=== PATIENT | male | born 1960 | race Caucasian/White ===

== ENCOUNTER 2023-10-29 19:04 | Outpatient (BNV) | payer MEDICARE, SELFPAY | END 2023-11-23 09:41 | PROVIDERS: Admitting Provider Psychiatry & Neurology Psychiatry; Visit Provider Internal Medicine Cardiovascular Disease | DX: I45.10 Unspecified right bundle-branch block (principal); R94.31 Abnormal electrocardiogram [ECG] [EKG] | CPT/HCPCS: 93010 ==

== ENCOUNTER 2023-10-29 19:04 | Inpatient (IN) | payer MEDICARE, SELFPAY ==
--- NOTE | ~2023-10-29 | XR_ITS ---
EXAMINATION: XR ABDOMEN KUB CLINICAL INDICATION: Patient states pain abdomen. Patient in hospital and wearing hospital provided garments per technologist's statement. Cholelithiasis on CT chest of December 21, 2023. COMPARISON: X-ray chest November 14, 2023. CT chest December 21, 2023. TECHNIQUE: 2 AP views of the abdomen. FINDINGS: Degenerative changes in the lumbar spine. Diffuse demineralization. Multiple prominent, distended air-filled loops of small and large bowel. Guptqqan-qx-mumwu amount of stool in the colon. Multiple snaps overlie the upper and lower abdomen and correlation with clinical exam recommended to confirm external location. Small pelvic calcifications are likely vascular. 5 mm calcific/sclerotic density overlying the left inferior pubic ramus, could represent a bony lesion versus a bone island versus a soft tissue calcification. XR/XR KUB IMPRESSION: Multiple prominent, distended air-filled loops of small and large bowel. Iboafzfh-go-ygwdh amount of stool in the colon. Correlation with clinical exam recommended to determine further management including possible additional imaging with CT scan of the abdomen and pelvis if abdominal pathology is suspected. This study was presented today January 19, 2024 for interpretation. Stat results provided at this time as requested by referring provider.
--- NOTE | ~2023-10-29 | XR_ITS ---
EXAMINATION: XR CHEST CLINICAL INFORMATION: Lethargy COMPARISON: None available. TECHNIQUE: Frontal view of the chest was obtained. FINDINGS: Lungs are well expanded. No pulmonary mass, consolidation or pleural effusion. There appears to be a minimal peripheral linear opacity of likely scarring in the right lateral base. Also, a thin linear focus of suspected minimal scarring is seen in the region of the superior lingula. Cardiac silhouette is normal in size. The hilar contours are normal. The pulmonary vascular pattern is normal. Bones appear to be diffusely osteopenic. XR/XR chest 1V IMPRESSION: No evidence of acute disease. No pulmonary mass, pneumonia or pleural effusion.
--- NOTE | ~2023-10-29 | CT_ITS ---
EXAMINATION: CT CHEST WITHOUT CONTRAST CLINICAL INFORMATION: Question aspiration. COMPARISON: Chest radiograph dated 11/14/2023. TECHNIQUE: Multidetector volumetric CT imaging of the chest was done. Axial MIP volume rendering provided. Sagittal and coronal reformatted images were obtained. This CT examination was performed using dose optimization techniques as appropriate, variously including the following: *Automated exposure control *Adjustment of mA and/or kV according to patient size (this includes techniques or standardized protocols for targeted exams where dose is matched to indication/reason for exam; i.e. extremities or head) *Use of iterative reconstruction technique DLP: 236 mGy-cm FINDINGS: JOURNEYMAN GLAZIER: There is mild hyperinflation. The lungs are grossly clear. LUNGS: In the posterior segment of the right upper lobe (5:75 and 7:54), a 4 mm subpleural noncalcified nodule is seen, with adjacent pleural thickening. There is a benign, calcified granuloma within the superior segment of the right lower lobe. There are bibasilar foci of linear scar/subsegmental atelectasis, without associated focal airway obstruction. No mass, infiltrate or groundglass opacity is seen. No generalized small airway thickening is seen. The central airways appear patent. MEDIASTINUM: The mediastinum is normal. CORONARY ARTERY CALCIFICATION: Very mild. PLEURA: There is no pleural effusion. No pleural mass. There is nonspecific pleural thickening at the posterior right base. AXILLA: No lymphadenopathy. UPPER ABDOMEN: There is mild cholelithiasis. The adrenal glands are unremarkable. A benign, simple right renal upper pole cyst is seen. OSSEOUS STRUCTURES: There is a marked kyphoscoliosis. There is multi-level thoracic spondylosis. No acute or aggressive osseous finding is seen. CT/CT chest wo IV con IMPRESSION: 1. No focal infiltrate is seen. 2. A 4 mm noncalcified subpleural nodule is seen within the posterior segment of the right upper lobe. According to the UPDATED 2017 Fleischner Society recommendations, the advised follow-up imaging for solid nodules < 6 mm is: LOW RISK PATIENT: No routine follow-up. HIGH RISK PATIENT: Optional CT at 12 months. 3. There is no thoracic lymphadenopathy or pleural effusion. 4. There is a marked kyphoscoliosis. No acute or aggressive osseous lesion is seen. 5. There is mild cholelithiasis. Fleischner guidelines were followed.
[2023-10-29 20:00] VITALS: BP 125/57; PULSE 93; RESP 18; TEMP 37.3; O2SAT 95
[2023-10-29 23:10] VITALS: BMI 19.6
--- NOTE | 2023-10-30 02:01 | PC.ADMIT ---
Admitted these 63 year old male patient per stretcher via ambulance accompanied by ambulance staff. Patient signed the CV and oriented to the unit, room and staff. Pt put to bed, body search and skin checks done. Pt said he wears eyeglasses for reading, has his own teeth and no dentures. Abdomen soft and nontender w/ + bowel sounds in 4 quadrants and no edema noted. Pt has a hump on his back. All visible skin intact, no bruises and no skin tears noted. During admission process pt is cooperative at the beginning but become irritable and said he wants to sleep. Pt c/o being cold and asking for additional blanket. Pt also said that he is hungry and thirsty. Pt given a chicken salad and a cup of cranberry juice. Pt denies SI/HI/anxiety depression/AVH/ Paranoia/PAIN. Pt refused to sign the legals and said he will sign it tomorrow coz he is very tired already and want to sleep. Roya Condon informed of the admission and waiting for orders. Pt has presenting problems of Failure to thrive in adult, depression, Schizophrenia versus schizo affective D/O, Severe malnutrition, Oropharyngeal dysphagia, ckd2 and Seizure D/O.We'll continue to monitor the patient.
[2023-10-30 08:00] VITALS: BP 98/62; PULSE 89; RESP 18; TEMP 35.8; O2SAT 97
--- NOTE | 2023-10-30 09:38 | HO.PSYADMNOT ---
HPI Date of Service: 10/30/23 Chief Complaint: Schizoaffective disorder, unspecified type Sources of Information: patient interviewed, chart reviewed and crisis/core team assessment reviewed HPI Subjective Notes: [place] Warning and Conditional Voluntary Narrative: Mr. Borjas is a 63 years-old with a hx of schizophrenia. He was initially admitted to psychiatric unit at [facility] in 04/2023 after [facility] due to suicidal statements, presenting with persecutory and paranoid delusions stating family, government and others were after him because he had millions that he has not been able to access. Prior to [facility] to the [facility] pt had been incarcerated for 7 days for violating restraining order that sister had on him for threats to harm her. He was noted to not be eating nor drinking well. He was psychiatrically committed on 05/19/23 and started on olanzapine. He was sent to ED due to dehydration, found to have cholelithiasis, positive aeromonas, treated with IV ceftriaxone. Once medically cleared, he was readmitted to [facility] inpatient psych admission due to inability to care for himself, failure to thrive and committed once again for involuntary psychiatric treatment on 08/10/23. He last admission there was from 07/20-09/06/2023, however, he was sent out about 7 times to the ED, due to severe HOTN and dehydration. [facility] declined to take him back as pt medically more compromised (failure to thrive). Per records, pt was tried on olanzapine, initially then switch to seroquel due to increase confusion with olanzapine. He was also tried on seroquel. He was also tried on clozaril but it states that it was discontinued due to acute mental status changes than improved once clozaril was discontinued. He ultimately treated with combination of abilify, titrated to 20mg po daily, depakote. It does appear that pt did not show any significant improvement and was mostly in bed, with very limited oral intake. On the unit, pt reports he was in the hospital because they were concern about the fact that he was not eating nor drinking. He asked this automatic typewriter inspector to let him sleep, because he felt tired and declined to answer any more questions. He refused all medications today. He also refused labs. Past Psychiatric History: Inpt: 02/2020 [facility] (paranoia); 04/2023-07/15/23 (not eating nor drinking ,paranoid delusions) (he was psychiatrically committed on 05/19/23), 07/20/23-09/06/23: not eating/drinking, several ED transfers due to dehydration OP: none [facility] casework supervisor Lauren Bernard [phone] Hx of suicide attempts several years ago Legal- incarcerated at [facility] for violation of restraining order for 7 months Medical Evaluation Reviewed: Yes [facility] Medical History Schizoaffective disorder Failure to thrive in adult GERD (gastroesophageal reflux disease) Family History: unknown Social History: Per records- pt never . No children. He was raised by both parents and lived with father until he in 2019. Pt has been homeless since. He completed HS, one year college. He has two sister, one is , other one has restraining order against him. Substance History: remote hx of alcohol use. Trauma History: not disclosed Diagnostics Vital Signs (24Hr): Vital Signs - 24 hr 10/29/23 20:00 10/30/23 08:00 Temperature 99.1 F 96.5 F L Pulse Rate 93 89 Respiratory Rate 18 18 Blood Pressure 125/57 L 98/62 Pulse Oximetry 95 97 Oxygen Delivery Method Room Air Room Air BMI result Body Mass Index 19.6 Meds/Allergies Meds Home Medications ?Medication ?Instructions ?Recorded ?Confirmed ?Type Ativan 1 mg PO Q4-6H PRN Anxiety 10/29/23 10/29/23 History Miralax 17 g PO BID 10/29/23 10/29/23 History Zofran 4 mg IV Q4-6H PRN Nausea 10/29/23 10/29/23 History acetaminophen 650 mg PO Q4-6H 10/29/23 10/29/23 History aripiprazole 20 mg PO DAILY 10/29/23 10/29/23 History calcium carbonate 500 mg PO Q3-4H PRN Indigestion 10/29/23 10/29/23 History divalproex 250 mg PO BID 10/29/23 10/29/23 History magnesium hydroxide 15 ml PO DAILY 10/29/23 10/29/23 History nystatin 5 ml PO TID 10/29/23 10/29/23 History paliperidone 3 mg PO BEDTIME 10/29/23 10/29/23 History pantoprazole 40 mg PO DAILY 10/29/23 10/29/23 History senna 8.6 mg PO BEDTIME 10/29/23 10/29/23 History sodium phosphate 1 appl Not Applicable DAILY PRN 10/29/23 10/29/23 History Constipation Allergies Allergies Allergy/AdvReac Type Severity Reaction Status Date / Time omeprazole Allergy Unknown Verified 10/30/23 00:09 Mental Status Exam Mental Status Exam Narrative: Appearance: cachectic, malnourished, in NAD Behavior: guarded, not engaging in any conversation Psychomotor: no agitation or retardation noted Speech: mostly clear, regular rate, minimally spontaneous TP: wanting to rest TC: tired, not wanting to take any medications Mood: tired Affect: constricted SI: unable to assess HI: unable to assess VH/AH: appears internally preoccupied Delusions: unable to assess extend of it Insight/judgment: impaired x 2. memory/cog: alert, not able to assess orientation as pt declines to answer questions. Assessment & Plan Assessment & Plan (1) Schizophrenia: Status: Acute Code(s): F20.9 - Schizophrenia, unspecified Plan Mr. Adame is 63 y/o male with hx schizophrenia who has been [facility] due to minimal oral intake, paranoid delusions, causing severe failure to thrive since 04/2023. He had to be sent out for medical treatment several times due to dehydration, cholelithiasis, ultimately, psychiatric facility [facility] did not [facility] him back as they reported pt needs more medical support. He has been at [facility] since 09/06/2023 pending placement in psychiatric admission. records indicate that pt had minimal response to medications such as olanzapine, abilify, seroquel. He even had clozaril trial but had a marked change in mentation that resolved once this medication was discontinued. Pt also noted to have dysphasia and on chopped food. Will order ST to assess food consistency need. Will also order nutritional consult. Pt already declined medications, food, labs without showing understanding of potential medical conditions. Consider ECT,going for guardianship as pt not able to care for himself. Will also add DVT prophylaxis. PLAN 1. admit to S1, CV, 15 minutes checks 2. continue current medications, monitor VS, oral intake 3. obtain collateral information 4. aftercare planning. Patient educated on: diagnosis and medication risk/benefits Informed Consent: understands Reason for continued inpatient stay Substantial Risk for: inability to function Statement Statement: I have reviewed the history and physical and performed a pertinent examination on my patient. No changes have occurred unless specified. If the History and Physical was not performed prior to admission, the Hospitalist's service will be consulted for completing the admission physical. Time Spent With Patient Time: Total time managing care of this patient today ____ minutes.
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
[2023-10-30] MEDS: Nystatin Oral Susp 500,000 UNIT/5 ML ORAL.SUSP 500000 UNIT PO (14:29)
[2023-10-30 20:00] VITALS: BP 117/74; PULSE 94; RESP 18; TEMP 36.3; O2SAT 97
[2023-10-31 08:00] VITALS: BP 89/54; PULSE 90; RESP 18; TEMP 36.2; O2SAT 96
[2023-10-31] MEDS: Nystatin Oral Susp 500,000 UNIT/5 ML ORAL.SUSP 500000 UNIT PO ×2 (08:14→14:37)
--- NOTE | 2023-10-31 14:47 | P.PNPSI_ITS ---
Subjective Subjective Date of Service: 10/31/23 Reason For Visit: Schizoaffective disorder, unspecified type Subjective Notes: Conditional Voluntary Interim History: Pt woke up at 4am, pacing. slept for total of 6hrs. He continues to decline medication. He had 3 ensures, some fluids. He declined to talk with this check writer salesperson, stating everything is fine. BP on low side. Review of Systems Review of Systems General: No fevers, malaise, unintentional weight loss HEENT: No blurred vision, diplopia. No sore throat, nasal congestion, rhinorrhea, sinus pain, ear pain Cardiovascular: No chest pain, palpitations, or leg edema Respiratory: No shortness of breath, wheezing, cough GI: No abdominal pain, nausea, vomiting, diarrhea, constipation, melena, hematochezia : No dysuria, hematuria, increased urinary frequency, decreased urinary output MSK: No myalgia, back pain Neuro: No headaches, weakness, paresthesias Skin: No rashes or lesions Pt affect flat, unengaged in interview. Question reliability of [facility] Mental Status Exam Mental Status Exam Narrative: Appearance: cachectic, malnourished, in NAD Behavior: guarded, not engaging in any conversation Psychomotor: no agitation or retardation noted Speech: mostly clear, regular rate, minimally spontaneous TP: wanting to rest TC: tired, not wanting to take any medications Mood: tired Affect: constricted SI: unable to assess HI: unable to assess VH/AH: appears internally preoccupied Delusions: unable to assess extend of it Insight/judgment: impaired x 2. memory/cog: alert, not able to assess orientation as pt declines to answer questions. Diagnostics Vital Signs (24Hr): Vital Signs - 24 hr 10/30/23 20:00 10/31/23 08:00 Temperature 97.4 F 97.2 F Pulse Rate 94 90 Respiratory Rate 18 18 Blood Pressure 117/74 89/54 L Pulse Oximetry 97 96 Oxygen Delivery Method Room Air Room Air BMI result Body Mass Index 19.6 Medications Medications Current Medications Acetaminophen (Acetaminophen 325 Mg Tablet) 650 mg PO Q6H PRN PRN Reason: Headache/Pain Mild Scale (1-3) Al Hydroxide/Mg Hydroxide (Magnesium Hydrox/Alum Hydrox 30 Ml Oral.Susp) 30 ml PO Q6H PRN PRN Reason: Heartburn/Nausea Aripiprazole (Aripiprazole 20 Mg Tablet) 20 mg PO DAILY [facility] Last Admin: 10/31/23 08:14 Dose: Not Given Famotidine (Famotidine 20 Mg Tablet) 20 mg PO BID@0630,1630 [facility] Last Admin: 10/31/23 05:56 Dose: Not Given Magnesium Hydroxide (Milk Of Magnesia 30 Ml Oral.Susp) 30 ml PO DAILY PRN PRN Reason: Constipation Mirtazapine (Mirtazapine 15 Mg Tablet) 15 mg PO BEDTIME [facility] Last Admin: 10/30/23 21:13 Dose: Not Given Nystatin (Nystatin Oral Susp 500,000 Unit/5 Ml Oral.Susp) 500,000 unit PO TID S Last Admin: 10/31/23 14:37 Dose: 500,000 unit Paliperidone (Paliperidone Er 3 Mg Tab.Er.24) 3 mg PO BEDTIME [facility] Last Admin: 10/30/23 21:13 Dose: Not Given Senna (Sennosides 8.6 Mg Tablet) 8.6 mg PO BEDTIME [facility] Last Admin: 10/30/23 21:13 Dose: Not Given Trazodone HCl (Trazodone Hcl 50 Mg Tablet) 50 mg PO BEDTIME PRN PRN Reason: Insomnia Allergies Allergies Allergy/AdvReac Type Severity Reaction Status Date / Time omeprazole Allergy Unknown Verified 10/30/23 00:09 Assessment & Plan Assessment & Plan (1) Schizophrenia: Status: Acute Code(s): F20.9 - Schizophrenia, unspecified (2) Routine medical exam: Status: Acute Code(s): Z00.00 - Encounter for general adult medical examination without abnormal findings Plan Mr. Adame is 63 y/o male with hx schizophrenia who has been admitted [facility] due to minimal oral intake, paranoid delusions, causing severe failure to thrive since 04/2023. He had to be sent out for medical treatment several times due to dehydration, cholelithiasis, ultimately, psychiatric facility [facility] did not [facility] him back as they reported pt needs more medical support. He has been at [facility] since 09/06/2023 pending placement in psychiatric admission. records indicate that pt had minimal response to medications such as olanzapine, abilify, seroquel. He even had clozaril trial but had a marked change in mentation that resolved once this medication was discontinued. Pt also noted to have dysphasia and on chopped food. Will order ST to assess food consistency need. Will also order nutritional consult. Pt already declined medications, food, labs without showing understanding of potential medical conditions. Consider ECT,going for guardianship as pt not able to care for himself. Will also add DVT prophylaxis. PLAN 1. admit to S1, CV, 15 minutes checks 2. continue current medications, monitor VS, oral intake 3. obtain collateral information 4. aftercare planning. Reason for continued inpatient stay Substantial Risk for: inability to function Time Spent With Patient Time: Total time managing care of this patient today ____ minutes.
[2023-10-31 20:00] VITALS: BP 111/67; PULSE 91; RESP 18; TEMP 36.4; O2SAT 98
[2023-10-31] MEDS: Magnesium Hydrox/Alum Hydrox 30 ML ORAL.SUSP PO (23:58)
[2023-11-01] MEDS: Famotidine 20 MG TABLET PO ×2 (05:53→16:13)
[2023-11-01 08:00] VITALS: BP 103/56; PULSE 72; RESP 16; TEMP 36.4; O2SAT 96
--- NOTE | 2023-11-01 09:29 | P.PNPSI_ITS ---
Subjective Subjective Date of Service: 11/01/23 Reason For Visit: Schizoaffective disorder, unspecified type Subjective Notes: Conditional Voluntary Interim History: Pt did not sleep much last night. He was pacing, restless. This morning he was walking as well, would sit end of his bed and suddenly would stand up and start pacing. He has been drinking ensure. He reports he plans to stay few days and then on my way. when asked where is he going, he states home maybe. He then after this grant writer asked to clarify stated that he does not have a home. He states he can find one of his own. He declined all medications, mostly combination of antidepressant, remeron and antipsychotic medications. will complete ACL- get an idea as his ability to care forhimself. Review of Systems Review of Systems General: No fevers, malaise, unintentional weight loss HEENT: No blurred vision, diplopia. No sore throat, nasal congestion, rhinorrhea, sinus pain, ear pain Cardiovascular: No chest pain, palpitations, or leg edema Respiratory: No shortness of breath, wheezing, cough GI: No abdominal pain, nausea, vomiting, diarrhea, constipation, melena, hematochezia : No dysuria, hematuria, increased urinary frequency, decreased urinary output MSK: No myalgia, back pain Neuro: No headaches, weakness, paresthesias Skin: No rashes or lesions Pt affect flat, unengaged in interview. Question reliability of ros Mental Status Exam Mental Status Exam Narrative: Appearance: cachectic, malnourished, in NAD Behavior: guarded, not engaging in any conversation Psychomotor: no agitation or retardation noted Speech: mostly clear, regular rate, minimally spontaneous TP: wanting to rest TC: tired, not wanting to take any medications Mood: tired Affect: constricted SI: denies HI:denies VH/AH: appears internally preoccupied Delusions: suspicious about medications/treatment Insight/judgment: impaired x 2. memory/cog: alert, not able to assess orientation as pt declines to answer questions. Diagnostics Vital Signs (24Hr): Vital Signs - 24 hr 10/31/23 20:00 11/01/23 08:00 Temperature 97.6 F 97.6 F Pulse Rate 91 72 Respiratory Rate 18 16 Blood Pressure 111/67 103/56 L Pulse Oximetry 98 96 Oxygen Delivery Method Room Air Room Air BMI result Body Mass Index 19.6 Medications Medications Current Medications Acetaminophen (Acetaminophen 325 Mg Tablet) 650 mg PO Q6H PRN PRN Reason: Headache/Pain Mild Scale (1-3) Al Hydroxide/Mg Hydroxide (Magnesium Hydrox/Alum Hydrox 30 Ml Oral.Susp) 30 ml PO Q6H PRN PRN Reason: Heartburn/Nausea Last Admin: 10/31/23 23:58 Dose: 30 ml Aripiprazole (Aripiprazole 20 Mg Tablet) 20 mg PO DAILY [facility] Last Admin: 10/31/23 08:14 Dose: Not Given Famotidine (Famotidine 20 Mg Tablet) 20 mg PO BID@0630,1630 [facility] Last Admin: 11/01/23 05:53 Dose: 20 mg Magnesium Hydroxide (Milk Of Magnesia 30 Ml Oral.Susp) 30 ml PO DAILY PRN PRN Reason: Constipation Mirtazapine (Mirtazapine 15 Mg Tablet) 15 mg PO BEDTIME [facility] Last Admin: 10/31/23 22:08 Dose: Not Given Nystatin (Nystatin Oral Susp 500,000 Unit/5 Ml Oral.Susp) 500,000 unit PO TID [facility] Last Admin: 10/31/23 22:08 Dose: Not Given Paliperidone (Paliperidone Er 3 Mg Tab.Er.24) 3 mg PO BEDTIME [facility] Last Admin: 10/31/23 22:08 Dose: Not Given Senna (Sennosides 8.6 Mg Tablet) 8.6 mg PO BEDTIME [facility] Last Admin: 10/31/23 22:08 Dose: Not Given Trazodone HCl (Trazodone Hcl 50 Mg Tablet) 50 mg PO BEDTIME PRN PRN Reason: Insomnia Allergies Allergies Allergy/AdvReac Type Severity Reaction Status Date / Time omeprazole Allergy Unknown Verified 10/30/23 00:09 Assessment & Plan Assessment & Plan (1) Schizophrenia: Status: Acute Code(s): F20.9 - Schizophrenia, unspecified Plan Mr. Adame is 63 y/o male with hx schizophrenia who has been admitted to [facility] for psychiatric treatment due to minimal oral intake, paranoid delusions, causing severe failure to thrive since 04/2023. He had to be sent out for medical treatment several times due to dehydration, cholelithiasis, ultimately, psychiatric facility [facility] did not take him back as they reported pt needs more medical support. He has been at [facility] since 09/06/2023 pending placement in psychiatric admission. records indicate that pt had minimal response to medications such as olanzapine, abilify, seroquel. He even had clozaril trial but had a marked change in mentation that resolved once this medication was discontinued. Pt also noted to have dysphasia and on chopped food. Will order ST to assess food consistency need. Will also order nutritional consult. Pt already declined medications, food, labs without showing understanding of potential medical conditions. Consider ECT,going for guardianship as pt not able to care for himself. Will also add DVT prophylaxis. PLAN 1. admit to S1, CV, 15 minutes checks 2. continue current medications, monitor VS, oral intake 3. obtain collateral information 4. aftercare planning. Reason for continued inpatient stay Substantial Risk for: inability to function Time Spent With Patient Time: Total time managing care of this patient today ____ minutes.
[2023-11-01] MEDS: Nystatin Oral Susp 500,000 UNIT/5 ML ORAL.SUSP 500000 UNIT PO ×2 (10:43→15:06)
[2023-11-01] MEDS: ARIPiprazole 20 MG TABLET PO (10:43)
[2023-11-01 15:29] VITALS: BMI 19.6
--- NOTE | 2023-11-01 15:37 | MHC.SL.SWA ---
Speech Pathologist Impression: Oral phase dysphagia Dysphasia Diet Status:Upgrade from NDD2 to NDD3 Liquid Consistency and Strategies for Safe Swallow: Liquid Intake Recommendation: Thin Liquid Intake Strategies: Small Sips Solid Food Consistency: Dietary Recommendations: Chopped/Advanced (NDD3) Additional Modifications to Solid Foods: Patient w/ mild oral phase dysphagia, characterized by prolonged period of mastication on harder solids and mild oral residue post-swallow. Patient is able to clear residuals with dry swallow and/or sips of liquid. No overt s/s of aspiration observed with PO intake. Recommend UPGRADE to CHOPPED/ADVANCED (NDD3) diet, continue on THIN liquids, pills CRUSHED in PUREE. Recommend strategies to promote oral clearance: take small bites, dry swallow between bites, alternate solids/liquids. Oral Medication Intake: Crushed with Puree Please contact the pharmacy regarding appropriate crushable or liquid drug formulations that are available whenever modified delivery is recommended. Compensatory Strategies and Precautions to be Taken for Safe Swallow: Sitting Upright (90 deg) Double Swallow Small Bites and Sips Alternate Liquids/Solids Rate of Ingestion Change Avoid Specific Foods Supervision While Eating and Drinking for Safe Swallow: Total Supervision (1:1) Foods to Avoid: Hard, dry, tough to chew solids Swallowing Recommended Treatments: Compens. Strategy Educat. Recommendation for Speech: Inpatient Speech Therapy Comment: SCHOLARSHIP COUNSELOR to f/u 1-2x to monitor tolerance Frequency/Duration: M-F PRN Date Range for Service Req: Timeline to reassess: Dry Cell Sealer Clinican/Clinical Fellow: No Supervisory Statement: I have reviewed and agree with the student/clinical fellow's documentation: N/A Speech Language Pathologist: Minerva Carmen M.A., [facility]-SCHOLARSHIP COUNSELOR
--- NOTE | 2023-11-01 15:41 | MHC.CLN ---
NUTRITION CONSULT FOR FAILURE TO THRIVE. DIET=REGULAR, GROUND. HX VERY POOR INTAKE. ACCEPTS ENSURE SUPPLEMENT. ENSURE TID ORDERED (1050 KCALS, 60 G PROTEIN). SUPPLEMENT ALSO AVAILABLE ON THE UNIT AND STAFF MAY PROVIDE ACCEPTED BY PATIENT. QUALIFIES MODERATELY MALNOURISHED BASED ON REPORTED HX POOR PO AND MILD DEPLETION OF BODY FAT AND MUSCLE MASS. FOLLOW FOR PO INTAKE. ENCOURAGE INTAKE ABLE. SEE CLINICAL NUTRITION ASSESSMENT 11/01/23.
[2023-11-01 20:00] VITALS: BP 93/53; PULSE 77; RESP 18; TEMP 36.2; O2SAT 98
[2023-11-02] MEDS: Famotidine 20 MG TABLET PO ×2 (06:58→15:57)
[2023-11-02 08:00] VITALS: BP 94/56; PULSE 76; RESP 18; TEMP 36.2; O2SAT 96
[2023-11-02] MEDS: Nystatin Oral Susp 500,000 UNIT/5 ML ORAL.SUSP 500000 UNIT PO ×2 (10:04→15:57)
[2023-11-02] MEDS: ARIPiprazole 20 MG TABLET PO (10:04)
--- NOTE | 2023-11-02 10:33 | HO.PSYCHPN ---
Subjective Subjective Date of Service: 11/02/23 Reason For Visit: Schizoaffective disorder, unspecified type Subjective Notes: Conditional Voluntary Interim History: Pt pacing mostly at night, slept only 4 hrs. He reports he bit side of his mouth and it hurts. He denies SI/HI. He continues to refused medications for mood and antipsychotics. impaired insight as to his inability to care for himself. nursing monitoring closely his oral intake- he has had 3 ensures today. Review of Systems Review of Systems General: No fevers, malaise, unintentional weight loss HEENT: No blurred vision, diplopia. No sore throat, nasal congestion, rhinorrhea, sinus pain, ear pain Cardiovascular: No chest pain, palpitations, or leg edema Respiratory: No shortness of breath, wheezing, cough GI: No abdominal pain, nausea, vomiting, diarrhea, constipation, melena, hematochezia : No dysuria, hematuria, increased urinary frequency, decreased urinary output MSK: No myalgia, back pain Neuro: No headaches, weakness, paresthesias Skin: No rashes or lesions Pt affect flat, unengaged in interview. Question reliability of ros Mental Status Exam Mental Status Exam Narrative: Appearance: cachectic, malnourished, in NAD Behavior: guarded, not engaging in any conversation Psychomotor: no agitation or retardation noted Speech: mostly clear, regular rate, minimally spontaneous TP: wanting to rest TC: tired, not wanting to take any medications Mood: tired Affect: constricted SI: denies HI:denies VH/AH: appears internally preoccupied Delusions: suspicious about medications/treatment Insight/judgment: impaired x 2. memory/cog: alert, not able to assess orientation as pt declines to answer questions. Diagnostics Vital Signs (24Hr): Vital Signs - 24 hr 11/01/23 20:00 11/02/23 08:00 Temperature 97.1 F 97.2 F Pulse Rate 77 76 Respiratory Rate 18 18 Blood Pressure 93/53 L 94/56 L Pulse Oximetry 98 96 Oxygen Delivery Method Room Air Room Air BMI result Body Mass Index 19.6 Medications Medications Current Medications Acetaminophen (Acetaminophen 325 Mg Tablet) 650 mg PO Q6H PRN PRN Reason: Headache/Pain Mild Scale (1-3) Al Hydroxide/Mg Hydroxide (Magnesium Hydrox/Alum Hydrox 30 Ml Oral.Susp) 30 ml PO Q6H PRN PRN Reason: Heartburn/Nausea Last Admin: 10/31/23 23:58 Dose: 30 ml Aripiprazole (Aripiprazole 20 Mg Tablet) 20 mg PO DAILY [facility] Last Admin: 11/02/23 10:04 Dose: 20 mg Famotidine (Famotidine 20 Mg Tablet) 20 mg PO BID@0630,1630 [facility] Last Admin: 11/02/23 06:58 Dose: 20 mg Magnesium Hydroxide (Milk Of Magnesia 30 Ml Oral.Susp) 30 ml PO DAILY PRN PRN Reason: Constipation Mirtazapine (Mirtazapine 15 Mg Tablet) 15 mg PO BEDTIME [facility] Last Admin: 11/01/23 22:08 Dose: Not Given Nystatin (Nystatin Oral Susp 500,000 Unit/5 Ml Oral.Susp) 500,000 unit PO TID [facility] Last Admin: 11/02/23 10:04 Dose: 500,000 unit Paliperidone (Paliperidone Er 3 Mg Tab.Er.24) 3 mg PO BEDTIME [facility] Last Admin: 11/01/23 22:08 Dose: Not Given Senna (Sennosides 8.6 Mg Tablet) 8.6 mg PO BEDTIME [facility] Last Admin: 11/01/23 22:08 Dose: Not Given Trazodone HCl (Trazodone Hcl 50 Mg Tablet) 50 mg PO BEDTIME PRN PRN Reason: Insomnia Allergies Allergies Allergy/AdvReac Type Severity Reaction Status Date / Time omeprazole Allergy Unknown Verified 10/30/23 00:09 Assessment & Plan Assessment & Plan (1) Schizophrenia: Status: Acute Code(s): F20.9 - Schizophrenia, unspecified Plan Mr. Adame is 63 y/o male with hx schizophrenia who has been admitted [facility] for [facility] due to minimal oral intake, paranoid delusions, causing severe failure to thrive since 04/2023. He had to be sent out for medical treatment several times due to dehydration, cholelithiasis, ultimately, psychiatric facility [facility] did [facility] him [facility] as they reported pt needs more medical support. He has been at [facility] since 09/06/2023 pending placement in psychiatric admission. records indicate that pt had minimal response to medications such as olanzapine, abilify, seroquel. He even had clozaril trial but had a marked change in mentation that resolved once this medication was discontinued. Pt also noted to have dysphasia and on chopped food. Will order ST to assess food consistency need. Will also order nutritional consult. Pt already declined medications, food, labs without showing understanding of potential medical conditions. Consider ECT,going for guardianship as pt not able to care for himself. Will also add DVT prophylaxis. PLAN 1. admit to S1, CV, 15 minutes checks 2. continue current medications, monitor VS, oral intake 3. obtain collateral information 4. aftercare planning. Reason for continued inpatient stay Substantial Risk for: inability to function Time Spent With Patient Time: Total time managing care of this patient today ____ minutes.
[2023-11-02 20:00] VITALS: BP 106/72; PULSE 92; RESP 16; TEMP 36; O2SAT 99
[2023-11-03] MEDS: Famotidine 20 MG TABLET PO (05:42)
[2023-11-03 08:00] VITALS: BP 108/67; PULSE 95; RESP 18; TEMP 37.1; O2SAT 98
[2023-11-03] MEDS: Nystatin Oral Susp 500,000 UNIT/5 ML ORAL.SUSP 500000 UNIT PO ×2 (08:55→14:30)
--- NOTE | 2023-11-03 09:10 | HO.PSYCHPN ---
Subjective Subjective Date of Service: 11/03/23 Reason For Visit: Schizoaffective disorder, unspecified type Subjective Notes: [place] Warning and Conditional Voluntary Interim History: Pt slept 8hrs. He continues to refuses medications, pacing at times. He did not have any ensures today nor any food, despite nursing offering for several days. Pt guarded, minimally talking or engaging in conversation with this technical report writer or staff. Review of Systems Review of Systems General: No fevers, malaise, unintentional weight loss HEENT: No blurred vision, diplopia. No sore throat, nasal congestion, rhinorrhea, sinus pain, ear pain Cardiovascular: No chest pain, palpitations, or leg edema Respiratory: No shortness of breath, wheezing, cough GI: No abdominal pain, nausea, vomiting, diarrhea, constipation, melena, hematochezia : No dysuria, hematuria, increased urinary frequency, decreased urinary output MSK: No myalgia, back pain Neuro: No headaches, weakness, paresthesias Skin: No rashes or lesions Pt affect flat, unengaged in interview. Question reliability of ros Mental Status Exam Mental Status Exam Narrative: Appearance: cachectic, malnourished, in NAD Behavior: guarded, not engaging in any conversation Psychomotor: no agitation or retardation noted Speech: mostly clear, regular rate, minimally spontaneous TP: wanting to rest TC: tired, not wanting to take any medications Mood: tired Affect: constricted SI: denies HI:denies VH/AH: appears internally preoccupied Delusions: suspicious about medications/treatment Insight/judgment: impaired x 2. memory/cog: alert, not able to assess orientation as pt declines to answer questions. Diagnostics Vital Signs (24Hr): Vital Signs - 24 hr 11/02/23 20:00 11/03/23 08:00 Temperature 96.8 F 98.8 F Pulse Rate 92 95 Respiratory Rate 16 18 Blood Pressure 106/72 108/67 Pulse Oximetry 99 98 Oxygen Delivery Method Room Air Room Air BMI result Body Mass Index 19.6 Medications Medications Current Medications Acetaminophen (Acetaminophen 325 Mg Tablet) 650 mg PO Q6H PRN PRN Reason: Headache/Pain Mild Scale (1-3) Al Hydroxide/Mg Hydroxide (Magnesium Hydrox/Alum Hydrox 30 Ml Oral.Susp) 30 ml PO Q6H PRN PRN Reason: Heartburn/Nausea Last Admin: 10/31/23 23:58 Dose: 30 ml Aripiprazole (Aripiprazole 20 Mg Tablet) 20 mg PO DAILY [facility] Last Admin: 11/03/23 08:55 Dose: Not Given Famotidine (Famotidine 20 Mg Tablet) 20 mg PO BID@0630,1630 [facility] Last Admin: 11/03/23 05:42 Dose: 20 mg Magnesium Hydroxide (Milk Of Magnesia 30 Ml Oral.Susp) 30 ml PO DAILY PRN PRN Reason: Constipation Mirtazapine (Mirtazapine 15 Mg Tablet) 15 mg PO BEDTIME [facility] Last Admin: 11/02/23 20:33 Dose: Not Given Nystatin (Nystatin Oral Susp 500,000 Unit/5 Ml Oral.Susp) 500,000 unit PO TID [facility] Last Admin: 11/03/23 08:55 Dose: 500,000 unit Paliperidone (Paliperidone Er 3 Mg Tab.Er.24) 3 mg PO BEDTIME [facility] Last Admin: 11/02/23 20:34 Dose: Not Given Senna (Sennosides 8.6 Mg Tablet) 8.6 mg PO BEDTIME [facility] Last Admin: 11/02/23 20:34 Dose: Not Given Trazodone HCl (Trazodone Hcl 50 Mg Tablet) 50 mg PO BEDTIME PRN PRN Reason: Insomnia Allergies Allergies Allergy/AdvReac Type Severity Reaction Status Date / Time omeprazole Allergy Unknown Verified 10/30/23 00:09 Assessment & Plan Assessment & Plan (1) Schizophrenia: Status: Acute Code(s): F20.9 - Schizophrenia, unspecified Plan Mr. Adame is 63 y/o male with hx schizophrenia who has been admitted [facility] for [facility] due to minimal oral intake, paranoid delusions, causing severe failure to thrive since 04/2023. He had to be sent out for medical treatment several times due to dehydration, cholelithiasis, ultimately, psychiatric [facility] as they reported pt needs more medical support. He has been at [facility] since 09/06/2023 pending placement in psychiatric admission. records indicate that pt had minimal response to medications such as olanzapine, abilify, seroquel. He even had clozaril trial but had a marked change in mentation that resolved once this medication was discontinued. Pt also noted to have dysphasia and on chopped food. Will order ST to assess food consistency need. Will also order nutritional consult. Pt already declined medications, food, labs without showing understanding of potential medical conditions. Consider ECT,going for guardianship as pt not able to care for himself. Will also add DVT prophylaxis. PLAN 11/02 did not eat or drink anything. minimally eating or drinking. Reason for continued inpatient stay Substantial Risk for: inability to function Time Spent With Patient Time: Total time managing care of this patient today ____ minutes.
--- NOTE | 2023-11-03 14:24 | MHC.CLN ---
F/U DIET=REGULAR. VERY POOR INTAKE OF FOOD. ACCEPTS ENSURE SUPPLEMENT. ENSURE TID ORDERED (1050 KCALS, 60 G PROTEIN). SUPPLEMENT ALSO AVAILABLE ON THE UNIT AND STAFF MAY PROVIDE ACCEPTED BY PATIENT. FOLLOW FOR PO INTAKE. ENCOURAGE INTAKE ABLE.
[2023-11-03 19:50] VITALS: BP 93/53; PULSE 79; RESP 18; TEMP 37.2; O2SAT 95
[2023-11-04 07:00] VITALS: BMI 17.2
[2023-11-04 08:27] VITALS: BP 117/75; PULSE 101; RESP 17; TEMP 37; O2SAT 98
[2023-11-04] MEDS: Nystatin Oral Susp 500,000 UNIT/5 ML ORAL.SUSP 500000 UNIT PO (16:06)
[2023-11-04] MEDS: Famotidine 20 MG TABLET PO (16:41)
[2023-11-04 20:00] VITALS: BP 99/60; PULSE 82; RESP 16; TEMP 36.1; O2SAT 97
[2023-11-04] MEDS: Acetaminophen 325 MG TABLET 650 MG PO (20:55)
[2023-11-05 08:19] VITALS: BP 101/70; PULSE 90; RESP 17; TEMP 36.8; O2SAT 98
--- NOTE | 2023-11-05 08:32 | HO.PSYCHPN ---
Subjective Subjective Date of Service: 11/04/23 Reason For Visit: Schizoaffective disorder, unspecified type Subjective Notes: Conditional Voluntary Interim History: Pt slept 8hrs. He continues to refuses medications, pacing at times. He had 3 ensures today. urine is dark- ordered UA and labs to check renal function as he is not eating nor drinking consistently. he continues to declined medication, minimally engaging with peers or staff. very malnourished Review of Systems Review of Systems General: No fevers, malaise, unintentional weight loss HEENT: No blurred vision, diplopia. No sore throat, nasal congestion, rhinorrhea, sinus pain, ear pain Cardiovascular: No chest pain, palpitations, or leg edema Respiratory: No shortness of breath, wheezing, cough GI: No abdominal pain, nausea, vomiting, diarrhea, constipation, melena, hematochezia : No dysuria, hematuria, increased urinary frequency, decreased urinary output MSK: No myalgia, back pain Neuro: No headaches, weakness, paresthesias Skin: No rashes or lesions Pt affect flat, unengaged in interview. Question reliability of ros Mental Status Exam Mental Status Exam Narrative: Appearance: cachectic, malnourished, in NAD Behavior: guarded, not engaging in any conversation Psychomotor: no agitation or retardation noted Speech: mostly clear, regular rate, minimally spontaneous TP: wanting to rest TC: tired, not wanting to take any medications Mood: tired Affect: constricted SI: denies HI:denies VH/AH: appears internally preoccupied Delusions: suspicious about medications/treatment Insight/judgment: impaired x 2. memory/cog: alert, not able to assess orientation as pt declines to answer questions. Diagnostics Vital Signs (24Hr): Vital Signs - 24 hr 11/04/23 20:00 11/05/23 08:19 Temperature 96.9 F 98.3 F Pulse Rate 82 90 Respiratory Rate 16 17 Blood Pressure 99/60 101/70 Pulse Oximetry 97 98 Oxygen Delivery Method Room Air Room Air BMI result Body Mass Index 17.2 Medications Medications Current Medications Acetaminophen (Acetaminophen 325 Mg Tablet) 650 mg PO Q6H PRN PRN Reason: Headache/Pain Mild Scale (1-3) Last Admin: 11/04/23 20:55 Dose: 650 mg Al Hydroxide/Mg Hydroxide (Magnesium Hydrox/Alum Hydrox 30 Ml Oral.Susp) 30 ml PO Q6H PRN PRN Reason: Heartburn/Nausea Last Admin: 10/31/23 23:58 Dose: 30 ml Aripiprazole (Aripiprazole 20 Mg Tablet) 20 mg PO DAILY [facility] Last Admin: 11/04/23 08:31 Dose: Not Given Famotidine (Famotidine 20 Mg Tablet) 20 mg PO BID@0630,1630 [facility] Last Admin: 11/05/23 05:33 Dose: Not Given Magnesium Hydroxide (Milk Of Magnesia 30 Ml Oral.Susp) 30 ml PO DAILY PRN PRN Reason: Constipation Mirtazapine (Mirtazapine 15 Mg Tablet) 15 mg PO BEDTIME [facility] Last Admin: 11/04/23 20:46 Dose: Not Given Nystatin (Nystatin Oral Susp 500,000 Unit/5 Ml Oral.Susp) 500,000 unit PO TID [facility] Last Admin: 11/04/23 20:47 Dose: Not Given Paliperidone (Paliperidone Er 3 Mg Tab.Er.24) 3 mg PO BEDTIME [facility] Last Admin: 11/04/23 20:47 Dose: Not Given Senna (Sennosides 8.6 Mg Tablet) 8.6 mg PO BEDTIME [facility] Last Admin: 11/04/23 20:47 Dose: Not Given Trazodone HCl (Trazodone Hcl 50 Mg Tablet) 50 mg PO BEDTIME PRN PRN Reason: Insomnia Allergies Allergies Allergy/AdvReac Type Severity Reaction Status Date / Time omeprazole Allergy Unknown Verified 10/30/23 00:09 Assessment & Plan Assessment & Plan (1) Schizophrenia: Status: Acute Code(s): F20.9 - Schizophrenia, unspecified Plan Mr. Adame is 63 y/o male with hx schizophrenia who has been [facility] due to minimal oral intake, paranoid delusions, causing severe failure to thrive since 04/2023. He had to be sent out for medical treatment several times due to dehydration, cholelithiasis, ultimately, psychiatric [facility] did not [facility] as they reported pt needs more medical support. He has been at [facility] since 09/06/2023 pending placement in psychiatric admission. records indicate that pt had minimal response to medications such as olanzapine, abilify, seroquel. He even had clozaril trial but had a marked change in mentation that resolved once this medication was discontinued. Pt also noted to have dysphasia and on chopped food. Will order ST to assess food consistency need. Will also order nutritional consult. Pt already declined medications, food, labs without showing understanding of potential medical conditions. Consider ECT,going for guardianship as pt not able to care for himself. Will also add DVT prophylaxis. PLAN 11/02 did not eat or drink anything. minimally eating or drinking. 11/03 he had 3 ensures today, however, dark urine, UA and CMP ordered. BP low but stable. Reason for continued inpatient stay Substantial Risk for: inability to function Time Spent With Patient Time: Total time managing care of this patient today ____ minutes.
[2023-11-05] MEDS: ARIPiprazole 20 MG TABLET PO (10:06)
[2023-11-05] MEDS: Nystatin Oral Susp 500,000 UNIT/5 ML ORAL.SUSP 500000 UNIT PO ×3 (10:06→20:51)
--- NOTE | 2023-11-05 12:26 | MHC.CLN ---
F/U DIET=REGULAR. VERY POOR INTAKE OF FOOD. ACCEPTS ENSURE SUPPLEMENT. ENSURE TID ORDERED (1050 KCALS, 60 G PROTEIN). IF CONSUMED 100% PROVIDES APPROX 60% OF ESTIMATED ENERGY NEEDS. NO LABS, PT REFUSING. PATIENT STATUS IS FULL CODE. ENCOURAGE ADDITIONAL SUPPLEMENTS FROM UNIT KITCHEN. FOLLOW FOR PO INTAKE. ENCOURAGE INTAKE ABLE.
[2023-11-05] MEDS: Famotidine 20 MG TABLET PO (15:38)
[2023-11-05 20:00] VITALS: BP 104/59; PULSE 91; RESP 18; TEMP 37.2; O2SAT 96
--- NOTE | 2023-11-05 23:22 | HO.PSYCHPN ---
Subjective Subjective Date of Service: 11/05/23 Reason For Visit: Schizoaffective disorder, unspecified type Interim History: Patient isolated withdrawn denies wanting to but minimally eating taking in almost no fluid Patient withdrawn internally preoccupied guarded denies hallucinations can not explain why he has not eating this a it makes him refused all medication reported history of schizophrenia Mental Status Exam Mental Status Exam Narrative: Appearance: cachectic, malnourished, in NAD Behavior: guarded, not engaging in any conversation Psychomotor: no agitation or retardation noted Speech: mostly clear, regular rate, minimally spontaneous TP: wanting to rest TC: tired, not wanting to take any medications Mood: tired Affect: constricted SI: denies HI:denies VH/AH: appears internally preoccupied Delusions: suspicious about medications/treatment Insight/judgment: impaired x 2. memory/cog: alert, not able to assess orientation as pt declines to answer questions. Diagnostics Vital Signs (24Hr): Vital Signs - 24 hr 11/05/23 08:19 11/05/23 20:00 Temperature 98.3 F 98.9 F Pulse Rate 90 91 Respiratory Rate 17 18 Blood Pressure 101/70 104/59 L Pulse Oximetry 98 96 Oxygen Delivery Method Room Air Room Air BMI result Body Mass Index 17.2 Medications Medications Current Medications Acetaminophen (Acetaminophen 325 Mg Tablet) 650 mg PO Q6H PRN PRN Reason: Headache/Pain Mild Scale (1-3) Last Admin: 11/04/23 20:55 Dose: 650 mg Al Hydroxide/Mg Hydroxide (Magnesium Hydrox/Alum Hydrox 30 Ml Oral.Susp) 30 ml PO Q6H PRN PRN Reason: Heartburn/Nausea Last Admin: 10/31/23 23:58 Dose: 30 ml Aripiprazole (Aripiprazole 20 Mg Tablet) 20 mg PO DAILY [facility] Last Admin: 11/05/23 10:06 Dose: 20 mg Famotidine (Famotidine 20 Mg Tablet) 20 mg PO BID@0630,1630 [facility] Last Admin: 11/05/23 15:38 Dose: 20 mg Magnesium Hydroxide (Milk Of Magnesia 30 Ml Oral.Susp) 30 ml PO DAILY PRN PRN Reason: Constipation Mirtazapine (Mirtazapine 15 Mg Tablet) 15 mg PO BEDTIME [facility] Last Admin: 11/05/23 20:53 Dose: Not Given Nystatin (Nystatin Oral Susp 500,000 Unit/5 Ml Oral.Susp) 500,000 unit PO TID [facility] Last Admin: 11/05/23 20:51 Dose: 500,000 unit Paliperidone (Paliperidone Er 3 Mg Tab.Er.24) 3 mg PO BEDTIME [facility] Last Admin: 11/05/23 20:52 Dose: Not Given Senna (Sennosides 8.6 Mg Tablet) 8.6 mg PO BEDTIME [facility] Last Admin: 11/05/23 20:52 Dose: Not Given Trazodone HCl (Trazodone Hcl 50 Mg Tablet) 50 mg PO BEDTIME PRN PRN Reason: Insomnia Allergies Allergies Allergy/AdvReac Type Severity Reaction Status Date / Time omeprazole Allergy Unknown Verified 10/30/23 00:09 Assessment & Plan Assessment & Plan (1) Schizophrenia: Status: Acute Code(s): F20.9 - Schizophrenia, unspecified Plan Mr. Adame is 63 y/o male with hx schizophrenia who [facility] due to minimal oral intake, paranoid delusions, causing severe failure to thrive since 04/2023. He had to be sent out for medical treatment several times due to dehydration, cholelithiasis, ultimately, [facility] as they reported pt needs more medical support. He has been at [facility] since 09/06/2023 pending placement in psychiatric admission. records indicate that pt had minimal response to medications such as olanzapine, abilify, seroquel. He even had clozaril trial but had a marked change in mentation that resolved once this medication was discontinued. Pt also noted to have dysphasia and on chopped food. Will order ST to assess food consistency need. Will also order nutritional consult. Pt already declined medications, food, labs without showing understanding of potential medical conditions. Consider ECT,going for guardianship as pt not able to care for himself. Will also add DVT prophylaxis. PLAN 11/02 did not eat or drink anything. minimally eating or drinking. 11/03 he had 3 ensures today, however, dark urine, UA and CMP ordered. BP low but stable. Reason for continued inpatient stay Substantial Risk for: rapid decompensation and med/psych decompensation Time Spent With Patient Time: Total time managing care of this patient today ____ minutes.
[2023-11-06] MEDS: Famotidine 20 MG TABLET PO ×2 (05:56→15:07)
--- NOTE | 2023-11-06 06:50 | PC.NURSE ---
Patient continues to have poor intake, drank 3 ensures during shift.
[2023-11-06 08:00] VITALS: BP 96/64; PULSE 95; RESP 18; O2SAT 97
[2023-11-06] MEDS: ARIPiprazole 20 MG TABLET PO (10:07)
[2023-11-06] MEDS: Nystatin Oral Susp 500,000 UNIT/5 ML ORAL.SUSP 500000 UNIT PO ×3 (10:07→20:57)
--- NOTE | 2023-11-06 10:13 | P.PNPSI_ITS ---
Subjective Subjective Date of Service: 11/06/23 Reason For Visit: Schizoaffective disorder, unspecified type Subjective Notes: Conditional Voluntary Interim History: The nursing staff reported the patient had been isolative, medication compliant. He is only drinking anxious at least 6 in the morning and 3 at night. He had been incontinent he has refused labs. We were not been able to do a UA. The staff noticed the patient paces in the hallway and he has refused his medications. On interview the patient denies new symptoms states that he is only drinking ensure. Mental Status Exam Mental Status Exam Patient Appearance: Appropriate Patient Orientation: Person and Situation Level of Consciousness: Awake Patient Behavior: Guarded and Suspicious Mood Description: Withdrawn Affect Description: Constricted Patient Cognition Impaired: Yes Ability to Follow Directions: Fair Speech Pattern: Clear Hallucinations: None Delusions: Paranoid Ideation and Ideas of Reference Thought Process: Distracted and Slowed Thinking Thought Content: positive for [place] and positive for Poverty of Content Judgement: Poor Diagnostics Vital Signs (24Hr): Vital Signs - 24 hr 11/05/23 20:00 11/06/23 08:00 Temperature 98.9 F Pulse Rate 91 95 Respiratory Rate 18 18 Blood Pressure 104/59 L 96/64 Pulse Oximetry 96 97 Oxygen Delivery Method Room Air Room Air BMI result Body Mass Index 17.2 Medications Medications Current Medications Acetaminophen (Acetaminophen 325 Mg Tablet) 650 mg PO Q6H PRN PRN Reason: Headache/Pain Mild Scale (1-3) Last Admin: 11/04/23 20:55 Dose: 650 mg Al Hydroxide/Mg Hydroxide (Magnesium Hydrox/Alum Hydrox 30 Ml Oral.Susp) 30 ml PO Q6H PRN PRN Reason: Heartburn/Nausea Last Admin: 10/31/23 23:58 Dose: 30 ml Aripiprazole (Aripiprazole 20 Mg Tablet) 20 mg PO DAILY [facility] Last Admin: 11/06/23 10:07 Dose: 20 mg Famotidine (Famotidine 20 Mg Tablet) 20 mg PO BID@0630,1630 [facility] Last Admin: 11/06/23 05:56 Dose: 20 mg Magnesium Hydroxide (Milk Of Magnesia 30 Ml Oral.Susp) 30 ml PO DAILY PRN PRN Reason: Constipation Mirtazapine (Mirtazapine 15 Mg Tablet) 15 mg PO BEDTIME [facility] Last Admin: 11/05/23 20:53 Dose: Not Given Nystatin (Nystatin Oral Susp 500,000 Unit/5 Ml Oral.Susp) 500,000 unit PO TID [facility] Last Admin: 11/06/23 10:07 Dose: 500,000 unit Paliperidone (Paliperidone Er 3 Mg Tab.Er.24) 3 mg PO BEDTIME [facility] Last Admin: 11/05/23 20:52 Dose: Not Given Senna (Sennosides 8.6 Mg Tablet) 8.6 mg PO BEDTIME [facility] Last Admin: 11/05/23 20:52 Dose: Not Given Trazodone HCl (Trazodone Hcl 50 Mg Tablet) 50 mg PO BEDTIME PRN PRN Reason: Insomnia Allergies Allergies Allergy/AdvReac Type Severity Reaction Status Date / Time omeprazole Allergy Unknown Verified 10/30/23 00:09 Assessment & Plan Assessment & Plan (1) Schizophrenia: Status: Acute Code(s): F20.9 - Schizophrenia, unspecified Plan Mr. Adame is 63 y/o male with hx schizophrenia who has been [facility] due to minimal oral intake, paranoid delusions, causing severe failure to thrive since 04/2023. He had to be sent out for medical treatment several times due to dehydration, cholelithiasis, ultimately, [facility] as they reported pt needs more medical support. He has been at [facility] since 09/06/2023 pending placement in psychiatric admission. records indicate that pt had minimal response to medications such as olanzapine, abilify, seroquel. He even had clozaril trial but had a marked change in mentation that resolved once this medication was discontinued. Pt also noted to have dysphasia and on chopped food. Will order ST to assess food consistency need. Will also order nutritional consult. Pt already declined medications, food, labs without showing understanding of potential medical conditions. Consider ECT,going for guardianship as pt not able to care for himself. Will also add DVT prophylaxis. PLAN 11/02 did not eat or drink anything. minimally eating or drinking. 11/03 he had 3 ensures today, however, dark urine, UA and CMP ordered. BP low but stable. 11/05 continue same treatment Reason for continued inpatient stay Substantial Risk for: inability to function, rapid decompensation and med/psych decompensation Time Spent With Patient Time: Total time managing care of this patient today __20__ minutes.
[2023-11-06 20:00] VITALS: BP 95/59; PULSE 78; RESP 18; TEMP 37.3; O2SAT 95
[2023-11-07] MEDS: Famotidine 20 MG TABLET PO ×2 (05:42→16:08)
[2023-11-07 08:00] VITALS: BP 103/75; PULSE 98; RESP 18; TEMP 36.7; O2SAT 96
[2023-11-07] MEDS: ARIPiprazole 20 MG TABLET PO (08:26)
[2023-11-07] MEDS: Nystatin Oral Susp 500,000 UNIT/5 ML ORAL.SUSP 500000 UNIT PO ×3 (08:26→20:20)
--- NOTE | 2023-11-07 09:58 | P.PNPSI_ITS ---
Subjective Subjective Date of Service: 11/07/23 Reason For Visit: Schizoaffective disorder, unspecified type Subjective Notes: Conditional Voluntary Interim History: The nursing staff reported the patient had been flat, very isolative in his bed refused medications in the evening. He is only drinking ensure. Slept well last night. On interview the patient remains psychotic. Vital signs had been stable today in the morning. Mental Status Exam Mental Status Exam Patient Appearance: Unkempt Patient Orientation: Person Level of Consciousness: Awake Patient Behavior: Guarded and Passive Mood Description: Withdrawn Affect Description: Constricted Patient Cognition Impaired: Yes Ability to Follow Directions: Good Speech Pattern: Clear Hallucinations: None Delusions: Not Present Thought Process: Illogical and Distracted Thought Content: positive for [place] and positive for Thought Blocking Judgement: Poor Diagnostics Vital Signs (24Hr): Vital Signs - 24 hr 11/06/23 20:00 11/07/23 08:00 Temperature 99.1 F 98.0 F Pulse Rate 78 98 Respiratory Rate 18 18 Blood Pressure 95/59 L 103/75 Pulse Oximetry 95 96 Oxygen Delivery Method Room Air Room Air BMI result Body Mass Index 17.2 Medications Medications Current Medications Acetaminophen (Acetaminophen 325 Mg Tablet) 650 mg PO Q6H PRN PRN Reason: Headache/Pain Mild Scale (1-3) Last Admin: 11/04/23 20:55 Dose: 650 mg Al Hydroxide/Mg Hydroxide (Magnesium Hydrox/Alum Hydrox 30 Ml Oral.Susp) 30 ml PO Q6H PRN PRN Reason: Heartburn/Nausea Last Admin: 10/31/23 23:58 Dose: 30 ml Aripiprazole (Aripiprazole 20 Mg Tablet) 20 mg PO DAILY [facility] Last Admin: 11/07/23 08:26 Dose: 20 mg Famotidine (Famotidine 20 Mg Tablet) 20 mg PO BID@0630,1630 [facility] Last Admin: 11/07/23 05:42 Dose: 20 mg Magnesium Hydroxide (Milk Of Magnesia 30 Ml Oral.Susp) 30 ml PO DAILY PRN PRN Reason: Constipation Mirtazapine (Mirtazapine 15 Mg Tablet) 15 mg PO BEDTIME [facility] Last Admin: 11/06/23 21:04 Dose: Not Given Nystatin (Nystatin Oral Susp 500,000 Unit/5 Ml Oral.Susp) 500,000 unit PO TID [facility] Last Admin: 11/07/23 08:26 Dose: 500,000 unit Paliperidone (Paliperidone Er 3 Mg Tab.Er.24) 3 mg PO BEDTIME [facility] Last Admin: 11/06/23 21:04 Dose: Not Given Senna (Sennosides 8.6 Mg Tablet) 8.6 mg PO BEDTIME [facility] Last Admin: 11/06/23 21:04 Dose: Not Given Trazodone HCl (Trazodone Hcl 50 Mg Tablet) 50 mg PO BEDTIME PRN PRN Reason: Insomnia Allergies Allergies Allergy/AdvReac Type Severity Reaction Status Date / Time omeprazole Allergy Unknown Verified 10/30/23 00:09 Assessment & Plan Assessment & Plan (1) Schizophrenia: Status: Acute Code(s): F20.9 - Schizophrenia, unspecified Plan Mr. Adame is 63 y/o male with hx schizophrenia who [facility] due to minimal oral intake, paranoid delusions, causing severe failure to thrive since 04/2023. He had to be sent out for medical treatment several times due to dehydration, cholelithiasis, ultimately, [facility] as they reported pt needs more medical support. He has been at [facility] since 09/06/2023 pending placement in psychiatric admission. records indicate that pt had minimal response to medications such as olanzapine, abilify, seroquel. He even had clozaril trial but had a marked change in mentation that resolved once this medication was discontinued. Pt also noted to have dysphasia and on chopped food. Will order ST to assess food consistency need. Will also order nutritional consult. Pt already declined medications, food, labs without showing understanding of potential medical conditions. Consider ECT,going for guardianship as pt not able to care for himself. Will also add DVT prophylaxis. PLAN 11/02 did not eat or drink anything. minimally eating or drinking. 11/03 he had 3 ensures today, however, dark urine, UA and CMP ordered. BP low but stable. 11/05 continue same treatment 11/06 continue same treatment Reason for continued inpatient stay Substantial Risk for: inability to function, rapid decompensation and med/psych decompensation Time Spent With Patient Time: Total time managing care of this patient today __20__ minutes.
[2023-11-07 20:00] VITALS: BP 100/62; PULSE 83; RESP 18; TEMP 36.4; O2SAT 94
[2023-11-08 08:33] VITALS: BP 84/51; PULSE 70; RESP 17; TEMP 37.1; O2SAT 96
[2023-11-08] MEDS: Nystatin Oral Susp 500,000 UNIT/5 ML ORAL.SUSP 500000 UNIT PO ×2 (08:36→15:05)
--- NOTE | 2023-11-08 14:52 | MHC.CLN ---
F/U DIET=REGULAR. CONTINUES WITH VERY POOR INTAKE OF FOOD. HX POOR INTAKE OF FOOD PRIOR TO ADMISSION. ACCEPTS ENSURE SUPPLEMENT. ENSURE TID ORDERED (1050 KCALS, 60 G PROTEIN). IF CONSUMED 100% PROVIDES APPROX 60% OF ESTIMATED ENERGY NEEDS. ENCOURAGE ADDITIONAL SUPPLEMENTS FROM UNIT KITCHEN. FOLLOW FOR PO INTAKE. ENCOURAGE INTAKE ABLE.
--- NOTE | 2023-11-08 15:32 | P.PNPSI_ITS ---
Subjective Subjective Date of Service: 11/08/23 Reason For Visit: Schizoaffective disorder, unspecified type Subjective Notes: Conditional Voluntary Interim History: Pt slept most of the night. He declines all medications. He is drinking mostly ensure- today he has had 5 of them. Minimally engaging with anyone here on the unit. He denies SI/HI. No able to care for himself. Review of Systems Review of Systems General: No fevers, malaise, unintentional weight loss HEENT: No blurred vision, diplopia. No sore throat, nasal congestion, rhinorrhea, sinus pain, ear pain Cardiovascular: No chest pain, palpitations, or leg edema Respiratory: No shortness of breath, wheezing, cough GI: No abdominal pain, nausea, vomiting, diarrhea, constipation, melena, hematochezia : No dysuria, hematuria, increased urinary frequency, decreased urinary output MSK: No myalgia, back pain Neuro: No headaches, weakness, paresthesias Skin: No rashes or lesions Pt affect flat, unengaged in interview. Question reliability of ros Mental Status Exam Mental Status Exam Narrative: Appearance: cachectic, malnourished, in NAD Behavior: guarded, not engaging in any conversation Psychomotor: no agitation or retardation noted Speech: mostly clear, regular rate, minimally spontaneous TP: wanting to rest TC: tired, not wanting to take any medications Mood: tired Affect: constricted SI: denies HI:denies VH/AH: appears internally preoccupied Delusions: suspicious about medications/treatment Insight/judgment: impaired x 2. memory/cog: alert, not able to assess orientation as pt declines to answer questions. Diagnostics Vital Signs (24Hr): Vital Signs - 24 hr 11/07/23 20:00 11/08/23 08:33 Temperature 97.6 F 98.8 F Pulse Rate 83 70 Respiratory Rate 18 17 Blood Pressure 100/62 84/51 L Pulse Oximetry 94 96 Oxygen Delivery Method Room Air Room Air BMI result Body Mass Index 17.2 Medications Medications Current Medications Acetaminophen (Acetaminophen 325 Mg Tablet) 650 mg PO Q6H PRN PRN Reason: Headache/Pain Mild Scale (1-3) Last Admin: 11/04/23 20:55 Dose: 650 mg Al Hydroxide/Mg Hydroxide (Magnesium Hydrox/Alum Hydrox 30 Ml Oral.Susp) 30 ml PO Q6H PRN PRN Reason: Heartburn/Nausea Last Admin: 10/31/23 23:58 Dose: 30 ml Aripiprazole (Aripiprazole 20 Mg Tablet) 20 mg PO DAILY [facility] Last Admin: 11/08/23 08:37 Dose: Not Given Famotidine (Famotidine 20 Mg Tablet) 20 mg PO BID@0630,1630 [facility] Last Admin: 11/08/23 05:29 Dose: Not Given Magnesium Hydroxide (Milk Of Magnesia 30 Ml Oral.Susp) 30 ml PO DAILY PRN PRN Reason: Constipation Mirtazapine (Mirtazapine 15 Mg Tablet) 15 mg PO BEDTIME [facility] Last Admin: 11/07/23 20:22 Dose: Not Given Nystatin (Nystatin Oral Susp 500,000 Unit/5 Ml Oral.Susp) 500,000 unit PO TID [facility] Last Admin: 11/08/23 15:05 Dose: 500,000 unit Paliperidone (Paliperidone Er 3 Mg Tab.Er.24) 3 mg PO BEDTIME [facility] Last Admin: 11/07/23 20:22 Dose: Not Given Senna (Sennosides 8.6 Mg Tablet) 8.6 mg PO BEDTIME [facility] Last Admin: 11/07/23 20:22 Dose: Not Given Trazodone HCl (Trazodone Hcl 50 Mg Tablet) 50 mg PO BEDTIME PRN PRN Reason: Insomnia Allergies Allergies Allergy/AdvReac Type Severity Reaction Status Date / Time omeprazole Allergy Unknown Verified 10/30/23 00:09 Assessment & Plan Assessment & Plan (1) Schizophrenia: Status: Acute Code(s): F20.9 - Schizophrenia, unspecified Plan Mr. Adame is 63 y/o male with hx schizophrenia who [facility] due to minimal oral intake, paranoid delusions, causing severe failure to thrive since 04/2023. He had to be sent out for medical treatment several times due to dehydration, cholelithiasis, ultimately, [facility] as they reported pt needs more medical support. He has been at [facility] since 09/06/2023 pending placement in psychiatric admission. records indicate that pt had minimal response to medications such as olanzapine, abilify, seroquel. He even had clozaril trial but had a marked change in mentation that resolved once this medication was discontinued. Pt also noted to have dysphasia and on chopped food. Will order ST to assess food consistency need. Will also order nutritional consult. Pt already declined medications, food, labs without showing understanding of potential medical conditions. Consider ECT,going for guardianship as pt not able to care for himself. Will also add DVT prophylaxis. PLAN 11/02 did not eat or drink anything. minimally eating or drinking. 11/03 he had 3 ensures today, however, dark urine, UA and CMP ordered. BP low but stable. 11/05 continue same treatment 11/06 continue same treatment 11/07 continue tx. pt refuses medication, appears internally preoccupied, catatonic like features, may consider ECT as it may have significant impact on overall functioning if his presentation is not mostly negative symptoms of schizophrenia. Reason for continued inpatient stay Substantial Risk for: inability to function Time Spent With Patient Time: Total time managing care of this patient today ____ minutes.
[2023-11-08] MEDS: Famotidine 20 MG TABLET PO (16:07)
[2023-11-08 20:00] VITALS: BP 100/51; PULSE 70; RESP 16; TEMP 36.1; O2SAT 98
[2023-11-08] MEDS: Acetaminophen 325 MG TABLET 650 MG PO (20:14)
[2023-11-09] MEDS: Famotidine 20 MG TABLET PO (05:45)
[2023-11-09] MEDS: Nystatin Oral Susp 500,000 UNIT/5 ML ORAL.SUSP 500000 UNIT PO ×2 (08:37→20:58)
[2023-11-09 08:41] VITALS: BP 92/68; PULSE 75; RESP 17; TEMP 36.4; O2SAT 97
--- NOTE | 2023-11-09 10:40 | P.PNPSI_ITS ---
Subjective Subjective Date of Service: 11/09/23 Reason For Visit: Schizoaffective disorder, unspecified type Subjective Notes: Conditional Voluntary Interim History: Pt slept most of the night.He continues to decline medications. He is drinking mostly ensure. No aggression, unable to care for himself. Appears internally preoccupied and some catatonic like symptoms- negativism, decrease spontaneity of speech, Review of Systems Review of Systems General: No fevers, malaise, unintentional weight loss HEENT: No blurred vision, diplopia. No sore throat, nasal congestion, rhinorrhea, sinus pain, ear pain Cardiovascular: No chest pain, palpitations, or leg edema Respiratory: No shortness of breath, wheezing, cough GI: No abdominal pain, nausea, vomiting, diarrhea, constipation, melena, hematochezia : No dysuria, hematuria, increased urinary frequency, decreased urinary output MSK: No myalgia, back pain Neuro: No headaches, weakness, paresthesias Skin: No rashes or lesions Pt affect flat, unengaged in interview. Question reliability of ros Mental Status Exam Mental Status Exam Narrative: Appearance: cachectic, malnourished, in NAD Behavior: guarded, not engaging in any conversation Psychomotor: no agitation or retardation noted Speech: mostly clear, regular rate, minimally spontaneous TP: wanting to rest TC: tired, not wanting to take any medications Mood: tired Affect: constricted SI: denies HI:denies VH/AH: appears internally preoccupied Delusions: suspicious about medications/treatment Insight/judgment: impaired x 2. memory/cog: alert, not able to assess orientation as pt declines to answer questions. Diagnostics Vital Signs (24Hr): Vital Signs - 24 hr 11/08/23 20:00 11/09/23 08:41 Temperature 96.9 F 97.6 F Pulse Rate 70 75 Respiratory Rate 16 17 Blood Pressure 100/51 L 92/68 Pulse Oximetry 98 97 Oxygen Delivery Method Room Air Room Air BMI result Body Mass Index 17.2 Medications Medications Current Medications Acetaminophen (Acetaminophen 325 Mg Tablet) 650 mg PO Q6H PRN PRN Reason: Headache/Pain Mild Scale (1-3) Last Admin: 11/08/23 20:14 Dose: 650 mg Al Hydroxide/Mg Hydroxide (Magnesium Hydrox/Alum Hydrox 30 Ml Oral.Susp) 30 ml PO Q6H PRN PRN Reason: Heartburn/Nausea Last Admin: 10/31/23 23:58 Dose: 30 ml Aripiprazole (Aripiprazole 20 Mg Tablet) 20 mg PO DAILY [facility] Last Admin: 11/09/23 09:41 Dose: Not Given Famotidine (Famotidine 20 Mg Tablet) 20 mg PO BID@0630,1630 [facility] Last Admin: 11/09/23 05:45 Dose: 20 mg Magnesium Hydroxide (Milk Of Magnesia 30 Ml Oral.Susp) 30 ml PO DAILY PRN PRN Reason: Constipation Mirtazapine (Mirtazapine 15 Mg Tablet) 15 mg PO BEDTIME [facility] Last Admin: 11/08/23 20:12 Dose: Not Given Nystatin (Nystatin Oral Susp 500,000 Unit/5 Ml Oral.Susp) 500,000 unit PO TID [facility] Last Admin: 11/09/23 08:37 Dose: 500,000 unit Paliperidone (Paliperidone Er 3 Mg Tab.Er.24) 3 mg PO BEDTIME [facility] Last Admin: 11/08/23 20:12 Dose: Not Given Senna (Sennosides 8.6 Mg Tablet) 8.6 mg PO BEDTIME [facility] Last Admin: 11/08/23 20:12 Dose: Not Given Trazodone HCl (Trazodone Hcl 50 Mg Tablet) 50 mg PO BEDTIME PRN PRN Reason: Insomnia Allergies Allergies Allergy/AdvReac Type Severity Reaction Status Date / Time omeprazole Allergy Unknown Verified 10/30/23 00:09 Assessment & Plan Assessment & Plan (1) Schizophrenia: Status: Acute Code(s): F20.9 - Schizophrenia, unspecified Plan Mr. Adame is 63 y/o male with hx schizophrenia who [facility] due to minimal oral intake, paranoid delusions, causing severe failure to thrive since 04/2023. He had to be sent out for medical treatment several times due to dehydration, cholelithiasis, ultimately, [facility] as they reported pt needs more medical support. He has been at [facility] since 09/06/2023 pending placement in psychiatric admission. records indicate that pt had minimal response to medications such as olanzapine, abilify, seroquel. He even had clozaril trial but had a marked change in mentation that resolved once this medication was discontinued. Pt also noted to have dysphasia and on chopped food. Will order ST to assess food consistency need. Will also order nutritional consult. Pt already declined medications, food, labs without showing understanding of potential medical conditions. Consider ECT,going for guardianship as pt not able to care for himself. Will also add DVT prophylaxis. PLAN 11/02 did not eat or drink anything. minimally eating or drinking. 11/03 he had 3 ensures today, however, dark urine, UA and CMP ordered. BP low but stable. 11/05 continue same treatment 11/06 continue same treatment 11/07 continue tx. pt refuses medication, appears internally preoccupied, catatonic like features, may consider ECT as it may have significant impact on overall functioning if his presentation is not mostly negative symptoms of schizophrenia. 11/08 may consider revoking CV, consider ECT. [facility] had filed for guardianship. Reason for continued inpatient stay Substantial Risk for: inability to function Time Spent With Patient Time: Total time managing care of this patient today ____ minutes.
[2023-11-09 20:00] VITALS: BP 109/72; PULSE 94; RESP 16; TEMP 37.3; O2SAT 98
[2023-11-09] MEDS: Acetaminophen 325 MG TABLET 650 MG PO (21:01)
[2023-11-10] MEDS: Famotidine 20 MG TABLET PO ×2 (06:13→16:51)
[2023-11-10 08:00] VITALS: BP 100/71; PULSE 80; RESP 18; TEMP 37.1; O2SAT 95
[2023-11-10] MEDS: Nystatin Oral Susp 500,000 UNIT/5 ML ORAL.SUSP 500000 UNIT PO ×3 (09:03→20:41)
--- NOTE | 2023-11-10 13:26 | PC.NURSE ---
Patient refused Abilify. He did get out of bed and come to the dining area where he took several bites of a dry ham sandwich and ate chips along with his Ensure.
[2023-11-10] MEDS: Paliperidone ER 3 MG TAB.ER.24 PO (20:41)
[2023-11-10] MEDS: Mirtazapine 15 MG TABLET PO (20:41)
[2023-11-10] MEDS: Sennosides 8.6 MG TABLET PO (20:41)
[2023-11-10 20:50] VITALS: BP 99/67; PULSE 93; RESP 16; TEMP 36.8; O2SAT 96
[2023-11-11] MEDS: Famotidine 20 MG TABLET PO ×2 (05:45→16:05)
[2023-11-11 07:00] VITALS: BMI 17.6
[2023-11-11 08:00] VITALS: BP 86/56; PULSE 106; RESP 16; TEMP 36.5; O2SAT 95
[2023-11-11 12:06] LABS: MANUAL DIFF FLAG NO
[2023-11-11 12:12] LABS: Hematocrit 37.9 % (42.0-52.0); Hemoglobin 13.7 g/dl (14.0-18.0); Imm Gran Abs Auto 0.01 X10*3/uL (0.00-0.03); Imm Gran Pct Auto 0.2 % (0.0-0.4); Lymphocytes Absolute Auto 1.2 X10*3/uL (1.2-4.9); Lymphocytes Percent Auto 22.9 % (20-40); Mean Corpuscular HGB Conc 36.1 g/dl (31.0-36.0); Mean Corpuscular Hemoglobin 35.3 pg (27.0-33.0); Mean Corpuscular Volume 97.7 fL (80.0-98.0); Mean Platelet Volume 10.9 fL (9.4-12.4); Monocytes Absolute Auto 0.7 X10*3/uL (0.1-1.2); Monocytes Percent Auto 12.8 % (2-11); Neutrophils Absolute Auto 3.5 x10*3/uL (2.0-8.3); Neutrophils Percent Auto 64.1 % (45-73); Platelet Count 162 X10*3/uL (160-400); Red Blood Count 3.88 X10*6/uL (4.60-5.80); Red Cell Distribution Width 13.6 % (11.0-16.0); White Blood Count 5.4 X10*3/uL (4.8-10.8)
[2023-11-11 12:16] LABS: Potassium 4.2 mmol/L (3.3-5.1)
[2023-11-11 12:24] LABS: Alanine Aminotransferase 19 U/L (0-40); Albumin Level 3.4 g/dL (3.5-5.0); Alkaline Phosphatase 65 U/L (39-117); Anion Gap 13 (12-20); Aspartate Amino Transferase 15 U/L (5-37); Bilirubin Total 1.6 mg/dL (0.0-1.0); Blood Urea Nitrogen 35 mg/dL (9-16); Calcium 9.5 mg/dL (8.4-10.2); Carbon Dioxide 23 mmol/L (22-29); Chloride 105 mmol/L (96-108); Creatinine Clr Calc Pharmacy 67.8; Estimated Glomerular Filt Rate > 60; Glucose Random 88 mg/dL (60-115); Potassium 4.3 mmol/L (3.3-5.1); Sodium 137 mmol/L (135-145); Total Protein 6.6 g/dL (6.5-8.0)
--- NOTE | 2023-11-11 12:49 | PC.NURSE ---
Provider retracted CV. Paperwork filed for section 7&8.
[2023-11-11 12:58] LABS: Phosphorus 3.9 mg/dL (2.7-4.5)
[2023-11-11] MEDS: Nystatin Oral Susp 500,000 UNIT/5 ML ORAL.SUSP 500000 UNIT PO (16:05)
[2023-11-11 20:00] VITALS: BP 98/53; PULSE 99; RESP 18; TEMP 37.1; O2SAT 96
--- NOTE | 2023-11-11 21:08 | P.PNPSI_ITS ---
Subjective Subjective Date of Service: 11/11/23 Reason For Visit: Schizoaffective disorder, unspecified type Subjective Notes: Section 7 and Conditional Voluntary Interim History: Pt slept most of the night.Pt informed that CV will be revoked as he is refusing medications, not eating. He reports is his God given right. He accepts at times sealed containers, drinking inconsistently ensure. His BP decreasing with rebound tachycardia. Pt did allow labs today. Increase BUN due to dyhadration. LFT wnl. no electrolytes abnormalities. Appears internally preoccupied and some catatonic like symptoms- negativism, decrease spontaneity of speech, Review of Systems Review of Systems General: No fevers, malaise, unintentional weight loss HEENT: No blurred vision, diplopia. No sore throat, nasal congestion, rhinorrhea, sinus pain, ear pain Cardiovascular: No chest pain, palpitations, or leg edema Respiratory: No shortness of breath, wheezing, cough GI: No abdominal pain, nausea, vomiting, diarrhea, constipation, melena, hematochezia : No dysuria, hematuria, increased urinary frequency, decreased urinary output MSK: No myalgia, back pain Neuro: No headaches, weakness, paresthesias Skin: No rashes or lesions Pt affect flat, unengaged in interview. Question reliability of ros Mental Status Exam Mental Status Exam Narrative: Appearance: cachectic, malnourished, in NAD Behavior: guarded, not engaging in any conversation Psychomotor: no agitation or retardation noted Speech: mostly clear, regular rate, minimally spontaneous TP: wanting to rest TC: tired, not wanting to take any medications Mood: tired Affect: constricted SI: denies HI:denies VH/AH: appears internally preoccupied Delusions: suspicious about medications/treatment Insight/judgment: impaired x 2. memory/cog: alert, not able to assess orientation as pt declines to answer questions. Diagnostics Vital Signs (24Hr): Vital Signs - 24 hr 11/11/23 08:00 Temperature 97.7 F Pulse Rate 106 H Respiratory Rate 16 Blood Pressure 86/56 L Pulse Oximetry 95 Oxygen Delivery Method Room Air BMI result Body Mass Index 17.6 Labs 11/11/23 11:58 11/11/23 11:58 Labs: Laboratory Results - last 48 hr 11/11/23 11/11/23 11:58 11:58 WBC 5.4 RBC 3.88 L Hgb 13.7 L Hct 37.9 L MCV 97.7 MCH 35.3 H MCHC 36.1 H RDW 13.6 Plt Count 162 MPV 10.9 Immature Gran % (Auto) 0.2 Neut % (Auto) 64.1 Lymph % (Auto) 22.9 [place] % (Auto) 12.8 H Eos % (Auto) 0.0 Baso % (Auto) 0.0 Lymph # (Auto) 1.2 [place] # (Auto) 0.7 Eos # (Auto) 0.0 Baso # (Auto) 0.0 Abs Immat Gran (auto) 0.01 Absolute Neuts (auto) 3.5 Absolute Nucleated RBC 0.000 Nucleated RBC % (auto) 0.0 Sodium 137 Potassium 4.3 4.2 Chloride 105 Carbon Dioxide 23 Anion Gap 13 BUN 35 H Creatinine 0.79 Estim Creat Clear Calc 67.8 Estimated GFR > 60 Random Glucose 88 Calcium 9.5 Phosphorus 3.9 Total Bilirubin 1.6 H AST 15 ALT 19 Alkaline Phosphatase 65 Total Protein 6.6 Albumin 3.4 L Medications Medications Current Medications Acetaminophen (Acetaminophen 325 Mg Tablet) 650 mg PO Q6H PRN PRN Reason: Headache/Pain Mild Scale (1-3) Last Admin: 11/09/23 21:01 Dose: 650 mg Al Hydroxide/Mg Hydroxide (Magnesium Hydrox/Alum Hydrox 30 Ml Oral.Susp) 30 ml PO Q6H PRN PRN Reason: Heartburn/Nausea Last Admin: 10/31/23 23:58 Dose: 30 ml Aripiprazole (Aripiprazole 20 Mg Tablet) 20 mg PO DAILY [facility] Last Admin: 11/11/23 10:46 Dose: Not Given Famotidine (Famotidine 20 Mg Tablet) 20 mg PO BID@0630,1630 [facility] Last Admin: 11/11/23 16:05 Dose: 20 mg Magnesium Hydroxide (Milk Of Magnesia 30 Ml Oral.Susp) 30 ml PO DAILY PRN PRN Reason: Constipation Mirtazapine (Mirtazapine 15 Mg Tablet) 15 mg PO BEDTIME [facility] Last Admin: 11/11/23 21:05 Dose: Not Given Nystatin (Nystatin Oral Susp 500,000 Unit/5 Ml Oral.Susp) 500,000 unit PO TID [facility] Last Admin: 11/11/23 21:06 Dose: Not Given Paliperidone (Paliperidone Er 3 Mg Tab.Er.24) 3 mg PO BEDTIME [facility] Last Admin: 11/11/23 21:06 Dose: Not Given Senna (Sennosides 8.6 Mg Tablet) 8.6 mg PO BEDTIME [facility] Last Admin: 11/11/23 21:06 Dose: Not Given Trazodone HCl (Trazodone Hcl 50 Mg Tablet) 50 mg PO BEDTIME PRN PRN Reason: Insomnia Allergies Allergies Allergy/AdvReac Type Severity Reaction Status Date / Time omeprazole Allergy Unknown Verified 10/30/23 00:09 Assessment & Plan Assessment & Plan (1) Schizophrenia: Status: Acute Code(s): F20.9 - Schizophrenia, unspecified Plan Mr. Adame is 63 y/o male with hx schizophrenia who [facility] due to minimal oral intake, paranoid delusions, causing severe failure to thrive since 04/2023. He had to be sent out for medical treatment several times due to dehydration, cholelithiasis, ultimately, [facility] as they reported pt needs more medical support. He has been at [facility] since 09/06/2023 pending placement in psychiatric admission. records indicate that pt had minimal response to medications such as olanzapine, abilify, seroquel. He even had clozaril trial but had a marked change in mentation that resolved once this medication was discontinued. Pt also noted to have dysphasia and on chopped food. Will order ST to assess food consistency need. Will also order nutritional consult. Pt already declined medications, food, labs without showing understanding of potential medical conditions. Consider ECT,going for guardianship as pt not able to care for himself. Will also add DVT prophylaxis. PLAN 11/02 did not eat or drink anything. minimally eating or drinking. 11/03 he had 3 ensures today, however, dark urine, UA and CMP ordered. BP low but stable. 11/05 continue same treatment 11/06 continue same treatment 11/07 continue tx. pt refuses medication, appears internally preoccupied, catatonic like features, may consider ECT as it may have significant impact on overall functioning if his presentation is not mostly negative symptoms of schizophrenia. 11/08 may consider revoking CV, consider ECT. [facility] had filed for guardianship. 11/09 cv revoke, sect 01/09 filed. Reason for continued inpatient stay Substantial Risk for: inability to function Time Spent With Patient Time: Total time managing care of this patient today ____ minutes.
[2023-11-11 22:08] LABS: Thyroid Stimulating Hormone 0.22 uIU/mL (0.32-4.0)
[2023-11-12] MEDS: Famotidine 20 MG TABLET PO ×2 (05:48→16:28)
--- NOTE | 2023-11-12 06:31 | PC.NURSE ---
Patient refused all HS meds, took his morning pepcid. Drank about 120ml of ensure through the shift.
[2023-11-12 08:00] VITALS: BP 118/86; PULSE 104; RESP 16; TEMP 36.6; O2SAT 98
[2023-11-12] MEDS: ARIPiprazole 20 MG TABLET PO (09:24)
[2023-11-12] MEDS: Nystatin Oral Susp 500,000 UNIT/5 ML ORAL.SUSP 500000 UNIT PO ×3 (09:24→21:09)
--- NOTE | 2023-11-12 10:51 | P.PNPSI_ITS ---
Subjective Subjective Date of Service: 11/12/23 Reason For Visit: Schizoaffective disorder, unspecified type Subjective Notes: Conditional Voluntary Interim History: Pt slept most of the night. Pt mostly in bed. He has had episode of loose stools. given loperamide awaiting results. Labs showed increase BUN s/s to dehydration. Encouraged to have ensure as recommended by curriculum writer. In bed, still refusing medications. Review of Systems Review of Systems General: No fevers, malaise, unintentional weight loss HEENT: No blurred vision, diplopia. No sore throat, nasal congestion, rhinorrhea, sinus pain, ear pain Cardiovascular: No chest pain, palpitations, or leg edema Respiratory: No shortness of breath, wheezing, cough GI: No abdominal pain, nausea, vomiting, diarrhea, constipation, melena, hematochezia : No dysuria, hematuria, increased urinary frequency, decreased urinary output MSK: No myalgia, back pain Neuro: No headaches, weakness, paresthesias Skin: No rashes or lesions Pt affect flat, unengaged in interview. Question reliability of ros Mental Status Exam Mental Status Exam Narrative: Appearance: cachectic, malnourished, in NAD Behavior: guarded, not engaging in any conversation Psychomotor: no agitation or retardation noted Speech: mostly clear, regular rate, minimally spontaneous TP: wanting to rest TC: tired, not wanting to take any medications Mood: tired Affect: constricted SI: denies HI:denies VH/AH: appears internally preoccupied Delusions: suspicious about medications/treatment Insight/judgment: impaired x 2. memory/cog: alert, not able to assess orientation as pt declines to answer questions. Diagnostics Vital Signs (24Hr): Vital Signs - 24 hr 11/11/23 20:00 11/12/23 08:00 Temperature 98.8 F 97.8 F Pulse Rate 99 104 H Respiratory Rate 18 16 Blood Pressure 98/53 L 118/86 Pulse Oximetry 96 98 Oxygen Delivery Method Room Air Room Air BMI result Body Mass Index 17.6 Labs 11/11/23 11:58 11/11/23 11:58 Labs: Laboratory Results - last 48 hr 11/11/23 11/11/23 11:58 11:58 WBC 5.4 RBC 3.88 L Hgb 13.7 L Hct 37.9 L MCV 97.7 MCH 35.3 H MCHC 36.1 H RDW 13.6 Plt Count 162 MPV 10.9 Immature Gran % (Auto) 0.2 Neut % (Auto) 64.1 Lymph % (Auto) 22.9 [place] % (Auto) 12.8 H Eos % (Auto) 0.0 Baso % (Auto) 0.0 Lymph # (Auto) 1.2 [place] # (Auto) 0.7 Eos # (Auto) 0.0 Baso # (Auto) 0.0 Abs Immat Gran (auto) 0.01 Absolute Neuts (auto) 3.5 Absolute Nucleated RBC 0.000 Nucleated RBC % (auto) 0.0 Sodium 137 Potassium 4.3 4.2 Chloride 105 Carbon Dioxide 23 Anion Gap 13 BUN 35 H Creatinine 0.79 Estim Creat Clear Calc 67.8 Estimated GFR > 60 Random Glucose 88 Calcium 9.5 Phosphorus 3.9 Total Bilirubin 1.6 H AST 15 ALT 19 Alkaline Phosphatase 65 Total Protein 6.6 Albumin 3.4 L TSH 0.22 L Medications Medications Current Medications Acetaminophen (Acetaminophen 325 Mg Tablet) 650 mg PO Q6H PRN PRN Reason: Headache/Pain Mild Scale (1-3) Last Admin: 11/09/23 21:01 Dose: 650 mg Al Hydroxide/Mg Hydroxide (Magnesium Hydrox/Alum Hydrox 30 Ml Oral.Susp) 30 ml PO Q6H PRN PRN Reason: Heartburn/Nausea Last Admin: 10/31/23 23:58 Dose: 30 ml Aripiprazole (Aripiprazole 20 Mg Tablet) 20 mg PO DAILY [facility] Last Admin: 11/12/23 09:24 Dose: 20 mg Famotidine (Famotidine 20 Mg Tablet) 20 mg PO BID@0630,1630 [facility] Last Admin: 11/12/23 05:48 Dose: 20 mg Magnesium Hydroxide (Milk Of Magnesia 30 Ml Oral.Susp) 30 ml PO DAILY PRN PRN Reason: Constipation Mirtazapine (Mirtazapine 15 Mg Tablet) 15 mg PO BEDTIME [facility] Last Admin: 11/11/23 21:05 Dose: Not Given Nystatin (Nystatin Oral Susp 500,000 Unit/5 Ml Oral.Susp) 500,000 unit PO TID [facility] Last Admin: 11/12/23 09:24 Dose: 500,000 unit Paliperidone (Paliperidone Er 3 Mg Tab.Er.24) 3 mg PO BEDTIME [facility] Last Admin: 11/11/23 21:06 Dose: Not Given Senna (Sennosides 8.6 Mg Tablet) 8.6 mg PO BEDTIME [facility] Last Admin: 11/11/23 21:06 Dose: Not Given Trazodone HCl (Trazodone Hcl 50 Mg Tablet) 50 mg PO BEDTIME PRN PRN Reason: Insomnia Allergies Allergies Allergy/AdvReac Type Severity Reaction Status Date / Time omeprazole Allergy Unknown Verified 10/30/23 00:09 Assessment & Plan Assessment & Plan (1) Schizophrenia: Status: Acute Code(s): F20.9 - Schizophrenia, unspecified Plan Mr. Adame is 63 y/o male with hx schizophrenia who [facility] due to minimal oral intake, paranoid delusions, causing severe failure to thrive since 04/2023. He had to be sent out for medical treatment several times due to dehydration, cholelithiasis, ultimately, [facility] as they reported pt needs more medical support. He has been at [facility] since 09/06/2023 pending placement in psychiatric admission. records indicate that pt had minimal response to medications such as olanzapine, abilify, seroquel. He even had clozaril trial but had a marked change in mentation that resolved once this medication was discontinued. Pt also noted to have dysphasia and on chopped food. Will order ST to assess food consistency need. Will also order nutritional consult. Pt already declined medications, food, labs without showing understanding of potential medical conditions. Consider ECT,going for guardianship as pt not able to care for himself. Will also add DVT prophylaxis. PLAN 11/02 did not eat or drink anything. minimally eating or drinking. 11/03 he had 3 ensures today, however, dark urine, UA and CMP ordered. BP low but stable. 11/05 continue same treatment 11/06 continue same treatment 11/07 continue tx. pt refuses medication, appears internally preoccupied, catatonic like features, may consider ECT as it may have significant impact on overall functioning if his presentation is not mostly negative symptoms of schizophrenia. 11/08 may consider revoking CV, consider ECT. [facility] had filed for guardianship. 11/09 cv revoke, sect 01/09 filed. 11/10 continue tx. 11/11 continue tx. Reason for continued inpatient stay Substantial Risk for: inability to function Time Spent With Patient Time: Total time managing care of this patient today ____ minutes.
[2023-11-12] MEDS: Loperamide HCl 2 MG CAPSULE PO (11:09)
--- NOTE | 2023-11-12 12:34 | MHC.CLN ---
F/U DIET=REGULAR. CONTINUES WITH VERY POOR INTAKE OF FOOD. ACCEPTS ENSURE SUPPLEMENT. ENSURE TID ORDERED (1050 KCALS, 60 G PROTEIN). IF CONSUMED 100% PROVIDES APPROX 60% OF ESTIMATED ENERGY NEEDS. ENCOURAGE ADDITIONAL SUPPLEMENTS FROM UNIT KITCHEN. FOLLOW FOR PO INTAKE. ENCOURAGE INTAKE ABLE. RD TO FOLLOW UP WEEKLY.
--- NOTE | 2023-11-12 14:21 | PC.NURSE ---
MEdicated with Immodium for c/o loose stool x2 at 1109. Effect pending.
[2023-11-12 20:00] VITALS: BP 100/54; PULSE 99; RESP 16; TEMP 37.3; O2SAT 95
[2023-11-12] MEDS: Mirtazapine 15 MG TABLET PO (21:09)
[2023-11-12] MEDS: Paliperidone ER 3 MG TAB.ER.24 PO (21:09)
[2023-11-12] MEDS: Sennosides 8.6 MG TABLET PO (21:09)
[2023-11-13] MEDS: Famotidine 20 MG TABLET PO ×2 (06:10→15:34)
[2023-11-13 08:36] VITALS: BP 93/67; PULSE 110; RESP 17; TEMP 36.4; O2SAT 96
[2023-11-13] MEDS: Nystatin Oral Susp 500,000 UNIT/5 ML ORAL.SUSP 500000 UNIT PO ×3 (08:47→21:01)
[2023-11-13] MEDS: ARIPiprazole 20 MG TABLET PO (08:48)
--- NOTE | 2023-11-13 14:37 | P.PNPSI_ITS ---
Subjective Subjective Date of Service: 11/13/23 Reason For Visit: Schizoaffective disorder, unspecified type Subjective Notes: Conditional Voluntary Interim History: Patient reportedly somewhat more engaged somewhat lethargic when seen has taken some antipsychotic not consistently. Reportedly was out of bed more and did eat some solid food. Medication Compliance: Intermittent Review of Systems Weight loss protein deficiency Mental Status Exam Mental Status Exam Narrative: Appearance: cachectic, malnourished, in NAD Behavior: guarded, not engaging in any conversation Psychomotor: no agitation or retardation noted Speech: mostly clear, regular rate, minimally spontaneous TP: wanting to rest TC: tired, not wanting to take any medications Mood: tired Affect: constricted SI: denies HI:denies VH/AH: appears internally preoccupied Delusions: suspicious about medications/treatment Insight/judgment: impaired x 2. memory/cog: alert would not engage Diagnostics Vital Signs (24Hr): Vital Signs - 24 hr 11/12/23 20:00 11/13/23 08:36 Temperature 99.1 F 97.6 F Pulse Rate 99 110 H Respiratory Rate 16 17 Blood Pressure 100/54 L 93/67 Pulse Oximetry 95 96 Oxygen Delivery Method Room Air Room Air BMI result Body Mass Index 17.6 Labs 11/11/23 11:58 11/11/23 11:58 Labs: Laboratory Results - last 48 hr 11/11/23 11:58 TSH 0.22 L Medications Medications Current Medications Acetaminophen (Acetaminophen 325 Mg Tablet) 650 mg PO Q6H PRN PRN Reason: Headache/Pain Mild Scale (1-3) Last Admin: 11/09/23 21:01 Dose: 650 mg Al Hydroxide/Mg Hydroxide (Magnesium Hydrox/Alum Hydrox 30 Ml Oral.Susp) 30 ml PO Q6H PRN PRN Reason: Heartburn/Nausea Last Admin: 10/31/23 23:58 Dose: 30 ml Aripiprazole (Aripiprazole 20 Mg Tablet) 20 mg PO DAILY [facility] Last Admin: 11/13/23 08:48 Dose: 20 mg Famotidine (Famotidine 20 Mg Tablet) 20 mg PO BID@0630,1630 [facility] Last Admin: 11/13/23 06:10 Dose: 20 mg Loperamide HCl (Loperamide Hcl 2 Mg Capsule) 2 mg PO Q4H PRN PRN Reason: loose stools Last Admin: 11/12/23 11:09 Dose: 2 mg Magnesium Hydroxide (Milk Of Magnesia 30 Ml Oral.Susp) 30 ml PO DAILY PRN PRN Reason: Constipation Mirtazapine (Mirtazapine 15 Mg Tablet) 15 mg PO BEDTIME [facility] Last Admin: 11/12/23 21:09 Dose: 15 mg Nystatin (Nystatin Oral Susp 500,000 Unit/5 Ml Oral.Susp) 500,000 unit PO TID [facility] Last Admin: 11/13/23 08:47 Dose: 500,000 unit Paliperidone (Paliperidone Er 3 Mg Tab.Er.24) 3 mg PO BEDTIME YESY Last Admin: 11/12/23 21:09 Dose: 3 mg Senna (Sennosides 8.6 Mg Tablet) 8.6 mg PO BEDTIME [facility] Last Admin: 11/12/23 21:09 Dose: 8.6 mg Trazodone HCl (Trazodone Hcl 50 Mg Tablet) 50 mg PO BEDTIME PRN PRN Reason: Insomnia Allergies Allergies Allergy/AdvReac Type Severity Reaction Status Date / Time omeprazole Allergy Unknown Verified 10/30/23 00:09 Assessment & Plan Assessment & Plan (1) Schizophrenia: Status: Acute Code(s): F20.9 - Schizophrenia, unspecified Plan Mr. Adame is 63 y/o male with hx schizophrenia who has been admitted to [facility] for psychiatric treatment due to minimal oral intake, paranoid delusions, causing severe failure to thrive since 04/2023. He had to be sent out for medical treatment several times due to dehydration, cholelithiasis, ultimately, psychiatric facility [facility] did not take him back as they reported pt needs more medical support. He has been at [facility] since 09/06/2023 pending placement in psychiatric admission. records indicate that pt had minimal response to medications such as olanzapine, abilify, seroquel. He even had clozaril trial but had a marked change in mentation that resolved once this medication was discontinued. Pt also noted to have dysphasia and on chopped food. Will order ST to assess food consistency need. Will also order nutritional consult. Pt already declined medications, food, labs without showing understanding of potential medical conditions. Consider ECT,going for guardianship as pt not able to care for himself. Will also add DVT prophylaxis. PLAN 11/02 did not eat or drink anything. minimally eating or drinking. 11/03 he had 3 ensures today, however, dark urine, UA and CMP ordered. BP low but stable. 11/05 continue same treatment 11/06 continue same treatment 11/07 continue tx. pt refuses medication, appears internally preoccupied, catatonic like features, may consider ECT as it may have significant impact on overall functioning if his presentation is not mostly negative symptoms of schizophrenia. 11/08 may consider revoking CV, consider ECT. [facility] had filed for guardianship. 11/09 cv revoke, sect 01/09 filed. 11/10 continue tx. 11/11 continue tx. 11/13/2023 Would benefit from long-acting injectable consider ECT ck tsh chem profile Reason for continued inpatient stay Substantial Risk for: inability to function, rapid decompensation and med/psych decompensation Time Spent With Patient Time: Total time managing care of this patient today ____ minutes.
[2023-11-13 20:00] VITALS: BP 102/63; PULSE 115; RESP 18; TEMP 36.4; O2SAT 96
[2023-11-13] MEDS: Mirtazapine 15 MG TABLET PO (21:02)
[2023-11-13] MEDS: Sennosides 8.6 MG TABLET PO (21:02)
[2023-11-13] MEDS: Paliperidone ER 3 MG TAB.ER.24 PO (21:02)
[2023-11-13] MEDS: traZODone HCL 50 MG TABLET PO (21:03)
[2023-11-14 08:00] VITALS: BP 91/56; PULSE 87; RESP 16; TEMP 36.6; O2SAT 96
[2023-11-14 10:40] LABS: Alanine Aminotransferase 22 U/L (0-40); Albumin Level 3.4 g/dL (3.5-5.0); Alkaline Phosphatase 70 U/L (39-117); Anion Gap 15 (12-20); Aspartate Amino Transferase 14 U/L (5-37); Bilirubin Total 2.7 mg/dL (0.0-1.0); Blood Urea Nitrogen 42 mg/dL (9-16); Calcium 9.3 mg/dL (8.4-10.2); Carbon Dioxide 24 mmol/L (22-29); Chloride 105 mmol/L (96-108); Creatinine Clr Calc Pharmacy 51.4; Estimated Glomerular Filt Rate > 60; Glucose Fasting 88 mg/dL (60-99); Magnesium 2.3 mg/dL (1.6-2.6); Potassium 4.1 mmol/L (3.3-5.1); Sodium 140 mmol/L (135-145); Total Protein 6.6 g/dL (6.5-8.0)
--- NOTE | 2023-11-14 10:52 | P.PNPSI_ITS ---
Subjective Subjective Date of Service: 11/14/23 Reason For Visit: Schizoaffective disorder, unspecified type Subjective Notes: Conditional Voluntary Healthcare Proxy: No Interim History: Patient became more lethargic late later yesterday and this morning labs revealed high BUN was reviewed with Wendy Delgado and Nancy from the hospitalist service. Decided to lower Abilify temporarily from 2210-5 get in low blood pressure and dehydration. Patient was able to eat and drink lower mirtazapine 7.5 secondary sedation. Patient was given a L of intravenous fluid Medication Compliance: Intermittent Review of Systems Weight loss protein deficiency Mental Status Exam Mental Status Exam Narrative: Appearance: cachectic, malnourished, in NAD Behavior: guarded, not engaging in any conversation Psychomotor: no agitation or retardation noted Speech: mostly clear, regular rate, minimally spontaneous TP: wanting to rest TC: tired, not wanting to take any medications Mood: tired Affect: constricted SI: denies HI:denies VH/AH: appears internally preoccupied Delusions: suspicious about medications/treatment Insight/judgment: impaired x 2. memory/cog: alert would not engage Diagnostics Vital Signs (24Hr): Vital Signs - 24 hr 11/13/23 20:00 11/14/23 08:00 Temperature 97.6 F 98 F Pulse Rate 115 H 87 Respiratory Rate 18 16 Blood Pressure 102/63 91/56 L Pulse Oximetry 96 96 Oxygen Delivery Method Room Air Room Air BMI result Body Mass Index 17.6 Labs 11/14/23 15:20 11/14/23 10:10 Labs: Laboratory Results - last 48 hr 11/14/23 10:10 Sodium 140 Potassium 4.1 Chloride 105 Carbon Dioxide 24 Anion Gap 15 BUN 42 H Creatinine 1.06 Estim Creat Clear Calc 51.4 Estimated GFR > 60 Fasting Glucose 88 Calcium 9.3 Magnesium 2.3 Total Bilirubin 2.7 H AST 14 ALT 22 Alkaline Phosphatase 70 Total Protein 6.6 Albumin 3.4 L Medications Medications Current Medications Acetaminophen (Acetaminophen 325 Mg Tablet) 650 mg PO Q6H PRN PRN Reason: Headache/Pain Mild Scale (1-3) Last Admin: 11/09/23 21:01 Dose: 650 mg Al Hydroxide/Mg Hydroxide (Magnesium Hydrox/Alum Hydrox 30 Ml Oral.Susp) 30 ml PO Q6H PRN PRN Reason: Heartburn/Nausea Last Admin: 10/31/23 23:58 Dose: 30 ml Aripiprazole (Aripiprazole 10 Mg Tablet) 10 mg PO DAILY@1800 [facility]Y Famotidine (Famotidine 20 Mg Tablet) 20 mg PO BID@0630,1630 [facility] Last Admin: 11/14/23 06:46 Dose: Not Given Loperamide HCl (Loperamide Hcl 2 Mg Capsule) 2 mg PO Q4H PRN PRN Reason: loose stools Last Admin: 11/12/23 11:09 Dose: 2 mg Magnesium Hydroxide (Milk Of Magnesia 30 Ml Oral.Susp) 30 ml PO DAILY PRN PRN Reason: Constipation Mirtazapine (Mirtazapine 7.5 Mg Tablet) 7.5 mg PO BEDTIME [facility] Nystatin (Nystatin Oral Susp 500,000 Unit/5 Ml Oral.Susp) 500,000 unit PO TID [facility] Last Admin: 11/14/23 10:12 Dose: Not Given Paliperidone (Paliperidone Er 3 Mg Tab.Er.24) 3 mg PO BEDTIME [facility] Last Admin: 11/13/23 21:02 Dose: 3 mg Senna (Sennosides 8.6 Mg Tablet) 8.6 mg PO BEDTIME [facility] Last Admin: 11/13/23 21:02 Dose: 8.6 mg Trazodone HCl (Trazodone Hcl 50 Mg Tablet) 50 mg PO BEDTIME PRN PRN Reason: Insomnia Last Admin: 11/13/23 21:03 Dose: 50 mg Allergies Allergies Allergy/AdvReac Type Severity Reaction Status Date / Time omeprazole Allergy Unknown Verified 10/30/23 00:09 Assessment & Plan Assessment & Plan (1) Schizophrenia: Status: Acute Code(s): F20.9 - Schizophrenia, unspecified Plan Mr. Adame is 63 y/o male with hx schizophrenia who has been admitted to [facility] for psychiatric treatment due to minimal oral intake, paranoid delusions, causing severe failure to thrive since 04/2023. He had to be sent out for medical treatment several times due to dehydration, cholelithiasis, ultimately, psychiatric facility [facility] did not take him back as they reported pt needs more medical support. He has been at [facility] since 09/06/2023 pending placement in psychiatric admission. records indicate that pt had minimal response to medications such as olanzapine, abilify, seroquel. He even had clozaril trial but had a marked change in mentation that resolved once this medication was discontinued. Pt also noted to have dysphasia and on chopped food. Will order ST to assess food consistency need. Will also order nutritional consult. Pt already declined medications, food, labs without showing understanding of potential medical conditions. Consider ECT,going for guardianship as pt not able to care for himself. Will also add DVT prophylaxis. PLAN 11/02 did not eat or drink anything. minimally eating or drinking. 11/03 he had 3 ensures today, however, dark urine, UA and CMP ordered. BP low but stable. 11/05 continue same treatment 11/06 continue same treatment 11/07 continue tx. pt refuses medication, appears internally preoccupied, catatonic like features, may consider ECT as it may have significant impact on overall functioning if his presentation is not mostly negative symptoms of schizophrenia. 11/08 may consider revoking CV, consider ECT. [facility] had filed for guardianship. 11/09 cv revoke, sect 01/09 filed. 11/10 continue tx. 11/11 continue tx. 11/13/2023 Would benefit from long-acting injectable consider ECT ck tsh chem profile 11/14/2023 Given injury intravenous fluids recheck labs in the morning strongly need to consider quarter ordered treatment plan for medical safety patient denies wanting to he does report dysphagia GI consult ordered Reason for continued inpatient stay Substantial Risk for: harm to self, rapid decompensation and med/psych decompensation Time Spent With Patient Time: Total time managing care of this patient today ____ minutes.
[2023-11-14 10:56] LABS: TSH reflex Free T4 0.26 uIU/mL (0.32-4.0)
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
[2023-11-14] MEDS: Nystatin Oral Susp 500,000 UNIT/5 ML ORAL.SUSP 500000 UNIT PO ×2 (15:23→21:21)
[2023-11-14 15:28] LABS: MANUAL DIFF FLAG NO
[2023-11-14] MEDS: 0.9 % Sodium Chloride 1,000 ML 999 ML IV (15:48)
[2023-11-14 15:51] LABS: Basophils Percent Auto 0.3 % (0-2); Eosinophils Percent Auto 0.3 % (0-4); Hematocrit 42.3 % (42.0-52.0); Hemoglobin 14.8 g/dl (14.0-18.0); Imm Gran Abs Auto 0.02 X10*3/uL (0.00-0.03); Imm Gran Pct Auto 0.3 % (0.0-0.4); Lymphocytes Percent Auto 14.3 % (20-40); Mean Corpuscular Hemoglobin 35.3 pg (27.0-33.0); Mean Platelet Volume 11.5 fL (9.4-12.4); Monocytes Absolute Auto 0.8 X10*3/uL (0.1-1.2); Monocytes Percent Auto 11.5 % (2-11); Neutrophils Percent Auto 73.3 % (45-73); Platelet Count 197 X10*3/uL (160-400); Red Blood Count 4.19 X10*6/uL (4.60-5.80); Red Cell Distribution Width 13.7 % (11.0-16.0); White Blood Count 6.8 X10*3/uL (4.8-10.8)
--- NOTE | 2023-11-14 16:45 | PC.NURSE ---
Addendum entered by Paula Delgado RN 11/14/23 17:06: IV placed in patients right hand* Original Note: Patient was noted to be increasingly fatigued throughout the morning. He denied all morning medications/food/drinks and was difficult to engage with due to excessive sleepiness. In the afternoon patient was encouraged to get up out of bed and drink some fluids. Patient was getting ready to get in the shower an began dry heaving and appeared fatigued/pale. Provider Aries Abraham notified via tiger text and pt seen by the hospitalist Nancy Mccabe. Per hospitalist, labs, chest x-ray, gastroenterology consult and 1L of NS were ordered. After patient was showered by staff and taken to the ED for an xray, an IV was started in the patients left hand by the nursing supervisor frame sample and pattern Kenny Schwarz and pt was started on 1 Liter of NS with a 1:1 during the infusion. IV site is intact, no redness, inflammation or pain noted/reported at this time.
[2023-11-14] MEDS: Famotidine 20 MG TABLET PO (16:59)
[2023-11-14 20:00] VITALS: BP 99/59; PULSE 90; RESP 16; TEMP 36.9; O2SAT 94
[2023-11-14] MEDS: Paliperidone ER 3 MG TAB.ER.24 PO (21:21)
[2023-11-14] MEDS: Sennosides 8.6 MG TABLET PO (21:21)
[2023-11-14] MEDS: Mirtazapine 7.5 MG TABLET PO (21:21)
[2023-11-15] MEDS: Famotidine 20 MG TABLET PO ×2 (05:53→16:11)
--- NOTE | 2023-11-15 06:11 | PC.NURSE ---
Patient remained in bed through the shift, slept all night. R hand Iv access patent, dressing clean and intact. Took all scheduled meds, well tolerated.
[2023-11-15 08:00] VITALS: BP 83/59; PULSE 84; RESP 16; TEMP 36.7; O2SAT 94
[2023-11-15] MEDS: Nystatin Oral Susp 500,000 UNIT/5 ML ORAL.SUSP 500000 UNIT PO ×3 (08:37→20:59)
--- NOTE | 2023-11-15 08:37 | P.PNPSI_ITS ---
Subjective Subjective Date of Service: 11/15/23 Reason For Visit: Schizoaffective disorder, unspecified type Subjective Notes: Section 7 Interim History: pt slept through the night. Pt mostly in bed. He reports not doing well, however, not elaborating in which way. Intermittently taking medications. he received IV fluids over the weekend. repeat labs again. Review of Systems Review of Systems General: No fevers, malaise, unintentional weight loss HEENT: No blurred vision, diplopia. No sore throat, nasal congestion, rhinorrhea, sinus pain, ear pain Cardiovascular: No chest pain, palpitations, or leg edema Respiratory: No shortness of breath, wheezing, cough GI: No abdominal pain, nausea, vomiting, diarrhea, constipation, melena, hematochezia : No dysuria, hematuria, increased urinary frequency, decreased urinary output MSK: No myalgia, back pain Neuro: No headaches, weakness, paresthesias Skin: No rashes or lesions Pt affect flat, unengaged in interview. Question reliability of ros Mental Status Exam Mental Status Exam Narrative: Appearance: cachectic, malnourished, in NAD Behavior: guarded, not engaging in any conversation Psychomotor: no agitation or retardation noted Speech: mostly clear, regular rate, minimally spontaneous TP: wanting to rest TC: tired, not wanting to take any medications Mood: tired Affect: constricted SI: denies HI:denies VH/AH: appears internally preoccupied Delusions: suspicious about medications/treatment Insight/judgment: impaired x 2. memory/cog: alert would not engage Diagnostics Vital Signs (24Hr): Vital Signs - 24 hr 11/14/23 20:00 Temperature 98.4 F Pulse Rate 90 Respiratory Rate 16 Blood Pressure 99/59 L Pulse Oximetry 94 Oxygen Delivery Method Room Air BMI result Body Mass Index 17.6 Labs 11/14/23 15:20 11/14/23 10:10 Labs: Laboratory Results - last 48 hr 11/14/23 11/14/23 10:10 15:20 WBC 6.8 RBC 4.19 L Hgb 14.8 Hct 42.3 MCV 101.0 H MCH 35.3 H MCHC 35.0 RDW 13.7 Plt Count 197 MPV 11.5 Immature Gran % (Auto) 0.3 Neut % (Auto) 73.3 H Lymph % (Auto) 14.3 L [place] % (Auto) 11.5 H Eos % (Auto) 0.3 Baso % (Auto) 0.3 Lymph # (Auto) 1.0 L [place] # (Auto) 0.8 Eos # (Auto) 0.0 Baso # (Auto) 0.0 Abs Immat Gran (auto) 0.02 Absolute Neuts (auto) 5.0 Absolute Nucleated RBC 0.000 Nucleated RBC % (auto) 0.0 Sodium 140 Potassium 4.1 Chloride 105 Carbon Dioxide 24 Anion Gap 15 BUN 42 H Creatinine 1.06 Estim Creat Clear Calc 51.4 Estimated GFR > 60 Fasting Glucose 88 Calcium 9.3 Magnesium 2.3 Total Bilirubin 2.7 H AST 14 ALT 22 Alkaline Phosphatase 70 Total Protein 6.6 Albumin 3.4 L TSH 0.26 L Free T4 1.00 Imaging Radiology Impressions: ITS Impressions Chest X-Ray 11/14/23 15:16 IMPRESSION: No evidence of acute disease. No pulmonary mass, pneumonia or pleural effusion. Medications Medications Current Medications Acetaminophen (Acetaminophen 325 Mg Tablet) 650 mg PO Q6H PRN PRN Reason: Headache/Pain Mild Scale (1-3) Last Admin: 11/09/23 21:01 Dose: 650 mg Al Hydroxide/Mg Hydroxide (Magnesium Hydrox/Alum Hydrox 30 Ml Oral.Susp) 30 ml PO Q6H PRN PRN Reason: Heartburn/Nausea Last Admin: 10/31/23 23:58 Dose: 30 ml Aripiprazole (Aripiprazole 5 Mg Tablet) 5 mg PO DAILY@1800 [facility] Last Admin: 11/14/23 17:27 Dose: Not Given Famotidine (Famotidine 20 Mg Tablet) 20 mg PO BID@0630,1630 [facility] Last Admin: 11/15/23 05:53 Dose: 20 mg Loperamide HCl (Loperamide Hcl 2 Mg Capsule) 2 mg PO Q4H PRN PRN Reason: loose stools Last Admin: 11/12/23 11:09 Dose: 2 mg Magnesium Hydroxide (Milk Of Magnesia 30 Ml Oral.Susp) 30 ml PO DAILY PRN PRN Reason: Constipation Mirtazapine (Mirtazapine 7.5 Mg Tablet) 7.5 mg PO BEDTIME [facility] Last Admin: 11/14/23 21:21 Dose: 7.5 mg Nystatin (Nystatin Oral Susp 500,000 Unit/5 Ml Oral.Susp) 500,000 unit PO TID [facility] Last Admin: 11/14/23 21:21 Dose: 500,000 unit Ondansetron HCl (Ondansetron Odt 4 Mg Tab.Rapdis) 4 mg TRANSLINGU Q8H PRN PRN Reason: Nausea and Vomiting Paliperidone (Paliperidone Er 3 Mg Tab.Er.24) 3 mg PO BEDTIME [facility] Last Admin: 11/14/23 21:21 Dose: 3 mg Senna (Sennosides 8.6 Mg Tablet) 8.6 mg PO BEDTIME [facility] Last Admin: 11/14/23 21:21 Dose: 8.6 mg Trazodone HCl (Trazodone Hcl 50 Mg Tablet) 50 mg PO BEDTIME PRN PRN Reason: Insomnia Last Admin: 11/13/23 21:03 Dose: 50 mg Allergies Allergies Allergy/AdvReac Type Severity Reaction Status Date / Time omeprazole Allergy Unknown Verified 10/30/23 00:09 Assessment & Plan Assessment & Plan (1) Schizophrenia: Status: Acute Code(s): F20.9 - Schizophrenia, unspecified Plan Mr. Adame is 63 y/o male with hx schizophrenia who has been admitted to [facility] for psychiatric treatment due to minimal oral intake, paranoid delusions, causing severe failure to thrive since 04/2023. He had to be sent out for medical treatment several times due to dehydration, cholelithiasis, ultimately, psychiatric facility [facility] did not take him back as they reported pt needs more medical support. He has been at [facility] since 09/06/2023 pending placement in psychiatric admission. records indicate that pt had minimal response to medications such as olanzapine, abilify, seroquel. He even had clozaril trial but had a marked change in mentation that resolved once this medication was discontinued. Pt also noted to have dysphasia and on chopped food. Will order ST to assess food consistency need. Will also order nutritional consult. Pt already declined medications, food, labs without showing understanding of potential medical conditions. Consider ECT,going for guardianship as pt not able to care for himself. Will also add DVT prophylaxis. PLAN 11/02 did not eat or drink anything. minimally eating or drinking. 11/03 he had 3 ensures today, however, dark urine, UA and CMP ordered. BP low but stable. 11/05 continue same treatment 11/06 continue same treatment 11/07 continue tx. pt refuses medication, appears internally preoccupied, catatonic like features, may consider ECT as it may have significant impact on overall functioning if his presentation is not mostly negative symptoms of schizophrenia. 11/08 may consider revoking CV, consider ECT. [facility] had filed for guardianship. 11/09 cv revoke, sect 01/09 filed. 11/10 continue tx. 11/11 continue tx. 11/13/2023 Would benefit from long-acting injectable consider ECT ck tsh chem profile 11/14/2023 Given injury intravenous fluids recheck labs in the morning strongly need to consider quarter ordered treatment plan for medical safety patient denies wanting to he does report dysphagia GI consult ordered 11/14 continue tx. Reason for continued inpatient stay Substantial Risk for: inability to function Time Spent With Patient Time: Total time managing care of this patient today ____ minutes.
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
[2023-11-15 16:37] VITALS: BP 97/62; PULSE 93
[2023-11-15] MEDS: ARIPiprazole 5 MG TABLET PO (17:44)
--- NOTE | 2023-11-15 18:23 | PM.EVENT ---
Event Note Date of Service: 11/15/23 Event Note: Pt continues to only drink sips of ensure, but minimal water intake. He was hypotensive this morning 83/59 this morning improved to 97/62 on recheck once out of bed. Suspect hypovolemia given improvement in BP following IVF last night. Yesterday, no evidence of leukocytosis or fevers to suggest infection. CXR negative for acute disease, mass, pneumonia or effusion. Would still reevaluate renal function/lytes with BMP as ordered given slight bump in creat yesterday, likely 2/2 poor po intake. GI was consulted due to pt reported dysphagia and recent oral candidiasis which he is still being treated for, however upon GI eval pt denied dysphagia per their report and was witnessed drinking ensure without difficulty and also ate a burger and chips earlier today which is reassuring. Suspect soft blood pressures and poor water intake are 2/2 to advancing dementia and failure to thrive. Thus far no evidence of infection, though would still collect UA/UC as ordered. Continue to encourage PO water intake. Monitor VS Thank you for allowing me to participate in this consult. Signing off at this time. Please do not hesitate to call for further questions or for any acute medical issues. Please alert hospitalist if hypotension recurs. Encourage water intake and OOB for blood pressure support. Check BMP. Time Spent With Patient Time: Total time managing care of this patient today ____ minutes.
[2023-11-15 20:00] VITALS: BP 96/58; PULSE 96; RESP 16; TEMP 37.1; O2SAT 96
[2023-11-15] MEDS: Paliperidone ER 3 MG TAB.ER.24 PO (20:58)
[2023-11-15] MEDS: Sennosides 8.6 MG TABLET PO (20:59)
[2023-11-15] MEDS: Mirtazapine 7.5 MG TABLET PO (20:59)
[2023-11-16] MEDS: Famotidine 20 MG TABLET PO ×2 (05:46→16:04)
[2023-11-16 08:22] VITALS: BP 94/54; PULSE 97; RESP 17; TEMP 36.5; O2SAT 95
--- NOTE | 2023-11-16 08:44 | P.PNPSI_ITS ---
Subjective Subjective Date of Service: 11/16/23 Reason For Visit: Schizoaffective disorder, unspecified type Subjective Notes: Section 7 Interim History: Pt slept most of the night. He reports he knows he is here because of his sister which he thinks is trying to take things from him. He reports he thinks he may still have restraining order. He denies SI/HI. He is somewhat guarded, reports he does not know otherwise why he is here or why others would be concern about him, including with limited oral intake. He is severely malnourished, not able to care for himself, mostly in bed. He is prompted to eat and attend ADLs. Otherwise he is mostly in his bed, minimally interacting with peers or others. Review of Systems Review of Systems General: No fevers, malaise, unintentional weight loss HEENT: No blurred vision, diplopia. No sore throat, nasal congestion, rhinorrhea, sinus pain, ear pain Cardiovascular: No chest pain, palpitations, or leg edema Respiratory: No shortness of breath, wheezing, cough GI: No abdominal pain, nausea, vomiting, diarrhea, constipation, melena, hematochezia : No dysuria, hematuria, increased urinary frequency, decreased urinary output MSK: No myalgia, back pain Neuro: No headaches, weakness, paresthesias Skin: No rashes or lesions Pt affect flat, unengaged in interview. Question reliability of ros Mental Status Exam Mental Status Exam Narrative: Appearance: cachectic, malnourished, in NAD Behavior: guarded, not engaging in any conversation Psychomotor: no agitation or retardation noted Speech: mostly clear, regular rate, minimally spontaneous TP: wanting to rest TC: tired, not wanting to take any medications Mood: tired Affect: constricted SI: denies HI:denies VH/AH: appears internally preoccupied Delusions: suspicious about medications/treatment Insight/judgment: impaired x 2. memory/cog: alert would not engage Diagnostics Vital Signs (24Hr): Vital Signs - 24 hr 11/15/23 16:37 11/15/23 20:00 11/16/23 08:22 Temperature 98.8 F 97.7 F Pulse Rate 93 96 97 Respiratory Rate 16 17 Blood Pressure 97/62 96/58 L 94/54 L Pulse Oximetry 96 95 Oxygen Delivery Method Room Air Room Air BMI result Body Mass Index 17.6 Labs 11/14/23 15:20 11/16/23 09:10 Labs: Laboratory Results - last 48 hr 11/14/23 11/14/23 10:10 15:20 WBC 6.8 RBC 4.19 L Hgb 14.8 Hct 42.3 MCV 101.0 H MCH 35.3 H MCHC 35.0 RDW 13.7 Plt Count 197 MPV 11.5 Immature Gran % (Auto) 0.3 Neut % (Auto) 73.3 H Lymph % (Auto) 14.3 L [place] % (Auto) 11.5 H Eos % (Auto) 0.3 Baso % (Auto) 0.3 Lymph # (Auto) 1.0 L [place] # (Auto) 0.8 Eos # (Auto) 0.0 Baso # (Auto) 0.0 Abs Immat Gran (auto) 0.02 Absolute Neuts (auto) 5.0 Absolute Nucleated RBC 0.000 Nucleated RBC % (auto) 0.0 Sodium 140 Potassium 4.1 Chloride 105 Carbon Dioxide 24 Anion Gap 15 BUN 42 H Creatinine 1.06 Estim Creat Clear Calc 51.4 Estimated GFR > 60 Fasting Glucose 88 Calcium 9.3 Magnesium 2.3 Total Bilirubin 2.7 H AST 14 ALT 22 Alkaline Phosphatase 70 Total Protein 6.6 Albumin 3.4 L TSH 0.26 L Free T4 1.00 Imaging Radiology Impressions: ITS Impressions Chest X-Ray 11/14/23 15:16 IMPRESSION: No evidence of acute disease. No pulmonary mass, pneumonia or pleural effusion. Medications Medications Current Medications Acetaminophen (Acetaminophen 325 Mg Tablet) 650 mg PO Q6H PRN PRN Reason: Headache/Pain Mild Scale (1-3) Last Admin: 11/09/23 21:01 Dose: 650 mg Al Hydroxide/Mg Hydroxide (Magnesium Hydrox/Alum Hydrox 30 Ml Oral.Susp) 30 ml PO Q6H PRN PRN Reason: Heartburn/Nausea Last Admin: 10/31/23 23:58 Dose: 30 ml Aripiprazole (Aripiprazole 5 Mg Tablet) 5 mg PO DAILY@1800 [facility] Last Admin: 11/15/23 17:44 Dose: 5 mg Famotidine (Famotidine 20 Mg Tablet) 20 mg PO BID@0630,1630 [facility] Last Admin: 11/16/23 05:46 Dose: 20 mg Loperamide HCl (Loperamide Hcl 2 Mg Capsule) 2 mg PO Q4H PRN PRN Reason: loose stools Last Admin: 11/12/23 11:09 Dose: 2 mg Magnesium Hydroxide (Milk Of Magnesia 30 Ml Oral.Susp) 30 ml PO DAILY PRN PRN Reason: Constipation Mirtazapine (Mirtazapine 7.5 Mg Tablet) 7.5 mg PO BEDTIME [facility] Last Admin: 11/15/23 20:59 Dose: 7.5 mg Nystatin (Nystatin Oral Susp 500,000 Unit/5 Ml Oral.Susp) 500,000 unit PO TID [facility] Last Admin: 11/15/23 20:59 Dose: 500,000 unit Ondansetron HCl (Ondansetron Odt 4 Mg Tab.Rapdis) 4 mg TRANSLINGU Q8H PRN PRN Reason: Nausea and Vomiting Paliperidone (Paliperidone Er 3 Mg Tab.Er.24) 3 mg PO BEDTIME [facility] Last Admin: 11/15/23 20:58 Dose: 3 mg Senna (Sennosides 8.6 Mg Tablet) 8.6 mg PO BEDTIME [facility] Last Admin: 11/15/23 20:59 Dose: 8.6 mg Trazodone HCl (Trazodone Hcl 50 Mg Tablet) 50 mg PO BEDTIME PRN PRN Reason: Insomnia Last Admin: 11/13/23 21:03 Dose: 50 mg Allergies Allergies Allergy/AdvReac Type Severity Reaction Status Date / Time omeprazole Allergy Unknown Verified 10/30/23 00:09 Assessment & Plan Assessment & Plan (1) Schizophrenia: Status: Acute Code(s): F20.9 - Schizophrenia, unspecified Plan Mr. Adame is 63 y/o male with hx schizophrenia who has been admitted [facility] for [facility] due to minimal oral intake, paranoid delusions, causing severe failure to thrive since 04/2023. He had to be sent out for medical treatment several times due to dehydration, cholelithiasis, ultimately, psychiatric [facility] did not [facility] him [facility] as they reported pt needs more medical support. He has been at [facility] since 09/06/2023 pending placement in psychiatric admission. records indicate that pt had minimal response to medications such as olanzapine, abilify, seroquel. He even had clozaril trial but had a marked change in mentation that resolved once this medication was discontinued. Pt also noted to have dysphasia and on chopped food. Will order ST to assess food consistency need. Will also order nutritional consult. Pt already declined medications, food, labs without showing understanding of potential medical conditions. Consider ECT,going for guardianship as pt not able to care for himself. Will also add DVT prophylaxis. PLAN 11/02 did not eat or drink anything. minimally eating or drinking. 11/03 he had 3 ensures today, however, dark urine, UA and CMP ordered. BP low but stable. 11/05 continue same treatment 11/06 continue same treatment 11/07 continue tx. pt refuses medication, appears internally preoccupied, catatonic like features, may consider ECT as it may have significant impact on overall functioning if his presentation is not mostly negative symptoms of schizophrenia. 11/08 may consider revoking CV, consider ECT. [facility] had filed for guardianship. 11/09 cv revoke, sect 01/09 filed. 11/10 continue tx. 11/11 continue tx. 11/13/2023 Would benefit from long-acting injectable consider ECT ck tsh chem profile 11/14/2023 Given injury intravenous fluids recheck labs in the morning strongly need to consider quarter ordered treatment plan for medical safety patient denies wanting to he does report dysphagia GI consult ordered 11/14 continue tx. 11/15 continue tx. Reason for continued inpatient stay Substantial Risk for: inability to function Time Spent With Patient Time: Total time managing care of this patient today ____ minutes.
[2023-11-16] MEDS: Nystatin Oral Susp 500,000 UNIT/5 ML ORAL.SUSP 500000 UNIT PO ×3 (08:57→21:34)
[2023-11-16 09:44] LABS: Alanine Aminotransferase 16 U/L (0-40); Albumin Level 3.4 g/dL (3.5-5.0); Alkaline Phosphatase 84 U/L (39-117); Anion Gap 13 (12-20); Aspartate Amino Transferase 14 U/L (5-37); Bilirubin Total 1.8 mg/dL (0.0-1.0); Blood Urea Nitrogen 35 mg/dL (9-16); Calcium 9.3 mg/dL (8.4-10.2); Carbon Dioxide 24 mmol/L (22-29); Chloride 107 mmol/L (96-108); Creatinine Clr Calc Pharmacy 55.1; Estimated Glomerular Filt Rate > 60; Glucose Random 111 mg/dL (60-115); Potassium 3.9 mmol/L (3.3-5.1); Sodium 140 mmol/L (135-145); Total Protein 6.9 g/dL (6.5-8.0)
[2023-11-16] MEDS: Ondansetron ODT 4 MG TAB.RAPDIS TRANSLINGU (16:27)
[2023-11-16] MEDS: ARIPiprazole 5 MG TABLET PO (17:43)
[2023-11-16 20:00] VITALS: BP 98/64; PULSE 58; RESP 17; TEMP 36.6; O2SAT 94
[2023-11-16] MEDS: Paliperidone ER 3 MG TAB.ER.24 PO (21:33)
[2023-11-16] MEDS: Mirtazapine 7.5 MG TABLET PO (21:33)
[2023-11-16] MEDS: Sennosides 8.6 MG TABLET PO (21:34)
[2023-11-17] MEDS: Famotidine 20 MG TABLET PO ×2 (05:41→17:01)
[2023-11-17 08:09] VITALS: BP 99/67; PULSE 98; RESP 16; TEMP 36.6; O2SAT 96
[2023-11-17] MEDS: Nystatin Oral Susp 500,000 UNIT/5 ML ORAL.SUSP 500000 UNIT PO ×3 (08:14→21:07)
--- NOTE | 2023-11-17 12:29 | MHC.CLN ---
F/U DIET=REGULAR. PO INTAKE USUALLY VERY POOR BUT WILL ACCEPT SOME FOODS. USUALLY ACCEPTS ENSURE SUPPLEMENT. ENSURE TID ORDERED (1050 KCALS, 60 G PROTEIN). IF CONSUMED 100% PROVIDES APPROX 60% OF ESTIMATED ENERGY NEEDS. ENCOURAGE ADDITIONAL SUPPLEMENTS FROM UNIT KITCHEN. RECEIVED IV FLUIDS 11/14/23. SHOWS SIGNIFICANT WEIGHT LOSS OF -10.4% SINCE ADMISSION. FOLLOW FOR PLAN OF CARE AND PO INTAKE. ENCOURAGE INTAKE ABLE. RD AVAILABLE IF ALTERNATE NUTRITION NEEDED.
--- NOTE | 2023-11-17 16:37 | HO.PSYCHPN ---
Subjective Subjective Date of Service: 11/17/23 Reason For Visit: Schizoaffective disorder, unspecified type Subjective Notes: Section 7 Interim History: Pt continues to report that he believes it is his sister who wants him here in the hospital. He does not seem to see any concern in terms of his presentation and thinks he can find a place for him to live despite not having made any efforts or attempts to engage in any type of meaningful conversation with providers about dispo. He is mostly in bed. banking officer following pt closely as he has lost 10% of his weight while here on the unit. He had ensure x 3. nursing to closely monitor and document what he is drinking, especially if ensure or other fluids. Dietitian recommend alternative nutrition-feeding tube or parenteral nutrition. Medication Compliance: Intermittent Diagnostics Vital Signs (24Hr): Vital Signs - 24 hr 11/16/23 20:00 11/17/23 08:09 Temperature 97.8 F 97.9 F Pulse Rate 58 98 Respiratory Rate 17 16 Blood Pressure 98/64 99/67 Pulse Oximetry 94 96 Oxygen Delivery Method Room Air Room Air BMI result Body Mass Index 17.6 Labs 11/14/23 15:20 11/16/23 09:10 Labs: Laboratory Results - last 48 hr 11/16/23 09:10 Sodium 140 Potassium 3.9 Chloride 107 Carbon Dioxide 24 Anion Gap 13 BUN 35 H Creatinine 0.99 Estim Creat Clear Calc 55.1 Estimated GFR > 60 Random Glucose 111 Calcium 9.3 Total Bilirubin 1.8 H AST 14 ALT 16 Alkaline Phosphatase 84 Total Protein 6.9 Albumin 3.4 L Imaging Radiology Impressions: ITS Impressions Chest X-Ray 11/14/23 15:16 IMPRESSION: No evidence of acute disease. No pulmonary mass, pneumonia or pleural effusion. Medications Medications Current Medications Acetaminophen (Acetaminophen 325 Mg Tablet) 650 mg PO Q6H PRN PRN Reason: Headache/Pain Mild Scale (1-3) Last Admin: 11/09/23 21:01 Dose: 650 mg Al Hydroxide/Mg Hydroxide (Magnesium Hydrox/Alum Hydrox 30 Ml Oral.Susp) 30 ml PO Q6H PRN PRN Reason: Heartburn/Nausea Last Admin: 10/31/23 23:58 Dose: 30 ml Aripiprazole (Aripiprazole 5 Mg Tablet) 5 mg PO DAILY@1800 [facility] Last Admin: 11/16/23 17:43 Dose: 5 mg Famotidine (Famotidine 20 Mg Tablet) 20 mg PO BID@0630,1630 [facility] Last Admin: 11/17/23 05:41 Dose: 20 mg Loperamide HCl (Loperamide Hcl 2 Mg Capsule) 2 mg PO Q4H PRN PRN Reason: loose stools Last Admin: 11/12/23 11:09 Dose: 2 mg Magnesium Hydroxide (Milk Of Magnesia 30 Ml Oral.Susp) 30 ml PO DAILY PRN PRN Reason: Constipation Mirtazapine (Mirtazapine 7.5 Mg Tablet) 7.5 mg PO BEDTIME [facility] Last Admin: 11/16/23 21:33 Dose: 7.5 mg Nystatin (Nystatin Oral Susp 500,000 Unit/5 Ml Oral.Susp) 500,000 unit PO TID [facility] Last Admin: 11/17/23 14:59 Dose: 500,000 unit Ondansetron HCl (Ondansetron Odt 4 Mg Tab.Rapdis) 4 mg TRANSLINGU Q8H PRN PRN Reason: Nausea and Vomiting Last Admin: 11/16/23 16:27 Dose: 4 mg Paliperidone (Paliperidone Er 3 Mg Tab.Er.24) 3 mg PO BEDTIME [facility] Last Admin: 11/16/23 21:33 Dose: 3 mg Senna (Sennosides 8.6 Mg Tablet) 8.6 mg PO BEDTIME [facility] Last Admin: 11/16/23 21:34 Dose: 8.6 mg Trazodone HCl (Trazodone Hcl 50 Mg Tablet) 50 mg PO BEDTIME PRN PRN Reason: Insomnia Last Admin: 11/13/23 21:03 Dose: 50 mg Allergies Allergies Allergy/AdvReac Type Severity Reaction Status Date / Time omeprazole Allergy Unknown Verified 10/30/23 00:09 Assessment & Plan Assessment & Plan (1) Schizophrenia: Status: Acute Code(s): F20.9 - Schizophrenia, unspecified Plan Mr. Adame is 63 y/o male with hx schizophrenia who has been admitted to [facility] for psychiatric treatment due to minimal oral intake, paranoid delusions, causing severe failure to thrive since 04/2023. He had to be sent out for medical treatment several times due to dehydration, cholelithiasis, ultimately, psychiatric facility [facility] did not take him back as they reported pt needs more medical support. He has been at [facility] since 09/06/2023 pending placement in psychiatric admission. records indicate that pt had minimal response to medications such as olanzapine, abilify, seroquel. He even had clozaril trial but had a marked change in mentation that resolved once this medication was discontinued. Pt also noted to have dysphasia and on chopped food. Will order ST to assess food consistency need. Will also order nutritional consult. Pt already declined medications, food, labs without showing understanding of risks versus benefits. Consider ECT,going for guardianship as pt not able to care for himself. Will also add DVT prophylaxis- if mobility is limited. PLAN 11/02 did not eat or drink anything. minimally eating or drinking. 11/03 he had 3 ensures today, however, dark urine, UA and CMP ordered. BP low but stable. 11/05 continue same treatment 11/06 continue same treatment 11/07 continue tx. pt refuses medication, appears internally preoccupied, catatonic like features, may consider ECT as it may have significant impact on overall functioning if his presentation is not mostly negative symptoms of schizophrenia. 11/08 may consider revoking CV, consider ECT. [facility] had filed for guardianship. 11/09 cv revoke, sect 01/09 filed. 11/10 continue tx. 11/11 continue tx. 11/13/2023 Would benefit from long-acting injectable consider ECT ck tsh chem profile 11/14/2023 Given injury intravenous fluids recheck labs in the morning strongly need to consider quarter ordered treatment plan for medical safety patient denies wanting to he does report dysphagia GI consult ordered 11/14 continue tx. 11/15 continue tx. 11/16 significant weight loss of more than 10% internally preoccupied. no insight into inability to care for himself. banking officer following him. pending court hearing. Reason for continued inpatient stay Substantial Risk for: inability to function Time Spent With Patient Time: Total time managing care of this patient today ____ minutes.
[2023-11-17] MEDS: ARIPiprazole 5 MG TABLET PO (17:01)
[2023-11-17 20:00] VITALS: BP 92/54; PULSE 88; RESP 17; TEMP 37.1; O2SAT 94
[2023-11-17] MEDS: LORazepam 0.5 MG TABLET PO (21:07)
[2023-11-17] MEDS: Mirtazapine 7.5 MG TABLET PO (21:07)
[2023-11-17] MEDS: Paliperidone ER 3 MG TAB.ER.24 PO (21:07)
[2023-11-18 07:00] VITALS: BMI 18.1
[2023-11-18 08:00] VITALS: BP 84/54; PULSE 83; RESP 18; TEMP 36.7; O2SAT 96
[2023-11-18 09:40] VITALS: BP 84/54; PULSE 83
[2023-11-18] MEDS: Nystatin Oral Susp 500,000 UNIT/5 ML ORAL.SUSP 500000 UNIT PO ×3 (10:03→20:48)
[2023-11-18] MEDS: ARIPiprazole 5 MG TABLET PO (16:19)
[2023-11-18] MEDS: Famotidine 20 MG TABLET PO (16:19)
--- NOTE | 2023-11-18 16:56 | HO.PSYCHPN ---
Subjective Subjective Date of Service: 11/18/23 Reason For Visit: Schizoaffective disorder, unspecified type Subjective Notes: Section 7 Interim History: Pt sleeping through the night. He is more guarded, minimally talking today. He denies any concerns. mostly in bed. SBP in low 80's may need IV fluids again. He did have ensure this morning. Review of Systems Review of Systems General: No fevers, malaise, unintentional weight loss HEENT: No blurred vision, diplopia. No sore throat, nasal congestion, rhinorrhea, sinus pain, ear pain Cardiovascular: No chest pain, palpitations, or leg edema Respiratory: No shortness of breath, wheezing, cough GI: No abdominal pain, nausea, vomiting, diarrhea, constipation, melena, hematochezia : No dysuria, hematuria, increased urinary frequency, decreased urinary output MSK: No myalgia, back pain Neuro: No headaches, weakness, paresthesias Skin: No rashes or lesions Pt affect flat, unengaged in interview. Question reliability of ros Mental Status Exam Mental Status Exam Narrative: Appearance: cachectic, malnourished, in NAD Behavior: guarded, not engaging in any conversation Psychomotor: no agitation or retardation noted Speech: mostly clear, regular rate, minimally spontaneous TP: wanting to rest TC: tired, not wanting to take any medications Mood: tired Affect: constricted SI: denies HI:denies VH/AH: appears internally preoccupied Delusions: suspicious about medications/treatment Insight/judgment: impaired x 2. memory/cog: alert would not engage Diagnostics Vital Signs (24Hr): Vital Signs - 24 hr 11/17/23 20:00 11/18/23 08:00 11/18/23 09:40 Temperature 98.8 F 98.1 F Pulse Rate 88 83 83 Respiratory Rate 17 18 Blood Pressure 92/54 L 84/54 L 84/54 L Pulse Oximetry 94 96 Oxygen Delivery Method Room Air Room Air BMI result Body Mass Index 18.1 Labs 11/14/23 15:20 11/16/23 09:10 Imaging Radiology Impressions: ITS Impressions Chest X-Ray 11/14/23 15:16 IMPRESSION: No evidence of acute disease. No pulmonary mass, pneumonia or pleural effusion. Medications Medications Current Medications Acetaminophen (Acetaminophen 325 Mg Tablet) 650 mg PO Q6H PRN PRN Reason: Headache/Pain Mild Scale (1-3) Last Admin: 11/09/23 21:01 Dose: 650 mg Al Hydroxide/Mg Hydroxide (Magnesium Hydrox/Alum Hydrox 30 Ml Oral.Susp) 30 ml PO Q6H PRN PRN Reason: Heartburn/Nausea Last Admin: 10/31/23 23:58 Dose: 30 ml Aripiprazole (Aripiprazole 5 Mg Tablet) 5 mg PO DAILY@1800 [facility] Last Admin: 11/18/23 16:19 Dose: 5 mg Famotidine (Famotidine 20 Mg Tablet) 20 mg PO BID@0630,1630 [facility] Last Admin: 11/18/23 16:19 Dose: 20 mg Loperamide HCl (Loperamide Hcl 2 Mg Capsule) 2 mg PO Q4H PRN PRN Reason: loose stools Last Admin: 11/12/23 11:09 Dose: 2 mg Lorazepam (Lorazepam 0.5 Mg Tablet) 0.5 mg PO BEDTIME [facility] Last Admin: 11/17/23 21:07 Dose: 0.5 mg Magnesium Hydroxide (Milk Of Magnesia 30 Ml Oral.Susp) 30 ml PO DAILY PRN PRN Reason: Constipation Mirtazapine (Mirtazapine 7.5 Mg Tablet) 7.5 mg PO BEDTIME [facility] Last Admin: 11/17/23 21:07 Dose: 7.5 mg Nystatin (Nystatin Oral Susp 500,000 Unit/5 Ml Oral.Susp) 500,000 unit PO TID [facility] Last Admin: 11/18/23 14:19 Dose: 500,000 unit Ondansetron HCl (Ondansetron Odt 4 Mg Tab.Rapdis) 4 mg TRANSLINGU Q8H PRN PRN Reason: Nausea and Vomiting Last Admin: 11/16/23 16:27 Dose: 4 mg Paliperidone (Paliperidone Er 3 Mg Tab.Er.24) 3 mg PO BEDTIME [facility] Last Admin: 11/17/23 21:07 Dose: 3 mg Senna (Sennosides 8.6 Mg Tablet) 8.6 mg PO BEDTIME [facility] Last Admin: 11/16/23 21:34 Dose: 8.6 mg Trazodone HCl (Trazodone Hcl 50 Mg Tablet) 50 mg PO BEDTIME PRN PRN Reason: Insomnia Last Admin: 11/13/23 21:03 Dose: 50 mg Allergies Allergies Allergy/AdvReac Type Severity Reaction Status Date / Time omeprazole Allergy Unknown Verified 10/30/23 00:09 Assessment & Plan Assessment & Plan (1) Schizophrenia: Status: Acute Code(s): F20.9 - Schizophrenia, unspecified Plan Mr. Adame is 63 y/o male with hx schizophrenia who has been admitted [facility] for psychiatric treatment due to minimal oral intake, paranoid delusions, causing severe failure to thrive since 04/2023. He had to be sent out for medical treatment several times due to dehydration, cholelithiasis, ultimately, psychiatric facility [facility] did not [facility] him back as they reported pt needs more medical support. He has been at [facility] since 09/06/2023 pending placement in psychiatric admission. records indicate that pt had minimal response to medications such as olanzapine, abilify, seroquel. He even had clozaril trial but had a marked change in mentation that resolved once this medication was discontinued. Pt also noted to have dysphasia and on chopped food. Will order ST to assess food consistency need. Will also order nutritional consult. Pt already declined medications, food, labs without showing understanding of risks versus benefits. Consider ECT,going for guardianship as pt not able to care for himself. Will also add DVT prophylaxis- if mobility is limited. PLAN 11/02 did not eat or drink anything. minimally eating or drinking. 11/03 he had 3 ensures today, however, dark urine, UA and CMP ordered. BP low but stable. 11/05 continue same treatment 11/06 continue same treatment 11/07 continue tx. pt refuses medication, appears internally preoccupied, catatonic like features, may consider ECT as it may have significant impact on overall functioning if his presentation is not mostly negative symptoms of schizophrenia. 11/08 may consider revoking CV, consider ECT. [facility] had filed for guardianship. 11/09 cv revoke, sect 01/09 filed. 11/10 continue tx. 11/11 continue tx. 11/13/2023 Would benefit from long-acting injectable consider ECT ck tsh chem profile 11/14/2023 Given injury intravenous fluids recheck labs in the morning strongly need to consider quarter ordered treatment plan for medical safety patient denies wanting to he does report dysphagia GI consult ordered 11/14 continue tx. 11/15 continue tx. 11/16 significant weight loss of more than 10% internally preoccupied. no insight into inability to care for himself. [employer] supervisor following him. pending court hearing. 11/17 continue tx. Reason for continued inpatient stay Substantial Risk for: inability to function Time Spent With Patient Time: Total time managing care of this patient today ____ minutes.
[2023-11-18 20:00] VITALS: RESP 18
[2023-11-18] MEDS: Paliperidone ER 3 MG TAB.ER.24 PO (20:48)
[2023-11-18] MEDS: LORazepam 0.5 MG TABLET PO (20:48)
[2023-11-18] MEDS: Mirtazapine 7.5 MG TABLET PO (20:48)
[2023-11-19] MEDS: Famotidine 20 MG TABLET PO ×2 (06:14→16:27)
[2023-11-19 08:00] VITALS: BP 102/71; PULSE 81; RESP 16; TEMP 36.6; O2SAT 94
[2023-11-19] MEDS: Nystatin Oral Susp 500,000 UNIT/5 ML ORAL.SUSP 500000 UNIT PO ×2 (08:50→20:17)
--- NOTE | 2023-11-19 14:00 | P.PNPSI_ITS ---
Subjective Subjective Date of Service: 11/19/23 Reason For Visit: Schizoaffective disorder, unspecified type Subjective Notes: Section 7 Interim History: Pt sleeping through the night.He has been up in mornings but then goes back to bed. He reports he can stay for tonight but tomorrow may go somewhere else. When asked where, he states I don't know. He continues to present with paranoid delusions of family, including parents are keeping him here. He denies SI/HI. He also expressed feeling depressed. We discussed how malnourished he is and may required artificial nutrition as he continues to lose weight and intake still not adequate. Review of Systems Review of Systems General: No fevers, malaise, unintentional weight loss HEENT: No blurred vision, diplopia. No sore throat, nasal congestion, rhinorrhea, sinus pain, ear pain Cardiovascular: No chest pain, palpitations, or leg edema Respiratory: No shortness of breath, wheezing, cough GI: No abdominal pain, nausea, vomiting, diarrhea, constipation, melena, hematochezia : No dysuria, hematuria, increased urinary frequency, decreased urinary output MSK: No myalgia, back pain Neuro: No headaches, weakness, paresthesias Skin: No rashes or lesions Pt affect flat, unengaged in interview. Question reliability of ros Mental Status Exam Mental Status Exam Narrative: Appearance: cachectic, malnourished, in NAD Behavior: guarded, not engaging in any conversation Psychomotor: no agitation or retardation noted Speech: mostly clear, regular rate, minimally spontaneous TP: wanting to rest TC: tired, not wanting to take any medications Mood: tired Affect: constricted SI: denies HI:denies VH/AH: appears internally preoccupied Delusions: suspicious about medications/treatment Insight/judgment: impaired x 2. memory/cog: alert would not engage Diagnostics Vital Signs (24Hr): Vital Signs - 24 hr 11/18/23 20:00 11/19/23 08:00 Temperature 97.8 F Pulse Rate 81 Respiratory Rate 18 16 Blood Pressure 102/71 Pulse Oximetry 94 Oxygen Delivery Method Room Air BMI result Body Mass Index 18.1 Labs 11/14/23 15:20 11/16/23 09:10 Imaging Radiology Impressions: ITS Impressions Chest X-Ray 11/14/23 15:16 IMPRESSION: No evidence of acute disease. No pulmonary mass, pneumonia or pleural effusion. Medications Medications Current Medications Acetaminophen (Acetaminophen 325 Mg Tablet) 650 mg PO Q6H PRN PRN Reason: Headache/Pain Mild Scale (1-3) Last Admin: 11/09/23 21:01 Dose: 650 mg Al Hydroxide/Mg Hydroxide (Magnesium Hydrox/Alum Hydrox 30 Ml Oral.Susp) 30 ml PO Q6H PRN PRN Reason: Heartburn/Nausea Last Admin: 10/31/23 23:58 Dose: 30 ml Aripiprazole (Aripiprazole 5 Mg Tablet) 5 mg PO DAILY@1800 [facility] Last Admin: 11/18/23 16:19 Dose: 5 mg Famotidine (Famotidine 20 Mg Tablet) 20 mg PO BID@0630,1630 [facility] Last Admin: 11/19/23 06:14 Dose: 20 mg Loperamide HCl (Loperamide Hcl 2 Mg Capsule) 2 mg PO Q4H PRN PRN Reason: loose stools Last Admin: 11/12/23 11:09 Dose: 2 mg Lorazepam (Lorazepam 0.5 Mg Tablet) 0.5 mg PO BEDTIME [facility] Last Admin: 11/18/23 20:48 Dose: 0.5 mg Magnesium Hydroxide (Milk Of Magnesia 30 Ml Oral.Susp) 30 ml PO DAILY PRN PRN Reason: Constipation Mirtazapine (Mirtazapine 7.5 Mg Tablet) 7.5 mg PO BEDTIME [facility] Last Admin: 11/18/23 20:48 Dose: 7.5 mg Nystatin (Nystatin Oral Susp 500,000 Unit/5 Ml Oral.Susp) 500,000 unit PO TID [facility] Last Admin: 11/19/23 08:50 Dose: 500,000 unit Ondansetron HCl (Ondansetron Odt 4 Mg Tab.Rapdis) 4 mg TRANSLINGU Q8H PRN PRN Reason: Nausea and Vomiting Last Admin: 11/16/23 16:27 Dose: 4 mg Paliperidone (Paliperidone Er 3 Mg Tab.Er.24) 3 mg PO BEDTIME [facility] Last Admin: 11/18/23 20:48 Dose: 3 mg Senna (Sennosides 8.6 Mg Tablet) 8.6 mg PO BEDTIME [facility] Last Admin: 11/16/23 21:34 Dose: 8.6 mg Trazodone HCl (Trazodone Hcl 50 Mg Tablet) 50 mg PO BEDTIME PRN PRN Reason: Insomnia Last Admin: 11/13/23 21:03 Dose: 50 mg Allergies Allergies Allergy/AdvReac Type Severity Reaction Status Date / Time omeprazole Allergy Unknown Verified 10/30/23 00:09 Assessment & Plan Assessment & Plan (1) Schizophrenia: Status: Acute Code(s): F20.9 - Schizophrenia, unspecified Plan Mr. Adame is 63 y/o male with hx schizophrenia who has been [facility] due to minimal oral intake, paranoid delusions, causing severe failure to thrive since 04/2023. He had to be sent out for medical treatment several times due to dehydration, cholelithiasis, ultimately, [facility] as they reported pt needs more medical support. He has been at [facility] since 09/06/2023 pending placement in psychiatric admission. records indicate that pt had minimal response to medications such as olanzapine, abilify, seroquel. He even had clozaril trial but had a marked change in mentation that resolved once this medication was discontinued. Pt also noted to have dysphasia and on chopped food. Will order ST to assess food consistency need. Will also order nutritional consult. Pt already declined medications, food, labs without showing understanding of risks versus benefits. Consider ECT,going for guardianship as pt not able to care for himself. Will also add DVT prophylaxis- if mobility is limited. PLAN 11/02 did not eat or drink anything. minimally eating or drinking. 11/03 he had 3 ensures today, however, dark urine, UA and CMP ordered. BP low but stable. 11/05 continue same treatment 11/06 continue same treatment 11/07 continue tx. pt refuses medication, appears internally preoccupied, catatonic like features, may consider ECT as it may have significant impact on overall functioning if his presentation is not mostly negative symptoms of schizophrenia. 11/08 may consider revoking CV, consider ECT. [facility] had filed for guardianship. 11/09 cv revoke, sect 01/09 filed. 11/10 continue tx. 11/11 continue tx. 11/13/2023 Would benefit from long-acting injectable consider ECT ck tsh chem profile 11/14/2023 Given injury intravenous fluids recheck labs in the morning strongly need to consider quarter ordered treatment plan for medical safety patient denies wanting to he does report dysphagia GI consult ordered 11/14 continue tx. 11/15 continue tx. 11/16 significant weight loss of more than 10% internally preoccupied. no insight into inability to care for himself. unit aid following him. pending court hearing. 11/17 continue tx. 11/18 continue tx. Reason for continued inpatient stay Substantial Risk for: inability to function Time Spent With Patient Time: Total time managing care of this patient today ____ minutes.
[2023-11-19] MEDS: ARIPiprazole 5 MG TABLET PO (16:27)
[2023-11-19 20:00] VITALS: BP 95/59; PULSE 94; RESP 16; TEMP 36; O2SAT 96
[2023-11-19] MEDS: Paliperidone ER 3 MG TAB.ER.24 PO (20:15)
[2023-11-19] MEDS: LORazepam 0.5 MG TABLET PO (20:16)
[2023-11-19] MEDS: Mirtazapine 7.5 MG TABLET PO (20:23)
[2023-11-20] MEDS: Famotidine 20 MG TABLET PO ×2 (06:02→16:48)
[2023-11-20 08:00] VITALS: BP 90/62; PULSE 97; RESP 16; TEMP 36.2; O2SAT 96
[2023-11-20] MEDS: Nystatin Oral Susp 500,000 UNIT/5 ML ORAL.SUSP 500000 UNIT PO ×3 (09:26→20:43)
--- NOTE | 2023-11-20 10:09 | HO.PSYCHPN ---
Subjective Subjective Date of Service: 11/20/23 Reason For Visit: Schizoaffective disorder, unspecified type Subjective Notes: Section 7 Interim History: Patient was seen and discussed in rounds today. Records and plans were reviewed. He has been doing a little better and has been brighter. He does have some food and drink intake. No complaints or side effects. No SI. No behavioral problems. No changes were made today Medication Compliance: Yes Review of Systems Review of Systems Yes all other systems are reviewed and are negative Mental Status Exam Mental Status Exam Narrative: In today's visit he is alert, oriented to person. Soft-spoken speech. Little eye contact. Affect is appropriate and very constricted and flat. No acute signs of psychosis other than some internal preoccupations. No SI. Could not be assessed cognitively. Judgment is marginal. Diagnostics Vital Signs (24Hr): Vital Signs - 24 hr 11/19/23 20:00 11/20/23 08:00 Temperature 96.8 F 97.1 F Pulse Rate 94 97 Respiratory Rate 16 16 Blood Pressure 95/59 L 90/62 Pulse Oximetry 96 96 Oxygen Delivery Method Room Air Room Air BMI result Body Mass Index 18.1 Labs 11/14/23 15:20 11/16/23 09:10 Imaging Radiology Impressions: ITS Impressions Chest X-Ray 11/14/23 15:16 IMPRESSION: No evidence of acute disease. No pulmonary mass, pneumonia or pleural effusion. Medications Medications Current Medications Acetaminophen (Acetaminophen 325 Mg Tablet) 650 mg PO Q6H PRN PRN Reason: Headache/Pain Mild Scale (1-3) Last Admin: 11/09/23 21:01 Dose: 650 mg Al Hydroxide/Mg Hydroxide (Magnesium Hydrox/Alum Hydrox 30 Ml Oral.Susp) 30 ml PO Q6H PRN PRN Reason: Heartburn/Nausea Last Admin: 10/31/23 23:58 Dose: 30 ml Aripiprazole (Aripiprazole 5 Mg Tablet) 5 mg PO DAILY@1800 YESY Last Admin: 11/19/23 16:27 Dose: 5 mg Famotidine (Famotidine 20 Mg Tablet) 20 mg PO BID@0630,1630 YESY Last Admin: 11/20/23 06:02 Dose: 20 mg Loperamide HCl (Loperamide Hcl 2 Mg Capsule) 2 mg PO Q4H PRN PRN Reason: loose stools Last Admin: 11/12/23 11:09 Dose: 2 mg Lorazepam (Lorazepam 0.5 Mg Tablet) 0.5 mg PO BEDTIME YESY Last Admin: 11/19/23 20:16 Dose: 0.5 mg Magnesium Hydroxide (Milk Of Magnesia 30 Ml Oral.Susp) 30 ml PO DAILY PRN PRN Reason: Constipation Mirtazapine (Mirtazapine 7.5 Mg Tablet) 7.5 mg PO BEDTIME YESY Last Admin: 11/19/23 20:23 Dose: 7.5 mg Nystatin (Nystatin Oral Susp 500,000 Unit/5 Ml Oral.Susp) 500,000 unit PO TID YESY Last Admin: 11/20/23 09:26 Dose: 500,000 unit Ondansetron HCl (Ondansetron Odt 4 Mg Tab.Rapdis) 4 mg TRANSLINGU Q8H PRN PRN Reason: Nausea and Vomiting Last Admin: 11/16/23 16:27 Dose: 4 mg Paliperidone (Paliperidone Er 3 Mg Tab.Er.24) 3 mg PO BEDTIME YESY Last Admin: 11/19/23 20:15 Dose: 3 mg Senna (Sennosides 8.6 Mg Tablet) 8.6 mg PO BEDTIME YESY Last Admin: 11/16/23 21:34 Dose: 8.6 mg Trazodone HCl (Trazodone Hcl 50 Mg Tablet) 50 mg PO BEDTIME PRN PRN Reason: Insomnia Last Admin: 11/13/23 21:03 Dose: 50 mg Allergies Allergies Allergy/AdvReac Type Severity Reaction Status Date / Time omeprazole Allergy Unknown Verified 10/30/23 00:09 Assessment & Plan Assessment & Plan (1) Schizophrenia: Status: Acute Code(s): F20.9 - Schizophrenia, unspecified Plan Mr. Adame is 63 y/o male with hx schizophrenia who has been admitted [facility] for [facility] treatment due to minimal oral intake, paranoid delusions, causing severe failure to thrive since 04/2023. He had to be sent out for medical treatment several times due to dehydration, cholelithiasis, ultimately, psychiatric facility [facility] did not take him back as they reported pt needs more medical support. He has been at [facility] since 09/06/2023 pending placement in psychiatric admission. records indicate that pt had minimal response to medications such as olanzapine, abilify, seroquel. He even had clozaril trial but had a marked change in mentation that resolved once this medication was discontinued. Pt also noted to have dysphasia and on chopped food. Will order ST to assess food consistency need. Will also order nutritional consult. Pt already declined medications, food, labs without showing understanding of risks versus benefits. Consider ECT,going for guardianship as pt not able to care for himself. Will also add DVT prophylaxis- if mobility is limited. PLAN 11/02 did not eat or drink anything. minimally eating or drinking. 11/03 he had 3 ensures today, however, dark urine, UA and CMP ordered. BP low but stable. 11/05 continue same treatment 11/06 continue same treatment 11/07 continue tx. pt refuses medication, appears internally preoccupied, catatonic like features, may consider ECT as it may have significant impact on overall functioning if his presentation is not mostly negative symptoms of schizophrenia. 11/08 may consider revoking CV, consider ECT. [facility] had filed for guardianship. 11/09 cv revoke, sect 01/09 filed. 11/10 continue tx. 11/11 continue tx. 11/13/2023 Would benefit from long-acting injectable consider ECT ck tsh chem profile 11/14/2023 Given injury intravenous fluids recheck labs in the morning strongly need to consider quarter ordered treatment plan for medical safety patient denies wanting to he does report dysphagia GI consult ordered 11/14 continue tx. 11/15 continue tx. 11/16 significant weight loss of more than 10% internally preoccupied. no insight into inability to care for himself. critical care educator following him. pending court hearing. 11/17 continue tx. 11/18 continue tx. 11/19: Continue current treatment and plan Reason for continued inpatient stay Substantial Risk for: inability to function Time Spent With Patient Time: Total time managing care of this patient today ____ minutes.
--- NOTE | 2023-11-20 10:30 | PC.NURSE ---
BP 90/62 and Darryl denied dizziness/lightheadedness. Dr. Dahl notified of blood pressure and Darryl has been in the 90s/100s systolically. Encouraged Darryl to drink fluids and juice/water offered but Darryl replied I'm not thirsty. Education provided and will continue to encourage fluids.
[2023-11-20] MEDS: ARIPiprazole 5 MG TABLET PO (16:48)
[2023-11-20 19:56] VITALS: BP 102/66; PULSE 98; RESP 18; TEMP 37.3; O2SAT 96
[2023-11-20] MEDS: Paliperidone ER 3 MG TAB.ER.24 PO (20:42)
[2023-11-20] MEDS: Mirtazapine 7.5 MG TABLET PO (20:42)
[2023-11-20] MEDS: LORazepam 0.5 MG TABLET PO (20:42)
[2023-11-21] MEDS: Famotidine 20 MG TABLET PO ×2 (05:39→16:53)
[2023-11-21 08:01] VITALS: BP 121/74; PULSE 102; RESP 18; TEMP 37.2; O2SAT 97
[2023-11-21] MEDS: Nystatin Oral Susp 500,000 UNIT/5 ML ORAL.SUSP 500000 UNIT PO ×3 (08:06→20:20)
--- NOTE | 2023-11-21 10:58 | HO.PSYCHPN ---
Subjective Subjective Date of Service: 11/21/23 Reason For Visit: Schizoaffective disorder, unspecified type Subjective Notes: Section 7 Interim History: Patient was seen and discussed in rounds today. Records and plans were reviewed. He continues to show some signs of improvement. Eating much better and affect is brighter. He is also coming out of his room some. Compliant with medications. No side effects or complaints. No changes were made today Medication Compliance: Yes Review of Systems Review of Systems Yes all other systems are reviewed and are negative Mental Status Exam Mental Status Exam Narrative: In today's visit he is alert, oriented to person. Soft-spoken speech. Little eye contact. Affect is appropriate and very constricted and flat. No acute signs of psychosis other than some internal preoccupations. No SI. Could not be assessed cognitively. Judgment is marginal. Diagnostics Vital Signs (24Hr): Vital Signs - 24 hr 11/20/23 19:56 11/21/23 08:01 Temperature 99.1 F 98.9 F Pulse Rate 98 102 H Respiratory Rate 18 18 Blood Pressure 102/66 121/74 Pulse Oximetry 96 97 Oxygen Delivery Method Room Air Room Air BMI result Body Mass Index 18.1 Labs 11/14/23 15:20 11/16/23 09:10 Imaging Radiology Impressions: ITS Impressions Chest X-Ray 11/14/23 15:16 IMPRESSION: No evidence of acute disease. No pulmonary mass, pneumonia or pleural effusion. Medications Medications Current Medications Acetaminophen (Acetaminophen 325 Mg Tablet) 650 mg PO Q6H PRN PRN Reason: Headache/Pain Mild Scale (1-3) Last Admin: 11/09/23 21:01 Dose: 650 mg Al Hydroxide/Mg Hydroxide (Magnesium Hydrox/Alum Hydrox 30 Ml Oral.Susp) 30 ml PO Q6H PRN PRN Reason: Heartburn/Nausea Last Admin: 10/31/23 23:58 Dose: 30 ml Aripiprazole (Aripiprazole 5 Mg Tablet) 5 mg PO DAILY@1800 YESY Last Admin: 11/20/23 16:48 Dose: 5 mg Famotidine (Famotidine 20 Mg Tablet) 20 mg PO BID@0630,1630 YESY Last Admin: 11/21/23 05:39 Dose: 20 mg Loperamide HCl (Loperamide Hcl 2 Mg Capsule) 2 mg PO Q4H PRN PRN Reason: loose stools Last Admin: 11/12/23 11:09 Dose: 2 mg Lorazepam (Lorazepam 0.5 Mg Tablet) 0.5 mg PO BEDTIME YESY Last Admin: 11/20/23 20:42 Dose: 0.5 mg Magnesium Hydroxide (Milk Of Magnesia 30 Ml Oral.Susp) 30 ml PO DAILY PRN PRN Reason: Constipation Mirtazapine (Mirtazapine 7.5 Mg Tablet) 7.5 mg PO BEDTIME YESY Last Admin: 11/20/23 20:42 Dose: 7.5 mg Nystatin (Nystatin Oral Susp 500,000 Unit/5 Ml Oral.Susp) 500,000 unit PO TID YESY Last Admin: 11/21/23 08:06 Dose: 500,000 unit Ondansetron HCl (Ondansetron Odt 4 Mg Tab.Rapdis) 4 mg TRANSLINGU Q8H PRN PRN Reason: Nausea and Vomiting Last Admin: 11/16/23 16:27 Dose: 4 mg Paliperidone (Paliperidone Er 3 Mg Tab.Er.24) 3 mg PO BEDTIME YESY Last Admin: 11/20/23 20:42 Dose: 3 mg Senna (Sennosides 8.6 Mg Tablet) 8.6 mg PO BEDTIME YESY Last Admin: 11/16/23 21:34 Dose: 8.6 mg Trazodone HCl (Trazodone Hcl 50 Mg Tablet) 50 mg PO BEDTIME PRN PRN Reason: Insomnia Last Admin: 11/13/23 21:03 Dose: 50 mg Allergies Allergies Allergy/AdvReac Type Severity Reaction Status Date / Time omeprazole Allergy Unknown Verified 10/30/23 00:09 Assessment & Plan Assessment & Plan (1) Schizophrenia: Status: Acute Code(s): F20.9 - Schizophrenia, unspecified Plan Mr. Adame is 63 y/o male with hx schizophrenia who has been admitted to [facility] for [facility] due to minimal oral intake, paranoid delusions, causing severe failure to thrive since 04/2023. He had to be sent out for medical treatment several times due to dehydration, cholelithiasis, ultimately, psychiatric facility [facility] as they reported pt needs more medical support. He has been at [facility] since 09/06/2023 pending placement in psychiatric admission. records indicate that pt had minimal response to medications such as olanzapine, abilify, seroquel. He even had clozaril trial but had a marked change in mentation that resolved once this medication was discontinued. Pt also noted to have dysphasia and on chopped food. Will order ST to assess food consistency need. Will also order nutritional consult. Pt already declined medications, food, labs without showing understanding of risks versus benefits. Consider ECT,going for guardianship as pt not able to care for himself. Will also add DVT prophylaxis- if mobility is limited. PLAN 11/02 did not eat or drink anything. minimally eating or drinking. 11/03 he had 3 ensures today, however, dark urine, UA and CMP ordered. BP low but stable. 11/05 continue same treatment 11/06 continue same treatment 11/07 continue tx. pt refuses medication, appears internally preoccupied, catatonic like features, may consider ECT as it may have significant impact on overall functioning if his presentation is not mostly negative symptoms of schizophrenia. 11/08 may consider revoking CV, consider ECT. [facility] had filed for guardianship. 11/09 cv revoke, sect 01/09 filed. 11/10 continue tx. 11/11 continue tx. 11/13/2023 Would benefit from long-acting injectable consider ECT ck tsh chem profile 11/14/2023 Given injury intravenous fluids recheck labs in the morning strongly need to consider quarter ordered treatment plan for medical safety patient denies wanting to he does report dysphagia GI consult ordered 11/14 continue tx. 11/15 continue tx. 11/16 significant weight loss of more than 10% internally preoccupied. no insight into inability to care for himself. visualizer following him. pending court hearing. 11/17 continue tx. 11/18 continue tx. 11/19: Continue current treatment and plan 11/20: Continue current regimen and plans Reason for continued inpatient stay Substantial Risk for: inability to function Time Spent With Patient Time: Total time managing care of this patient today ____ minutes.
[2023-11-21] MEDS: ARIPiprazole 5 MG TABLET PO (16:55)
[2023-11-21 20:00] VITALS: BP 105/55; PULSE 76; RESP 18; TEMP 37.2; O2SAT 97
[2023-11-21] MEDS: LORazepam 0.5 MG TABLET PO (20:20)
[2023-11-21] MEDS: Paliperidone ER 3 MG TAB.ER.24 PO (20:21)
[2023-11-21] MEDS: Mirtazapine 7.5 MG TABLET PO (20:21)
[2023-11-22] MEDS: Famotidine 20 MG TABLET PO ×2 (06:14→17:30)
[2023-11-22 08:09] VITALS: BP 98/66; PULSE 83; RESP 16; TEMP 36.7; O2SAT 94
--- NOTE | 2023-11-22 11:12 | HO.PSYCHPN ---
Subjective Subjective Date of Service: 11/22/23 Reason For Visit: Schizoaffective disorder, unspecified type Subjective Notes: Section 7 Interim History: Pt slept through the night. He had better oral intake yesterday with about 3 ensures and about 60% of few meals. Today, very limited intake. He is mostly in bed. He is not aware of impairment in terms of his own ability to care for himself. He has been taking medications now. Minimally engaging in much significant conversation. Review of Systems Review of Systems General: No fevers, malaise, unintentional weight loss HEENT: No blurred vision, diplopia. No sore throat, nasal congestion, rhinorrhea, sinus pain, ear pain Cardiovascular: No chest pain, palpitations, or leg edema Respiratory: No shortness of breath, wheezing, cough GI: No abdominal pain, nausea, vomiting, diarrhea, constipation, melena, hematochezia : No dysuria, hematuria, increased urinary frequency, decreased urinary output MSK: No myalgia, back pain Neuro: No headaches, weakness, paresthesias Skin: No rashes or lesions Pt affect flat, unengaged in interview. Question reliability of ros Yes all other systems are reviewed and are negative Mental Status Exam Mental Status Exam Patient Appearance: Unkempt Patient Orientation: Person Level of Consciousness: Awake Patient Behavior: Guarded and Passive Mood Description: Withdrawn Affect Description: Constricted Patient Cognition Impaired: Yes Ability to Follow Directions: Good Speech Pattern: Clear Diagnostics Vital Signs (24Hr): Vital Signs - 24 hr 11/21/23 20:00 11/22/23 08:09 Temperature 98.9 F 98.1 F Pulse Rate 76 83 Respiratory Rate 18 16 Blood Pressure 105/55 L 98/66 Pulse Oximetry 97 94 Oxygen Delivery Method Room Air Room Air BMI result Body Mass Index 18.1 Labs 11/14/23 15:20 11/16/23 09:10 Imaging Radiology Impressions: ITS Impressions Chest X-Ray 11/14/23 15:16 IMPRESSION: No evidence of acute disease. No pulmonary mass, pneumonia or pleural effusion. Medications Medications Current Medications Acetaminophen (Acetaminophen 325 Mg Tablet) 650 mg PO Q6H PRN PRN Reason: Headache/Pain Mild Scale (1-3) Last Admin: 11/09/23 21:01 Dose: 650 mg Al Hydroxide/Mg Hydroxide (Magnesium Hydrox/Alum Hydrox 30 Ml Oral.Susp) 30 ml PO Q6H PRN PRN Reason: Heartburn/Nausea Last Admin: 10/31/23 23:58 Dose: 30 ml Aripiprazole (Aripiprazole 5 Mg Tablet) 5 mg PO DAILY@1800 [facility] Last Admin: 11/21/23 16:55 Dose: 5 mg Famotidine (Famotidine 20 Mg Tablet) 20 mg PO BID@0630,1630 [facility] Last Admin: 11/22/23 06:14 Dose: 20 mg Loperamide HCl (Loperamide Hcl 2 Mg Capsule) 2 mg PO Q4H PRN PRN Reason: loose stools Last Admin: 11/12/23 11:09 Dose: 2 mg Lorazepam (Lorazepam 0.5 Mg Tablet) 0.5 mg PO BEDTIME [facility] Last Admin: 11/21/23 20:20 Dose: 0.5 mg Magnesium Hydroxide (Milk Of Magnesia 30 Ml Oral.Susp) 30 ml PO DAILY PRN PRN Reason: Constipation Mirtazapine (Mirtazapine 7.5 Mg Tablet) 7.5 mg PO BEDTIME [facility] Last Admin: 11/21/23 20:21 Dose: 7.5 mg Nystatin (Nystatin Oral Susp 500,000 Unit/5 Ml Oral.Susp) 500,000 unit PO TID [facility] Last Admin: 11/21/23 20:20 Dose: 500,000 unit Ondansetron HCl (Ondansetron Odt 4 Mg Tab.Rapdis) 4 mg TRANSLINGU Q8H PRN PRN Reason: Nausea and Vomiting Last Admin: 11/16/23 16:27 Dose: 4 mg Paliperidone (Paliperidone Er 3 Mg Tab.Er.24) 3 mg PO BEDTIME [facility] Last Admin: 11/21/23 20:21 Dose: 3 mg Senna (Sennosides 8.6 Mg Tablet) 8.6 mg PO BEDTIME [facility] Last Admin: 11/16/23 21:34 Dose: 8.6 mg Trazodone HCl (Trazodone Hcl 50 Mg Tablet) 50 mg PO BEDTIME PRN PRN Reason: Insomnia Last Admin: 11/13/23 21:03 Dose: 50 mg Allergies Allergies Allergy/AdvReac Type Severity Reaction Status Date / Time omeprazole Allergy Unknown Verified 10/30/23 00:09 Assessment & Plan Assessment & Plan (1) Schizophrenia: Status: Acute Code(s): F20.9 - Schizophrenia, unspecified Plan Mr. Adame is 63 y/o male with hx schizophrenia who has been [facility] due to minimal oral intake, paranoid delusions, causing severe failure to thrive since 04/2023. He had to be sent out for medical treatment several times due to dehydration, cholelithiasis, ultimately, [facility] as they reported pt needs more medical support. He has been at [facility] since 09/06/2023 pending placement in psychiatric admission. records indicate that pt had minimal response to medications such as olanzapine, abilify, seroquel. He even had clozaril trial but had a marked change in mentation that resolved once this medication was discontinued. Pt also noted to have dysphasia and on chopped food. Will order ST to assess food consistency need. Will also order nutritional consult. Pt already declined medications, food, labs without showing understanding of risks versus benefits. Consider ECT,going for guardianship as pt not able to care for himself. Will also add DVT prophylaxis- if mobility is limited. PLAN 11/02 did not eat or drink anything. minimally eating or drinking. 11/03 he had 3 ensures today, however, dark urine, UA and CMP ordered. BP low but stable. 11/05 continue same treatment 11/06 continue same treatment 11/07 continue tx. pt refuses medication, appears internally preoccupied, catatonic like features, may consider ECT as it may have significant impact on overall functioning if his presentation is not mostly negative symptoms of schizophrenia. 11/08 may consider revoking CV, consider ECT. [facility] had filed for guardianship. 11/09 cv revoke, sect 01/09 filed. 11/10 continue tx. 11/11 continue tx. 11/13/2023 Would benefit from long-acting injectable consider ECT ck tsh chem profile 11/14/2023 Given injury intravenous fluids recheck labs in the morning strongly need to consider quarter ordered treatment plan for medical safety patient denies wanting to he does report dysphagia GI consult ordered 11/14 continue tx. 11/15 continue tx. 11/16 significant weight loss of more than 10% internally preoccupied. no insight into inability to care for himself. glass driller following him. pending court hearing. 11/17 continue tx. 11/18 continue tx. 11/19: Continue current treatment and plan 11/20: Continue current regimen and plans 11/21 continue tx. continue to monitor closely oral intake, especifically ensure Reason for continued inpatient stay Substantial Risk for: inability to function Time Spent With Patient Time: Total time managing care of this patient today ____ minutes.
--- NOTE | 2023-11-22 13:08 | MHC.CLN ---
F/U DIET=REGULAR. STAFF REPORTS THAT PATIENT IS EATING BETTER. CONTINUE REGULAR DIET WITH ENSURE TID. SUPPLEMENT PROVIDES 1050 KCALS, 60 G PROTEIN. ENCOURAGE ADDITIONAL SNACKS AND SUPPLEMENTS FROM UNIT KITCHEN. FOLLOW FOR PLAN OF CARE AND PO INTAKE. ENCOURAGE INTAKE ABLE.
[2023-11-22] MEDS: Nystatin Oral Susp 500,000 UNIT/5 ML ORAL.SUSP 500000 UNIT PO ×2 (14:52→20:51)
[2023-11-22] MEDS: ARIPiprazole 5 MG TABLET PO (17:30)
[2023-11-22 20:00] VITALS: BP 70/50; PULSE 98; RESP 18; TEMP 36; O2SAT 95
[2023-11-22 20:30] VITALS: BP 78/57; PULSE 98
[2023-11-22] MEDS: Mirtazapine 7.5 MG TABLET PO (20:51)
[2023-11-22] MEDS: traZODone HCL 50 MG TABLET PO (20:51)
[2023-11-22] MEDS: Paliperidone ER 6 MG TAB.ER.24 PO (20:51)
[2023-11-22] MEDS: LORazepam 0.5 MG TABLET PO (20:51)
--- NOTE | 2023-11-23 | ECG_ITS ---
Test Reason : ECT Blood Pressure : / mmHG Vent. Rate : 089 BPM Atrial Rate : 089 BPM P-R Int : 138 ms QRS Dur : 122 ms QT Int : 348 ms P-R-T Axes : 061 075 035 degrees QTc Int : 423 ms Normal sinus rhythm Right bundle branch block Abnormal ECG No previous ECGs available Referred By: Roya Condon Electronically Signed By:Ugo Hdez
[2023-11-23] MEDS: Famotidine 20 MG TABLET PO ×2 (06:42→17:09)
[2023-11-23 06:46] VITALS: BP 97/63; PULSE 99; RESP 16; O2SAT 95
[2023-11-23 08:35] VITALS: BP 90/50; PULSE 82; RESP 18; TEMP 36.6; O2SAT 92
[2023-11-23] MEDS: LORazepam 0.5 MG TABLET PO ×2 (09:36→20:34)
[2023-11-23] MEDS: Nystatin Oral Susp 500,000 UNIT/5 ML ORAL.SUSP 500000 UNIT PO ×3 (09:36→20:34)
--- NOTE | 2023-11-23 13:43 | HO.PSYCHPN ---
Subjective Subjective Date of Service: 11/23/23 Reason For Visit: Schizoaffective disorder, unspecified type Interim History: Pt slept through the night. He had better oral intake yesterday with about 3 ensures and about 60% of few meals. Today, very limited intake. He is mostly in bed. He is not aware of impairment in terms of his own ability to care for himself. He has been taking medications now. Minimally engaging in much significant conversation. Review of Systems Review of Systems General: No fevers, malaise, unintentional weight loss HEENT: No blurred vision, diplopia. No sore throat, nasal congestion, rhinorrhea, sinus pain, ear pain Cardiovascular: No chest pain, palpitations, or leg edema Respiratory: No shortness of breath, wheezing, cough GI: No abdominal pain, nausea, vomiting, diarrhea, constipation, melena, hematochezia : No dysuria, hematuria, increased urinary frequency, decreased urinary output MSK: No myalgia, back pain Neuro: No headaches, weakness, paresthesias Skin: No rashes or lesions Pt affect flat, unengaged in interview. Question reliability of ros Yes all other systems are reviewed and are negative Mental Status Exam Mental Status Exam Narrative: Appearance: cachectic, malnourished, in NAD Behavior: guarded, not engaging in any conversation Psychomotor: no agitation or retardation noted Speech: mostly clear, regular rate, minimally spontaneous TP: wanting to rest TC: feeling tired Mood: tired Affect: constricted SI: denies HI:denies VH/AH: appears internally preoccupied Delusions: thinks here because family want him here Insight/judgment: impaired x 2. memory/cog: alert, oriented to place, not situation. pending MOCA. Diagnostics Vital Signs (24Hr): Vital Signs - 24 hr 11/22/23 20:00 11/22/23 20:30 11/23/23 06:46 Temperature 96.8 F Pulse Rate 98 98 99 Respiratory Rate 18 16 Blood Pressure 70/50 L 78/57 L 97/63 Pulse Oximetry 95 95 Oxygen Delivery Method Room Air Room Air 11/23/23 08:35 Temperature 97.9 F Pulse Rate 82 Respiratory Rate 18 Blood Pressure 90/50 L Pulse Oximetry 92 Oxygen Delivery Method Room Air BMI result Body Mass Index 18.1 Labs 11/14/23 15:20 11/16/23 09:10 Imaging Radiology Impressions: ITS Impressions Chest X-Ray 11/14/23 15:16 IMPRESSION: No evidence of acute disease. No pulmonary mass, pneumonia or pleural effusion. Medications Medications Current Medications Acetaminophen (Acetaminophen 325 Mg Tablet) 650 mg PO Q6H PRN PRN Reason: Headache/Pain Mild Scale (1-3) Last Admin: 11/09/23 21:01 Dose: 650 mg Al Hydroxide/Mg Hydroxide (Magnesium Hydrox/Alum Hydrox 30 Ml Oral.Susp) 30 ml PO Q6H PRN PRN Reason: Heartburn/Nausea Last Admin: 10/31/23 23:58 Dose: 30 ml Aripiprazole (Aripiprazole 5 Mg Tablet) 5 mg PO DAILY@1800 [facility] Last Admin: 11/22/23 17:30 Dose: 5 mg Famotidine (Famotidine 20 Mg Tablet) 20 mg PO BID@0630,1630 [facility] Last Admin: 11/23/23 06:42 Dose: 20 mg Loperamide HCl (Loperamide Hcl 2 Mg Capsule) 2 mg PO Q4H PRN PRN Reason: loose stools Last Admin: 11/12/23 11:09 Dose: 2 mg Lorazepam (Lorazepam 0.5 Mg Tablet) 0.5 mg PO TID [facility] Last Admin: 11/23/23 09:36 Dose: 0.5 mg Magnesium Hydroxide (Milk Of Magnesia 30 Ml Oral.Susp) 30 ml PO DAILY PRN PRN Reason: Constipation Mirtazapine (Mirtazapine 7.5 Mg Tablet) 7.5 mg PO BEDTIME [facility] Last Admin: 11/22/23 20:51 Dose: 7.5 mg Nystatin (Nystatin Oral Susp 500,000 Unit/5 Ml Oral.Susp) 500,000 unit PO TID [facility] Last Admin: 11/23/23 09:36 Dose: 500,000 unit Ondansetron HCl (Ondansetron Odt 4 Mg Tab.Rapdis) 4 mg TRANSLINGU Q8H PRN PRN Reason: Nausea and Vomiting Last Admin: 11/16/23 16:27 Dose: 4 mg Paliperidone (Paliperidone Er 6 Mg Tab.Er.24) 6 mg PO BEDTIME [facility] Last Admin: 11/22/23 20:51 Dose: 6 mg Senna (Sennosides 8.6 Mg Tablet) 8.6 mg PO BEDTIME [facility] Last Admin: 11/16/23 21:34 Dose: 8.6 mg Trazodone HCl (Trazodone Hcl 50 Mg Tablet) 50 mg PO BEDTIME PRN PRN Reason: Insomnia Last Admin: 11/22/23 20:51 Dose: 50 mg Allergies Allergies Allergy/AdvReac Type Severity Reaction Status Date / Time omeprazole Allergy Unknown Verified 10/30/23 00:09 Assessment & Plan Assessment & Plan (1) Schizophrenia: Status: Acute Code(s): F20.9 - Schizophrenia, unspecified Plan Mr. Adame is 63 y/o male with hx schizophrenia who has [facility] due to minimal oral intake, paranoid delusions, causing severe failure to thrive since 04/2023. He had to be sent out for medical treatment several times due to dehydration, cholelithiasis, ultimately, [facility] as they reported pt needs more medical support. He has been at [facility] since 09/06/2023 pending placement in psychiatric admission. records indicate that pt had minimal response to medications such as olanzapine, abilify, seroquel. He even had clozaril trial but had a marked change in mentation that resolved once this medication was discontinued. Pt also noted to have dysphasia and on chopped food. Will order ST to assess food consistency need. Will also order nutritional consult. Pt already declined medications, food, labs without showing understanding of risks versus benefits. Consider ECT,going for guardianship as pt not able to care for himself. Will also add DVT prophylaxis- if mobility is limited. PLAN 11/02 did not eat or drink anything. minimally eating or drinking. 11/03 he had 3 ensures today, however, dark urine, UA and CMP ordered. BP low but stable. 11/05 continue same treatment 11/06 continue same treatment 11/07 continue tx. pt refuses medication, appears internally preoccupied, catatonic like features, may consider ECT as it may have significant impact on overall functioning if his presentation is not mostly negative symptoms of schizophrenia. 11/08 may consider revoking CV, consider ECT. [facility] had filed for guardianship. 11/09 cv revoke, sect 01/09 filed. 11/10 continue tx. 11/11 continue tx. 11/13/2023 Would benefit from long-acting injectable consider ECT ck tsh chem profile 11/14/2023 Given injury intravenous fluids recheck labs in the morning strongly need to consider quarter ordered treatment plan for medical safety patient denies wanting to he does report dysphagia GI consult ordered 11/14 continue tx. 11/15 continue tx. 11/16 significant weight loss of more than 10% internally preoccupied. no insight into inability to care for himself. math and physics instructor following him. pending court hearing. 11/17 continue tx. 11/18 continue tx. 11/19: Continue current treatment and plan 11/20: Continue current regimen and plans 11/21 continue tx. continue to monitor closely oral intake, especifically ensure 11/22 increase paliperidone 6mg po qhs. trial of ativan for catatonic like features Reason for continued inpatient stay Substantial Risk for: inability to function Time Spent With Patient Time: Total time managing care of this patient today ____ minutes.
[2023-11-23] MEDS: ARIPiprazole 5 MG TABLET PO (17:09)
[2023-11-23 20:00] VITALS: BP 91/55; PULSE 89; TEMP 36.6; O2SAT 96
[2023-11-23] MEDS: Mirtazapine 7.5 MG TABLET PO (20:34)
[2023-11-23] MEDS: Paliperidone ER 6 MG TAB.ER.24 PO (20:34)
[2023-11-24] MEDS: Famotidine 20 MG TABLET PO ×2 (06:43→16:49)
[2023-11-24 08:00] VITALS: BP 98/57; PULSE 76; RESP 18; O2SAT 93
[2023-11-24] MEDS: Nystatin Oral Susp 500,000 UNIT/5 ML ORAL.SUSP 500000 UNIT PO ×3 (09:09→20:26)
--- NOTE | 2023-11-24 09:26 | P.PNPSI_ITS ---
Subjective Subjective Date of Service: 11/24/23 Reason For Visit: Schizoaffective disorder, unspecified type Subjective Notes: Section 7 Interim History: Pt mostly in bed all day. Minimally interacting with peers or staff. He had 100% of meal in AM. one ensure. 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 He declines to elaborate. He reports he slept well, still mostly in bed. Diagnostics Vital Signs (24Hr): Vital Signs - 24 hr 11/23/23 20:00 11/24/23 08:00 Temperature 97.9 F Pulse Rate 89 76 Respiratory Rate 18 Blood Pressure 91/55 L 98/57 L Pulse Oximetry 96 93 Oxygen Delivery Method Room Air Room Air BMI result Body Mass Index 18.1 Labs 11/14/23 15:20 11/16/23 09:10 Imaging Radiology Impressions: ITS Impressions Chest X-Ray 11/14/23 15:16 IMPRESSION: No evidence of acute disease. No pulmonary mass, pneumonia or pleural effusion. Medications Medications Current Medications Acetaminophen (Acetaminophen 325 Mg Tablet) 650 mg PO Q6H PRN PRN Reason: Headache/Pain Mild Scale (1-3) Last Admin: 11/09/23 21:01 Dose: 650 mg Al Hydroxide/Mg Hydroxide (Magnesium Hydrox/Alum Hydrox 30 Ml Oral.Susp) 30 ml PO Q6H PRN PRN Reason: Heartburn/Nausea Last Admin: 10/31/23 23:58 Dose: 30 ml Aripiprazole (Aripiprazole 5 Mg Tablet) 5 mg PO DAILY@1800 [facility] Last Admin: 11/23/23 17:09 Dose: 5 mg Famotidine (Famotidine 20 Mg Tablet) 20 mg PO BID@0630,1630 [facility] Last Admin: 11/24/23 06:43 Dose: 20 mg Loperamide HCl (Loperamide Hcl 2 Mg Capsule) 2 mg PO Q4H PRN PRN Reason: loose stools Last Admin: 11/12/23 11:09 Dose: 2 mg Lorazepam (Lorazepam 0.5 Mg Tablet) 0.5 mg PO BEDTIME [facility] Last Admin: 11/23/23 20:34 Dose: 0.5 mg Magnesium Hydroxide (Milk Of Magnesia 30 Ml Oral.Susp) 30 ml PO DAILY PRN PRN Reason: Constipation Mirtazapine (Mirtazapine 7.5 Mg Tablet) 7.5 mg PO BEDTIME [facility] Last Admin: 11/23/23 20:34 Dose: 7.5 mg Nystatin (Nystatin Oral Susp 500,000 Unit/5 Ml Oral.Susp) 500,000 unit PO TID [facility] Last Admin: 11/24/23 09:09 Dose: 500,000 unit Ondansetron HCl (Ondansetron Odt 4 Mg Tab.Rapdis) 4 mg TRANSLINGU Q8H PRN PRN Reason: Nausea and Vomiting Last Admin: 11/16/23 16:27 Dose: 4 mg Paliperidone (Paliperidone Er 6 Mg Tab.Er.24) 6 mg PO BEDTIME [facility] Last Admin: 11/23/23 20:34 Dose: 6 mg Senna (Sennosides 8.6 Mg Tablet) 8.6 mg PO BEDTIME [facility] Last Admin: 11/16/23 21:34 Dose: 8.6 mg Trazodone HCl (Trazodone Hcl 50 Mg Tablet) 50 mg PO BEDTIME PRN PRN Reason: Insomnia Last Admin: 11/22/23 20:51 Dose: 50 mg Allergies Allergies Allergy/AdvReac Type Severity Reaction Status Date / Time omeprazole Allergy Unknown Verified 10/30/23 00:09 Assessment & Plan Assessment & Plan (1) Schizophrenia: Status: Acute Code(s): F20.9 - Schizophrenia, unspecified Plan Mr. Adame is 63 y/o male with hx schizophrenia who has [facility] due to minimal oral intake, paranoid delusions, causing severe failure to thrive since 04/2023. He had to be sent out for medical treatment several times due to dehydration, cholelithiasis, ultimately, [facility] as they reported pt needs more medical support. He has been at [facility] since 09/06/2023 pending placement in psychiatric admission. records indicate that pt had minimal response to medications such as olanzapine, abilify, seroquel. He even had clozaril trial but had a marked change in mentation that resolved once this medication was discontinued. Pt also noted to have dysphasia and on chopped food. Will order ST to assess food consistency need. Will also order nutritional consult. Pt already declined medications, food, labs without showing understanding of risks versus benefits. Consider ECT,going for guardianship as pt not able to care for himself. Will also add DVT prophylaxis- if mobility is limited. PLAN 11/02 did not eat or drink anything. minimally eating or drinking. 11/03 he had 3 ensures today, however, dark urine, UA and CMP ordered. BP low but stable. 11/05 continue same treatment 11/06 continue same treatment 11/07 continue tx. pt refuses medication, appears internally preoccupied, catatonic like features, may consider ECT as it may have significant impact on overall functioning if his presentation is not mostly negative symptoms of schizophrenia. 11/08 may consider revoking CV, consider ECT. [facility] had filed for guardianship. 11/09 cv revoke, sect 01/09 filed. 11/10 continue tx. 11/11 continue tx. 11/13/2023 Would benefit from long-acting injectable consider ECT ck tsh chem profile 11/14/2023 Given injury intravenous fluids recheck labs in the morning strongly need to consider quarter ordered treatment plan for medical safety patient denies wanting to he does report dysphagia GI consult ordered 11/14 continue tx. 11/15 continue tx. 11/16 significant weight loss of more than 10% internally preoccupied. no insight into inability to care for himself. public health following him. pending court hearing. 11/17 continue tx. 11/18 continue tx. 11/19: Continue current treatment and plan 11/20: Continue current regimen and plans 11/21 continue tx. continue to monitor closely oral intake, especifically ensure 11/22 increase paliperidone 6mg po qhs. trial of ativan for catatonic like features 11/[address] hearing. Reason for continued inpatient stay Substantial Risk for: inability to function Time Spent With Patient Time: Total time managing care of this patient today ____ minutes.
--- NOTE | 2023-11-24 11:12 | MHC.CLN ---
F/U DIET=REGULAR. CONTINUES TO ACCEPT ENSURE SUPPLEMENT. WILL CONSUME SOME FOOD AT MEALS. CONTINUE REGULAR DIET WITH ENSURE TID. SUPPLEMENT PROVIDES 1050 KCALS, 60 G PROTEIN. ENCOURAGE ADDITIONAL SNACKS AND SUPPLEMENTS FROM UNIT KITCHEN. FOLLOW FOR PLAN OF CARE AND PO INTAKE. ENCOURAGE INTAKE ABLE. RD TO FOLLOW WEEKLY.
[2023-11-24] MEDS: ARIPiprazole 5 MG TABLET PO (17:00)
[2023-11-24 19:38] LABS: Glucose, Whole Blood 108 mg/dL (60-115)
[2023-11-24 20:00] VITALS: BP 101/51; PULSE 92; TEMP 37.3; O2SAT 93
[2023-11-24] MEDS: Mirtazapine 7.5 MG TABLET PO (20:25)
[2023-11-24] MEDS: Paliperidone ER 6 MG TAB.ER.24 PO (20:25)
[2023-11-24] MEDS: LORazepam 0.5 MG TABLET PO (20:26)
[2023-11-24] MEDS: traZODone HCL 50 MG TABLET PO (20:26)
[2023-11-25] MEDS: Famotidine 20 MG TABLET PO ×2 (05:58→17:35)
[2023-11-25 08:00] VITALS: BP 98/55; PULSE 83; RESP 18; TEMP 36.1; O2SAT 94
[2023-11-25] MEDS: Nystatin Oral Susp 500,000 UNIT/5 ML ORAL.SUSP 500000 UNIT PO ×2 (14:41→20:22)
[2023-11-25] MEDS: ARIPiprazole 5 MG TABLET PO (17:35)
[2023-11-25 20:00] VITALS: BP 116/81; PULSE 100; RESP 20; TEMP 36.3; O2SAT 98
[2023-11-25] MEDS: LORazepam 0.5 MG TABLET PO (20:22)
[2023-11-25] MEDS: Mirtazapine 15 MG TABLET PO (20:22)
[2023-11-25] MEDS: Paliperidone ER 6 MG TAB.ER.24 PO (20:22)
[2023-11-26] MEDS: Famotidine 20 MG TABLET PO ×2 (05:59→17:27)
--- NOTE | 2023-11-26 10:04 | P.PNPSI_ITS ---
Subjective Subjective Date of Service: 11/25/23 Reason For Visit: Schizoaffective disorder, unspecified type Subjective Notes: Section 8 Interim History: Pt slept most of the night. Minimally engaging with peers or staff. He reports he feels tired. No response when asked about ECT as potencial tx for his symptoms. When asked if he is feeling depressed, I don't know. More consistent oral intake. Still at times hypotensive. malnourished and weak appearing. Court hearing held- petition for involuntary psych tx was endorsed with ECT as primary treatment. Medication Compliance: Yes Side effects from medications: No Attending Groups: No Diagnostics Vital Signs (24Hr): Vital Signs - 24 hr 11/25/23 20:00 Temperature 97.3 F Pulse Rate 100 Respiratory Rate 20 Blood Pressure 116/81 Pulse Oximetry 98 Oxygen Delivery Method Room Air BMI result Body Mass Index 18.1 Labs 11/14/23 15:20 11/16/23 09:10 Labs: Laboratory Results - last 48 hr 11/24/23 19:27 POC Glucose 108 Imaging Radiology Impressions: ITS Impressions Chest X-Ray 11/14/23 15:16 IMPRESSION: No evidence of acute disease. No pulmonary mass, pneumonia or pleural effusion. Medications Medications Current Medications Acetaminophen (Acetaminophen 325 Mg Tablet) 650 mg PO Q6H PRN PRN Reason: Headache/Pain Mild Scale (1-3) Last Admin: 11/09/23 21:01 Dose: 650 mg Al Hydroxide/Mg Hydroxide (Magnesium Hydrox/Alum Hydrox 30 Ml Oral.Susp) 30 ml PO Q6H PRN PRN Reason: Heartburn/Nausea Last Admin: 10/31/23 23:58 Dose: 30 ml Aripiprazole (Aripiprazole 5 Mg Tablet) 5 mg PO DAILY@1800 [facility] Last Admin: 11/25/23 17:35 Dose: 5 mg Famotidine (Famotidine 20 Mg Tablet) 20 mg PO BID@0630,1630 [facility] Last Admin: 11/26/23 05:59 Dose: 20 mg Loperamide HCl (Loperamide Hcl 2 Mg Capsule) 2 mg PO Q4H PRN PRN Reason: loose stools Last Admin: 11/12/23 11:09 Dose: 2 mg Lorazepam (Lorazepam 0.5 Mg Tablet) 0.5 mg PO BEDTIME [facility] Last Admin: 11/25/23 20:22 Dose: 0.5 mg Magnesium Hydroxide (Milk Of Magnesia 30 Ml Oral.Susp) 30 ml PO DAILY PRN PRN Reason: Constipation Mirtazapine (Mirtazapine 15 Mg Tablet) 15 mg PO BEDTIME [facility] Last Admin: 11/25/23 20:22 Dose: 15 mg Nystatin (Nystatin Oral Susp 500,000 Unit/5 Ml Oral.Susp) 500,000 unit PO TID YESY Last Admin: 11/25/23 20:22 Dose: 500,000 unit Ondansetron HCl (Ondansetron Odt 4 Mg Tab.Rapdis) 4 mg TRANSLINGU Q8H PRN PRN Reason: Nausea and Vomiting Last Admin: 11/16/23 16:27 Dose: 4 mg Paliperidone (Paliperidone Er 6 Mg Tab.Er.24) 6 mg PO BEDTIME [facility] Last Admin: 11/25/23 20:22 Dose: 6 mg Senna (Sennosides 8.6 Mg Tablet) 8.6 mg PO BEDTIME [facility] Last Admin: 11/16/23 21:34 Dose: 8.6 mg Trazodone HCl (Trazodone Hcl 50 Mg Tablet) 50 mg PO BEDTIME PRN PRN Reason: Insomnia Last Admin: 11/24/23 20:26 Dose: 50 mg Allergies Allergies Allergy/AdvReac Type Severity Reaction Status Date / Time omeprazole Allergy Unknown Verified 10/30/23 00:09 Assessment & Plan Assessment & Plan (1) Schizophrenia: Status: Acute Code(s): F20.9 - Schizophrenia, unspecified Plan Mr. Adame is 63 y/o male with hx schizophrenia who [facility] due to minimal oral intake, paranoid delusions, causing severe failure to thrive since 04/2023. He had to be sent out for medical treatment several times due to dehydration, cholelithiasis, ultimately, [facility] as they reported pt needs more medical support. He has been at [facility] since 09/06/2023 pending placement in psychiatric admission. records indicate that pt had minimal response to medications such as olanzapine, abilify, seroquel. He even had clozaril trial but had a marked change in mentation that resolved once this medication was discontinued. Pt also noted to have dysphasia and on chopped food. Will order ST to assess food consistency need. Will also order nutritional consult. Pt already declined medications, food, labs without showing understanding of risks versus benefits. Consider ECT,going for guardianship as pt not able to care for himself. Will also add DVT prophylaxis- if mobility is limited. PLAN 11/02 did not eat or drink anything. minimally eating or drinking. 11/03 he had 3 ensures today, however, dark urine, UA and CMP ordered. BP low but stable. 11/05 continue same treatment 11/06 continue same treatment 11/07 continue tx. pt refuses medication, appears internally preoccupied, catatonic like features, may consider ECT as it may have significant impact on overall functioning if his presentation is not mostly negative symptoms of schizophrenia. 11/08 may consider revoking CV, consider ECT. [facility] had filed for guardianship. 11/09 cv revoke, sect 01/09 filed. 11/10 continue tx. 11/11 continue tx. 11/13/2023 Would benefit from long-acting injectable consider ECT ck tsh chem profile 11/14/2023 Given injury intravenous fluids recheck labs in the morning strongly need to consider quarter ordered treatment plan for medical safety patient denies wanting to he does report dysphagia GI consult ordered 11/14 continue tx. 11/15 continue tx. 11/16 significant weight loss of more than 10% internally preoccupied. no insight into inability to care for himself. 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 pending court hearing. 11/17 continue tx. 11/18 continue tx. 11/19: Continue current treatment and plan 11/20: Continue current regimen and plans 11/21 continue tx. continue to monitor closely oral intake, especifically ensure 11/22 increase paliperidone 6mg po qhs. trial of ativan for catatonic like features 11/[address] hearing. 11/24 court hearing held- petition endorsed with ECT as primary tx. Reason for continued inpatient stay Substantial Risk for: inability to function Time Spent With Patient Time: Total time managing care of this patient today ____ minutes.
--- NOTE | 2023-11-26 10:07 | HO.PSYCHPN ---
Subjective Subjective Date of Service: 11/26/23 Reason For Visit: Schizoaffective disorder, unspecified type Subjective Notes: Section 8 Interim History: Pt slept most of the night. Minimally engaging with peers or staff. He reports he feels tired. Pt in bed, not going out of room at least once. He denies SI/HI. takes medications as prescribed. ensure needs to be offered, as he will not ask for it. some improvement in weight. Review of Systems Review of Systems General: No fevers, malaise, unintentional weight loss HEENT: No blurred vision, diplopia. No sore throat, nasal congestion, rhinorrhea, sinus pain, ear pain Cardiovascular: No chest pain, palpitations, or leg edema Respiratory: No shortness of breath, wheezing, cough GI: No abdominal pain, nausea, vomiting, diarrhea, constipation, melena, hematochezia : No dysuria, hematuria, increased urinary frequency, decreased urinary output MSK: No myalgia, back pain Neuro: No headaches, weakness, paresthesias Skin: No rashes or lesions Pt affect flat, unengaged in interview. Question reliability of ros Yes all other systems are reviewed and are negative Mental Status Exam Mental Status Exam Narrative: Appearance: cachectic, malnourished, in NAD Behavior: guarded, not engaging in any conversation Psychomotor: no agitation or retardation noted Speech: mostly clear, regular rate, minimally spontaneous TP: wanting to rest TC: feeling tired Mood: tired Affect: constricted SI: denies HI:denies VH/AH: appears internally preoccupied Delusions: thinks here because family want him here Insight/judgment: impaired x 2. memory/cog: alert, oriented to place, not situation. pending MOCA. Diagnostics Vital Signs (24Hr): Vital Signs - 24 hr 11/25/23 20:00 Temperature 97.3 F Pulse Rate 100 Respiratory Rate 20 Blood Pressure 116/81 Pulse Oximetry 98 Oxygen Delivery Method Room Air BMI result Body Mass Index 18.1 Labs 11/14/23 15:20 11/16/23 09:10 Labs: Laboratory Results - last 48 hr 11/24/23 19:27 POC Glucose 108 Imaging Radiology Impressions: ITS Impressions Chest X-Ray 11/14/23 15:16 IMPRESSION: No evidence of acute disease. No pulmonary mass, pneumonia or pleural effusion. Medications Medications Current Medications Acetaminophen (Acetaminophen 325 Mg Tablet) 650 mg PO Q6H PRN PRN Reason: Headache/Pain Mild Scale (1-3) Last Admin: 11/09/23 21:01 Dose: 650 mg Al Hydroxide/Mg Hydroxide (Magnesium Hydrox/Alum Hydrox 30 Ml Oral.Susp) 30 ml PO Q6H PRN PRN Reason: Heartburn/Nausea Last Admin: 10/31/23 23:58 Dose: 30 ml Aripiprazole (Aripiprazole 5 Mg Tablet) 5 mg PO DAILY@1800 [facility] Last Admin: 11/25/23 17:35 Dose: 5 mg Famotidine (Famotidine 20 Mg Tablet) 20 mg PO BID@0630,1630 [facility] Last Admin: 11/26/23 05:59 Dose: 20 mg Loperamide HCl (Loperamide Hcl 2 Mg Capsule) 2 mg PO Q4H PRN PRN Reason: loose stools Last Admin: 11/12/23 11:09 Dose: 2 mg Lorazepam (Lorazepam 0.5 Mg Tablet) 0.5 mg PO BEDTIME [facility] Last Admin: 11/25/23 20:22 Dose: 0.5 mg Magnesium Hydroxide (Milk Of Magnesia 30 Ml Oral.Susp) 30 ml PO DAILY PRN PRN Reason: Constipation Mirtazapine (Mirtazapine 15 Mg Tablet) 15 mg PO BEDTIME [facility] Last Admin: 11/25/23 20:22 Dose: 15 mg Nystatin (Nystatin Oral Susp 500,000 Unit/5 Ml Oral.Susp) 500,000 unit PO TID [facility] Last Admin: 11/25/23 20:22 Dose: 500,000 unit Ondansetron HCl (Ondansetron Odt 4 Mg Tab.Rapdis) 4 mg TRANSLINGU Q8H PRN PRN Reason: Nausea and Vomiting Last Admin: 11/16/23 16:27 Dose: 4 mg Paliperidone (Paliperidone Er 6 Mg Tab.Er.24) 6 mg PO BEDTIME [facility] Last Admin: 11/25/23 20:22 Dose: 6 mg Senna (Sennosides 8.6 Mg Tablet) 8.6 mg PO BEDTIME [facility] Last Admin: 11/16/23 21:34 Dose: 8.6 mg Trazodone HCl (Trazodone Hcl 50 Mg Tablet) 50 mg PO BEDTIME PRN PRN Reason: Insomnia Last Admin: 11/24/23 20:26 Dose: 50 mg Allergies Allergies Allergy/AdvReac Type Severity Reaction Status Date / Time omeprazole Allergy Unknown Verified 10/30/23 00:09 Assessment & Plan Assessment & Plan (1) Schizophrenia: Status: Acute Code(s): F20.9 - Schizophrenia, unspecified Plan Mr. Adame is 63 y/o male with hx schizophrenia who has been admitted [facility] for [facility] due to minimal oral intake, paranoid delusions, causing severe failure to thrive since 04/2023. He had to be sent out for medical treatment several times due to dehydration, cholelithiasis, ultimately, psychiatric facility [facility] did not take him back as they reported pt needs more medical support. He has been at [facility] since 09/06/2023 pending placement in psychiatric admission. records indicate that pt had minimal response to medications such as olanzapine, abilify, seroquel. He even had clozaril trial but had a marked change in mentation that resolved once this medication was discontinued. Pt also noted to have dysphasia and on chopped food. Will order ST to assess food consistency need. Will also order nutritional consult. Pt already declined medications, food, labs without showing understanding of risks versus benefits. Consider ECT,going for guardianship as pt not able to care for himself. Will also add DVT prophylaxis- if mobility is limited. PLAN 11/02 did not eat or drink anything. minimally eating or drinking. 11/03 he had 3 ensures today, however, dark urine, UA and CMP ordered. BP low but stable. 11/05 continue same treatment 11/06 continue same treatment 11/07 continue tx. pt refuses medication, appears internally preoccupied, catatonic like features, may consider ECT as it may have significant impact on overall functioning if his presentation is not mostly negative symptoms of schizophrenia. 11/08 may consider revoking CV, consider ECT. [facility] had filed for guardianship. 11/09 cv revoke, sect 01/09 filed. 11/10 continue tx. 11/11 continue tx. 11/13/2023 Would benefit from long-acting injectable consider ECT ck tsh chem profile 11/14/2023 Given injury intravenous fluids recheck labs in the morning strongly need to consider quarter ordered treatment plan for medical safety patient denies wanting to he does report dysphagia GI consult ordered 11/14 continue tx. 11/15 continue tx. 11/16 significant weight loss of more than 10% internally preoccupied. no insight into inability to care for himself. 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 pending court hearing. 11/17 continue tx. 11/18 continue tx. 11/19: Continue current treatment and plan 11/20: Continue current regimen and plans 11/21 continue tx. continue to monitor closely oral intake, especifically ensure 11/22 increase paliperidone 6mg po qhs. trial of ativan for catatonic like features 11/[address] hearing. 11/24 court hearing held- petition endorsed with ECT as primary tx. 11/25 continue tx. Reason for continued inpatient stay Substantial Risk for: inability to function Time Spent With Patient Time: Total time managing care of this patient today ____ minutes.
[2023-11-26 10:21] VITALS: BMI 18.1
--- NOTE | 2023-11-26 11:19 | MHC.CLN ---
F/U DIET=REGULAR. CONTINUES TO ACCEPT ENSURE SUPPLEMENT. INTAKE AT MEALS VARIABLE AND WILL CONSUME SOME FOOD AT MEALS. PROVIDER NOTED THAT ADMISSION WEIGHT ON 10/29/23 WAS REPORTED AND NOT ACTUAL WEIGHT. USING ACTUAL WEIGHT ON 11/04/23=51.437 KG, PATIENT SHOWS FAVORABLE 4.8% WEIGHT GAIN X 3 WEEKS. CONTINUE REGULAR DIET WITH ENSURE TID. SUPPLEMENT PROVIDES 1050 KCALS, 60 G PROTEIN. ENCOURAGE ADDITIONAL SNACKS AND SUPPLEMENTS FROM UNIT KITCHEN. FOLLOW FOR PLAN OF CARE AND PO INTAKE. ENCOURAGE INTAKE ABLE. RD TO FOLLOW WEEKLY.
[2023-11-26] MEDS: Nystatin Oral Susp 500,000 UNIT/5 ML ORAL.SUSP 500000 UNIT PO ×2 (14:53→21:06)
[2023-11-26] MEDS: ARIPiprazole 5 MG TABLET PO (17:27)
[2023-11-26 20:00] VITALS: BP 106/77; PULSE 96; RESP 16; TEMP 36.6; O2SAT 95
[2023-11-26] MEDS: Paliperidone ER 6 MG TAB.ER.24 PO (21:06)
[2023-11-26] MEDS: Mirtazapine 15 MG TABLET PO (21:06)
[2023-11-26] MEDS: LORazepam 0.5 MG TABLET PO (21:07)
[2023-11-27] MEDS: Famotidine 20 MG TABLET PO ×2 (06:11→17:07)
[2023-11-27 08:00] VITALS: BP 92/54; PULSE 102; RESP 18; TEMP 36.5; O2SAT 95
[2023-11-27] MEDS: Nystatin Oral Susp 500,000 UNIT/5 ML ORAL.SUSP 500000 UNIT PO ×3 (08:31→20:45)
--- NOTE | 2023-11-27 12:37 | P.PNPSI_ITS ---
Subjective Subjective Date of Service: 11/27/23 Reason For Visit: Schizoaffective disorder, unspecified type Interim History: Pt slept most of the night. Minimally engaging with peers or staff. He reports he feels tired. Pt in bed, not going out of room at least once. He denies SI/HI. takes medications as prescribed. Review of Systems Review of Systems General: No fevers, malaise, unintentional weight loss HEENT: No blurred vision, diplopia. No sore throat, nasal congestion, rhinorrhea, sinus pain, ear pain Cardiovascular: No chest pain, palpitations, or leg edema Respiratory: No shortness of breath, wheezing, cough GI: No abdominal pain, nausea, vomiting, diarrhea, constipation, melena, hematochezia : No dysuria, hematuria, increased urinary frequency, decreased urinary output MSK: No myalgia, back pain Neuro: No headaches, weakness, paresthesias Skin: No rashes or lesions Pt affect flat, unengaged in interview. Question reliability of ros Yes all other systems are reviewed and are negative Mental Status Exam Mental Status Exam Narrative: Appearance: cachectic, malnourished, in NAD Behavior: guarded, not engaging in any conversation Psychomotor: no agitation or retardation noted Speech: mostly clear, regular rate, minimally spontaneous TP: wanting to rest TC: feeling tired Mood: tired Affect: constricted SI: denies HI:denies VH/AH: appears internally preoccupied Delusions: thinks here because family want him here Insight/judgment: impaired x 2. memory/cog: alert, oriented to place, not situation. pending MOCA. Patient Appearance: Unkempt Patient Orientation: Person Level of Consciousness: Awake Patient Behavior: Guarded and Passive Mood Description: Withdrawn Affect Description: Constricted Patient Cognition Impaired: Yes Ability to Follow Directions: Good Speech Pattern: Clear Diagnostics Vital Signs (24Hr): Vital Signs - 24 hr 11/26/23 20:00 11/27/23 08:00 Temperature 97.9 F 97.7 F Pulse Rate 96 102 H Respiratory Rate 16 18 Blood Pressure 106/77 92/54 L Pulse Oximetry 95 95 Oxygen Delivery Method Room Air BMI result Body Mass Index 18.1 Labs 11/14/23 15:20 11/16/23 09:10 Imaging Radiology Impressions: ITS Impressions Chest X-Ray 11/14/23 15:16 IMPRESSION: No evidence of acute disease. No pulmonary mass, pneumonia or pleural effusion. Medications Medications Current Medications Acetaminophen (Acetaminophen 325 Mg Tablet) 650 mg PO Q6H PRN PRN Reason: Headache/Pain Mild Scale (1-3) Last Admin: 11/09/23 21:01 Dose: 650 mg Al Hydroxide/Mg Hydroxide (Magnesium Hydrox/Alum Hydrox 30 Ml Oral.Susp) 30 ml PO Q6H PRN PRN Reason: Heartburn/Nausea Last Admin: 10/31/23 23:58 Dose: 30 ml Aripiprazole (Aripiprazole 5 Mg Tablet) 5 mg PO DAILY@1800 [facility] Last Admin: 11/26/23 17:27 Dose: 5 mg Famotidine (Famotidine 20 Mg Tablet) 20 mg PO BID@0630,1630 [facility] Last Admin: 11/27/23 06:11 Dose: 20 mg Loperamide HCl (Loperamide Hcl 2 Mg Capsule) 2 mg PO Q4H PRN PRN Reason: loose stools Last Admin: 11/12/23 11:09 Dose: 2 mg Lorazepam (Lorazepam 0.5 Mg Tablet) 0.5 mg PO BEDTIME [facility] Last Admin: 11/26/23 21:07 Dose: 0.5 mg Magnesium Hydroxide (Milk Of Magnesia 30 Ml Oral.Susp) 30 ml PO DAILY PRN PRN Reason: Constipation Mirtazapine (Mirtazapine 15 Mg Tablet) 15 mg PO BEDTIME [facility] Last Admin: 11/26/23 21:06 Dose: 15 mg Nystatin (Nystatin Oral Susp 500,000 Unit/5 Ml Oral.Susp) 500,000 unit PO TID [facility] Last Admin: 11/27/23 08:31 Dose: 500,000 unit Ondansetron HCl (Ondansetron Odt 4 Mg Tab.Rapdis) 4 mg TRANSLINGU Q8H PRN PRN Reason: Nausea and Vomiting Last Admin: 11/16/23 16:27 Dose: 4 mg Paliperidone (Paliperidone Er 6 Mg Tab.Er.24) 6 mg PO BEDTIME [facility] Last Admin: 11/26/23 21:06 Dose: 6 mg Senna (Sennosides 8.6 Mg Tablet) 8.6 mg PO BEDTIME [facility] Last Admin: 11/16/23 21:34 Dose: 8.6 mg Trazodone HCl (Trazodone Hcl 50 Mg Tablet) 50 mg PO BEDTIME PRN PRN Reason: Insomnia Last Admin: 11/24/23 20:26 Dose: 50 mg Allergies Allergies Allergy/AdvReac Type Severity Reaction Status Date / Time omeprazole Allergy Unknown Verified 10/30/23 00:09 Assessment & Plan Assessment & Plan (1) Schizophrenia: Status: Acute Code(s): F20.9 - Schizophrenia, unspecified Plan Mr. Adame is 63 y/o male with hx schizophrenia who has [facility] due to minimal oral intake, paranoid delusions, causing severe failure to thrive since 04/2023. He had to be sent out for medical treatment several times due to dehydration, cholelithiasis, ultimately, psychiatric [facility] not [facility] as they reported pt needs more medical support. He has been at [facility] since 09/06/2023 pending placement in psychiatric admission. records indicate that pt had minimal response to medications such as olanzapine, abilify, seroquel. He even had clozaril trial but had a marked change in mentation that resolved once this medication was discontinued. Pt also noted to have dysphasia and on chopped food. Will order ST to assess food consistency need. Will also order nutritional consult. Pt already declined medications, food, labs without showing understanding of risks versus benefits. Consider ECT,going for guardianship as pt not able to care for himself. Will also add DVT prophylaxis- if mobility is limited. PLAN 11/02 did not eat or drink anything. minimally eating or drinking. 11/03 he had 3 ensures today, however, dark urine, UA and CMP ordered. BP low but stable. 11/05 continue same treatment 11/06 continue same treatment 11/07 continue tx. pt refuses medication, appears internally preoccupied, catatonic like features, may consider ECT as it may have significant impact on overall functioning if his presentation is not mostly negative symptoms of schizophrenia. 11/08 may consider revoking CV, consider ECT. [facility] had filed for guardianship. 11/09 cv revoke, sect 01/09 filed. 11/10 continue tx. 11/11 continue tx. 11/13/2023 Would benefit from long-acting injectable consider ECT ck tsh chem profile 11/14/2023 Given injury intravenous fluids recheck labs in the morning strongly need to consider quarter ordered treatment plan for medical safety patient denies wanting to he does report dysphagia GI consult ordered 11/14 continue tx. 11/15 continue tx. 11/16 significant weight loss of more than 10% internally preoccupied. no insight into inability to care for himself. technical services coordinator following him. pending court hearing. 11/17 continue tx. 11/18 continue tx. 11/19: Continue current treatment and plan 11/20: Continue current regimen and plans 11/21 continue tx. continue to monitor closely oral intake, especifically ensure 11/22 increase paliperidone 6mg po qhs. trial of ativan for catatonic like features 11/[address] hearing. 11/24 court hearing held- petition endorsed with ECT as primary tx. 11/25 continue tx. 11/26 continue tx plan Reason for continued inpatient stay Substantial Risk for: inability to function Time Spent With Patient Time: Total time managing care of this patient today ____ minutes.
[2023-11-27] MEDS: ARIPiprazole 5 MG TABLET PO (17:07)
[2023-11-27 20:00] VITALS: BP 101/65; PULSE 103; RESP 18; TEMP 36.2; O2SAT 96
[2023-11-27] MEDS: LORazepam 0.5 MG TABLET PO (20:45)
[2023-11-27] MEDS: Mirtazapine 15 MG TABLET PO (20:45)
[2023-11-27] MEDS: Paliperidone ER 6 MG TAB.ER.24 PO (20:45)
[2023-11-28] MEDS: Famotidine 20 MG TABLET PO ×2 (06:18→17:16)
[2023-11-28 08:00] VITALS: BP 97/61; PULSE 105; RESP 18; TEMP 37.1; O2SAT 95
[2023-11-28] MEDS: Nystatin Oral Susp 500,000 UNIT/5 ML ORAL.SUSP 500000 UNIT PO ×3 (08:25→20:20)
[2023-11-28] MEDS: ARIPiprazole 5 MG TABLET PO (17:16)
--- NOTE | 2023-11-28 17:42 | P.PNPSI_ITS ---
Subjective Subjective Date of Service: 11/28/23 Reason For Visit: Schizoaffective disorder, unspecified type Interim History: Pt slept most of the night. Minimally engaging with peers or staff. He reports he feels tired. Pt is getting out of bed more. Eating meals He denies SI/HI. takes medications as prescribed. Side effects from medications: No Review of Systems Review of Systems General: No fevers, malaise, unintentional weight loss HEENT: No blurred vision, diplopia. No sore throat, nasal congestion, rhinorrhea, sinus pain, ear pain Cardiovascular: No chest pain, palpitations, or leg edema Respiratory: No shortness of breath, wheezing, cough GI: No abdominal pain, nausea, vomiting, diarrhea, constipation, melena, hematochezia : No dysuria, hematuria, increased urinary frequency, decreased urinary output MSK: No myalgia, back pain Neuro: No headaches, weakness, paresthesias Skin: No rashes or lesions Pt affect flat, unengaged in interview. Question reliability of ros Yes all other systems are reviewed and are negative Mental Status Exam Mental Status Exam Narrative: Appearance: cachectic, malnourished, in NAD Behavior: guarded, not engaging in any conversation Psychomotor: no agitation or retardation noted Speech: mostly clear, regular rate, minimally spontaneous TP: wanting to rest TC: feeling tired Mood: tired Affect: constricted SI: denies HI:denies VH/AH: appears internally preoccupied Delusions: thinks here because family want him here Insight/judgment: impaired x 2. memory/cog: alert, oriented to place, not situation. pending MOCA. Patient Appearance: Unkempt Patient Orientation: Person Level of Consciousness: Awake Patient Behavior: Guarded and Passive Mood Description: Withdrawn Affect Description: Constricted Patient Cognition Impaired: Yes Ability to Follow Directions: Good Speech Pattern: Clear Diagnostics Vital Signs (24Hr): Vital Signs - 24 hr 11/27/23 20:00 11/28/23 08:00 Temperature 97.2 F 98.7 F Pulse Rate 103 H 105 H Respiratory Rate 18 18 Blood Pressure 101/65 97/61 Pulse Oximetry 96 95 Oxygen Delivery Method Room Air Room Air BMI result Body Mass Index 18.1 Labs 11/14/23 15:20 11/16/23 09:10 Imaging Radiology Impressions: ITS Impressions Chest X-Ray 11/14/23 15:16 IMPRESSION: No evidence of acute disease. No pulmonary mass, pneumonia or pleural effusion. Medications Medications Current Medications Acetaminophen (Acetaminophen 325 Mg Tablet) 650 mg PO Q6H PRN PRN Reason: Headache/Pain Mild Scale (1-3) Last Admin: 11/09/23 21:01 Dose: 650 mg Al Hydroxide/Mg Hydroxide (Magnesium Hydrox/Alum Hydrox 30 Ml Oral.Susp) 30 ml PO Q6H PRN PRN Reason: Heartburn/Nausea Last Admin: 10/31/23 23:58 Dose: 30 ml Aripiprazole (Aripiprazole 5 Mg Tablet) 5 mg PO DAILY@1800 [facility] Last Admin: 11/28/23 17:16 Dose: 5 mg Famotidine (Famotidine 20 Mg Tablet) 20 mg PO BID@0630,1630 [facility] Last Admin: 11/28/23 17:16 Dose: 20 mg Loperamide HCl (Loperamide Hcl 2 Mg Capsule) 2 mg PO Q4H PRN PRN Reason: loose stools Last Admin: 11/12/23 11:09 Dose: 2 mg Lorazepam (Lorazepam 0.5 Mg Tablet) 0.5 mg PO BEDTIME [facility] Last Admin: 11/27/23 20:45 Dose: 0.5 mg Magnesium Hydroxide (Milk Of Magnesia 30 Ml Oral.Susp) 30 ml PO DAILY PRN PRN Reason: Constipation Mirtazapine (Mirtazapine 15 Mg Tablet) 15 mg PO BEDTIME [facility] Last Admin: 11/27/23 20:45 Dose: 15 mg Nystatin (Nystatin Oral Susp 500,000 Unit/5 Ml Oral.Susp) 500,000 unit PO TID [facility] Last Admin: 11/28/23 15:10 Dose: 500,000 unit Ondansetron HCl (Ondansetron Odt 4 Mg Tab.Rapdis) 4 mg TRANSLINGU Q8H PRN PRN Reason: Nausea and Vomiting Last Admin: 11/16/23 16:27 Dose: 4 mg Paliperidone (Paliperidone Er 6 Mg Tab.Er.24) 6 mg PO BEDTIME [facility] Last Admin: 11/27/23 20:45 Dose: 6 mg Senna (Sennosides 8.6 Mg Tablet) 8.6 mg PO BEDTIME [facility] Last Admin: 11/16/23 21:34 Dose: 8.6 mg Trazodone HCl (Trazodone Hcl 50 Mg Tablet) 50 mg PO BEDTIME PRN PRN Reason: Insomnia Last Admin: 11/24/23 20:26 Dose: 50 mg Allergies Allergies Allergy/AdvReac Type Severity Reaction Status Date / Time omeprazole Allergy Unknown Verified 10/30/23 00:09 Assessment & Plan Assessment & Plan (1) Schizophrenia: Status: Acute Code(s): F20.9 - Schizophrenia, unspecified Plan Mr. Adame is 63 y/o male with hx schizophrenia who has [facility] due to minimal oral intake, paranoid delusions, causing severe failure to thrive since 04/2023. He had to be sent out for medical treatment several times due to dehydration, cholelithiasis, ultimately, [facility] as they reported pt needs more medical support. He has been at [facility] since 09/06/2023 pending placement in psychiatric admission. records indicate that pt had minimal response to medications such as olanzapine, abilify, seroquel. He even had clozaril trial but had a marked change in mentation that resolved once this medication was discontinued. Pt also noted to have dysphasia and on chopped food. Will order ST to assess food consistency need. Will also order nutritional consult. Pt already declined medications, food, labs without showing understanding of risks versus benefits. Consider ECT,going for guardianship as pt not able to care for himself. Will also add DVT prophylaxis- if mobility is limited. PLAN 11/02 did not eat or drink anything. minimally eating or drinking. 11/03 he had 3 ensures today, however, dark urine, UA and CMP ordered. BP low but stable. 11/05 continue same treatment 11/06 continue same treatment 11/07 continue tx. pt refuses medication, appears internally preoccupied, catatonic like features, may consider ECT as it may have significant impact on overall functioning if his presentation is not mostly negative symptoms of schizophrenia. 11/08 may consider revoking CV, consider ECT. [facility] had filed for guardianship. 11/09 cv revoke, sect 01/09 filed. 11/10 continue tx. 11/11 continue tx. 11/13/2023 Would benefit from long-acting injectable consider ECT ck tsh chem profile 11/14/2023 Given injury intravenous fluids recheck labs in the morning strongly need to consider quarter ordered treatment plan for medical safety patient denies wanting to he does report dysphagia GI consult ordered 11/14 continue tx. 11/15 continue tx. 11/16 significant weight loss of more than 10% internally preoccupied. no insight into inability to care for himself. outbound sales consultant following him. pending court hearing. 11/17 continue tx. 11/18 continue tx. 11/19: Continue current treatment and plan 11/20: Continue current regimen and plans 11/21 continue tx. continue to monitor closely oral intake, especifically ensure 11/22 increase paliperidone 6mg po qhs. trial of ativan for catatonic like features 11/[address] hearing. 11/24 court hearing held- petition endorsed with ECT as primary tx. 11/25 continue tx. 11/26 continue tx plan 11/27 continue tx Reason for continued inpatient stay Substantial Risk for: inability to function Time Spent With Patient Time: Total time managing care of this patient today ____ minutes.
[2023-11-28 19:51] VITALS: BP 87/60; PULSE 84; RESP 16; TEMP 37.3; O2SAT 95
[2023-11-28] MEDS: Mirtazapine 15 MG TABLET PO (20:20)
[2023-11-28] MEDS: Paliperidone ER 6 MG TAB.ER.24 PO (20:20)
[2023-11-28] MEDS: LORazepam 0.5 MG TABLET PO (20:20)
[2023-11-28] MEDS: traZODone HCL 50 MG TABLET PO (20:20)
[2023-11-29] MEDS: Famotidine 20 MG TABLET PO ×2 (06:30→16:23)
[2023-11-29 07:55] VITALS: BP 81/55; PULSE 85; RESP 16; TEMP 36.3; O2SAT 94
[2023-11-29] MEDS: Nystatin Oral Susp 500,000 UNIT/5 ML ORAL.SUSP 500000 UNIT PO ×2 (08:26→20:29)
--- NOTE | 2023-11-29 09:57 | P.PNPSI_ITS ---
Subjective Subjective Date of Service: 11/29/23 Reason For Visit: Schizoaffective disorder, unspecified type Interim History: Pt slept most of the night. Minimally engaging with peers or staff. He reports he feels tired. Pt not OOB today. Not attending to hygiene Eating meals He denies SI/HI. takes medications as prescribed. Medication Compliance: Yes Side effects from medications: No Attending Groups: No Review of Systems Medical Review of Systems: unchanged Review of Systems Review of Systems General: No fevers, malaise, unintentional weight loss HEENT: No blurred vision, diplopia. No sore throat, nasal congestion, rhinorrhea, sinus pain, ear pain Cardiovascular: No chest pain, palpitations, or leg edema Respiratory: No shortness of breath, wheezing, cough GI: No abdominal pain, nausea, vomiting, diarrhea, constipation, melena, hematochezia : No dysuria, hematuria, increased urinary frequency, decreased urinary output MSK: No myalgia, back pain Neuro: No headaches, weakness, paresthesias Skin: No rashes or lesions Pt affect flat, unengaged in interview. Question reliability of ros Yes all other systems are reviewed and are negative Mental Status Exam Mental Status Exam Narrative: Appearance: cachectic, malnourished, in NAD Behavior: guarded, one word answers Psychomotor: no agitation or retardation noted Speech: mostly clear, regular rate, minimally spontaneous TP: wanting to rest TC: feeling tired Mood: tired Affect: constricted SI: denies HI:denies VH/AH: appears internally preoccupied Delusions: thinks here because family want him here Insight/judgment: impaired x 2. memory/cog: alert, oriented to place, not situation. pending MOCA. Patient Appearance: Unkempt Patient Orientation: Person Level of Consciousness: Awake Patient Behavior: Guarded and Passive Mood Description: Withdrawn Affect Description: Constricted Patient Cognition Impaired: Yes Ability to Follow Directions: Good Speech Pattern: Clear Judgement: Poor Diagnostics Vital Signs (24Hr): Vital Signs - 24 hr 11/28/23 19:51 11/29/23 07:55 Temperature 99.1 F 97.3 F Pulse Rate 84 85 Respiratory Rate 16 16 Blood Pressure 87/60 L 81/55 L Pulse Oximetry 95 94 Oxygen Delivery Method Room Air Room Air BMI result Body Mass Index 18.1 Labs 11/14/23 15:20 11/16/23 09:10 Imaging Radiology Impressions: ITS Impressions Chest X-Ray 11/14/23 15:16 IMPRESSION: No evidence of acute disease. No pulmonary mass, pneumonia or pleural effusion. Medications Medications Current Medications Acetaminophen (Acetaminophen 325 Mg Tablet) 650 mg PO Q6H PRN PRN Reason: Headache/Pain Mild Scale (1-3) Last Admin: 11/09/23 21:01 Dose: 650 mg Al Hydroxide/Mg Hydroxide (Magnesium Hydrox/Alum Hydrox 30 Ml Oral.Susp) 30 ml PO Q6H PRN PRN Reason: Heartburn/Nausea Last Admin: 10/31/23 23:58 Dose: 30 ml Aripiprazole (Aripiprazole 5 Mg Tablet) 5 mg PO DAILY@1800 [facility] Last Admin: 11/28/23 17:16 Dose: 5 mg Famotidine (Famotidine 20 Mg Tablet) 20 mg PO BID@0630,1630 [facility] Last Admin: 11/29/23 06:30 Dose: 20 mg Loperamide HCl (Loperamide Hcl 2 Mg Capsule) 2 mg PO Q4H PRN PRN Reason: loose stools Last Admin: 11/12/23 11:09 Dose: 2 mg Lorazepam (Lorazepam 0.5 Mg Tablet) 0.5 mg PO BEDTIME [facility] Last Admin: 11/28/23 20:20 Dose: 0.5 mg Magnesium Hydroxide (Milk Of Magnesia 30 Ml Oral.Susp) 30 ml PO DAILY PRN PRN Reason: Constipation Mirtazapine (Mirtazapine 15 Mg Tablet) 15 mg PO BEDTIME [facility] Last Admin: 11/28/23 20:20 Dose: 15 mg Nystatin (Nystatin Oral Susp 500,000 Unit/5 Ml Oral.Susp) 500,000 unit PO TID [facility] Last Admin: 11/29/23 08:26 Dose: 500,000 unit Ondansetron HCl (Ondansetron Odt 4 Mg Tab.Rapdis) 4 mg TRANSLINGU Q8H PRN PRN Reason: Nausea and Vomiting Last Admin: 11/16/23 16:27 Dose: 4 mg Paliperidone (Paliperidone Er 6 Mg Tab.Er.24) 6 mg PO BEDTIME [facility] Last Admin: 11/28/23 20:20 Dose: 6 mg Senna (Sennosides 8.6 Mg Tablet) 8.6 mg PO BEDTIME [facility] Last Admin: 11/16/23 21:34 Dose: 8.6 mg Trazodone HCl (Trazodone Hcl 50 Mg Tablet) 50 mg PO BEDTIME PRN PRN Reason: Insomnia Last Admin: 11/28/23 20:20 Dose: 50 mg Allergies Allergies Allergy/AdvReac Type Severity Reaction Status Date / Time omeprazole Allergy Unknown Verified 10/30/23 00:09 Assessment & Plan Assessment & Plan (1) Schizophrenia: Status: Acute Code(s): F20.9 - Schizophrenia, unspecified Plan Mr. Adame is 63 y/o male with hx schizophrenia who has [facility] due to minimal oral intake, paranoid delusions, causing severe failure to thrive since 04/2023. He had to be sent out for medical treatment several times due to dehydration, cholelithiasis, ultimately, psychiatric facility [facility] did not take him back as they reported pt needs more medical support. He has been at [facility] since 09/06/2023 pending placement in psychiatric admission. records indicate that pt had minimal response to medications such as olanzapine, abilify, seroquel. He even had clozaril trial but had a marked change in mentation that resolved once this medication was discontinued. Pt also noted to have dysphasia and on chopped food. Will order ST to assess food consistency need. Will also order nutritional consult. Pt already declined medications, food, labs without showing understanding of risks versus benefits. Consider ECT,going for guardianship as pt not able to care for himself. Will also add DVT prophylaxis- if mobility is limited. PLAN 11/02 did not eat or drink anything. minimally eating or drinking. 11/03 he had 3 ensures today, however, dark urine, UA and CMP ordered. BP low but stable. 11/05 continue same treatment 11/06 continue same treatment 11/07 continue tx. pt refuses medication, appears internally preoccupied, catatonic like features, may consider ECT as it may have significant impact on overall functioning if his presentation is not mostly negative symptoms of schizophrenia. 11/08 may consider revoking CV, consider ECT. [facility] had filed for guardianship. 11/09 cv revoke, sect 01/09 filed. 11/10 continue tx. 11/11 continue tx. 11/13/2023 Would benefit from long-acting injectable consider ECT ck tsh chem profile 11/14/2023 Given injury intravenous fluids recheck labs in the morning strongly need to consider quarter ordered treatment plan for medical safety patient denies wanting to he does report dysphagia GI consult ordered 11/14 continue tx. 11/15 continue tx. 11/16 significant weight loss of more than 10% internally preoccupied. no insight into inability to care for himself. baggage handler following him. pending court hearing. 11/17 continue tx. 11/18 continue tx. 11/19: Continue current treatment and plan 11/20: Continue current regimen and plans 11/21 continue tx. continue to monitor closely oral intake, especifically ensure 11/22 increase paliperidone 6mg po qhs. trial of ativan for catatonic like features 11/[address] hearing. 11/24 court hearing held- petition endorsed with ECT as primary tx. 11/25 continue tx. 11/26 continue tx plan 11/27 continue tx 11/28 cont tx plan, encourage out of bed, meals fluids, shower Patient educated on: therapeutic strategies Reason for continued inpatient stay Substantial Risk for: harm to self and inability to function Time Spent With Patient Time: Total time managing care of this patient today ____ minutes.
[2023-11-29] MEDS: ARIPiprazole 5 MG TABLET PO (17:18)
[2023-11-29 20:00] VITALS: BP 82/53; PULSE 97; RESP 18; TEMP 36.7; O2SAT 95
[2023-11-29] MEDS: LORazepam 0.5 MG TABLET PO (20:29)
[2023-11-29] MEDS: Mirtazapine 15 MG TABLET PO (20:29)
[2023-11-29] MEDS: traZODone HCL 50 MG TABLET PO (20:30)
[2023-11-29] MEDS: Paliperidone ER 6 MG TAB.ER.24 PO (20:31)
[2023-11-30] MEDS: Famotidine 20 MG TABLET PO ×2 (06:11→17:26)
[2023-11-30 07:54] VITALS: BP 98/52; PULSE 87; RESP 16; TEMP 36.9; O2SAT 95
[2023-11-30] MEDS: Nystatin Oral Susp 500,000 UNIT/5 ML ORAL.SUSP 500000 UNIT PO ×3 (08:32→20:36)
--- NOTE | 2023-11-30 10:35 | HO.PSYCHPN ---
Subjective Subjective Date of Service: 11/30/23 Reason For Visit: Schizoaffective disorder, unspecified type Subjective Notes: Section 8 Interim History: Pt slept most of the night. Pt in bed. He reports feeling tired. He denies SI/HI. He denies depression, minimally engaging nor able to care for himself. He is taking medications as prescribed will order b12 and vit d. Review of Systems Review of Systems General: No fevers, malaise, unintentional weight loss HEENT: No blurred vision, diplopia. No sore throat, nasal congestion, rhinorrhea, sinus pain, ear pain Cardiovascular: No chest pain, palpitations, or leg edema Respiratory: No shortness of breath, wheezing, cough GI: No abdominal pain, nausea, vomiting, diarrhea, constipation, melena, hematochezia : No dysuria, hematuria, increased urinary frequency, decreased urinary output MSK: No myalgia, back pain Neuro: No headaches, weakness, paresthesias Skin: No rashes or lesions Pt affect flat, unengaged in interview. Question reliability of ros Yes all other systems are reviewed and are negative Mental Status Exam Mental Status Exam Narrative: Appearance: cachectic, malnourished, in NAD Behavior: guarded, one word answers Psychomotor: no agitation or retardation noted Speech: mostly clear, regular rate, minimally spontaneous TP: wanting to rest TC: feeling tired Mood: tired Affect: constricted SI: denies HI:denies VH/AH: appears internally preoccupied Delusions: thinks here because family want him here Insight/judgment: impaired x 2. memory/cog: alert, oriented to place, not situation. pending MOCA. Diagnostics Vital Signs (24Hr): Vital Signs - 24 hr 11/29/23 20:00 11/30/23 07:54 Temperature 98.1 F 98.5 F Pulse Rate 97 87 Respiratory Rate 18 16 Blood Pressure 82/53 L 98/52 L Pulse Oximetry 95 95 Oxygen Delivery Method Room Air Room Air BMI result Body Mass Index 18.1 Labs 11/14/23 15:20 11/16/23 09:10 Imaging Radiology Impressions: ITS Impressions Chest X-Ray 11/14/23 15:16 IMPRESSION: No evidence of acute disease. No pulmonary mass, pneumonia or pleural effusion. Medications Medications Current Medications Acetaminophen (Acetaminophen 325 Mg Tablet) 650 mg PO Q6H PRN PRN Reason: Headache/Pain Mild Scale (1-3) Last Admin: 11/09/23 21:01 Dose: 650 mg Al Hydroxide/Mg Hydroxide (Magnesium Hydrox/Alum Hydrox 30 Ml Oral.Susp) 30 ml PO Q6H PRN PRN Reason: Heartburn/Nausea Last Admin: 10/31/23 23:58 Dose: 30 ml Aripiprazole (Aripiprazole 5 Mg Tablet) 5 mg PO DAILY@1800 [facility] Last Admin: 11/29/23 17:18 Dose: 5 mg Famotidine (Famotidine 20 Mg Tablet) 20 mg PO BID@0630,1630 [facility] Last Admin: 11/30/23 06:11 Dose: 20 mg Loperamide HCl (Loperamide Hcl 2 Mg Capsule) 2 mg PO Q4H PRN PRN Reason: loose stools Last Admin: 11/12/23 11:09 Dose: 2 mg Lorazepam (Lorazepam 0.5 Mg Tablet) 0.5 mg PO BEDTIME [facility] Last Admin: 11/29/23 20:29 Dose: 0.5 mg Magnesium Hydroxide (Milk Of Magnesia 30 Ml Oral.Susp) 30 ml PO DAILY PRN PRN Reason: Constipation Mirtazapine (Mirtazapine 15 Mg Tablet) 15 mg PO BEDTIME [facility] Last Admin: 11/29/23 20:29 Dose: 15 mg Nystatin (Nystatin Oral Susp 500,000 Unit/5 Ml Oral.Susp) 500,000 unit PO TID [facility] Last Admin: 11/30/23 08:32 Dose: 500,000 unit Ondansetron HCl (Ondansetron Odt 4 Mg Tab.Rapdis) 4 mg TRANSLINGU Q8H PRN PRN Reason: Nausea and Vomiting Last Admin: 11/16/23 16:27 Dose: 4 mg Paliperidone (Paliperidone Er 6 Mg Tab.Er.24) 6 mg PO BEDTIME [facility] Last Admin: 11/29/23 20:31 Dose: 6 mg Senna (Sennosides 8.6 Mg Tablet) 8.6 mg PO BEDTIME [facility] Last Admin: 11/16/23 21:34 Dose: 8.6 mg Trazodone HCl (Trazodone Hcl 50 Mg Tablet) 50 mg PO BEDTIME PRN PRN Reason: Insomnia Last Admin: 11/29/23 20:30 Dose: 50 mg Allergies Allergies Allergy/AdvReac Type Severity Reaction Status Date / Time omeprazole Allergy Unknown Verified 10/30/23 00:09 Assessment & Plan Assessment & Plan (1) Schizophrenia: Status: Acute Code(s): F20.9 - Schizophrenia, unspecified Plan Mr. Adame is 63 y/o male with hx schizophrenia who has [facility] due to minimal oral intake, paranoid delusions, causing severe failure to thrive since 04/2023. He had to be sent out for medical treatment several times due to dehydration, cholelithiasis, ultimately, psychiatric facility [facility] did not take him back as they reported pt needs more medical support. He has been at [facility] since 09/06/2023 pending placement in psychiatric admission. records indicate that pt had minimal response to medications such as olanzapine, abilify, seroquel. He even had clozaril trial but had a marked change in mentation that resolved once this medication was discontinued. Pt also noted to have dysphasia and on chopped food. Will order ST to assess food consistency need. Will also order nutritional consult. Pt already declined medications, food, labs without showing understanding of risks versus benefits. Consider ECT,going for guardianship as pt not able to care for himself. Will also add DVT prophylaxis- if mobility is limited. PLAN 11/02 did not eat or drink anything. minimally eating or drinking. 11/03 he had 3 ensures today, however, dark urine, UA and CMP ordered. BP low but stable. 11/05 continue same treatment 11/06 continue same treatment 11/07 continue tx. pt refuses medication, appears internally preoccupied, catatonic like features, may consider ECT as it may have significant impact on overall functioning if his presentation is not mostly negative symptoms of schizophrenia. 11/08 may consider revoking CV, consider ECT. [facility] had filed for guardianship. 11/09 cv revoke, sect 01/09 filed. 11/10 continue tx. 11/11 continue tx. 11/13/2023 Would benefit from long-acting injectable consider ECT ck tsh chem profile 11/14/2023 Given injury intravenous fluids recheck labs in the morning strongly need to consider quarter ordered treatment plan for medical safety patient denies wanting to he does report dysphagia GI consult ordered 5/13 continue tx. 11/15 continue tx. 11/16 significant weight loss of more than 10% internally preoccupied. no insight into inability to care for himself. spice grinder following him. pending court hearing. 11/17 continue tx. 11/18 continue tx. 11/19: Continue current treatment and plan 11/20: Continue current regimen and plans 11/21 continue tx. continue to monitor closely oral intake, especifically ensure 11/22 increase paliperidone 6mg po qhs. trial of ativan for catatonic like features 11/[address] hearing. 11/24 court hearing held- petition endorsed with ECT as primary tx. 11/25 continue tx. 11/26 continue tx plan 11/27 continue tx 11/28 cont tx plan, encourage out of bed, meals fluids, shower 11/29 continue tx. ect tomorrow. b12 and vit d ordered. Reason for continued inpatient stay Substantial Risk for: inability to function Time Spent With Patient Time: Total time managing care of this patient today ____ minutes.
[2023-11-30 11:34] LABS: Vitamin D 25-OH Total 35.1 ng/mL (>30)
[2023-11-30 11:47] LABS: Folate 13.4 ng/mL (> or = 4.0); Vitamin B12 234 pg/mL (200-900)
[2023-11-30] MEDS: ARIPiprazole 5 MG TABLET PO (17:26)
[2023-11-30] MEDS: Mirtazapine 15 MG TABLET PO (20:36)
[2023-11-30] MEDS: Paliperidone ER 6 MG TAB.ER.24 PO (20:36)
[2023-11-30] MEDS: traZODone HCL 50 MG TABLET PO (20:37)
[2023-11-30 20:41] VITALS: BP 96/57; PULSE 78; TEMP 30.2; O2SAT 94
[2023-12-01] MEDS: Famotidine 20 MG TABLET PO ×2 (06:49→18:05)
[2023-12-01 08:00] VITALS: BP 100/63; PULSE 83; RESP 16; TEMP 37.2; O2SAT 95
[2023-12-01] MEDS: Nystatin Oral Susp 500,000 UNIT/5 ML ORAL.SUSP 500000 UNIT PO ×3 (08:40→21:19)
--- NOTE | 2023-12-01 12:47 | HO.PSYCHPN ---
Subjective Subjective Date of Service: 12/01/23 Reason For Visit: Schizoaffective disorder, unspecified type Subjective Notes: Section 7 and Section 8 Interim History: The nursing staff reported the patient had been hypoactive, he was scheduled to have ECT today but it was canceled because he ate at 01:00 in the morning he spent most of the time on his bed slept most of the night. On interview the patient reports no new symptoms he looks grossly disorganized. Mental Status Exam Mental Status Exam Patient Appearance: Unkempt Patient Orientation: Person Level of Consciousness: Awake Patient Behavior: Guarded and Passive Mood Description: Withdrawn Affect Description: Blunted Patient Cognition Impaired: Yes Ability to Follow Directions: Fair Speech Pattern: Impoverished Hallucinations: None Delusions: Paranoid Ideation Thought Process: Illogical, Distracted and Slowed Thinking Thought Content: positive for Poverty of Content and positive for Thought Blocking Judgement: Poor Diagnostics Vital Signs (24Hr): Vital Signs - 24 hr 11/30/23 20:41 12/01/23 08:00 Temperature 86.3 F L 98.9 F Pulse Rate 78 83 Respiratory Rate 16 Blood Pressure 96/57 L 100/63 Pulse Oximetry 94 95 Oxygen Delivery Method Room Air Room Air BMI result Body Mass Index 18.1 Labs 11/14/23 15:20 11/16/23 09:10 Labs: Laboratory Results - last 48 hr 11/30/23 10:51 Hold Purple Top SEE NOTE Vitamin B12 234 25-OH Vitamin D Total 35.1 Folate 13.4 Imaging Radiology Impressions: ITS Impressions Chest X-Ray 11/14/23 15:16 IMPRESSION: No evidence of acute disease. No pulmonary mass, pneumonia or pleural effusion. Medications Medications Current Medications Acetaminophen (Acetaminophen 325 Mg Tablet) 650 mg PO Q6H PRN PRN Reason: Headache/Pain Mild Scale (1-3) Last Admin: 11/09/23 21:01 Dose: 650 mg Al Hydroxide/Mg Hydroxide (Magnesium Hydrox/Alum Hydrox 30 Ml Oral.Susp) 30 ml PO Q6H PRN PRN Reason: Heartburn/Nausea Last Admin: 10/31/23 23:58 Dose: 30 ml Aripiprazole (Aripiprazole 5 Mg Tablet) 5 mg PO DAILY@1800 [facility] Last Admin: 11/30/23 17:26 Dose: 5 mg Famotidine (Famotidine 20 Mg Tablet) 20 mg PO BID@0630,1630 [facility] Last Admin: 12/01/23 06:49 Dose: 20 mg Loperamide HCl (Loperamide Hcl 2 Mg Capsule) 2 mg PO Q4H PRN PRN Reason: loose stools Last Admin: 11/12/23 11:09 Dose: 2 mg Lorazepam (Lorazepam 0.5 Mg Tablet) 0.5 mg PO BEDTIME [facility] Last Admin: 11/30/23 19:47 Dose: Not Given Magnesium Hydroxide (Milk Of Magnesia 30 Ml Oral.Susp) 30 ml PO DAILY PRN PRN Reason: Constipation Mirtazapine (Mirtazapine 15 Mg Tablet) 15 mg PO BEDTIME [facility] Last Admin: 11/30/23 20:36 Dose: 15 mg Nystatin (Nystatin Oral Susp 500,000 Unit/5 Ml Oral.Susp) 500,000 unit PO TID [facility] Last Admin: 12/01/23 08:40 Dose: 500,000 unit Ondansetron HCl (Ondansetron Odt 4 Mg Tab.Rapdis) 4 mg TRANSLINGU Q8H PRN PRN Reason: Nausea and Vomiting Last Admin: 11/16/23 16:27 Dose: 4 mg Paliperidone (Paliperidone Er 6 Mg Tab.Er.24) 6 mg PO BEDTIME [facility] Last Admin: 11/30/23 20:36 Dose: 6 mg Senna (Sennosides 8.6 Mg Tablet) 8.6 mg PO BEDTIME [facility] Last Admin: 11/16/23 21:34 Dose: 8.6 mg Trazodone HCl (Trazodone Hcl 50 Mg Tablet) 50 mg PO BEDTIME PRN PRN Reason: Insomnia Last Admin: 11/30/23 20:37 Dose: 50 mg Allergies Allergies Allergy/AdvReac Type Severity Reaction Status Date / Time omeprazole Allergy Unknown Verified 10/30/23 00:09 Assessment & Plan Assessment & Plan (1) Schizophrenia: Status: Acute Code(s): F20.9 - Schizophrenia, unspecified Plan Mr. Adame is 63 y/o male with hx schizophrenia who has been admitted to [facility] for psychiatric treatment due to minimal oral intake, paranoid delusions, causing severe failure to thrive since 04/2023. He had to be sent out for medical treatment several times due to dehydration, cholelithiasis, ultimately, psychiatric facility [facility] did not take him back as they reported pt needs more medical support. He has been at [facility] since 09/06/2023 pending placement in psychiatric admission. records indicate that pt had minimal response to medications such as olanzapine, abilify, seroquel. He even had clozaril trial but had a marked change in mentation that resolved once this medication was discontinued. Pt also noted to have dysphasia and on chopped food. Will order ST to assess food consistency need. Will also order nutritional consult. Pt already declined medications, food, labs without showing understanding of risks versus benefits. Consider ECT,going for guardianship as pt not able to care for himself. Will also add DVT prophylaxis- if mobility is limited. PLAN 11/02 did not eat or drink anything. minimally eating or drinking. 11/03 he had 3 ensures today, however, dark urine, UA and CMP ordered. BP low but stable. 11/05 continue same treatment 11/06 continue same treatment 11/07 continue tx. pt refuses medication, appears internally preoccupied, catatonic like features, may consider ECT as it may have significant impact on overall functioning if his presentation is not mostly negative symptoms of schizophrenia. 11/08 may consider revoking CV, consider ECT. [facility] had filed for guardianship. 11/09 cv revoke, sect 01/09 filed. 11/10 continue tx. 11/11 continue tx. 11/13/2023 Would benefit from long-acting injectable consider ECT ck tsh chem profile 11/14/2023 Given injury intravenous fluids recheck labs in the morning strongly need to consider quarter ordered treatment plan for medical safety patient denies wanting to he does report dysphagia GI consult ordered 11/14 continue tx. 11/15 continue tx. 11/16 significant weight loss of more than 10% internally preoccupied. no insight into inability to care for himself. toll booth operator following him. pending court hearing. 11/17 continue tx. 11/18 continue tx. 11/19: Continue current treatment and plan 11/20: Continue current regimen and plans 11/21 continue tx. continue to monitor closely oral intake, especifically ensure 11/22 increase paliperidone 6mg po qhs. trial of ativan for catatonic like features 11/[address] hearing. 11/24 court hearing held- petition endorsed with ECT as primary tx. 11/25 continue tx. 11/26 continue tx plan 11/27 continue tx 11/28 cont tx plan, encourage out of bed, meals fluids, shower 11/29 continue tx. ect tomorrow. b12 and vit d ordered. 11/30 continue with same treatment. Scheduled for ECT for Wednesday Reason for continued inpatient stay Substantial Risk for: inability to function, rapid decompensation and med/psych decompensation Time Spent With Patient Time: Total time managing care of this patient today _20___ minutes.
--- NOTE | 2023-12-01 14:48 | MHC.CLN ---
F/U DIET=REGULAR. ENSURE TID PROVIDES 1050 KCALS, 60 G PROTEIN. PATIENT ACCEPTS SUPPLEMENT. ENCOURAGE ADDITIONAL SNACKS AND SUPPLEMENTS FROM UNIT KITCHEN. OVERALL, PO INTAKE AT MEALS APPEARS IMPROVED. WILL TAKE 75-100% OF SOME MEALS. CONTINUE CURRENT DIET, SUPPLEMENTS AND ENCOURAGE INTAKE ABLE. RD TO FOLLOW WEEKLY.
[2023-12-01] MEDS: ARIPiprazole 5 MG TABLET PO (18:05)
[2023-12-01 20:00] VITALS: BP 95/57; PULSE 80; RESP 16; TEMP 36.5; O2SAT 94
[2023-12-01] MEDS: LORazepam 0.5 MG TABLET PO (21:16)
[2023-12-01] MEDS: traZODone HCL 50 MG TABLET PO (21:16)
[2023-12-02] MEDS: Famotidine 20 MG TABLET PO ×2 (06:16→16:48)
[2023-12-02 07:00] VITALS: BMI 18.4
[2023-12-02 08:00] VITALS: BP 124/83; PULSE 96; RESP 16; TEMP 36.9; O2SAT 94
[2023-12-02] MEDS: Nystatin Oral Susp 500,000 UNIT/5 ML ORAL.SUSP 500000 UNIT PO ×3 (08:04→20:33)
--- NOTE | 2023-12-02 08:12 | HO.PSYCHPN ---
Subjective Subjective Date of Service: 12/02/23 Reason For Visit: Schizoaffective disorder, unspecified type Subjective Notes: Section 7 and Section 8 Interim History: The nursing staff reported the patient had been most of the time on his room, he ate his breakfast yesterday but not dinner lunch. He had been taking his medications isolative he has refused medications in the evening. On interview the patient remains that he is doing better but he is hypoactive. We are going to have ECT tomorrow. Mental Status Exam Mental Status Exam Patient Appearance: Appropriate Patient Orientation: Person and Situation Level of Consciousness: Awake and Appropriate Patient Behavior: Guarded and Passive Mood Description: Withdrawn Affect Description: Constricted Patient Cognition Impaired: Yes Ability to Follow Directions: Good Speech Pattern: Clear Hallucinations: None Delusions: Not Present Thought Process: Distracted and Slowed Thinking Thought Content: positive for [place] and positive for Poverty of Content Judgement: Poor Diagnostics Vital Signs (24Hr): Vital Signs - 24 hr 12/01/23 20:00 12/02/23 08:00 Temperature 97.7 F 98.5 F Pulse Rate 80 96 Respiratory Rate 16 16 Blood Pressure 95/57 L 124/83 Pulse Oximetry 94 94 Oxygen Delivery Method Room Air Room Air BMI result Body Mass Index 18.1 Labs 11/14/23 15:20 11/16/23 09:10 Labs: Laboratory Results - last 48 hr 11/30/23 10:51 Hold Purple Top SEE NOTE Vitamin B12 234 25-OH Vitamin D Total 35.1 Folate 13.4 Imaging Radiology Impressions: ITS Impressions Chest X-Ray 11/14/23 15:16 IMPRESSION: No evidence of acute disease. No pulmonary mass, pneumonia or pleural effusion. Medications Medications Current Medications Acetaminophen (Acetaminophen 325 Mg Tablet) 650 mg PO Q6H PRN PRN Reason: Headache/Pain Mild Scale (1-3) Last Admin: 11/09/23 21:01 Dose: 650 mg Al Hydroxide/Mg Hydroxide (Magnesium Hydrox/Alum Hydrox 30 Ml Oral.Susp) 30 ml PO Q6H PRN PRN Reason: Heartburn/Nausea Last Admin: 10/31/23 23:58 Dose: 30 ml Aripiprazole (Aripiprazole 5 Mg Tablet) 5 mg PO DAILY@1800 [facility] Last Admin: 12/01/23 18:05 Dose: 5 mg Famotidine (Famotidine 20 Mg Tablet) 20 mg PO BID@0630,1630 [facility] Last Admin: 12/02/23 06:16 Dose: 20 mg Loperamide HCl (Loperamide Hcl 2 Mg Capsule) 2 mg PO Q4H PRN PRN Reason: loose stools Last Admin: 11/12/23 11:09 Dose: 2 mg Lorazepam (Lorazepam 0.5 Mg Tablet) 0.5 mg PO BEDTIME [facility] Last Admin: 12/01/23 21:16 Dose: 0.5 mg Magnesium Hydroxide (Milk Of Magnesia 30 Ml Oral.Susp) 30 ml PO DAILY PRN PRN Reason: Constipation Mirtazapine (Mirtazapine 15 Mg Tablet) 15 mg PO BEDTIME [facility] Last Admin: 12/01/23 21:20 Dose: Not Given Nystatin (Nystatin Oral Susp 500,000 Unit/5 Ml Oral.Susp) 500,000 unit PO TID [facility] Last Admin: 12/02/23 08:04 Dose: 500,000 unit Ondansetron HCl (Ondansetron Odt 4 Mg Tab.Rapdis) 4 mg TRANSLINGU Q8H PRN PRN Reason: Nausea and Vomiting Last Admin: 11/16/23 16:27 Dose: 4 mg Paliperidone (Paliperidone Er 6 Mg Tab.Er.24) 6 mg PO BEDTIME [facility] Last Admin: 12/01/23 21:19 Dose: Not Given Senna (Sennosides 8.6 Mg Tablet) 8.6 mg PO BEDTIME [facility] Last Admin: 11/16/23 21:34 Dose: 8.6 mg Trazodone HCl (Trazodone Hcl 50 Mg Tablet) 50 mg PO BEDTIME PRN PRN Reason: Insomnia Last Admin: 12/01/23 21:16 Dose: 50 mg Allergies Allergies Allergy/AdvReac Type Severity Reaction Status Date / Time omeprazole Allergy Unknown Verified 10/30/23 00:09 Assessment & Plan Assessment & Plan (1) Schizophrenia: Status: Acute Code(s): F20.9 - Schizophrenia, unspecified Plan Mr. Adame is 63 y/o male with hx schizophrenia who has been admitted to [facility] for psychiatric treatment due to minimal oral intake, paranoid delusions, causing severe failure to thrive since 04/2023. He had to be sent out for medical treatment several times due to dehydration, cholelithiasis, ultimately, psychiatric facility [facility] did not take him back as they reported pt needs more medical support. He has been at [facility] since 09/06/2023 pending placement in psychiatric admission. records indicate that pt had minimal response to medications such as olanzapine, abilify, seroquel. He even had clozaril trial but had a marked change in mentation that resolved once this medication was discontinued. Pt also noted to have dysphasia and on chopped food. Will order ST to assess food consistency need. Will also order nutritional consult. Pt already declined medications, food, labs without showing understanding of risks versus benefits. Consider ECT,going for guardianship as pt not able to care for himself. Will also add DVT prophylaxis- if mobility is limited. PLAN 11/02 did not eat or drink anything. minimally eating or drinking. 11/03 he had 3 ensures today, however, dark urine, UA and CMP ordered. BP low but stable. 11/05 continue same treatment 11/06 continue same treatment 11/07 continue tx. pt refuses medication, appears internally preoccupied, catatonic like features, may consider ECT as it may have significant impact on overall functioning if his presentation is not mostly negative symptoms of schizophrenia. 11/08 may consider revoking CV, consider ECT. [facility] had filed for guardianship. 11/09 cv revoke, sect 01/09 filed. 11/10 continue tx. 11/11 continue tx. 11/13/2023 Would benefit from long-acting injectable consider ECT ck tsh chem profile 11/14/2023 Given injury intravenous fluids recheck labs in the morning strongly need to consider quarter ordered treatment plan for medical safety patient denies wanting to he does report dysphagia GI consult ordered 11/14 continue tx. 11/15 continue tx. 11/16 significant weight loss of more than 10% internally preoccupied. no insight into inability to care for himself. bobbin cleaner hand following him. pending court hearing. 11/17 continue tx. 11/18 continue tx. 11/19: Continue current treatment and plan 11/20: Continue current regimen and plans 11/21 continue tx. continue to monitor closely oral intake, especifically ensure 11/22 increase paliperidone 6mg po qhs. trial of ativan for catatonic like features 11/[address] hearing. 11/24 court hearing held- petition endorsed with ECT as primary tx. 11/25 continue tx. 11/26 continue tx plan 11/27 continue tx 11/28 cont tx plan, encourage out of bed, meals fluids, shower 11/29 continue tx. ect tomorrow. b12 and vit d ordered. 11/30 continue with same treatment. Scheduled for ECT for Tuesday 11/14 no changes scheduled for ECT tomorrow Reason for continued inpatient stay Substantial Risk for: inability to function, rapid decompensation and med/psych decompensation Time Spent With Patient Time: Total time managing care of this patient today __20__ minutes.
[2023-12-02] MEDS: Ondansetron ODT 4 MG TAB.RAPDIS TRANSLINGU (11:31)
[2023-12-02] MEDS: ARIPiprazole 5 MG TABLET PO (17:09)
[2023-12-02 20:00] VITALS: BP 94/67; PULSE 94; RESP 16; TEMP 36.9; O2SAT 94
[2023-12-02] MEDS: Paliperidone ER 6 MG TAB.ER.24 PO (20:32)
[2023-12-02] MEDS: traZODone HCL 50 MG TABLET PO (20:32)
[2023-12-02] MEDS: Mirtazapine 15 MG TABLET PO (20:32)
[2023-12-03] VITALS (9 sets, daily range): BP systolic 93–131; BP diastolic 54–93; PULSE 77–106; RESP 15–16; TEMP 36.2–36.8; O2SAT 93–99
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
--- NOTE | 2023-12-03 07:24 | MHC.SHP ---
Pre-Procedural Eval Section A - 24 Hr Update-Section A only Date of Service: 12/03/23 The patient is an INPATIENT: Yes Changes since office visit: No Cold of Flu in the past 2 weeks, No New Medical Problems, No Changes in Medication and No Patient answered all questions The patient has been examined within 24 hours of the surgical procedure. The History & Physical has been completed within 30 days and I have reviewed it.: Yes Section B - Complete if H&P > 30 days Chief Complaint: Schizoaffective disorder, unspecified type Details of Present Illness: The patient had been admitted for exacerbation of psychosis and catatonia, filed section 7 and 8, ECT court ordered since the patient can not consent by himself due to severe hypoactivity. He has failed to several antipsychotic treatments. Relevant Family History (Specify if Yes): No Relevant Social History: None Present Medications: see Short Stay Collaborative assessment Medical History: No relevant PMH History of Previous Operations: No relevant previous surgery Allergies: Allergies Allergy/AdvReac Type Severity Reaction Status Date / Time omeprazole Allergy Unknown Verified 10/30/23 00:09 Review of Systems Sugical H&P ROS: Negative: Cardiovascular, Respiratory, Neurological, Allergic/Immunologic, Gastrointestinal, Genitourinary, Musculoskeletal, Integumentary, Endocrine and Eyes/Ears/Nose/Throat and Yes, Specify: Constitution (emaciated), Psychiatric (severe hypoactivity, nearly catatonia) and Hem-Onc (anemia) Exam Surgical H&P Exam: Normal: HEENT, Normal: Heart, Normal: Lungs, Normal: Extremities, Normal: Abdomen, Normal: Skin and Normal: Neurological Plan Diagnosis/Plan: Unchanged I have reviewed the history and physical and performed a pertinent physical examination on my patient. No changes have occurred unless specified. Time Spent With Patient Time: Total time managing care of this patient today __20__ minutes.
--- NOTE | 2023-12-03 08:06 | HO.ECTPROC ---
ECT Procedure Note Diagnosis/Treatment Date of Service: 12/03/23 Diagnosis: Catatonia and Schizoaffective Disorder Current Treatment Number: 1 Treatment: Series Interval Clinical Notes: The patient has been nearly catatonic, court remanded to do ECT. No prior ECTs as per chart. ECT done with right unilateral, 0.25 at 100%. He had a motor seizure of 20s but not recorded seizure by the computer but seizure activity noticed for 54s that resolved by itself. Woke up well, no evidence of agitation after the procedure. Time: Total time managing care of this patient today _30___ minutes. ECT Settings Device: THYMATRON DGx Electrode Placement: Right Unilateral Program/Pulse Width: 0.25 Energy Percent: 100 Seizure Duration By EEG (in seconds): 0 (but seizure activity noticed until 54s) By Motor Observation (in seconds): 20 Medications Administration General Anesthetic: Etomidate (6) Muscle Relaxant: Succinylcholine (100) Ancillary Medications Analgesics: Torodol - Pre ECT Anti-emetics: Zofran - Pre ECT Airway Management Airway Management: Bag Mask Ventilation Treatment Recommendations Electrode Placement: Right Unilateral Program/Pulse Width: 0.50 Energy Percent: 100 Pt Tolerated Procedure w/o Issue: Yes
--- NOTE | 2023-12-03 14:48 | P.PNPSI_ITS ---
Subjective Subjective Date of Service: 12/03/23 Reason For Visit: Schizoaffective disorder, unspecified type Subjective Notes: Section 7 and Section 8 Interim History: The nursing staff reported the patient had been hypoactive, very disheveled. Today we had ECT without no complications. Today in the afternoon he reported that he was feeling very tired still hypoactive. No changes in his mental status. Mental Status Exam Mental Status Exam Patient Appearance: Unkempt Patient Orientation: Person and Situation Level of Consciousness: Awake and Appropriate Patient Behavior: Guarded and Passive Mood Description: Withdrawn Affect Description: Blunted Patient Cognition Impaired: Yes Ability to Follow Directions: Good Speech Pattern: Clear Delusions: Paranoid Ideation and Ideas of Reference Thought Process: Distracted and Slowed Thinking Thought Content: positive for [place] and positive for Poverty of Content Judgement: Poor Diagnostics Vital Signs (24Hr): Vital Signs - 24 hr 12/02/23 20:00 12/03/23 05:51 12/03/23 06:39 Temperature 98.4 F 97.5 F 97.1 F Pulse Rate 94 78 85 Respiratory Rate 16 16 16 Blood Pressure 94/67 93/68 98/70 Pulse Oximetry 94 94 94 Oxygen Delivery Method Room Air Room Air Oxygen Flow Rate 12/03/23 08:00 12/03/23 08:16 12/03/23 08:21 Temperature 98 F 97.2 F Pulse Rate 81 106 H 77 Respiratory Rate 16 15 15 Blood Pressure 96/54 L 124/93 H 121/88 Pulse Oximetry 95 99 97 Oxygen Delivery Method Room Air Nasal Cannula with ETCO2 Nasal Cannula with ETCO2 Oxygen Flow Rate 2 2 12/03/23 08:26 12/03/23 08:31 12/03/23 08:46 Temperature Pulse Rate 81 85 83 Respiratory Rate 15 16 16 Blood Pressure 115/90 H 131/83 127/61 Pulse Oximetry 97 96 95 Oxygen Delivery Method Nasal Cannula with ETCO2 Room Air Room Air Oxygen Flow Rate 2 BMI result Body Mass Index 18.4 Labs 11/14/23 15:20 11/16/23 09:10 Imaging Radiology Impressions: ITS Impressions Chest X-Ray 11/14/23 15:16 IMPRESSION: No evidence of acute disease. No pulmonary mass, pneumonia or pleural effusion. Medications Medications Current Medications Acetaminophen (Acetaminophen 325 Mg Tablet) 650 mg PO Q6H PRN PRN Reason: Headache/Pain Mild Scale (1-3) Last Admin: 11/09/23 21:01 Dose: 650 mg Al Hydroxide/Mg Hydroxide (Magnesium Hydrox/Alum Hydrox 30 Ml Oral.Susp) 30 ml PO Q6H PRN PRN Reason: Heartburn/Nausea Last Admin: 10/31/23 23:58 Dose: 30 ml Aripiprazole (Aripiprazole 5 Mg Tablet) 5 mg PO DAILY@1800 [facility] Last Admin: 12/02/23 17:09 Dose: 5 mg Famotidine (Famotidine 20 Mg Tablet) 20 mg PO BID@0630,1630 [facility] Last Admin: 12/03/23 05:51 Dose: Not Given Loperamide HCl (Loperamide Hcl 2 Mg Capsule) 2 mg PO Q4H PRN PRN Reason: loose stools Last Admin: 11/12/23 11:09 Dose: 2 mg Lorazepam (Lorazepam 0.5 Mg Tablet) 0.5 mg PO BEDTIME [facility] Last Admin: 12/02/23 20:33 Dose: Not Given Magnesium Hydroxide (Milk Of Magnesia 30 Ml Oral.Susp) 30 ml PO DAILY PRN PRN Reason: Constipation Mirtazapine (Mirtazapine 15 Mg Tablet) 15 mg PO BEDTIME [facility] Last Admin: 12/02/23 20:32 Dose: 15 mg Nystatin (Nystatin Oral Susp 500,000 Unit/5 Ml Oral.Susp) 500,000 unit PO TID [facility] Last Admin: 12/03/23 09:42 Dose: Not Given Ondansetron HCl (Ondansetron Odt 4 Mg Tab.Rapdis) 4 mg TRANSLINGU Q8H PRN PRN Reason: Nausea and Vomiting Last Admin: 12/02/23 11:31 Dose: 4 mg Paliperidone (Paliperidone Er 6 Mg Tab.Er.24) 6 mg PO BEDTIME [facility] Last Admin: 12/02/23 20:32 Dose: 6 mg Senna (Sennosides 8.6 Mg Tablet) 8.6 mg PO BEDTIME [facility] Last Admin: 11/16/23 21:34 Dose: 8.6 mg Trazodone HCl (Trazodone Hcl 50 Mg Tablet) 50 mg PO BEDTIME PRN PRN Reason: Insomnia Last Admin: 12/02/23 20:32 Dose: 50 mg Allergies Allergies Allergy/AdvReac Type Severity Reaction Status Date / Time omeprazole Allergy Unknown Verified 10/30/23 00:09 Assessment & Plan Assessment & Plan (1) Failure to thrive in adult: Status: Acute Code(s): R62.7 - Adult failure to thrive (2) GERD (gastroesophageal reflux disease): Status: Acute Code(s): K21.9 - Gastro-esophageal reflux disease without esophagitis Plan 63 YM with unspecified dementia, schizoaffective disorder and gerd admitted to geriatric psychiatry on 10/30/23. GI consulted due to dysphagia However pt is denying that he has any difficulty swallowing and witnessed to be taking ensure and eating burger and chips without problems. Decreased PO intake may be related to oral thrush and improving with Nystatin RECOMMENDATIONS: Continue Nystatin and Famotidine Please re-consult if pt notes recurrent problems Plan 1. Continue with antipsychotics as prescribed. 2. Continue with ECT 2nd session next Wednesday. 3. Continue with medical treatment. Reason for continued inpatient stay Substantial Risk for: inability to function, rapid decompensation and med/psych decompensation Time Spent With Patient Time: Total time managing care of this patient today __20__ minutes.
[2023-12-03] MEDS: Nystatin Oral Susp 500,000 UNIT/5 ML ORAL.SUSP 500000 UNIT PO ×2 (14:49→20:33)
[2023-12-03] MEDS: Sennosides 8.6 MG TABLET PO (20:33)
[2023-12-03] MEDS: Paliperidone ER 6 MG TAB.ER.24 PO (20:34)
[2023-12-03] MEDS: Mirtazapine 15 MG TABLET PO (20:34)
[2023-12-03] MEDS: LORazepam 0.5 MG TABLET PO (20:34)
[2023-12-04] MEDS: Famotidine 20 MG TABLET PO ×2 (06:01→17:16)
[2023-12-04 08:00] VITALS: BP 99/70; PULSE 71; RESP 16; TEMP 37.2; O2SAT 96
--- NOTE | 2023-12-04 11:12 | HO.PSYCHPN ---
Subjective Subjective Date of Service: 12/04/23 Reason For Visit: Schizoaffective disorder, unspecified type Subjective Notes: Section 8 Interim History: met with patient. Discussed with Nursing. Had 1st ECT yesterday. Spending a lot of time in bed. Poor appetite. Today reports he has not been eating enough, but is trying. Depression evident. No SI or psychosis noted that. poor self-care and psychomotor retardation evident. Is allowing care to be delayed Medication Compliance: Yes Side effects from medications: No Attending Groups: No Review of Systems Acute medical concerns: No Review of Systems Review of Systems unremarkable Mental Status Exam Mental Status Exam Narrative: no evidence of SI or HI Patient Appearance: Unkempt Patient Orientation: Person and Situation Level of Consciousness: Awake and Appropriate Patient Behavior: Guarded and Passive Mood Description: Withdrawn Affect Description: Blunted Patient Cognition Impaired: Yes Ability to Follow Directions: Good Speech Pattern: Clear Thought Process: Distracted and Slowed Thinking Thought Content: positive for [place] and positive for Poverty of Content Judgement: Poor Diagnostics Vital Signs (24Hr): Vital Signs - 24 hr 12/03/23 20:00 12/04/23 08:00 Temperature 98.2 F 98.9 F Pulse Rate 88 71 Respiratory Rate 16 16 Blood Pressure 98/58 L 99/70 Pulse Oximetry 93 96 Oxygen Delivery Method Room Air Room Air BMI result Body Mass Index 18.4 Labs 11/14/23 15:20 11/16/23 09:10 Imaging Radiology Impressions: ITS Impressions Chest X-Ray 11/14/23 15:16 IMPRESSION: No evidence of acute disease. No pulmonary mass, pneumonia or pleural effusion. Medications Medications Current Medications Acetaminophen (Acetaminophen 325 Mg Tablet) 650 mg PO Q6H PRN PRN Reason: Headache/Pain Mild Scale (1-3) Last Admin: 11/09/23 21:01 Dose: 650 mg Al Hydroxide/Mg Hydroxide (Magnesium Hydrox/Alum Hydrox 30 Ml Oral.Susp) 30 ml PO Q6H PRN PRN Reason: Heartburn/Nausea Last Admin: 10/31/23 23:58 Dose: 30 ml Aripiprazole (Aripiprazole 5 Mg Tablet) 5 mg PO DAILY@1800 YESY Last Admin: 12/03/23 17:37 Dose: Not Given Famotidine (Famotidine 20 Mg Tablet) 20 mg PO BID@0630,1630 YESY Last Admin: 12/04/23 06:01 Dose: 20 mg Loperamide HCl (Loperamide Hcl 2 Mg Capsule) 2 mg PO Q4H PRN PRN Reason: loose stools Last Admin: 11/12/23 11:09 Dose: 2 mg Lorazepam (Lorazepam 0.5 Mg Tablet) 0.5 mg PO BEDTIME [facility] Last Admin: 12/03/23 20:34 Dose: 0.5 mg Magnesium Hydroxide (Milk Of Magnesia 30 Ml Oral.Susp) 30 ml PO DAILY PRN PRN Reason: Constipation Mirtazapine (Mirtazapine 15 Mg Tablet) 15 mg PO BEDTIME YESY Last Admin: 12/03/23 20:34 Dose: 15 mg Nystatin (Nystatin Oral Susp 500,000 Unit/5 Ml Oral.Susp) 500,000 unit PO TID [facility] Last Admin: 12/04/23 08:47 Dose: Not Given Ondansetron HCl (Ondansetron Odt 4 Mg Tab.Rapdis) 4 mg TRANSLINGU Q8H PRN PRN Reason: Nausea and Vomiting Last Admin: 12/02/23 11:31 Dose: 4 mg Paliperidone (Paliperidone Er 6 Mg Tab.Er.24) 6 mg PO BEDTIME YESY Last Admin: 12/03/23 20:34 Dose: 6 mg Senna (Sennosides 8.6 Mg Tablet) 8.6 mg PO BEDTIME YESY Last Admin: 12/03/23 20:33 Dose: 8.6 mg Trazodone HCl (Trazodone Hcl 50 Mg Tablet) 50 mg PO BEDTIME PRN PRN Reason: Insomnia Last Admin: 12/02/23 20:32 Dose: 50 mg Allergies Allergies Allergy/AdvReac Type Severity Reaction Status Date / Time omeprazole Allergy Unknown Verified 10/30/23 00:09 Assessment & Plan Assessment & Plan (1) Failure to thrive in adult: Status: Acute Code(s): R62.7 - Adult failure to thrive (2) GERD (gastroesophageal reflux disease): Status: Acute Code(s): K21.9 - Gastro-esophageal reflux disease without esophagitis Plan 63 YM with unspecified dementia, schizoaffective disorder and gerd admitted to geriatric psychiatry on 10/30/23. GI consulted due to dysphagia However pt is denying that he has any difficulty swallowing and witnessed to be taking ensure and eating burger and chips without problems. Decreased PO intake may be related to oral thrush and improving with Nystatin RECOMMENDATIONS: Continue Nystatin and Famotidine Please re-consult if pt notes recurrent problems Plan 1. Continue with antipsychotics as prescribed. 2. Continue with ECT 2nd session next Wednesday. 3. Continue with medical treatment. 12/04/2023: No changes, with the exception of discontinuing oral nystatin as patient has been declining same. Reason for continued inpatient stay Substantial Risk for: inability to function Time Spent With Patient Time: Total time managing care of this patient today ____ minutes.
[2023-12-04] MEDS: ARIPiprazole 5 MG TABLET PO (17:16)
[2023-12-04 20:00] VITALS: BP 90/60; PULSE 85; RESP 18; TEMP 36.9; O2SAT 96
[2023-12-04] MEDS: Mirtazapine 15 MG TABLET PO (20:02)
[2023-12-04] MEDS: Paliperidone ER 6 MG TAB.ER.24 PO (20:02)
[2023-12-04] MEDS: LORazepam 0.5 MG TABLET PO (20:02)
[2023-12-04] MEDS: Sennosides 8.6 MG TABLET PO (20:03)
[2023-12-05] MEDS: Famotidine 20 MG TABLET PO ×2 (06:13→16:51)
[2023-12-05 07:52] VITALS: BP 99/65; PULSE 112; RESP 18; TEMP 36.9; O2SAT 96
--- NOTE | 2023-12-05 11:05 | P.PNPSI_ITS ---
Subjective Subjective Date of Service: 12/05/23 Reason For Visit: Schizoaffective disorder, unspecified type Interim History: met with patient. Discussed with Nursing. Remains in bed. Very poor self- care and malodorous. Is trying to eat. Some ensures, fluids and partial meals. ECT 2. Scheduled for tomorrow. Depression evident. No SI or psychosis noted that. poor self-care and psychomotor retardation evident. Is allowing care to be delayed Review of Systems Review of Systems unremarkable Mental Status Exam Mental Status Exam Narrative: no evidence of SI or HI Patient Appearance: Unkempt Patient Orientation: Person and Situation Level of Consciousness: Awake and Appropriate Patient Behavior: Guarded and Passive Mood Description: Withdrawn Affect Description: Blunted Patient Cognition Impaired: Yes Ability to Follow Directions: Good Speech Pattern: Clear Diagnostics Vital Signs (24Hr): Vital Signs - 24 hr 12/04/23 20:00 12/05/23 07:52 Temperature 98.4 F 98.4 F Pulse Rate 85 112 H Respiratory Rate 18 18 Blood Pressure 90/60 99/65 Pulse Oximetry 96 96 Oxygen Delivery Method Room Air Room Air BMI result Body Mass Index 18.4 Labs 11/14/23 15:20 11/16/23 09:10 Imaging Radiology Impressions: ITS Impressions Chest X-Ray 11/14/23 15:16 IMPRESSION: No evidence of acute disease. No pulmonary mass, pneumonia or pleural effusion. Medications Medications Current Medications Acetaminophen (Acetaminophen 325 Mg Tablet) 650 mg PO Q6H PRN PRN Reason: Headache/Pain Mild Scale (1-3) Last Admin: 11/09/23 21:01 Dose: 650 mg Al Hydroxide/Mg Hydroxide (Magnesium Hydrox/Alum Hydrox 30 Ml Oral.Susp) 30 ml PO Q6H PRN PRN Reason: Heartburn/Nausea Last Admin: 10/31/23 23:58 Dose: 30 ml Aripiprazole (Aripiprazole 5 Mg Tablet) 5 mg PO DAILY@1800 YESY Last Admin: 12/04/23 17:16 Dose: 5 mg Famotidine (Famotidine 20 Mg Tablet) 20 mg PO BID@0630,1630 YESY Last Admin: 12/05/23 06:13 Dose: 20 mg Loperamide HCl (Loperamide Hcl 2 Mg Capsule) 2 mg PO Q4H PRN PRN Reason: loose stools Last Admin: 11/12/23 11:09 Dose: 2 mg Lorazepam (Lorazepam 0.5 Mg Tablet) 0.5 mg PO BEDTIME YESY Last Admin: 12/04/23 20:02 Dose: 0.5 mg Magnesium Hydroxide (Milk Of Magnesia 30 Ml Oral.Susp) 30 ml PO DAILY PRN PRN Reason: Constipation Mirtazapine (Mirtazapine 15 Mg Tablet) 15 mg PO BEDTIME YESY Last Admin: 12/04/23 20:02 Dose: 15 mg Ondansetron HCl (Ondansetron Odt 4 Mg Tab.Rapdis) 4 mg TRANSLINGU Q8H PRN PRN Reason: Nausea and Vomiting Last Admin: 12/02/23 11:31 Dose: 4 mg Paliperidone (Paliperidone Er 6 Mg Tab.Er.24) 6 mg PO BEDTIME YESY Last Admin: 12/04/23 20:02 Dose: 6 mg Senna (Sennosides 8.6 Mg Tablet) 8.6 mg PO BEDTIME YESY Last Admin: 12/04/23 20:03 Dose: 8.6 mg Trazodone HCl (Trazodone Hcl 50 Mg Tablet) 50 mg PO BEDTIME PRN PRN Reason: Insomnia Last Admin: 12/02/23 20:32 Dose: 50 mg Allergies Allergies Allergy/AdvReac Type Severity Reaction Status Date / Time omeprazole Allergy Unknown Verified 10/30/23 00:09 Assessment & Plan Assessment & Plan (1) Failure to thrive in adult: Status: Acute Code(s): R62.7 - Adult failure to thrive (2) GERD (gastroesophageal reflux disease): Status: Acute Code(s): K21.9 - Gastro-esophageal reflux disease without esophagitis Plan 63 YM with unspecified dementia, schizoaffective disorder and gerd admitted to geriatric psychiatry on 10/30/23. GI consulted due to dysphagia However pt is denying that he has any difficulty swallowing and witnessed to be taking ensure and eating burger and chips without problems. Decreased PO intake may be related to oral thrush and improving with Nystatin RECOMMENDATIONS: Continue Nystatin and Famotidine Please re-consult if pt notes recurrent problems Plan 1. Continue with antipsychotics as prescribed. 2. Continue with ECT 2nd session next Wednesday. 3. Continue with medical treatment. 12/04/2023: No changes, with the exception of discontinuing oral nystatin as patient has been declining same. 12/05/2023: No changes. Second ECT scheduled for tomorrow Reason for continued inpatient stay Substantial Risk for: inability to function Time Spent With Patient Time: Total time managing care of this patient today ____ minutes.
[2023-12-05 12:22] VITALS: PULSE 98
--- NOTE | 2023-12-05 12:23 | PC.NURSE ---
HR [address] Middleton notified. Pulse rechecked after lunch and 98.
[2023-12-05] MEDS: ARIPiprazole 5 MG TABLET PO (16:56)
[2023-12-05 20:00] VITALS: BP 84/55; PULSE 98; TEMP 36.3; O2SAT 94
[2023-12-05] MEDS: Paliperidone ER 6 MG TAB.ER.24 PO (20:55)
[2023-12-05] MEDS: Mirtazapine 15 MG TABLET PO (20:55)
[2023-12-05] MEDS: Sennosides 8.6 MG TABLET PO (20:55)
[2023-12-06] VITALS (11 sets, daily range): BP systolic 81–153; BP diastolic 60–95; PULSE 79–105; RESP 13–17; TEMP 36.6–37.2; O2SAT 92–98
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
[2023-12-06] MEDS: Lactated Ringers 1,000 ML 50 ML IVCONT (06:52)
--- NOTE | 2023-12-06 06:59 | MHC.SHP ---
Pre-Procedural Eval Section A - 24 Hr Update-Section A only Date of Service: 12/06/23 The patient is an INPATIENT: Yes Changes since office visit: No Cold of Flu in the past 2 weeks, No New Medical Problems, No Changes in Medication and No Patient answered all questions The patient has been examined within 24 hours of the surgical procedure. The History & Physical has been completed within 30 days and I have reviewed it.: Yes Section B - Complete if H&P > 30 days Chief Complaint: Schizoaffective disorder, unspecified type Allergies: Allergies Allergy/AdvReac Type Severity Reaction Status Date / Time omeprazole Allergy Unknown Verified 10/30/23 00:09 Plan I have reviewed the history and physical and performed a pertinent physical examination on my patient. No changes have occurred unless specified. Time Spent With Patient Time: Total time managing care of this patient today ____ minutes.
--- NOTE | 2023-12-06 07:30 | HO.ECTPROC ---
ECT Procedure Note Diagnosis/Treatment Date of Service: 12/06/23 Diagnosis: Catatonia and Schizoaffective Disorder Previous ECT Date: 12/03/23 Current Treatment Number: 2 Treatment: Series Interval Clinical Notes: The patient remains hypoactive, nearly catatonic, disheveled with poor hygiene. Denies side effects with previous ECT. ECT done with inreased parameters, he had a normal seizure, woke up well. Time: Total time managing care of this patient today ____ minutes. ECT Settings Device: THYMATRON DGx Electrode Placement: Right Unilateral Program/Pulse Width: 0.50 Energy Percent: 100 Seizure Duration By EEG (in seconds): 37 By Motor Observation (in seconds): 30 Medications Administration General Anesthetic: Etomidate (16) Muscle Relaxant: Succinylcholine (100) Ancillary Medications Analgesics: Torodol - Pre ECT Anti-emetics: Zofran - Pre ECT Airway Management Airway Management: Bag Mask Ventilation Treatment Recommendations No Changes Recommended: No change Pt Tolerated Procedure w/o Issue: Yes
--- NOTE | 2023-12-06 10:30 | P.PNPSI_ITS ---
Subjective Subjective Date of Service: 12/06/23 Reason For Visit: Schizoaffective disorder, unspecified type Subjective Notes: Section 8 Interim History: Pt slept through the night. Pt had ECT #2 today. He seems somewhat somnolent after. VS stable on the unit SBP 120. Pt minimally verbal still, eating with much encouragement. He denies headache or any other pain after ECT. Medication Compliance: Yes Review of Systems Review of Systems unremarkable Yes all other systems are reviewed and are negative Mental Status Exam Mental Status Exam Patient Appearance: Unkempt Patient Orientation: Person and Situation Level of Consciousness: Awake and Appropriate Patient Behavior: Guarded and Passive Mood Description: Withdrawn Affect Description: Blunted Patient Cognition Impaired: Yes Ability to Follow Directions: Good Speech Pattern: Clear Diagnostics Vital Signs (24Hr): Vital Signs - 24 hr 12/05/23 12:22 12/05/23 20:00 12/06/23 05:56 Temperature 97.3 F 98.6 F Pulse Rate 98 98 81 Respiratory Rate 17 Blood Pressure 84/55 L 100/62 Pulse Oximetry 94 93 Oxygen Delivery Method Room Air Oxygen Flow Rate 12/06/23 06:32 12/06/23 07:34 12/06/23 07:39 Temperature 98 F 98.2 F Pulse Rate 96 105 H 91 Respiratory Rate 16 13 15 Blood Pressure 96/71 153/95 H 102/73 Pulse Oximetry 92 98 98 Oxygen Delivery Method Room Air Nasal Cannula with ETCO2 Nasal Cannula with ETCO2 Oxygen Flow Rate 2 2 12/06/23 07:44 12/06/23 07:49 12/06/23 08:04 Temperature Pulse Rate 85 84 80 Respiratory Rate 15 15 13 Blood Pressure 109/80 106/76 108/65 Pulse Oximetry 96 96 93 Oxygen Delivery Method Nasal Cannula with ETCO2 Nasal Cannula with ETCO2 Room Air Oxygen Flow Rate 2 2 12/06/23 08:19 12/06/23 10:03 Temperature 98.2 F 98.8 F Pulse Rate 79 94 Respiratory Rate 16 16 Blood Pressure 108/71 81/64 L Pulse Oximetry 93 95 Oxygen Delivery Method Room Air Room Air Oxygen Flow Rate BMI result Body Mass Index 18.4 Labs 11/14/23 15:20 11/16/23 09:10 Imaging Radiology Impressions: ITS Impressions Chest X-Ray 11/14/23 15:16 IMPRESSION: No evidence of acute disease. No pulmonary mass, pneumonia or pleural effusion. Medications Medications Current Medications Acetaminophen (Acetaminophen 325 Mg Tablet) 650 mg PO Q6H PRN PRN Reason: Headache/Pain Mild Scale (1-3) Last Admin: 11/09/23 21:01 Dose: 650 mg Al Hydroxide/Mg Hydroxide (Magnesium Hydrox/Alum Hydrox 30 Ml Oral.Susp) 30 ml PO Q6H PRN PRN Reason: Heartburn/Nausea Last Admin: 10/31/23 23:58 Dose: 30 ml Aripiprazole (Aripiprazole 5 Mg Tablet) 5 mg PO DAILY@1800 [facility] Last Admin: 12/05/23 16:56 Dose: 5 mg Famotidine (Famotidine 20 Mg Tablet) 20 mg PO BID@0630,1630 [facility] Last Admin: 12/06/23 07:26 Dose: Not Given Loperamide HCl (Loperamide Hcl 2 Mg Capsule) 2 mg PO Q4H PRN PRN Reason: loose stools Last Admin: 11/12/23 11:09 Dose: 2 mg Lorazepam (Lorazepam 0.5 Mg Tablet) 0.5 mg PO BEDTIME [facility] Last Admin: 12/05/23 20:54 Dose: Not Given Magnesium Hydroxide (Milk Of Magnesia 30 Ml Oral.Susp) 30 ml PO DAILY PRN PRN Reason: Constipation Mirtazapine (Mirtazapine 15 Mg Tablet) 15 mg PO BEDTIME [facility] Last Admin: 12/05/23 20:55 Dose: 15 mg Ondansetron HCl (Ondansetron Odt 4 Mg Tab.Rapdis) 4 mg TRANSLINGU Q8H PRN PRN Reason: Nausea and Vomiting Last Admin: 12/02/23 11:31 Dose: 4 mg Paliperidone (Paliperidone Er 6 Mg Tab.Er.24) 6 mg PO BEDTIME YESY Last Admin: 12/05/23 20:55 Dose: 6 mg Senna (Sennosides 8.6 Mg Tablet) 8.6 mg PO BEDTIME [facility] Last Admin: 12/05/23 20:55 Dose: 8.6 mg Trazodone HCl (Trazodone Hcl 50 Mg Tablet) 50 mg PO BEDTIME PRN PRN Reason: Insomnia Last Admin: 12/02/23 20:32 Dose: 50 mg Allergies Allergies Allergy/AdvReac Type Severity Reaction Status Date / Time omeprazole Allergy Unknown Verified 10/30/23 00:09 Assessment & Plan Assessment & Plan (1) Schizophrenia: Status: Acute Code(s): F20.9 - Schizophrenia, unspecified Plan 63 YM with unspecified dementia, schizoaffective disorder and gerd admitted to geriatric psychiatry on 10/30/23. GI consulted due to dysphagia However pt is denying that he has any difficulty swallowing and witnessed to be taking ensure and eating burger and chips without problems. Decreased PO intake may be related to oral thrush and improving with Nystatin RECOMMENDATIONS: Continue Nystatin and Famotidine Please re-consult if pt notes recurrent problems Plan 1. Continue with antipsychotics as prescribed. 2. Continue with ECT 2nd session next Wednesday. 3. Continue with medical treatment. 12/04/2023: No changes, with the exception of discontinuing oral nystatin as patient has been declining same. 12/05/2023: No changes. Second ECT scheduled for tomorrow 12/05 ECT #2 today. no significant change just yet. may consider adding namenda for stimulation of cognitive impairments, abulia symptoms. stop ativan at bedtime at this time. Reason for continued inpatient stay Substantial Risk for: inability to function Time Spent With Patient Time: Total time managing care of this patient today ____ minutes.
[2023-12-06] MEDS: Famotidine 20 MG TABLET PO (16:47)
[2023-12-06] MEDS: ARIPiprazole 5 MG TABLET PO (17:05)
[2023-12-06] MEDS: Sennosides 8.6 MG TABLET PO (21:08)
[2023-12-06] MEDS: Mirtazapine 15 MG TABLET PO (21:08)
[2023-12-06] MEDS: Paliperidone ER 6 MG TAB.ER.24 PO (21:09)
[2023-12-07 04:58] VITALS: O2SAT 93
[2023-12-07] MEDS: Famotidine 20 MG TABLET PO ×2 (05:42→16:15)
[2023-12-07 08:00] VITALS: BP 97/63; PULSE 77; RESP 16; TEMP 36.8; O2SAT 95
--- NOTE | 2023-12-07 09:05 | HO.PSYCHPN ---
Subjective Subjective Date of Service: 12/07/23 Reason For Visit: Schizoaffective disorder, unspecified type Subjective Notes: Section 8 Interim History: Pt mostly in bed. He reports feeling tired. He denies SI/HI. He stopped answering questions after a while. He is taking medications as prescribed. Mental Status Exam Mental Status Exam Narrative: Appearance: cachectic, malnourished, in NAD Behavior: guarded, minimally engaging in conversation Psychomotor: retardation noted Speech: mostly clear, regular rate, minimally spontaneous TP: wanting to rest TC: tired, not wanting to take any medications Mood: tired Affect: constricted SI: denies HI: denies VH/AH: appears internally preoccupied Delusions: paranoid delusions Insight/judgment: impaired x 2. memory/cog: alert, not able to assess orientation as pt declines to answer questions. Diagnostics Vital Signs (24Hr): Vital Signs - 24 hr 12/06/23 10:03 12/06/23 11:34 12/06/23 20:00 Temperature 98.8 F 98.9 F Pulse Rate 94 94 98 Respiratory Rate 16 17 Blood Pressure 81/64 L 120/60 90/61 Pulse Oximetry 95 92 Oxygen Delivery Method Room Air Room Air 12/07/23 04:58 12/07/23 08:00 Temperature 98.3 F Pulse Rate 77 Respiratory Rate 16 Blood Pressure 97/63 Pulse Oximetry 93 95 Oxygen Delivery Method Room Air Room Air BMI result Body Mass Index 18.4 Labs 11/14/23 15:20 11/16/23 09:10 Imaging Radiology Impressions: ITS Impressions Chest X-Ray 11/14/23 15:16 IMPRESSION: No evidence of acute disease. No pulmonary mass, pneumonia or pleural effusion. Medications Medications Current Medications Acetaminophen (Acetaminophen 325 Mg Tablet) 650 mg PO Q6H PRN PRN Reason: Headache/Pain Mild Scale (1-3) Last Admin: 11/09/23 21:01 Dose: 650 mg Al Hydroxide/Mg Hydroxide (Magnesium Hydrox/Alum Hydrox 30 Ml Oral.Susp) 30 ml PO Q6H PRN PRN Reason: Heartburn/Nausea Last Admin: 10/31/23 23:58 Dose: 30 ml Famotidine (Famotidine 20 Mg Tablet) 20 mg PO BID@0630,1630 YESY Last Admin: 12/07/23 05:42 Dose: 20 mg Loperamide HCl (Loperamide Hcl 2 Mg Capsule) 2 mg PO Q4H PRN PRN Reason: loose stools Last Admin: 11/12/23 11:09 Dose: 2 mg Magnesium Hydroxide (Milk Of Magnesia 30 Ml Oral.Susp) 30 ml PO DAILY PRN PRN Reason: Constipation Memantine (Memantine Hcl 5 Mg Tablet) 5 mg PO DAILY YESY Mirtazapine (Mirtazapine 15 Mg Tablet) 15 mg PO BEDTIME YESY Last Admin: 12/06/23 21:08 Dose: 15 mg Ondansetron HCl (Ondansetron Odt 4 Mg Tab.Rapdis) 4 mg TRANSLINGU Q8H PRN PRN Reason: Nausea and Vomiting Last Admin: 12/02/23 11:31 Dose: 4 mg Paliperidone (Paliperidone Er 6 Mg Tab.Er.24) 6 mg PO BEDTIME YESY Last Admin: 12/06/23 21:09 Dose: 6 mg Senna (Sennosides 8.6 Mg Tablet) 8.6 mg PO BEDTIME YESY Last Admin: 12/06/23 21:08 Dose: 8.6 mg Trazodone HCl (Trazodone Hcl 50 Mg Tablet) 50 mg PO BEDTIME PRN PRN Reason: Insomnia Last Admin: 12/02/23 20:32 Dose: 50 mg Allergies Allergies Allergy/AdvReac Type Severity Reaction Status Date / Time omeprazole Allergy Unknown Verified 10/30/23 00:09 Assessment & Plan Assessment & Plan (1) Schizophrenia: Status: Acute Code(s): F20.9 - Schizophrenia, unspecified Plan 63 YM with unspecified dementia, schizoaffective disorder and gerd admitted to geriatric psychiatry on 10/30/23. GI consulted due to dysphagia However pt is denying that he has any difficulty swallowing and witnessed to be taking ensure and eating burger and chips without problems. Decreased PO intake may be related to oral thrush and improving with Nystatin RECOMMENDATIONS: Continue Nystatin and Famotidine Please re-consult if pt notes recurrent problems Plan 1. Continue with antipsychotics as prescribed. 2. Continue with ECT 2nd session next Wednesday. 3. Continue with medical treatment. 12/04/2023: No changes, with the exception of discontinuing oral nystatin as patient has been declining same. 12/05/2023: No changes. Second ECT scheduled for tomorrow 12/05 ECT #2 today. no significant change just yet. may consider adding namenda for stimulation of cognitive impairments, abulia symptoms. stop ativan at bedtime at this time. 12/06 continue tx. start namenda 5 mg po daily. ECT tomorrow Reason for continued inpatient stay Substantial Risk for: inability to function Time Spent With Patient Time: Total time managing care of this patient today ____ minutes.
[2023-12-07] MEDS: Memantine HCl 5 MG TABLET PO (09:19)
[2023-12-07 20:00] VITALS: BP 101/60; PULSE 88; TEMP 36.7; O2SAT 95
[2023-12-07] MEDS: Paliperidone ER 6 MG TAB.ER.24 PO (20:13)
[2023-12-07] MEDS: Sennosides 8.6 MG TABLET PO (20:13)
[2023-12-07] MEDS: Mirtazapine 15 MG TABLET PO (20:13)
[2023-12-08] VITALS (14 sets, daily range): BP systolic 102–161; BP diastolic 70–106; PULSE 80–91; RESP 12–18; TEMP 36–37.7; O2SAT 93–96
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
[2023-12-08] MEDS: Lactated Ringers 1,000 ML 50 ML IVCONT (07:13)
--- NOTE | 2023-12-08 07:40 | MHC.SHP ---
Pre-Procedural Eval Section A - 24 Hr Update-Section A only Date of Service: 12/08/23 The patient is an INPATIENT: Yes Changes since office visit: No Cold of Flu in the past 2 weeks, No New Medical Problems, No Changes in Medication and No Patient answered all questions The patient has been examined within 24 hours of the surgical procedure. The History & Physical has been completed within 30 days and I have reviewed it.: Yes Section B - Complete if H&P > 30 days Chief Complaint: Schizoaffective disorder, unspecified type Allergies: Allergies Allergy/AdvReac Type Severity Reaction Status Date / Time omeprazole Allergy Unknown Verified 10/30/23 00:09 Plan I have reviewed the history and physical and performed a pertinent physical examination on my patient. No changes have occurred unless specified. Time Spent With Patient Time: Total time managing care of this patient today ____ minutes.
--- NOTE | 2023-12-08 07:55 | HO.ECTPROC ---
ECT Procedure Note Diagnosis/Treatment Date of Service: 12/08/23 Diagnosis: Catatonia and Schizoaffective Disorder Previous ECT Date: 12/06/23 Current Treatment Number: 3 Interval Clinical Notes: The patient was more responsive and talkative today, less hypoactive. He denies side effects with prior ECT. ECT done as usual, no complications, woke up well, no need of Propofol or any medications. Time: Total time managing care of this patient today ____ minutes. ECT Settings Device: THYMATRON DGx Electrode Placement: Right Unilateral Program/Pulse Width: 0.50 Energy Percent: 100 Seizure Duration By EEG (in seconds): 28 By Motor Observation (in seconds): 17 Medications Administration General Anesthetic: Etomidate (16) Muscle Relaxant: Succinylcholine (100) Ancillary Medications Anti-emetics: Zofran - Pre ECT Airway Management Airway Management: Bag Mask Ventilation Treatment Recommendations No Changes Recommended: No change Pt Tolerated Procedure w/o Issue: Yes
[2023-12-08] MEDS: Memantine HCl 5 MG TABLET PO (09:16)
[2023-12-08] MEDS: Famotidine 20 MG TABLET PO (09:16)
--- NOTE | 2023-12-08 09:36 | P.PNPSI_ITS ---
Subjective Subjective Date of Service: 12/08/23 Reason For Visit: Schizoaffective disorder, unspecified type Subjective Notes: Section 8 Interim History: Pt had ECT #3 today. He has not showered but when this brief writer, mention he needs a shower and a hair cut, he stated I'm glad they are thinking about that, I need it. He reports feeling tired. He denies SI/HI. Somewhat more aware of surroundings and needs, but still with inability to initiate this actions on his own. Review of Systems Review of Systems unremarkable Yes all other systems are reviewed and are negative Mental Status Exam Mental Status Exam Narrative: Appearance: cachectic, malnourished, in NAD Behavior: guarded, minimally engaging in conversation Psychomotor: retardation noted Speech: mostly clear, regular rate, minimally spontaneous TP: wanting to rest TC: tired, not wanting to take any medications Mood: tired Affect: constricted SI: denies HI: denies VH/AH: appears internally preoccupied Delusions: paranoid delusions Insight/judgment: impaired x 2. memory/cog: alert, not able to assess orientation as pt declines to answer questions. Diagnostics Vital Signs (24Hr): Vital Signs - 24 hr 12/07/23 20:00 12/08/23 05:27 12/08/23 05:32 Temperature 98.1 F 96.8 F Pulse Rate 88 89 Respiratory Rate 16 Blood Pressure 101/60 127/100 H 109/70 Pulse Oximetry 95 95 Oxygen Delivery Method Room Air Room Air Oxygen Flow Rate 12/08/23 05:33 12/08/23 05:40 12/08/23 06:00 Temperature 96.8 F Pulse Rate 89 Respiratory Rate 16 Blood Pressure 109/70 109/70 Pulse Oximetry 95 95 Oxygen Delivery Method Room Air Oxygen Flow Rate 12/08/23 06:00 12/08/23 06:21 12/08/23 08:04 Temperature 96.8 F 98.5 F 99.8 F Pulse Rate 89 87 87 Respiratory Rate 16 18 16 Blood Pressure 109/70 127/84 161/106 H Pulse Oximetry 95 94 96 Oxygen Delivery Method Room Air Room Air Nasal Cannula with ETCO2 Oxygen Flow Rate 2 12/08/23 08:09 12/08/23 08:14 12/08/23 08:19 Temperature Pulse Rate 85 85 80 Respiratory Rate 16 16 12 Blood Pressure 126/89 117/91 H 114/83 Pulse Oximetry 96 96 95 Oxygen Delivery Method Nasal Cannula with ETCO2 Nasal Cannula with ETCO2 Room Air Oxygen Flow Rate 2 2 12/08/23 08:34 12/08/23 08:49 12/08/23 09:10 Temperature 97 F 98.7 F Pulse Rate 91 85 89 Respiratory Rate 16 16 16 Blood Pressure 130/94 H 108/79 112/73 Pulse Oximetry 94 94 93 Oxygen Delivery Method Room Air Room Air Oxygen Flow Rate BMI result Body Mass Index 18.4 Labs 11/14/23 15:20 11/16/23 09:10 Imaging Radiology Impressions: ITS Impressions Chest X-Ray 11/14/23 15:16 IMPRESSION: No evidence of acute disease. No pulmonary mass, pneumonia or pleural effusion. Medications Medications Current Medications Acetaminophen (Acetaminophen 325 Mg Tablet) 650 mg PO Q6H PRN PRN Reason: Headache/Pain Mild Scale (1-3) Last Admin: 11/09/23 21:01 Dose: 650 mg Al Hydroxide/Mg Hydroxide (Magnesium Hydrox/Alum Hydrox 30 Ml Oral.Susp) 30 ml PO Q6H PRN PRN Reason: Heartburn/Nausea Last Admin: 10/31/23 23:58 Dose: 30 ml Famotidine (Famotidine 20 Mg Tablet) 20 mg PO BID@0630,1630 [facility] Last Admin: 12/08/23 09:16 Dose: 20 mg Loperamide HCl (Loperamide Hcl 2 Mg Capsule) 2 mg PO Q4H PRN PRN Reason: loose stools Last Admin: 11/12/23 11:09 Dose: 2 mg Magnesium Hydroxide (Milk Of Magnesia 30 Ml Oral.Susp) 30 ml PO DAILY PRN PRN Reason: Constipation Memantine (Memantine Hcl 5 Mg Tablet) 5 mg PO DAILY [facility] Last Admin: 12/08/23 09:16 Dose: 5 mg Mirtazapine (Mirtazapine 15 Mg Tablet) 15 mg PO BEDTIME [facility] Last Admin: 12/07/23 20:13 Dose: 15 mg Ondansetron HCl (Ondansetron Odt 4 Mg Tab.Rapdis) 4 mg TRANSLINGU Q8H PRN PRN Reason: Nausea and Vomiting Last Admin: 12/02/23 11:31 Dose: 4 mg Paliperidone (Paliperidone Er 6 Mg Tab.Er.24) 6 mg PO BEDTIME [facility] Last Admin: 12/07/23 20:13 Dose: 6 mg Senna (Sennosides 8.6 Mg Tablet) 8.6 mg PO BEDTIME YESY Last Admin: 12/07/23 20:13 Dose: 8.6 mg Trazodone HCl (Trazodone Hcl 50 Mg Tablet) 50 mg PO BEDTIME PRN PRN Reason: Insomnia Last Admin: 12/02/23 20:32 Dose: 50 mg Allergies Allergies Allergy/AdvReac Type Severity Reaction Status Date / Time omeprazole Allergy Unknown Verified 10/30/23 00:09 Assessment & Plan Assessment & Plan (1) Schizophrenia: Status: Acute Code(s): F20.9 - Schizophrenia, unspecified Plan 63 YM with unspecified dementia, schizoaffective disorder and gerd admitted to geriatric psychiatry on 10/30/23. GI consulted due to dysphagia However pt is denying that he has any difficulty swallowing and witnessed to be taking ensure and eating burger and chips without problems. Decreased PO intake may be related to oral thrush and improving with Nystatin RECOMMENDATIONS: Continue Nystatin and Famotidine Please re-consult if pt notes recurrent problems Plan 1. Continue with antipsychotics as prescribed. 2. Continue with ECT 2nd session next Wednesday. 3. Continue with medical treatment. 12/04/2023: No changes, with the exception of discontinuing oral nystatin as patient has been declining same. 12/05/2023: No changes. Second ECT scheduled for tomorrow 12/05 ECT #2 today. no significant change just yet. may consider adding namenda for stimulation of cognitive impairments, abulia symptoms. stop ativan at bedtime at this time. 12/06 continue tx. start namenda 5 mg po daily. ECT tomorrow 12/07 continue tx. ECT completed today. Reason for continued inpatient stay Substantial Risk for: inability to function Time Spent With Patient Time: Total time managing care of this patient today ____ minutes.
--- NOTE | 2023-12-08 14:59 | MHC.CLN ---
F/U DIET=REGULAR. ENSURE TID PROVIDES 1050 KCALS, 60 G PROTEIN. PATIENT ACCEPTS SUPPLEMENT. ENCOURAGE ADDITIONAL SNACKS AND SUPPLEMENTS FROM UNIT KITCHEN. PO INTAKE AT MEALS VARIABLE, WITH RECENT INTAKE 0-55%. CONTINUE CURRENT DIET, SUPPLEMENTS AND ENCOURAGE INTAKE ABLE. RD TO FOLLOW WEEKLY.
[2023-12-08] MEDS: Sennosides 8.6 MG TABLET PO (20:35)
[2023-12-08] MEDS: Mirtazapine 15 MG TABLET PO (20:35)
[2023-12-08] MEDS: Paliperidone ER 6 MG TAB.ER.24 PO (20:35)
[2023-12-09] MEDS: Famotidine 20 MG TABLET PO ×2 (06:37→16:25)
[2023-12-09 07:00] VITALS: BMI 18.1
[2023-12-09 08:00] VITALS: BP 97/58; PULSE 82; RESP 16; TEMP 37.2; O2SAT 94
[2023-12-09] MEDS: Memantine HCl 5 MG TABLET PO (09:06)
--- NOTE | 2023-12-09 09:08 | HO.POSTANES ---
Post Anesthesia Evaluation Post Anesthesia Evaluation Date of Service: 12/09/23 Anesthesia: General Mental Status: Awake Pain Control: Satisfactory Nausea/Vomiting: None Hydration: Adequate Anesthesia-Related Issues: No Anes. Related Issues
[2023-12-09 19:52] VITALS: BP 91/51; PULSE 73; RESP 18; TEMP 36.6; O2SAT 93
[2023-12-09] MEDS: Mirtazapine 15 MG TABLET PO (20:24)
[2023-12-09] MEDS: Paliperidone ER 6 MG TAB.ER.24 PO (20:24)
[2023-12-09] MEDS: Sennosides 8.6 MG TABLET PO (20:24)
--- NOTE | 2023-12-09 20:27 | HO.PSYCHPN ---
Subjective Subjective Date of Service: 12/09/23 Reason For Visit: Schizoaffective disorder, unspecified type Subjective Notes: Section 8 Interim History: Pt withdrawn again. Pt reports he is tired, less willing to get up even with redirection. He reports feeling tired. He denies SI/HI. Somewhat more aware of surroundings and needs, but still with inability to initiate this actions on his own. Review of Systems Review of Systems unremarkable Yes all other systems are reviewed and are negative Mental Status Exam Mental Status Exam Narrative: Appearance: cachectic, malnourished, in NAD Behavior: guarded, minimally engaging in conversation Psychomotor: retardation noted Speech: mostly clear, regular rate, minimally spontaneous TP: wanting to rest TC: tired, not wanting to take any medications Mood: tired Affect: constricted SI: denies HI: denies VH/AH: appears internally preoccupied Delusions: paranoid delusions Insight/judgment: impaired x 2. memory/cog: alert, not able to assess orientation as pt declines to answer questions. Diagnostics Vital Signs (24Hr): Vital Signs - 24 hr 12/09/23 08:00 12/09/23 19:52 Temperature 98.9 F 97.8 F Pulse Rate 82 73 Respiratory Rate 16 18 Blood Pressure 97/58 L 91/51 L Pulse Oximetry 94 93 Oxygen Delivery Method Room Air Room Air BMI result Body Mass Index 18.4 Labs 11/14/23 15:20 11/16/23 09:10 Imaging Radiology Impressions: ITS Impressions Chest X-Ray 11/14/23 15:16 IMPRESSION: No evidence of acute disease. No pulmonary mass, pneumonia or pleural effusion. Medications Medications Current Medications Acetaminophen (Acetaminophen 325 Mg Tablet) 650 mg PO Q6H PRN PRN Reason: Headache/Pain Mild Scale (1-3) Last Admin: 11/09/23 21:01 Dose: 650 mg Al Hydroxide/Mg Hydroxide (Magnesium Hydrox/Alum Hydrox 30 Ml Oral.Susp) 30 ml PO Q6H PRN PRN Reason: Heartburn/Nausea Last Admin: 10/31/23 23:58 Dose: 30 ml Famotidine (Famotidine 20 Mg Tablet) 20 mg PO BID@0630,1630 YESY Last Admin: 12/09/23 16:25 Dose: 20 mg Loperamide HCl (Loperamide Hcl 2 Mg Capsule) 2 mg PO Q4H PRN PRN Reason: loose stools Last Admin: 11/12/23 11:09 Dose: 2 mg Magnesium Hydroxide (Milk Of Magnesia 30 Ml Oral.Susp) 30 ml PO DAILY PRN PRN Reason: Constipation Memantine (Memantine Hcl 5 Mg Tablet) 5 mg PO DAILY YESY Last Admin: 12/09/23 09:06 Dose: 5 mg Mirtazapine (Mirtazapine 15 Mg Tablet) 15 mg PO BEDTIME YESY Last Admin: 12/09/23 20:24 Dose: 15 mg Ondansetron HCl (Ondansetron Odt 4 Mg Tab.Rapdis) 4 mg TRANSLINGU Q8H PRN PRN Reason: Nausea and Vomiting Last Admin: 12/02/23 11:31 Dose: 4 mg Paliperidone (Paliperidone Er 6 Mg Tab.Er.24) 6 mg PO BEDTIME YESY Last Admin: 12/09/23 20:24 Dose: 6 mg Senna (Sennosides 8.6 Mg Tablet) 8.6 mg PO BEDTIME YESY Last Admin: 12/09/23 20:24 Dose: 8.6 mg Trazodone HCl (Trazodone Hcl 50 Mg Tablet) 50 mg PO BEDTIME PRN PRN Reason: Insomnia Last Admin: 12/02/23 20:32 Dose: 50 mg Allergies Allergies Allergy/AdvReac Type Severity Reaction Status Date / Time omeprazole Allergy Unknown Verified 10/30/23 00:09 Assessment & Plan Assessment & Plan (1) Schizophrenia: Status: Acute Code(s): F20.9 - Schizophrenia, unspecified Plan 63 YM with unspecified dementia, schizoaffective disorder and gerd admitted to geriatric psychiatry on 10/30/23. GI consulted due to dysphagia However pt is denying that he has any difficulty swallowing and witnessed to be taking ensure and eating burger and chips without problems. Decreased PO intake may be related to oral thrush and improving with Nystatin RECOMMENDATIONS: Continue Nystatin and Famotidine Please re-consult if pt notes recurrent problems Plan 1. Continue with antipsychotics as prescribed. 2. Continue with ECT 2nd session next Wednesday. 3. Continue with medical treatment. 12/04/2023: No changes, with the exception of discontinuing oral nystatin as patient has been declining same. 12/05/2023: No changes. Second ECT scheduled for tomorrow 6/3 ECT #2 today. no significant change just yet. may consider adding namenda for stimulation of cognitive impairments, abulia symptoms. stop ativan at bedtime at this time. 12/06 continue tx. start namenda 5 mg po daily. ECT tomorrow 12/07 more aware of surroundings 12/08 continue tx. Reason for continued inpatient stay Substantial Risk for: inability to function Time Spent With Patient Time: Total time managing care of this patient today ____ minutes.
[2023-12-10] VITALS (10 sets, daily range): BP systolic 108–129; BP diastolic 55–95; PULSE 70–95; RESP 12–18; TEMP 36.2–36.9; O2SAT 93–100
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
--- NOTE | 2023-12-10 07:43 | MHC.SHP ---
Pre-Procedural Eval Section A - 24 Hr Update-Section A only Date of Service: 12/10/23 The patient is an INPATIENT: Yes Changes since office visit: No Cold of Flu in the past 2 weeks, No New Medical Problems, No Changes in Medication and No Patient answered all questions The patient has been examined within 24 hours of the surgical procedure. The History & Physical has been completed within 30 days and I have reviewed it.: Yes Section B - Complete if H&P > 30 days Chief Complaint: Schizoaffective disorder, unspecified type Allergies: Allergies Allergy/AdvReac Type Severity Reaction Status Date / Time omeprazole Allergy Unknown Verified 10/30/23 00:09 Plan I have reviewed the history and physical and performed a pertinent physical examination on my patient. No changes have occurred unless specified. Time Spent With Patient Time: Total time managing care of this patient today ____ minutes.
[2023-12-10] MEDS: Memantine HCl 5 MG TABLET PO (09:23)
[2023-12-10] MEDS: Famotidine 20 MG TABLET PO ×2 (09:23→16:39)
--- NOTE | 2023-12-10 14:19 | P.PNPSI_ITS ---
Subjective Subjective Date of Service: 12/10/23 Reason For Visit: Schizoaffective disorder, unspecified type Subjective Notes: Section 7 and Section 8 Interim History: The nursing staff reported the patient had been hypoactive but a little more active since ECT was started. Today he had ECT and came back. On interview the patient reports that he feels tired after ECT but he is more reactive now. Mental Status Exam Mental Status Exam Patient Appearance: Unkempt Patient Orientation: Person and Situation Level of Consciousness: Awake and Appropriate Patient Behavior: Guarded and Passive Mood Description: Withdrawn Affect Description: Constricted Patient Cognition Impaired: Yes Ability to Follow Directions: Good Speech Pattern: Clear Hallucinations: None Delusions: Ideas of Reference Thought Process: Distracted and Slowed Thinking Thought Content: positive for [place], positive for Poverty of Content and positive for Thought Blocking Judgement: Poor Diagnostics Vital Signs (24Hr): Vital Signs - 24 hr 12/09/23 19:52 12/10/23 05:47 12/10/23 06:33 Temperature 97.8 F 98.5 F 97.9 F Pulse Rate 73 70 83 Respiratory Rate 18 18 16 Blood Pressure 91/51 L 109/87 129/79 Pulse Oximetry 93 95 93 Oxygen Delivery Method Room Air Room Air Oxygen Flow Rate 12/10/23 08:00 12/10/23 08:10 12/10/23 08:15 Temperature 98.0 F 97.2 F Pulse Rate 92 90 92 Respiratory Rate 16 16 12 Blood Pressure 125/89 108/77 111/81 Pulse Oximetry 95 100 96 Oxygen Delivery Method Room Air Nasal Cannula with ETCO2 Nasal Cannula with ETCO2 Oxygen Flow Rate 2 2 12/10/23 08:20 12/10/23 08:25 12/10/23 08:40 Temperature 97.2 F Pulse Rate 91 95 91 Respiratory Rate 14 12 14 Blood Pressure 113/95 H 109/83 110/75 Pulse Oximetry 96 96 94 Oxygen Delivery Method Nasal Cannula with ETCO2 Nasal Cannula with ETCO2 Room Air Oxygen Flow Rate 2 2 12/10/23 09:13 Temperature 98.0 F Pulse Rate 92 Respiratory Rate 16 Blood Pressure 125/89 Pulse Oximetry 95 Oxygen Delivery Method Oxygen Flow Rate BMI result Body Mass Index 18.1 Labs 11/14/23 15:20 11/16/23 09:10 Imaging Radiology Impressions: ITS Impressions Chest X-Ray 11/14/23 15:16 IMPRESSION: No evidence of acute disease. No pulmonary mass, pneumonia or pleural effusion. Medications Medications Current Medications Acetaminophen (Acetaminophen 325 Mg Tablet) 650 mg PO Q6H PRN PRN Reason: Headache/Pain Mild Scale (1-3) Last Admin: 11/09/23 21:01 Dose: 650 mg Al Hydroxide/Mg Hydroxide (Magnesium Hydrox/Alum Hydrox 30 Ml Oral.Susp) 30 ml PO Q6H PRN PRN Reason: Heartburn/Nausea Last Admin: 10/31/23 23:58 Dose: 30 ml Famotidine (Famotidine 20 Mg Tablet) 20 mg PO BID@0630,1630 [facility] Last Admin: 12/10/23 09:23 Dose: 20 mg Loperamide HCl (Loperamide Hcl 2 Mg Capsule) 2 mg PO Q4H PRN PRN Reason: loose stools Last Admin: 11/12/23 11:09 Dose: 2 mg Magnesium Hydroxide (Milk Of Magnesia 30 Ml Oral.Susp) 30 ml PO DAILY PRN PRN Reason: Constipation Memantine (Memantine Hcl 5 Mg Tablet) 5 mg PO DAILY [facility] Last Admin: 12/10/23 09:23 Dose: 5 mg Mirtazapine (Mirtazapine 15 Mg Tablet) 15 mg PO BEDTIME YESY Last Admin: 12/09/23 20:24 Dose: 15 mg Ondansetron HCl (Ondansetron Odt 4 Mg Tab.Rapdis) 4 mg TRANSLINGU Q8H PRN PRN Reason: Nausea and Vomiting Last Admin: 12/02/23 11:31 Dose: 4 mg Paliperidone (Paliperidone Er 6 Mg Tab.Er.24) 6 mg PO BEDTIME [facility] Last Admin: 12/09/23 20:24 Dose: 6 mg Senna (Sennosides 8.6 Mg Tablet) 8.6 mg PO BEDTIME YESY Last Admin: 12/09/23 20:24 Dose: 8.6 mg Trazodone HCl (Trazodone Hcl 50 Mg Tablet) 50 mg PO BEDTIME PRN PRN Reason: Insomnia Last Admin: 12/02/23 20:32 Dose: 50 mg Allergies Allergies Allergy/AdvReac Type Severity Reaction Status Date / Time omeprazole Allergy Unknown Verified 10/30/23 00:09 Assessment & Plan Assessment & Plan (1) Schizophrenia: Status: Acute Code(s): F20.9 - Schizophrenia, unspecified Plan 63 YM with unspecified dementia, schizoaffective disorder and gerd admitted to geriatric psychiatry on 10/30/23. GI consulted due to dysphagia However pt is denying that he has any difficulty swallowing and witnessed to be taking ensure and eating burger and chips without problems. Decreased PO intake may be related to oral thrush and improving with Nystatin RECOMMENDATIONS: Continue Nystatin and Famotidine Please re-consult if pt notes recurrent problems Plan 1. Continue with antipsychotics as prescribed. 2. Continue with ECT 2nd session next Wednesday. 3. Continue with medical treatment. 12/04/2023: No changes, with the exception of discontinuing oral nystatin as patient has been declining same. 12/05/2023: No changes. Second ECT scheduled for tomorrow 12/05 ECT #2 today. no significant change just yet. may consider adding namenda for stimulation of cognitive impairments, abulia symptoms. stop ativan at bedtime at this time. 12/06 continue tx. start namenda 5 mg po daily. ECT tomorrow 12/07 more aware of surroundings 12/08 continue tx. 12/09 continue same treatment ECT on Wednesday Reason for continued inpatient stay Substantial Risk for: inability to function, rapid decompensation and med/psych decompensation Time Spent With Patient Time: Total time managing care of this patient today __20__ minutes.
[2023-12-10] MEDS: Mirtazapine 15 MG TABLET PO (20:58)
[2023-12-10] MEDS: Sennosides 8.6 MG TABLET PO (20:58)
[2023-12-10] MEDS: Paliperidone ER 6 MG TAB.ER.24 PO (20:58)
--- NOTE | 2023-12-10 22:44 | HO.ECTPROC ---
ECT Procedure Note Diagnosis/Treatment Date of Service: 12/10/23 Diagnosis: Catatonia and Schizoaffective Disorder Previous ECT Date: 12/08/23 Current Treatment Number: 4 Treatment: Series Interval Clinical Notes: The patient was more responsive and talkative today, flat dysphoric He denies side effects with prior ECT. ECT done as usual, no complications, woke up well, no need of Propofol or any medications. Time: Total time managing care of this patient today ____ minutes. ECT Settings Device: THYMATRON DGx Electrode Placement: Right Unilateral Program/Pulse Width: 0.50 Energy Percent: 100 Seizure Duration By EEG (in seconds): 45 Medications Administration General Anesthetic: Etomidate (16) Muscle Relaxant: Succinylcholine (100) Ancillary Medications Anti-emetics: Zofran - Pre ECT Airway Management Airway Management: Bag Mask Ventilation Treatment Recommendations No Changes Recommended: No change Pt Tolerated Procedure w/o Issue: Yes
[2023-12-11] MEDS: Famotidine 20 MG TABLET PO ×2 (05:35→17:30)
[2023-12-11 08:00] VITALS: BP 109/66; PULSE 72; RESP 18; TEMP 36.6; O2SAT 94
[2023-12-11] MEDS: Memantine HCl 5 MG TABLET PO ×2 (08:53→20:54)
--- NOTE | 2023-12-11 13:20 | HO.PSYCHPN ---
Subjective Subjective Date of Service: 12/11/23 Reason For Visit: Schizoaffective disorder, unspecified type Subjective Notes: Section 8 Interim History: Pt slept through the night. His speech is much more spontaneous. He asks about hair cut and cutting his nails which he has not done in almost one year. He asks about his medications and reason for a medication that is used for dementia- he asks if he has been dx with dementia. pt explained namenda helps with abulia and hoping it may boost effects of ECT. He denies SI/HI. Although he continues to report that his sisters want him here, although he does accept somewhat challenging that notion. Review of Systems Review of Systems unremarkable Yes all other systems are reviewed and are negative Mental Status Exam Mental Status Exam Narrative: Appearance: cachectic, malnourished, in NAD Behavior: guarded, minimally engaging in conversation Psychomotor: retardation noted Speech: mostly clear, regular rate, minimally spontaneous TP: wanting to rest TC: tired, not wanting to take any medications Mood: tired Affect: constricted SI: denies HI: denies VH/AH: appears internally preoccupied Delusions: paranoid delusions Insight/judgment: impaired x 2. memory/cog: alert, not able to assess orientation as pt declines to answer questions. Diagnostics Vital Signs (24Hr): Vital Signs - 24 hr 12/10/23 20:00 12/11/23 08:00 Temperature 98 F 97.8 F Pulse Rate 81 72 Respiratory Rate 18 18 Blood Pressure 109/55 L 109/66 Pulse Oximetry 94 94 Oxygen Delivery Method Room Air BMI result Body Mass Index 18.1 Labs 11/14/23 15:20 11/16/23 09:10 Imaging Radiology Impressions: ITS Impressions Chest X-Ray 11/14/23 15:16 IMPRESSION: No evidence of acute disease. No pulmonary mass, pneumonia or pleural effusion. Medications Medications Current Medications Acetaminophen (Acetaminophen 325 Mg Tablet) 650 mg PO Q6H PRN PRN Reason: Headache/Pain Mild Scale (1-3) Last Admin: 11/09/23 21:01 Dose: 650 mg Al Hydroxide/Mg Hydroxide (Magnesium Hydrox/Alum Hydrox 30 Ml Oral.Susp) 30 ml PO Q6H PRN PRN Reason: Heartburn/Nausea Last Admin: 10/31/23 23:58 Dose: 30 ml Famotidine (Famotidine 20 Mg Tablet) 20 mg PO BID@0630,1630 [facility] Last Admin: 12/11/23 05:35 Dose: 20 mg Loperamide HCl (Loperamide Hcl 2 Mg Capsule) 2 mg PO Q4H PRN PRN Reason: loose stools Last Admin: 11/12/23 11:09 Dose: 2 mg Magnesium Hydroxide (Milk Of Magnesia 30 Ml Oral.Susp) 30 ml PO DAILY PRN PRN Reason: Constipation Memantine (Memantine Hcl 5 Mg Tablet) 5 mg PO DAILY [facility] Last Admin: 12/11/23 08:53 Dose: 5 mg Mirtazapine (Mirtazapine 15 Mg Tablet) 15 mg PO BEDTIME [facility] Last Admin: 12/10/23 20:58 Dose: 15 mg Ondansetron HCl (Ondansetron Odt 4 Mg Tab.Rapdis) 4 mg TRANSLINGU Q8H PRN PRN Reason: Nausea and Vomiting Last Admin: 12/02/23 11:31 Dose: 4 mg Paliperidone (Paliperidone Er 6 Mg Tab.Er.24) 6 mg PO BEDTIME [facility] Last Admin: 12/10/23 20:58 Dose: 6 mg Senna (Sennosides 8.6 Mg Tablet) 8.6 mg PO BEDTIME [facility] Last Admin: 12/10/23 20:58 Dose: 8.6 mg Trazodone HCl (Trazodone Hcl 50 Mg Tablet) 50 mg PO BEDTIME PRN PRN Reason: Insomnia Last Admin: 12/02/23 20:32 Dose: 50 mg Allergies Allergies Allergy/AdvReac Type Severity Reaction Status Date / Time omeprazole Allergy Unknown Verified 10/30/23 00:09 Assessment & Plan Assessment & Plan (1) Schizophrenia: Status: Acute Code(s): F20.9 - Schizophrenia, unspecified Plan 63 YM with unspecified dementia, schizoaffective disorder and gerd admitted to geriatric psychiatry on 10/30/23. GI consulted due to dysphagia However pt is denying that he has any difficulty swallowing and witnessed to be taking ensure and eating burger and chips without problems. Decreased PO intake may be related to oral thrush and improving with Nystatin RECOMMENDATIONS: Continue Nystatin and Famotidine Please re-consult if pt notes recurrent problems Plan 1. Continue with antipsychotics as prescribed. 2. Continue with ECT 2nd session next Wednesday. 3. Continue with medical treatment. 12/04/2023: No changes, with the exception of discontinuing oral nystatin as patient has been declining same. 12/05/2023: No changes. Second ECT scheduled for tomorrow 12/05 ECT #2 today. no significant change just yet. may consider adding namenda for stimulation of cognitive impairments, abulia symptoms. stop ativan at bedtime at this time. 12/06 continue tx. start namenda 5 mg po daily. ECT tomorrow 12/07 more aware of surroundings 12/08 continue tx. 12/09 continue same treatment ECT on Sunday 12/10 continue tx. namenda increase to 5mg po BID. Reason for continued inpatient stay Substantial Risk for: inability to function Time Spent With Patient Time: Total time managing care of this patient today ____ minutes.
[2023-12-11 20:00] VITALS: BP 91/56; PULSE 84; RESP 16; TEMP 36.2; O2SAT 94
[2023-12-11] MEDS: Paliperidone ER 6 MG TAB.ER.24 PO (20:54)
[2023-12-11] MEDS: Mirtazapine 15 MG TABLET PO (20:54)
[2023-12-11] MEDS: Sennosides 8.6 MG TABLET PO (20:54)
[2023-12-12] MEDS: Famotidine 20 MG TABLET PO ×2 (06:02→16:39)
[2023-12-12 08:15] VITALS: BP 127/84; PULSE 97; RESP 16; TEMP 36.4; O2SAT 96
[2023-12-12] MEDS: Memantine HCl 5 MG TABLET PO ×2 (09:22→21:18)
--- NOTE | 2023-12-12 19:31 | HO.PSYCHPN ---
Subjective Subjective Date of Service: 12/12/23 Reason For Visit: Schizoaffective disorder, unspecified type Subjective Notes: Section 8 Interim History: Pt slept through the night. His speech is much more spontaneous. He asks about hair cut and cutting his nails which he has not done in almost one year. He asks about his medications and reason for a medication that is used for dementia- he asks if he has been dx with dementia. pt explained namenda helps with abulia and hoping it may boost effects of ECT. He denies SI/HI. Although he continues to report that his sisters want him here, although he does accept somewhat challenging that notion. Review of Systems Review of Systems unremarkable Yes all other systems are reviewed and are negative Mental Status Exam Mental Status Exam Narrative: Appearance: cachectic, malnourished, in NAD Behavior: guarded, minimally engaging in conversation Psychomotor: retardation noted Speech: mostly clear, regular rate, minimally spontaneous TP: wanting to rest TC: tired, not wanting to take any medications Mood: tired Affect: constricted SI: denies HI: denies VH/AH: appears internally preoccupied Delusions: paranoid delusions Insight/judgment: impaired x 2. memory/cog: alert, not able to assess orientation as pt declines to answer questions. Diagnostics Vital Signs (24Hr): Vital Signs - 24 hr 12/11/23 20:00 12/12/23 08:15 Temperature 97.2 F 97.5 F Pulse Rate 84 97 Respiratory Rate 16 16 Blood Pressure 91/56 L 127/84 Pulse Oximetry 94 96 Oxygen Delivery Method Room Air Room Air BMI result Body Mass Index 18.1 Labs 11/14/23 15:20 11/16/23 09:10 Imaging Radiology Impressions: ITS Impressions Chest X-Ray 11/14/23 15:16 IMPRESSION: No evidence of acute disease. No pulmonary mass, pneumonia or pleural effusion. Medications Medications Current Medications Acetaminophen (Acetaminophen 325 Mg Tablet) 650 mg PO Q6H PRN PRN Reason: Headache/Pain Mild Scale (1-3) Last Admin: 11/09/23 21:01 Dose: 650 mg Al Hydroxide/Mg Hydroxide (Magnesium Hydrox/Alum Hydrox 30 Ml Oral.Susp) 30 ml PO Q6H PRN PRN Reason: Heartburn/Nausea Last Admin: 10/31/23 23:58 Dose: 30 ml Famotidine (Famotidine 20 Mg Tablet) 20 mg PO BID@0630,1630 [facility] Last Admin: 12/12/23 16:39 Dose: 20 mg Loperamide HCl (Loperamide Hcl 2 Mg Capsule) 2 mg PO Q4H PRN PRN Reason: loose stools Last Admin: 11/12/23 11:09 Dose: 2 mg Magnesium Hydroxide (Milk Of Magnesia 30 Ml Oral.Susp) 30 ml PO DAILY PRN PRN Reason: Constipation Memantine (Memantine Hcl 5 Mg Tablet) 5 mg PO BID [facility] Last Admin: 12/12/23 09:22 Dose: 5 mg Mirtazapine (Mirtazapine 15 Mg Tablet) 15 mg PO BEDTIME [facility] Last Admin: 12/11/23 20:54 Dose: 15 mg Ondansetron HCl (Ondansetron Odt 4 Mg Tab.Rapdis) 4 mg TRANSLINGU Q8H PRN PRN Reason: Nausea and Vomiting Last Admin: 12/02/23 11:31 Dose: 4 mg Paliperidone (Paliperidone Er 6 Mg Tab.Er.24) 6 mg PO BEDTIME [facility] Last Admin: 12/11/23 20:54 Dose: 6 mg Senna (Sennosides 8.6 Mg Tablet) 8.6 mg PO BEDTIME [facility] Last Admin: 12/11/23 20:54 Dose: 8.6 mg Trazodone HCl (Trazodone Hcl 50 Mg Tablet) 50 mg PO BEDTIME PRN PRN Reason: Insomnia Last Admin: 12/02/23 20:32 Dose: 50 mg Allergies Allergies Allergy/AdvReac Type Severity Reaction Status Date / Time omeprazole Allergy Unknown Verified 10/30/23 00:09 Assessment & Plan Assessment & Plan (1) Schizophrenia: Status: Acute Code(s): F20.9 - Schizophrenia, unspecified Plan 63 YM with unspecified dementia, schizoaffective disorder and gerd admitted to geriatric psychiatry on 10/30/23. GI consulted due to dysphagia However pt is denying that he has any difficulty swallowing and witnessed to be taking ensure and eating burger and chips without problems. Decreased PO intake may be related to oral thrush and improving with Nystatin RECOMMENDATIONS: Continue Nystatin and Famotidine Please re-consult if pt notes recurrent problems Plan 1. Continue with antipsychotics as prescribed. 2. Continue with ECT 2nd session next Wednesday. 3. Continue with medical treatment. 12/04/2023: No changes, with the exception of discontinuing oral nystatin as patient has been declining same. 12/05/2023: No changes. Second ECT scheduled for tomorrow 12/05 ECT #2 today. no significant change just yet. may consider adding namenda for stimulation of cognitive impairments, abulia symptoms. stop ativan at bedtime at this time. 12/06 continue tx. start namenda 5 mg po daily. ECT tomorrow 12/07 more aware of surroundings 12/08 continue tx. 12/09 continue same treatment ECT on Wednesday Reason for continued inpatient stay Substantial Risk for: inability to function Time Spent With Patient Time: Total time managing care of this patient today ____ minutes.
[2023-12-12 20:00] VITALS: BP 146/96; PULSE 96; RESP 18; TEMP 36.2; O2SAT 95
[2023-12-12] MEDS: traZODone HCL 50 MG TABLET PO (21:18)
[2023-12-12] MEDS: Paliperidone ER 6 MG TAB.ER.24 PO (21:18)
[2023-12-12] MEDS: Mirtazapine 15 MG TABLET PO (21:18)
[2023-12-12] MEDS: Sennosides 8.6 MG TABLET PO (21:18)
[2023-12-13] VITALS (11 sets, daily range): BP systolic 109–140; BP diastolic 74–103; PULSE 83–123; RESP 14–20; TEMP 36.4–37.2; O2SAT 94–99
--- NOTE | 2023-12-13 06:55 | MHC.SHP ---
Pre-Procedural Eval Section A - 24 Hr Update-Section A only Date of Service: 12/13/23 The patient is an INPATIENT: Yes Changes since office visit: No Cold of Flu in the past 2 weeks, No New Medical Problems, No Changes in Medication and No Patient answered all questions The patient has been examined within 24 hours of the surgical procedure. The History & Physical has been completed within 30 days and I have reviewed it.: Yes Section B - Complete if H&P > 30 days Chief Complaint: Schizoaffective disorder, unspecified type Allergies: Allergies Allergy/AdvReac Type Severity Reaction Status Date / Time omeprazole Allergy Unknown Verified 10/30/23 00:09 Plan I have reviewed the history and physical and performed a pertinent physical examination on my patient. No changes have occurred unless specified. Time Spent With Patient Time: Total time managing care of this patient today ____ minutes.
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
--- NOTE | 2023-12-13 08:17 | HO.ECTPROC ---
ECT Procedure Note Diagnosis/Treatment Date of Service: 12/13/23 Diagnosis: Catatonia and Schizoaffective Disorder Previous ECT Date: 12/10/23 Current Treatment Number: 5 Treatment: Series Interval Clinical Notes: The patient has more spontaneous speech, still dysphoric and hypoacitve but much better since ECT was started. He denied side effects with prior ECT. ECT done as usual, no complications, woke up well wihtout any other medications. Time: Total time managing care of this patient today ____ minutes. ECT Settings Device: THYMATRON DGx Electrode Placement: Right Unilateral Program/Pulse Width: 0.50 Energy Percent: 100 Seizure Duration By EEG (in seconds): 54 By Motor Observation (in seconds): 21 Medications Administration General Anesthetic: Etomidate (16) Muscle Relaxant: Succinylcholine (100) Ancillary Medications Analgesics: Torodol - Pre ECT Anti-emetics: Zofran - Pre ECT Airway Management Airway Management: Bag Mask Ventilation Treatment Recommendations No Changes Recommended: No change Pt Tolerated Procedure w/o Issue: Yes
[2023-12-13] MEDS: Memantine HCl 5 MG TABLET PO ×2 (09:40→20:19)
[2023-12-13] MEDS: Famotidine 20 MG TABLET PO ×2 (09:41→17:55)
--- NOTE | 2023-12-13 10:17 | HO.PSYCHPN ---
Subjective Subjective Date of Service: 12/13/23 Reason For Visit: Schizoaffective disorder, unspecified type Subjective Notes: Section 8 Interim History: Pt slept through the night. Pt appears confused after ECT. He was also slightly somnolent. He did go out later in the day for fresh air. He seem less confused later in the day. BP slightly elevated from his baseline. He denies SI/HI. Review of Systems Review of Systems unremarkable Yes all other systems are reviewed and are negative Mental Status Exam Mental Status Exam Narrative: Appearance: cachectic, malnourished, in NAD Behavior: guarded, minimally engaging in conversation Psychomotor: retardation noted Speech: mostly clear, regular rate, minimally spontaneous TP: wanting to rest TC: tired, not wanting to take any medications Mood: tired Affect: constricted SI: denies HI: denies VH/AH: appears internally preoccupied Delusions: paranoid delusions Insight/judgment: impaired x 2. memory/cog: alert, not able to assess orientation as pt declines to answer questions. Diagnostics Vital Signs (24Hr): Vital Signs - 24 hr 12/12/23 20:00 12/13/23 05:40 12/13/23 05:40 Temperature 97.1 F 98.1 F 98.1 F Pulse Rate 96 83 83 Respiratory Rate 18 20 20 Blood Pressure 146/96 H 131/98 H 131/98 H Pulse Oximetry 95 96 96 Oxygen Delivery Method Room Air Room Air Oxygen Flow Rate 12/13/23 06:47 12/13/23 08:23 12/13/23 08:28 Temperature 98.1 F 98.8 F Pulse Rate 123 H 94 98 Respiratory Rate 14 16 16 Blood Pressure 111/79 139/100 H 130/103 H Pulse Oximetry 94 99 96 Oxygen Delivery Method Room Air Nasal Cannula with ETCO2 Nasal Cannula with ETCO2 Oxygen Flow Rate 3 3 12/13/23 08:33 12/13/23 08:38 12/13/23 08:52 Temperature Pulse Rate 96 113 H 118 H Respiratory Rate 16 16 16 Blood Pressure 132/94 H 136/99 H 128/94 H Pulse Oximetry 96 96 95 Oxygen Delivery Method Nasal Cannula with ETCO2 Nasal Cannula with ETCO2 Room Air Oxygen Flow Rate 3 2 12/13/23 09:07 12/13/23 09:37 12/13/23 09:39 Temperature 98.9 F 97.5 F 97.5 F Pulse Rate 108 H 120 H 120 H Respiratory Rate 16 16 15 Blood Pressure 140/93 H 120/83 120/83 Pulse Oximetry 95 97 Oxygen Delivery Method Room Air Room Air Oxygen Flow Rate BMI result Body Mass Index 18.1 Labs 11/14/23 15:20 11/16/23 09:10 Imaging Radiology Impressions: ITS Impressions Chest X-Ray 11/14/23 15:16 IMPRESSION: No evidence of acute disease. No pulmonary mass, pneumonia or pleural effusion. Medications Medications Current Medications Acetaminophen (Acetaminophen 325 Mg Tablet) 650 mg PO Q6H PRN PRN Reason: Headache/Pain Mild Scale (1-3) Last Admin: 11/09/23 21:01 Dose: 650 mg Al Hydroxide/Mg Hydroxide (Magnesium Hydrox/Alum Hydrox 30 Ml Oral.Susp) 30 ml PO Q6H PRN PRN Reason: Heartburn/Nausea Last Admin: 10/31/23 23:58 Dose: 30 ml Famotidine (Famotidine 20 Mg Tablet) 20 mg PO BID@0630,1630 [facility] Last Admin: 12/13/23 09:41 Dose: 20 mg Loperamide HCl (Loperamide Hcl 2 Mg Capsule) 2 mg PO Q4H PRN PRN Reason: loose stools Last Admin: 11/12/23 11:09 Dose: 2 mg Magnesium Hydroxide (Milk Of Magnesia 30 Ml Oral.Susp) 30 ml PO DAILY PRN PRN Reason: Constipation Memantine (Memantine Hcl 5 Mg Tablet) 5 mg PO BID [facility] Last Admin: 12/13/23 09:40 Dose: 5 mg Mirtazapine (Mirtazapine 15 Mg Tablet) 15 mg PO BEDTIME [facility] Last Admin: 12/12/23 21:18 Dose: 15 mg Ondansetron HCl (Ondansetron Odt 4 Mg Tab.Rapdis) 4 mg TRANSLINGU Q8H PRN PRN Reason: Nausea and Vomiting Last Admin: 12/02/23 11:31 Dose: 4 mg Paliperidone (Paliperidone Er 6 Mg Tab.Er.24) 6 mg PO BEDTIME [facility] Last Admin: 12/12/23 21:18 Dose: 6 mg Senna (Sennosides 8.6 Mg Tablet) 8.6 mg PO BEDTIME [facility] Last Admin: 12/12/23 21:18 Dose: 8.6 mg Trazodone HCl (Trazodone Hcl 50 Mg Tablet) 50 mg PO BEDTIME PRN PRN Reason: Insomnia Last Admin: 12/12/23 21:18 Dose: 50 mg Allergies Allergies Allergy/AdvReac Type Severity Reaction Status Date / Time omeprazole Allergy Unknown Verified 10/30/23 00:09 Assessment & Plan Assessment & Plan (1) Schizophrenia: Status: Acute Code(s): F20.9 - Schizophrenia, unspecified Plan 63 YM with unspecified dementia, schizoaffective disorder and gerd admitted to geriatric psychiatry on 10/30/23. GI consulted due to dysphagia However pt is denying that he has any difficulty swallowing and witnessed to be taking ensure and eating burger and chips without problems. Decreased PO intake may be related to oral thrush and improving with Nystatin RECOMMENDATIONS: Continue Nystatin and Famotidine Please re-consult if pt notes recurrent problems Plan 1. Continue with antipsychotics as prescribed. 2. Continue with ECT 2nd session next Wednesday. 3. Continue with medical treatment. 12/04/2023: No changes, with the exception of discontinuing oral nystatin as patient has been declining same. 12/05/2023: No changes. Second ECT scheduled for tomorrow 12/05 ECT #2 today. no significant change just yet. may consider adding namenda for stimulation of cognitive impairments, abulia symptoms. stop ativan at bedtime at this time. 12/06 continue tx. start namenda 5 mg po daily. ECT tomorrow 12/07 more aware of surroundings ECT #3 12/08 continue tx. 12/09 continue same treatment ECT on Tuesday 12/12 ECT # 4 slightly confused after it. later more oriented. Reason for continued inpatient stay Substantial Risk for: inability to function Time Spent With Patient Time: Total time managing care of this patient today ____ minutes.
[2023-12-13] MEDS: Sennosides 8.6 MG TABLET PO (20:19)
[2023-12-13] MEDS: Paliperidone ER 6 MG TAB.ER.24 PO (20:19)
[2023-12-13] MEDS: Mirtazapine 15 MG TABLET PO (20:19)
[2023-12-14] MEDS: Famotidine 20 MG TABLET PO ×2 (06:00→16:57)
[2023-12-14 08:00] VITALS: BP 115/85; PULSE 102; RESP 16; TEMP 36.9; O2SAT 95
--- NOTE | 2023-12-14 09:16 | P.PNPSI_ITS ---
Subjective Subjective Date of Service: 12/14/23 Reason For Visit: Schizoaffective disorder, unspecified type Subjective Notes: Section 8 Interim History: Pt slept most of the night. He was mostly in bed again. He reports feeling tired. Not as visible nor talkative as weekend. VS stable. No behavioral concerns. Diagnostics Vital Signs (24Hr): Vital Signs - 24 hr 12/13/23 09:37 12/13/23 09:39 12/13/23 20:00 Temperature 97.5 F 97.5 F 98.9 F Pulse Rate 120 H 120 H 98 Respiratory Rate 16 15 Blood Pressure 120/83 120/83 109/74 Pulse Oximetry 97 95 Oxygen Delivery Method Room Air Room Air 12/14/23 08:00 Temperature 98.4 F Pulse Rate 102 H Respiratory Rate 16 Blood Pressure 115/85 Pulse Oximetry 95 Oxygen Delivery Method Room Air BMI result Body Mass Index 18.1 Labs 11/14/23 15:20 11/16/23 09:10 Imaging Radiology Impressions: ITS Impressions Chest X-Ray 11/14/23 15:16 IMPRESSION: No evidence of acute disease. No pulmonary mass, pneumonia or pleural effusion. Medications Medications Current Medications Acetaminophen (Acetaminophen 325 Mg Tablet) 650 mg PO Q6H PRN PRN Reason: Headache/Pain Mild Scale (1-3) Last Admin: 11/09/23 21:01 Dose: 650 mg Al Hydroxide/Mg Hydroxide (Magnesium Hydrox/Alum Hydrox 30 Ml Oral.Susp) 30 ml PO Q6H PRN PRN Reason: Heartburn/Nausea Last Admin: 10/31/23 23:58 Dose: 30 ml Famotidine (Famotidine 20 Mg Tablet) 20 mg PO BID@0630,1630 [facility] Last Admin: 12/14/23 06:00 Dose: 20 mg Loperamide HCl (Loperamide Hcl 2 Mg Capsule) 2 mg PO Q4H PRN PRN Reason: loose stools Last Admin: 11/12/23 11:09 Dose: 2 mg Magnesium Hydroxide (Milk Of Magnesia 30 Ml Oral.Susp) 30 ml PO DAILY PRN PRN Reason: Constipation Memantine (Memantine Hcl 5 Mg Tablet) 5 mg PO BID [facility] Last Admin: 12/13/23 20:19 Dose: 5 mg Mirtazapine (Mirtazapine 15 Mg Tablet) 15 mg PO BEDTIME [facility] Last Admin: 12/13/23 20:19 Dose: 15 mg Ondansetron HCl (Ondansetron Odt 4 Mg Tab.Rapdis) 4 mg TRANSLINGU Q8H PRN PRN Reason: Nausea and Vomiting Last Admin: 12/02/23 11:31 Dose: 4 mg Paliperidone (Paliperidone Er 6 Mg Tab.Er.24) 6 mg PO BEDTIME [facility] Last Admin: 12/13/23 20:19 Dose: 6 mg Senna (Sennosides 8.6 Mg Tablet) 8.6 mg PO BEDTIME [facility] Last Admin: 12/13/23 20:19 Dose: 8.6 mg Trazodone HCl (Trazodone Hcl 50 Mg Tablet) 50 mg PO BEDTIME PRN PRN Reason: Insomnia Last Admin: 12/12/23 21:18 Dose: 50 mg Allergies Allergies Allergy/AdvReac Type Severity Reaction Status Date / Time omeprazole Allergy Unknown Verified 10/30/23 00:09 Assessment & Plan Assessment & Plan (1) Schizophrenia: Status: Acute Code(s): F20.9 - Schizophrenia, unspecified Plan 63 YM with unspecified dementia, schizoaffective disorder and gerd admitted to geriatric psychiatry on 10/30/23. GI consulted due to dysphagia However pt is denying that he has any difficulty swallowing and witnessed to be taking ensure and eating burger and chips without problems. Decreased PO intake may be related to oral thrush and improving with Nystatin RECOMMENDATIONS: Continue Nystatin and Famotidine Please re-consult if pt notes recurrent problems Plan 1. Continue with antipsychotics as prescribed. 2. Continue with ECT 2nd session next Wednesday. 3. Continue with medical treatment. 12/04/2023: No changes, with the exception of discontinuing oral nystatin as patient has been declining same. 12/05/2023: No changes. Second ECT scheduled for tomorrow 12/05 ECT #2 today. no significant change just yet. may consider adding namenda for stimulation of cognitive impairments, abulia symptoms. stop ativan at bedtime at this time. 12/06 continue tx. start namenda 5 mg po daily. ECT tomorrow 12/07 more aware of surroundings ECT #3 12/08 continue tx. 12/09 continue same treatment ECT on Tuesday 12/12 ECT # 4 slightly confused after it. later more oriented. 6/11 continue tx. Reason for continued inpatient stay Substantial Risk for: inability to function Time Spent With Patient Time: Total time managing care of this patient today ____ minutes.
[2023-12-14 20:00] VITALS: BP 108/68; PULSE 78; RESP 16; TEMP 36.7; O2SAT 96
[2023-12-14] MEDS: Sennosides 8.6 MG TABLET PO (20:48)
[2023-12-14] MEDS: Mirtazapine 15 MG TABLET PO (20:48)
[2023-12-14] MEDS: traZODone HCL 50 MG TABLET PO (20:48)
[2023-12-14] MEDS: Memantine HCl 5 MG TABLET PO (20:48)
[2023-12-14] MEDS: Paliperidone ER 6 MG TAB.ER.24 PO (20:48)
[2023-12-15] VITALS (10 sets, daily range): BP systolic 95–139; BP diastolic 53–97; PULSE 82–110; RESP 12–20; TEMP 36.4–36.8; O2SAT 94–98
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
--- NOTE | 2023-12-15 07:42 | MHC.SHP ---
Pre-Procedural Eval Section A - 24 Hr Update-Section A only Date of Service: 12/15/23 Changes since office visit: Yes Changes in Medication and Yes Patient answered all questions; No Cold of Flu in the past 2 weeks and No New Medical Problems The patient has been examined within 24 hours of the surgical procedure. The History & Physical has been completed within 30 days and I have reviewed it.: Yes Section B - Complete if H&P > 30 days Chief Complaint: Schizoaffective disorder, unspecified type Allergies: Allergies Allergy/AdvReac Type Severity Reaction Status Date / Time omeprazole Allergy Unknown Verified 10/30/23 00:09 Plan I have reviewed the history and physical and performed a pertinent physical examination on my patient. No changes have occurred unless specified. Time Spent With Patient Time: Total time managing care of this patient today ____ minutes.
--- NOTE | 2023-12-15 07:44 | HO.ECTPROC ---
ECT Procedure Note Diagnosis/Treatment Date of Service: 12/15/23 Diagnosis: Catatonia and Schizoaffective Disorder Previous ECT Date: 12/10/23 Current Treatment Number: 6 Treatment: Series Interval Clinical Notes: Pt has improved mood remains flat tolerated ect tx Time: Total time managing care of this patient today ____ minutes. ECT Settings Device: THYMATRON DGx Electrode Placement: Right Unilateral Program/Pulse Width: 0.50 Energy Percent: 100 Seizure Duration By EEG (in seconds): 47 Medications Administration General Anesthetic: Etomidate (16) Muscle Relaxant: Succinylcholine (100) Ancillary Medications Analgesics: Torodol - Pre ECT Anti-emetics: Zofran - Pre ECT Airway Management Airway Management: Bag Mask Ventilation Treatment Recommendations No Changes Recommended: No change Pt Tolerated Procedure w/o Issue: Yes
[2023-12-15] MEDS: Memantine HCl 5 MG TABLET PO ×2 (09:36→20:51)
--- NOTE | 2023-12-15 12:07 | MHC.CLN ---
F/U DIET=REGULAR. ENSURE TID PROVIDES 1050 KCALS, 60 G PROTEIN. PATIENT ACCEPTS SUPPLEMENT. ENCOURAGE ADDITIONAL SNACKS AND SUPPLEMENTS FROM UNIT KITCHEN. PO INTAKE AT MEALS VARIABLE, 0-100%. MODERATE, FAVORABLE WEIGHT GAIN SINCE 11/04/23. RECEIVING ECT. CONTINUE CURRENT DIET, SUPPLEMENTS AND ENCOURAGE INTAKE ABLE. RD TO FOLLOW WEEKLY.
[2023-12-15] MEDS: Famotidine 20 MG TABLET PO (17:20)
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
[2023-12-15] MEDS: traZODone HCL 50 MG TABLET PO (20:51)
[2023-12-15] MEDS: Sennosides 8.6 MG TABLET PO (20:51)
[2023-12-15] MEDS: Paliperidone ER 6 MG TAB.ER.24 PO (20:51)
[2023-12-15] MEDS: Mirtazapine 15 MG TABLET PO (20:51)
[2023-12-16] MEDS: Famotidine 20 MG TABLET PO ×2 (05:54→16:20)
[2023-12-16 07:00] VITALS: BMI 18.7
[2023-12-16 08:00] VITALS: BP 128/74; PULSE 83; RESP 16; TEMP 36.6; O2SAT 95
[2023-12-16] MEDS: Memantine HCl 5 MG TABLET PO (08:56)
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
[2023-12-16 20:00] VITALS: BP 82/52; PULSE 72; RESP 18; TEMP 36.1; O2SAT 94
[2023-12-16] MEDS: Sennosides 8.6 MG TABLET PO (20:45)
[2023-12-16] MEDS: Paliperidone ER 6 MG TAB.ER.24 PO (20:45)
[2023-12-16] MEDS: Mirtazapine 15 MG TABLET PO (20:45)
[2023-12-17] VITALS (12 sets, daily range): BP systolic 80–143; BP diastolic 48–100; PULSE 16–88; RESP 14–18; TEMP 36.2–37.2; O2SAT 93–98
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
--- NOTE | 2023-12-17 07:51 | MHC.SHP ---
Pre-Procedural Eval Section A - 24 Hr Update-Section A only Date of Service: 12/17/23 The patient is an INPATIENT: Yes Changes since office visit: Yes Changes in Medication and Yes Patient answered all questions; No Cold of Flu in the past 2 weeks and No New Medical Problems The patient has been examined within 24 hours of the surgical procedure. The History & Physical has been completed within 30 days and I have reviewed it.: Yes Section B - Complete if H&P > 30 days Chief Complaint: Schizoaffective disorder, unspecified type Allergies: Allergies Allergy/AdvReac Type Severity Reaction Status Date / Time omeprazole Allergy Unknown Verified 10/30/23 00:09 Plan I have reviewed the history and physical and performed a pertinent physical examination on my patient. No changes have occurred unless specified. Time Spent With Patient Time: Total time managing care of this patient today ____ minutes.
--- NOTE | 2023-12-17 07:52 | HO.ECTPROC ---
ECT Procedure Note Diagnosis/Treatment Date of Service: 12/17/23 Diagnosis: Catatonia and Schizoaffective Disorder Previous ECT Date: 12/10/23 Current Treatment Number: 6 Treatment: Series Interval Clinical Notes: Pt has improved mood remains flat tolerated ect tx Time: Total time managing care of this patient today ____ minutes. ECT Settings Device: THYMATRON DGx Electrode Placement: Right Unilateral Program/Pulse Width: 0.50 Energy Percent: 100 Seizure Duration By EEG (in seconds): 47 Medications Administration General Anesthetic: Etomidate (16) Muscle Relaxant: Succinylcholine (100) Ancillary Medications Analgesics: Torodol - Pre ECT Anti-emetics: Zofran - Pre ECT Airway Management Airway Management: Bag Mask Ventilation Treatment Recommendations No Changes Recommended: No change Pt Tolerated Procedure w/o Issue: Yes
[2023-12-17] MEDS: Famotidine 20 MG TABLET PO ×2 (09:26→16:12)
--- NOTE | 2023-12-17 19:25 | PC.NURSE ---
Hypotensive, manual BP 80/48. Will encourage po fluids. Reported to Dr Polanco--awaiting reply.
[2023-12-17] MEDS: Paliperidone ER 6 MG TAB.ER.24 PO (20:41)
[2023-12-17] MEDS: Sennosides 8.6 MG TABLET PO (20:41)
[2023-12-17] MEDS: Mirtazapine 15 MG TABLET PO (20:41)
--- NOTE | 2023-12-17 21:37 | P.PNPSI_ITS ---
Subjective Subjective Date of Service: 12/17/23 Reason For Visit: Schizoaffective disorder, unspecified type Subjective Notes: Section 8 Interim History: Patient was seen and discussed in rounds today. Records and plans were reviewed. He continues has been showing some signs of improvement and has a little brighter affect. Patient somewhat blunted continue ECT response noted Mental Status Exam Mental Status Exam Narrative: In today's visit he is alert, pleasant and interactive with in his means. Soft- spoken speech. Minimal eye contact. Affect is blunted. Slow thought processes. Denies any auditory or visual hallucinations but appears internally preoccupied. No SI. Judgment is marginal Diagnostics Vital Signs (24Hr): Vital Signs - 24 hr 12/17/23 05:32 12/17/23 06:38 12/17/23 08:17 Temperature 97.6 F 97.2 F 97.3 F Pulse Rate 72 83 16 L Respiratory Rate 16 16 16 Blood Pressure 93/63 121/88 143/100 H Pulse Oximetry 96 96 97 Oxygen Delivery Method Room Air Room Air Nasal Cannula with ETCO2 Oxygen Flow Rate 2 12/17/23 08:22 12/17/23 08:27 12/17/23 08:32 Temperature Pulse Rate 86 88 85 Respiratory Rate 14 14 14 Blood Pressure 121/92 H 120/87 119/81 Pulse Oximetry 97 98 97 Oxygen Delivery Method Nasal Cannula with ETCO2 Nasal Cannula with ETCO2 Nasal Cannula with ETCO2 Oxygen Flow Rate 2 2 2 12/17/23 08:47 12/17/23 09:07 12/17/23 09:29 Temperature 98.3 F 97.9 F Pulse Rate 81 81 84 Respiratory Rate 14 16 16 Blood Pressure 121/88 122/89 120/80 Pulse Oximetry 97 98 93 Oxygen Delivery Method Room Air Room Air Room Air Oxygen Flow Rate 12/17/23 19:24 12/17/23 20:00 Temperature 99 F Pulse Rate 84 79 Respiratory Rate 18 Blood Pressure 80/48 L 89/62 L Pulse Oximetry Oxygen Delivery Method Oxygen Flow Rate BMI result Body Mass Index 18.7 Labs 11/14/23 15:20 11/16/23 09:10 Imaging Radiology Impressions: ITS Impressions Chest X-Ray 11/14/23 15:16 IMPRESSION: No evidence of acute disease. No pulmonary mass, pneumonia or pleural effusion. Medications Medications Current Medications Acetaminophen (Acetaminophen 325 Mg Tablet) 650 mg PO Q6H PRN PRN Reason: Headache/Pain Mild Scale (1-3) Last Admin: 11/09/23 21:01 Dose: 650 mg Al Hydroxide/Mg Hydroxide (Magnesium Hydrox/Alum Hydrox 30 Ml Oral.Susp) 30 ml PO Q6H PRN PRN Reason: Heartburn/Nausea Last Admin: 10/31/23 23:58 Dose: 30 ml Famotidine (Famotidine 20 Mg Tablet) 20 mg PO BID@0630,1630 [facility] Last Admin: 12/17/23 16:12 Dose: 20 mg Lactated Ringer's (Lr) 1,000 mls @ 50 mls/hr IVCONT .Q20H [facility] Last Admin: 12/17/23 09:23 Dose: Not Given Loperamide HCl (Loperamide Hcl 2 Mg Capsule) 2 mg PO Q4H PRN PRN Reason: loose stools Last Admin: 11/12/23 11:09 Dose: 2 mg Magnesium Hydroxide (Milk Of Magnesia 30 Ml Oral.Susp) 30 ml PO DAILY PRN PRN Reason: Constipation Mirtazapine (Mirtazapine 15 Mg Tablet) 15 mg PO BEDTIME [facility] Last Admin: 12/17/23 20:41 Dose: 15 mg Ondansetron HCl (Ondansetron Odt 4 Mg Tab.Rapdis) 4 mg TRANSLINGU Q8H PRN PRN Reason: Nausea and Vomiting Last Admin: 12/02/23 11:31 Dose: 4 mg Paliperidone (Paliperidone Er 6 Mg Tab.Er.24) 6 mg PO BEDTIME [facility] Last Admin: 12/17/23 20:41 Dose: 6 mg Senna (Sennosides 8.6 Mg Tablet) 8.6 mg PO BEDTIME [facility] Last Admin: 12/17/23 20:41 Dose: 8.6 mg Trazodone HCl (Trazodone Hcl 50 Mg Tablet) 50 mg PO BEDTIME PRN PRN Reason: Insomnia Last Admin: 12/15/23 20:51 Dose: 50 mg Allergies Allergies Allergy/AdvReac Type Severity Reaction Status Date / Time omeprazole Allergy Unknown Verified 10/30/23 00:09 Assessment & Plan Assessment & Plan (1) Schizophrenia: Status: Acute Code(s): F20.9 - Schizophrenia, unspecified Plan 63 YM with unspecified dementia, schizoaffective disorder and gerd admitted to geriatric psychiatry on 10/30/23. GI consulted due to dysphagia However pt is denying that he has any difficulty swallowing and witnessed to be taking ensure and eating burger and chips without problems. Decreased PO intake may be related to oral thrush and improving with Nystatin RECOMMENDATIONS: Continue Nystatin and Famotidine Please re-consult if pt notes recurrent problems Plan 1. Continue with antipsychotics as prescribed. 2. Continue with ECT 2nd session next Wednesday. 3. Continue with medical treatment. 12/04/2023: No changes, with the exception of discontinuing oral nystatin as patient has been declining same. 12/05/2023: No changes. Second ECT scheduled for tomorrow 12/05 ECT #2 today. no significant change just yet. may consider adding namenda for stimulation of cognitive impairments, abulia symptoms. stop ativan at bedtime at this time. 12/06 continue tx. start namenda 5 mg po daily. ECT tomorrow 12/07 more aware of surroundings ECT #3 12/08 continue tx. 12/09 continue same treatment ECT on Tuesday 12/12 ECT # 4 slightly confused after it. later more oriented. 12/13 continue tx. 12/14 continue tx. 12/15 eating more, more interactive. reports nightmares- may be related to namenda- will hold for now. 12/17/2023 Continue ECT encourage out of bed food fluids and increase activity ECT completed today 6. Reason for continued inpatient stay Substantial Risk for: inability to function, rapid decompensation and med/psych decompensation Time Spent With Patient Time: Total time managing care of this patient today ____ minutes.
[2023-12-18] MEDS: Famotidine 20 MG TABLET PO ×2 (06:44→16:20)
[2023-12-18 08:11] VITALS: BP 114/57; PULSE 74; RESP 18; TEMP 36.9; O2SAT 95
--- NOTE | 2023-12-18 12:11 | P.PNPSI_ITS ---
Subjective Subjective Date of Service: 12/18/23 Reason For Visit: Schizoaffective disorder, unspecified type Subjective Notes: Section 8 Interim History: Patient was seen and discussed in rounds today. Records and plans were reviewed. He continues with ECT treatment, having received 7 with no discernible changes. No complaints. Some intrusive behaviors. Trazodone for anxiety has been somewhat helpful. He is mostly medication compliant. No changes were made today Review of Systems Review of Systems Yes all other systems are reviewed and are negative Mental Status Exam Mental Status Exam Narrative: Appearance: cachectic, malnourished, in NAD Behavior: guarded, minimally engaging in conversation Psychomotor: retardation noted Speech: mostly clear, regular rate, minimally spontaneous TP: wanting to rest TC: tired, not wanting to take any medications Mood: tired Affect: constricted SI: denies HI: denies VH/AH: appears internally preoccupied Delusions: paranoid delusions Insight/judgment: impaired x 2. memory/cog: alert, not able to assess orientation as pt declines to answer questions. Diagnostics Vital Signs (24Hr): Vital Signs - 24 hr 12/17/23 19:24 12/17/23 20:00 12/17/23 22:36 Temperature 99 F 98.6 F Pulse Rate 84 79 74 Respiratory Rate 18 16 Blood Pressure 80/48 L 89/62 L 94/60 Pulse Oximetry 95 Oxygen Delivery Method Room Air 12/18/23 08:11 Temperature 98.5 F Pulse Rate 74 Respiratory Rate 18 Blood Pressure 114/57 L Pulse Oximetry 95 Oxygen Delivery Method Room Air BMI result Body Mass Index 18.7 Labs 11/14/23 15:20 11/16/23 09:10 Imaging Radiology Impressions: ITS Impressions Chest X-Ray 11/14/23 15:16 IMPRESSION: No evidence of acute disease. No pulmonary mass, pneumonia or pleural effusion. Medications Medications Current Medications Acetaminophen (Acetaminophen 325 Mg Tablet) 650 mg PO Q6H PRN PRN Reason: Headache/Pain Mild Scale (1-3) Last Admin: 11/09/23 21:01 Dose: 650 mg Al Hydroxide/Mg Hydroxide (Magnesium Hydrox/Alum Hydrox 30 Ml Oral.Susp) 30 ml PO Q6H PRN PRN Reason: Heartburn/Nausea Last Admin: 10/31/23 23:58 Dose: 30 ml Famotidine (Famotidine 20 Mg Tablet) 20 mg PO BID@0630,1630 [facility] Last Admin: 12/18/23 06:44 Dose: 20 mg Lactated Ringer's (Lr) 1,000 mls @ 50 mls/hr IVCONT .Q20H [facility] Last Admin: 12/17/23 09:23 Dose: Not Given Loperamide HCl (Loperamide Hcl 2 Mg Capsule) 2 mg PO Q4H PRN PRN Reason: loose stools Last Admin: 11/12/23 11:09 Dose: 2 mg Magnesium Hydroxide (Milk Of Magnesia 30 Ml Oral.Susp) 30 ml PO DAILY PRN PRN Reason: Constipation Mirtazapine (Mirtazapine 15 Mg Tablet) 15 mg PO BEDTIME [facility] Last Admin: 12/17/23 20:41 Dose: 15 mg Ondansetron HCl (Ondansetron Odt 4 Mg Tab.Rapdis) 4 mg TRANSLINGU Q8H PRN PRN Reason: Nausea and Vomiting Last Admin: 12/02/23 11:31 Dose: 4 mg Paliperidone (Paliperidone Er 6 Mg Tab.Er.24) 6 mg PO BEDTIME [facility] Last Admin: 12/17/23 20:41 Dose: 6 mg Senna (Sennosides 8.6 Mg Tablet) 8.6 mg PO BEDTIME [facility] Last Admin: 12/17/23 20:41 Dose: 8.6 mg Trazodone HCl (Trazodone Hcl 50 Mg Tablet) 50 mg PO BEDTIME PRN PRN Reason: Insomnia Last Admin: 12/15/23 20:51 Dose: 50 mg Allergies Allergies Allergy/AdvReac Type Severity Reaction Status Date / Time omeprazole Allergy Unknown Verified 10/30/23 00:09 Assessment & Plan Assessment & Plan (1) Schizophrenia: Status: Acute Code(s): F20.9 - Schizophrenia, unspecified Plan 63 YM with unspecified dementia, schizoaffective disorder and gerd admitted to geriatric psychiatry on 10/30/23. GI consulted due to dysphagia However pt is denying that he has any difficulty swallowing and witnessed to be taking ensure and eating burger and chips without problems. Decreased PO intake may be related to oral thrush and improving with Nystatin RECOMMENDATIONS: Continue Nystatin and Famotidine Please re-consult if pt notes recurrent problems Plan 1. Continue with antipsychotics as prescribed. 2. Continue with ECT 2nd session next Wednesday. 3. Continue with medical treatment. 12/04/2023: No changes, with the exception of discontinuing oral nystatin as patient has been declining same. 12/05/2023: No changes. Second ECT scheduled for tomorrow 12/05 ECT #2 today. no significant change just yet. may consider adding namenda for stimulation of cognitive impairments, abulia symptoms. stop ativan at bedtime at this time. 12/06 continue tx. start namenda 5 mg po daily. ECT tomorrow 12/07 more aware of surroundings ECT #3 12/08 continue tx. 12/09 continue same treatment ECT on Tuesday 12/12 ECT # 4 slightly confused after it. later more oriented. 12/13 continue tx. 12/14 continue tx. 12/15 eating more, more interactive. reports nightmares- may be related to namenda- will hold for now. 12/17: Continue current regimen and plans Reason for continued inpatient stay Substantial Risk for: inability to function and rapid decompensation Time Spent With Patient Time: Total time managing care of this patient today ____ minutes.
[2023-12-18 20:00] VITALS: BP 110/68; PULSE 70; RESP 18; TEMP 37.1; O2SAT 95
[2023-12-18] MEDS: Sennosides 8.6 MG TABLET PO (20:24)
[2023-12-18] MEDS: Paliperidone ER 6 MG TAB.ER.24 PO (20:24)
[2023-12-18] MEDS: traZODone HCL 50 MG TABLET PO (20:25)
[2023-12-18] MEDS: Mirtazapine 15 MG TABLET PO (20:25)
[2023-12-19] MEDS: Famotidine 20 MG TABLET PO ×2 (06:04→16:10)
[2023-12-19 07:58] VITALS: BP 140/82; PULSE 80; RESP 16; TEMP 36.6; O2SAT 98
--- NOTE | 2023-12-19 09:13 | P.PNPSI_ITS ---
Subjective Subjective Date of Service: 12/19/23 Reason For Visit: Schizoaffective disorder, unspecified type Subjective Notes: Section 8 Interim History: Patient was seen and discussed in rounds today. Records and plans were reviewed. He continues has been showing some signs of improvement and has a little brighter affect. He will be continuing with his ECT treatment tomorrow. Eating and sleeping adequately. No complaints or side effects. No changes were made today Review of Systems Review of Systems Yes all other systems are reviewed and are negative Mental Status Exam Mental Status Exam Narrative: In today's visit he is alert, pleasant and interactive with in his means. Soft- spoken speech. Minimal eye contact. Affect is subdued. Slow thought processes. Denies any auditory or visual hallucinations but appears internally preoccupied. No SI. Judgment is marginal Diagnostics Vital Signs (24Hr): Vital Signs - 24 hr 12/18/23 20:00 12/19/23 07:58 Temperature 98.7 F 97.9 F Pulse Rate 70 80 Respiratory Rate 18 16 Blood Pressure 110/68 140/82 H Pulse Oximetry 95 98 Oxygen Delivery Method Room Air Room Air BMI result Body Mass Index 18.7 Labs 11/14/23 15:20 11/16/23 09:10 Imaging Radiology Impressions: ITS Impressions Chest X-Ray 11/14/23 15:16 IMPRESSION: No evidence of acute disease. No pulmonary mass, pneumonia or pleural effusion. Medications Medications Current Medications Acetaminophen (Acetaminophen 325 Mg Tablet) 650 mg PO Q6H PRN PRN Reason: Headache/Pain Mild Scale (1-3) Last Admin: 11/09/23 21:01 Dose: 650 mg Al Hydroxide/Mg Hydroxide (Magnesium Hydrox/Alum Hydrox 30 Ml Oral.Susp) 30 ml PO Q6H PRN PRN Reason: Heartburn/Nausea Last Admin: 10/31/23 23:58 Dose: 30 ml Famotidine (Famotidine 20 Mg Tablet) 20 mg PO BID@0630,1630 [facility] Last Admin: 12/19/23 06:04 Dose: 20 mg Loperamide HCl (Loperamide Hcl 2 Mg Capsule) 2 mg PO Q4H PRN PRN Reason: loose stools Last Admin: 11/12/23 11:09 Dose: 2 mg Magnesium Hydroxide (Milk Of Magnesia 30 Ml Oral.Susp) 30 ml PO DAILY PRN PRN Reason: Constipation Mirtazapine (Mirtazapine 15 Mg Tablet) 15 mg PO BEDTIME [facility] Last Admin: 12/18/23 20:25 Dose: 15 mg Ondansetron HCl (Ondansetron Odt 4 Mg Tab.Rapdis) 4 mg TRANSLINGU Q8H PRN PRN Reason: Nausea and Vomiting Last Admin: 12/02/23 11:31 Dose: 4 mg Paliperidone (Paliperidone Er 6 Mg Tab.Er.24) 6 mg PO BEDTIME [facility] Last Admin: 12/18/23 20:24 Dose: 6 mg Senna (Sennosides 8.6 Mg Tablet) 8.6 mg PO BEDTIME [facility] Last Admin: 12/18/23 20:24 Dose: 8.6 mg Trazodone HCl (Trazodone Hcl 50 Mg Tablet) 50 mg PO BEDTIME PRN PRN Reason: Insomnia Last Admin: 12/18/23 20:25 Dose: 50 mg Allergies Allergies Allergy/AdvReac Type Severity Reaction Status Date / Time omeprazole Allergy Unknown Verified 10/30/23 00:09 Assessment & Plan Assessment & Plan (1) Schizophrenia: Status: Acute Code(s): F20.9 - Schizophrenia, unspecified Plan 63 YM with unspecified dementia, schizoaffective disorder and gerd admitted to geriatric psychiatry on 10/30/23. GI consulted due to dysphagia However pt is denying that he has any difficulty swallowing and witnessed to be taking ensure and eating burger and chips without problems. Decreased PO intake may be related to oral thrush and improving with Nystatin RECOMMENDATIONS: Continue Nystatin and Famotidine Please re-consult if pt notes recurrent problems Plan 1. Continue with antipsychotics as prescribed. 2. Continue with ECT 2nd session next Wednesday. 3. Continue with medical treatment. 12/04/2023: No changes, with the exception of discontinuing oral nystatin as patient has been declining same. 12/05/2023: No changes. Second ECT scheduled for tomorrow 12/05 ECT #2 today. no significant change just yet. may consider adding namenda for stimulation of cognitive impairments, abulia symptoms. stop ativan at bedtime at this time. 12/06 continue tx. start namenda 5 mg po daily. ECT tomorrow 12/07 more aware of surroundings ECT #3 12/08 continue tx. 12/09 continue same treatment ECT on Tuesday 12/12 ECT # 4 slightly confused after it. later more oriented. 12/13 continue tx. 12/14 continue tx. 12/15 eating more, more interactive. reports nightmares- may be related to namenda- will hold for now. 12/17: Continue current regimen and plans 12/18: Continue current plans and regimen. Reason for continued inpatient stay Substantial Risk for: rapid decompensation Time Spent With Patient Time: Total time managing care of this patient today ____ minutes.
[2023-12-19 20:00] VITALS: BP 98/67; PULSE 94; RESP 17; TEMP 36.6; O2SAT 96
[2023-12-19] MEDS: Sennosides 8.6 MG TABLET PO (20:46)
[2023-12-19] MEDS: Mirtazapine 15 MG TABLET PO (20:46)
[2023-12-19] MEDS: Paliperidone ER 6 MG TAB.ER.24 PO (20:46)
[2023-12-19] MEDS: traZODone HCL 50 MG TABLET PO (23:11)
[2023-12-20] VITALS (12 sets, daily range): BP systolic 100–130; BP diastolic 63–96; PULSE 73–110; RESP 12–18; TEMP 36.3–37.3; O2SAT 95–100
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
[2023-12-20] MEDS: Lactated Ringers 1,000 ML 50 ML IVCONT (06:42)
--- NOTE | 2023-12-20 06:51 | MHC.SHP ---
Pre-Procedural Eval Section A - 24 Hr Update-Section A only Date of Service: 12/20/23 The patient is an INPATIENT: Yes Changes since office visit: No Cold of Flu in the past 2 weeks, No New Medical Problems, No Changes in Medication and No Patient answered all questions The patient has been examined within 24 hours of the surgical procedure. The History & Physical has been completed within 30 days and I have reviewed it.: Yes Section B - Complete if H&P > 30 days Chief Complaint: Schizoaffective disorder, unspecified type Allergies: Allergies Allergy/AdvReac Type Severity Reaction Status Date / Time omeprazole Allergy Unknown Verified 10/30/23 00:09 Plan I have reviewed the history and physical and performed a pertinent physical examination on my patient. No changes have occurred unless specified. Time Spent With Patient Time: Total time managing care of this patient today ____ minutes.
--- NOTE | 2023-12-20 07:27 | HO.ECTPROC ---
ECT Procedure Note Diagnosis/Treatment Date of Service: 12/20/23 Diagnosis: Catatonia and Schizoaffective Disorder Previous ECT Date: 12/17/23 Current Treatment Number: 7 Treatment: Series Interval Clinical Notes: The patient reported no changes, but he is more responsive, answering questions appropriately. No side effects with previous ECT. ECT done as usual, no complications, woke up well. Time: Total time managing care of this patient today ____ minutes. ECT Settings Device: THYMATRON DGx Electrode Placement: Right Unilateral Program/Pulse Width: 0.50 Energy Percent: 100 Seizure Duration By EEG (in seconds): 0 (computer didn't record seizure but seizure activity until 34 s) By Motor Observation (in seconds): 14 Medications Administration General Anesthetic: Etomidate (16) Muscle Relaxant: Succinylcholine (100) Ancillary Medications Anti-emetics: Zofran - Pre ECT Airway Management Airway Management: Bag Mask Ventilation Treatment Recommendations No Changes Recommended: No change Pt Tolerated Procedure w/o Issue: Yes
--- NOTE | 2023-12-20 08:57 | PC.NURSE ---
Pt returned from ECT, at 08:45. BP 100/69 87 18 pt having breakfast and reports being tired.
--- NOTE | 2023-12-20 13:25 | HO.PSYCHPN ---
Subjective Subjective Date of Service: 12/20/23 Reason For Visit: Schizoaffective disorder, unspecified type Subjective Notes: Section 8 Interim History: Pt slept through the night. He had ECT this morning. He returned to the unit and had breakfast. Speech is more spontaneous and he continues to present as more aware of surroundings. He did go to bed later in the day. He denied SI/HI. Medication Compliance: Yes Mental Status Exam Mental Status Exam Narrative: Appearance: cachectic, malnourished, improved hygiene, in NAD Behavior: cooperative Psychomotor: less retardation noted Speech: mostly clear, regular rate, more spontaneous TP: mostly linear, not much detail provided TC: feeling hungry and eating Mood: good Affect: constricted SI: denies HI: denies VH/AH:none Delusions: not overt reports. Insight/judgment: impaired x 2. memory/cog: alert, oriented x 3. Diagnostics Vital Signs (24Hr): Vital Signs - 24 hr 12/19/23 20:00 12/20/23 05:43 12/20/23 05:44 Temperature 97.9 F 98.3 F 98.3 F Pulse Rate 94 87 87 Respiratory Rate 17 16 16 Blood Pressure 98/67 121/75 121/75 Pulse Oximetry 96 96 96 Oxygen Delivery Method Room Air Room Air Oxygen Flow Rate 12/20/23 06:30 12/20/23 07:30 12/20/23 07:35 Temperature 99.1 F 97.3 F Pulse Rate 90 73 89 Respiratory Rate 18 12 16 Blood Pressure 115/81 130/94 H 128/93 H Pulse Oximetry 98 100 98 Oxygen Delivery Method Room Air Nasal Cannula with ETCO2 Nasal Cannula with ETCO2 Oxygen Flow Rate 2 2 12/20/23 07:40 12/20/23 07:45 12/20/23 08:00 Temperature Pulse Rate 86 87 86 Respiratory Rate 16 14 15 Blood Pressure 129/96 H 121/90 H 117/89 Pulse Oximetry 98 98 98 Oxygen Delivery Method Nasal Cannula with ETCO2 Nasal Cannula with ETCO2 Nasal Cannula with ETCO2 Oxygen Flow Rate 2 2 2 12/20/23 08:15 12/20/23 08:30 12/20/23 08:45 Temperature 97.4 F 98.2 F Pulse Rate 88 88 87 Respiratory Rate 15 16 18 Blood Pressure 103/63 111/77 100/69 Pulse Oximetry 96 96 96 Oxygen Delivery Method Room Air Room Air Room Air Oxygen Flow Rate BMI result Body Mass Index 18.7 Labs 11/14/23 15:20 11/16/23 09:10 Imaging Radiology Impressions: ITS Impressions Chest X-Ray 11/14/23 15:16 IMPRESSION: No evidence of acute disease. No pulmonary mass, pneumonia or pleural effusion. Medications Medications Current Medications Acetaminophen (Acetaminophen 325 Mg Tablet) 650 mg PO Q6H PRN PRN Reason: Headache/Pain Mild Scale (1-3) Last Admin: 11/09/23 21:01 Dose: 650 mg Al Hydroxide/Mg Hydroxide (Magnesium Hydrox/Alum Hydrox 30 Ml Oral.Susp) 30 ml PO Q6H PRN PRN Reason: Heartburn/Nausea Last Admin: 10/31/23 23:58 Dose: 30 ml Famotidine (Famotidine 20 Mg Tablet) 20 mg PO BID@0630,1630 [facility] Last Admin: 12/20/23 05:47 Dose: Not Given Loperamide HCl (Loperamide Hcl 2 Mg Capsule) 2 mg PO Q4H PRN PRN Reason: loose stools Last Admin: 11/12/23 11:09 Dose: 2 mg Magnesium Hydroxide (Milk Of Magnesia 30 Ml Oral.Susp) 30 ml PO DAILY PRN PRN Reason: Constipation Mirtazapine (Mirtazapine 15 Mg Tablet) 15 mg PO BEDTIME [facility] Last Admin: 12/19/23 20:46 Dose: 15 mg Ondansetron HCl (Ondansetron Odt 4 Mg Tab.Rapdis) 4 mg TRANSLINGU Q8H PRN PRN Reason: Nausea and Vomiting Last Admin: 12/02/23 11:31 Dose: 4 mg Paliperidone (Paliperidone Er 6 Mg Tab.Er.24) 6 mg PO BEDTIME YESY Last Admin: 12/19/23 20:46 Dose: 6 mg Senna (Sennosides 8.6 Mg Tablet) 8.6 mg PO BEDTIME [facility] Last Admin: 12/19/23 20:46 Dose: 8.6 mg Trazodone HCl (Trazodone Hcl 50 Mg Tablet) 50 mg PO BEDTIME PRN PRN Reason: Insomnia Last Admin: 12/19/23 23:11 Dose: 50 mg Allergies Allergies Allergy/AdvReac Type Severity Reaction Status Date / Time omeprazole Allergy Unknown Verified 10/30/23 00:09 Assessment & Plan Assessment & Plan (1) Schizophrenia: Status: Acute Code(s): F20.9 - Schizophrenia, unspecified Plan 63 YM with unspecified dementia, schizoaffective disorder and gerd admitted to geriatric psychiatry on 10/30/23. GI consulted due to dysphagia However pt is denying that he has any difficulty swallowing and witnessed to be taking ensure and eating burger and chips without problems. Decreased PO intake may be related to oral thrush and improving with Nystatin RECOMMENDATIONS: Continue Nystatin and Famotidine Please re-consult if pt notes recurrent problems Plan 1. Continue with antipsychotics as prescribed. 2. Continue with ECT 2nd session next Wednesday. 3. Continue with medical treatment. 12/04/2023: No changes, with the exception of discontinuing oral nystatin as patient has been declining same. 12/05/2023: No changes. Second ECT scheduled for tomorrow 12/05 ECT #2 today. no significant change just yet. may consider adding namenda for stimulation of cognitive impairments, abulia symptoms. stop ativan at bedtime at this time. 12/06 continue tx. start namenda 5 mg po daily. ECT tomorrow 12/07 more aware of surroundings ECT #3 12/08 continue tx. 12/09 continue same treatment ECT on Tuesday 12/12 ECT # 4 slightly confused after it. later more oriented. 12/13 continue tx. 12/14 continue tx. 12/15 eating more, more interactive. reports nightmares- may be related to namenda- will hold for now. 12/17/2023 Continue ECT encourage out of bed food fluids and increase activity ECT completed today . 12/19 continue tx. He had ECT #6 Reason for continued inpatient stay Substantial Risk for: inability to function Time Spent With Patient Time: Total time managing care of this patient today ____ minutes.
[2023-12-20] MEDS: Famotidine 20 MG TABLET PO (16:20)
[2023-12-20] MEDS: traZODone HCL 50 MG TABLET PO (21:05)
[2023-12-20] MEDS: Paliperidone ER 6 MG TAB.ER.24 PO (21:05)
[2023-12-20] MEDS: Sennosides 8.6 MG TABLET PO (21:05)
[2023-12-20] MEDS: Mirtazapine 15 MG TABLET PO (21:05)
[2023-12-20] MEDS: Acetaminophen 325 MG TABLET 650 MG PO (21:13)
--- NOTE | 2023-12-21 08:38 | HO.POSTANES ---
Post Anesthesia Evaluation Post Anesthesia Evaluation Date of Service: 12/20/23 Anesthesia: General Mental Status: Awake Pain Control: Satisfactory Nausea/Vomiting: None Hydration: Adequate Anesthesia-Related Issues: No Anes. Related Issues
[2023-12-21 08:50] VITALS: BP 118/65; PULSE 98; RESP 16; TEMP 37.5; O2SAT 93
[2023-12-21] MEDS: Famotidine 20 MG TABLET PO (08:50)
--- NOTE | 2023-12-21 10:48 | HO.PSYCHPN ---
Subjective Subjective Date of Service: 12/21/23 Reason For Visit: Schizoaffective disorder, unspecified type Subjective Notes: Section 8 Interim History: Pt slept through the night. This morning mostly in bed and not as talkative. No over psychosis or delusions. He reports he feels well. He states he wants to rest. He denies any physical concerns. Review of Systems Review of Systems unremarkable Yes all other systems are reviewed and are negative Mental Status Exam Mental Status Exam Narrative: Appearance: cachectic, malnourished, improved hygiene, in NAD Behavior: cooperative Psychomotor: less retardation noted Speech: mostly clear, regular rate, more spontaneous TP: mostly linear, not much detail provided TC: feeling hungry and eating Mood: good Affect: constricted SI: denies HI: denies VH/AH:none Delusions: not overt reports. Insight/judgment: impaired x 2. memory/cog: alert, oriented x 3. Diagnostics Vital Signs (24Hr): Vital Signs - 24 hr 12/20/23 20:00 12/21/23 08:50 Temperature 97.7 F 99.5 F Pulse Rate 110 H 98 Respiratory Rate 18 16 Blood Pressure 126/67 118/65 Pulse Oximetry 95 93 Oxygen Delivery Method Room Air Room Air BMI result Body Mass Index 18.7 Labs 11/14/23 15:20 11/16/23 09:10 Imaging Radiology Impressions: ITS Impressions Chest X-Ray 11/14/23 15:16 IMPRESSION: No evidence of acute disease. No pulmonary mass, pneumonia or pleural effusion. Medications Medications Current Medications Acetaminophen (Acetaminophen 325 Mg Tablet) 650 mg PO Q6H PRN PRN Reason: Headache/Pain Mild Scale (1-3) Last Admin: 12/20/23 21:13 Dose: 650 mg Al Hydroxide/Mg Hydroxide (Magnesium Hydrox/Alum Hydrox 30 Ml Oral.Susp) 30 ml PO Q6H PRN PRN Reason: Heartburn/Nausea Last Admin: 10/31/23 23:58 Dose: 30 ml Famotidine (Famotidine 20 Mg Tablet) 20 mg PO BID@0630,1630 [facility] Last Admin: 12/21/23 08:50 Dose: 20 mg Loperamide HCl (Loperamide Hcl 2 Mg Capsule) 2 mg PO Q4H PRN PRN Reason: loose stools Last Admin: 11/12/23 11:09 Dose: 2 mg Magnesium Hydroxide (Milk Of Magnesia 30 Ml Oral.Susp) 30 ml PO DAILY PRN PRN Reason: Constipation Mirtazapine (Mirtazapine 15 Mg Tablet) 15 mg PO BEDTIME YESY Last Admin: 12/20/23 21:05 Dose: 15 mg Ondansetron HCl (Ondansetron Odt 4 Mg Tab.Rapdis) 4 mg TRANSLINGU Q8H PRN PRN Reason: Nausea and Vomiting Last Admin: 12/02/23 11:31 Dose: 4 mg Paliperidone (Paliperidone Er 6 Mg Tab.Er.24) 6 mg PO BEDTIME YESY Last Admin: 12/20/23 21:05 Dose: 6 mg Senna (Sennosides 8.6 Mg Tablet) 8.6 mg PO BEDTIME [facility] Last Admin: 12/20/23 21:05 Dose: 8.6 mg Trazodone HCl (Trazodone Hcl 50 Mg Tablet) 50 mg PO BEDTIME PRN PRN Reason: Insomnia Last Admin: 12/20/23 21:05 Dose: 50 mg Allergies Allergies Allergy/AdvReac Type Severity Reaction Status Date / Time omeprazole Allergy Unknown Verified 10/30/23 00:09 Assessment & Plan Assessment & Plan (1) Schizophrenia: Status: Acute Code(s): F20.9 - Schizophrenia, unspecified Plan 63 YM with unspecified dementia, schizoaffective disorder and gerd admitted to geriatric psychiatry on 10/30/23. GI consulted due to dysphagia However pt is denying that he has any difficulty swallowing and witnessed to be taking ensure and eating burger and chips without problems. Decreased PO intake may be related to oral thrush and improving with Nystatin RECOMMENDATIONS: Continue Nystatin and Famotidine Please re-consult if pt notes recurrent problems Plan 1. Continue with antipsychotics as prescribed. 2. Continue with ECT 2nd session next Wednesday. 3. Continue with medical treatment. 12/04/2023: No changes, with the exception of discontinuing oral nystatin as patient has been declining same. 12/05/2023: No changes. Second ECT scheduled for tomorrow 12/05 ECT #2 today. no significant change just yet. may consider adding namenda for stimulation of cognitive impairments, abulia symptoms. stop ativan at bedtime at this time. 12/06 continue tx. start namenda 5 mg po daily. ECT tomorrow 12/07 more aware of surroundings ECT #3 12/08 continue tx. 12/09 continue same treatment ECT on Tuesday 12/12 ECT # 4 slightly confused after it. later more oriented. 12/13 continue tx. 12/14 continue tx. 12/15 eating more, more interactive. reports nightmares- may be related to namenda- will hold for now. 12/17/2023 Continue ECT encourage out of bed food fluids and increase activity ECT completed today . 12/19 continue tx. He had ECT #6 12/20 continue tx. Reason for continued inpatient stay Substantial Risk for: inability to function Time Spent With Patient Time: Total time managing care of this patient today ____ minutes.
--- NOTE | 2023-12-21 13:57 | PC.NURSE ---
Pt pleasant upon approach. Lacks insight into situation, A&O x2. Pt laying in bed and needs strong encouragement to get out of bed to eat/drink. Denies SI/HI. Utilizing w/c due to fatigue. This morning upon approach while pt was in bed a sternal rub was performed as pt was not opening his eyes with verbal cueing. Upon sternal rub, pt responded verbally and opened his eyes. Pt reports not feeling well physically-currently VSS. Concerns reported to Roya Condon NP while she was in team meeting.
[2023-12-21 16:56] LABS: MANUAL DIFF FLAG NO
[2023-12-21 17:17] LABS: Alanine Aminotransferase 26 U/L (0-40); Albumin Level 3.5 g/dL (3.5-5.0); Alkaline Phosphatase 75 U/L (39-117); Anion Gap 10 (12-20); Aspartate Amino Transferase 16 U/L (5-37); Bilirubin Total 1.2 mg/dL (0.0-1.0); Blood Urea Nitrogen 35 mg/dL (9-16); Calcium 10.4 mg/dL (8.4-10.2); Carbon Dioxide 29 mmol/L (22-29); Chloride 108 mmol/L (96-108); Creatinine Clr Calc Pharmacy 46.1; Estimated Glomerular Filt Rate 57; Glucose Random 122 mg/dL (60-115); Potassium 4.2 mmol/L (3.3-5.1); Sodium 143 mmol/L (135-145); Total Protein 6.9 g/dL (6.5-8.0)
[2023-12-21 17:24] LABS: Basophils Percent Auto 0.1 % (0-2); Eosinophils Percent Auto 0.3 % (0-4); Hematocrit 39.1 % (42.0-52.0); Hemoglobin 13.7 g/dl (14.0-18.0); Imm Gran Abs Auto 0.05 X10*3/uL (0.00-0.03); Imm Gran Pct Auto 0.5 % (0.0-0.4); Lymphocytes Absolute Auto 0.9 X10*3/uL (1.2-4.9); Lymphocytes Percent Auto 8.2 % (20-40); Mean Corpuscular Hemoglobin 35.4 pg (27.0-33.0); Mean Platelet Volume 11.1 fL (9.4-12.4); Monocytes Absolute Auto 0.7 X10*3/uL (0.1-1.2); Monocytes Percent Auto 6.9 % (2-11); Neutrophils Absolute Auto 8.7 x10*3/uL (2.0-8.3); Platelet Count 194 X10*3/uL (160-400); Red Blood Count 3.87 X10*6/uL (4.60-5.80); Red Cell Distribution Width 12.4 % (11.0-16.0); White Blood Count 10.3 X10*3/uL (4.8-10.8)
[2023-12-21 20:00] VITALS: BP 100/76; PULSE 68; RESP 18; TEMP 36.2; O2SAT 95
[2023-12-21] MEDS: Paliperidone ER 6 MG TAB.ER.24 PO (20:41)
[2023-12-21] MEDS: Mirtazapine 15 MG TABLET PO (20:41)
[2023-12-21] MEDS: Sennosides 8.6 MG TABLET PO (20:41)
[2023-12-22] VITALS (12 sets, daily range): BP systolic 90–128; BP diastolic 54–88; PULSE 62–112; RESP 12–18; TEMP 36.2–36.8; O2SAT 92–100
--- NOTE | 2023-12-22 07:52 | MHC.SHP ---
Pre-Procedural Eval Section A - 24 Hr Update-Section A only Date of Service: 12/22/23 The patient is an INPATIENT: Yes Changes since office visit: Yes Changes in Medication; No Cold of Flu in the past 2 weeks, No New Medical Problems and No Patient answered all questions The patient has been examined within 24 hours of the surgical procedure. The History & Physical has been completed within 30 days and I have reviewed it.: Yes Section B - Complete if H&P > 30 days Chief Complaint: Schizoaffective disorder, unspecified type Allergies: Allergies Allergy/AdvReac Type Severity Reaction Status Date / Time omeprazole Allergy Unknown Verified 10/30/23 00:09 Plan I have reviewed the history and physical and performed a pertinent physical examination on my patient. No changes have occurred unless specified. Time Spent With Patient Time: Total time managing care of this patient today ____ minutes.
--- NOTE | 2023-12-22 07:54 | HO.ECTPROC ---
ECT Procedure Note Diagnosis/Treatment Date of Service: 12/22/23 Diagnosis: Catatonia and Schizoaffective Disorder Previous ECT Date: 12/20/23 Current Treatment Number: 8 Treatment: Series Interval Clinical Notes: The patient somewhatmore lethargic flat ECT done as usual, no complications, woke up well.discussed with team change to rtlf Time: Total time managing care of this patient today _30___ minutes. ECT Settings Device: THYMATRON DGx Electrode Placement: Right Unilateral Program/Pulse Width: 0.50 Energy Percent: 100 Seizure Duration By EEG (in seconds): 34 (computer didn't record seizure but seizure activity until 34 s) Medications Administration General Anesthetic: Etomidate (16) Muscle Relaxant: Succinylcholine (100) Ancillary Medications Anti-emetics: Zofran - Pre ECT Airway Management Airway Management: Bag Mask Ventilation Treatment Recommendations Electrode Placement: Rt temporal/ Lt frontal Notes: change to rtlf for more robust response Pt Tolerated Procedure w/o Issue: Yes
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
--- NOTE | 2023-12-22 08:57 | HO.PSYCHPN ---
Subjective Subjective Date of Service: 12/22/23 Reason For Visit: Schizoaffective disorder, unspecified type Subjective Notes: Section 8 Interim History: Pt slept through the night. Pt withdrawn, again mostly in bed, not as talkative. He reports feeling tired. He had ECT this morning. No signs of infection, afebrile, no SOB. Renal function has slightly worsen, will change paliperidone to risperidone change famotidine once a day not BID. Review of Systems Review of Systems unremarkable Yes all other systems are reviewed and are negative Mental Status Exam Mental Status Exam Narrative: Appearance: cachectic, malnourished, improved hygiene, in NAD Behavior: cooperative Psychomotor: less retardation noted Speech: mostly clear, regular rate, more spontaneous TP: mostly linear, not much detail provided TC: feeling hungry and eating Mood: good Affect: constricted SI: denies HI: denies VH/AH:none Delusions: not overt reports. Insight/judgment: impaired x 2. memory/cog: alert, oriented x 3. Diagnostics Vital Signs (24Hr): Vital Signs - 24 hr 12/21/23 20:00 12/22/23 05:59 12/22/23 06:35 Temperature 97.1 F 98.2 F 98 F Pulse Rate 68 92 98 Respiratory Rate 18 16 12 Blood Pressure 100/76 108/79 110/82 Pulse Oximetry 95 96 95 Oxygen Delivery Method Room Air Room Air Oxygen Flow Rate 12/22/23 07:53 12/22/23 07:58 12/22/23 08:03 Temperature 98.1 F Pulse Rate 62 94 98 Respiratory Rate 18 12 12 Blood Pressure 124/82 113/88 121/88 Pulse Oximetry 100 94 94 Oxygen Delivery Method Nasal Cannula with ETCO2 Nasal Cannula with ETCO2 Nasal Cannula with ETCO2 Oxygen Flow Rate 2 2 2 12/22/23 08:08 12/22/23 08:23 12/22/23 08:38 Temperature Pulse Rate 100 102 H 98 Respiratory Rate 12 12 16 Blood Pressure 121/88 103/75 99/69 Pulse Oximetry 94 92 95 Oxygen Delivery Method Nasal Cannula with ETCO2 Room Air Nasal Cannula with ETCO2 Oxygen Flow Rate 2 2 12/22/23 08:53 Temperature 97.2 F Pulse Rate 103 H Respiratory Rate 18 Blood Pressure 104/73 Pulse Oximetry 94 Oxygen Delivery Method Room Air Oxygen Flow Rate BMI result Body Mass Index 18.7 Labs 12/21/23 16:53 06/18/24 16:53 Labs: Laboratory Results - last 48 hr 12/21/23 16:53 WBC 10.3 RBC 3.87 L Hgb 13.7 L Hct 39.1 L MCV 101.0 H MCH 35.4 H MCHC 35.0 RDW 12.4 Plt Count 194 MPV 11.1 Immature Gran % (Auto) 0.5 H Neut % (Auto) 84.0 H Lymph % (Auto) 8.2 L [place] % (Auto) 6.9 Eos % (Auto) 0.3 Baso % (Auto) 0.1 Lymph # (Auto) 0.9 L [place] # (Auto) 0.7 Eos # (Auto) 0.0 Baso # (Auto) 0.0 Abs Immat Gran (auto) 0.05 H Absolute Neuts (auto) 8.7 H Absolute Nucleated RBC 0.000 Nucleated RBC % (auto) 0.0 Sodium 143 Potassium 4.2 Chloride 108 Carbon Dioxide 29 Anion Gap 10 L BUN 35 H Creatinine 1.26 Estim Creat Clear Calc 46.1 Estimated GFR 57 Random Glucose 122 H Calcium 10.4 H D Total Bilirubin 1.2 H AST 16 ALT 26 Alkaline Phosphatase 75 Total Protein 6.9 Albumin 3.5 Imaging Radiology Impressions: ITS Impressions Chest X-Ray 11/14/23 15:16 IMPRESSION: No evidence of acute disease. No pulmonary mass, pneumonia or pleural effusion. Medications Medications Current Medications Acetaminophen (Acetaminophen 325 Mg Tablet) 650 mg PO Q6H PRN PRN Reason: Headache/Pain Mild Scale (1-3) Last Admin: 12/20/23 21:13 Dose: 650 mg Al Hydroxide/Mg Hydroxide (Magnesium Hydrox/Alum Hydrox 30 Ml Oral.Susp) 30 ml PO Q6H PRN PRN Reason: Heartburn/Nausea Last Admin: 10/31/23 23:58 Dose: 30 ml Cyanocobalamin (Cyanocobalamin (Vitamin B-12) 1,000 Mcg/Ml Vial) 1,000 mcg IM Q7D [facility] Stop: 01/11/24 15:01 Last Admin: 12/21/23 18:15 Dose: Not Given Famotidine (Famotidine 20 Mg Tablet) 20 mg PO BID@0630,1630 [facility] Last Admin: 12/21/23 18:16 Dose: Not Given Loperamide HCl (Loperamide Hcl 2 Mg Capsule) 2 mg PO Q4H PRN PRN Reason: loose stools Last Admin: 11/12/23 11:09 Dose: 2 mg Magnesium Hydroxide (Milk Of Magnesia 30 Ml Oral.Susp) 30 ml PO DAILY PRN PRN Reason: Constipation Mirtazapine (Mirtazapine 15 Mg Tablet) 15 mg PO BEDTIME YESY Last Admin: 12/21/23 20:41 Dose: 15 mg Ondansetron HCl (Ondansetron Odt 4 Mg Tab.Rapdis) 4 mg TRANSLINGU Q8H PRN PRN Reason: Nausea and Vomiting Last Admin: 12/02/23 11:31 Dose: 4 mg Paliperidone (Paliperidone Er 6 Mg Tab.Er.24) 6 mg PO BEDTIME YESY Last Admin: 12/21/23 20:41 Dose: 6 mg Senna (Sennosides 8.6 Mg Tablet) 8.6 mg PO BEDTIME YESY Last Admin: 12/21/23 20:41 Dose: 8.6 mg Trazodone HCl (Trazodone Hcl 50 Mg Tablet) 50 mg PO BEDTIME PRN PRN Reason: Insomnia Last Admin: 12/20/23 21:05 Dose: 50 mg Allergies Allergies Allergy/AdvReac Type Severity Reaction Status Date / Time omeprazole Allergy Unknown Verified 10/30/23 00:09 Assessment & Plan Assessment & Plan (1) Schizophrenia: Status: Acute Code(s): F20.9 - Schizophrenia, unspecified Plan 63 YM with unspecified dementia, schizoaffective disorder and gerd admitted to geriatric psychiatry on 10/30/23. GI consulted due to dysphagia However pt is denying that he has any difficulty swallowing and witnessed to be taking ensure and eating burger and chips without problems. Decreased PO intake may be related to oral thrush and improving with Nystatin RECOMMENDATIONS: Continue Nystatin and Famotidine Please re-consult if pt notes recurrent problems Plan 1. Continue with antipsychotics as prescribed. 2. Continue with ECT 2nd session next Wednesday. 3. Continue with medical treatment. 12/04/2023: No changes, with the exception of discontinuing oral nystatin as patient has been declining same. 12/05/2023: No changes. Second ECT scheduled for tomorrow 12/05 ECT #2 today. no significant change just yet. may consider adding namenda for stimulation of cognitive impairments, abulia symptoms. stop ativan at bedtime at this time. 12/06 continue tx. start namenda 5 mg po daily. ECT tomorrow 12/07 more aware of surroundings ECT #3 12/08 continue tx. 12/09 continue same treatment ECT on Tuesday 12/12 ECT # 4 slightly confused after it. later more oriented. 12/13 continue tx. 12/14 continue tx. 12/15 eating more, more interactive. reports nightmares- may be related to namenda- will hold for now. 12/17/2023 Continue ECT encourage out of bed food fluids and increase activity ECT completed today . 12/19 continue tx. He had ECT #6 12/20 continue tx. 12/21 switch paliperidone to risperidone due to renal function. change famotidine BID to daily. Reason for continued inpatient stay Substantial Risk for: inability to function Time Spent With Patient Time: Total time managing care of this patient today ____ minutes.
[2023-12-22] MEDS: Famotidine 20 MG TABLET PO (09:40)
--- NOTE | 2023-12-22 14:26 | MHC.CLN ---
F/U DIET=REGULAR. ENSURE TID PROVIDES 1050 KCALS, 60 G PROTEIN. PATIENT ACCEPTS SUPPLEMENT. ENCOURAGE ADDITIONAL SNACKS AND SUPPLEMENTS FROM UNIT KITCHEN. PO INTAKE CONTINUES TO BE VARIABLE, BITES TO 75%. CONTINUE CURRENT DIET, SUPPLEMENTS AND ENCOURAGE INTAKE ABLE. RD TO FOLLOW WEEKLY.
[2023-12-22] MEDS: risperiDONE 1 MG TABLET PO (21:14)
[2023-12-22] MEDS: Mirtazapine 15 MG TABLET PO (21:14)
[2023-12-22] MEDS: Sennosides 8.6 MG TABLET PO (21:14)
--- NOTE | 2023-12-22 22:27 | HO.ECTPROC ---
ECT Procedure Note Diagnosis/Treatment Date of Service: 12/22/23 Diagnosis: Schizoaffective Disorder Previous ECT Date: 12/20/23 Current Treatment Number: 9 Treatment: Series Interval Clinical Notes: Patient depressed withdrawn thought blocking hesitant anergic Time: Total time managing care of this patient today ____ minutes. ECT Settings Device: THYMATRON DGx Electrode Placement: Rt temporal/ Lt frontal Program/Pulse Width: 0.50 Energy Percent: 100 Seizure Duration By EEG (in seconds): 34 (computer didn't record seizure but seizure activity until 34 s) Medications Administration General Anesthetic: Etomidate (16) Muscle Relaxant: Succinylcholine (100) Ancillary Medications Anti-emetics: Zofran - Pre ECT Airway Management Airway Management: Bag Mask Ventilation Treatment Recommendations Notes: Re-evaluate ECT treatment Pt Tolerated Procedure w/o Issue: Yes
[2023-12-23 08:00] VITALS: BP 85/56; PULSE 84; RESP 18; TEMP 36.6; O2SAT 93
[2023-12-23] MEDS: Famotidine 20 MG TABLET PO (08:54)
--- NOTE | 2023-12-23 09:58 | P.PNPSI_ITS ---
Subjective Subjective Date of Service: 12/23/23 Reason For Visit: Schizoaffective disorder, unspecified type Subjective Notes: Section 8 Interim History: Pt slept through the night. He was mostly in his room. He did have ensure and was up for some meals. He denies feeling unwell as he did prior days but reports feeling tired. He was napping on and off most of the day. Diagnostics Vital Signs (24Hr): Vital Signs - 24 hr 12/22/23 20:00 12/23/23 08:00 Temperature 97.7 F 98 F Pulse Rate 84 84 Respiratory Rate 18 18 Blood Pressure 90/54 L 85/56 L Pulse Oximetry 95 93 Oxygen Delivery Method Room Air Room Air BMI result Body Mass Index 18.7 Labs 12/21/23 16:53 12/21/23 16:53 Labs: Laboratory Results - last 48 hr 12/21/23 16:53 WBC 10.3 RBC 3.87 L Hgb 13.7 L Hct 39.1 L MCV 101.0 H MCH 35.4 H MCHC 35.0 RDW 12.4 Plt Count 194 MPV 11.1 Immature Gran % (Auto) 0.5 H Neut % (Auto) 84.0 H Lymph % (Auto) 8.2 L [place] % (Auto) 6.9 Eos % (Auto) 0.3 Baso % (Auto) 0.1 Lymph # (Auto) 0.9 L [place] # (Auto) 0.7 Eos # (Auto) 0.0 Baso # (Auto) 0.0 Abs Immat Gran (auto) 0.05 H Absolute Neuts (auto) 8.7 H Absolute Nucleated RBC 0.000 Nucleated RBC % (auto) 0.0 Sodium 143 Potassium 4.2 Chloride 108 Carbon Dioxide 29 Anion Gap 10 L BUN 35 H Creatinine 1.26 Estim Creat Clear Calc 46.1 Estimated GFR 57 Random Glucose 122 H Calcium 10.4 H D Total Bilirubin 1.2 H AST 16 ALT 26 Alkaline Phosphatase 75 Total Protein 6.9 Albumin 3.5 Imaging Radiology Impressions: ITS Impressions Chest X-Ray 11/14/23 15:16 IMPRESSION: No evidence of acute disease. No pulmonary mass, pneumonia or pleural effusion. Chest CT 12/21/23 14:32 IMPRESSION: 1. No focal infiltrate is seen. 2. A 4 mm noncalcified subpleural nodule is seen within the posterior segment of the right upper lobe. According to the UPDATED 2017 Fleischner Society recommendations, the advised follow-up imaging for solid nodules < 6 mm is: LOW RISK PATIENT: No routine follow-up. HIGH RISK PATIENT: Optional CT at 12 months. 3. There is no thoracic lymphadenopathy or pleural effusion. 4. There is a marked kyphoscoliosis. No acute or aggressive osseous lesion is seen. 5. There is mild cholelithiasis. Fleischner guidelines were followed. Medications Medications Current Medications Acetaminophen (Acetaminophen 325 Mg Tablet) 650 mg PO Q6H PRN PRN Reason: Headache/Pain Mild Scale (1-3) Last Admin: 12/20/23 21:13 Dose: 650 mg Al Hydroxide/Mg Hydroxide (Magnesium Hydrox/Alum Hydrox 30 Ml Oral.Susp) 30 ml PO Q6H PRN PRN Reason: Heartburn/Nausea Last Admin: 10/31/23 23:58 Dose: 30 ml Cyanocobalamin (Cyanocobalamin (Vitamin B-12) 1,000 Mcg/Ml Vial) 1,000 mcg IM Q7D [facility] Stop: 01/11/24 15:01 Last Admin: 12/22/23 19:14 Dose: Not Given Famotidine (Famotidine 20 Mg Tablet) 20 mg PO DAILY [facility] Last Admin: 12/23/23 08:54 Dose: 20 mg Loperamide HCl (Loperamide Hcl 2 Mg Capsule) 2 mg PO Q4H PRN PRN Reason: loose stools Last Admin: 11/12/23 11:09 Dose: 2 mg Magnesium Hydroxide (Milk Of Magnesia 30 Ml Oral.Susp) 30 ml PO DAILY PRN PRN Reason: Constipation Mirtazapine (Mirtazapine 15 Mg Tablet) 15 mg PO BEDTIME YESY Last Admin: 12/22/23 21:14 Dose: 15 mg Ondansetron HCl (Ondansetron Odt 4 Mg Tab.Rapdis) 4 mg TRANSLINGU Q8H PRN PRN Reason: Nausea and Vomiting Last Admin: 12/02/23 11:31 Dose: 4 mg Risperidone (Risperidone 1 Mg Tablet) 1 mg PO BEDTIME YESY Last Admin: 12/22/23 21:14 Dose: 1 mg Senna (Sennosides 8.6 Mg Tablet) 8.6 mg PO BEDTIME YESY Last Admin: 12/22/23 21:14 Dose: 8.6 mg Trazodone HCl (Trazodone Hcl 50 Mg Tablet) 50 mg PO BEDTIME PRN PRN Reason: Insomnia Last Admin: 12/20/23 21:05 Dose: 50 mg Allergies Allergies Allergy/AdvReac Type Severity Reaction Status Date / Time omeprazole Allergy Unknown Verified 10/30/23 00:09 Assessment & Plan Assessment & Plan (1) Schizophrenia: Status: Acute Code(s): F20.9 - Schizophrenia, unspecified Plan 63 YM with unspecified dementia, schizoaffective disorder and gerd admitted to geriatric psychiatry on 10/30/23. GI consulted due to dysphagia However pt is denying that he has any difficulty swallowing and witnessed to be taking ensure and eating burger and chips without problems. Decreased PO intake may be related to oral thrush and improving with Nystatin RECOMMENDATIONS: Continue Nystatin and Famotidine Please re-consult if pt notes recurrent problems Plan 1. Continue with antipsychotics as prescribed. 2. Continue with ECT 2nd session next Wednesday. 3. Continue with medical treatment. 12/04/2023: No changes, with the exception of discontinuing oral nystatin as patient has been declining same. 12/05/2023: No changes. Second ECT scheduled for tomorrow 12/05 ECT #2 today. no significant change just yet. may consider adding namenda for stimulation of cognitive impairments, abulia symptoms. stop ativan at bedtime at this time. 12/06 continue tx. start namenda 5 mg po daily. ECT tomorrow 12/07 more aware of surroundings ECT #3 12/08 continue tx. 12/09 continue same treatment ECT on Tuesday 12/12 ECT # 4 slightly confused after it. later more oriented. 12/13 continue tx. 12/14 continue tx. 12/15 eating more, more interactive. reports nightmares- may be related to namenda- will hold for now. 12/17/2023 Continue ECT encourage out of bed food fluids and increase activity ECT completed today 6. 12/19 continue tx. He had ECT #6 12/20 continue tx. 12/21 switch paliperidone to risperidone due to renal function. change famotidine BID to daily. 12/22- some regression, will restart namenda back but mostly in the morning as before he had nightmares. May consider stopping remeron Reason for continued inpatient stay Substantial Risk for: inability to function Time Spent With Patient Time: Total time managing care of this patient today ____ minutes.
--- NOTE | 2023-12-23 10:58 | MHC.SL.SWA ---
Speech Pathologist Impression: Risk of Aspiration Due to: Poor PO Intake Dysphasia Diet Status: Recommend continue on REGULAR SOLIDS with THIN LIQUIDS, pills whole with liquid. No further PRINTING SCREEN ASSEMBLER intervention indicated at this time. Liquid Consistency and Strategies for Safe Swallow: Liquid Intake Recommendation: Thin Liquid Intake Strategies: Unrestricted Solid Food Consistency: Dietary Recommendations: Regular Additional Modifications to Solid Foods: Encourage patient to elect softer foods from Regular Menu. Alternate liquids and solids. Oral Medication Intake: Whole with Liquid Please contact the pharmacy regarding appropriate crushable or liquid drug formulations that are available whenever modified delivery is recommended. Compensatory Strategies and Precautions to be Taken for Safe Swallow: Sitting Upright (90 deg) Liquids from Cup Liquids from Straw Alternate Liquids/Solids Supervision While Eating and Drinking for Safe Swallow: None Needed Foods to Avoid: Swallowing Recommended Treatments: n/a Recommendation for Speech: NA:Typical Evaluation Comment: Patient seen for repeat bedside swallow secondary to choking incident observed at lunch yesterday. Patient presents today similar to initial evaluation on 11/01/23, with a mildly slowed rate of mastication on regular/hard solids. Patient did not tolerate previously recommended diet of Chopped/Advanced, refusing to eat food brought, was advanced by PRINTING SCREEN ASSEMBLER to Regular on 11/02/23. Recommend Patient continue on REGULAR diet with THIN liquids, pills whole with liquid. Patient with very mild oral phase issues likely secondary to poor dentition. No further Speech/Language/Dysphagia services recommended at this time, PRINTING SCREEN ASSEMBLER will DC Speech services. , RD, RN advised of recommendations by secure text. Frequency/Duration: M-F PRN Date Range for Service Req: Timeline to reassess: Dental Scheduling Coordinator Clinican/Clinical Fellow: No Supervisory Statement: I have reviewed and agree with the student/clinical fellow's documentation: N/A Speech Language Pathologist: Pushpa Crawford M.A., [facility]-PRINTING SCREEN ASSEMBLER
[2023-12-23] MEDS: Memantine HCl 5 MG TABLET PO (11:19)
--- NOTE | 2023-12-23 11:25 | HO.POSTANES ---
Post Anesthesia Evaluation Post Anesthesia Evaluation Date of Service: 12/15/23 Vital Signs: Vital Signs Temp Pulse Resp BP Pulse Ox O2 Del Method 12/23/23 08:00 98 F 84 18 85/56 L 93 Room Air Anesthesia: General Mental Status: Awake Pain Control: Satisfactory Nausea/Vomiting: None Hydration: Adequate Anesthesia-Related Issues: No Anes. Related Issues
[2023-12-23 13:47] VITALS: BMI 17.7
[2023-12-23 20:00] VITALS: BP 97/67; PULSE 88; RESP 17; TEMP 36.9; O2SAT 92
[2023-12-23] MEDS: risperiDONE 1 MG TABLET PO (20:55)
[2023-12-23] MEDS: Sennosides 8.6 MG TABLET PO (20:55)
[2023-12-23] MEDS: Mirtazapine 15 MG TABLET PO (20:55)
[2023-12-24] VITALS (12 sets, daily range): BP systolic 96–135; BP diastolic 57–88; PULSE 85–96; RESP 15–20; TEMP 36–37.2; O2SAT 93–99
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
[2023-12-24] MEDS: Lactated Ringers 1,000 ML 50 ML IVCONT (08:35)
--- NOTE | 2023-12-24 09:45 | P.PNPSI_ITS ---
Subjective Subjective Date of Service: 12/24/23 Reason For Visit: Schizoaffective disorder, unspecified type Subjective Notes: Section 8 Interim History: Pt slept through the night. He had ECT this morning. He was out in the common area for about 2 hrs, then return to bed. He reports feeling tired, which could be related to post ECT. He does seem to have regress this week from last week when he had more episodes of being visible and more talkative. continue to monitor. Review of Systems Review of Systems unremarkable Yes all other systems are reviewed and are negative Mental Status Exam Mental Status Exam Narrative: Appearance: cachectic, malnourished, improved hygiene, in NAD Behavior: cooperative Psychomotor: less retardation noted Speech: mostly clear, regular rate, more spontaneous TP: mostly linear, not much detail provided TC: feeling hungry and eating Mood: good Affect: constricted SI: denies HI: denies VH/AH:none Delusions: not overt reports. Insight/judgment: impaired x 2. memory/cog: alert, oriented x 3. Diagnostics Vital Signs (24Hr): Vital Signs - 24 hr 12/23/23 20:00 12/24/23 05:50 12/24/23 05:51 Temperature 98.5 F 97.1 F 97.1 F Pulse Rate 88 85 85 Respiratory Rate 17 16 16 Blood Pressure 97/67 105/77 105/77 Pulse Oximetry 92 94 94 Oxygen Delivery Method Room Air Room Air 12/24/23 07:39 12/24/23 08:33 Temperature 97.7 F 98.8 F Pulse Rate 86 95 Respiratory Rate 18 20 Blood Pressure 104/69 111/79 Pulse Oximetry 94 96 Oxygen Delivery Method Room Air Room Air BMI result Body Mass Index 17.7 Labs 12/21/23 16:53 12/21/23 16:53 Imaging Radiology Impressions: ITS Impressions Chest X-Ray 11/14/23 15:16 IMPRESSION: No evidence of acute disease. No pulmonary mass, pneumonia or pleural effusion. Chest CT 12/21/23 14:32 IMPRESSION: 1. No focal infiltrate is seen. 2. A 4 mm noncalcified subpleural nodule is seen within the posterior segment of the right upper lobe. According to the UPDATED 2017 Fleischner Society recommendations, the advised follow-up imaging for solid nodules < 6 mm is: LOW RISK PATIENT: No routine follow-up. HIGH RISK PATIENT: Optional CT at 12 months. 3. There is no thoracic lymphadenopathy or pleural effusion. 4. There is a marked kyphoscoliosis. No acute or aggressive osseous lesion is seen. 5. There is mild cholelithiasis. Fleischner guidelines were followed. Medications Medications Current Medications Acetaminophen (Acetaminophen 325 Mg Tablet) 650 mg PO Q6H PRN PRN Reason: Headache/Pain Mild Scale (1-3) Last Admin: 12/20/23 21:13 Dose: 650 mg Al Hydroxide/Mg Hydroxide (Magnesium Hydrox/Alum Hydrox 30 Ml Oral.Susp) 30 ml PO Q6H PRN PRN Reason: Heartburn/Nausea Last Admin: 10/31/23 23:58 Dose: 30 ml Cyanocobalamin (Cyanocobalamin (Vitamin B-12) 1,000 Mcg/Ml Vial) 1,000 mcg IM Q7D [facility] Stop: 01/11/24 15:01 Last Admin: 12/22/23 19:14 Dose: Not Given Famotidine (Famotidine 20 Mg Tablet) 20 mg PO DAILY [facility] Last Admin: 12/23/23 08:54 Dose: 20 mg Lactated Ringer's (Lr) 1,000 mls @ 50 mls/hr IVCONT .Q20H [facility] Last Admin: 12/24/23 08:35 Dose: 50 mls/hr Loperamide HCl (Loperamide Hcl 2 Mg Capsule) 2 mg PO Q4H PRN PRN Reason: loose stools Last Admin: 11/12/23 11:09 Dose: 2 mg Magnesium Hydroxide (Milk Of Magnesia 30 Ml Oral.Susp) 30 ml PO DAILY PRN PRN Reason: Constipation Memantine (Memantine Hcl 5 Mg Tablet) 5 mg PO DAILY [facility] Last Admin: 12/23/23 11:19 Dose: 5 mg Ondansetron HCl (Ondansetron Odt 4 Mg Tab.Rapdis) 4 mg TRANSLINGU Q8H PRN PRN Reason: Nausea and Vomiting Last Admin: 12/02/23 11:31 Dose: 4 mg Risperidone (Risperidone 1 Mg Tablet) 1 mg PO BEDTIME [facility] Last Admin: 12/23/23 20:55 Dose: 1 mg Senna (Sennosides 8.6 Mg Tablet) 8.6 mg PO BEDTIME [facility] Last Admin: 12/23/23 20:55 Dose: 8.6 mg Trazodone HCl (Trazodone Hcl 50 Mg Tablet) 50 mg PO BEDTIME PRN PRN Reason: Insomnia Last Admin: 12/20/23 21:05 Dose: 50 mg Allergies Allergies Allergy/AdvReac Type Severity Reaction Status Date / Time omeprazole Allergy Unknown Verified 10/30/23 00:09 Assessment & Plan Assessment & Plan (1) Schizophrenia: Status: Acute Code(s): F20.9 - Schizophrenia, unspecified Plan 63 YM with unspecified dementia, schizoaffective disorder and gerd admitted to geriatric psychiatry on 10/30/23. GI consulted due to dysphagia However pt is denying that he has any difficulty swallowing and witnessed to be taking ensure and eating burger and chips without problems. Decreased PO intake may be related to oral thrush and improving with Nystatin RECOMMENDATIONS: Continue Nystatin and Famotidine Please re-consult if pt notes recurrent problems Plan 1. Continue with antipsychotics as prescribed. 2. Continue with ECT 2nd session next Wednesday. 3. Continue with medical treatment. 12/04/2023: No changes, with the exception of discontinuing oral nystatin as patient has been declining same. 12/05/2023: No changes. Second ECT scheduled for tomorrow 12/05 ECT #2 today. no significant change just yet. may consider adding namenda for stimulation of cognitive impairments, abulia symptoms. stop ativan at bedtime at this time. 12/06 continue tx. start namenda 5 mg po daily. ECT tomorrow 12/07 more aware of surroundings ECT #3 12/08 continue tx. 12/09 continue same treatment ECT on Tuesday 12/12 ECT # 4 slightly confused after it. later more oriented. 12/13 continue tx. 12/14 continue tx. 12/15 eating more, more interactive. reports nightmares- may be related to namenda- will hold for now. 12/17/2023 Continue ECT encourage out of bed food fluids and increase activity ECT completed today . 12/19 continue tx. He had ECT #6 12/20 continue tx. 12/21 switch paliperidone to risperidone due to renal function. change famotidine BID to daily. 12/22- some regression, will restart namenda back but mostly in the morning as before he had nightmares. May consider stopping remeron 12/23 continue current tx. Reason for continued inpatient stay Substantial Risk for: inability to function Time Spent With Patient Time: Total time managing care of this patient today ____ minutes.
--- NOTE | 2023-12-24 09:50 | MHC.SHP ---
Pre-Procedural Eval Section A - 24 Hr Update-Section A only Date of Service: 12/24/23 The patient is an INPATIENT: Yes Changes since office visit: Yes Changes in Medication and Yes Patient answered all questions; No Cold of Flu in the past 2 weeks and No New Medical Problems The patient has been examined within 24 hours of the surgical procedure. The History & Physical has been completed within 30 days and I have reviewed it.: Yes Section B - Complete if H&P > 30 days Chief Complaint: Schizoaffective disorder, unspecified type Allergies: Allergies Allergy/AdvReac Type Severity Reaction Status Date / Time omeprazole Allergy Unknown Verified 10/30/23 00:09 Plan I have reviewed the history and physical and performed a pertinent physical examination on my patient. No changes have occurred unless specified. Time Spent With Patient Time: Total time managing care of this patient today ____ minutes.
--- NOTE | 2023-12-24 12:38 | PC.NURSE ---
Darryl was picked up from the PACU by this writer editor post ECT. Darryl was alert and oriented to person and place. He denied a headache or GI distress. He was given fluids and ordered a meal. He reported feeling slightly groggy. [facility] signs stable and entered in [facility].
[2023-12-24] MEDS: Famotidine 20 MG TABLET PO (13:22)
[2023-12-24] MEDS: Memantine HCl 5 MG TABLET PO (13:22)
[2023-12-24 14:33] LABS: C Reactive Protein 0.79 mg/dL (< or = 0.50)
--- NOTE | 2023-12-24 15:12 | PC.NURSE ---
High C-reactive protein 0.79 reported to Roya Condon NP.
[2023-12-24 15:22] LABS: Erythrocyte Sedimentation Rate 30 MM/HR (0-15)
[2023-12-24] MEDS: Sennosides 8.6 MG TABLET PO (20:31)
[2023-12-24] MEDS: risperiDONE 1 MG TABLET PO (20:31)
[2023-12-25 08:00] VITALS: BP 124/58; PULSE 98; RESP 16; TEMP 36.8; O2SAT 96
[2023-12-25] MEDS: Memantine HCl 5 MG TABLET PO (08:35)
[2023-12-25] MEDS: Famotidine 20 MG TABLET PO (08:35)
--- NOTE | 2023-12-25 14:33 | P.PNPSI_ITS ---
Subjective Subjective Date of Service: 12/25/23 Reason For Visit: Schizoaffective disorder, unspecified type Subjective Notes: Section 8 Interim History: 63 yo with ? catatonia very withdrawn, poor responsiveness, hx regression between ECTs, isolates to room and bed only comes out for meals- over weekend will try ativan tid for rx catatonia if he will even take it and if it has not been tried recently- Diagnostics Vital Signs (24Hr): Vital Signs - 24 hr 12/24/23 20:00 12/25/23 08:00 Temperature 98.9 F 98.2 F Pulse Rate 92 98 Respiratory Rate 16 Blood Pressure 96/57 L 124/58 L Pulse Oximetry 93 96 Oxygen Delivery Method Room Air Room Air BMI result Body Mass Index 17.7 Labs 12/21/23 16:53 12/21/23 16:53 Labs: Laboratory Results - last 48 hr 12/24/23 14:09 ESR 30 H C-Reactive Protein 0.79 H Imaging Radiology Impressions: ITS Impressions Chest X-Ray 11/14/23 15:16 IMPRESSION: No evidence of acute disease. No pulmonary mass, pneumonia or pleural effusion. Chest CT 12/21/23 14:32 IMPRESSION: 1. No focal infiltrate is seen. 2. A 4 mm noncalcified subpleural nodule is seen within the posterior segment of the right upper lobe. According to the UPDATED 2017 Fleischner Society recommendations, the advised follow-up imaging for solid nodules < 6 mm is: LOW RISK PATIENT: No routine follow-up. HIGH RISK PATIENT: Optional CT at 12 months. 3. There is no thoracic lymphadenopathy or pleural effusion. 4. There is a marked kyphoscoliosis. No acute or aggressive osseous lesion is seen. 5. There is mild cholelithiasis. Fleischner guidelines were followed. Medications Medications Current Medications Acetaminophen (Acetaminophen 325 Mg Tablet) 650 mg PO Q6H PRN PRN Reason: Headache/Pain Mild Scale (1-3) Last Admin: 12/20/23 21:13 Dose: 650 mg Al Hydroxide/Mg Hydroxide (Magnesium Hydrox/Alum Hydrox 30 Ml Oral.Susp) 30 ml PO Q6H PRN PRN Reason: Heartburn/Nausea Last Admin: 10/31/23 23:58 Dose: 30 ml Cyanocobalamin (Cyanocobalamin (Vitamin B-12) 1,000 Mcg/Ml Vial) 1,000 mcg IM Q7D [facility] Stop: 01/11/24 15:01 Last Admin: 12/22/23 19:14 Dose: Not Given Famotidine (Famotidine 20 Mg Tablet) 20 mg PO DAILY [facility] Last Admin: 12/25/23 08:35 Dose: 20 mg Loperamide HCl (Loperamide Hcl 2 Mg Capsule) 2 mg PO Q4H PRN PRN Reason: loose stools Last Admin: 11/12/23 11:09 Dose: 2 mg Magnesium Hydroxide (Milk Of Magnesia 30 Ml Oral.Susp) 30 ml PO DAILY PRN PRN Reason: Constipation Memantine (Memantine Hcl 5 Mg Tablet) 5 mg PO DAILY [facility] Last Admin: 12/25/23 08:35 Dose: 5 mg Ondansetron HCl (Ondansetron Odt 4 Mg Tab.Rapdis) 4 mg TRANSLINGU Q8H PRN PRN Reason: Nausea and Vomiting Last Admin: 12/02/23 11:31 Dose: 4 mg Risperidone (Risperidone 1 Mg Tablet) 1 mg PO BEDTIME [facility] Last Admin: 12/24/23 20:31 Dose: 1 mg Senna (Sennosides 8.6 Mg Tablet) 8.6 mg PO BEDTIME [facility] Last Admin: 12/24/23 20:31 Dose: 8.6 mg Trazodone HCl (Trazodone Hcl 50 Mg Tablet) 50 mg PO BEDTIME PRN PRN Reason: Insomnia Last Admin: 12/20/23 21:05 Dose: 50 mg Allergies Allergies Allergy/AdvReac Type Severity Reaction Status Date / Time omeprazole Allergy Unknown Verified 10/30/23 00:09 Assessment & Plan Assessment & Plan (1) Schizophrenia: Status: Acute Code(s): F20.9 - Schizophrenia, unspecified Plan 63 YM with unspecified dementia, schizoaffective disorder and gerd admitted to geriatric psychiatry on 10/30/23. GI consulted due to dysphagia However pt is denying that he has any difficulty swallowing and witnessed to be taking ensure and eating burger and chips without problems. Decreased PO intake may be related to oral thrush and improving with Nystatin RECOMMENDATIONS: Continue Nystatin and Famotidine Please re-consult if pt notes recurrent problems Plan 1. Continue with antipsychotics as prescribed. 2. Continue with ECT 2nd session next Wednesday. 3. Continue with medical treatment. 12/04/2023: No changes, with the exception of discontinuing oral nystatin as patient has been declining same. 12/05/2023: No changes. Second ECT scheduled for tomorrow 12/05 ECT #2 today. no significant change just yet. may consider adding namenda for stimulation of cognitive impairments, abulia symptoms. stop ativan at bedtime at this time. 12/06 continue tx. start namenda 5 mg po daily. ECT tomorrow 12/07 more aware of surroundings ECT #3 12/08 continue tx. 12/09 continue same treatment ECT on Tuesday 12/12 ECT # 4 slightly confused after it. later more oriented. 12/13 continue tx. 12/14 continue tx. 12/15 eating more, more interactive. reports nightmares- may be related to namenda- will hold for now. 12/17/2023 Continue ECT encourage out of bed food fluids and increase activity ECT completed today . 12/19 continue tx. He had ECT #6 12/20 continue tx. 12/21 switch paliperidone to risperidone due to renal function. change famotidine BID to daily. 12/22- some regression, will restart namenda back but mostly in the morning as before he had nightmares. May consider stopping remeron 12/23 continue current tx. 12/25/23 trying tid lorazepam for weekend watch for worsened confusion/sedation vs inc engagement- will have to hold wednesday pm for ect wednesday, and we may not want to continue trial - was on lorazepam 0.5mg at night for sleep? in november but may have tried this tid back then too- prior to sec 8 Informed Consent: does not understand (could not engage in much discussion) Reason for continued inpatient stay Substantial Risk for: inability to function, rapid decompensation and med/psych decompensation Time Spent With Patient Time: Total time managing care of this patient today ____ minutes.
[2023-12-25] MEDS: LORazepam 0.5 MG TABLET PO ×2 (15:36→20:30)
[2023-12-25 20:00] VITALS: BP 93/62; PULSE 81; RESP 16; TEMP 36.7; O2SAT 96
[2023-12-25] MEDS: risperiDONE 1 MG TABLET PO (20:30)
[2023-12-25] MEDS: Sennosides 8.6 MG TABLET PO (20:30)
[2023-12-26 08:00] VITALS: BP 102/69; PULSE 83; RESP 16; TEMP 36.3; O2SAT 95
[2023-12-26] MEDS: LORazepam 0.5 MG TABLET PO ×2 (08:19→15:22)
[2023-12-26] MEDS: Memantine HCl 5 MG TABLET PO (08:19)
[2023-12-26] MEDS: Famotidine 20 MG TABLET PO (08:19)
--- NOTE | 2023-12-26 13:55 | HO.PSYCHPN ---
Subjective Subjective Date of Service: 12/26/23 Reason For Visit: Schizoaffective disorder, unspecified type Subjective Notes: Section 8 Interim History: Nursing reports pt more active and engaged yesterday- not with this provider yesterday am or today- will need assessment if ativan to be continued Pt didn't engage much with provider again - saw him after lunch- Medication Compliance: Yes Side effects from medications: No Attending Groups: No Review of Systems Acute medical concerns: No Medical Review of Systems: unchanged Mental Status Exam Mental Status Exam Narrative: Appearance: cachectic, malnourished, improved hygiene, in NAD Behavior: cooperative Psychomotor: less retardation noted Speech: mostly clear, regular rate, more spontaneous TP: mostly linear, not much detail provided TC: feeling hungry and eating Mood: good Affect: constricted SI: denies HI: denies VH/AH:none Delusions: not overt reports. Insight/judgment: impaired x 2. memory/cog: alert, oriented x 3. Diagnostics Vital Signs (24Hr): Vital Signs - 24 hr 12/25/23 20:00 12/26/23 08:00 Temperature 98.1 F 97.4 F Pulse Rate 81 83 Respiratory Rate 16 16 Blood Pressure 93/62 102/69 Pulse Oximetry 96 95 Oxygen Delivery Method Room Air Room Air BMI result Body Mass Index 17.7 Labs 12/21/23 16:53 12/21/23 16:53 Labs: Laboratory Results - last 48 hr 12/24/23 14:09 ESR 30 H C-Reactive Protein 0.79 H Imaging Radiology Impressions: ITS Impressions Chest X-Ray 11/14/23 15:16 IMPRESSION: No evidence of acute disease. No pulmonary mass, pneumonia or pleural effusion. Chest CT 12/21/23 14:32 IMPRESSION: 1. No focal infiltrate is seen. 2. A 4 mm noncalcified subpleural nodule is seen within the posterior segment of the right upper lobe. According to the UPDATED 2017 Fleischner Society recommendations, the advised follow-up imaging for solid nodules < 6 mm is: LOW RISK PATIENT: No routine follow-up. HIGH RISK PATIENT: Optional CT at 12 months. 3. There is no thoracic lymphadenopathy or pleural effusion. 4. There is a marked kyphoscoliosis. No acute or aggressive osseous lesion is seen. 5. There is mild cholelithiasis. Fleischner guidelines were followed. Medications Medications Current Medications Acetaminophen (Acetaminophen 325 Mg Tablet) 650 mg PO Q6H PRN PRN Reason: Headache/Pain Mild Scale (1-3) Last Admin: 12/20/23 21:13 Dose: 650 mg Al Hydroxide/Mg Hydroxide (Magnesium Hydrox/Alum Hydrox 30 Ml Oral.Susp) 30 ml PO Q6H PRN PRN Reason: Heartburn/Nausea Last Admin: 10/31/23 23:58 Dose: 30 ml Cyanocobalamin (Cyanocobalamin (Vitamin B-12) 1,000 Mcg/Ml Vial) 1,000 mcg IM Q7D [facility] Stop: 01/11/24 15:01 Last Admin: 12/22/23 19:14 Dose: Not Given Famotidine (Famotidine 20 Mg Tablet) 20 mg PO DAILY [facility] Last Admin: 12/26/23 08:19 Dose: 20 mg Loperamide HCl (Loperamide Hcl 2 Mg Capsule) 2 mg PO Q4H PRN PRN Reason: loose stools Last Admin: 11/12/23 11:09 Dose: 2 mg Lorazepam (Lorazepam 0.5 Mg Tablet) 0.5 mg PO TID [facility] Last Admin: 12/26/23 08:19 Dose: 0.5 mg Magnesium Hydroxide (Milk Of Magnesia 30 Ml Oral.Susp) 30 ml PO DAILY PRN PRN Reason: Constipation Memantine (Memantine Hcl 5 Mg Tablet) 5 mg PO DAILY [facility] Last Admin: 12/26/23 08:19 Dose: 5 mg Ondansetron HCl (Ondansetron Odt 4 Mg Tab.Rapdis) 4 mg TRANSLINGU Q8H PRN PRN Reason: Nausea and Vomiting Last Admin: 12/02/23 11:31 Dose: 4 mg Risperidone (Risperidone 1 Mg Tablet) 1 mg PO BEDTIME [facility] Last Admin: 12/25/23 20:30 Dose: 1 mg Senna (Sennosides 8.6 Mg Tablet) 8.6 mg PO BEDTIME [facility] Last Admin: 12/25/23 20:30 Dose: 8.6 mg Trazodone HCl (Trazodone Hcl 50 Mg Tablet) 50 mg PO BEDTIME PRN PRN Reason: Insomnia Last Admin: 12/20/23 21:05 Dose: 50 mg Allergies Allergies Allergy/AdvReac Type Severity Reaction Status Date / Time omeprazole Allergy Unknown Verified 10/30/23 00:09 Assessment & Plan Assessment & Plan (1) Schizophrenia: Status: Acute Code(s): F20.9 - Schizophrenia, unspecified Plan 63 YM with unspecified dementia, schizoaffective disorder and gerd admitted to geriatric psychiatry on 10/30/23. GI consulted due to dysphagia However pt is denying that he has any difficulty swallowing and witnessed to be taking ensure and eating burger and chips without problems. Decreased PO intake may be related to oral thrush and improving with Nystatin RECOMMENDATIONS: Continue Nystatin and Famotidine Please re-consult if pt notes recurrent problems Plan 1. Continue with antipsychotics as prescribed. 2. Continue with ECT 2nd session next Wednesday. 3. Continue with medical treatment. 12/04/2023: No changes, with the exception of discontinuing oral nystatin as patient has been declining same. 12/05/2023: No changes. Second ECT scheduled for tomorrow 12/05 ECT #2 today. no significant change just yet. may consider adding namenda for stimulation of cognitive impairments, abulia symptoms. stop ativan at bedtime at this time. 12/06 continue tx. start namenda 5 mg po daily. ECT tomorrow 12/07 more aware of surroundings ECT #3 12/08 continue tx. 12/09 continue same treatment ECT on Tuesday 12/12 ECT # 4 slightly confused after it. later more oriented. 12/13 continue tx. 12/14 continue tx. 12/15 eating more, more interactive. reports nightmares- may be related to namenda- will hold for now. 12/17/2023 Continue ECT encourage out of bed food fluids and increase activity ECT completed today . 12/19 continue tx. He had ECT #6 12/20 continue tx. 12/21 switch paliperidone to risperidone due to renal function. change famotidine BID to daily. 12/22- some regression, will restart namenda back but mostly in the morning as before he had nightmares. May consider stopping remeron 12/23 continue current tx. 12/25/23 trying tid lorazepam for weekend watch for worsened confusion/sedation vs inc engagement- will have to hold wednesday pm for ect wednesday, and we may not want to continue trial - was on lorazepam 0.5mg at night for sleep? in november but may have tried this tid back then too- prior to ECT 12/25- hold ativan tonight for ect tomorrow- npo after mn- and provider to reassess role of ativan tid Patient educated on: medication risk/benefits and ECT Informed Consent: further education needed Reason for continued inpatient stay Substantial Risk for: inability to function, rapid decompensation and med/psych decompensation Time Spent With Patient Time: Total time managing care of this patient today ____ minutes.
[2023-12-26 20:00] VITALS: BP 101/72; PULSE 90; RESP 16; TEMP 36.6; O2SAT 95
[2023-12-26] MEDS: risperiDONE 1 MG TABLET PO (21:17)
[2023-12-26] MEDS: traZODone HCL 50 MG TABLET PO (21:17)
[2023-12-26] MEDS: Sennosides 8.6 MG TABLET PO (21:17)
[2023-12-27 05:34] VITALS: BP 100/66; PULSE 92; RESP 16; TEMP 36.4; O2SAT 95
[2023-12-27 05:37] VITALS: BP 100/66; PULSE 92; RESP 16; TEMP 36.4; O2SAT 95
[2023-12-27 08:01] VITALS: BP 103/68; PULSE 90; RESP 18; TEMP 36.5; O2SAT 94
[2023-12-27 08:35] LABS: Syphilis Screen Nonreactive (Nonreactive)
[2023-12-27] MEDS: Memantine HCl 5 MG TABLET PO (14:41)
[2023-12-27] MEDS: Famotidine 20 MG TABLET PO (14:41)
[2023-12-27] MEDS: LORazepam 0.5 MG TABLET PO ×2 (14:41→20:19)
--- NOTE | 2023-12-27 15:41 | P.PNPSI_ITS ---
Subjective Subjective Date of Service: 12/27/23 Reason For Visit: Schizoaffective disorder, unspecified type Subjective Notes: Conditional Voluntary Interim History: The nursing staff reported the patient remains on his bed most of the time, flat affect has been out for meals. He slept well per at night. On interview the patient denies new symptoms he remains hypoactive. Mental Status Exam Mental Status Exam Patient Appearance: Unkempt Patient Orientation: Person and Situation Level of Consciousness: Awake and Appropriate Patient Behavior: Guarded and Passive Mood Description: Withdrawn Affect Description: Constricted Patient Cognition Impaired: Yes Ability to Follow Directions: Fair Speech Pattern: Clear Hallucinations: None Delusions: Not Present Thought Process: Distracted and Slowed Thinking Thought Content: positive for [place], positive for Poverty of Content and positive for Thought Blocking Judgement: Fair Diagnostics Vital Signs (24Hr): Vital Signs - 24 hr 12/26/23 20:00 12/27/23 05:34 12/27/23 05:37 Temperature 98 F 97.5 F 97.5 F Pulse Rate 90 92 92 Respiratory Rate 16 16 16 Blood Pressure 101/72 100/66 100/66 Pulse Oximetry 95 95 95 Oxygen Delivery Method Room Air Room Air 12/27/23 08:01 Temperature 97.7 F Pulse Rate 90 Respiratory Rate 18 Blood Pressure 103/68 Pulse Oximetry 94 Oxygen Delivery Method Room Air BMI result Body Mass Index 17.7 Labs 12/21/23 16:53 12/21/23 16:53 Labs: Laboratory Results - last 48 hr 12/24/23 14:09 T.pallidum Ab (EIA) Nonreactive Imaging Radiology Impressions: ITS Impressions Chest X-Ray 11/14/23 15:16 IMPRESSION: No evidence of acute disease. No pulmonary mass, pneumonia or pleural effusion. Chest CT 12/21/23 14:32 IMPRESSION: 1. No focal infiltrate is seen. 2. A 4 mm noncalcified subpleural nodule is seen within the posterior segment of the right upper lobe. According to the UPDATED 2017 Fleischner Society recommendations, the advised follow-up imaging for solid nodules < 6 mm is: LOW RISK PATIENT: No routine follow-up. HIGH RISK PATIENT: Optional CT at 12 months. 3. There is no thoracic lymphadenopathy or pleural effusion. 4. There is a marked kyphoscoliosis. No acute or aggressive osseous lesion is seen. 5. There is mild cholelithiasis. Fleischner guidelines were followed. Medications Medications Current Medications Acetaminophen (Acetaminophen 325 Mg Tablet) 650 mg PO Q6H PRN PRN Reason: Headache/Pain Mild Scale (1-3) Last Admin: 12/20/23 21:13 Dose: 650 mg Al Hydroxide/Mg Hydroxide (Magnesium Hydrox/Alum Hydrox 30 Ml Oral.Susp) 30 ml PO Q6H PRN PRN Reason: Heartburn/Nausea Last Admin: 10/31/23 23:58 Dose: 30 ml Cyanocobalamin (Cyanocobalamin (Vitamin B-12) 1,000 Mcg/Ml Vial) 1,000 mcg IM Q7D [facility] Stop: 01/11/24 15:01 Last Admin: 12/22/23 19:14 Dose: Not Given Famotidine (Famotidine 20 Mg Tablet) 20 mg PO DAILY [facility] Last Admin: 12/27/23 14:41 Dose: 20 mg Loperamide HCl (Loperamide Hcl 2 Mg Capsule) 2 mg PO Q4H PRN PRN Reason: loose stools Last Admin: 11/12/23 11:09 Dose: 2 mg Lorazepam (Lorazepam 0.5 Mg Tablet) 0.5 mg PO TID [facility] Last Admin: 12/27/23 14:41 Dose: 0.5 mg Magnesium Hydroxide (Milk Of Magnesia 30 Ml Oral.Susp) 30 ml PO DAILY PRN PRN Reason: Constipation Memantine (Memantine Hcl 5 Mg Tablet) 5 mg PO DAILY [facility] Last Admin: 12/27/23 14:41 Dose: 5 mg Ondansetron HCl (Ondansetron Odt 4 Mg Tab.Rapdis) 4 mg TRANSLINGU Q8H PRN PRN Reason: Nausea and Vomiting Last Admin: 12/02/23 11:31 Dose: 4 mg Risperidone (Risperidone 1 Mg Tablet) 1 mg PO BEDTIME [facility] Last Admin: 12/26/23 21:17 Dose: 1 mg Senna (Sennosides 8.6 Mg Tablet) 8.6 mg PO BEDTIME [facility] Last Admin: 12/26/23 21:17 Dose: 8.6 mg Trazodone HCl (Trazodone Hcl 50 Mg Tablet) 50 mg PO BEDTIME PRN PRN Reason: Insomnia Last Admin: 12/26/23 21:17 Dose: 50 mg Allergies Allergies Allergy/AdvReac Type Severity Reaction Status Date / Time omeprazole Allergy Unknown Verified 10/30/23 00:09 Assessment & Plan Assessment & Plan (1) Schizophrenia: Status: Acute Code(s): F20.9 - Schizophrenia, unspecified Plan 63 YM with unspecified dementia, schizoaffective disorder and gerd admitted to geriatric psychiatry on 10/30/23. GI consulted due to dysphagia However pt is denying that he has any difficulty swallowing and witnessed to be taking ensure and eating burger and chips without problems. Decreased PO intake may be related to oral thrush and improving with Nystatin RECOMMENDATIONS: Continue Nystatin and Famotidine Please re-consult if pt notes recurrent problems Plan 1. Continue with antipsychotics as prescribed. 2. Continue with ECT 2nd session next Wednesday. 3. Continue with medical treatment. 12/04/2023: No changes, with the exception of discontinuing oral nystatin as patient has been declining same. 12/05/2023: No changes. Second ECT scheduled for tomorrow 12/05 ECT #2 today. no significant change just yet. may consider adding namenda for stimulation of cognitive impairments, abulia symptoms. stop ativan at bedtime at this time. 12/06 continue tx. start namenda 5 mg po daily. ECT tomorrow 12/07 more aware of surroundings ECT #3 12/08 continue tx. 12/09 continue same treatment ECT on Tuesday 12/12 ECT # 4 slightly confused after it. later more oriented. 12/13 continue tx. 12/14 continue tx. 12/15 eating more, more interactive. reports nightmares- may be related to namenda- will hold for now. 12/17/2023 Continue ECT encourage out of bed food fluids and increase activity ECT completed today . 12/19 continue tx. He had ECT #6 12/20 continue tx. 12/21 switch paliperidone to risperidone due to renal function. change famotidine BID to daily. 12/22- some regression, will restart namenda back but mostly in the morning as before he had nightmares. May consider stopping remeron 12/23 continue current tx. 12/25/23 trying tid lorazepam for weekend watch for worsened confusion/sedation vs inc engagement- will have to hold wednesday pm for ect wednesday, and we may not want to continue trial - was on lorazepam 0.5mg at night for sleep? in november but may have tried this tid back then too- prior to ECT 12/25- hold ativan tonight for ect tomorrow- npo after mn- and provider to reassess role of ativan tid 12/26 today we did not have ECT the patient remains hypoactive keep same treatment. Reason for continued inpatient stay Substantial Risk for: inability to function, rapid decompensation and med/psych decompensation Time Spent With Patient Time: Total time managing care of this patient today __20__ minutes.
[2023-12-27 20:00] VITALS: BP 102/66; PULSE 108; RESP 18; TEMP 38.1; O2SAT 93
[2023-12-27] MEDS: traZODone HCL 50 MG TABLET PO (20:18)
[2023-12-27] MEDS: risperiDONE 1 MG TABLET PO (20:19)
[2023-12-27] MEDS: Sennosides 8.6 MG TABLET PO (20:19)
[2023-12-27 22:00] VITALS: BP 104/68; PULSE 106; RESP 18; TEMP 37.1; O2SAT 94
[2023-12-28 07:55] VITALS: BP 112/78; PULSE 93; RESP 16; TEMP 36.6; O2SAT 94
[2023-12-28] MEDS: Famotidine 20 MG TABLET PO (08:12)
[2023-12-28] MEDS: Memantine HCl 5 MG TABLET PO (08:12)
[2023-12-28] MEDS: LORazepam 0.5 MG TABLET PO (08:13)
[2023-12-28 15:27] LABS: Anti Nuclear Antibody Screen POSITIVE (NEGATIVE)
[2023-12-28 20:00] VITALS: BP 80/57; PULSE 76; TEMP 36.6; O2SAT 93
[2023-12-28] MEDS: risperiDONE 1 MG TABLET PO (20:32)
[2023-12-28] MEDS: Sennosides 8.6 MG TABLET PO (20:32)
[2023-12-29 08:00] VITALS: BP 98/60; PULSE 94; RESP 16; TEMP 36.4; O2SAT 93
[2023-12-29] MEDS: Memantine HCl 5 MG TABLET PO (08:27)
[2023-12-29] MEDS: Famotidine 20 MG TABLET PO (08:27)
--- NOTE | 2023-12-29 10:02 | HO.PSYCHPN ---
Subjective Subjective Date of Service: 12/28/23 Reason For Visit: Schizoaffective disorder, unspecified type Subjective Notes: Section 8 Interim History: Pt slept most of the night. He has been again mostly in bed. He reports feeling tired. He had reported that he felt he was in an alternate world, when asked to elaborate pt reports things are expanding. He does not know the month, nor place nor situation. Review of Systems Review of Systems unremarkable Yes all other systems are reviewed and are negative Mental Status Exam Mental Status Exam Narrative: Appearance: cachectic, malnourished, improved hygiene, in NAD Behavior: cooperative Psychomotor: retardation noted Speech: mostly clear, regular rate, more spontaneous TP: mostly linear, not much detail provided TC: feeling hungry and eating Mood: tired Affect: constricted SI: denies HI: denies VH/AH:none Delusions: not overt reports. Insight/judgment: impaired x 2. memory/cog: alert, oriented not oriented to month, year or month or place. Diagnostics Vital Signs (24Hr): Vital Signs - 24 hr 12/28/23 20:00 12/29/23 08:00 Temperature 97.9 F 97.6 F Pulse Rate 76 94 Respiratory Rate 16 Blood Pressure 80/57 L 98/60 Pulse Oximetry 93 93 Oxygen Delivery Method Room Air Room Air BMI result Body Mass Index 17.7 Labs 12/21/23 16:53 12/21/23 16:53 Labs: Laboratory Results - last 48 hr 12/24/23 15:08 CARLEE Screen POSITIVE A CARLEE Titer 1:320 H CARLEE Titer 2 TNP CARLEE Titer 3 TNP CARLEE Pattern A CARLEE Pattern 2 TNP CARLEE Pattern 3 TNP Imaging Radiology Impressions: ITS Impressions Chest X-Ray 11/14/23 15:16 IMPRESSION: No evidence of acute disease. No pulmonary mass, pneumonia or pleural effusion. Chest CT 12/21/23 14:32 IMPRESSION: 1. No focal infiltrate is seen. 2. A 4 mm noncalcified subpleural nodule is seen within the posterior segment of the right upper lobe. According to the UPDATED 2017 Fleischner Society recommendations, the advised follow-up imaging for solid nodules < 6 mm is: LOW RISK PATIENT: No routine follow-up. HIGH RISK PATIENT: Optional CT at 12 months. 3. There is no thoracic lymphadenopathy or pleural effusion. 4. There is a marked kyphoscoliosis. No acute or aggressive osseous lesion is seen. 5. There is mild cholelithiasis. Fleischner guidelines were followed. Medications Medications Current Medications Acetaminophen (Acetaminophen 325 Mg Tablet) 650 mg PO Q6H PRN PRN Reason: Headache/Pain Mild Scale (1-3) Last Admin: 12/20/23 21:13 Dose: 650 mg Al Hydroxide/Mg Hydroxide (Magnesium Hydrox/Alum Hydrox 30 Ml Oral.Susp) 30 ml PO Q6H PRN PRN Reason: Heartburn/Nausea Last Admin: 10/31/23 23:58 Dose: 30 ml Cyanocobalamin (Cyanocobalamin (Vitamin B-12) 1,000 Mcg/Ml Vial) 1,000 mcg IM Q7D [facility] Stop: 01/11/24 15:01 Last Admin: 12/28/23 14:49 Dose: Not Given Famotidine (Famotidine 20 Mg Tablet) 20 mg PO DAILY [facility] Last Admin: 12/29/23 08:27 Dose: 20 mg Loperamide HCl (Loperamide Hcl 2 Mg Capsule) 2 mg PO Q4H PRN PRN Reason: loose stools Last Admin: 11/12/23 11:09 Dose: 2 mg Magnesium Hydroxide (Milk Of Magnesia 30 Ml Oral.Susp) 30 ml PO DAILY PRN PRN Reason: Constipation Memantine (Memantine Hcl 5 Mg Tablet) 5 mg PO DAILY [facility] Last Admin: 12/29/23 08:27 Dose: 5 mg Ondansetron HCl (Ondansetron Odt 4 Mg Tab.Rapdis) 4 mg TRANSLINGU Q8H PRN PRN Reason: Nausea and Vomiting Last Admin: 12/02/23 11:31 Dose: 4 mg Risperidone (Risperidone 1 Mg Tablet) 1 mg PO BEDTIME [facility] Last Admin: 12/28/23 20:32 Dose: 1 mg Senna (Sennosides 8.6 Mg Tablet) 8.6 mg PO BEDTIME [facility] Last Admin: 12/28/23 20:32 Dose: 8.6 mg Trazodone HCl (Trazodone Hcl 50 Mg Tablet) 50 mg PO BEDTIME PRN PRN Reason: Insomnia Last Admin: 12/27/23 20:18 Dose: 50 mg Allergies Allergies Allergy/AdvReac Type Severity Reaction Status Date / Time omeprazole Allergy Unknown Verified 10/30/23 00:09 Assessment & Plan Assessment & Plan (1) Schizophrenia: Status: Acute Code(s): F20.9 - Schizophrenia, unspecified Plan 63 YM with unspecified dementia, schizoaffective disorder and gerd admitted to geriatric psychiatry on 10/30/23. GI consulted due to dysphagia However pt is denying that he has any difficulty swallowing and witnessed to be taking ensure and eating burger and chips without problems. Decreased PO intake may be related to oral thrush and improving with Nystatin RECOMMENDATIONS: Continue Nystatin and Famotidine Please re-consult if pt notes recurrent problems Plan 1. Continue with antipsychotics as prescribed. 2. Continue with ECT 2nd session next Wednesday. 3. Continue with medical treatment. 12/04/2023: No changes, with the exception of discontinuing oral nystatin as patient has been declining same. 12/05/2023: No changes. Second ECT scheduled for tomorrow 12/05 ECT #2 today. no significant change just yet. may consider adding namenda for stimulation of cognitive impairments, abulia symptoms. stop ativan at bedtime at this time. 12/06 continue tx. start namenda 5 mg po daily. ECT tomorrow 12/07 more aware of surroundings ECT #3 12/08 continue tx. 12/09 continue same treatment ECT on Tuesday 12/12 ECT # 4 slightly confused after it. later more oriented. 12/13 continue tx. 12/14 continue tx. 12/15 eating more, more interactive. reports nightmares- may be related to namenda- will hold for now. 12/17/2023 Continue ECT encourage out of bed food fluids and increase activity ECT completed today . 12/19 continue tx. He had ECT #6 12/20 continue tx. 12/21 switch paliperidone to risperidone due to renal function. change famotidine BID to daily. 12/22- some regression, will restart namenda back but mostly in the morning as before he had nightmares. May consider stopping remeron 12/23 continue current tx. 12/25/23 trying tid lorazepam for weekend watch for worsened confusion/sedation vs inc engagement- will have to hold wednesday pm for ect wednesday, and we may not want to continue trial - was on lorazepam 0.5mg at night for sleep? in november but may have tried this tid back then too- prior to ECT 12/25- hold ativan tonight for ect tomorrow- npo after mn- and provider to reassess role of ativan tid 12/26 today we did not have ECT the patient remains hypoactive keep same treatment. 12/27 there has not been in the past nor with recent trial of ativan much therapeutic benefit. will d/c ativan. Reason for continued inpatient stay Substantial Risk for: inability to function Time Spent With Patient Time: Total time managing care of this patient today ____ minutes.
--- NOTE | 2023-12-29 10:05 | HO.PSYCHPN ---
Subjective Subjective Date of Service: 12/29/23 Reason For Visit: Schizoaffective disorder, unspecified type Subjective Notes: Section 8 Interim History: Pt slept most of the night. He has been more visible today. He still states he does not know where he is and thinks he may be at [facility] He does not know the month, he is able to tell year is 2023. He denies SI/HI. significant poverty of thought. Review of Systems Review of Systems unremarkable Yes all other systems are reviewed and are negative Mental Status Exam Mental Status Exam Narrative: Appearance: cachectic, malnourished, improved hygiene, in NAD Behavior: cooperative Psychomotor: retardation noted Speech: mostly clear, regular rate, more spontaneous TP: mostly linear, not much detail provided TC: feeling hungry and eating Mood: tired Affect: constricted SI: denies HI: denies VH/AH:none Delusions: not overt reports. Insight/judgment: impaired x 2. memory/cog: alert, oriented not oriented to month, year or month or place. Patient Orientation: Person and Situation Level of Consciousness: Awake and Appropriate Patient Behavior: Guarded and Passive Mood Description: Withdrawn Affect Description: Constricted Patient Cognition Impaired: Yes Ability to Follow Directions: Fair Speech Pattern: Clear Diagnostics Vital Signs (24Hr): Vital Signs - 24 hr 12/28/23 20:00 12/29/23 08:00 Temperature 97.9 F 97.6 F Pulse Rate 76 94 Respiratory Rate 16 Blood Pressure 80/57 L 98/60 Pulse Oximetry 93 93 Oxygen Delivery Method Room Air Room Air BMI result Body Mass Index 17.7 Labs 12/21/23 16:53 12/21/23 16:53 Labs: Laboratory Results - last 48 hr 12/24/23 15:08 CARLEE Screen POSITIVE A CARLEE Titer 1:320 H ACRLEE Titer 2 TNP CARLEE Titer 3 TNP CARLEE Pattern A CARLEE Pattern 2 TNP CARLEE Pattern 3 TNP Imaging Radiology Impressions: ITS Impressions Chest X-Ray 11/14/23 15:16 IMPRESSION: No evidence of acute disease. No pulmonary mass, pneumonia or pleural effusion. Chest CT 12/21/23 14:32 IMPRESSION: 1. No focal infiltrate is seen. 2. A 4 mm noncalcified subpleural nodule is seen within the posterior segment of the right upper lobe. According to the UPDATED 2017 Fleischner Society recommendations, the advised follow-up imaging for solid nodules < 6 mm is: LOW RISK PATIENT: No routine follow-up. HIGH RISK PATIENT: Optional CT at 12 months. 3. There is no thoracic lymphadenopathy or pleural effusion. 4. There is a marked kyphoscoliosis. No acute or aggressive osseous lesion is seen. 5. There is mild cholelithiasis. Fleischner guidelines were followed. Medications Medications Current Medications Acetaminophen (Acetaminophen 325 Mg Tablet) 650 mg PO Q6H PRN PRN Reason: Headache/Pain Mild Scale (1-3) Last Admin: 12/20/23 21:13 Dose: 650 mg Al Hydroxide/Mg Hydroxide (Magnesium Hydrox/Alum Hydrox 30 Ml Oral.Susp) 30 ml PO Q6H PRN PRN Reason: Heartburn/Nausea Last Admin: 10/31/23 23:58 Dose: 30 ml Cyanocobalamin (Cyanocobalamin (Vitamin B-12) 1,000 Mcg/Ml Vial) 1,000 mcg IM Q7D [facility] Stop: 01/11/24 15:01 Last Admin: 12/28/23 14:49 Dose: Not Given Famotidine (Famotidine 20 Mg Tablet) 20 mg PO DAILY [facility] Last Admin: 12/29/23 08:27 Dose: 20 mg Loperamide HCl (Loperamide Hcl 2 Mg Capsule) 2 mg PO Q4H PRN PRN Reason: loose stools Last Admin: 11/12/23 11:09 Dose: 2 mg Magnesium Hydroxide (Milk Of Magnesia 30 Ml Oral.Susp) 30 ml PO DAILY PRN PRN Reason: Constipation Memantine (Memantine Hcl 5 Mg Tablet) 5 mg PO DAILY [facility] Last Admin: 12/29/23 08:27 Dose: 5 mg Ondansetron HCl (Ondansetron Odt 4 Mg Tab.Rapdis) 4 mg TRANSLINGU Q8H PRN PRN Reason: Nausea and Vomiting Last Admin: 12/02/23 11:31 Dose: 4 mg Risperidone (Risperidone 1 Mg Tablet) 1 mg PO BEDTIME YESY Last Admin: 12/28/23 20:32 Dose: 1 mg Senna (Sennosides 8.6 Mg Tablet) 8.6 mg PO BEDTIME YESY Last Admin: 12/28/23 20:32 Dose: 8.6 mg Trazodone HCl (Trazodone Hcl 50 Mg Tablet) 50 mg PO BEDTIME PRN PRN Reason: Insomnia Last Admin: 12/27/23 20:18 Dose: 50 mg Allergies Allergies Allergy/AdvReac Type Severity Reaction Status Date / Time omeprazole Allergy Unknown Verified 10/30/23 00:09 Assessment & Plan Assessment & Plan (1) Schizophrenia: Status: Acute Code(s): F20.9 - Schizophrenia, unspecified Plan 63 YM with unspecified dementia, schizoaffective disorder and gerd admitted to geriatric psychiatry on 10/30/23. GI consulted due to dysphagia However pt is denying that he has any difficulty swallowing and witnessed to be taking ensure and eating burger and chips without problems. Decreased PO intake may be related to oral thrush and improving with Nystatin RECOMMENDATIONS: Continue Nystatin and Famotidine Please re-consult if pt notes recurrent problems Plan 1. Continue with antipsychotics as prescribed. 2. Continue with ECT 2nd session next Wednesday. 3. Continue with medical treatment. 12/04/2023: No changes, with the exception of discontinuing oral nystatin as patient has been declining same. 12/05/2023: No changes. Second ECT scheduled for tomorrow 12/05 ECT #2 today. no significant change just yet. may consider adding namenda for stimulation of cognitive impairments, abulia symptoms. stop ativan at bedtime at this time. 12/06 continue tx. start namenda 5 mg po daily. ECT tomorrow 12/07 more aware of surroundings ECT #3 12/08 continue tx. 12/09 continue same treatment ECT on Tuesday 12/12 ECT # 4 slightly confused after it. later more oriented. 12/13 continue tx. 12/14 continue tx. 12/15 eating more, more interactive. reports nightmares- may be related to namenda- will hold for now. 12/17/2023 Continue ECT encourage out of bed food fluids and increase activity ECT completed today . 12/19 continue tx. He had ECT #6 12/20 continue tx. 12/21 switch paliperidone to risperidone due to renal function. change famotidine BID to daily. 12/22- some regression, will restart namenda back but mostly in the morning as before he had nightmares. May consider stopping remeron 12/23 continue current tx. 12/25/23 trying tid lorazepam for weekend watch for worsened confusion/sedation vs inc engagement- will have to hold wednesday pm for ect wednesday, and we may not want to continue trial - was on lorazepam 0.5mg at night for sleep? in november but may have tried this tid back then too- prior to ECT 12/25- hold ativan tonight for ect tomorrow- npo after mn- and provider to reassess role of ativan tid 12/26 today we did not have ECT the patient remains hypoactive keep same treatment. 12/27 there has not been in the past nor with recent trial of ativan much therapeutic benefit. will d/c ativan. 12/28 less confused without ativan. Reason for continued inpatient stay Substantial Risk for: inability to function Time Spent With Patient Time: Total time managing care of this patient today ____ minutes.
--- NOTE | 2023-12-29 11:58 | MHC.CLN ---
F/U DIET=REGULAR. ENSURE TID PROVIDES 1050 KCALS, 60 G PROTEIN. PATIENT ACCEPTS SUPPLEMENT. ENCOURAGE ADDITIONAL SNACKS AND SUPPLEMENTS FROM UNIT KITCHEN. PO INTAKE CONTINUES TO BE VARIABLE, WITH MOST MEALS AT LEAST 50%. CONTINUE CURRENT DIET, SUPPLEMENTS AND ENCOURAGE INTAKE ABLE. RD TO FOLLOW WEEKLY.
[2023-12-29] MEDS: Sennosides 8.6 MG TABLET PO (19:53)
[2023-12-29] MEDS: risperiDONE 1 MG TABLET PO (19:53)
[2023-12-29 20:00] VITALS: BP 103/58; PULSE 108; RESP 18; TEMP 36.5; O2SAT 95
[2023-12-30 07:00] VITALS: BMI 17.3
[2023-12-30 08:00] VITALS: BP 93/53; PULSE 97; RESP 17; TEMP 36.4; O2SAT 98
[2023-12-30] MEDS: Famotidine 20 MG TABLET PO (08:24)
[2023-12-30] MEDS: Memantine HCl 5 MG TABLET PO (08:24)
--- NOTE | 2023-12-30 11:33 | HO.PSYCHPN ---
Subjective Subjective Date of Service: 12/30/23 Reason For Visit: Schizoaffective disorder, unspecified type Subjective Notes: Section 8 Interim History: Pt slept most of the night. He was more alert today. He still states he does not know where he is and thinks he may be at [facility] He does not know the month, he is able to tell year is 2023. He denies SI/HI. significant poverty of thought. We completed draw test clock- he vince [place] in the middle number 26. When asked where he would place the hands to indicate time, he vince another clock, did include number from 1 to 12 with spacial deficits, some too close to each other and other outside of the [place]. He was not able to place hands- mostly followed by stimulus bound behavior- unable to redecode and perseveration- continuing to draw hands. Review of Systems Review of Systems unremarkable Yes all other systems are reviewed and are negative Mental Status Exam Mental Status Exam Narrative: Appearance: cachectic, malnourished, improved hygiene, in NAD Behavior: cooperative Psychomotor: retardation noted Speech: mostly clear, regular rate, more spontaneous TP: mostly linear, not much detail provided TC: feeling hungry and eating Mood: tired Affect: constricted SI: denies HI: denies VH/AH:none Delusions: not overt reports. Insight/judgment: impaired x 2. memory/cog: alert, oriented not oriented to month, year or month or place. Diagnostics Vital Signs (24Hr): Vital Signs - 24 hr 12/29/23 20:00 12/30/23 08:00 Temperature 97.7 F 97.5 F Pulse Rate 108 H 97 Respiratory Rate 18 17 Blood Pressure 103/58 L 93/53 L Pulse Oximetry 95 98 Oxygen Delivery Method Room Air Room Air BMI result Body Mass Index 17.7 Labs 12/21/23 16:53 12/21/23 16:53 Labs: Laboratory Results - last 48 hr 12/24/23 15:08 CARLEE Screen POSITIVE A CARLEE Titer 1:320 H CARLEE Titer 2 TNP CARLEE Titer 3 TNP CARLEE Pattern A CARLEE Pattern 2 TNP CARLEE Pattern 3 TNP Imaging Radiology Impressions: ITS Impressions Chest X-Ray 11/14/23 15:16 IMPRESSION: No evidence of acute disease. No pulmonary mass, pneumonia or pleural effusion. Chest CT 12/21/23 14:32 IMPRESSION: 1. No focal infiltrate is seen. 2. A 4 mm noncalcified subpleural nodule is seen within the posterior segment of the right upper lobe. According to the UPDATED 2017 Fleischner Society recommendations, the advised follow-up imaging for solid nodules < 6 mm is: LOW RISK PATIENT: No routine follow-up. HIGH RISK PATIENT: Optional CT at 12 months. 3. There is no thoracic lymphadenopathy or pleural effusion. 4. There is a marked kyphoscoliosis. No acute or aggressive osseous lesion is seen. 5. There is mild cholelithiasis. Fleischner guidelines were followed. Medications Medications Current Medications Acetaminophen (Acetaminophen 325 Mg Tablet) 650 mg PO Q6H PRN PRN Reason: Headache/Pain Mild Scale (1-3) Last Admin: 12/20/23 21:13 Dose: 650 mg Al Hydroxide/Mg Hydroxide (Magnesium Hydrox/Alum Hydrox 30 Ml Oral.Susp) 30 ml PO Q6H PRN PRN Reason: Heartburn/Nausea Last Admin: 10/31/23 23:58 Dose: 30 ml Cyanocobalamin (Cyanocobalamin (Vitamin B-12) 1,000 Mcg/Ml Vial) 1,000 mcg IM Q7D [facility] Stop: 01/11/24 15:01 Last Admin: 12/29/23 19:50 Dose: Not Given Famotidine (Famotidine 20 Mg Tablet) 20 mg PO DAILY [facility] Last Admin: 12/30/23 08:24 Dose: 20 mg Loperamide HCl (Loperamide Hcl 2 Mg Capsule) 2 mg PO Q4H PRN PRN Reason: loose stools Last Admin: 11/12/23 11:09 Dose: 2 mg Magnesium Hydroxide (Milk Of Magnesia 30 Ml Oral.Susp) 30 ml PO DAILY PRN PRN Reason: Constipation Memantine (Memantine Hcl 5 Mg Tablet) 5 mg PO DAILY [facility] Last Admin: 12/30/23 08:24 Dose: 5 mg Ondansetron HCl (Ondansetron Odt 4 Mg Tab.Rapdis) 4 mg TRANSLINGU Q8H PRN PRN Reason: Nausea and Vomiting Last Admin: 12/02/23 11:31 Dose: 4 mg Risperidone (Risperidone 1 Mg Tablet) 1 mg PO BEDTIME YESY Last Admin: 12/29/23 19:53 Dose: 1 mg Senna (Sennosides 8.6 Mg Tablet) 8.6 mg PO BEDTIME YESY Last Admin: 12/29/23 19:53 Dose: 8.6 mg Trazodone HCl (Trazodone Hcl 50 Mg Tablet) 50 mg PO BEDTIME PRN PRN Reason: Insomnia Last Admin: 12/27/23 20:18 Dose: 50 mg Allergies Allergies Allergy/AdvReac Type Severity Reaction Status Date / Time omeprazole Allergy Unknown Verified 10/30/23 00:09 Assessment & Plan Assessment & Plan (1) Schizophrenia: Status: Acute Code(s): F20.9 - Schizophrenia, unspecified Plan 63 YM with unspecified dementia, schizoaffective disorder and gerd admitted to geriatric psychiatry on 10/30/23. GI consulted due to dysphagia However pt is denying that he has any difficulty swallowing and witnessed to be taking ensure and eating burger and chips without problems. Decreased PO intake may be related to oral thrush and improving with Nystatin RECOMMENDATIONS: Continue Nystatin and Famotidine Please re-consult if pt notes recurrent problems Plan 1. Continue with antipsychotics as prescribed. 2. Continue with ECT 2nd session next Wednesday. 3. Continue with medical treatment. 12/04/2023: No changes, with the exception of discontinuing oral nystatin as patient has been declining same. 12/05/2023: No changes. Second ECT scheduled for tomorrow 12/05 ECT #2 today. no significant change just yet. may consider adding namenda for stimulation of cognitive impairments, abulia symptoms. stop ativan at bedtime at this time. 12/06 continue tx. start namenda 5 mg po daily. ECT tomorrow 12/07 more aware of surroundings ECT #3 12/08 continue tx. 12/09 continue same treatment ECT on Tuesday 12/12 ECT # 4 slightly confused after it. later more oriented. 12/13 continue tx. 12/14 continue tx. 12/15 eating more, more interactive. reports nightmares- may be related to namenda- will hold for now. 12/17/2023 Continue ECT encourage out of bed food fluids and increase activity ECT completed today 6. 12/19 continue tx. He had ECT #6 12/20 continue tx. 12/21 switch paliperidone to risperidone due to renal function. change famotidine BID to daily. 12/22- some regression, will restart namenda back but mostly in the morning as before he had nightmares. May consider stopping remeron 12/23 continue current tx. 12/25/23 trying tid lorazepam for weekend watch for worsened confusion/sedation vs inc engagement- will have to hold wednesday pm for ect wednesday, and we may not want to continue trial - was on lorazepam 0.5mg at night for sleep? in november but may have tried this tid back then too- prior to ECT 12/25- hold ativan tonight for ect tomorrow- npo after mn- and provider to reassess role of ativan tid 12/26 today we did not have ECT the patient remains hypoactive keep same treatment. 12/27 there has not been in the past nor with recent trial of ativan much therapeutic benefit. will d/c ativan. 12/28 less confused without ativan. 12/29 more alert, orientation to place or situation is limited, I do not think this is post ECT, is that he is talking and engaging a bit more for us to have more accurate assessment of his cognitive. Reason for continued inpatient stay Substantial Risk for: inability to function Time Spent With Patient Time: Total time managing care of this patient today ____ minutes.
--- NOTE | 2023-12-30 17:28 | PC.NURSE ---
Pt did not eat any of his meals today but did drink fluids and had 237 ml of ensure this evening.
[2023-12-30 20:00] VITALS: BP 110/74; PULSE 93; RESP 18; TEMP 36.4; O2SAT 99
[2023-12-30] MEDS: traZODone HCL 50 MG TABLET PO (20:40)
[2023-12-30] MEDS: risperiDONE 1 MG TABLET PO (20:40)
[2023-12-30] MEDS: Sennosides 8.6 MG TABLET PO (20:40)
[2023-12-31 08:00] VITALS: BP 96/63; PULSE 84; RESP 18; TEMP 36.8; O2SAT 95
[2023-12-31] MEDS: Famotidine 20 MG TABLET PO (08:39)
[2023-12-31] MEDS: Memantine HCl 5 MG TABLET PO (08:39)
--- NOTE | 2023-12-31 11:00 | P.PNPSI_ITS ---
Subjective Subjective Date of Service: 12/31/23 Reason For Visit: Schizoaffective disorder, unspecified type Subjective Notes: Section 8 Interim History: Pt had some difficulty sleeping through the night. He is much more alert and visible but still with poverty of thought. He is cooperative on approach and does not appears with overt psychosis. He is not sure as to where he is. No VH/AH. He denies any physical concerns. Review of Systems Review of Systems unremarkable Yes all other systems are reviewed and are negative Mental Status Exam Mental Status Exam Narrative: Appearance: cachectic, malnourished, improved hygiene, in NAD Behavior: cooperative Psychomotor: retardation noted Speech: mostly clear, regular rate, more spontaneous TP: mostly linear, not much detail provided TC: feeling hungry and eating Mood: tired Affect: constricted SI: denies HI: denies VH/AH:none Delusions: not overt reports. Insight/judgment: impaired x 2. memory/cog: alert, oriented not oriented to month, year or month or place. Diagnostics Vital Signs (24Hr): Vital Signs - 24 hr 12/30/23 20:00 12/31/23 08:00 Temperature 97.5 F 98.3 F Pulse Rate 93 84 Respiratory Rate 18 18 Blood Pressure 110/74 96/63 Pulse Oximetry 99 95 Oxygen Delivery Method Room Air Room Air BMI result Body Mass Index 17.3 Labs 12/21/23 16:53 12/21/23 16:53 Imaging Radiology Impressions: ITS Impressions Chest X-Ray 11/14/23 15:16 IMPRESSION: No evidence of acute disease. No pulmonary mass, pneumonia or pleural effusion. Chest CT 12/21/23 14:32 IMPRESSION: 1. No focal infiltrate is seen. 2. A 4 mm noncalcified subpleural nodule is seen within the posterior segment of the right upper lobe. According to the UPDATED 2017 Fleischner Society recommendations, the advised follow-up imaging for solid nodules < 6 mm is: LOW RISK PATIENT: No routine follow-up. HIGH RISK PATIENT: Optional CT at 12 months. 3. There is no thoracic lymphadenopathy or pleural effusion. 4. There is a marked kyphoscoliosis. No acute or aggressive osseous lesion is seen. 5. There is mild cholelithiasis. Fleischner guidelines were followed. Medications Medications Current Medications Acetaminophen (Acetaminophen 325 Mg Tablet) 650 mg PO Q6H PRN PRN Reason: Headache/Pain Mild Scale (1-3) Last Admin: 12/20/23 21:13 Dose: 650 mg Al Hydroxide/Mg Hydroxide (Magnesium Hydrox/Alum Hydrox 30 Ml Oral.Susp) 30 ml PO Q6H PRN PRN Reason: Heartburn/Nausea Last Admin: 10/31/23 23:58 Dose: 30 ml Cyanocobalamin (Cyanocobalamin (Vitamin B-12) 1,000 Mcg/Ml Vial) 1,000 mcg IM Q7D [facility] Stop: 01/11/24 15:01 Last Admin: 12/29/23 19:50 Dose: Not Given Famotidine (Famotidine 20 Mg Tablet) 20 mg PO DAILY [facility] Last Admin: 12/31/23 08:39 Dose: 20 mg Loperamide HCl (Loperamide Hcl 2 Mg Capsule) 2 mg PO Q4H PRN PRN Reason: loose stools Last Admin: 11/12/23 11:09 Dose: 2 mg Magnesium Hydroxide (Milk Of Magnesia 30 Ml Oral.Susp) 30 ml PO DAILY PRN PRN Reason: Constipation Memantine (Memantine Hcl 5 Mg Tablet) 5 mg PO DAILY [facility] Last Admin: 12/31/23 08:39 Dose: 5 mg Ondansetron HCl (Ondansetron Odt 4 Mg Tab.Rapdis) 4 mg TRANSLINGU Q8H PRN PRN Reason: Nausea and Vomiting Last Admin: 12/02/23 11:31 Dose: 4 mg Risperidone (Risperidone 1 Mg Tablet) 1 mg PO BEDTIME [facility] Last Admin: 12/30/23 20:40 Dose: 1 mg Senna (Sennosides 8.6 Mg Tablet) 8.6 mg PO BEDTIME [facility] Last Admin: 12/30/23 20:40 Dose: 8.6 mg Trazodone HCl (Trazodone Hcl 50 Mg Tablet) 50 mg PO BEDTIME PRN PRN Reason: Insomnia Last Admin: 12/30/23 20:40 Dose: 50 mg Allergies Allergies Allergy/AdvReac Type Severity Reaction Status Date / Time omeprazole Allergy Unknown Verified 10/30/23 00:09 Assessment & Plan Assessment & Plan (1) Schizophrenia: Status: Acute Code(s): F20.9 - Schizophrenia, unspecified Plan 63 YM with unspecified dementia, schizoaffective disorder and gerd admitted to geriatric psychiatry on 10/30/23. GI consulted due to dysphagia However pt is denying that he has any difficulty swallowing and witnessed to be taking ensure and eating burger and chips without problems. Decreased PO intake may be related to oral thrush and improving with Nystatin RECOMMENDATIONS: Continue Nystatin and Famotidine Please re-consult if pt notes recurrent problems Plan 1. Continue with antipsychotics as prescribed. 2. Continue with ECT 2nd session next Wednesday. 3. Continue with medical treatment. 12/04/2023: No changes, with the exception of discontinuing oral nystatin as patient has been declining same. 12/05/2023: No changes. Second ECT scheduled for tomorrow 12/05 ECT #2 today. no significant change just yet. may consider adding namenda for stimulation of cognitive impairments, abulia symptoms. stop ativan at bedtime at this time. 12/06 continue tx. start namenda 5 mg po daily. ECT tomorrow 12/07 more aware of surroundings ECT #3 12/08 continue tx. 12/09 continue same treatment ECT on Tuesday 12/12 ECT # 4 slightly confused after it. later more oriented. 12/13 continue tx. 12/14 continue tx. 12/15 eating more, more interactive. reports nightmares- may be related to namenda- will hold for now. 12/17/2023 Continue ECT encourage out of bed food fluids and increase activity ECT completed today . 12/19 continue tx. He had ECT #6 12/20 continue tx. 12/21 switch paliperidone to risperidone due to renal function. change famotidine BID to daily. 12/22- some regression, will restart namenda back but mostly in the morning as before he had nightmares. May consider stopping remeron 12/23 continue current tx. 12/25/23 trying tid lorazepam for weekend watch for worsened confusion/sedation vs inc engagement- will have to hold wednesday pm for ect wednesday, and we may not want to continue trial - was on lorazepam 0.5mg at night for sleep? in november but may have tried this tid back then too- prior to ECT 12/25- hold ativan tonight for ect tomorrow- npo after mn- and provider to reassess role of ativan tid 12/26 today we did not have ECT the patient remains hypoactive keep same treatment. 12/27 there has not been in the past nor with recent trial of ativan much therapeutic benefit. will d/c ativan. 12/28 less confused without ativan. 12/29 more alert, orientation to place or situation is limited, I do not think this is post ECT, is that he is talking and engaging a bit more for us to have more accurate assessment of his cognitive. 12/30 continue tx. Reason for continued inpatient stay Substantial Risk for: inability to function Time Spent With Patient Time: Total time managing care of this patient today ____ minutes.
[2023-12-31 20:00] VITALS: BP 95/62; PULSE 70; RESP 18; TEMP 36.3; O2SAT 98
[2023-12-31] MEDS: traZODone HCL 50 MG TABLET PO (20:20)
[2023-12-31] MEDS: risperiDONE 1 MG TABLET PO (20:20)
[2023-12-31] MEDS: Sennosides 8.6 MG TABLET PO (20:20)
[2024-01-01 08:45] VITALS: BP 90/65; PULSE 85; RESP 16; TEMP 37; O2SAT 93
[2024-01-01] MEDS: Famotidine 20 MG TABLET PO (09:16)
[2024-01-01] MEDS: Memantine HCl 5 MG TABLET PO (09:16)
--- NOTE | 2024-01-01 10:59 | P.PNPSI_ITS ---
Subjective Subjective Date of Service: 01/01/24 Reason For Visit: Schizoaffective disorder, unspecified type Subjective Notes: Conditional Voluntary Interim History: The nursing staff reported the patient had been out of his room at times, he described feeling like having a brain fog. He slept well. On interview the patient reported that he is feeling very tired, hypoactive most likely due to negative symptoms of schizophrenia. Mental Status Exam Mental Status Exam Patient Appearance: Appropriate Patient Orientation: Person and Situation Level of Consciousness: Awake Patient Behavior: Guarded and Passive Mood Description: Withdrawn Affect Description: Constricted Patient Cognition Impaired: Yes Ability to Follow Directions: Good Speech Pattern: Clear Hallucinations: None Delusions: Ideas of Reference Thought Process: Distracted and Slowed Thinking Thought Content: positive for [place] and positive for Poverty of Content Judgement: Fair Diagnostics Vital Signs (24Hr): Vital Signs - 24 hr 12/31/23 20:00 01/01/24 08:45 Temperature 97.4 F 98.6 F Pulse Rate 70 85 Respiratory Rate 18 16 Blood Pressure 95/62 90/65 Pulse Oximetry 98 93 Oxygen Delivery Method Room Air Room Air BMI result Body Mass Index 17.3 Labs 12/21/23 16:53 12/21/23 16:53 Imaging Radiology Impressions: ITS Impressions Chest X-Ray 11/14/23 15:16 IMPRESSION: No evidence of acute disease. No pulmonary mass, pneumonia or pleural effusion. Chest CT 12/21/23 14:32 IMPRESSION: 1. No focal infiltrate is seen. 2. A 4 mm noncalcified subpleural nodule is seen within the posterior segment of the right upper lobe. According to the UPDATED 2017 Fleischner Society recommendations, the advised follow-up imaging for solid nodules < 6 mm is: LOW RISK PATIENT: No routine follow-up. HIGH RISK PATIENT: Optional CT at 12 months. 3. There is no thoracic lymphadenopathy or pleural effusion. 4. There is a marked kyphoscoliosis. No acute or aggressive osseous lesion is seen. 5. There is mild cholelithiasis. Fleischner guidelines were followed. Medications Medications Current Medications Acetaminophen (Acetaminophen 325 Mg Tablet) 650 mg PO Q6H PRN PRN Reason: Headache/Pain Mild Scale (1-3) Last Admin: 12/20/23 21:13 Dose: 650 mg Al Hydroxide/Mg Hydroxide (Magnesium Hydrox/Alum Hydrox 30 Ml Oral.Susp) 30 ml PO Q6H PRN PRN Reason: Heartburn/Nausea Last Admin: 10/31/23 23:58 Dose: 30 ml Cyanocobalamin (Cyanocobalamin (Vitamin B-12) 1,000 Mcg/Ml Vial) 1,000 mcg IM Q7D [facility] [place] Stop: 01/11/24 15:01 Last Admin: 12/29/23 19:50 Dose: Not Given Famotidine (Famotidine 20 Mg Tablet) 20 mg PO DAILY [facility] Last Admin: 01/01/24 09:16 Dose: 20 mg Loperamide HCl (Loperamide Hcl 2 Mg Capsule) 2 mg PO Q4H PRN PRN Reason: loose stools Last Admin: 11/12/23 11:09 Dose: 2 mg Magnesium Hydroxide (Milk Of Magnesia 30 Ml Oral.Susp) 30 ml PO DAILY PRN PRN Reason: Constipation Memantine (Memantine Hcl 5 Mg Tablet) 5 mg PO DAILY [facility] [place] Last Admin: 01/01/24 09:16 Dose: 5 mg Ondansetron HCl (Ondansetron Odt 4 Mg Tab.Rapdis) 4 mg TRANSLINGU Q8H PRN PRN Reason: Nausea and Vomiting Last Admin: 12/02/23 11:31 Dose: 4 mg Risperidone (Risperidone 1 Mg Tablet) 1 mg PO BEDTIME [facility] [place] Last Admin: 12/31/23 20:20 Dose: 1 mg Senna (Sennosides 8.6 Mg Tablet) 8.6 mg PO BEDTIME [facility] Last Admin: 12/31/23 20:20 Dose: 8.6 mg Trazodone HCl (Trazodone Hcl 50 Mg Tablet) 50 mg PO BEDTIME PRN PRN Reason: Insomnia Last Admin: 12/31/23 20:20 Dose: 50 mg Allergies Allergies Allergy/AdvReac Type Severity Reaction Status Date / Time omeprazole Allergy Unknown Verified 10/30/23 00:09 Assessment & Plan Assessment & Plan (1) Schizophrenia: Status: Acute Code(s): F20.9 - Schizophrenia, unspecified Plan 63 YM with unspecified dementia, schizoaffective disorder and gerd admitted to geriatric psychiatry on 10/30/23. GI consulted due to dysphagia However pt is denying that he has any difficulty swallowing and witnessed to be taking ensure and eating burger and chips without problems. Decreased PO intake may be related to oral thrush and improving with Nystatin RECOMMENDATIONS: Continue Nystatin and Famotidine Please re-consult if pt notes recurrent problems Plan 1. Continue with antipsychotics as prescribed. 2. Continue with ECT 2nd session next Wednesday. 3. Continue with medical treatment. 12/04/2023: No changes, with the exception of discontinuing oral nystatin as patient has been declining same. 12/05/2023: No changes. Second ECT scheduled for tomorrow 12/05 ECT #2 today. no significant change just yet. may consider adding namenda for stimulation of cognitive impairments, abulia symptoms. stop ativan at bedtime at this time. 12/06 continue tx. start namenda 5 mg po daily. ECT tomorrow 12/07 more aware of surroundings ECT #3 12/08 continue tx. 12/09 continue same treatment ECT on Tuesday 12/12 ECT # 4 slightly confused after it. later more oriented. 12/13 continue tx. 12/14 continue tx. 12/15 eating more, more interactive. reports nightmares- may be related to namenda- will hold for now. 12/17/2023 Continue ECT encourage out of bed food fluids and increase activity ECT completed today . 12/19 continue tx. He had ECT #6 12/20 continue tx. 12/21 switch paliperidone to risperidone due to renal function. change famotidine BID to daily. 12/22- some regression, will restart namenda back but mostly in the morning as before he had nightmares. May consider stopping remeron 12/23 continue current tx. 12/25/23 trying tid lorazepam for weekend watch for worsened confusion/sedation vs inc engagement- will have to hold wednesday pm for ect wednesday, and we may not want to continue trial - was on lorazepam 0.5mg at night for sleep? in november but may have tried this tid back then too- prior to ECT 12/25- hold ativan tonight for ect tomorrow- npo after mn- and provider to reassess role of ativan tid 12/26 today we did not have ECT the patient remains hypoactive keep same treatment. 12/27 there has not been in the past nor with recent trial of ativan much therapeutic benefit. will d/c ativan. 12/28 less confused without ativan. 12/29 more alert, orientation to place or situation is limited, I do not think this is post ECT, is that he is talking and engaging a bit more for us to have more accurate assessment of his cognitive. 12/30 continue tx. 12/31 continue same treatment Reason for continued inpatient stay Substantial Risk for: inability to function, rapid decompensation and med/psych decompensation Time Spent With Patient Time: Total time managing care of this patient today __20__ minutes.
--- NOTE | 2024-01-01 11:02 | P.PNPSI_ITS ---
Subjective Subjective Reason For Visit: Schizoaffective disorder, unspecified type Diagnostics Vital Signs (24Hr): Vital Signs - 24 hr 12/31/23 20:00 01/01/24 08:45 Temperature 97.4 F 98.6 F Pulse Rate 70 85 Respiratory Rate 18 16 Blood Pressure 95/62 90/65 Pulse Oximetry 98 93 Oxygen Delivery Method Room Air Room Air BMI result Body Mass Index 17.3 Labs 12/21/23 16:53 12/21/23 16:53 Imaging Radiology Impressions: ITS Impressions Chest X-Ray 11/14/23 15:16 IMPRESSION: No evidence of acute disease. No pulmonary mass, pneumonia or pleural effusion. Chest CT 12/21/23 14:32 IMPRESSION: 1. No focal infiltrate is seen. 2. A 4 mm noncalcified subpleural nodule is seen within the posterior segment of the right upper lobe. According to the UPDATED 2017 Fleischner Society recommendations, the advised follow-up imaging for solid nodules < 6 mm is: LOW RISK PATIENT: No routine follow-up. HIGH RISK PATIENT: Optional CT at 12 months. 3. There is no thoracic lymphadenopathy or pleural effusion. 4. There is a marked kyphoscoliosis. No acute or aggressive osseous lesion is seen. 5. There is mild cholelithiasis. Fleischner guidelines were followed. Medications Medications Current Medications Acetaminophen (Acetaminophen 325 Mg Tablet) 650 mg PO Q6H PRN PRN Reason: Headache/Pain Mild Scale (1-3) Last Admin: 12/20/23 21:13 Dose: 650 mg Al Hydroxide/Mg Hydroxide (Magnesium Hydrox/Alum Hydrox 30 Ml Oral.Susp) 30 ml PO Q6H PRN PRN Reason: Heartburn/Nausea Last Admin: 10/31/23 23:58 Dose: 30 ml Cyanocobalamin (Cyanocobalamin (Vitamin B-12) 1,000 Mcg/Ml Vial) 1,000 mcg IM Q7D [facility] Stop: 01/11/24 15:01 Last Admin: 12/29/23 19:50 Dose: Not Given Famotidine (Famotidine 20 Mg Tablet) 20 mg PO DAILY [facility] Last Admin: 01/01/24 09:16 Dose: 20 mg Loperamide HCl (Loperamide Hcl 2 Mg Capsule) 2 mg PO Q4H PRN PRN Reason: loose stools Last Admin: 11/12/23 11:09 Dose: 2 mg Magnesium Hydroxide (Milk Of Magnesia 30 Ml Oral.Susp) 30 ml PO DAILY PRN PRN Reason: Constipation Memantine (Memantine Hcl 5 Mg Tablet) 5 mg PO DAILY [facility] Last Admin: 01/01/24 09:16 Dose: 5 mg Ondansetron HCl (Ondansetron Odt 4 Mg Tab.Rapdis) 4 mg TRANSLINGU Q8H PRN PRN Reason: Nausea and Vomiting Last Admin: 12/02/23 11:31 Dose: 4 mg Risperidone (Risperidone 1 Mg Tablet) 1 mg PO BEDTIME [facility] Last Admin: 12/31/23 20:20 Dose: 1 mg Senna (Sennosides 8.6 Mg Tablet) 8.6 mg PO BEDTIME [facility] Last Admin: 12/31/23 20:20 Dose: 8.6 mg Trazodone HCl (Trazodone Hcl 50 Mg Tablet) 50 mg PO BEDTIME PRN PRN Reason: Insomnia Last Admin: 12/31/23 20:20 Dose: 50 mg Allergies Allergies Allergy/AdvReac Type Severity Reaction Status Date / Time omeprazole Allergy Unknown Verified 10/30/23 00:09 Assessment & Plan Assessment & Plan (1) Schizophrenia: Status: Acute Code(s): F20.9 - Schizophrenia, unspecified Plan 63 YM with unspecified dementia, schizoaffective disorder and gerd admitted to geriatric psychiatry on 10/30/23. GI consulted due to dysphagia However pt is denying that he has any difficulty swallowing and witnessed to be taking ensure and eating burger and chips without problems. Decreased PO intake may be related to oral thrush and improving with Nystatin RECOMMENDATIONS: Continue Nystatin and Famotidine Please re-consult if pt notes recurrent problems Plan 1. Continue with antipsychotics as prescribed. 2. Continue with ECT 2nd session next Wednesday. 3. Continue with medical treatment. 12/04/2023: No changes, with the exception of discontinuing oral nystatin as patient has been declining same. 12/05/2023: No changes. Second ECT scheduled for tomorrow 12/05 ECT #2 today. no significant change just yet. may consider adding namenda for stimulation of cognitive impairments, abulia symptoms. stop ativan at bedtime at this time. 12/06 continue tx. start namenda 5 mg po daily. ECT tomorrow 12/07 more aware of surroundings ECT #3 12/08 continue tx. 12/09 continue same treatment ECT on Tuesday 12/12 ECT # 4 slightly confused after it. later more oriented. 12/13 continue tx. 12/14 continue tx. 12/15 eating more, more interactive. reports nightmares- may be related to namenda- will hold for now. 12/17/2023 Continue ECT encourage out of bed food fluids and increase activity ECT completed today . 12/19 continue tx. He had ECT #6 12/20 continue tx. 12/21 switch paliperidone to risperidone due to renal function. change famotidine BID to daily. 12/22- some regression, will restart namenda back but mostly in the morning as before he had nightmares. May consider stopping remeron 12/23 continue current tx. 12/25/23 trying tid lorazepam for weekend watch for worsened confusion/sedation vs inc engagement- will have to hold wednesday pm for ect wednesday, and we may not want to continue trial - was on lorazepam 0.5mg at night for sleep? in november but may have tried this tid back then too- prior to ECT 12/25- hold ativan tonight for ect tomorrow- npo after mn- and provider to reassess role of ativan tid 12/26 today we did not have ECT the patient remains hypoactive keep same treatment. 12/27 there has not been in the past nor with recent trial of ativan much therapeutic benefit. will d/c ativan. 12/28 less confused without ativan. 12/29 more alert, orientation to place or situation is limited, I do not think this is post ECT, is that he is talking and engaging a bit more for us to have more accurate assessment of his cognitive. 12/30 continue tx. 12/31 continue same treatment Time Spent With Patient Time: Total time managing care of this patient today ____ minutes.
[2024-01-01 20:00] VITALS: BP 96/62; PULSE 82; RESP 18; TEMP 36.7; O2SAT 96
[2024-01-01] MEDS: Sennosides 8.6 MG TABLET PO (20:22)
[2024-01-01] MEDS: risperiDONE 1 MG TABLET PO (20:22)
[2024-01-01] MEDS: traZODone HCL 50 MG TABLET PO (20:22)
[2024-01-02 09:35] VITALS: BP 96/55; PULSE 95; RESP 18; TEMP 36.9
--- NOTE | 2024-01-02 09:53 | HO.PSYCHPN ---
Subjective Subjective Date of Service: 01/02/24 Reason For Visit: Schizoaffective disorder, unspecified type Subjective Notes: Conditional Voluntary Interim History: The nursing staff reported the patient had been seen more in the unit he was seen watching TV yesterday. He was compliant with medications and he slept at night he went out for a snack. On interview the patient denies new symptoms still hypoactive but a little more responsive. Mental Status Exam Mental Status Exam Patient Appearance: Appropriate and Unkempt Patient Orientation: Person and Situation Level of Consciousness: Awake Patient Behavior: Guarded and Passive Mood Description: Withdrawn Affect Description: Blunted Patient Cognition Impaired: Yes Ability to Follow Directions: Good Speech Pattern: Clear Hallucinations: None Delusions: Paranoid Ideation and Ideas of Reference Thought Process: Distracted and Slowed Thinking Thought Content: positive for Poverty of Content and positive for Thought Blocking Judgement: Fair Diagnostics Vital Signs (24Hr): Vital Signs - 24 hr 01/01/24 20:00 Temperature 98.1 F Pulse Rate 82 Respiratory Rate 18 Blood Pressure 96/62 Pulse Oximetry 96 Oxygen Delivery Method Room Air BMI result Body Mass Index 17.3 Labs 12/21/23 16:53 12/21/23 16:53 Imaging Radiology Impressions: ITS Impressions Chest X-Ray 11/14/23 15:16 IMPRESSION: No evidence of acute disease. No pulmonary mass, pneumonia or pleural effusion. Chest CT 12/21/23 14:32 IMPRESSION: 1. No focal infiltrate is seen. 2. A 4 mm noncalcified subpleural nodule is seen within the posterior segment of the right upper lobe. According to the UPDATED 2017 Fleischner Society recommendations, the advised follow-up imaging for solid nodules < 6 mm is: LOW RISK PATIENT: No routine follow-up. HIGH RISK PATIENT: Optional CT at 12 months. 3. There is no thoracic lymphadenopathy or pleural effusion. 4. There is a marked kyphoscoliosis. No acute or aggressive osseous lesion is seen. 5. There is mild cholelithiasis. Fleischner guidelines were followed. Medications Medications Current Medications Acetaminophen (Acetaminophen 325 Mg Tablet) 650 mg PO Q6H PRN PRN Reason: Headache/Pain Mild Scale (1-3) Last Admin: 12/20/23 21:13 Dose: 650 mg Al Hydroxide/Mg Hydroxide (Magnesium Hydrox/Alum Hydrox 30 Ml Oral.Susp) 30 ml PO Q6H PRN PRN Reason: Heartburn/Nausea Last Admin: 10/31/23 23:58 Dose: 30 ml Cyanocobalamin (Cyanocobalamin (Vitamin B-12) 1,000 Mcg/Ml Vial) 1,000 mcg IM Q7D [facility] Stop: 01/11/24 15:01 Last Admin: 12/29/23 19:50 Dose: Not Given Famotidine (Famotidine 20 Mg Tablet) 20 mg PO DAILY [facility] Last Admin: 01/01/24 09:16 Dose: 20 mg Loperamide HCl (Loperamide Hcl 2 Mg Capsule) 2 mg PO Q4H PRN PRN Reason: loose stools Last Admin: 11/12/23 11:09 Dose: 2 mg Magnesium Hydroxide (Milk Of Magnesia 30 Ml Oral.Susp) 30 ml PO DAILY PRN PRN Reason: Constipation Memantine (Memantine Hcl 5 Mg Tablet) 5 mg PO DAILY [facility] Last Admin: 01/01/24 09:16 Dose: 5 mg Ondansetron HCl (Ondansetron Odt 4 Mg Tab.Rapdis) 4 mg TRANSLINGU Q8H PRN PRN Reason: Nausea and Vomiting Last Admin: 12/02/23 11:31 Dose: 4 mg Risperidone (Risperidone 1 Mg Tablet) 1 mg PO BEDTIME [facility] Last Admin: 01/01/24 20:22 Dose: 1 mg Senna (Sennosides 8.6 Mg Tablet) 8.6 mg PO BEDTIME [facility] Last Admin: 01/01/24 20:22 Dose: 8.6 mg Trazodone HCl (Trazodone Hcl 50 Mg Tablet) 50 mg PO BEDTIME PRN PRN Reason: Insomnia Last Admin: 01/01/24 20:22 Dose: 50 mg Allergies Allergies Allergy/AdvReac Type Severity Reaction Status Date / Time omeprazole Allergy Unknown Verified 10/30/23 00:09 Assessment & Plan Assessment & Plan (1) Schizophrenia: Status: Acute Code(s): F20.9 - Schizophrenia, unspecified Plan The patient is a 63-year-old male with a past history of schizophrenia who had been in and out of several facilities in the last year with severe hypoactive behavior, catatonic like symptoms and chronic noncompliance who needed to go for Section 7 and 8 for ECT. Even though that he had been treated with antipsychotics he remains still internally preoccupied. Plan 1. As per the primary team we are going to hold ECT, the patient improved slightly but still he is hypoactive. Most of his symptoms can be explained due to negative symptoms of schizophrenia and chronic noncompliance. 2. Continue with psychotropics as prescribed. 3. Reassessment with results. Reason for continued inpatient stay Substantial Risk for: inability to function, rapid decompensation and med/psych decompensation Time Spent With Patient Time: Total time managing care of this patient today _20___ minutes.
[2024-01-02] MEDS: Famotidine 20 MG TABLET PO (10:24)
[2024-01-02] MEDS: Memantine HCl 5 MG TABLET PO (10:25)
[2024-01-02 20:00] VITALS: BP 103/70; PULSE 94; RESP 18; TEMP 36.7; O2SAT 96
[2024-01-02] MEDS: Sennosides 8.6 MG TABLET PO (20:37)
[2024-01-02] MEDS: traZODone HCL 50 MG TABLET PO (20:37)
[2024-01-02] MEDS: risperiDONE 1 MG TABLET PO (20:37)
[2024-01-03 08:00] VITALS: BP 101/65; PULSE 78; RESP 17; TEMP 36.6; O2SAT 96
[2024-01-03] MEDS: Famotidine 20 MG TABLET PO (08:23)
[2024-01-03] MEDS: Memantine HCl 5 MG TABLET PO (08:23)
--- NOTE | 2024-01-03 10:27 | HO.PSYCHPN ---
Subjective Subjective Date of Service: 01/03/24 Reason For Visit: Schizoaffective disorder, unspecified type Subjective Notes: Section 8 Interim History: Pt had some difficulty sleeping through the night. He is more alert, visible on the unit. He reports he is worried that his roommate may be trying to harm him. He states that roommate has not said anything to him but I can see his body language. Will restart remeron for sleep. No behavioral concerns. VS stable. He is eating bit more, asking for ensure. Hygiene improved but not oral care. severe halitosis. Review of Systems Review of Systems unremarkable Yes all other systems are reviewed and are negative Mental Status Exam Mental Status Exam Narrative: Appearance: cachectic, malnourished, improved hygiene, in NAD Behavior: cooperative Psychomotor: retardation noted Speech: mostly clear, regular rate, more spontaneous TP: mostly linear, not much detail provided TC: feeling hungry and eating Mood: tired Affect: constricted SI: denies HI: denies VH/AH:none Delusions: not overt reports. Insight/judgment: impaired x 2. memory/cog: alert, oriented not oriented to month, year or month or place. Diagnostics Vital Signs (24Hr): Vital Signs - 24 hr 01/02/24 20:00 01/03/24 08:00 Temperature 98.1 F 97.8 F Pulse Rate 94 78 Respiratory Rate 18 17 Blood Pressure 103/70 101/65 Pulse Oximetry 96 96 Oxygen Delivery Method Room Air Room Air BMI result Body Mass Index 17.3 Labs 12/21/23 16:53 12/21/23 16:53 Imaging Radiology Impressions: ITS Impressions Chest X-Ray 11/14/23 15:16 IMPRESSION: No evidence of acute disease. No pulmonary mass, pneumonia or pleural effusion. Chest CT 12/21/23 14:32 IMPRESSION: 1. No focal infiltrate is seen. 2. A 4 mm noncalcified subpleural nodule is seen within the posterior segment of the right upper lobe. According to the UPDATED 2017 Fleischner Society recommendations, the advised follow-up imaging for solid nodules < 6 mm is: LOW RISK PATIENT: No routine follow-up. HIGH RISK PATIENT: Optional CT at 12 months. 3. There is no thoracic lymphadenopathy or pleural effusion. 4. There is a marked kyphoscoliosis. No acute or aggressive osseous lesion is seen. 5. There is mild cholelithiasis. Fleischner guidelines were followed. Medications Medications Current Medications Acetaminophen (Acetaminophen 325 Mg Tablet) 650 mg PO Q6H PRN PRN Reason: Headache/Pain Mild Scale (1-3) Last Admin: 12/20/23 21:13 Dose: 650 mg Al Hydroxide/Mg Hydroxide (Magnesium Hydrox/Alum Hydrox 30 Ml Oral.Susp) 30 ml PO Q6H PRN PRN Reason: Heartburn/Nausea Last Admin: 10/31/23 23:58 Dose: 30 ml Cyanocobalamin (Cyanocobalamin (Vitamin B-12) 1,000 Mcg/Ml Vial) 1,000 mcg IM Q7D [facility] Stop: 01/11/24 15:01 Last Admin: 12/29/23 19:50 Dose: Not Given Famotidine (Famotidine 20 Mg Tablet) 20 mg PO DAILY [facility] Last Admin: 01/03/24 08:23 Dose: 20 mg Loperamide HCl (Loperamide Hcl 2 Mg Capsule) 2 mg PO Q4H PRN PRN Reason: loose stools Last Admin: 11/12/23 11:09 Dose: 2 mg Magnesium Hydroxide (Milk Of Magnesia 30 Ml Oral.Susp) 30 ml PO DAILY PRN PRN Reason: Constipation Memantine (Memantine Hcl 5 Mg Tablet) 5 mg PO DAILY [facility] Last Admin: 01/03/24 08:23 Dose: 5 mg Ondansetron HCl (Ondansetron Odt 4 Mg Tab.Rapdis) 4 mg TRANSLINGU Q8H PRN PRN Reason: Nausea and Vomiting Last Admin: 12/02/23 11:31 Dose: 4 mg Risperidone (Risperidone 1 Mg Tablet) 1 mg PO BEDTIME [facility] Last Admin: 01/02/24 20:37 Dose: 1 mg Senna (Sennosides 8.6 Mg Tablet) 8.6 mg PO BEDTIME [facility] Last Admin: 01/02/24 20:37 Dose: 8.6 mg Trazodone HCl (Trazodone Hcl 50 Mg Tablet) 50 mg PO BEDTIME PRN PRN Reason: Insomnia Last Admin: 01/02/24 20:37 Dose: 50 mg Allergies Allergies Allergy/AdvReac Type Severity Reaction Status Date / Time omeprazole Allergy Unknown Verified 10/30/23 00:09 Assessment & Plan Assessment & Plan (1) Schizophrenia: Status: Acute Code(s): F20.9 - Schizophrenia, unspecified Plan The patient is a 63-year-old male with a past history of schizophrenia who had been in and out of several facilities in the last year with severe hypoactive behavior, catatonic like symptoms and chronic noncompliance who needed to go for Section 7 and 8 for ECT. Even though that he had been treated with antipsychotics he remains still internally preoccupied. Plan 01/02 continue tx. added remeron 15mg po qhs. continue risperidone 1mg po qhs. Reason for continued inpatient stay Substantial Risk for: inability to function Time Spent With Patient Time: Total time managing care of this patient today ____ minutes.
[2024-01-03 20:00] VITALS: BP 126/78; PULSE 89; RESP 18; TEMP 36.6; O2SAT 97
[2024-01-03] MEDS: traZODone HCL 50 MG TABLET PO (20:19)
[2024-01-03] MEDS: risperiDONE 1 MG TABLET PO (20:19)
[2024-01-03] MEDS: Sennosides 8.6 MG TABLET PO (20:19)
[2024-01-03] MEDS: Mirtazapine 15 MG TABLET PO (20:19)
[2024-01-04] MEDS: Memantine HCl 5 MG TABLET PO (09:27)
[2024-01-04] MEDS: Famotidine 20 MG TABLET PO (09:27)
--- NOTE | 2024-01-04 10:55 | P.PNPSI_ITS ---
Subjective Subjective Date of Service: 01/04/24 Reason For Visit: Schizoaffective disorder, unspecified type Subjective Notes: Section 8 Interim History: Pt had some difficulty sleeping through the night. Pt talking more, spontaneous, although poverty of thought. He reports feeling well overall. he reports he is worried about his roommate who he suspects may be wanting to hurt him. When asked how does he know, he states mostly body language. He has been walking around the unit, goes to some groups, engaging more with staff. He denies SI/HI. Review of Systems Review of Systems unremarkable Yes all other systems are reviewed and are negative Mental Status Exam Mental Status Exam Narrative: Appearance: cachectic, malnourished, improved hygiene, in NAD Behavior: cooperative Psychomotor: retardation noted Speech: mostly clear, regular rate, more spontaneous TP: mostly linear, not much detail provided TC: feeling hungry and eating Mood: tired Affect: constricted SI: denies HI: denies VH/AH:none Delusions: not overt reports. Insight/judgment: impaired x 2. memory/cog: alert, oriented not oriented to month, year or month or place. Diagnostics Vital Signs (24Hr): Vital Signs - 24 hr 01/03/24 20:00 01/04/24 09:20 Temperature 97.8 F Pulse Rate 89 Respiratory Rate 18 Blood Pressure 126/78 Pulse Oximetry 97 Oxygen Delivery Method Room Air Nasal Cannula BMI result Body Mass Index 17.3 Labs 12/21/23 16:53 12/21/23 16:53 Imaging Radiology Impressions: ITS Impressions Chest X-Ray 11/14/23 15:16 IMPRESSION: No evidence of acute disease. No pulmonary mass, pneumonia or pleural effusion. Chest CT 12/21/23 14:32 IMPRESSION: 1. No focal infiltrate is seen. 2. A 4 mm noncalcified subpleural nodule is seen within the posterior segment of the right upper lobe. According to the UPDATED 2017 Fleischner Society recommendations, the advised follow-up imaging for solid nodules < 6 mm is: LOW RISK PATIENT: No routine follow-up. HIGH RISK PATIENT: Optional CT at 12 months. 3. There is no thoracic lymphadenopathy or pleural effusion. 4. There is a marked kyphoscoliosis. No acute or aggressive osseous lesion is seen. 5. There is mild cholelithiasis. Fleischner guidelines were followed. Medications Medications Current Medications Acetaminophen (Acetaminophen 325 Mg Tablet) 650 mg PO Q6H PRN PRN Reason: Headache/Pain Mild Scale (1-3) Last Admin: 12/20/23 21:13 Dose: 650 mg Al Hydroxide/Mg Hydroxide (Magnesium Hydrox/Alum Hydrox 30 Ml Oral.Susp) 30 ml PO Q6H PRN PRN Reason: Heartburn/Nausea Last Admin: 10/31/23 23:58 Dose: 30 ml Cyanocobalamin (Cyanocobalamin (Vitamin B-12) 1,000 Mcg/Ml Vial) 1,000 mcg IM Q7D [facility] Stop: 01/11/24 15:01 Last Admin: 12/29/23 19:50 Dose: Not Given Famotidine (Famotidine 20 Mg Tablet) 20 mg PO DAILY [facility] Last Admin: 01/04/24 09:27 Dose: 20 mg Loperamide HCl (Loperamide Hcl 2 Mg Capsule) 2 mg PO Q4H PRN PRN Reason: loose stools Last Admin: 11/12/23 11:09 Dose: 2 mg Magnesium Hydroxide (Milk Of Magnesia 30 Ml Oral.Susp) 30 ml PO DAILY PRN PRN Reason: Constipation Memantine (Memantine Hcl 5 Mg Tablet) 5 mg PO DAILY [facility] Last Admin: 01/04/24 09:27 Dose: 5 mg Mirtazapine (Mirtazapine 15 Mg Tablet) 15 mg PO BEDTIME [facility] Last Admin: 01/03/24 20:19 Dose: 15 mg Ondansetron HCl (Ondansetron Odt 4 Mg Tab.Rapdis) 4 mg TRANSLINGU Q8H PRN PRN Reason: Nausea and Vomiting Last Admin: 12/02/23 11:31 Dose: 4 mg Risperidone (Risperidone 1 Mg Tablet) 1 mg PO BEDTIME [facility] Last Admin: 01/03/24 20:19 Dose: 1 mg Senna (Sennosides 8.6 Mg Tablet) 8.6 mg PO BEDTIME [facility] Last Admin: 01/03/24 20:19 Dose: 8.6 mg Trazodone HCl (Trazodone Hcl 50 Mg Tablet) 50 mg PO BEDTIME PRN PRN Reason: Insomnia Last Admin: 01/03/24 20:19 Dose: 50 mg Allergies Allergies Allergy/AdvReac Type Severity Reaction Status Date / Time omeprazole Allergy Unknown Verified 10/30/23 00:09 Assessment & Plan Assessment & Plan (1) Schizophrenia: Status: Acute Code(s): F20.9 - Schizophrenia, unspecified Plan The patient is a 63-year-old male with a past history of schizophrenia who had been in and out of several facilities in the last year with severe hypoactive behavior, catatonic like symptoms and chronic noncompliance who needed to go for Section 7 and 8 for ECT. Even though that he had been treated with antipsychotics he remains still internally preoccupied. Plan 01/02 continue tx. added remeron 15mg po qhs. continue risperidone 1mg po qhs. 01/03 may consider increasing risperidone- but trying to keep balance between not worsening symptoms of apathy and abulia. He has responded positively to ECT, even if partially. Reason for continued inpatient stay Substantial Risk for: inability to function Time Spent With Patient Time: Total time managing care of this patient today ____ minutes.
[2024-01-04 20:00] VITALS: BP 90/60; PULSE 92; RESP 18; TEMP 36.6; O2SAT 97
[2024-01-04] MEDS: Mirtazapine 15 MG TABLET PO (21:01)
[2024-01-04] MEDS: traZODone HCL 50 MG TABLET PO (21:01)
[2024-01-04] MEDS: Sennosides 8.6 MG TABLET PO (21:01)
[2024-01-04] MEDS: risperiDONE 1 MG TABLET PO (21:01)
[2024-01-05 08:00] VITALS: BP 100/62; PULSE 89; RESP 18; TEMP 36.4; O2SAT 97
[2024-01-05] MEDS: Famotidine 20 MG TABLET PO (08:36)
[2024-01-05] MEDS: Memantine HCl 5 MG TABLET PO (08:36)
--- NOTE | 2024-01-05 10:56 | HO.PSYCHPN ---
Subjective Subjective Date of Service: 01/05/24 Reason For Visit: Schizoaffective disorder, unspecified type Subjective Notes: Section 8 Interim History: Pt slept through the night. He is more visible and less guarded and suspicious of staff or peer. He denies SI/HI. He continues to report that he is worried about his roommate... thinks roommate may be trying to harm him not because roommate has made any threats but because pt states his body language. However, this peer has not been aggressive. He is taking medications as prescribed, eating more. Review of Systems Review of Systems unremarkable Yes all other systems are reviewed and are negative Mental Status Exam Mental Status Exam Narrative: Appearance: cachectic, malnourished, improved hygiene, in NAD Behavior: cooperative Psychomotor: retardation noted Speech: mostly clear, regular rate, more spontaneous TP: mostly linear, not much detail provided TC: feeling hungry and eating Mood: tired Affect: constricted SI: denies HI: denies VH/AH:none Delusions: not overt reports. Insight/judgment: impaired x 2. memory/cog: alert, oriented not oriented to month, year or month or place. Diagnostics Vital Signs (24Hr): Vital Signs - 24 hr 01/04/24 20:00 01/05/24 08:00 Temperature 97.9 F 97.6 F Pulse Rate 92 89 Respiratory Rate 18 18 Blood Pressure 90/60 100/62 Pulse Oximetry 97 97 Oxygen Delivery Method Room Air Room Air BMI result Body Mass Index 17.3 Labs 12/21/23 16:53 12/21/23 16:53 Imaging Radiology Impressions: ITS Impressions Chest X-Ray 11/14/23 15:16 IMPRESSION: No evidence of acute disease. No pulmonary mass, pneumonia or pleural effusion. Chest CT 12/21/23 14:32 IMPRESSION: 1. No focal infiltrate is seen. 2. A 4 mm noncalcified subpleural nodule is seen within the posterior segment of the right upper lobe. According to the UPDATED 2017 Fleischner Society recommendations, the advised follow-up imaging for solid nodules < 6 mm is: LOW RISK PATIENT: No routine follow-up. HIGH RISK PATIENT: Optional CT at 12 months. 3. There is no thoracic lymphadenopathy or pleural effusion. 4. There is a marked kyphoscoliosis. No acute or aggressive osseous lesion is seen. 5. There is mild cholelithiasis. Fleischner guidelines were followed. Medications Medications Current Medications Acetaminophen (Acetaminophen 325 Mg Tablet) 650 mg PO Q6H PRN PRN Reason: Headache/Pain Mild Scale (1-3) Last Admin: 12/20/23 21:13 Dose: 650 mg Al Hydroxide/Mg Hydroxide (Magnesium Hydrox/Alum Hydrox 30 Ml Oral.Susp) 30 ml PO Q6H PRN PRN Reason: Heartburn/Nausea Last Admin: 10/31/23 23:58 Dose: 30 ml Cyanocobalamin (Cyanocobalamin (Vitamin B-12) 1,000 Mcg/Ml Vial) 1,000 mcg IM Q7D [facility] Stop: 01/11/24 15:01 Last Admin: 01/04/24 16:40 Dose: Not Given Famotidine (Famotidine 20 Mg Tablet) 20 mg PO DAILY [facility] Last Admin: 01/05/24 08:36 Dose: 20 mg Loperamide HCl (Loperamide Hcl 2 Mg Capsule) 2 mg PO Q4H PRN PRN Reason: loose stools Last Admin: 11/12/23 11:09 Dose: 2 mg Magnesium Hydroxide (Milk Of Magnesia 30 Ml Oral.Susp) 30 ml PO DAILY PRN PRN Reason: Constipation Memantine (Memantine Hcl 5 Mg Tablet) 5 mg PO DAILY [facility] Last Admin: 01/05/24 08:36 Dose: 5 mg Mirtazapine (Mirtazapine 15 Mg Tablet) 15 mg PO BEDTIME [facility] Last Admin: 01/04/24 21:01 Dose: 15 mg Ondansetron HCl (Ondansetron Odt 4 Mg Tab.Rapdis) 4 mg TRANSLINGU Q8H PRN PRN Reason: Nausea and Vomiting Last Admin: 12/02/23 11:31 Dose: 4 mg Risperidone (Risperidone 1 Mg Tablet) 1 mg PO BEDTIME [facility] Last Admin: 01/04/24 21:01 Dose: 1 mg Senna (Sennosides 8.6 Mg Tablet) 8.6 mg PO BEDTIME [facility] Last Admin: 01/04/24 21:01 Dose: 8.6 mg Trazodone HCl (Trazodone Hcl 50 Mg Tablet) 50 mg PO BEDTIME PRN PRN Reason: Insomnia Last Admin: 01/04/24 21:01 Dose: 50 mg Allergies Allergies Allergy/AdvReac Type Severity Reaction Status Date / Time omeprazole Allergy Unknown Verified 10/30/23 00:09 Assessment & Plan Assessment & Plan (1) Schizophrenia: Status: Acute Code(s): F20.9 - Schizophrenia, unspecified Plan The patient is a 63-year-old male with a past history of schizophrenia who had been in and out of several facilities in the last year with severe hypoactive behavior, catatonic like symptoms and chronic noncompliance who needed to go for Section 7 and 8 for ECT. Even though that he had been treated with antipsychotics he remains still internally preoccupied. Plan 01/02 continue tx. added remeron 15mg po qhs. continue risperidone 1mg po qhs. 01/03 may consider increasing risperidone- but trying to keep balance between not worsening symptoms of apathy and abulia. He has responded positively to ECT, even if partially. 01/04 continue tx. Reason for continued inpatient stay Substantial Risk for: inability to function Time Spent With Patient Time: Total time managing care of this patient today ____ minutes.
--- NOTE | 2024-01-05 11:55 | MHC.CLN ---
F/U DIET=REGULAR. ENSURE TID PROVIDES 1050 KCALS, 60 G PROTEIN. PATIENT ACCEPTS SUPPLEMENT. ENCOURAGE ADDITIONAL SNACKS AND SUPPLEMENTS FROM UNIT KITCHEN. PO INTAKE CONTINUES TO BE VARIABLE, 0-90%. CONTINUE CURRENT DIET, SUPPLEMENTS AND ENCOURAGE INTAKE ABLE. RD TO FOLLOW WEEKLY.
[2024-01-05 20:00] VITALS: BP 105/73; PULSE 100; RESP 18; TEMP 36.6; O2SAT 98
[2024-01-05] MEDS: risperiDONE 1 MG TABLET PO (21:10)
[2024-01-05] MEDS: Sennosides 8.6 MG TABLET PO (21:10)
[2024-01-05] MEDS: Acetaminophen 325 MG TABLET 650 MG PO (21:11)
[2024-01-05] MEDS: Mirtazapine 15 MG TABLET PO (21:11)
[2024-01-05] MEDS: traZODone HCL 50 MG TABLET PO (21:11)
[2024-01-06 07:00] VITALS: BMI 17.5
[2024-01-06 08:30] VITALS: BP 102/72; PULSE 98; RESP 18; TEMP 36.6; O2SAT 98
[2024-01-06] MEDS: Memantine HCl 5 MG TABLET PO (09:12)
[2024-01-06] MEDS: Famotidine 20 MG TABLET PO (09:12)
--- NOTE | 2024-01-06 11:39 | HO.PSYCHPN ---
Subjective Subjective Date of Service: 01/06/24 Reason For Visit: Schizoaffective disorder, unspecified type Interim History: Pt reports feeling better. visible on unit. eating He made no paranoid statments in interview. poverty of thought and speech noted. He has been walking around the unit, goes to some groups, engaging more with staff. He denies SI/HI. Review of Systems Review of Systems unremarkable Yes all other systems are reviewed and are negative Mental Status Exam Mental Status Exam Narrative: Appearance: cachectic, malnourished, improved hygiene, in NAD Behavior: cooperative Psychomotor: retardation noted Speech: mostly clear, regular rate, more spontaneous TP: mostly linear, not much detail provided TC: feeling hungry and eating Mood: tired Affect: constricted SI: denies HI: denies VH/AH:none Delusions: not overt reports. Insight/judgment: impaired x 2. memory/cog: alert, oriented not oriented to month, year or month or place. Patient Appearance: Appropriate and Unkempt Patient Orientation: Person and Situation Level of Consciousness: Awake Patient Behavior: Guarded and Passive Mood Description: Withdrawn Affect Description: Blunted Patient Cognition Impaired: Yes Ability to Follow Directions: Good Speech Pattern: Clear Diagnostics Vital Signs (24Hr): Vital Signs - 24 hr 01/05/24 20:00 01/06/24 08:30 Temperature 98 F 98 F Pulse Rate 100 98 Respiratory Rate 18 18 Blood Pressure 105/73 102/72 Pulse Oximetry 98 98 Oxygen Delivery Method Room Air Room Air BMI result Body Mass Index 38.5 Labs 12/21/23 16:53 12/21/23 16:53 Imaging Radiology Impressions: ITS Impressions Chest X-Ray 11/14/23 15:16 IMPRESSION: No evidence of acute disease. No pulmonary mass, pneumonia or pleural effusion. Chest CT 12/21/23 14:32 IMPRESSION: 1. No focal infiltrate is seen. 2. A 4 mm noncalcified subpleural nodule is seen within the posterior segment of the right upper lobe. According to the UPDATED 2017 Fleischner Society recommendations, the advised follow-up imaging for solid nodules < 6 mm is: LOW RISK PATIENT: No routine follow-up. HIGH RISK PATIENT: Optional CT at 12 months. 3. There is no thoracic lymphadenopathy or pleural effusion. 4. There is a marked kyphoscoliosis. No acute or aggressive osseous lesion is seen. 5. There is mild cholelithiasis. Fleischner guidelines were followed. Medications Medications Current Medications Acetaminophen (Acetaminophen 325 Mg Tablet) 650 mg PO Q6H PRN PRN Reason: Headache/Pain Mild Scale (1-3) Last Admin: 01/05/24 21:11 Dose: 650 mg Al Hydroxide/Mg Hydroxide (Magnesium Hydrox/Alum Hydrox 30 Ml Oral.Susp) 30 ml PO Q6H PRN PRN Reason: Heartburn/Nausea Last Admin: 10/31/23 23:58 Dose: 30 ml Cyanocobalamin (Cyanocobalamin (Vitamin B-12) 1,000 Mcg/Ml Vial) 1,000 mcg IM Q7D [facility] Stop: 01/11/24 15:01 Last Admin: 01/04/24 16:40 Dose: Not Given Famotidine (Famotidine 20 Mg Tablet) 20 mg PO DAILY [facility] Last Admin: 01/06/24 09:12 Dose: 20 mg Loperamide HCl (Loperamide Hcl 2 Mg Capsule) 2 mg PO Q4H PRN PRN Reason: loose stools Last Admin: 11/12/23 11:09 Dose: 2 mg Magnesium Hydroxide (Milk Of Magnesia 30 Ml Oral.Susp) 30 ml PO DAILY PRN PRN Reason: Constipation Memantine (Memantine Hcl 5 Mg Tablet) 5 mg PO DAILY [facility] Last Admin: 01/06/24 09:12 Dose: 5 mg Mirtazapine (Mirtazapine 15 Mg Tablet) 15 mg PO BEDTIME [facility] Last Admin: 01/05/24 21:11 Dose: 15 mg Ondansetron HCl (Ondansetron Odt 4 Mg Tab.Rapdis) 4 mg TRANSLINGU Q8H PRN PRN Reason: Nausea and Vomiting Last Admin: 12/02/23 11:31 Dose: 4 mg Risperidone (Risperidone 1 Mg Tablet) 1 mg PO BEDTIME [facility] Last Admin: 01/05/24 21:10 Dose: 1 mg Senna (Sennosides 8.6 Mg Tablet) 8.6 mg PO BEDTIME [facility] Last Admin: 01/05/24 21:10 Dose: 8.6 mg Trazodone HCl (Trazodone Hcl 50 Mg Tablet) 50 mg PO BEDTIME PRN PRN Reason: Insomnia Last Admin: 01/05/24 21:11 Dose: 50 mg Allergies Allergies Allergy/AdvReac Type Severity Reaction Status Date / Time omeprazole Allergy Unknown Verified 10/30/23 00:09 Assessment & Plan Assessment & Plan (1) Schizophrenia: Status: Acute Code(s): F20.9 - Schizophrenia, unspecified Plan The patient is a 63-year-old male with a past history of schizophrenia who had been in and out of several facilities in the last year with severe hypoactive behavior, catatonic like symptoms and chronic noncompliance who needed to go for Section 7 and 8 for ECT. Even though that he had been treated with antipsychotics he remains still internally preoccupied. Plan 01/02 continue tx. added remeron 15mg po qhs. continue risperidone 1mg po qhs. 01/03 may consider increasing risperidone- but trying to keep balance between not worsening symptoms of apathy and abulia. He has responded positively to ECT, even if partially. 01/05 continue tx plan Reason for continued inpatient stay Substantial Risk for: harm to self and inability to function Time Spent With Patient Time: Total time managing care of this patient today ____ minutes.
[2024-01-06 20:00] VITALS: BP 99/60; PULSE 99; RESP 16; TEMP 36.4; O2SAT 95
[2024-01-06] MEDS: Mirtazapine 15 MG TABLET PO (20:41)
[2024-01-06] MEDS: risperiDONE 1 MG TABLET PO (20:41)
[2024-01-06] MEDS: Sennosides 8.6 MG TABLET PO (20:41)
[2024-01-06] MEDS: Loperamide HCl 2 MG CAPSULE PO (23:45)
[2024-01-07] MEDS: Memantine HCl 5 MG TABLET PO (08:29)
[2024-01-07] MEDS: Famotidine 20 MG TABLET PO (08:29)
[2024-01-07 08:31] VITALS: BP 127/91; PULSE 95; RESP 18; TEMP 36.6; O2SAT 96
--- NOTE | 2024-01-07 09:56 | HO.PSYCHPN ---
Subjective Subjective Date of Service: 01/07/24 Reason For Visit: Schizoaffective disorder, unspecified type Subjective Notes: Section 8 Interim History: Pt slept through the night. He was in bed this morning but was up for breakfast. He denies SI/HI. Poverty of thought, no behavioral concerns. taking meds as prescribed. Review of Systems Review of Systems unremarkable Yes all other systems are reviewed and are negative Mental Status Exam Mental Status Exam Narrative: Appearance: cachectic, malnourished, improved hygiene, in NAD Behavior: cooperative Psychomotor: retardation noted Speech: mostly clear, regular rate, more spontaneous TP: mostly linear, not much detail provided TC: feeling hungry and eating Mood: tired Affect: constricted SI: denies HI: denies VH/AH:none Delusions: not overt reports. Insight/judgment: impaired x 2. memory/cog: alert, oriented not oriented to month, year or month or place. Diagnostics Vital Signs (24Hr): Vital Signs - 24 hr 01/06/24 20:00 01/07/24 08:31 Temperature 97.6 F 97.9 F Pulse Rate 99 95 Respiratory Rate 16 18 Blood Pressure 99/60 127/91 H Pulse Oximetry 95 96 Oxygen Delivery Method Room Air Room Air BMI result Body Mass Index 17.5 Labs 12/21/23 16:53 12/21/23 16:53 Imaging Radiology Impressions: ITS Impressions Chest X-Ray 11/14/23 15:16 IMPRESSION: No evidence of acute disease. No pulmonary mass, pneumonia or pleural effusion. Chest CT 12/21/23 14:32 IMPRESSION: 1. No focal infiltrate is seen. 2. A 4 mm noncalcified subpleural nodule is seen within the posterior segment of the right upper lobe. According to the UPDATED 2017 Fleischner Society recommendations, the advised follow-up imaging for solid nodules < 6 mm is: LOW RISK PATIENT: No routine follow-up. HIGH RISK PATIENT: Optional CT at 12 months. 3. There is no thoracic lymphadenopathy or pleural effusion. 4. There is a marked kyphoscoliosis. No acute or aggressive osseous lesion is seen. 5. There is mild cholelithiasis. Fleischner guidelines were followed. Medications Medications Current Medications Acetaminophen (Acetaminophen 325 Mg Tablet) 650 mg PO Q6H PRN PRN Reason: Headache/Pain Mild Scale (1-3) Last Admin: 01/05/24 21:11 Dose: 650 mg Al Hydroxide/Mg Hydroxide (Magnesium Hydrox/Alum Hydrox 30 Ml Oral.Susp) 30 ml PO Q6H PRN PRN Reason: Heartburn/Nausea Last Admin: 10/31/23 23:58 Dose: 30 ml Cyanocobalamin (Cyanocobalamin (Vitamin B-12) 1,000 Mcg/Ml Vial) 1,000 mcg IM Q7D [facility] Stop: 01/11/24 15:01 Last Admin: 01/04/24 16:40 Dose: Not Given Famotidine (Famotidine 20 Mg Tablet) 20 mg PO DAILY [facility] Last Admin: 01/07/24 08:29 Dose: 20 mg Loperamide HCl (Loperamide Hcl 2 Mg Capsule) 2 mg PO Q4H PRN PRN Reason: loose stools Last Admin: 01/06/24 23:45 Dose: 2 mg Magnesium Hydroxide (Milk Of Magnesia 30 Ml Oral.Susp) 30 ml PO DAILY PRN PRN Reason: Constipation Memantine (Memantine Hcl 5 Mg Tablet) 5 mg PO DAILY [facility] Last Admin: 01/07/24 08:29 Dose: 5 mg Mirtazapine (Mirtazapine 15 Mg Tablet) 15 mg PO BEDTIME [facility] Last Admin: 01/06/24 20:41 Dose: 15 mg Ondansetron HCl (Ondansetron Odt 4 Mg Tab.Rapdis) 4 mg TRANSLINGU Q8H PRN PRN Reason: Nausea and Vomiting Last Admin: 12/02/23 11:31 Dose: 4 mg Risperidone (Risperidone 1 Mg Tablet) 1 mg PO BEDTIME [facility] Last Admin: 01/06/24 20:41 Dose: 1 mg Senna (Sennosides 8.6 Mg Tablet) 8.6 mg PO BEDTIME [facility] Last Admin: 01/06/24 20:41 Dose: 8.6 mg Trazodone HCl (Trazodone Hcl 50 Mg Tablet) 50 mg PO BEDTIME PRN PRN Reason: Insomnia Last Admin: 01/05/24 21:11 Dose: 50 mg Allergies Allergies Allergy/AdvReac Type Severity Reaction Status Date / Time omeprazole Allergy Unknown Verified 10/30/23 00:09 Assessment & Plan Assessment & Plan (1) Schizophrenia: Status: Acute Code(s): F20.9 - Schizophrenia, unspecified Plan The patient is a 63-year-old male with a past history of schizophrenia who had been in and out of several facilities in the last year with severe hypoactive behavior, catatonic like symptoms and chronic noncompliance who needed to go for Section 7 and 8 for ECT. Even though that he had been treated with antipsychotics he remains still internally preoccupied. Plan 01/02 continue tx. added remeron 15mg po qhs. continue risperidone 1mg po qhs. 01/03 may consider increasing risperidone- but trying to keep balance between not worsening symptoms of apathy and abulia. He has responded positively to ECT, even if partially. 01/04 continue tx. 01/06 continue tx. Reason for continued inpatient stay Substantial Risk for: inability to function Time Spent With Patient Time: Total time managing care of this patient today ____ minutes.
[2024-01-07 20:00] VITALS: BP 99/60; PULSE 90; RESP 17; TEMP 36.5; O2SAT 94
[2024-01-07] MEDS: Sennosides 8.6 MG TABLET PO (20:16)
[2024-01-07] MEDS: traZODone HCL 50 MG TABLET PO (20:16)
[2024-01-07] MEDS: risperiDONE 1 MG TABLET PO (20:16)
[2024-01-07] MEDS: Mirtazapine 15 MG TABLET PO (20:16)
[2024-01-08 08:05] VITALS: BP 105/69; PULSE 94; RESP 18; TEMP 36.8; O2SAT 97
[2024-01-08] MEDS: Memantine HCl 5 MG TABLET PO (08:48)
[2024-01-08] MEDS: Famotidine 20 MG TABLET PO (08:48)
--- NOTE | 2024-01-08 11:09 | P.PNPSI_ITS ---
Subjective Subjective Date of Service: 01/08/24 Reason For Visit: Schizoaffective disorder, unspecified type Interim History: wants to go home. in bed. per staff, doing better. taking ensure. in bed much of the time, but spending more time outside of his room. Mental Status Exam Mental Status Exam Narrative: Appearance: cachectic, malnourished, improved hygiene, in NAD Behavior: cooperative Psychomotor: retardation noted Speech: mostly clear, regular rate, more spontaneous TP: mostly linear, not much detail provided TC: wants to go home Mood: not assessed Affect: constricted SI: none expressed HI: none expressed VH/AH:none expressed Delusions: not overt reports. Insight/judgment: impaired x 2. Diagnostics Vital Signs (24Hr): Vital Signs - 24 hr 01/07/24 20:00 01/08/24 08:05 Temperature 97.7 F 98.2 F Pulse Rate 90 94 Respiratory Rate 17 18 Blood Pressure 99/60 105/69 Pulse Oximetry 94 97 Oxygen Delivery Method Room Air Room Air BMI result Body Mass Index 17.5 Labs 12/21/23 16:53 12/21/23 16:53 Imaging Radiology Impressions: ITS Impressions Chest X-Ray 11/14/23 15:16 IMPRESSION: No evidence of acute disease. No pulmonary mass, pneumonia or pleural effusion. Chest CT 12/21/23 14:32 IMPRESSION: 1. No focal infiltrate is seen. 2. A 4 mm noncalcified subpleural nodule is seen within the posterior segment of the right upper lobe. According to the UPDATED 2017 Fleischner Society recommendations, the advised follow-up imaging for solid nodules < 6 mm is: LOW RISK PATIENT: No routine follow-up. HIGH RISK PATIENT: Optional CT at 12 months. 3. There is no thoracic lymphadenopathy or pleural effusion. 4. There is a marked kyphoscoliosis. No acute or aggressive osseous lesion is seen. 5. There is mild cholelithiasis. Fleischner guidelines were followed. Medications Medications Current Medications Acetaminophen (Acetaminophen 325 Mg Tablet) 650 mg PO Q6H PRN PRN Reason: Headache/Pain Mild Scale (1-3) Last Admin: 01/05/24 21:11 Dose: 650 mg Al Hydroxide/Mg Hydroxide (Magnesium Hydrox/Alum Hydrox 30 Ml Oral.Susp) 30 ml PO Q6H PRN PRN Reason: Heartburn/Nausea Last Admin: 10/31/23 23:58 Dose: 30 ml Cyanocobalamin (Cyanocobalamin (Vitamin B-12) 1,000 Mcg/Ml Vial) 1,000 mcg IM Q7D [facility] Stop: 01/11/24 15:01 Last Admin: 01/04/24 16:40 Dose: Not Given Famotidine (Famotidine 20 Mg Tablet) 20 mg PO DAILY [facility] Last Admin: 01/08/24 08:48 Dose: 20 mg Loperamide HCl (Loperamide Hcl 2 Mg Capsule) 2 mg PO Q4H PRN PRN Reason: loose stools Last Admin: 01/06/24 23:45 Dose: 2 mg Magnesium Hydroxide (Milk Of Magnesia 30 Ml Oral.Susp) 30 ml PO DAILY PRN PRN Reason: Constipation Memantine (Memantine Hcl 5 Mg Tablet) 5 mg PO DAILY [facility] Last Admin: 01/08/24 08:48 Dose: 5 mg Mirtazapine (Mirtazapine 15 Mg Tablet) 15 mg PO BEDTIME [facility] Last Admin: 01/07/24 20:16 Dose: 15 mg Ondansetron HCl (Ondansetron Odt 4 Mg Tab.Rapdis) 4 mg TRANSLINGU Q8H PRN PRN Reason: Nausea and Vomiting Last Admin: 12/02/23 11:31 Dose: 4 mg Risperidone (Risperidone 1 Mg Tablet) 1 mg PO BEDTIME [facility] Last Admin: 01/07/24 20:16 Dose: 1 mg Senna (Sennosides 8.6 Mg Tablet) 8.6 mg PO BEDTIME [facility] Last Admin: 01/07/24 20:16 Dose: 8.6 mg Trazodone HCl (Trazodone Hcl 50 Mg Tablet) 50 mg PO BEDTIME PRN PRN Reason: Insomnia Last Admin: 01/07/24 20:16 Dose: 50 mg Allergies Allergies Allergy/AdvReac Type Severity Reaction Status Date / Time omeprazole Allergy Unknown Verified 10/30/23 00:09 Assessment & Plan Assessment & Plan (1) Schizophrenia: Status: Acute Code(s): F20.9 - Schizophrenia, unspecified Plan The patient is a 63-year-old male with a past history of schizophrenia who had been in and out of several facilities in the last year with severe hypoactive behavior, catatonic like symptoms and chronic noncompliance who needed to go for Section 7 and 8 for ECT. Even though that he had been treated with antipsychotics he remains still internally preoccupied. Plan 01/02 continue tx. added remeron 15mg po qhs. continue risperidone 1mg po qhs. 01/03 may consider increasing risperidone- but trying to keep balance between not worsening symptoms of apathy and abulia. He has responded positively to ECT, even if partially. 01/04 continue tx. 01/06 continue tx. 01/07: continue current mgmt. Reason for continued inpatient stay Substantial Risk for: inability to function Time Spent With Patient Time: Total time managing care of this patient today ____ minutes.
[2024-01-08 20:00] VITALS: BP 103/60; PULSE 85; RESP 17; TEMP 36.3; O2SAT 97
[2024-01-08] MEDS: traZODone HCL 50 MG TABLET PO (20:53)
[2024-01-08] MEDS: Sennosides 8.6 MG TABLET PO (20:53)
[2024-01-08] MEDS: risperiDONE 1 MG TABLET PO (20:53)
[2024-01-08] MEDS: Mirtazapine 15 MG TABLET PO (20:53)
[2024-01-09 08:00] VITALS: BP 106/62; PULSE 92; RESP 18; TEMP 36.9; O2SAT 97
[2024-01-09] MEDS: Memantine HCl 5 MG TABLET PO (08:06)
[2024-01-09] MEDS: Famotidine 20 MG TABLET PO (08:06)
--- NOTE | 2024-01-09 11:04 | HO.PSYCHPN ---
Subjective Subjective Date of Service: 01/09/24 Reason For Visit: Schizoaffective disorder, unspecified type Interim History: isolative, no issues. Mental Status Exam Mental Status Exam Narrative: Appearance: cachectic, malnourished, improved hygiene, in NAD Behavior: cooperative Psychomotor: retardation noted Speech: mostly clear, regular rate, more spontaneous TP: mostly linear, not much detail provided TC: wants to go home Mood: not assessed Affect: constricted SI: none expressed HI: none expressed VH/AH:none expressed Delusions: not overt reports. Insight/judgment: impaired x 2. Diagnostics Vital Signs (24Hr): Vital Signs - 24 hr 01/08/24 20:00 01/09/24 08:00 Temperature 97.4 F 98.4 F Pulse Rate 85 92 Respiratory Rate 17 18 Blood Pressure 103/60 106/62 Pulse Oximetry 97 97 Oxygen Delivery Method Room Air Room Air BMI result Body Mass Index 17.5 Labs 12/21/23 16:53 12/21/23 16:53 Imaging Radiology Impressions: ITS Impressions Chest X-Ray 11/14/23 15:16 IMPRESSION: No evidence of acute disease. No pulmonary mass, pneumonia or pleural effusion. Chest CT 12/21/23 14:32 IMPRESSION: 1. No focal infiltrate is seen. 2. A 4 mm noncalcified subpleural nodule is seen within the posterior segment of the right upper lobe. According to the UPDATED 2017 Fleischner Society recommendations, the advised follow-up imaging for solid nodules < 6 mm is: LOW RISK PATIENT: No routine follow-up. HIGH RISK PATIENT: Optional CT at 12 months. 3. There is no thoracic lymphadenopathy or pleural effusion. 4. There is a marked kyphoscoliosis. No acute or aggressive osseous lesion is seen. 5. There is mild cholelithiasis. Fleischner guidelines were followed. Medications Medications Current Medications Acetaminophen (Acetaminophen 325 Mg Tablet) 650 mg PO Q6H PRN PRN Reason: Headache/Pain Mild Scale (1-3) Last Admin: 01/05/24 21:11 Dose: 650 mg Al Hydroxide/Mg Hydroxide (Magnesium Hydrox/Alum Hydrox 30 Ml Oral.Susp) 30 ml PO Q6H PRN PRN Reason: Heartburn/Nausea Last Admin: 10/31/23 23:58 Dose: 30 ml Cyanocobalamin (Cyanocobalamin (Vitamin B-12) 1,000 Mcg/Ml Vial) 1,000 mcg IM Q7D [facility] Stop: 01/11/24 15:01 Last Admin: 01/04/24 16:40 Dose: Not Given Famotidine (Famotidine 20 Mg Tablet) 20 mg PO DAILY [facility] Last Admin: 01/09/24 08:06 Dose: 20 mg Loperamide HCl (Loperamide Hcl 2 Mg Capsule) 2 mg PO Q4H PRN PRN Reason: loose stools Last Admin: 01/06/24 23:45 Dose: 2 mg Magnesium Hydroxide (Milk Of Magnesia 30 Ml Oral.Susp) 30 ml PO DAILY PRN PRN Reason: Constipation Memantine (Memantine Hcl 5 Mg Tablet) 5 mg PO DAILY [facility] Last Admin: 01/09/24 08:06 Dose: 5 mg Mirtazapine (Mirtazapine 15 Mg Tablet) 15 mg PO BEDTIME [facility] Last Admin: 01/08/24 20:53 Dose: 15 mg Ondansetron HCl (Ondansetron Odt 4 Mg Tab.Rapdis) 4 mg TRANSLINGU Q8H PRN PRN Reason: Nausea and Vomiting Last Admin: 12/02/23 11:31 Dose: 4 mg Risperidone (Risperidone 1 Mg Tablet) 1 mg PO BEDTIME [facility] Last Admin: 01/08/24 20:53 Dose: 1 mg Senna (Sennosides 8.6 Mg Tablet) 8.6 mg PO BEDTIME [facility] Last Admin: 01/08/24 20:53 Dose: 8.6 mg Trazodone HCl (Trazodone Hcl 50 Mg Tablet) 50 mg PO BEDTIME PRN PRN Reason: Insomnia Last Admin: 01/08/24 20:53 Dose: 50 mg Allergies Allergies Allergy/AdvReac Type Severity Reaction Status Date / Time omeprazole Allergy Unknown Verified 10/30/23 00:09 Assessment & Plan Assessment & Plan (1) Schizophrenia: Status: Acute Code(s): F20.9 - Schizophrenia, unspecified Plan The patient is a 63-year-old male with a past history of schizophrenia who had been in and out of several facilities in the last year with severe hypoactive behavior, catatonic like symptoms and chronic noncompliance who needed to go for Section 7 and 8 for ECT. Even though that he had been treated with antipsychotics he remains still internally preoccupied. Plan 01/02 continue tx. added remeron 15mg po qhs. continue risperidone 1mg po qhs. 01/03 may consider increasing risperidone- but trying to keep balance between not worsening symptoms of apathy and abulia. He has responded positively to ECT, even if partially. 01/04 continue tx. 01/06 continue tx. 01/07: continue current mgmt. 01/08: no change. Reason for continued inpatient stay Substantial Risk for: inability to function Time Spent With Patient Time: Total time managing care of this patient today ____ minutes.
[2024-01-09 20:00] VITALS: BP 90/67; PULSE 89; RESP 17; TEMP 36.4; O2SAT 94
[2024-01-09] MEDS: Sennosides 8.6 MG TABLET PO (20:36)
[2024-01-09] MEDS: traZODone HCL 50 MG TABLET PO (20:37)
[2024-01-09] MEDS: risperiDONE 1 MG TABLET PO (20:37)
[2024-01-09] MEDS: Mirtazapine 15 MG TABLET PO (20:37)
[2024-01-10 08:00] VITALS: BP 86/62; PULSE 77; RESP 18; TEMP 36.5; O2SAT 94
[2024-01-10] MEDS: Memantine HCl 5 MG TABLET PO (09:08)
[2024-01-10] MEDS: Famotidine 20 MG TABLET PO (09:08)
--- NOTE | 2024-01-10 11:54 | HO.PSYCHPN ---
Subjective Subjective Date of Service: 01/10/24 Reason For Visit: Schizoaffective disorder, unspecified type Subjective Notes: Section 8 Interim History: Pt slept through the night. Pt speech continues to be more spontaneous. He is visible on the unit and walks around. Not very interactive with peers, but not guarded when approached. NO SI/HI. needs reminders for every aspects of care. Review of Systems Review of Systems unremarkable Yes all other systems are reviewed and are negative Mental Status Exam Mental Status Exam Narrative: Appearance: cachectic, malnourished, improved hygiene, in NAD Behavior: cooperative Psychomotor: retardation noted Speech: mostly clear, regular rate, more spontaneous TP: mostly linear, not much detail provided TC: wants to go home Mood: not assessed Affect: constricted SI: none expressed HI: none expressed VH/AH:none expressed Delusions: not overt reports. Insight/judgment: impaired x 2. Diagnostics Vital Signs (24Hr): Vital Signs - 24 hr 01/09/24 20:00 01/10/24 08:00 Temperature 97.5 F 97.7 F Pulse Rate 89 77 Respiratory Rate 17 18 Blood Pressure 90/67 86/62 L Pulse Oximetry 94 94 Oxygen Delivery Method Room Air Room Air BMI result Body Mass Index 17.5 Labs 12/21/23 16:53 12/21/23 16:53 Imaging Radiology Impressions: ITS Impressions Chest X-Ray 11/14/23 15:16 IMPRESSION: No evidence of acute disease. No pulmonary mass, pneumonia or pleural effusion. Chest CT 12/21/23 14:32 IMPRESSION: 1. No focal infiltrate is seen. 2. A 4 mm noncalcified subpleural nodule is seen within the posterior segment of the right upper lobe. According to the UPDATED 2017 Fleischner Society recommendations, the advised follow-up imaging for solid nodules < 6 mm is: LOW RISK PATIENT: No routine follow-up. HIGH RISK PATIENT: Optional CT at 12 months. 3. There is no thoracic lymphadenopathy or pleural effusion. 4. There is a marked kyphoscoliosis. No acute or aggressive osseous lesion is seen. 5. There is mild cholelithiasis. Fleischner guidelines were followed. Medications Medications Current Medications Acetaminophen (Acetaminophen 325 Mg Tablet) 650 mg PO Q6H PRN PRN Reason: Headache/Pain Mild Scale (1-3) Last Admin: 01/05/24 21:11 Dose: 650 mg Al Hydroxide/Mg Hydroxide (Magnesium Hydrox/Alum Hydrox 30 Ml Oral.Susp) 30 ml PO Q6H PRN PRN Reason: Heartburn/Nausea Last Admin: 10/31/23 23:58 Dose: 30 ml Cyanocobalamin (Cyanocobalamin (Vitamin B-12) 1,000 Mcg/Ml Vial) 1,000 mcg IM Q7D [facility] Stop: 01/11/24 15:01 Last Admin: 01/04/24 16:40 Dose: Not Given Famotidine (Famotidine 20 Mg Tablet) 20 mg PO DAILY [facility] Last Admin: 01/10/24 09:08 Dose: 20 mg Loperamide HCl (Loperamide Hcl 2 Mg Capsule) 2 mg PO Q4H PRN PRN Reason: loose stools Last Admin: 01/06/24 23:45 Dose: 2 mg Magnesium Hydroxide (Milk Of Magnesia 30 Ml Oral.Susp) 30 ml PO DAILY PRN PRN Reason: Constipation Memantine (Memantine Hcl 5 Mg Tablet) 5 mg PO DAILY [facility] Last Admin: 01/10/24 09:08 Dose: 5 mg Mirtazapine (Mirtazapine 15 Mg Tablet) 15 mg PO BEDTIME [facility] Last Admin: 01/09/24 20:37 Dose: 15 mg Ondansetron HCl (Ondansetron Odt 4 Mg Tab.Rapdis) 4 mg TRANSLINGU Q8H PRN PRN Reason: Nausea and Vomiting Last Admin: 12/02/23 11:31 Dose: 4 mg Risperidone (Risperidone 1 Mg Tablet) 1 mg PO BEDTIME [facility] Last Admin: 01/09/24 20:37 Dose: 1 mg Senna (Sennosides 8.6 Mg Tablet) 8.6 mg PO BEDTIME [facility] Last Admin: 01/09/24 20:36 Dose: 8.6 mg Trazodone HCl (Trazodone Hcl 50 Mg Tablet) 50 mg PO BEDTIME PRN PRN Reason: Insomnia Last Admin: 01/09/24 20:37 Dose: 50 mg Allergies Allergies Allergy/AdvReac Type Severity Reaction Status Date / Time omeprazole Allergy Unknown Verified 10/30/23 00:09 Assessment & Plan Assessment & Plan (1) Schizophrenia: Status: Acute Code(s): F20.9 - Schizophrenia, unspecified Plan The patient is a 63-year-old male with a past history of schizophrenia who had been in and out of several facilities in the last year with severe hypoactive behavior, catatonic like symptoms and chronic noncompliance who needed to go for Section 7 and 8 for ECT. Even though that he had been treated with antipsychotics he remains still internally preoccupied. Plan 01/02 continue tx. added remeron 15mg po qhs. continue risperidone 1mg po qhs. 01/03 may consider increasing risperidone- but trying to keep balance between not worsening symptoms of apathy and abulia. He has responded positively to ECT, even if partially. 01/04 continue tx. 01/06 continue tx. 01/07: continue current mgmt. 01/08: no change. 01/09 continue tx. Reason for continued inpatient stay Substantial Risk for: inability to function Time Spent With Patient Time: Total time managing care of this patient today ____ minutes.
[2024-01-10 20:00] VITALS: BP 90/69; PULSE 66; RESP 18; TEMP 36; O2SAT 92
[2024-01-10] MEDS: Sennosides 8.6 MG TABLET PO (20:31)
[2024-01-10] MEDS: Mirtazapine 15 MG TABLET PO (20:31)
[2024-01-10] MEDS: traZODone HCL 50 MG TABLET PO (20:31)
[2024-01-10] MEDS: risperiDONE 1 MG TABLET PO (20:31)
[2024-01-11 07:48] VITALS: BP 108/60; PULSE 82; RESP 16; TEMP 36.2; O2SAT 97
[2024-01-11] MEDS: Famotidine 20 MG TABLET PO (08:29)
[2024-01-11] MEDS: Memantine HCl 5 MG TABLET PO (08:29)
--- NOTE | 2024-01-11 15:36 | PC.NURSE ---
Patient refused B12 injection stating, I just don't like shots.
--- NOTE | 2024-01-11 16:27 | HO.PSYCHPN ---
Subjective Subjective Date of Service: 01/11/24 Reason For Visit: Schizoaffective disorder, unspecified type Subjective Notes: Conditional Voluntary Interim History: The nursing staff reported the patient had been mostly isolative in his room out only for meals he slept 8 hours. On interview the patient denies new symptoms, we are going to increase his Risperdal to 2 mg p.o. q.h.s.. Mental Status Exam Mental Status Exam Patient Appearance: Appropriate Patient Orientation: Person and Situation Level of Consciousness: Awake and Appropriate Patient Behavior: Guarded and Passive Mood Description: Withdrawn Affect Description: Constricted Patient Cognition Impaired: Yes Ability to Follow Directions: Good Speech Pattern: Clear Hallucinations: None Delusions: Paranoid Ideation and Ideas of Reference Thought Process: Distracted and Slowed Thinking Thought Content: positive for [place] Judgement: Poor Diagnostics Vital Signs (24Hr): Vital Signs - 24 hr 01/10/24 20:00 01/11/24 07:48 Temperature 96.8 F 97.1 F Pulse Rate 66 82 Respiratory Rate 18 16 Blood Pressure 90/69 108/60 Pulse Oximetry 92 97 Oxygen Delivery Method Room Air Room Air BMI result Body Mass Index 17.5 Labs 12/21/23 16:53 12/21/23 16:53 Imaging Radiology Impressions: ITS Impressions Chest X-Ray 11/14/23 15:16 IMPRESSION: No evidence of acute disease. No pulmonary mass, pneumonia or pleural effusion. Chest CT 12/21/23 14:32 IMPRESSION: 1. No focal infiltrate is seen. 2. A 4 mm noncalcified subpleural nodule is seen within the posterior segment of the right upper lobe. According to the UPDATED 2017 Fleischner Society recommendations, the advised follow-up imaging for solid nodules < 6 mm is: LOW RISK PATIENT: No routine follow-up. HIGH RISK PATIENT: Optional CT at 12 months. 3. There is no thoracic lymphadenopathy or pleural effusion. 4. There is a marked kyphoscoliosis. No acute or aggressive osseous lesion is seen. 5. There is mild cholelithiasis. Fleischner guidelines were followed. Medications Medications Current Medications Acetaminophen (Acetaminophen 325 Mg Tablet) 650 mg PO Q6H PRN PRN Reason: Headache/Pain Mild Scale (1-3) Last Admin: 01/05/24 21:11 Dose: 650 mg Al Hydroxide/Mg Hydroxide (Magnesium Hydrox/Alum Hydrox 30 Ml Oral.Susp) 30 ml PO Q6H PRN PRN Reason: Heartburn/Nausea Last Admin: 10/31/23 23:58 Dose: 30 ml Famotidine (Famotidine 20 Mg Tablet) 20 mg PO DAILY [facility] Last Admin: 01/11/24 08:29 Dose: 20 mg Loperamide HCl (Loperamide Hcl 2 Mg Capsule) 2 mg PO Q4H PRN PRN Reason: loose stools Last Admin: 01/06/24 23:45 Dose: 2 mg Magnesium Hydroxide (Milk Of Magnesia 30 Ml Oral.Susp) 30 ml PO DAILY PRN PRN Reason: Constipation Memantine (Memantine Hcl 5 Mg Tablet) 5 mg PO DAILY [facility] Last Admin: 01/11/24 08:29 Dose: 5 mg Mirtazapine (Mirtazapine 15 Mg Tablet) 15 mg PO BEDTIME [facility] Last Admin: 01/10/24 20:31 Dose: 15 mg Ondansetron HCl (Ondansetron Odt 4 Mg Tab.Rapdis) 4 mg TRANSLINGU Q8H PRN PRN Reason: Nausea and Vomiting Last Admin: 12/02/23 11:31 Dose: 4 mg Risperidone (Risperidone 2 Mg Tablet) 2 mg PO BEDTIME [facility] Senna (Sennosides 8.6 Mg Tablet) 8.6 mg PO BEDTIME [facility] Last Admin: 01/10/24 20:31 Dose: 8.6 mg Trazodone HCl (Trazodone Hcl 50 Mg Tablet) 50 mg PO BEDTIME PRN PRN Reason: Insomnia Last Admin: 01/10/24 20:31 Dose: 50 mg Allergies Allergies Allergy/AdvReac Type Severity Reaction Status Date / Time omeprazole Allergy Unknown Verified 10/30/23 00:09 Assessment & Plan Assessment & Plan (1) Schizophrenia: Status: Acute Code(s): F20.9 - Schizophrenia, unspecified Plan The patient is a 63-year-old male with a past history of schizophrenia who had been in and out of several facilities in the last year with severe hypoactive behavior, catatonic like symptoms and chronic noncompliance who needed to go for Section 7 and 8 for ECT. Even though that he had been treated with antipsychotics he remains still internally preoccupied. Plan 1. ECT has been held since the patient was over-sedated of the procedure even though he had a partial response. 2. Risperdal increased up to 2 mg p.o. q.h.s. on January 10. 3. Continue with same medications. Reason for continued inpatient stay Substantial Risk for: inability to function, rapid decompensation and med/psych decompensation Time Spent With Patient Time: Total time managing care of this patient today __20__ minutes.
[2024-01-11 20:00] VITALS: BP 90/65; PULSE 86; RESP 16; TEMP 37.1; O2SAT 95
[2024-01-11] MEDS: Sennosides 8.6 MG TABLET PO (20:44)
[2024-01-11] MEDS: risperiDONE 2 MG TABLET PO (20:45)
[2024-01-11] MEDS: traZODone HCL 50 MG TABLET PO (20:45)
[2024-01-11] MEDS: Mirtazapine 15 MG TABLET PO (20:45)
[2024-01-12 08:00] VITALS: BP 88/62; PULSE 72; RESP 18; TEMP 37; O2SAT 95
[2024-01-12] MEDS: Famotidine 20 MG TABLET PO (08:44)
[2024-01-12] MEDS: Memantine HCl 5 MG TABLET PO (08:44)
--- NOTE | 2024-01-12 13:26 | P.PNPSI_ITS ---
Subjective Subjective Date of Service: 01/12/24 Reason For Visit: Schizoaffective disorder, unspecified type Subjective Notes: Conditional Voluntary Interim History: The nursing staff reported the patient had been more visible in the unit drinking ensure. On interview the patient denies new symptoms looks internally preoccupied. No evidence of over-sedation. Mental Status Exam Mental Status Exam Patient Appearance: Unkempt Patient Orientation: Person Level of Consciousness: Awake Patient Behavior: Guarded and Passive Mood Description: Withdrawn Affect Description: Blunted Patient Cognition Impaired: Yes Ability to Follow Directions: Good Speech Pattern: Clear Hallucinations: None Delusions: Ideas of Reference Thought Process: Distracted and Slowed Thinking Thought Content: positive for [place] and positive for Poverty of Content Judgement: Poor Diagnostics Vital Signs (24Hr): Vital Signs - 24 hr 01/11/24 20:00 01/12/24 08:00 Temperature 98.8 F 98.6 F Pulse Rate 86 72 Respiratory Rate 16 18 Blood Pressure 90/65 88/62 L Pulse Oximetry 95 95 Oxygen Delivery Method Room Air Room Air BMI result Body Mass Index 17.5 Labs 12/21/23 16:53 12/21/23 16:53 Imaging Radiology Impressions: ITS Impressions Chest X-Ray 11/14/23 15:16 IMPRESSION: No evidence of acute disease. No pulmonary mass, pneumonia or pleural effusion. Chest CT 12/21/23 14:32 IMPRESSION: 1. No focal infiltrate is seen. 2. A 4 mm noncalcified subpleural nodule is seen within the posterior segment of the right upper lobe. According to the UPDATED 2017 Fleischner Society recommendations, the advised follow-up imaging for solid nodules < 6 mm is: LOW RISK PATIENT: No routine follow-up. HIGH RISK PATIENT: Optional CT at 12 months. 3. There is no thoracic lymphadenopathy or pleural effusion. 4. There is a marked kyphoscoliosis. No acute or aggressive osseous lesion is seen. 5. There is mild cholelithiasis. Fleischner guidelines were followed. Medications Medications Current Medications Acetaminophen (Acetaminophen 325 Mg Tablet) 650 mg PO Q6H PRN PRN Reason: Headache/Pain Mild Scale (1-3) Last Admin: 01/05/24 21:11 Dose: 650 mg Al Hydroxide/Mg Hydroxide (Magnesium Hydrox/Alum Hydrox 30 Ml Oral.Susp) 30 ml PO Q6H PRN PRN Reason: Heartburn/Nausea Last Admin: 10/31/23 23:58 Dose: 30 ml Famotidine (Famotidine 20 Mg Tablet) 20 mg PO DAILY [facility] Last Admin: 01/12/24 08:44 Dose: 20 mg Loperamide HCl (Loperamide Hcl 2 Mg Capsule) 2 mg PO Q4H PRN PRN Reason: loose stools Last Admin: 01/06/24 23:45 Dose: 2 mg Magnesium Hydroxide (Milk Of Magnesia 30 Ml Oral.Susp) 30 ml PO DAILY PRN PRN Reason: Constipation Memantine (Memantine Hcl 5 Mg Tablet) 5 mg PO DAILY [facility] Last Admin: 01/12/24 08:44 Dose: 5 mg Mirtazapine (Mirtazapine 15 Mg Tablet) 15 mg PO BEDTIME [facility] Last Admin: 01/11/24 20:45 Dose: 15 mg Ondansetron HCl (Ondansetron Odt 4 Mg Tab.Rapdis) 4 mg TRANSLINGU Q8H PRN PRN Reason: Nausea and Vomiting Last Admin: 12/02/23 11:31 Dose: 4 mg Risperidone (Risperidone 2 Mg Tablet) 2 mg PO BEDTIME [facility] Last Admin: 01/11/24 20:45 Dose: 2 mg Senna (Sennosides 8.6 Mg Tablet) 8.6 mg PO BEDTIME [facility] Last Admin: 01/11/24 20:44 Dose: 8.6 mg Trazodone HCl (Trazodone Hcl 50 Mg Tablet) 50 mg PO BEDTIME PRN PRN Reason: Insomnia Last Admin: 01/11/24 20:45 Dose: 50 mg Allergies Allergies Allergy/AdvReac Type Severity Reaction Status Date / Time omeprazole Allergy Unknown Verified 10/30/23 00:09 Assessment & Plan Assessment & Plan (1) Schizophrenia: Status: Acute Code(s): F20.9 - Schizophrenia, unspecified Plan The patient is a 63-year-old male with a past history of schizophrenia who had been in and out of several facilities in the last year with severe hypoactive behavior, catatonic like symptoms and chronic noncompliance who needed to go for Section 7 and 8 for ECT. Even though that he had been treated with antipsychotics he remains still internally preoccupied. Plan 1. ECT has been held since the patient was over-sedated of the procedure even though he had a partial response. 2. Risperdal increased up to 2 mg p.o. q.h.s. on January 10. 3. Continue with same medications. Reason for continued inpatient stay Substantial Risk for: inability to function, rapid decompensation and med/psych decompensation Time Spent With Patient Time: Total time managing care of this patient today __20__ minutes.
--- NOTE | 2024-01-12 14:11 | MHC.CLN ---
F/U DIET=REGULAR. ENSURE TID PROVIDES 1050 KCALS, 60 G PROTEIN. PATIENT ACCEPTS SUPPLEMENT. ENCOURAGE ADDITIONAL SNACKS AND SUPPLEMENTS FROM UNIT KITCHEN. MOSTLY TAKES ENSURE AT MEALS. NO SIGNIFICANT WEIGHT CHANGE SINCE 11/03. CONTINUE CURRENT DIET, SUPPLEMENTS AND ENCOURAGE INTAKE ABLE. RD TO FOLLOW WEEKLY.
[2024-01-12 20:00] VITALS: BP 89/59; PULSE 78; RESP 18; TEMP 37.3; O2SAT 96
[2024-01-12] MEDS: traZODone HCL 50 MG TABLET PO (20:43)
[2024-01-12] MEDS: Sennosides 8.6 MG TABLET PO (20:43)
[2024-01-12] MEDS: risperiDONE 2 MG TABLET PO (20:43)
[2024-01-12] MEDS: Mirtazapine 15 MG TABLET PO (20:43)
[2024-01-13 07:00] VITALS: BMI 17.5
[2024-01-13 08:00] VITALS: BP 99/64; PULSE 110; RESP 16; TEMP 36.8; O2SAT 95
[2024-01-13] MEDS: Famotidine 20 MG TABLET PO (08:31)
[2024-01-13] MEDS: Loperamide HCl 2 MG CAPSULE PO ×2 (08:31→15:22)
[2024-01-13] MEDS: Memantine HCl 5 MG TABLET PO (08:32)
--- NOTE | 2024-01-13 13:54 | HO.PSYCHPN ---
Subjective Subjective Date of Service: 01/13/24 Reason For Visit: Schizoaffective disorder, unspecified type Subjective Notes: Section 7 and Section 8 Interim History: The nursing staff reported the patient had being in the common areas only for meals, overall no changes in his mental status. On interview the patient denies new symptoms no over-sedation with increase of Risperdal. Mental Status Exam Mental Status Exam Patient Appearance: Appropriate Patient Orientation: Person and Situation Level of Consciousness: Awake and Appropriate Patient Behavior: Guarded and Passive Mood Description: Withdrawn Affect Description: Constricted Patient Cognition Impaired: Yes Ability to Follow Directions: Good Speech Pattern: Clear Hallucinations: None Delusions: Paranoid Ideation Thought Process: Distracted and Slowed Thinking Thought Content: positive for Poverty of Content Judgement: Fair Diagnostics Vital Signs (24Hr): Vital Signs - 24 hr 01/12/24 20:00 01/13/24 08:00 Temperature 99.2 F 98.2 F Pulse Rate 78 110 H Respiratory Rate 18 16 Blood Pressure 89/59 L 99/64 Pulse Oximetry 96 95 Oxygen Delivery Method Room Air Room Air BMI result Body Mass Index 17.5 Labs 12/21/23 16:53 12/21/23 16:53 Imaging Radiology Impressions: ITS Impressions Chest X-Ray 11/14/23 15:16 IMPRESSION: No evidence of acute disease. No pulmonary mass, pneumonia or pleural effusion. Chest CT 12/21/23 14:32 IMPRESSION: 1. No focal infiltrate is seen. 2. A 4 mm noncalcified subpleural nodule is seen within the posterior segment of the right upper lobe. According to the UPDATED 2017 Fleischner Society recommendations, the advised follow-up imaging for solid nodules < 6 mm is: LOW RISK PATIENT: No routine follow-up. HIGH RISK PATIENT: Optional CT at 12 months. 3. There is no thoracic lymphadenopathy or pleural effusion. 4. There is a marked kyphoscoliosis. No acute or aggressive osseous lesion is seen. 5. There is mild cholelithiasis. Fleischner guidelines were followed. Medications Medications Current Medications Acetaminophen (Acetaminophen 325 Mg Tablet) 650 mg PO Q6H PRN PRN Reason: Headache/Pain Mild Scale (1-3) Last Admin: 01/05/24 21:11 Dose: 650 mg Al Hydroxide/Mg Hydroxide (Magnesium Hydrox/Alum Hydrox 30 Ml Oral.Susp) 30 ml PO Q6H PRN PRN Reason: Heartburn/Nausea Last Admin: 10/31/23 23:58 Dose: 30 ml Famotidine (Famotidine 20 Mg Tablet) 20 mg PO DAILY [facility] Last Admin: 01/13/24 08:31 Dose: 20 mg Loperamide HCl (Loperamide Hcl 2 Mg Capsule) 2 mg PO Q4H PRN PRN Reason: loose stools Last Admin: 01/13/24 08:31 Dose: 2 mg Magnesium Hydroxide (Milk Of Magnesia 30 Ml Oral.Susp) 30 ml PO DAILY PRN PRN Reason: Constipation Memantine (Memantine Hcl 5 Mg Tablet) 5 mg PO DAILY [facility] Last Admin: 01/13/24 08:32 Dose: 5 mg Mirtazapine (Mirtazapine 15 Mg Tablet) 15 mg PO BEDTIME [facility] Last Admin: 01/12/24 20:43 Dose: 15 mg Ondansetron HCl (Ondansetron Odt 4 Mg Tab.Rapdis) 4 mg TRANSLINGU Q8H PRN PRN Reason: Nausea and Vomiting Last Admin: 12/02/23 11:31 Dose: 4 mg Risperidone (Risperidone 2 Mg Tablet) 2 mg PO BEDTIME [facility] Last Admin: 01/12/24 20:43 Dose: 2 mg Senna (Sennosides 8.6 Mg Tablet) 8.6 mg PO BEDTIME [facility] Last Admin: 01/12/24 20:43 Dose: 8.6 mg Trazodone HCl (Trazodone Hcl 50 Mg Tablet) 50 mg PO BEDTIME PRN PRN Reason: Insomnia Last Admin: 01/12/24 20:43 Dose: 50 mg Allergies Allergies Allergy/AdvReac Type Severity Reaction Status Date / Time omeprazole Allergy Unknown Verified 10/30/23 00:09 Assessment & Plan Assessment & Plan (1) Schizophrenia: Status: Acute Code(s): F20.9 - Schizophrenia, unspecified Plan The patient is a 63-year-old male with a past history of schizophrenia who had been in and out of several facilities in the last year with severe hypoactive behavior, catatonic like symptoms and chronic noncompliance who needed to go for Section 7 and 8 for ECT. Even though that he had been treated with antipsychotics he remains still internally preoccupied. Plan 1. ECT has been held since the patient was over-sedated of the procedure even though he had a partial response. 2. Risperdal increased up to 2 mg p.o. q.h.s. on January 10. 3. Continue with same medications. Reason for continued inpatient stay Substantial Risk for: inability to function, rapid decompensation and med/psych decompensation Time Spent With Patient Time: Total time managing care of this patient today __20__ minutes.
[2024-01-13 20:00] VITALS: BP 94/68; PULSE 88; RESP 18; TEMP 36.6; O2SAT 96
[2024-01-13] MEDS: Mirtazapine 15 MG TABLET PO (20:39)
[2024-01-13] MEDS: risperiDONE 2 MG TABLET PO (20:39)
[2024-01-13] MEDS: traZODone HCL 50 MG TABLET PO (20:39)
[2024-01-14 08:00] VITALS: BP 94/53; PULSE 71; RESP 16; TEMP 36.3; O2SAT 94
[2024-01-14] MEDS: Famotidine 20 MG TABLET PO (09:46)
[2024-01-14] MEDS: Memantine HCl 5 MG TABLET PO (09:46)
--- NOTE | 2024-01-14 14:50 | P.PNPSI_ITS ---
Subjective Subjective Date of Service: 01/14/24 Reason For Visit: Schizoaffective disorder, unspecified type Subjective Notes: Section 7 and Section 8 Interim History: The nursing staff reported the patient had been slightly more visible in the unit. More engageable. He slept 7 hours. The social media intern reported that the guardianship paperwork is in process. On interview the patient denies new symptoms, it seems that he is at baseline at this point. Mental Status Exam Mental Status Exam Patient Appearance: Appropriate Patient Orientation: Person and Situation Level of Consciousness: Awake and Appropriate Patient Behavior: Guarded and Passive Mood Description: Withdrawn Affect Description: Constricted Patient Cognition Impaired: Yes Ability to Follow Directions: Good Speech Pattern: Clear Hallucinations: None Delusions: Not Present Thought Process: Distracted and Slowed Thinking Thought Content: positive for Thought Blocking Judgement: Fair Diagnostics Vital Signs (24Hr): Vital Signs - 24 hr 01/13/24 20:00 01/14/24 08:00 Temperature 97.8 F 97.3 F Pulse Rate 88 71 Respiratory Rate 18 16 Blood Pressure 94/68 94/53 L Pulse Oximetry 96 94 Oxygen Delivery Method Room Air Room Air BMI result Body Mass Index 17.5 Labs 12/21/23 16:53 12/21/23 16:53 Imaging Radiology Impressions: ITS Impressions Chest X-Ray 11/14/23 15:16 IMPRESSION: No evidence of acute disease. No pulmonary mass, pneumonia or pleural effusion. Chest CT 12/21/23 14:32 IMPRESSION: 1. No focal infiltrate is seen. 2. A 4 mm noncalcified subpleural nodule is seen within the posterior segment of the right upper lobe. According to the UPDATED 2017 Fleischner Society recommendations, the advised follow-up imaging for solid nodules < 6 mm is: LOW RISK PATIENT: No routine follow-up. HIGH RISK PATIENT: Optional CT at 12 months. 3. There is no thoracic lymphadenopathy or pleural effusion. 4. There is a marked kyphoscoliosis. No acute or aggressive osseous lesion is seen. 5. There is mild cholelithiasis. Fleischner guidelines were followed. Medications Medications Current Medications Acetaminophen (Acetaminophen 325 Mg Tablet) 650 mg PO Q6H PRN PRN Reason: Headache/Pain Mild Scale (1-3) Last Admin: 01/05/24 21:11 Dose: 650 mg Al Hydroxide/Mg Hydroxide (Magnesium Hydrox/Alum Hydrox 30 Ml Oral.Susp) 30 ml PO Q6H PRN PRN Reason: Heartburn/Nausea Last Admin: 10/31/23 23:58 Dose: 30 ml Famotidine (Famotidine 20 Mg Tablet) 20 mg PO DAILY [facility] Last Admin: 01/14/24 09:46 Dose: 20 mg Loperamide HCl (Loperamide Hcl 2 Mg Capsule) 2 mg PO Q4H PRN PRN Reason: loose stools Last Admin: 01/13/24 15:22 Dose: 2 mg Magnesium Hydroxide (Milk Of Magnesia 30 Ml Oral.Susp) 30 ml PO DAILY PRN PRN Reason: Constipation Memantine (Memantine Hcl 5 Mg Tablet) 5 mg PO DAILY [facility] Last Admin: 01/14/24 09:46 Dose: 5 mg Mirtazapine (Mirtazapine 15 Mg Tablet) 15 mg PO BEDTIME [facility] Last Admin: 01/13/24 20:39 Dose: 15 mg Ondansetron HCl (Ondansetron Odt 4 Mg Tab.Rapdis) 4 mg TRANSLINGU Q8H PRN PRN Reason: Nausea and Vomiting Last Admin: 12/02/23 11:31 Dose: 4 mg Risperidone (Risperidone 2 Mg Tablet) 2 mg PO BEDTIME [facility] Last Admin: 01/13/24 20:39 Dose: 2 mg Senna (Sennosides 8.6 Mg Tablet) 8.6 mg PO BEDTIME [facility] Last Admin: 01/13/24 20:39 Dose: Not Given Trazodone HCl (Trazodone Hcl 50 Mg Tablet) 50 mg PO BEDTIME PRN PRN Reason: Insomnia Last Admin: 01/13/24 20:39 Dose: 50 mg Allergies Allergies Allergy/AdvReac Type Severity Reaction Status Date / Time omeprazole Allergy Unknown Verified 10/30/23 00:09 Assessment & Plan Assessment & Plan (1) Schizophrenia: Status: Acute Code(s): F20.9 - Schizophrenia, unspecified Plan The patient is a 63-year-old male with a past history of schizophrenia who had been in and out of several facilities in the last year with severe hypoactive behavior, catatonic like symptoms and chronic noncompliance who needed to go for Section 7 and 8 for ECT. Even though that he had been treated with antipsychotics he remains still internally preoccupied. Plan 1. ECT has been held since the patient was over-sedated of the procedure even though he had a partial response. 2. Risperdal increased up to 2 mg p.o. q.h.s. on January 10. 3. Continue with same medications. Reason for continued inpatient stay Substantial Risk for: inability to function, rapid decompensation and med/psych decompensation Time Spent With Patient Time: Total time managing care of this patient today __20__ minutes.
[2024-01-14 20:00] VITALS: BP 95/63; PULSE 80; RESP 16; TEMP 36.9; O2SAT 94
[2024-01-14] MEDS: traZODone HCL 50 MG TABLET PO (21:05)
[2024-01-14] MEDS: Mirtazapine 15 MG TABLET PO (21:06)
[2024-01-14] MEDS: risperiDONE 2 MG TABLET PO (21:06)
[2024-01-14] MEDS: Sennosides 8.6 MG TABLET PO (21:06)
[2024-01-15 08:00] VITALS: BP 101/59; PULSE 84; RESP 16; TEMP 36.7; O2SAT 96
[2024-01-15] MEDS: Memantine HCl 5 MG TABLET PO (08:39)
[2024-01-15] MEDS: Famotidine 20 MG TABLET PO (08:39)
[2024-01-15 20:00] VITALS: BP 103/62; PULSE 103; RESP 16; TEMP 37.2; O2SAT 95
[2024-01-15] MEDS: risperiDONE 2 MG TABLET PO (20:45)
[2024-01-15] MEDS: traZODone HCL 50 MG TABLET PO (20:45)
[2024-01-15] MEDS: Sennosides 8.6 MG TABLET PO (20:45)
[2024-01-15] MEDS: Mirtazapine 15 MG TABLET PO (20:45)
--- NOTE | 2024-01-16 00:05 | HO.PSYCHPN ---
Subjective Subjective Date of Service: 01/15/24 Reason For Visit: Schizoaffective disorder, unspecified type Subjective Notes: Section 7 and Section 8 Interim History: The nursing staff reported the patient had been slightly more visible in the unit. More engageable. He slept 7 hours. Patient plan to return to [facility] detention when seen he was isolative withdrawn reportedly a motivational has at times been somewhat more social in the milieu Mental Status Exam Mental Status Exam Patient Appearance: Appropriate Patient Orientation: Person and Situation Level of Consciousness: Awake and Appropriate Patient Behavior: Guarded and Passive Mood Description: Withdrawn Affect Description: Constricted Patient Cognition Impaired: Yes Ability to Follow Directions: Good Speech Pattern: Clear Hallucinations: None Delusions: Not Present Thought Process: Distracted and Slowed Thinking Thought Content: positive for Thought Blocking Judgement: Fair Diagnostics Vital Signs (24Hr): Vital Signs - 24 hr 01/15/24 08:00 01/15/24 20:00 Temperature 98.1 F 98.9 F Pulse Rate 84 103 H Respiratory Rate 16 16 Blood Pressure 101/59 L 103/62 Pulse Oximetry 96 95 Oxygen Delivery Method Room Air Room Air BMI result Body Mass Index 17.5 Labs 12/21/23 16:53 12/21/23 16:53 Imaging Radiology Impressions: ITS Impressions Chest X-Ray 11/14/23 15:16 IMPRESSION: No evidence of acute disease. No pulmonary mass, pneumonia or pleural effusion. Chest CT 12/21/23 14:32 IMPRESSION: 1. No focal infiltrate is seen. 2. A 4 mm noncalcified subpleural nodule is seen within the posterior segment of the right upper lobe. According to the UPDATED 2017 Fleischner Society recommendations, the advised follow-up imaging for solid nodules < 6 mm is: LOW RISK PATIENT: No routine follow-up. HIGH RISK PATIENT: Optional CT at 12 months. 3. There is no thoracic lymphadenopathy or pleural effusion. 4. There is a marked kyphoscoliosis. No acute or aggressive osseous lesion is seen. 5. There is mild cholelithiasis. Fleischner guidelines were followed. Medications Medications Current Medications Acetaminophen (Acetaminophen 325 Mg Tablet) 650 mg PO Q6H PRN PRN Reason: Headache/Pain Mild Scale (1-3) Last Admin: 01/05/24 21:11 Dose: 650 mg Al Hydroxide/Mg Hydroxide (Magnesium Hydrox/Alum Hydrox 30 Ml Oral.Susp) 30 ml PO Q6H PRN PRN Reason: Heartburn/Nausea Last Admin: 10/31/23 23:58 Dose: 30 ml Famotidine (Famotidine 20 Mg Tablet) 20 mg PO DAILY [facility] Last Admin: 01/15/24 08:39 Dose: 20 mg Loperamide HCl (Loperamide Hcl 2 Mg Capsule) 2 mg PO Q4H PRN PRN Reason: loose stools Last Admin: 01/13/24 15:22 Dose: 2 mg Magnesium Hydroxide (Milk Of Magnesia 30 Ml Oral.Susp) 30 ml PO DAILY PRN PRN Reason: Constipation Memantine (Memantine Hcl 5 Mg Tablet) 5 mg PO DAILY [facility] Last Admin: 01/15/24 08:39 Dose: 5 mg Mirtazapine (Mirtazapine 15 Mg Tablet) 15 mg PO BEDTIME [facility] Last Admin: 01/15/24 20:45 Dose: 15 mg Ondansetron HCl (Ondansetron Odt 4 Mg Tab.Rapdis) 4 mg TRANSLINGU Q8H PRN PRN Reason: Nausea and Vomiting Last Admin: 12/02/23 11:31 Dose: 4 mg Risperidone (Risperidone 2 Mg Tablet) 2 mg PO BEDTIME [facility] Last Admin: 01/15/24 20:45 Dose: 2 mg Senna (Sennosides 8.6 Mg Tablet) 8.6 mg PO BEDTIME [facility] Last Admin: 01/15/24 20:45 Dose: 8.6 mg Trazodone HCl (Trazodone Hcl 50 Mg Tablet) 50 mg PO BEDTIME PRN PRN Reason: Insomnia Last Admin: 01/15/24 20:45 Dose: 50 mg Allergies Allergies Allergy/AdvReac Type Severity Reaction Status Date / Time omeprazole Allergy Unknown Verified 10/30/23 00:09 Assessment & Plan Assessment & Plan (1) Schizophrenia: Status: Acute Code(s): F20.9 - Schizophrenia, unspecified Plan The patient is a 63-year-old male with a past history of schizophrenia who had been in and out of several facilities in the last year with severe hypoactive behavior, catatonic like symptoms and chronic noncompliance who needed to go for Section 7 and 8 for ECT. Even though that he had been treated with antipsychotics he remains still internally preoccupied. Plan 1. ECT has been held since the patient was over-sedated of the procedure even though he had a partial response. 2. Risperdal increased up to 2 mg p.o. q.h.s. on January 10. 3. Continue with same medications. 01/16/2024 Increase Namenda 5 mg twice a day Reason for continued inpatient stay Substantial Risk for: inability to function, rapid decompensation and med/psych decompensation Time Spent With Patient Time: Total time managing care of this patient today ____ minutes.
[2024-01-16 07:55] VITALS: BP 94/61; PULSE 76; RESP 16; TEMP 36.4; O2SAT 95
[2024-01-16] MEDS: Memantine HCl 5 MG TABLET PO ×2 (08:24→21:05)
[2024-01-16] MEDS: Famotidine 20 MG TABLET PO (08:24)
--- NOTE | 2024-01-16 13:04 | HO.PSYCHPN ---
Subjective Subjective Date of Service: 01/16/24 Reason For Visit: Schizoaffective disorder, unspecified type Interim History: Patient mostly isolated withdrawn limited food intake Namenda increased consider restarting right unilateral Medication Compliance: Yes Mental Status Exam Mental Status Exam Patient Appearance: Appropriate Patient Orientation: Person and Situation Level of Consciousness: Awake and Appropriate Patient Behavior: Guarded and Passive Mood Description: Withdrawn Affect Description: Constricted Patient Cognition Impaired: Yes Ability to Follow Directions: Good Speech Pattern: Clear Hallucinations: None Delusions: Not Present Thought Process: Distracted and Slowed Thinking Thought Content: positive for Thought Blocking Judgement: Fair Diagnostics Vital Signs (24Hr): Vital Signs - 24 hr 01/15/24 20:00 01/16/24 07:55 Temperature 98.9 F 97.5 F Pulse Rate 103 H 76 Respiratory Rate 16 16 Blood Pressure 103/62 94/61 Pulse Oximetry 95 95 Oxygen Delivery Method Room Air Room Air BMI result Body Mass Index 17.5 Labs 01/18/24 08:02 01/18/24 08:02 Imaging Radiology Impressions: ITS Impressions Chest X-Ray 11/14/23 15:16 IMPRESSION: No evidence of acute disease. No pulmonary mass, pneumonia or pleural effusion. Chest CT 12/21/23 14:32 IMPRESSION: 1. No focal infiltrate is seen. 2. A 4 mm noncalcified subpleural nodule is seen within the posterior segment of the right upper lobe. According to the UPDATED 2017 Fleischner Society recommendations, the advised follow-up imaging for solid nodules < 6 mm is: LOW RISK PATIENT: No routine follow-up. HIGH RISK PATIENT: Optional CT at 12 months. 3. There is no thoracic lymphadenopathy or pleural effusion. 4. There is a marked kyphoscoliosis. No acute or aggressive osseous lesion is seen. 5. There is mild cholelithiasis. Fleischner guidelines were followed. Medications Medications Current Medications Acetaminophen (Acetaminophen 325 Mg Tablet) 650 mg PO Q6H PRN PRN Reason: Headache/Pain Mild Scale (1-3) Last Admin: 01/05/24 21:11 Dose: 650 mg Al Hydroxide/Mg Hydroxide (Magnesium Hydrox/Alum Hydrox 30 Ml Oral.Susp) 30 ml PO Q6H PRN PRN Reason: Heartburn/Nausea Last Admin: 10/31/23 23:58 Dose: 30 ml Famotidine (Famotidine 20 Mg Tablet) 20 mg PO DAILY [facility] Last Admin: 01/16/24 08:24 Dose: 20 mg Loperamide HCl (Loperamide Hcl 2 Mg Capsule) 2 mg PO Q4H PRN PRN Reason: loose stools Last Admin: 01/13/24 15:22 Dose: 2 mg Magnesium Hydroxide (Milk Of Magnesia 30 Ml Oral.Susp) 30 ml PO DAILY PRN PRN Reason: Constipation Memantine (Memantine Hcl 5 Mg Tablet) 5 mg PO BID [facility] Last Admin: 01/16/24 08:24 Dose: 5 mg Mirtazapine (Mirtazapine 15 Mg Tablet) 15 mg PO BEDTIME [facility] Last Admin: 01/15/24 20:45 Dose: 15 mg Ondansetron HCl (Ondansetron Odt 4 Mg Tab.Rapdis) 4 mg TRANSLINGU Q8H PRN PRN Reason: Nausea and Vomiting Last Admin: 12/02/23 11:31 Dose: 4 mg Risperidone (Risperidone 2 Mg Tablet) 2 mg PO BEDTIME [facility] Last Admin: 01/15/24 20:45 Dose: 2 mg Senna (Sennosides 8.6 Mg Tablet) 8.6 mg PO BEDTIME [facility] Last Admin: 01/15/24 20:45 Dose: 8.6 mg Trazodone HCl (Trazodone Hcl 50 Mg Tablet) 50 mg PO BEDTIME PRN PRN Reason: Insomnia Last Admin: 01/15/24 20:45 Dose: 50 mg Allergies Allergies Allergy/AdvReac Type Severity Reaction Status Date / Time omeprazole Allergy Unknown Verified 10/30/23 00:09 Assessment & Plan Assessment & Plan (1) Schizophrenia: Status: Acute Code(s): F20.9 - Schizophrenia, unspecified (2) Failure to thrive in adult: Status: Acute Code(s): R62.7 - Adult failure to thrive Plan The patient is a 63-year-old male with a past history of schizophrenia who had been in and out of several facilities in the last year with severe hypoactive behavior, catatonic like symptoms and chronic noncompliance who needed to go for Section 7 and 8 for ECT. Even though that he had been treated with antipsychotics he remains still internally preoccupied. Plan 1. ECT has been held since the patient was over-sedated of the procedure even though he had a partial response. 2. Risperdal increased up to 2 mg p.o. q.h.s. on January 10. 3. Continue with same medications. 01/15/2024 Increase Namenda 5 mg twice a day 01/16/2024 Dysphoric withdrawn consider Trintellix 5 mg monitor for agitation history of paranoiaconsider provigil for apathy with dementia Informed Consent: further education needed Reason for continued inpatient stay Substantial Risk for: inability to function, rapid decompensation and med/psych decompensation Time Spent With Patient Time: Total time managing care of this patient today ____ minutes.
[2024-01-16] MEDS: Milk of Magnesia 30 ML ORAL.SUSP PO (16:54)
--- NOTE | 2024-01-16 16:57 | PC.NURSE ---
Addendum entered by Rebekah Hill RN 01/16/24 18:10: Patient states he had small formed BM. Original Note: Patient c/o constipation. Administered MOM. Will monitor for results.
[2024-01-16 20:00] VITALS: BP 105/74; PULSE 104; RESP 16; TEMP 36.3; O2SAT 93
[2024-01-16] MEDS: Sennosides 8.6 MG TABLET PO (21:04)
[2024-01-16] MEDS: Mirtazapine 15 MG TABLET PO (21:05)
[2024-01-16] MEDS: risperiDONE 2 MG TABLET PO (21:05)
[2024-01-17 08:00] VITALS: BP 118/58; PULSE 63; RESP 16; TEMP 36.5; O2SAT 93
[2024-01-17] MEDS: Famotidine 20 MG TABLET PO (09:02)
[2024-01-17] MEDS: Vortioxetine Hydrobromide 5 MG TABLET PO (09:02)
[2024-01-17] MEDS: Memantine HCl 5 MG TABLET PO ×2 (09:03→20:19)
--- NOTE | 2024-01-17 10:35 | HO.PSYCHPN ---
Subjective Subjective Date of Service: 01/17/24 Reason For Visit: Schizoaffective disorder, unspecified type Interim History: Team report poor appetite, preference for Ensure. More visable in the milieu, however continues with a decrease in engagement. Loose stools reported, team question ?impaction. Will get labs, KUB Pt is in bed this a.m. Sedate, some response to questions, reports he his not feeling well, describes GI sx. Medication Compliance: Yes Side effects from medications: Yes (??) Attending Groups: No Review of Systems Acute medical concerns: No loose stools-?constipation Medical Review of Systems: unchanged Review of Systems Review of Systems loose stools pt reports not feeling well- GI sx. Mental Status Exam Mental Status Exam Patient Appearance: Fatigued Patient Orientation: Person Level of Consciousness: Sedated Patient Behavior: Cooperative, Passive and Fatigued Mood Description: Flat Affect Description: Flat Patient Cognition Impaired: Yes Ability to Follow Directions: Fair Speech Pattern: Spontaneous Speech and Soft-Spoken Depressive Symptoms: Changes in Appetite Judgement: Poor Diagnostics Vital Signs (24Hr): Vital Signs - 24 hr 01/16/24 20:00 01/17/24 08:00 Temperature 97.3 F 97.7 F Pulse Rate 104 H 63 Respiratory Rate 16 16 Blood Pressure 105/74 118/58 L Pulse Oximetry 93 93 Oxygen Delivery Method Room Air Room Air BMI result Body Mass Index 17.5 Labs 12/21/23 16:53 12/21/23 16:53 Imaging Radiology Impressions: ITS Impressions Chest X-Ray 11/14/23 15:16 IMPRESSION: No evidence of acute disease. No pulmonary mass, pneumonia or pleural effusion. Chest CT 12/21/23 14:32 IMPRESSION: 1. No focal infiltrate is seen. 2. A 4 mm noncalcified subpleural nodule is seen within the posterior segment of the right upper lobe. According to the UPDATED 2017 Fleischner Society recommendations, the advised follow-up imaging for solid nodules < 6 mm is: LOW RISK PATIENT: No routine follow-up. HIGH RISK PATIENT: Optional CT at 12 months. 3. There is no thoracic lymphadenopathy or pleural effusion. 4. There is a marked kyphoscoliosis. No acute or aggressive osseous lesion is seen. 5. There is mild cholelithiasis. Fleischner guidelines were followed. Medications Medications Current Medications Acetaminophen (Acetaminophen 325 Mg Tablet) 650 mg PO Q6H PRN PRN Reason: Headache/Pain Mild Scale (1-3) Last Admin: 01/05/24 21:11 Dose: 650 mg Al Hydroxide/Mg Hydroxide (Magnesium Hydrox/Alum Hydrox 30 Ml Oral.Susp) 30 ml PO Q6H PRN PRN Reason: Heartburn/Nausea Last Admin: 10/31/23 23:58 Dose: 30 ml Famotidine (Famotidine 20 Mg Tablet) 20 mg PO DAILY [facility] Last Admin: 01/17/24 09:02 Dose: 20 mg Loperamide HCl (Loperamide Hcl 2 Mg Capsule) 2 mg PO Q4H PRN PRN Reason: loose stools Last Admin: 01/13/24 15:22 Dose: 2 mg Magnesium Hydroxide (Milk Of Magnesia 30 Ml Oral.Susp) 30 ml PO DAILY PRN PRN Reason: Constipation Last Admin: 01/16/24 16:54 Dose: 30 ml Memantine (Memantine Hcl 5 Mg Tablet) 5 mg PO BID [facility] Last Admin: 01/17/24 09:03 Dose: 5 mg Mirtazapine (Mirtazapine 7.5 Mg Tablet) 7.5 mg PO BEDTIME [facility] Ondansetron HCl (Ondansetron Odt 4 Mg Tab.Rapdis) 4 mg TRANSLINGU Q8H PRN PRN Reason: Nausea and Vomiting Last Admin: 12/02/23 11:31 Dose: 4 mg Risperidone (Risperidone 2 Mg Tablet) 2 mg PO BEDTIME [facility] Last Admin: 01/16/24 21:05 Dose: 2 mg Senna (Sennosides 8.6 Mg Tablet) 8.6 mg PO BEDTIME [facility] Last Admin: 01/16/24 21:04 Dose: 8.6 mg Trazodone HCl (Trazodone Hcl 50 Mg Tablet) 50 mg PO BEDTIME PRN PRN Reason: Insomnia Last Admin: 01/15/24 20:45 Dose: 50 mg Vortioxetine (Vortioxetine Hydrobromide 5 Mg Tablet) 5 mg PO DAILY [facility] Last Admin: 01/17/24 09:02 Dose: 5 mg Allergies Allergies Allergy/AdvReac Type Severity Reaction Status Date / Time omeprazole Allergy Unknown Verified 10/30/23 00:09 Assessment & Plan Assessment & Plan (1) Schizophrenia: Status: Acute Code(s): F20.9 - Schizophrenia, unspecified (2) Failure to thrive in adult: Status: Acute Code(s): R62.7 - Adult failure to thrive Plan The patient is a 63-year-old male with a past history of schizophrenia who had been in and out of several facilities in the last year with severe hypoactive behavior, catatonic like symptoms and chronic noncompliance who needed to go for Section 7 and 8 for ECT. Even though that he had been treated with antipsychotics he remains still internally preoccupied. Plan 1. ECT has been held since the patient was over-sedated of the procedure even though he had a partial response. 2. Risperdal increased up to 2 mg p.o. q.h.s. on January 10. 3. Continue with same medications. 01/15/2024 Increase Namenda 5 mg twice a day 01/16/2024 Dysphoric withdrawn consider Trintellix 5 mg monitor for agitation history of paranoia 01/17/24 Team report loose stool, ?impaction--KUB, CBCD, CMP Reason for continued inpatient stay Substantial Risk for: med/psych decompensation Time Spent With Patient Time: Total time managing care of this patient today ____ minutes.
[2024-01-17 20:00] VITALS: BP 89/59; PULSE 96; RESP 18; TEMP 36.3; O2SAT 95
[2024-01-17] MEDS: Sennosides 8.6 MG TABLET PO (20:18)
[2024-01-17] MEDS: risperiDONE 2 MG TABLET PO (20:18)
[2024-01-17] MEDS: Mirtazapine 7.5 MG TABLET PO (20:19)
[2024-01-17] MEDS: traZODone HCL 50 MG TABLET PO (20:19)
[2024-01-18 08:15] LABS: MANUAL DIFF FLAG NO
[2024-01-18 08:20] LABS: Basophils Percent Auto 0.2 % (0-2); Eosinophils Percent Auto 0.2 % (0-4); Hematocrit 37.8 % (42.0-52.0); Hemoglobin 13.5 g/dl (14.0-18.0); Imm Gran Abs Auto 0.02 X10*3/uL (0.00-0.03); Imm Gran Pct Auto 0.4 % (0.0-0.4); Lymphocytes Absolute Auto 1.3 X10*3/uL (1.2-4.9); Lymphocytes Percent Auto 23.2 % (20-40); Mean Corpuscular HGB Conc 35.7 g/dl (31.0-36.0); Mean Corpuscular Hemoglobin 35.6 pg (27.0-33.0); Mean Corpuscular Volume 99.7 fL (80.0-98.0); Mean Platelet Volume 11.3 fL (9.4-12.4); Monocytes Absolute Auto 0.6 X10*3/uL (0.1-1.2); Monocytes Percent Auto 11.3 % (2-11); Neutrophils Absolute Auto 3.6 x10*3/uL (2.0-8.3); Neutrophils Percent Auto 64.7 % (45-73); Platelet Count 164 X10*3/uL (160-400); Red Blood Count 3.79 X10*6/uL (4.60-5.80); Red Cell Distribution Width 12.2 % (11.0-16.0); White Blood Count 5.5 X10*3/uL (4.8-10.8)
[2024-01-18 08:31] LABS: Alanine Aminotransferase 21 U/L (0-40); Albumin Level 3.5 g/dL (3.5-5.0); Alkaline Phosphatase 94 U/L (39-117); Anion Gap 13 (12-20); Aspartate Amino Transferase 17 U/L (5-37); Blood Urea Nitrogen 40 mg/dL (9-16); Calcium 9.6 mg/dL (8.4-10.2); Carbon Dioxide 27 mmol/L (22-29); Chloride 104 mmol/L (96-108); Creatinine Clr Calc Pharmacy 49.9; Estimated Glomerular Filt Rate > 60; Glucose Random 85 mg/dL (60-115); Potassium 4.6 mmol/L (3.3-5.1); Sodium 139 mmol/L (135-145); Total Protein 6.5 g/dL (6.5-8.0)
[2024-01-18 08:35] VITALS: BP 94/60; PULSE 88; RESP 16; TEMP 36.6; O2SAT 94
[2024-01-18] MEDS: Vortioxetine Hydrobromide 5 MG TABLET PO (08:36)
[2024-01-18] MEDS: Famotidine 20 MG TABLET PO (08:36)
[2024-01-18] MEDS: Memantine HCl 5 MG TABLET PO ×2 (08:36→20:27)
--- NOTE | 2024-01-18 16:00 | P.PNPSI_ITS ---
Subjective Subjective Date of Service: 01/18/24 Reason For Visit: Schizoaffective disorder, unspecified type Interim History: KUB pending radiology read BUN 40 CBCD values decreased Pt taking Ensure and potato chips Team report he appears brighter and more interactive today. In bed, awake but sedate, states he feels weak. Comments on room-mates health and behavior when meeting with room-mate. Medication Compliance: Yes Side effects from medications: No Attending Groups: No Review of Systems Acute medical concerns: No BUN 40 Medical Review of Systems: unchanged Review of Systems: CBCD values decreasing Review of Systems Review of Systems reports feelings of weakness Mental Status Exam Mental Status Exam Patient Appearance: Fatigued Patient Orientation: Person Level of Consciousness: Sedated Patient Behavior: Cooperative, Passive and Fatigued Mood Description: Flat Affect Description: Flat Patient Cognition Impaired: Yes Ability to Follow Directions: Fair Speech Pattern: Spontaneous Speech and Soft-Spoken Depressive Symptoms: Changes in Appetite Judgement: Poor Diagnostics Vital Signs (24Hr): Vital Signs - 24 hr 01/17/24 20:00 01/18/24 08:35 Temperature 97.4 F 97.9 F Pulse Rate 96 88 Respiratory Rate 18 16 Blood Pressure 89/59 L 94/60 Pulse Oximetry 95 94 Oxygen Delivery Method Room Air Room Air BMI result Body Mass Index 17.5 Labs 01/18/24 08:02 01/18/24 08:02 Labs: Laboratory Results - last 48 hr 01/18/24 08:02 WBC 5.5 RBC 3.79 L Hgb 13.5 L Hct 37.8 L MCV 99.7 H MCH 35.6 H MCHC 35.7 RDW 12.2 Plt Count 164 MPV 11.3 Immature Gran % (Auto) 0.4 Neut % (Auto) 64.7 Lymph % (Auto) 23.2 [place] % (Auto) 11.3 H Eos % (Auto) 0.2 Baso % (Auto) 0.2 Lymph # (Auto) 1.3 [place] # (Auto) 0.6 Eos # (Auto) 0.0 Baso # (Auto) 0.0 Abs Immat Gran (auto) 0.02 Absolute Neuts (auto) 3.6 Absolute Nucleated RBC 0.000 Nucleated RBC % (auto) 0.0 Sodium 139 Potassium 4.6 Chloride 104 Carbon Dioxide 27 Anion Gap 13 BUN 40 H Creatinine 1.09 Estim Creat Clear Calc 49.9 Estimated GFR > 60 Random Glucose 85 Calcium 9.6 D Total Bilirubin 1.0 AST 17 ALT 21 Alkaline Phosphatase 94 Total Protein 6.5 Albumin 3.5 Imaging Radiology Impressions: ITS Impressions Chest X-Ray 11/14/23 15:16 IMPRESSION: No evidence of acute disease. No pulmonary mass, pneumonia or pleural effusion. Chest CT 12/21/23 14:32 IMPRESSION: 1. No focal infiltrate is seen. 2. A 4 mm noncalcified subpleural nodule is seen within the posterior segment of the right upper lobe. According to the UPDATED 2017 Fleischner Society recommendations, the advised follow-up imaging for solid nodules < 6 mm is: LOW RISK PATIENT: No routine follow-up. HIGH RISK PATIENT: Optional CT at 12 months. 3. There is no thoracic lymphadenopathy or pleural effusion. 4. There is a marked kyphoscoliosis. No acute or aggressive osseous lesion is seen. 5. There is mild cholelithiasis. Fleischner guidelines were followed. Medications Medications Current Medications Acetaminophen (Acetaminophen 325 Mg Tablet) 650 mg PO Q6H PRN PRN Reason: Headache/Pain Mild Scale (1-3) Last Admin: 01/05/24 21:11 Dose: 650 mg Al Hydroxide/Mg Hydroxide (Magnesium Hydrox/Alum Hydrox 30 Ml Oral.Susp) 30 ml PO Q6H PRN PRN Reason: Heartburn/Nausea Last Admin: 10/31/23 23:58 Dose: 30 ml Famotidine (Famotidine 20 Mg Tablet) 20 mg PO DAILY YESY Last Admin: 01/18/24 08:36 Dose: 20 mg Loperamide HCl (Loperamide Hcl 2 Mg Capsule) 2 mg PO Q4H PRN PRN Reason: loose stools Last Admin: 01/13/24 15:22 Dose: 2 mg Magnesium Hydroxide (Milk Of Magnesia 30 Ml Oral.Susp) 30 ml PO DAILY PRN PRN Reason: Constipation Last Admin: 01/16/24 16:54 Dose: 30 ml Memantine (Memantine Hcl 5 Mg Tablet) 5 mg PO BID YESY Last Admin: 01/18/24 08:36 Dose: 5 mg Mirtazapine (Mirtazapine 7.5 Mg Tablet) 7.5 mg PO BEDTIME [facility] Last Admin: 01/17/24 20:19 Dose: 7.5 mg Ondansetron HCl (Ondansetron Odt 4 Mg Tab.Rapdis) 4 mg TRANSLINGU Q8H PRN PRN Reason: Nausea and Vomiting Last Admin: 12/02/23 11:31 Dose: 4 mg Risperidone (Risperidone 2 Mg Tablet) 2 mg PO BEDTIME YESY Last Admin: 01/17/24 20:18 Dose: 2 mg Senna (Sennosides 8.6 Mg Tablet) 8.6 mg PO BEDTIME YESY Last Admin: 01/17/24 20:18 Dose: 8.6 mg Trazodone HCl (Trazodone Hcl 50 Mg Tablet) 50 mg PO BEDTIME PRN PRN Reason: Insomnia Last Admin: 01/17/24 20:19 Dose: 50 mg Vortioxetine (Vortioxetine Hydrobromide 5 Mg Tablet) 5 mg PO DAILY [facility] Last Admin: 01/18/24 08:36 Dose: 5 mg Allergies Allergies Allergy/AdvReac Type Severity Reaction Status Date / Time omeprazole Allergy Unknown Verified 10/30/23 00:09 Assessment & Plan Assessment & Plan (1) Schizophrenia: Status: Acute Code(s): F20.9 - Schizophrenia, unspecified (2) Failure to thrive in adult: Status: Acute Code(s): R62.7 - Adult failure to thrive Plan The patient is a 63-year-old male with a past history of schizophrenia who had been in and out of several facilities in the last year with severe hypoactive behavior, catatonic like symptoms and chronic noncompliance who needed to go for [place] 7 and 8 for ECT. Even though that he had been treated with antipsychotics he remains still internally preoccupied. Plan 1. ECT has been held since the patient was over-sedated of the procedure even though he had a partial response. 2. Risperdal increased up to 2 mg p.o. q.h.s. on January 10. 3. Continue with same medications. 01/15/2024 Increase Namenda 5 mg twice a day 01/16/2024 Dysphoric withdrawn consider Trintellix 5 mg monitor for agitation history of paranoia 01/17/24 Team report loose stool, ?impaction--KUB, CBCD, CMP 01/17 KUB results pending per radiology BUN 40 CBCD values declining nutrition consult to improve hydration. Reason for continued inpatient stay Substantial Risk for: rapid decompensation and med/psych decompensation Time Spent With Patient Time: Total time managing care of this patient today ____ minutes.
[2024-01-18 19:49] VITALS: BP 93/52; PULSE 85; RESP 16; TEMP 36.3; O2SAT 95
[2024-01-18] MEDS: Mirtazapine 7.5 MG TABLET PO (20:27)
[2024-01-18] MEDS: risperiDONE 2 MG TABLET PO (20:28)
[2024-01-18] MEDS: Sennosides 8.6 MG TABLET PO (20:28)
[2024-01-19 08:30] VITALS: BP 103/75; PULSE 91; RESP 20; TEMP 36.3; O2SAT 94
[2024-01-19] MEDS: Vortioxetine Hydrobromide 5 MG TABLET PO (08:30)
[2024-01-19] MEDS: Famotidine 20 MG TABLET PO (08:30)
[2024-01-19] MEDS: Memantine HCl 5 MG TABLET PO ×2 (08:31→19:59)
[2024-01-19] MEDS: modafiniL 100 MG TABLET 50 MG PO (09:34)
--- NOTE | 2024-01-19 12:29 | MHC.CLN ---
CONSULT CONSULT FOR HYDRATION. TAKES ENSURE EACH MEAL. POOR INTAKE OF FOOD. DIET=REGULAR. ENSURE TID PROVIDES 1050 KCALS, 60 G PROTEIN. PATIENT ACCEPTS SUPPLEMENT. TRIED ENSURE CLEAR AT LUNCH TODAY. ACCEPTED AND APPEARED TO DRINK 100%. ADDING ENSURE CLEAR TID (720 KCALS, 24 G PROTEIN) IN ADDITION TO ENSURE TID. ENCOURAGE ADDITIONAL SNACKS AND SUPPLEMENTS FROM UNIT KITCHEN. NO SIGNIFICANT WEIGHT CHANGE SINCE 11/03. CONTINUE CURRENT DIET, SUPPLEMENTS AND ENCOURAGE INTAKE ABLE. RD TO FOLLOW WEEKLY.
--- NOTE | 2024-01-19 13:21 | HO.PSYCHPN ---
Subjective Subjective Date of Service: 01/19/24 Reason For Visit: Schizoaffective disorder, unspecified type Interim History: Pt reports not feeling too well, however, when saying this he is up, ambulating and smiling at times-?effects of Provigil/Trintellix. Positive change observed. Team reports less interactive overall. Medication Compliance: Yes Side effects from medications: Yes Review of Systems Acute medical concerns: No Medical Review of Systems: unchanged Review of Systems Review of Systems Yes all other systems are reviewed and are negative and Unobtainable due to mental status Mental Status Exam Mental Status Exam Patient Appearance: Appropriate Patient Orientation: Person Level of Consciousness: Sedated Patient Behavior: Cooperative and Passive Mood Description: Flat Affect Description: Flat Patient Cognition Impaired: Yes Ability to Follow Directions: Fair Speech Pattern: Spontaneous Speech and Soft-Spoken Depressive Symptoms: Changes in Appetite Judgement: Poor Diagnostics Vital Signs (24Hr): Vital Signs - 24 hr 01/18/24 19:49 01/19/24 08:30 Temperature 97.4 F 97.4 F Pulse Rate 85 91 Respiratory Rate 16 20 Blood Pressure 93/52 L 103/75 Pulse Oximetry 95 94 Oxygen Delivery Method Room Air Room Air BMI result Body Mass Index 17.5 Labs 01/18/24 08:02 01/18/24 08:02 Labs: Laboratory Results - last 48 hr 01/18/24 08:02 WBC 5.5 RBC 3.79 L Hgb 13.5 L Hct 37.8 L MCV 99.7 H MCH 35.6 H MCHC 35.7 RDW 12.2 Plt Count 164 MPV 11.3 Immature Gran % (Auto) 0.4 Neut % (Auto) 64.7 Lymph % (Auto) 23.2 [place] % (Auto) 11.3 H Eos % (Auto) 0.2 Baso % (Auto) 0.2 Lymph # (Auto) 1.3 [place] # (Auto) 0.6 Eos # (Auto) 0.0 Baso # (Auto) 0.0 Abs Immat Gran (auto) 0.02 Absolute Neuts (auto) 3.6 Absolute Nucleated RBC 0.000 Nucleated RBC % (auto) 0.0 Sodium 139 Potassium 4.6 Chloride 104 Carbon Dioxide 27 Anion Gap 13 BUN 40 H Creatinine 1.09 Estim Creat Clear Calc 49.9 Estimated GFR > 60 Random Glucose 85 Calcium 9.6 D Total Bilirubin 1.0 AST 17 ALT 21 Alkaline Phosphatase 94 Total Protein 6.5 Albumin 3.5 Imaging Radiology Impressions: ITS Impressions Chest X-Ray 11/14/23 15:16 IMPRESSION: No evidence of acute disease. No pulmonary mass, pneumonia or pleural effusion. Chest CT 12/21/23 14:32 IMPRESSION: 1. No focal infiltrate is seen. 2. A 4 mm noncalcified subpleural nodule is seen within the posterior segment of the right upper lobe. According to the UPDATED 2017 Fleischner Society recommendations, the advised follow-up imaging for solid nodules < 6 mm is: LOW RISK PATIENT: No routine follow-up. HIGH RISK PATIENT: Optional CT at 12 months. 3. There is no thoracic lymphadenopathy or pleural effusion. 4. There is a marked kyphoscoliosis. No acute or aggressive osseous lesion is seen. 5. There is mild cholelithiasis. Fleischner guidelines were followed. Medications Medications Current Medications Acetaminophen (Acetaminophen 325 Mg Tablet) 650 mg PO Q6H PRN PRN Reason: Headache/Pain Mild Scale (1-3) Last Admin: 01/05/24 21:11 Dose: 650 mg Al Hydroxide/Mg Hydroxide (Magnesium Hydrox/Alum Hydrox 30 Ml Oral.Susp) 30 ml PO Q6H PRN PRN Reason: Heartburn/Nausea Last Admin: 10/31/23 23:58 Dose: 30 ml Famotidine (Famotidine 20 Mg Tablet) 20 mg PO DAILY [facility] Last Admin: 01/19/24 08:30 Dose: 20 mg Loperamide HCl (Loperamide Hcl 2 Mg Capsule) 2 mg PO Q4H PRN PRN Reason: loose stools Last Admin: 01/13/24 15:22 Dose: 2 mg Magnesium Hydroxide (Milk Of Magnesia 30 Ml Oral.Susp) 30 ml PO DAILY PRN PRN Reason: Constipation Last Admin: 01/16/24 16:54 Dose: 30 ml Memantine (Memantine Hcl 5 Mg Tablet) 5 mg PO BID [facility] Last Admin: 01/19/24 08:31 Dose: 5 mg Mirtazapine (Mirtazapine 7.5 Mg Tablet) 7.5 mg PO BEDTIME [facility] Last Admin: 01/18/24 20:27 Dose: 7.5 mg Modafinil (Modafinil 100 Mg Tablet) 50 mg PO DAILY [facility] Last Admin: 01/19/24 09:34 Dose: 50 mg Ondansetron HCl (Ondansetron Odt 4 Mg Tab.Rapdis) 4 mg TRANSLINGU Q8H PRN PRN Reason: Nausea and Vomiting Last Admin: 12/02/23 11:31 Dose: 4 mg Risperidone (Risperidone 2 Mg Tablet) 2 mg PO BEDTIME YESY Last Admin: 01/18/24 20:28 Dose: 2 mg Senna (Sennosides 8.6 Mg Tablet) 8.6 mg PO BEDTIME YESY Last Admin: 01/18/24 20:28 Dose: 8.6 mg Trazodone HCl (Trazodone Hcl 50 Mg Tablet) 50 mg PO BEDTIME PRN PRN Reason: Insomnia Last Admin: 01/17/24 20:19 Dose: 50 mg Vortioxetine (Vortioxetine Hydrobromide 5 Mg Tablet) 5 mg PO DAILY [facility] Last Admin: 01/19/24 08:30 Dose: 5 mg Allergies Allergies Allergy/AdvReac Type Severity Reaction Status Date / Time omeprazole Allergy Unknown Verified 10/30/23 00:09 Assessment & Plan Assessment & Plan (1) Schizophrenia: Status: Acute Code(s): F20.9 - Schizophrenia, unspecified (2) Failure to thrive in adult: Status: Acute Code(s): R62.7 - Adult failure to thrive Plan The patient is a 63-year-old male with a past history of schizophrenia who had been in and out of several facilities in the last year with severe hypoactive behavior, catatonic like symptoms and chronic noncompliance who needed to go for [place] 7 and 8 for ECT. Even though that he had been treated with antipsychotics he remains still internally preoccupied. Plan 1. ECT has been held since the patient was over-sedated of the procedure even though he had a partial response. 2. Risperdal increased up to 2 mg p.o. q.h.s. on January 10. 3. Continue with same medications. 01/15/2024 Increase Namenda 5 mg twice a day 01/16/2024 Dysphoric withdrawn consider Trintellix 5 mg monitor for agitation history of paranoiaconsider provigil for apathy with dementia 01/18 Continue tx Reason for continued inpatient stay Substantial Risk for: rapid decompensation and med/psych decompensation Time Spent With Patient Time: Total time managing care of this patient today ____ minutes.
[2024-01-19] MEDS: Milk of Magnesia 30 ML ORAL.SUSP PO (19:01)
[2024-01-19] MEDS: Sennosides 8.6 MG TABLET PO (19:59)
[2024-01-19] MEDS: traZODone HCL 50 MG TABLET PO (19:59)
[2024-01-19] MEDS: Mirtazapine 7.5 MG TABLET PO (19:59)
[2024-01-19] MEDS: risperiDONE 2 MG TABLET PO (19:59)
[2024-01-19 20:00] VITALS: BP 102/58; PULSE 92; RESP 16; TEMP 36.9; O2SAT 94
[2024-01-20 07:00] VITALS: BMI 17.7
[2024-01-20 07:57] VITALS: BP 81/53; PULSE 71; RESP 14; TEMP 36.3; O2SAT 93
[2024-01-20] MEDS: Famotidine 20 MG TABLET PO (08:00)
[2024-01-20] MEDS: modafiniL 100 MG TABLET 50 MG PO (08:00)
[2024-01-20] MEDS: Vortioxetine Hydrobromide 5 MG TABLET PO (08:00)
[2024-01-20] MEDS: Memantine HCl 5 MG TABLET PO ×2 (08:00→20:33)
[2024-01-20 10:15] VITALS: BP 92/50
--- NOTE | 2024-01-20 15:18 | HO.PSYCHPN ---
Subjective Subjective Date of Service: 01/20/24 Reason For Visit: Schizoaffective disorder, unspecified type Interim History: Pt napping today when seen. Appears calm and comfortable. Opens eyes briefly, then returns to a restful state. Team reports they see no change in activity with medication changes-pt with anergy, poor intake, hypotensive (80/50), difficult to engage Medication Compliance: Yes Side effects from medications: No Attending Groups: No Review of Systems poor intake reports consistently he feels poorly. Medical Review of Systems: unchanged Review of Systems Review of Systems Yes all other systems are reviewed and are negative and Unobtainable due to mental status Mental Status Exam Mental Status Exam Patient Appearance: Appropriate Patient Orientation: Person Level of Consciousness: Sedated Patient Behavior: Cooperative and Passive Mood Description: Flat Affect Description: Flat Patient Cognition Impaired: Yes Ability to Follow Directions: Fair Speech Pattern: Spontaneous Speech and Soft-Spoken Depressive Symptoms: Changes in Appetite Judgement: Poor Diagnostics Vital Signs (24Hr): Vital Signs - 24 hr 01/19/24 20:00 01/20/24 07:57 01/20/24 10:15 Temperature 98.4 F 97.3 F Pulse Rate 92 71 Respiratory Rate 16 14 Blood Pressure 102/58 L 81/53 L 92/50 L Pulse Oximetry 94 93 Oxygen Delivery Method Room Air Room Air BMI result Body Mass Index 17.5 Labs 01/18/24 08:02 01/18/24 08:02 Imaging Radiology Impressions: ITS Impressions Chest X-Ray 11/14/23 15:16 IMPRESSION: No evidence of acute disease. No pulmonary mass, pneumonia or pleural effusion. Chest CT 12/21/23 14:32 IMPRESSION: 1. No focal infiltrate is seen. 2. A 4 mm noncalcified subpleural nodule is seen within the posterior segment of the right upper lobe. According to the UPDATED 2017 Fleischner Society recommendations, the advised follow-up imaging for solid nodules < 6 mm is: LOW RISK PATIENT: No routine follow-up. HIGH RISK PATIENT: Optional CT at 12 months. 3. There is no thoracic lymphadenopathy or pleural effusion. 4. There is a marked kyphoscoliosis. No acute or aggressive osseous lesion is seen. 5. There is mild cholelithiasis. Fleischner guidelines were followed. KUB X-Ray 01/17/24 10:57 IMPRESSION: Multiple prominent, distended air-filled loops of small and large bowel. [id number] amount of stool in the colon. Correlation with clinical exam recommended to determine further management including possible additional imaging with CT scan of the abdomen and pelvis if abdominal pathology is suspected. This study was presented today January 19, 2024 for interpretation. Stat results provided at this time as requested by referring provider. Medications Medications Current Medications Acetaminophen (Acetaminophen 325 Mg Tablet) 650 mg PO Q6H PRN PRN Reason: Headache/Pain Mild Scale (1-3) Last Admin: 01/05/24 21:11 Dose: 650 mg Al Hydroxide/Mg Hydroxide (Magnesium Hydrox/Alum Hydrox 30 Ml Oral.Susp) 30 ml PO Q6H PRN PRN Reason: Heartburn/Nausea Last Admin: 10/31/23 23:58 Dose: 30 ml Famotidine (Famotidine 20 Mg Tablet) 20 mg PO DAILY [facility] Last Admin: 01/20/24 08:00 Dose: 20 mg Loperamide HCl (Loperamide Hcl 2 Mg Capsule) 2 mg PO Q4H PRN PRN Reason: loose stools Last Admin: 01/13/24 15:22 Dose: 2 mg Magnesium Hydroxide (Milk Of Magnesia 30 Ml Oral.Susp) 30 ml PO DAILY PRN PRN Reason: Constipation Last Admin: 01/19/24 19:01 Dose: 30 ml Memantine (Memantine Hcl 5 Mg Tablet) 5 mg PO BID [facility] Last Admin: 01/20/24 08:00 Dose: 5 mg Mirtazapine (Mirtazapine 7.5 Mg Tablet) 7.5 mg PO BEDTIME [facility] Last Admin: 01/19/24 19:59 Dose: 7.5 mg Modafinil (Modafinil 100 Mg Tablet) 50 mg PO DAILY [facility] Last Admin: 01/20/24 08:00 Dose: 50 mg Ondansetron HCl (Ondansetron Odt 4 Mg Tab.Rapdis) 4 mg TRANSLINGU Q8H PRN PRN Reason: Nausea and Vomiting Last Admin: 12/02/23 11:31 Dose: 4 mg Risperidone (Risperidone 2 Mg Tablet) 2 mg PO BEDTIME [facility]Y Last Admin: 01/19/24 19:59 Dose: 2 mg Senna (Sennosides 8.6 Mg Tablet) 8.6 mg PO BEDTIME [facility] Last Admin: 01/19/24 19:59 Dose: 8.6 mg Trazodone HCl (Trazodone Hcl 50 Mg Tablet) 50 mg PO BEDTIME PRN PRN Reason: Insomnia Last Admin: 01/19/24 19:59 Dose: 50 mg Vortioxetine (Vortioxetine Hydrobromide 5 Mg Tablet) 5 mg PO DAILY [facility] Last Admin: 01/20/24 08:00 Dose: 5 mg Allergies Allergies Allergy/AdvReac Type Severity Reaction Status Date / Time omeprazole Allergy Unknown Verified 10/30/23 00:09 Assessment & Plan Assessment & Plan (1) Schizophrenia: Status: Acute Code(s): F20.9 - Schizophrenia, unspecified (2) Failure to thrive in adult: Status: Acute Code(s): R62.7 - Adult failure to thrive Plan The patient is a 63-year-old male with a past history of schizophrenia who had been in and out of several facilities in the last year with severe hypoactive behavior, catatonic like symptoms and chronic noncompliance who needed to go for [facility] 7 and 8 for ECT. Even though that he had been treated with antipsychotics he remains still internally preoccupied. Plan 1. ECT has been held since the patient was over-sedated of the procedure even though he had a partial response. 2. Risperdal increased up to 2 mg p.o. q.h.s. on January 10. 3. Continue with same medications. 01/15/2024 Increase Namenda 5 mg twice a day 01/16/2024 Dysphoric withdrawn consider Trintellix 5 mg monitor for agitation history of paranoiaconsider provigil for apathy with dementia 01/18 Continue tx 01/19 Continue tx Reason for continued inpatient stay Substantial Risk for: rapid decompensation Time Spent With Patient Time: Total time managing care of this patient today ____ minutes.
[2024-01-20] MEDS: Sennosides 8.6 MG TABLET PO (20:33)
[2024-01-20] MEDS: risperiDONE 2 MG TABLET PO (20:33)
[2024-01-20] MEDS: Mirtazapine 7.5 MG TABLET PO (20:33)
[2024-01-20 21:38] VITALS: BP 83/51; PULSE 83; RESP 16; TEMP 36.9; O2SAT 95
[2024-01-21 07:55] VITALS: BP 100/60; PULSE 89; RESP 16; TEMP -12.3; TEMP 9.9; O2SAT 95
[2024-01-21] MEDS: Famotidine 20 MG TABLET PO (08:20)
[2024-01-21] MEDS: Memantine HCl 5 MG TABLET PO ×2 (08:20→20:41)
[2024-01-21] MEDS: modafiniL 100 MG TABLET 50 MG PO (08:20)
[2024-01-21] MEDS: Vortioxetine Hydrobromide 5 MG TABLET PO (08:20)
[2024-01-21] MEDS: Milk of Magnesia 30 ML ORAL.SUSP PO (08:21)
--- NOTE | 2024-01-21 16:56 | HO.PSYCHPN ---
Subjective Subjective Date of Service: 01/21/24 Reason For Visit: Schizoaffective disorder, unspecified type Subjective Notes: Conditional Voluntary Interim History: The nursing staff reported the patient had been mostly the time isolative in his room. He has been only taking ensure p.o.. A few days ago he got a KUB and he was constipated. Today we filed all the paperwork for the affidavits and other legal paperwork. On interview the patient denies new symptoms, waiting for placement Mental Status Exam Mental Status Exam Patient Appearance: Appropriate Patient Orientation: Person and Situation Level of Consciousness: Awake Patient Behavior: Guarded and Passive Mood Description: Withdrawn Affect Description: Blunted Patient Cognition Impaired: Yes Ability to Follow Directions: Good Speech Pattern: Clear Hallucinations: None Delusions: Not Present Thought Process: Slowed Thinking Thought Content: positive for [place] and positive for Poverty of Content Judgement: Fair Diagnostics Vital Signs (24Hr): Vital Signs - 24 hr 01/20/24 21:38 01/21/24 07:55 Temperature 98.4 F 9.9 F L Pulse Rate 83 89 Respiratory Rate 16 16 Blood Pressure 83/51 L 100/60 Pulse Oximetry 95 95 Oxygen Delivery Method Room Air Room Air BMI result Body Mass Index 17.7 Labs 01/18/24 08:02 01/18/24 08:02 Imaging Radiology Impressions: ITS Impressions Chest X-Ray 11/14/23 15:16 IMPRESSION: No evidence of acute disease. No pulmonary mass, pneumonia or pleural effusion. Chest CT 12/21/23 14:32 IMPRESSION: 1. No focal infiltrate is seen. 2. A 4 mm noncalcified subpleural nodule is seen within the posterior segment of the right upper lobe. According to the UPDATED 2017 Fleischner Society recommendations, the advised follow-up imaging for solid nodules < 6 mm is: LOW RISK PATIENT: No routine follow-up. HIGH RISK PATIENT: Optional CT at 12 months. 3. There is no thoracic lymphadenopathy or pleural effusion. 4. There is a marked kyphoscoliosis. No acute or aggressive osseous lesion is seen. 5. There is mild cholelithiasis. Fleischner guidelines were followed. KUB X-Ray 01/17/24 10:57 IMPRESSION: Multiple prominent, distended air-filled loops of small and large bowel. [id number] amount of stool in the colon. Correlation with clinical exam recommended to determine further management including possible additional imaging with CT scan of the abdomen and pelvis if abdominal pathology is suspected. This study was presented today January 19, 2024 for interpretation. Stat results provided at this time as requested by referring provider. Medications Medications Current Medications Acetaminophen (Acetaminophen 325 Mg Tablet) 650 mg PO Q6H PRN PRN Reason: Headache/Pain Mild Scale (1-3) Last Admin: 01/05/24 21:11 Dose: 650 mg Al Hydroxide/Mg Hydroxide (Magnesium Hydrox/Alum Hydrox 30 Ml Oral.Susp) 30 ml PO Q6H PRN PRN Reason: Heartburn/Nausea Last Admin: 10/31/23 23:58 Dose: 30 ml Famotidine (Famotidine 20 Mg Tablet) 20 mg PO DAILY [facility] Last Admin: 01/21/24 08:20 Dose: 20 mg Loperamide HCl (Loperamide Hcl 2 Mg Capsule) 2 mg PO Q4H PRN PRN Reason: loose stools Last Admin: 01/13/24 15:22 Dose: 2 mg Magnesium Hydroxide (Milk Of Magnesia 30 Ml Oral.Susp) 30 ml PO DAILY PRN PRN Reason: Constipation Last Admin: 01/21/24 08:21 Dose: 30 ml Memantine (Memantine Hcl 5 Mg Tablet) 5 mg PO BID YESY Last Admin: 01/21/24 08:20 Dose: 5 mg Mirtazapine (Mirtazapine 7.5 Mg Tablet) 7.5 mg PO BEDTIME [facility] Last Admin: 01/20/24 20:33 Dose: 7.5 mg Modafinil (Modafinil 100 Mg Tablet) 50 mg PO DAILY [facility] Last Admin: 01/21/24 08:20 Dose: 50 mg Ondansetron HCl (Ondansetron Odt 4 Mg Tab.Rapdis) 4 mg TRANSLINGU Q8H PRN PRN Reason: Nausea and Vomiting Last Admin: 12/02/23 11:31 Dose: 4 mg Risperidone (Risperidone 2 Mg Tablet) 2 mg PO BEDTIME [facility] Last Admin: 01/20/24 20:33 Dose: 2 mg Senna (Sennosides 8.6 Mg Tablet) 8.6 mg PO BEDTIME [facility] Last Admin: 01/20/24 20:33 Dose: 8.6 mg Trazodone HCl (Trazodone Hcl 50 Mg Tablet) 50 mg PO BEDTIME PRN PRN Reason: Insomnia Last Admin: 01/19/24 19:59 Dose: 50 mg Vortioxetine (Vortioxetine Hydrobromide 5 Mg Tablet) 5 mg PO DAILY [facility] Last Admin: 01/21/24 08:20 Dose: 5 mg Allergies Allergies Allergy/AdvReac Type Severity Reaction Status Date / Time omeprazole Allergy Unknown Verified 10/30/23 00:09 Assessment & Plan Assessment & Plan (1) Schizophrenia: Status: Acute Code(s): F20.9 - Schizophrenia, unspecified (2) Failure to thrive in adult: Status: Acute Code(s): R62.7 - Adult failure to thrive Plan The patient is a 63-year-old male with a past history of schizophrenia who had been in and out of several facilities in the last year with severe hypoactive behavior, catatonic like symptoms and chronic noncompliance who needed to go for [facility] 7 and 8 for ECT. Even though that he had been treated with antipsychotics he remains still internally preoccupied. Plan 1. ECT has been held since the patient was over-sedated of the procedure even though he had a partial response. 2. Risperdal increased up to 2 mg p.o. q.h.s. on January 10. 3. Continue with same medications. 4. Waiting for placement and legal paperwork Reason for continued inpatient stay Substantial Risk for: inability to function, rapid decompensation and med/psych decompensation Time Spent With Patient Time: Total time managing care of this patient today _20___ minutes.
[2024-01-21 20:00] VITALS: BP 109/60; PULSE 78; RESP 16; TEMP 36.1; O2SAT 94
[2024-01-21] MEDS: traZODone HCL 50 MG TABLET PO (20:40)
[2024-01-21] MEDS: Mirtazapine 7.5 MG TABLET PO (20:40)
[2024-01-21] MEDS: Sennosides 8.6 MG TABLET PO (20:40)
[2024-01-21] MEDS: risperiDONE 2 MG TABLET PO (20:40)
--- NOTE | 2024-01-22 08:13 | HO.PSYCHPN ---
Subjective Subjective Date of Service: 01/22/24 Reason For Visit: Schizoaffective disorder, unspecified type Interim History: Met with patient. Discussed with Nursing . Overall minimal engagement with interview. Unsure if he had a bowel movement. Has been constipated. Sleeping okay. Self-care is poor. Did agree to take MiraLax today.. Review of Systems Review of Systems Constipated Mental Status Exam Mental Status Exam Patient Appearance: Appropriate Patient Orientation: Person and Situation Level of Consciousness: Awake Patient Behavior: Guarded and Passive Mood Description: Withdrawn Affect Description: Blunted Patient Cognition Impaired: Yes Ability to Follow Directions: Good Speech Pattern: Clear Hallucinations: None Delusions: Not Present Thought Process: Slowed Thinking Thought Content: positive for [place] and positive for Poverty of Content Judgement: Fair Diagnostics Vital Signs (24Hr): Vital Signs - 24 hr 01/21/24 20:00 Temperature 97 F Pulse Rate 78 Respiratory Rate 16 Blood Pressure 109/60 Pulse Oximetry 94 Oxygen Delivery Method Room Air BMI result Body Mass Index 17.7 Labs 01/18/24 08:02 01/18/24 08:02 Imaging Radiology Impressions: ITS Impressions Chest X-Ray 11/14/23 15:16 IMPRESSION: No evidence of acute disease. No pulmonary mass, pneumonia or pleural effusion. Chest CT 12/21/23 14:32 IMPRESSION: 1. No focal infiltrate is seen. 2. A 4 mm noncalcified subpleural nodule is seen within the posterior segment of the right upper lobe. According to the UPDATED 2017 Fleischner Society recommendations, the advised follow-up imaging for solid nodules < 6 mm is: LOW RISK PATIENT: No routine follow-up. HIGH RISK PATIENT: Optional CT at 12 months. 3. There is no thoracic lymphadenopathy or pleural effusion. 4. There is a marked kyphoscoliosis. No acute or aggressive osseous lesion is seen. 5. There is mild cholelithiasis. Fleischner guidelines were followed. KUB X-Ray 01/17/24 10:57 IMPRESSION: Multiple prominent, distended air-filled loops of small and large bowel. [id number] amount of stool in the colon. Correlation with clinical exam recommended to determine further management including possible additional imaging with CT scan of the abdomen and pelvis if abdominal pathology is suspected. This study was presented today January 19, 2024 for interpretation. Stat results provided at this time as requested by referring provider. Medications Medications Current Medications Acetaminophen (Acetaminophen 325 Mg Tablet) 650 mg PO Q6H PRN PRN Reason: Headache/Pain Mild Scale (1-3) Last Admin: 01/05/24 21:11 Dose: 650 mg Al Hydroxide/Mg Hydroxide (Magnesium Hydrox/Alum Hydrox 30 Ml Oral.Susp) 30 ml PO Q6H PRN PRN Reason: Heartburn/Nausea Last Admin: 10/31/23 23:58 Dose: 30 ml Famotidine (Famotidine 20 Mg Tablet) 20 mg PO DAILY [facility] Last Admin: 01/21/24 08:20 Dose: 20 mg Loperamide HCl (Loperamide Hcl 2 Mg Capsule) 2 mg PO Q4H PRN PRN Reason: loose stools Last Admin: 01/13/24 15:22 Dose: 2 mg Magnesium Hydroxide (Milk Of Magnesia 30 Ml Oral.Susp) 30 ml PO DAILY PRN PRN Reason: Constipation Last Admin: 01/21/24 08:21 Dose: 30 ml Memantine (Memantine Hcl 5 Mg Tablet) 5 mg PO BID [facility] Last Admin: 01/21/24 20:41 Dose: 5 mg Mirtazapine (Mirtazapine 7.5 Mg Tablet) 7.5 mg PO BEDTIME [facility] Last Admin: 01/21/24 20:40 Dose: 7.5 mg Modafinil (Modafinil 100 Mg Tablet) 50 mg PO DAILY [facility] Last Admin: 01/21/24 08:20 Dose: 50 mg Ondansetron HCl (Ondansetron Odt 4 Mg Tab.Rapdis) 4 mg TRANSLINGU Q8H PRN PRN Reason: Nausea and Vomiting Last Admin: 12/02/23 11:31 Dose: 4 mg Risperidone (Risperidone 2 Mg Tablet) 2 mg PO BEDTIME YESY Last Admin: 01/21/24 20:40 Dose: 2 mg Senna (Sennosides 8.6 Mg Tablet) 8.6 mg PO BEDTIME YESY Last Admin: 01/21/24 20:40 Dose: 8.6 mg Trazodone HCl (Trazodone Hcl 50 Mg Tablet) 50 mg PO BEDTIME PRN PRN Reason: Insomnia Last Admin: 01/21/24 20:40 Dose: 50 mg Vortioxetine (Vortioxetine Hydrobromide 5 Mg Tablet) 5 mg PO DAILY [facility] Last Admin: 01/21/24 08:20 Dose: 5 mg Allergies Allergies Allergy/AdvReac Type Severity Reaction Status Date / Time omeprazole Allergy Unknown Verified 10/30/23 00:09 Assessment & Plan Assessment & Plan (1) Schizophrenia: Status: Acute Code(s): F20.9 - Schizophrenia, unspecified (2) Failure to thrive in adult: Status: Acute Code(s): R62.7 - Adult failure to thrive Plan The patient is a 63-year-old male with a past history of schizophrenia who had been in and out of several facilities in the last year with severe hypoactive behavior, catatonic like symptoms and chronic noncompliance who needed to go for Section 7 and 8 for ECT. Even though that he had been treated with antipsychotics he remains still internally preoccupied. Plan 1. ECT has been held since the patient was over-sedated of the procedure even though he had a partial response. 2. Risperdal increased up to 2 mg p.o. q.h.s. on January 10. 3. Continue with same medications. 4. Waiting for placement and legal paperwork 01/22/2024: No changes to current plan. Will add MiraLax Reason for continued inpatient stay Substantial Risk for: inability to function Time Spent With Patient Time: Total time managing care of this patient today ____ minutes.
[2024-01-22 08:44] VITALS: BP 82/45; PULSE 78; RESP 18; TEMP 36.3; O2SAT 95
[2024-01-22] MEDS: modafiniL 100 MG TABLET 50 MG PO (08:57)
[2024-01-22] MEDS: Memantine HCl 5 MG TABLET PO (08:57)
[2024-01-22] MEDS: Vortioxetine Hydrobromide 5 MG TABLET PO (08:58)
[2024-01-22] MEDS: Famotidine 20 MG TABLET PO (08:58)
--- NOTE | 2024-01-22 15:09 | PC.NURSE ---
Patient first stated that he didn't remember if he's had a bowel movement after the MOM and then he said he went a small amount today. He refused a bowel exam when I asked. He said he would take Miralax in ice water. Dr. Middleton updated, to write orders.
[2024-01-22] MEDS: polyethylene glycoL 3350 17 GM POWD.PACK PO (15:17)
[2024-01-22 20:00] VITALS: BP 113/50; PULSE 57; RESP 18; TEMP 36.1; O2SAT 95
[2024-01-23] MEDS: Memantine HCl 5 MG TABLET PO ×3 (04:53→19:50)
[2024-01-23] MEDS: Mirtazapine 7.5 MG TABLET PO ×2 (04:54→19:50)
[2024-01-23] MEDS: risperiDONE 2 MG TABLET PO ×2 (04:54→19:50)
[2024-01-23] MEDS: Sennosides 8.6 MG TABLET PO ×2 (04:55→19:50)
[2024-01-23 08:32] VITALS: BP 81/57; PULSE 74; RESP 18; TEMP 36.5; O2SAT 94
[2024-01-23] MEDS: Famotidine 20 MG TABLET PO (08:35)
[2024-01-23] MEDS: Vortioxetine Hydrobromide 5 MG TABLET PO (08:35)
[2024-01-23] MEDS: modafiniL 100 MG TABLET 50 MG PO (08:35)
--- NOTE | 2024-01-23 10:27 | P.PNPSI_ITS ---
Subjective Subjective Date of Service: 01/23/24 Reason For Visit: Schizoaffective disorder, unspecified type Interim History: Met with patient. Discussed with Nursing . Overall minimal engagement with interview. Depressed. Reports less constipated today. Sleeping okay. Self-care is poor. Medication Compliance: Yes Side effects from medications: No Attending Groups: No Review of Systems Acute medical concerns: No Review of Systems Review of Systems Constipation improving Mental Status Exam Mental Status Exam Narrative: Appearance: cachectic, malnourished, improved hygiene, in NAD Behavior: cooperative Psychomotor: retardation noted Speech: mostly clear, regular rate, more spontaneous TP: mostly linear, not much detail provided TC: wants to go home Mood: not assessed Affect: constricted SI: none expressed HI: none expressed VH/AH:none expressed Delusions: not overt reports. Insight/judgment: impaired x 2. Diagnostics Vital Signs (24Hr): Vital Signs - 24 hr 01/22/24 20:00 01/23/24 08:32 Temperature 97 F 97.7 F Pulse Rate 57 74 Respiratory Rate 18 18 Blood Pressure 113/50 L 81/57 L Pulse Oximetry 95 94 Oxygen Delivery Method Room Air Room Air BMI result Body Mass Index 17.7 Labs 01/18/24 08:02 01/18/24 08:02 Imaging Radiology Impressions: ITS Impressions Chest X-Ray 11/14/23 15:16 IMPRESSION: No evidence of acute disease. No pulmonary mass, pneumonia or pleural effusion. Chest CT 12/21/23 14:32 IMPRESSION: 1. No focal infiltrate is seen. 2. A 4 mm noncalcified subpleural nodule is seen within the posterior segment of the right upper lobe. According to the UPDATED 2017 Fleischner Society recommendations, the advised follow-up imaging for solid nodules < 6 mm is: LOW RISK PATIENT: No routine follow-up. HIGH RISK PATIENT: Optional CT at 12 months. 3. There is no thoracic lymphadenopathy or pleural effusion. 4. There is a marked kyphoscoliosis. No acute or aggressive osseous lesion is seen. 5. There is mild cholelithiasis. Fleischner guidelines were followed. KUB X-Ray 01/17/24 10:57 IMPRESSION: Multiple prominent, distended air-filled loops of small and large bowel. Atotpkhx-ww-fhuza amount of stool in the colon. Correlation with clinical exam recommended to determine further management including possible additional imaging with CT scan of the abdomen and pelvis if abdominal pathology is suspected. This study was presented today January 19, 2024 for interpretation. Stat results provided at this time as requested by referring provider. Medications Medications Current Medications Acetaminophen (Acetaminophen 325 Mg Tablet) 650 mg PO Q6H PRN PRN Reason: Headache/Pain Mild Scale (1-3) Last Admin: 01/05/24 21:11 Dose: 650 mg Al Hydroxide/Mg Hydroxide (Magnesium Hydrox/Alum Hydrox 30 Ml Oral.Susp) 30 ml PO Q6H PRN PRN Reason: Heartburn/Nausea Last Admin: 10/31/23 23:58 Dose: 30 ml Famotidine (Famotidine 20 Mg Tablet) 20 mg PO DAILY [facility] Last Admin: 01/23/24 08:35 Dose: 20 mg Loperamide HCl (Loperamide Hcl 2 Mg Capsule) 2 mg PO Q4H PRN PRN Reason: loose stools Last Admin: 01/13/24 15:22 Dose: 2 mg Magnesium Hydroxide (Milk Of Magnesia 30 Ml Oral.Susp) 30 ml PO DAILY PRN PRN Reason: Constipation Last Admin: 01/21/24 08:21 Dose: 30 ml Memantine (Memantine Hcl 5 Mg Tablet) 5 mg PO BID [facility] Last Admin: 01/23/24 08:35 Dose: 5 mg Mirtazapine (Mirtazapine 7.5 Mg Tablet) 7.5 mg PO BEDTIME YESY Last Admin: 01/23/24 04:54 Dose: 7.5 mg Modafinil (Modafinil 100 Mg Tablet) 50 mg PO DAILY [facility] Last Admin: 01/23/24 08:35 Dose: 50 mg Ondansetron HCl (Ondansetron Odt 4 Mg Tab.Rapdis) 4 mg TRANSLINGU Q8H PRN PRN Reason: Nausea and Vomiting Last Admin: 12/02/23 11:31 Dose: 4 mg Polyethylene Glycol (Polyethylene Glycol 3350 17 Gm Powd.Pack) 17 gm PO DAILY [facility] Last Admin: 01/23/24 08:39 Dose: Not Given Risperidone (Risperidone 2 Mg Tablet) 2 mg PO BEDTIME YESY Last Admin: 01/23/24 04:54 Dose: 2 mg Senna (Sennosides 8.6 Mg Tablet) 8.6 mg PO BEDTIME YESY Last Admin: 01/23/24 04:55 Dose: 8.6 mg Trazodone HCl (Trazodone Hcl 50 Mg Tablet) 50 mg PO BEDTIME PRN PRN Reason: Insomnia Last Admin: 01/21/24 20:40 Dose: 50 mg Vortioxetine (Vortioxetine Hydrobromide 5 Mg Tablet) 5 mg PO DAILY [facility] Last Admin: 01/23/24 08:35 Dose: 5 mg Allergies Allergies Allergy/AdvReac Type Severity Reaction Status Date / Time omeprazole Allergy Unknown Verified 10/30/23 00:09 Assessment & Plan Assessment & Plan (1) Schizophrenia: Status: Acute Code(s): F20.9 - Schizophrenia, unspecified (2) Failure to thrive in adult: Status: Acute Code(s): R62.7 - Adult failure to thrive Plan The patient is a 63-year-old male with a past history of schizophrenia who had been in and out of several facilities in the last year with severe hypoactive behavior, catatonic like symptoms and chronic noncompliance who needed to go for Section 7 and 8 for ECT. Even though that he had been treated with antipsychotics he remains still internally preoccupied. Plan 1. ECT has been held since the patient was over-sedated of the procedure even though he had a partial response. 2. Risperdal increased up to 2 mg p.o. q.h.s. on January 10. 3. Continue with same medications. 4. Waiting for placement and legal paperwork 01/22/2024: No changes to current plan. Will add MiraLax 01/22: no changes Reason for continued inpatient stay Substantial Risk for: inability to function Time Spent With Patient Time: Total time managing care of this patient today ____ minutes.
[2024-01-23 19:48] VITALS: BP 101/66; PULSE 85; RESP 18; TEMP 36.4; O2SAT 95
[2024-01-24 08:54] VITALS: BP 92/57; PULSE 96; RESP 16; TEMP 36.8; O2SAT 93
[2024-01-24] MEDS: Famotidine 20 MG TABLET PO (08:56)
[2024-01-24] MEDS: Vortioxetine Hydrobromide 5 MG TABLET PO (08:56)
[2024-01-24] MEDS: Memantine HCl 5 MG TABLET PO ×2 (08:56→20:50)
[2024-01-24] MEDS: modafiniL 100 MG TABLET 50 MG PO (08:56)
--- NOTE | 2024-01-24 10:17 | HO.PSYCHPN ---
Subjective Subjective Date of Service: 01/24/24 Reason For Visit: Schizoaffective disorder, unspecified type Subjective Notes: Section 8 Interim History: Pt slept through the night. He is visible at times during meals. But abulia is still present. No behavioral concerns. Taking medications as prescribed. BP tends to be on low side. No SI/HI. denies any concerns. poverty of thought. Medication Compliance: Yes Review of Systems Review of Systems Constipation improving Yes all other systems are reviewed and are negative and Unobtainable due to mental status Mental Status Exam Mental Status Exam Narrative: Appearance: cachectic, malnourished, improved hygiene, in NAD Behavior: cooperative Psychomotor: retardation noted Speech: mostly clear, regular rate, more spontaneous TP: mostly linear, not much detail provided TC: wants to go home Mood: not assessed Affect: constricted SI: none expressed HI: none expressed VH/AH:none expressed Delusions: not overt reports. Insight/judgment: impaired x 2. Patient Appearance: Appropriate Patient Orientation: Person and Situation Level of Consciousness: Awake Patient Behavior: Guarded and Passive Mood Description: Withdrawn Affect Description: Blunted Patient Cognition Impaired: Yes Ability to Follow Directions: Good Speech Pattern: Clear Diagnostics Vital Signs (24Hr): Vital Signs - 24 hr 01/23/24 19:48 01/24/24 08:54 Temperature 97.5 F 98.3 F Pulse Rate 85 96 Respiratory Rate 18 16 Blood Pressure 101/66 92/57 L Pulse Oximetry 95 93 Oxygen Delivery Method Room Air Room Air BMI result Body Mass Index 17.7 Labs 01/18/24 08:02 01/18/24 08:02 Imaging Radiology Impressions: ITS Impressions Chest X-Ray 11/14/23 15:16 IMPRESSION: No evidence of acute disease. No pulmonary mass, pneumonia or pleural effusion. Chest CT 12/21/23 14:32 IMPRESSION: 1. No focal infiltrate is seen. 2. A 4 mm noncalcified subpleural nodule is seen within the posterior segment of the right upper lobe. According to the UPDATED 2017 Fleischner Society recommendations, the advised follow-up imaging for solid nodules < 6 mm is: LOW RISK PATIENT: No routine follow-up. HIGH RISK PATIENT: Optional CT at 12 months. 3. There is no thoracic lymphadenopathy or pleural effusion. 4. There is a marked kyphoscoliosis. No acute or aggressive osseous lesion is seen. 5. There is mild cholelithiasis. Fleischner guidelines were followed. KUB X-Ray 01/17/24 10:57 IMPRESSION: Multiple prominent, distended air-filled loops of small and large bowel. Kuenswny-rl-lbhfs amount of stool in the colon. Correlation with clinical exam recommended to determine further management including possible additional imaging with CT scan of the abdomen and pelvis if abdominal pathology is suspected. This study was presented today January 19, 2024 for interpretation. Stat results provided at this time as requested by referring provider. Medications Medications Current Medications Acetaminophen (Acetaminophen 325 Mg Tablet) 650 mg PO Q6H PRN PRN Reason: Headache/Pain Mild Scale (1-3) Last Admin: 01/05/24 21:11 Dose: 650 mg Al Hydroxide/Mg Hydroxide (Magnesium Hydrox/Alum Hydrox 30 Ml Oral.Susp) 30 ml PO Q6H PRN PRN Reason: Heartburn/Nausea Last Admin: 10/31/23 23:58 Dose: 30 ml Famotidine (Famotidine 20 Mg Tablet) 20 mg PO DAILY [facility] Last Admin: 01/24/24 08:56 Dose: 20 mg Loperamide HCl (Loperamide Hcl 2 Mg Capsule) 2 mg PO Q4H PRN PRN Reason: loose stools Last Admin: 01/13/24 15:22 Dose: 2 mg Magnesium Hydroxide (Milk Of Magnesia 30 Ml Oral.Susp) 30 ml PO DAILY PRN PRN Reason: Constipation Last Admin: 01/21/24 08:21 Dose: 30 ml Memantine (Memantine Hcl 5 Mg Tablet) 5 mg PO BID [facility] Last Admin: 01/24/24 08:56 Dose: 5 mg Mirtazapine (Mirtazapine 7.5 Mg Tablet) 7.5 mg PO BEDTIME YESY Last Admin: 01/23/24 19:50 Dose: 7.5 mg Modafinil (Modafinil 100 Mg Tablet) 50 mg PO DAILY [facility] Last Admin: 01/24/24 08:56 Dose: 50 mg Ondansetron HCl (Ondansetron Odt 4 Mg Tab.Rapdis) 4 mg TRANSLINGU Q8H PRN PRN Reason: Nausea and Vomiting Last Admin: 12/02/23 11:31 Dose: 4 mg Polyethylene Glycol (Polyethylene Glycol 3350 17 Gm Powd.Pack) 17 gm PO DAILY [facility] Last Admin: 01/24/24 09:08 Dose: Not Given Risperidone (Risperidone 2 Mg Tablet) 2 mg PO BEDTIME YESY Last Admin: 01/23/24 19:50 Dose: 2 mg Senna (Sennosides 8.6 Mg Tablet) 8.6 mg PO BEDTIME YESY Last Admin: 01/23/24 19:50 Dose: 8.6 mg Trazodone HCl (Trazodone Hcl 50 Mg Tablet) 50 mg PO BEDTIME PRN PRN Reason: Insomnia Last Admin: 01/21/24 20:40 Dose: 50 mg Vortioxetine (Vortioxetine Hydrobromide 5 Mg Tablet) 5 mg PO DAILY [facility] Last Admin: 01/24/24 08:56 Dose: 5 mg Allergies Allergies Allergy/AdvReac Type Severity Reaction Status Date / Time omeprazole Allergy Unknown Verified 10/30/23 00:09 Assessment & Plan Assessment & Plan (1) Schizophrenia: Status: Acute Code(s): F20.9 - Schizophrenia, unspecified (2) Failure to thrive in adult: Status: Acute Code(s): R62.7 - Adult failure to thrive Plan The patient is a 63-year-old male with a past history of schizophrenia who had been in and out of several facilities in the last year with severe hypoactive behavior, catatonic like symptoms and chronic noncompliance who needed to go for Section 7 and 8 for ECT. Even though that he had been treated with antipsychotics he remains still internally preoccupied. Plan 01/22/2024: No changes to current plan. Will add MiraLax 01/22: no changes 01/23 continue treatment. Reason for continued inpatient stay Substantial Risk for: inability to function Time Spent With Patient Time: Total time managing care of this patient today ____ minutes.
[2024-01-24 20:00] VITALS: BP 113/62; PULSE 61; RESP 16; TEMP 36; O2SAT 95
[2024-01-24 20:43] LABS: Glucose, Whole Blood 169 mg/dL (60-115)
[2024-01-24] MEDS: risperiDONE 2 MG TABLET PO (20:50)
[2024-01-24] MEDS: Mirtazapine 7.5 MG TABLET PO (20:50)
[2024-01-24] MEDS: Sennosides 8.6 MG TABLET PO (20:50)
[2024-01-24] MEDS: traZODone HCL 50 MG TABLET PO (20:50)
--- NOTE | 2024-01-25 16:59 | HO.PSYCHPN ---
Subjective Subjective Date of Service: 01/25/24 Reason For Visit: Schizoaffective disorder, unspecified type Interim History: Pt slept through the night. He is visible at times during meals. But abulia is still present. No behavioral concerns. Taking medications as prescribed. BP tends to be on low side. No SI/HI. denies any concerns. poverty of thought. Review of Systems Review of Systems Constipation improving Yes all other systems are reviewed and are negative and Unobtainable due to mental status Mental Status Exam Mental Status Exam Narrative: Appearance: cachectic, malnourished, improved hygiene, in NAD Behavior: cooperative Psychomotor: retardation noted Speech: mostly clear, regular rate, more spontaneous TP: mostly linear, not much detail provided TC: wants to go home Mood: not assessed Affect: constricted SI: none expressed HI: none expressed VH/AH:none expressed Delusions: not overt reports. Insight/judgment: impaired x 2. Diagnostics Vital Signs (24Hr): Vital Signs - 24 hr 01/24/24 20:00 Temperature 96.8 F Pulse Rate 61 Respiratory Rate 16 Blood Pressure 113/62 Pulse Oximetry 95 Oxygen Delivery Method Room Air BMI result Body Mass Index 17.7 Labs 01/18/24 08:02 01/18/24 08:02 Labs: Laboratory Results - last 48 hr 01/24/24 16:12 POC Glucose 169 H Imaging Radiology Impressions: ITS Impressions Chest X-Ray 11/14/23 15:16 IMPRESSION: No evidence of acute disease. No pulmonary mass, pneumonia or pleural effusion. Chest CT 12/21/23 14:32 IMPRESSION: 1. No focal infiltrate is seen. 2. A 4 mm noncalcified subpleural nodule is seen within the posterior segment of the right upper lobe. According to the UPDATED 2017 Fleischner Society recommendations, the advised follow-up imaging for solid nodules < 6 mm is: LOW RISK PATIENT: No routine follow-up. HIGH RISK PATIENT: Optional CT at 12 months. 3. There is no thoracic lymphadenopathy or pleural effusion. 4. There is a marked kyphoscoliosis. No acute or aggressive osseous lesion is seen. 5. There is mild cholelithiasis. Fleischner guidelines were followed. KUB X-Ray 01/17/24 10:57 IMPRESSION: Multiple prominent, distended air-filled loops of small and large bowel. Qaiiqwah-cr-[id number] amount of stool in the colon. Correlation with clinical exam recommended to determine further management including possible additional imaging with CT scan of the abdomen and pelvis if abdominal pathology is suspected. This study was presented today January 19, 2024 for interpretation. Stat results provided at this time as requested by referring provider. Medications Medications Current Medications Acetaminophen (Acetaminophen 325 Mg Tablet) 650 mg PO Q6H PRN PRN Reason: Headache/Pain Mild Scale (1-3) Last Admin: 01/05/24 21:11 Dose: 650 mg Al Hydroxide/Mg Hydroxide (Magnesium Hydrox/Alum Hydrox 30 Ml Oral.Susp) 30 ml PO Q6H PRN PRN Reason: Heartburn/Nausea Last Admin: 10/31/23 23:58 Dose: 30 ml Famotidine (Famotidine 20 Mg Tablet) 20 mg PO DAILY [facility] Last Admin: 01/25/24 09:48 Dose: Not Given Loperamide HCl (Loperamide Hcl 2 Mg Capsule) 2 mg PO Q4H PRN PRN Reason: loose stools Last Admin: 01/13/24 15:22 Dose: 2 mg Magnesium Hydroxide (Milk Of Magnesia 30 Ml Oral.Susp) 30 ml PO DAILY PRN PRN Reason: Constipation Last Admin: 01/21/24 08:21 Dose: 30 ml Memantine (Memantine Hcl 5 Mg Tablet) 5 mg PO BID [facility] Last Admin: 01/25/24 09:49 Dose: Not Given Mirtazapine (Mirtazapine 7.5 Mg Tablet) 7.5 mg PO BEDTIME [facility] Last Admin: 01/24/24 20:50 Dose: 7.5 mg Modafinil (Modafinil 100 Mg Tablet) 50 mg PO DAILY [facility] Last Admin: 01/25/24 09:49 Dose: Not Given Ondansetron HCl (Ondansetron Odt 4 Mg Tab.Rapdis) 4 mg TRANSLINGU Q8H PRN PRN Reason: Nausea and Vomiting Last Admin: 12/02/23 11:31 Dose: 4 mg Polyethylene Glycol (Polyethylene Glycol 3350 17 Gm Powd.Pack) 17 gm PO DAILY [facility] Last Admin: 01/25/24 09:49 Dose: Not Given Risperidone (Risperidone 2 Mg Tablet) 2 mg PO BEDTIME [facility] Last Admin: 01/24/24 20:50 Dose: 2 mg Senna (Sennosides 8.6 Mg Tablet) 8.6 mg PO BEDTIME [facility] Last Admin: 01/24/24 20:50 Dose: 8.6 mg Trazodone HCl (Trazodone Hcl 50 Mg Tablet) 50 mg PO BEDTIME PRN PRN Reason: Insomnia Last Admin: 01/24/24 20:50 Dose: 50 mg Vortioxetine (Vortioxetine Hydrobromide 5 Mg Tablet) 5 mg PO DAILY [facility] Last Admin: 01/25/24 09:49 Dose: Not Given Allergies Allergies Allergy/AdvReac Type Severity Reaction Status Date / Time omeprazole Allergy Unknown Verified 10/30/23 00:09 Assessment & Plan Assessment & Plan (1) Schizophrenia: Status: Acute Code(s): F20.9 - Schizophrenia, unspecified (2) Failure to thrive in adult: Status: Acute Code(s): R62.7 - Adult failure to thrive Plan The patient is a 63-year-old male with a past history of schizophrenia who had been in and out of several facilities in the last year with severe hypoactive behavior, catatonic like symptoms and chronic noncompliance who needed to go for Section 7 and 8 for ECT. Even though that he had been treated with antipsychotics he remains still internally preoccupied. Plan 01/22/2024: No changes to current plan. Will add MiraLax 01/22: no changes 01/23 continue tx 01/24 continue tx. Reason for continued inpatient stay Substantial Risk for: inability to function Time Spent With Patient Time: Total time managing care of this patient today ____ minutes.
[2024-01-25 20:00] VITALS: BP 100/67; PULSE 78; RESP 16; TEMP 36.8; O2SAT 95
[2024-01-25] MEDS: Sennosides 8.6 MG TABLET PO (20:54)
[2024-01-25] MEDS: traZODone HCL 50 MG TABLET PO (20:54)
[2024-01-25] MEDS: risperiDONE 2 MG TABLET PO (20:54)
[2024-01-25] MEDS: Memantine HCl 5 MG TABLET PO (20:54)
[2024-01-25] MEDS: Mirtazapine 7.5 MG TABLET PO (20:54)
[2024-01-26] MEDS: Memantine HCl 5 MG TABLET PO ×2 (08:42→20:21)
[2024-01-26] MEDS: modafiniL 100 MG TABLET 50 MG PO (08:42)
[2024-01-26] MEDS: Vortioxetine Hydrobromide 5 MG TABLET PO (08:42)
[2024-01-26] MEDS: Famotidine 20 MG TABLET PO (08:42)
[2024-01-26 08:51] VITALS: BP 90/55; PULSE 72; RESP 18; TEMP 36.5; O2SAT 94
--- NOTE | 2024-01-26 09:25 | HO.PSYCHPN ---
Subjective Subjective Date of Service: 01/26/24 Reason For Visit: Schizoaffective disorder, unspecified type Subjective Notes: Section 8 Interim History: Pt slept through the night. He is visible at times during meals. He reports his roommate complaints too much.. and this is bothersome to him at times. He denies SI/HI. BP stable but on low side. oral intake stable, affect brighter but still in constricted range. No behavioral concerns. pending guardianship for placement. Review of Systems Review of Systems Constipation improving Yes all other systems are reviewed and are negative and Unobtainable due to mental status Mental Status Exam Mental Status Exam Narrative: Appearance: cachectic, malnourished, improved hygiene, in NAD Behavior: cooperative Psychomotor: retardation noted Speech: mostly clear, regular rate, more spontaneous TP: mostly linear, not much detail provided TC: wants to go home Mood: not assessed Affect: constricted SI: none expressed HI: none expressed VH/AH:none expressed Delusions: not overt reports. Insight/judgment: impaired x 2. Diagnostics Vital Signs (24Hr): Vital Signs - 24 hr 01/25/24 20:00 01/26/24 08:51 Temperature 98.3 F 97.7 F Pulse Rate 78 72 Respiratory Rate 16 18 Blood Pressure 100/67 90/55 L Pulse Oximetry 95 94 Oxygen Delivery Method Room Air Room Air BMI result Body Mass Index 17.7 Labs 01/18/24 08:02 01/18/24 08:02 Labs: Laboratory Results - last 48 hr 01/24/24 16:12 POC Glucose 169 H Imaging Radiology Impressions: ITS Impressions Chest X-Ray 11/14/23 15:16 IMPRESSION: No evidence of acute disease. No pulmonary mass, pneumonia or pleural effusion. Chest CT 12/21/23 14:32 IMPRESSION: 1. No focal infiltrate is seen. 2. A 4 mm noncalcified subpleural nodule is seen within the posterior segment of the right upper lobe. According to the UPDATED 2017 Fleischner Society recommendations, the advised follow-up imaging for solid nodules < 6 mm is: LOW RISK PATIENT: No routine follow-up. HIGH RISK PATIENT: Optional CT at 12 months. 3. There is no thoracic lymphadenopathy or pleural effusion. 4. There is a marked kyphoscoliosis. No acute or aggressive osseous lesion is seen. 5. There is mild cholelithiasis. Fleischner guidelines were followed. KUB X-Ray 01/17/24 10:57 IMPRESSION: Multiple prominent, distended air-filled loops of small and large bowel. [id number] amount of stool in the colon. Correlation with clinical exam recommended to determine further management including possible additional imaging with CT scan of the abdomen and pelvis if abdominal pathology is suspected. This study was presented today January 19, 2024 for interpretation. Stat results provided at this time as requested by referring provider. Medications Medications Current Medications Acetaminophen (Acetaminophen 325 Mg Tablet) 650 mg PO Q6H PRN PRN Reason: Headache/Pain Mild Scale (1-3) Last Admin: 01/05/24 21:11 Dose: 650 mg Al Hydroxide/Mg Hydroxide (Magnesium Hydrox/Alum Hydrox 30 Ml Oral.Susp) 30 ml PO Q6H PRN PRN Reason: Heartburn/Nausea Last Admin: 10/31/23 23:58 Dose: 30 ml Famotidine (Famotidine 20 Mg Tablet) 20 mg PO DAILY [facility] Last Admin: 01/26/24 08:42 Dose: 20 mg Loperamide HCl (Loperamide Hcl 2 Mg Capsule) 2 mg PO Q4H PRN PRN Reason: loose stools Last Admin: 01/13/24 15:22 Dose: 2 mg Magnesium Hydroxide (Milk Of Magnesia 30 Ml Oral.Susp) 30 ml PO DAILY PRN PRN Reason: Constipation Last Admin: 01/21/24 08:21 Dose: 30 ml Memantine (Memantine Hcl 5 Mg Tablet) 5 mg PO BID [facility] Last Admin: 01/26/24 08:42 Dose: 5 mg Mirtazapine (Mirtazapine 7.5 Mg Tablet) 7.5 mg PO BEDTIME YESY Last Admin: 01/25/24 20:54 Dose: 7.5 mg Modafinil (Modafinil 100 Mg Tablet) 50 mg PO DAILY [facility] Last Admin: 01/26/24 08:42 Dose: 50 mg Ondansetron HCl (Ondansetron Odt 4 Mg Tab.Rapdis) 4 mg TRANSLINGU Q8H PRN PRN Reason: Nausea and Vomiting Last Admin: 12/02/23 11:31 Dose: 4 mg Polyethylene Glycol (Polyethylene Glycol 3350 17 Gm Powd.Pack) 17 gm PO DAILY [facility] Last Admin: 01/26/24 08:46 Dose: Not Given Risperidone (Risperidone 2 Mg Tablet) 2 mg PO BEDTIME [facility] Last Admin: 01/25/24 20:54 Dose: 2 mg Senna (Sennosides 8.6 Mg Tablet) 8.6 mg PO BEDTIME YESY Last Admin: 01/25/24 20:54 Dose: 8.6 mg Trazodone HCl (Trazodone Hcl 50 Mg Tablet) 50 mg PO BEDTIME PRN PRN Reason: Insomnia Last Admin: 01/25/24 20:54 Dose: 50 mg Vortioxetine (Vortioxetine Hydrobromide 5 Mg Tablet) 5 mg PO DAILY [facility] Last Admin: 01/26/24 08:42 Dose: 5 mg Allergies Allergies Allergy/AdvReac Type Severity Reaction Status Date / Time omeprazole Allergy Unknown Verified 10/30/23 00:09 Assessment & Plan Assessment & Plan (1) Schizophrenia: Status: Acute Code(s): F20.9 - Schizophrenia, unspecified (2) Failure to thrive in adult: Status: Acute Code(s): R62.7 - Adult failure to thrive Plan The patient is a 63-year-old male with a past history of schizophrenia who had been in and out of several facilities in the last year with severe hypoactive behavior, catatonic like symptoms and chronic noncompliance who needed to go for Section 7 and 8 for ECT. Even though that he had been treated with antipsychotics he remains still internally preoccupied. Plan 01/22/2024: No changes to current plan. Will add MiraLax 01/22: no changes 01/23 continue tx 01/24 continue tx. 01/25 continue tx. Reason for continued inpatient stay Substantial Risk for: inability to function Time Spent With Patient Time: Total time managing care of this patient today ____ minutes.
--- NOTE | 2024-01-26 12:23 | MHC.CLN ---
F/U DIET=REGULAR. ENSURE TID PROVIDES 1050 KCALS, 60 G PROTEIN. PATIENT ACCEPTS SUPPLEMENT. ENSURE CLEAR TID PROVIDES 720 KCALS, 24 G PROTEIN. INTAKE USUALLY BITES OF FOOD AND SIPS/ACCEPTS ENSURE. NO RECENT SIGNIFICANT WEIGHT CHANGE. ENCOURAGE ADDITIONAL SNACKS AND SUPPLEMENTS FROM UNIT KITCHEN. CONTINUE CURRENT DIET, SUPPLEMENTS AND ENCOURAGE INTAKE ABLE.
[2024-01-26 19:55] VITALS: BP 100/64; PULSE 110; RESP 18; TEMP 36.4; O2SAT 97
[2024-01-26] MEDS: Mirtazapine 7.5 MG TABLET PO (20:21)
[2024-01-26] MEDS: risperiDONE 2 MG TABLET PO (20:21)
[2024-01-26] MEDS: Sennosides 8.6 MG TABLET PO (20:21)
[2024-01-26 23:07] VITALS: PULSE 97
[2024-01-27 07:00] VITALS: BMI 17.3
[2024-01-27 08:00] VITALS: BP 97/61; PULSE 74; RESP 18; TEMP 36.4; O2SAT 95
[2024-01-27] MEDS: Vortioxetine Hydrobromide 5 MG TABLET PO (08:56)
[2024-01-27] MEDS: modafiniL 100 MG TABLET 50 MG PO (08:56)
[2024-01-27] MEDS: Memantine HCl 5 MG TABLET PO ×2 (08:56→20:28)
[2024-01-27] MEDS: Famotidine 20 MG TABLET PO (08:56)
--- NOTE | 2024-01-27 11:29 | P.PNPSI_ITS ---
Subjective Subjective Date of Service: 01/27/24 Reason For Visit: Schizoaffective disorder, unspecified type Subjective Notes: Section 8 Interim History: Pt slept through the night. He is visible at times during meals. He reports his roommate complaints too much.. and this is bothersome to him at times. He denies SI/HI. BP stable but on low side. oral intake stable, affect brighter but still in constricted range. No behavioral concerns. pending guardianship for placement. Review of Systems Review of Systems Constipation improving Yes all other systems are reviewed and are negative and Unobtainable due to mental status Mental Status Exam Mental Status Exam Narrative: Appearance: thin, improved hygiene, in NAD Behavior: cooperative Psychomotor: no agitation nor retardation noted. Speech: mostly clear, regular rate, more spontaneous TP: mostly linear, not much detail provided TC: wants to go home Mood: not assessed Affect: constricted SI: none expressed HI: none expressed VH/AH:none expressed Delusions: not overt reports. Insight/judgment: impaired x 2. Diagnostics Vital Signs (24Hr): Vital Signs - 24 hr 01/26/24 19:55 01/26/24 23:07 01/27/24 08:00 Temperature 97.5 F 97.5 F Pulse Rate 110 H 97 74 Respiratory Rate 18 18 Blood Pressure 100/64 97/61 Pulse Oximetry 97 95 Oxygen Delivery Method Room Air Room Air BMI result Body Mass Index 17.3 Labs 01/18/24 08:02 01/18/24 08:02 Imaging Radiology Impressions: ITS Impressions Chest X-Ray 11/14/23 15:16 IMPRESSION: No evidence of acute disease. No pulmonary mass, pneumonia or pleural effusion. Chest CT 12/21/23 14:32 IMPRESSION: 1. No focal infiltrate is seen. 2. A 4 mm noncalcified subpleural nodule is seen within the posterior segment of the right upper lobe. According to the UPDATED 2017 Fleischner Society recommendations, the advised follow-up imaging for solid nodules < 6 mm is: LOW RISK PATIENT: No routine follow-up. HIGH RISK PATIENT: Optional CT at 12 months. 3. There is no thoracic lymphadenopathy or pleural effusion. 4. There is a marked kyphoscoliosis. No acute or aggressive osseous lesion is seen. 5. There is mild cholelithiasis. Fleischner guidelines were followed. KUB X-Ray 01/17/24 10:57 IMPRESSION: Multiple prominent, distended air-filled loops of small and large bowel. [id number] amount of stool in the colon. Correlation with clinical exam recommended to determine further management including possible additional imaging with CT scan of the abdomen and pelvis if abdominal pathology is suspected. This study was presented today January 19, 2024 for interpretation. Stat results provided at this time as requested by referring provider. Medications Medications Current Medications Acetaminophen (Acetaminophen 325 Mg Tablet) 650 mg PO Q6H PRN PRN Reason: Headache/Pain Mild Scale (1-3) Last Admin: 01/05/24 21:11 Dose: 650 mg Al Hydroxide/Mg Hydroxide (Magnesium Hydrox/Alum Hydrox 30 Ml Oral.Susp) 30 ml PO Q6H PRN PRN Reason: Heartburn/Nausea Last Admin: 10/31/23 23:58 Dose: 30 ml Famotidine (Famotidine 20 Mg Tablet) 20 mg PO DAILY [facility] [place] Last Admin: 01/27/24 08:56 Dose: 20 mg Loperamide HCl (Loperamide Hcl 2 Mg Capsule) 2 mg PO Q4H PRN PRN Reason: loose stools Last Admin: 01/13/24 15:22 Dose: 2 mg Magnesium Hydroxide (Milk Of Magnesia 30 Ml Oral.Susp) 30 ml PO DAILY PRN PRN Reason: Constipation Last Admin: 01/21/24 08:21 Dose: 30 ml Memantine (Memantine Hcl 5 Mg Tablet) 5 mg PO BID [facility] [place] Last Admin: 01/27/24 08:56 Dose: 5 mg Mirtazapine (Mirtazapine 7.5 Mg Tablet) 7.5 mg PO BEDTIME YESY Last Admin: 01/26/24 20:21 Dose: 7.5 mg Modafinil (Modafinil 100 Mg Tablet) 50 mg PO DAILY [facility] [place] Last Admin: 01/27/24 08:56 Dose: 50 mg Ondansetron HCl (Ondansetron Odt 4 Mg Tab.Rapdis) 4 mg TRANSLINGU Q8H PRN PRN Reason: Nausea and Vomiting Last Admin: 12/02/23 11:31 Dose: 4 mg Polyethylene Glycol (Polyethylene Glycol 3350 17 Gm Powd.Pack) 17 gm PO DAILY [facility] [place] Last Admin: 01/27/24 08:57 Dose: Not Given Risperidone (Risperidone 2 Mg Tablet) 2 mg PO BEDTIME YESY Last Admin: 01/26/24 20:21 Dose: 2 mg Senna (Sennosides 8.6 Mg Tablet) 8.6 mg PO BEDTIME YESY Last Admin: 01/26/24 20:21 Dose: 8.6 mg Trazodone HCl (Trazodone Hcl 50 Mg Tablet) 50 mg PO BEDTIME PRN PRN Reason: Insomnia Last Admin: 01/25/24 20:54 Dose: 50 mg Vortioxetine (Vortioxetine Hydrobromide 5 Mg Tablet) 5 mg PO DAILY [facility] Last Admin: 01/27/24 08:56 Dose: 5 mg Allergies Allergies Allergy/AdvReac Type Severity Reaction Status Date / Time omeprazole Allergy Unknown Verified 10/30/23 00:09 Assessment & Plan Assessment & Plan (1) Schizophrenia: Status: Acute Code(s): F20.9 - Schizophrenia, unspecified (2) Failure to thrive in adult: Status: Acute Code(s): R62.7 - Adult failure to thrive Plan The patient is a 63-year-old male with a past history of schizophrenia who had been in and out of several facilities in the last year with severe hypoactive behavior, catatonic like symptoms and chronic noncompliance who needed to go for Section 7 and 8 for ECT. Even though that he had been treated with antipsychotics he remains still internally preoccupied. Plan 01/22/2024: No changes to current plan. Will add MiraLax 01/22: no changes 01/23 continue tx 01/24 continue tx. 01/25 continue tx 01/26 continue tx. Reason for continued inpatient stay Substantial Risk for: inability to function Time Spent With Patient Time: Total time managing care of this patient today ____ minutes.
[2024-01-27] MEDS: Milk of Magnesia 30 ML ORAL.SUSP PO (16:36)
[2024-01-27 19:53] VITALS: BP 92/62; PULSE 88; RESP 16; TEMP 36.6; O2SAT 98
[2024-01-27] MEDS: Mirtazapine 7.5 MG TABLET PO (20:28)
[2024-01-27] MEDS: risperiDONE 2 MG TABLET PO (20:28)
[2024-01-27] MEDS: Sennosides 8.6 MG TABLET PO (20:29)
[2024-01-28 08:00] VITALS: BP 108/76; PULSE 94; RESP 18; TEMP 36.4; O2SAT 95
[2024-01-28] MEDS: modafiniL 100 MG TABLET 50 MG PO (08:51)
[2024-01-28] MEDS: Famotidine 20 MG TABLET PO (08:51)
[2024-01-28] MEDS: Vortioxetine Hydrobromide 5 MG TABLET PO (08:51)
[2024-01-28] MEDS: Memantine HCl 5 MG TABLET PO ×2 (08:51→20:44)
[2024-01-28] MEDS: polyethylene glycoL 3350 17 GM POWD.PACK PO (08:51)
--- NOTE | 2024-01-28 11:50 | P.PNPSI_ITS ---
Subjective Subjective Date of Service: 01/28/24 Reason For Visit: Schizoaffective disorder, unspecified type Subjective Notes: Section 8 Interim History: Pt slept through the night. He is visible at times during meals. He was not as talkative today but was up walking around the unit. He reports difficulty seeing, blurry vision which he reports it has been going for a long time. He has not had ophthalmology appointment in years. Review of Systems Review of Systems Constipation improving Yes all other systems are reviewed and are negative and Unobtainable due to mental status Mental Status Exam Mental Status Exam Narrative: Appearance: thin, improved hygiene, in NAD Behavior: cooperative Psychomotor: no agitation nor retardation noted. Speech: mostly clear, regular rate, more spontaneous TP: mostly linear, not much detail provided TC: wants to go home Mood: not assessed Affect: constricted SI: none expressed HI: none expressed VH/AH:none expressed Delusions: not overt reports. Insight/judgment: impaired x 2. Diagnostics Vital Signs (24Hr): Vital Signs - 24 hr 01/27/24 19:53 01/28/24 08:00 Temperature 97.8 F 97.5 F Pulse Rate 88 94 Respiratory Rate 16 18 Blood Pressure 92/62 108/76 Pulse Oximetry 98 95 Oxygen Delivery Method Room Air Room Air BMI result Body Mass Index 17.3 Labs 01/18/24 08:02 01/18/24 08:02 Imaging Radiology Impressions: ITS Impressions Chest X-Ray 11/14/23 15:16 IMPRESSION: No evidence of acute disease. No pulmonary mass, pneumonia or pleural effusion. Chest CT 12/21/23 14:32 IMPRESSION: 1. No focal infiltrate is seen. 2. A 4 mm noncalcified subpleural nodule is seen within the posterior segment of the right upper lobe. According to the UPDATED 2017 Fleischner Society recommendations, the advised follow-up imaging for solid nodules < 6 mm is: LOW RISK PATIENT: No routine follow-up. HIGH RISK PATIENT: Optional CT at 12 months. 3. There is no thoracic lymphadenopathy or pleural effusion. 4. There is a marked kyphoscoliosis. No acute or aggressive osseous lesion is seen. 5. There is mild cholelithiasis. Fleischner guidelines were followed. KUB X-Ray 01/17/24 10:57 IMPRESSION: Multiple prominent, distended air-filled loops of small and large bowel. [id number] amount of stool in the colon. Correlation with clinical exam recommended to determine further management including possible additional imaging with CT scan of the abdomen and pelvis if abdominal pathology is suspected. This study was presented today January 19, 2024 for interpretation. Stat results provided at this time as requested by referring provider. Medications Medications Current Medications Famotidine (Famotidine 20 Mg Tablet) 20 mg PO DAILY [facility] Last Admin: 01/28/24 08:51 Dose: 20 mg Loperamide HCl (Loperamide Hcl 2 Mg Capsule) 2 mg PO Q4H PRN PRN Reason: loose stools Last Admin: 01/13/24 15:22 Dose: 2 mg Memantine (Memantine Hcl 5 Mg Tablet) 5 mg PO BID [facility] Last Admin: 01/28/24 08:51 Dose: 5 mg Mirtazapine (Mirtazapine 7.5 Mg Tablet) 7.5 mg PO BEDTIME [facility] Last Admin: 01/27/24 20:28 Dose: 7.5 mg Modafinil (Modafinil 100 Mg Tablet) 50 mg PO DAILY [facility] Last Admin: 01/28/24 08:51 Dose: 50 mg Ondansetron HCl (Ondansetron Odt 4 Mg Tab.Rapdis) 4 mg TRANSLINGU Q8H PRN PRN Reason: Nausea and Vomiting Last Admin: 12/02/23 11:31 Dose: 4 mg Polyethylene Glycol (Polyethylene Glycol 3350 17 Gm Powd.Pack) 17 gm PO DAILY [facility] Last Admin: 01/28/24 08:51 Dose: 17 gm Risperidone (Risperidone 2 Mg Tablet) 2 mg PO BEDTIME [facility] Last Admin: 01/27/24 20:28 Dose: 2 mg Senna (Sennosides 8.6 Mg Tablet) 8.6 mg PO BEDTIME YESY Last Admin: 01/27/24 20:29 Dose: 8.6 mg Trazodone HCl (Trazodone Hcl 50 Mg Tablet) 50 mg PO BEDTIME PRN PRN Reason: Insomnia Last Admin: 01/25/24 20:54 Dose: 50 mg Vortioxetine (Vortioxetine Hydrobromide 5 Mg Tablet) 5 mg PO DAILY [facility] Last Admin: 01/28/24 08:51 Dose: 5 mg Allergies Allergies Allergy/AdvReac Type Severity Reaction Status Date / Time omeprazole Allergy Unknown Verified 10/30/23 00:09 Assessment & Plan Assessment & Plan (1) Schizophrenia: Status: Acute Code(s): F20.9 - Schizophrenia, unspecified (2) Failure to thrive in adult: Status: Acute Code(s): R62.7 - Adult failure to thrive Plan The patient is a 63-year-old male with a past history of schizophrenia who had been in and out of several facilities in the last year with severe hypoactive behavior, catatonic like symptoms and chronic noncompliance who needed to go for Section 7 and 8 for ECT. Even though that he had been treated with antipsychotics he remains still internally preoccupied. Plan 01/22/2024: No changes to current plan. Will add MiraLax 01/22: no changes 01/23 continue tx 01/24 continue tx. 01/25 continue tx 01/27 continue tx. Reason for continued inpatient stay Substantial Risk for: inability to function Time Spent With Patient Time: Total time managing care of this patient today ____ minutes.
[2024-01-28 20:00] VITALS: BP 103/63; PULSE 84; RESP 16; TEMP 37.2; O2SAT 95
[2024-01-28] MEDS: traZODone HCL 50 MG TABLET PO (20:45)
[2024-01-28] MEDS: Mirtazapine 7.5 MG TABLET PO (20:45)
[2024-01-28] MEDS: Sennosides 8.6 MG TABLET PO (20:45)
[2024-01-28] MEDS: risperiDONE 2 MG TABLET PO (20:45)
[2024-01-29 08:00] VITALS: BP 107/76; PULSE 84; RESP 16; TEMP 37; O2SAT 98
[2024-01-29] MEDS: Memantine HCl 5 MG TABLET PO ×2 (08:14→20:49)
[2024-01-29] MEDS: Vortioxetine Hydrobromide 5 MG TABLET PO (08:14)
[2024-01-29] MEDS: Famotidine 20 MG TABLET PO (08:15)
[2024-01-29] MEDS: polyethylene glycoL 3350 17 GM POWD.PACK PO (08:15)
[2024-01-29] MEDS: modafiniL 100 MG TABLET 50 MG PO (08:15)
--- NOTE | 2024-01-29 12:37 | P.PNPSI_ITS ---
Subjective Subjective Date of Service: 01/29/24 Reason For Visit: Schizoaffective disorder, unspecified type Subjective Notes: Section 8 Interim History: Patient was seen and discussed in rounds today. Records and plans were reviewed. He continues to be mostly in bed, taking bites of food. He does come out for meals. He does respond at times. The benefits of ECT have pretty much dissipated. Review of Systems Review of Systems Yes all other systems are reviewed and are negative Mental Status Exam Mental Status Exam Narrative: In today's visit he is alert and minimally responsive. Soft-spoken speech. No eye contact. Affect is subdued. Appears depressed. No signs of psychosis. No SI. Cognitively he has slowed thought processes Diagnostics Vital Signs (24Hr): Vital Signs - 24 hr 01/28/24 20:00 01/29/24 08:00 Temperature 98.9 F 98.6 F Pulse Rate 84 84 Respiratory Rate 16 16 Blood Pressure 103/63 107/76 Pulse Oximetry 95 98 Oxygen Delivery Method Room Air Room Air BMI result Body Mass Index 17.3 Labs 01/18/24 08:02 01/18/24 08:02 Imaging Radiology Impressions: ITS Impressions Chest X-Ray 11/14/23 15:16 IMPRESSION: No evidence of acute disease. No pulmonary mass, pneumonia or pleural effusion. Chest CT 12/21/23 14:32 IMPRESSION: 1. No focal infiltrate is seen. 2. A 4 mm noncalcified subpleural nodule is seen within the posterior segment of the right upper lobe. According to the UPDATED 2017 Fleischner Society recommendations, the advised follow-up imaging for solid nodules < 6 mm is: LOW RISK PATIENT: No routine follow-up. HIGH RISK PATIENT: Optional CT at 12 months. 3. There is no thoracic lymphadenopathy or pleural effusion. 4. There is a marked kyphoscoliosis. No acute or aggressive osseous lesion is seen. 5. There is mild cholelithiasis. Fleischner guidelines were followed. KUB X-Ray 01/17/24 10:57 IMPRESSION: Multiple prominent, distended air-filled loops of small and large bowel. [id number] amount of stool in the colon. Correlation with clinical exam recommended to determine further management including possible additional imaging with CT scan of the abdomen and pelvis if abdominal pathology is suspected. This study was presented today January 19, 2024 for interpretation. Stat results provided at this time as requested by referring provider. Medications Medications Current Medications Famotidine (Famotidine 20 Mg Tablet) 20 mg PO DAILY [facility] Last Admin: 01/29/24 08:15 Dose: 20 mg Loperamide HCl (Loperamide Hcl 2 Mg Capsule) 2 mg PO Q4H PRN PRN Reason: loose stools Last Admin: 01/13/24 15:22 Dose: 2 mg Memantine (Memantine Hcl 5 Mg Tablet) 5 mg PO BID [facility] Last Admin: 01/29/24 08:14 Dose: 5 mg Mirtazapine (Mirtazapine 7.5 Mg Tablet) 7.5 mg PO BEDTIME YESY Last Admin: 01/28/24 20:45 Dose: 7.5 mg Modafinil (Modafinil 100 Mg Tablet) 50 mg PO DAILY [facility] Last Admin: 01/29/24 08:15 Dose: 50 mg Ondansetron HCl (Ondansetron Odt 4 Mg Tab.Rapdis) 4 mg TRANSLINGU Q8H PRN PRN Reason: Nausea and Vomiting Last Admin: 12/02/23 11:31 Dose: 4 mg Polyethylene Glycol (Polyethylene Glycol 3350 17 Gm Powd.Pack) 17 gm PO DAILY [facility] Last Admin: 01/29/24 08:15 Dose: 17 gm Risperidone (Risperidone 2 Mg Tablet) 2 mg PO BEDTIME YESY Last Admin: 01/28/24 20:45 Dose: 2 mg Senna (Sennosides 8.6 Mg Tablet) 8.6 mg PO BEDTIME YESY Last Admin: 01/28/24 20:45 Dose: 8.6 mg Vortioxetine (Vortioxetine Hydrobromide 5 Mg Tablet) 5 mg PO DAILY [facility] Last Admin: 01/29/24 08:14 Dose: 5 mg Allergies Allergies Allergy/AdvReac Type Severity Reaction Status Date / Time omeprazole Allergy Unknown Verified 10/30/23 00:09 Assessment & Plan Assessment & Plan (1) Schizophrenia: Status: Acute Code(s): F20.9 - Schizophrenia, unspecified (2) Failure to thrive in adult: Status: Acute Code(s): R62.7 - Adult failure to thrive Plan The patient is a 63-year-old male with a past history of schizophrenia who had been in and out of several facilities in the last year with severe hypoactive behavior, catatonic like symptoms and chronic noncompliance who needed to go for Section 7 and 8 for ECT. Even though that he had been treated with antipsychotics he remains still internally preoccupied. Plan 01/22/2024: No changes to current plan. Will add MiraLax 01/22: no changes 01/23 continue tx 01/24 continue tx. 01/25 continue tx 01/27 continue tx. 01/28: Continue current regimen and plans Reason for continued inpatient stay Substantial Risk for: inability to function Time Spent With Patient Time: Total time managing care of this patient today ____ minutes.
[2024-01-29 20:00] VITALS: BP 105/62; PULSE 85; RESP 16; TEMP 37.1; O2SAT 96
[2024-01-29] MEDS: Mirtazapine 7.5 MG TABLET PO (20:49)
[2024-01-29] MEDS: Sennosides 8.6 MG TABLET PO (20:49)
[2024-01-29] MEDS: risperiDONE 2 MG TABLET PO (20:49)
[2024-01-30] MEDS: Memantine HCl 5 MG TABLET PO ×2 (07:35→20:03)
[2024-01-30] MEDS: Famotidine 20 MG TABLET PO (07:35)
[2024-01-30] MEDS: modafiniL 100 MG TABLET 50 MG PO (07:35)
[2024-01-30] MEDS: Vortioxetine Hydrobromide 5 MG TABLET PO (07:35)
[2024-01-30] MEDS: polyethylene glycoL 3350 17 GM POWD.PACK PO (07:36)
[2024-01-30 07:39] VITALS: BP 95/73; PULSE 87; RESP 16; TEMP 37.3; O2SAT 96
--- NOTE | 2024-01-30 10:04 | P.PNPSI_ITS ---
Subjective Subjective Date of Service: 01/30/24 Reason For Visit: Schizoaffective disorder, unspecified type Subjective Notes: Section 8 Interim History: Patient was seen and discussed in rounds today. Records and plans were reviewed. He is eating minimally and only using ensure. There is some improvement in his intake though. Poor ADLs. No changes were made today Review of Systems Review of Systems Yes all other systems are reviewed and are negative Mental Status Exam Mental Status Exam Narrative: In today's visit he is alert and minimally responsive. Soft-spoken speech. No eye contact. Affect is subdued. Appears depressed. No signs of psychosis. No SI. Cognitively he has slowed thought processes Diagnostics Vital Signs (24Hr): Vital Signs - 24 hr 01/29/24 20:00 01/30/24 07:39 Temperature 98.7 F 99.1 F Pulse Rate 85 87 Respiratory Rate 16 16 Blood Pressure 105/62 95/73 Pulse Oximetry 96 96 Oxygen Delivery Method Room Air Room Air BMI result Body Mass Index 17.3 Labs 01/18/24 08:02 01/18/24 08:02 Imaging Radiology Impressions: ITS Impressions Chest X-Ray 11/14/23 15:16 IMPRESSION: No evidence of acute disease. No pulmonary mass, pneumonia or pleural effusion. Chest CT 12/21/23 14:32 IMPRESSION: 1. No focal infiltrate is seen. 2. A 4 mm noncalcified subpleural nodule is seen within the posterior segment of the right upper lobe. According to the UPDATED 2017 Fleischner Society recommendations, the advised follow-up imaging for solid nodules < 6 mm is: LOW RISK PATIENT: No routine follow-up. HIGH RISK PATIENT: Optional CT at 12 months. 3. There is no thoracic lymphadenopathy or pleural effusion. 4. There is a marked kyphoscoliosis. No acute or aggressive osseous lesion is seen. 5. There is mild cholelithiasis. Fleischner guidelines were followed. KUB X-Ray 01/17/24 10:57 IMPRESSION: Multiple prominent, distended air-filled loops of small and large bowel. [id number]-sb-[id number] amount of stool in the colon. Correlation with clinical exam recommended to determine further management including possible additional imaging with CT scan of the abdomen and pelvis if abdominal pathology is suspected. This study was presented today January 19, 2024 for interpretation. Stat results provided at this time as requested by referring provider. Medications Medications Current Medications Famotidine (Famotidine 20 Mg Tablet) 20 mg PO DAILY [facility] Last Admin: 01/30/24 07:35 Dose: 20 mg Loperamide HCl (Loperamide Hcl 2 Mg Capsule) 2 mg PO Q4H PRN PRN Reason: loose stools Last Admin: 01/13/24 15:22 Dose: 2 mg Memantine (Memantine Hcl 5 Mg Tablet) 5 mg PO BID [facility] Last Admin: 01/30/24 07:35 Dose: 5 mg Mirtazapine (Mirtazapine 7.5 Mg Tablet) 7.5 mg PO BEDTIME [facility] Last Admin: 01/29/24 20:49 Dose: 7.5 mg Modafinil (Modafinil 100 Mg Tablet) 50 mg PO DAILY [facility] Last Admin: 01/30/24 07:35 Dose: 50 mg Ondansetron HCl (Ondansetron Odt 4 Mg Tab.Rapdis) 4 mg TRANSLINGU Q8H PRN PRN Reason: Nausea and Vomiting Last Admin: 12/02/23 11:31 Dose: 4 mg Polyethylene Glycol (Polyethylene Glycol 3350 17 Gm Powd.Pack) 17 gm PO DAILY [facility] Last Admin: 01/30/24 07:36 Dose: 17 gm Risperidone (Risperidone 2 Mg Tablet) 2 mg PO BEDTIME [facility] Last Admin: 01/29/24 20:49 Dose: 2 mg Senna (Sennosides 8.6 Mg Tablet) 8.6 mg PO BEDTIME [facility] Last Admin: 01/29/24 20:49 Dose: 8.6 mg Vortioxetine (Vortioxetine Hydrobromide 5 Mg Tablet) 5 mg PO DAILY [facility] Last Admin: 01/30/24 07:35 Dose: 5 mg Allergies Allergies Allergy/AdvReac Type Severity Reaction Status Date / Time omeprazole Allergy Unknown Verified 10/30/23 00:09 Assessment & Plan Assessment & Plan (1) Schizophrenia: Status: Acute Code(s): F20.9 - Schizophrenia, unspecified (2) Failure to thrive in adult: Status: Acute Code(s): R62.7 - Adult failure to thrive Plan The patient is a 63-year-old male with a past history of schizophrenia who had been in and out of several facilities in the last year with severe hypoactive behavior, catatonic like symptoms and chronic noncompliance who needed to go for [facility] 7 and 8 for ECT. Even though that he had been treated with antipsychotics he remains still internally preoccupied. Plan 01/22/2024: No changes to current plan. Will add MiraLax 01/22: no changes 01/23 continue tx 01/24 continue tx. 01/25 continue tx 01/27 continue tx. 01/28: Continue current regimen and plans 01/29: Continue current regimen and plans. Reason for continued inpatient stay Substantial Risk for: inability to function Time Spent With Patient Time: Total time managing care of this patient today ____ minutes.
[2024-01-30] MEDS: risperiDONE 2 MG TABLET PO (20:03)
[2024-01-30] MEDS: Mirtazapine 7.5 MG TABLET PO (20:03)
[2024-01-30] MEDS: Sennosides 8.6 MG TABLET PO (20:03)
[2024-01-30 20:05] VITALS: BP 100/57; PULSE 86; RESP 16; TEMP 36.2; O2SAT 95
[2024-01-31 08:00] VITALS: BP 106/72; PULSE 72; RESP 18; TEMP 36.6; O2SAT 94
[2024-01-31] MEDS: Famotidine 20 MG TABLET PO (08:30)
[2024-01-31] MEDS: Memantine HCl 5 MG TABLET PO ×2 (08:30→20:06)
[2024-01-31] MEDS: Vortioxetine Hydrobromide 5 MG TABLET PO (08:30)
[2024-01-31] MEDS: modafiniL 100 MG TABLET 50 MG PO (08:37)
--- NOTE | 2024-01-31 11:43 | HO.PSYCHPN ---
Subjective Subjective Date of Service: 01/31/24 Reason For Visit: Schizoaffective disorder, unspecified type Subjective Notes: Section 8 Interim History: Pt slept through the night. No behavioral concerns. Pt more visible, not overly talkative, nor social. No SI/HI. eating mostly ensure. weight stable. Review of Systems Review of Systems Constipation improving Yes all other systems are reviewed and are negative and Unobtainable due to mental status Mental Status Exam Mental Status Exam Patient Appearance: Appropriate Patient Orientation: Person and Situation Level of Consciousness: Awake Patient Behavior: Guarded and Passive Mood Description: Withdrawn Affect Description: Blunted Patient Cognition Impaired: Yes Ability to Follow Directions: Good Speech Pattern: Clear Diagnostics Vital Signs (24Hr): Vital Signs - 24 hr 01/30/24 20:05 01/31/24 08:00 Temperature 97.2 F 97.8 F Pulse Rate 86 72 Respiratory Rate 16 18 Blood Pressure 100/57 L 106/72 Pulse Oximetry 95 94 Oxygen Delivery Method Room Air Room Air BMI result Body Mass Index 17.3 Labs 01/18/24 08:02 01/18/24 08:02 Imaging Radiology Impressions: ITS Impressions Chest X-Ray 11/14/23 15:16 IMPRESSION: No evidence of acute disease. No pulmonary mass, pneumonia or pleural effusion. Chest CT 12/21/23 14:32 IMPRESSION: 1. No focal infiltrate is seen. 2. A 4 mm noncalcified subpleural nodule is seen within the posterior segment of the right upper lobe. According to the UPDATED 2017 Fleischner Society recommendations, the advised follow-up imaging for solid nodules < 6 mm is: LOW RISK PATIENT: No routine follow-up. HIGH RISK PATIENT: Optional CT at 12 months. 3. There is no thoracic lymphadenopathy or pleural effusion. 4. There is a marked kyphoscoliosis. No acute or aggressive osseous lesion is seen. 5. There is mild cholelithiasis. Fleischner guidelines were followed. KUB X-Ray 01/17/24 10:57 IMPRESSION: Multiple prominent, distended air-filled loops of small and large bowel. Hypqpftr-av-wixud amount of stool in the colon. Correlation with clinical exam recommended to determine further management including possible additional imaging with CT scan of the abdomen and pelvis if abdominal pathology is suspected. This study was presented today January 19, 2024 for interpretation. Stat results provided at this time as requested by referring provider. Medications Medications Current Medications Famotidine (Famotidine 20 Mg Tablet) 20 mg PO DAILY [facility] Last Admin: 01/31/24 08:30 Dose: 20 mg Loperamide HCl (Loperamide Hcl 2 Mg Capsule) 2 mg PO Q4H PRN PRN Reason: loose stools Last Admin: 01/13/24 15:22 Dose: 2 mg Memantine (Memantine Hcl 5 Mg Tablet) 5 mg PO BID [facility] Last Admin: 01/31/24 08:30 Dose: 5 mg Mirtazapine (Mirtazapine 7.5 Mg Tablet) 7.5 mg PO BEDTIME [facility] Last Admin: 01/30/24 20:03 Dose: 7.5 mg Modafinil (Modafinil 100 Mg Tablet) 50 mg PO DAILY [facility] Last Admin: 01/31/24 08:37 Dose: 50 mg Ondansetron HCl (Ondansetron Odt 4 Mg Tab.Rapdis) 4 mg TRANSLINGU Q8H PRN PRN Reason: Nausea and Vomiting Last Admin: 12/02/23 11:31 Dose: 4 mg Polyethylene Glycol (Polyethylene Glycol 3350 17 Gm Powd.Pack) 17 gm PO DAILY [facility] Last Admin: 01/31/24 08:34 Dose: Not Given Risperidone (Risperidone 2 Mg Tablet) 2 mg PO BEDTIME [facility] Last Admin: 01/30/24 20:03 Dose: 2 mg Senna (Sennosides 8.6 Mg Tablet) 8.6 mg PO BEDTIME [facility] Last Admin: 01/30/24 20:03 Dose: 8.6 mg Vortioxetine (Vortioxetine Hydrobromide 5 Mg Tablet) 5 mg PO DAILY [facility] Last Admin: 01/31/24 08:30 Dose: 5 mg Allergies Allergies Allergy/AdvReac Type Severity Reaction Status Date / Time omeprazole Allergy Unknown Verified 10/30/23 00:09 Assessment & Plan Assessment & Plan (1) Schizophrenia: Status: Acute Code(s): F20.9 - Schizophrenia, unspecified (2) Failure to thrive in adult: Status: Acute Code(s): R62.7 - Adult failure to thrive Plan The patient is a 63-year-old male with a past history of schizophrenia who had been in and out of several facilities in the last year with severe hypoactive behavior, catatonic like symptoms and chronic noncompliance who needed to go for [facility] 7 and 8 for ECT. Even though that he had been treated with antipsychotics he remains still internally preoccupied. Plan 01/22/2024: No changes to current plan. Will add MiraLax 01/22: no changes 01/23 continue tx 01/24 continue tx. 01/25 continue tx 01/27 continue tx. 01/28: Continue current regimen and plans 01/29: Continue current regimen and plans. 01/30 continue tx. awaiting guardianship. Reason for continued inpatient stay Substantial Risk for: inability to function Time Spent With Patient Time: Total time managing care of this patient today ____ minutes.
[2024-01-31 20:00] VITALS: BP 84/54; PULSE 67; RESP 16; TEMP 36.7; O2SAT 95
[2024-01-31] MEDS: risperiDONE 2 MG TABLET PO (20:06)
[2024-01-31] MEDS: Mirtazapine 7.5 MG TABLET PO (20:06)
[2024-01-31] MEDS: Sennosides 8.6 MG TABLET PO (20:06)
[2024-02-01 08:00] VITALS: BP 97/58; PULSE 93; RESP 17; O2SAT 94
[2024-02-01] MEDS: Vortioxetine Hydrobromide 5 MG TABLET PO (08:15)
[2024-02-01] MEDS: Memantine HCl 5 MG TABLET PO ×2 (08:15→20:12)
[2024-02-01] MEDS: Famotidine 20 MG TABLET PO (08:15)
[2024-02-01] MEDS: polyethylene glycoL 3350 17 GM POWD.PACK PO (08:15)
[2024-02-01] MEDS: modafiniL 100 MG TABLET 50 MG PO (09:20)
[2024-02-01] MEDS: Sennosides 8.6 MG TABLET PO (20:12)
[2024-02-01] MEDS: Mirtazapine 7.5 MG TABLET PO (20:12)
[2024-02-01] MEDS: risperiDONE 2 MG TABLET PO (20:12)
[2024-02-01 20:23] VITALS: BP 102/63; PULSE 94; RESP 18; TEMP 36.8; O2SAT 95
[2024-02-02 08:00] VITALS: BP 102/74; PULSE 108; RESP 18; TEMP 36.9; O2SAT 93
[2024-02-02] MEDS: Famotidine 20 MG TABLET PO (08:57)
[2024-02-02] MEDS: polyethylene glycoL 3350 17 GM POWD.PACK PO (08:57)
[2024-02-02] MEDS: modafiniL 100 MG TABLET 50 MG PO (08:57)
[2024-02-02] MEDS: Memantine HCl 5 MG TABLET PO ×2 (08:57→20:59)
[2024-02-02] MEDS: Vortioxetine Hydrobromide 5 MG TABLET PO (08:57)
[2024-02-02 09:00] VITALS: PULSE 91
--- NOTE | 2024-02-02 09:05 | HO.PSYCHPN ---
Subjective Subjective Date of Service: 02/01/24 Reason For Visit: Schizoaffective disorder, unspecified type Subjective Notes: Section 8 Interim History: Pt slept through the night. No behavioral concerns. Pt more visible, not overly talkative, nor social. No SI/HI. eating mostly ensure. weight stable. Review of Systems Review of Systems Constipation improving Yes all other systems are reviewed and are negative and Unobtainable due to mental status Mental Status Exam Mental Status Exam Patient Appearance: Appropriate Patient Orientation: Person and Situation Level of Consciousness: Awake Patient Behavior: Guarded and Passive Mood Description: Withdrawn Affect Description: Blunted Patient Cognition Impaired: Yes Ability to Follow Directions: Good Speech Pattern: Clear Diagnostics Vital Signs (24Hr): Vital Signs - 24 hr 02/01/24 20:23 Temperature 98.3 F Pulse Rate 94 Respiratory Rate 18 Blood Pressure 102/63 Pulse Oximetry 95 Oxygen Delivery Method Room Air BMI result Body Mass Index 17.3 Labs 01/18/24 08:02 01/18/24 08:02 Imaging Radiology Impressions: ITS Impressions Chest X-Ray 11/14/23 15:16 IMPRESSION: No evidence of acute disease. No pulmonary mass, pneumonia or pleural effusion. Chest CT 12/21/23 14:32 IMPRESSION: 1. No focal infiltrate is seen. 2. A 4 mm noncalcified subpleural nodule is seen within the posterior segment of the right upper lobe. According to the UPDATED 2017 Fleischner Society recommendations, the advised follow-up imaging for solid nodules < 6 mm is: LOW RISK PATIENT: No routine follow-up. HIGH RISK PATIENT: Optional CT at 12 months. 3. There is no thoracic lymphadenopathy or pleural effusion. 4. There is a marked kyphoscoliosis. No acute or aggressive osseous lesion is seen. 5. There is mild cholelithiasis. Fleischner guidelines were followed. KUB X-Ray 01/17/24 10:57 IMPRESSION: Multiple prominent, distended air-filled loops of small and large bowel. Fueaqaii-od-utric amount of stool in the colon. Correlation with clinical exam recommended to determine further management including possible additional imaging with CT scan of the abdomen and pelvis if abdominal pathology is suspected. This study was presented today January 19, 2024 for interpretation. Stat results provided at this time as requested by referring provider. Medications Medications Current Medications Famotidine (Famotidine 20 Mg Tablet) 20 mg PO DAILY [facility] Last Admin: 02/02/24 08:57 Dose: 20 mg Loperamide HCl (Loperamide Hcl 2 Mg Capsule) 2 mg PO Q4H PRN PRN Reason: loose stools Last Admin: 01/13/24 15:22 Dose: 2 mg Memantine (Memantine Hcl 5 Mg Tablet) 5 mg PO BID [facility] Last Admin: 02/02/24 08:57 Dose: 5 mg Mirtazapine (Mirtazapine 7.5 Mg Tablet) 7.5 mg PO BEDTIME [facility] Last Admin: 02/01/24 20:12 Dose: 7.5 mg Modafinil (Modafinil 100 Mg Tablet) 50 mg PO DAILY [facility] Last Admin: 02/02/24 08:57 Dose: 50 mg Ondansetron HCl (Ondansetron Odt 4 Mg Tab.Rapdis) 4 mg TRANSLINGU Q8H PRN PRN Reason: Nausea and Vomiting Last Admin: 12/02/23 11:31 Dose: 4 mg Polyethylene Glycol (Polyethylene Glycol 3350 17 Gm Powd.Pack) 17 gm PO DAILY [facility] Last Admin: 02/02/24 08:57 Dose: 17 gm Risperidone (Risperidone 2 Mg Tablet) 2 mg PO BEDTIME [facility] Last Admin: 02/01/24 20:12 Dose: 2 mg Senna (Sennosides 8.6 Mg Tablet) 8.6 mg PO BEDTIME [facility] Last Admin: 02/01/24 20:12 Dose: 8.6 mg Vortioxetine (Vortioxetine Hydrobromide 5 Mg Tablet) 5 mg PO DAILY [facility] Last Admin: 02/02/24 08:57 Dose: 5 mg Allergies Allergies Allergy/AdvReac Type Severity Reaction Status Date / Time omeprazole Allergy Unknown Verified 10/30/23 00:09 Assessment & Plan Assessment & Plan (1) Schizophrenia: Status: Acute Code(s): F20.9 - Schizophrenia, unspecified (2) Failure to thrive in adult: Status: Acute Code(s): R62.7 - Adult failure to thrive Plan The patient is a 63-year-old male with a past history of schizophrenia who had been in and out of several facilities in the last year with severe hypoactive behavior, catatonic like symptoms and chronic noncompliance who needed to go for [facility] 7 and 8 for ECT. Even though that he had been treated with antipsychotics he remains still internally preoccupied. Plan 01/22/2024: No changes to current plan. Will add MiraLax 01/22: no changes 01/23 continue tx 01/24 continue tx. 01/25 continue tx 01/27 continue tx. 01/28: Continue current regimen and plans 01/29: Continue current regimen and plans. 01/30 continue tx. awaiting guardianship. 01/31 continue tx. Reason for continued inpatient stay Substantial Risk for: inability to function Time Spent With Patient Time: Total time managing care of this patient today ____ minutes.
--- NOTE | 2024-02-02 11:53 | MHC.CLN ---
F/U DIET=REGULAR. ENSURE TID PROVIDES 1050 KCALS, 60 G PROTEIN. PATIENT ACCEPTS SUPPLEMENT. ENSURE CLEAR TID PROVIDES 720 KCALS, 24 G PROTEIN. INTAKE USUALLY BITES OF FOOD AND ACCEPTS ENSURE. NO RECENT SIGNIFICANT WEIGHT CHANGE. ENCOURAGE ADDITIONAL SNACKS AND SUPPLEMENTS FROM UNIT KITCHEN. CONTINUE CURRENT DIET, SUPPLEMENTS AND ENCOURAGE INTAKE ABLE.
--- NOTE | 2024-02-02 14:49 | HO.PSYCHPN ---
Subjective Subjective Date of Service: 02/02/24 Reason For Visit: Schizoaffective disorder, unspecified type Subjective Notes: Section 8 Interim History: pt slept 6 hrs. Visible during meals and briefly at other times during the day. Not very social with peers. No aggression. No behavioral concerns. functioning is limited although at this point at baseline. Diagnostics Vital Signs (24Hr): Vital Signs - 24 hr 02/01/24 20:23 02/02/24 08:00 02/02/24 09:00 Temperature 98.3 F 98.5 F Pulse Rate 94 108 H 91 Respiratory Rate 18 18 Blood Pressure 102/63 102/74 Pulse Oximetry 95 93 Oxygen Delivery Method Room Air Room Air BMI result Body Mass Index 17.3 Labs 01/18/24 08:02 01/18/24 08:02 Imaging Radiology Impressions: ITS Impressions Chest X-Ray 11/14/23 15:16 IMPRESSION: No evidence of acute disease. No pulmonary mass, pneumonia or pleural effusion. Chest CT 12/21/23 14:32 IMPRESSION: 1. No focal infiltrate is seen. 2. A 4 mm noncalcified subpleural nodule is seen within the posterior segment of the right upper lobe. According to the UPDATED 2017 Fleischner Society recommendations, the advised follow-up imaging for solid nodules < 6 mm is: LOW RISK PATIENT: No routine follow-up. HIGH RISK PATIENT: Optional CT at 12 months. 3. There is no thoracic lymphadenopathy or pleural effusion. 4. There is a marked kyphoscoliosis. No acute or aggressive osseous lesion is seen. 5. There is mild cholelithiasis. Fleischner guidelines were followed. KUB X-Ray 01/17/24 10:57 IMPRESSION: Multiple prominent, distended air-filled loops of small and large bowel. [id number]-[id number] amount of stool in the colon. Correlation with clinical exam recommended to determine further management including possible additional imaging with CT scan of the abdomen and pelvis if abdominal pathology is suspected. This study was presented today January 19, 2024 for interpretation. Stat results provided at this time as requested by referring provider. Medications Medications Current Medications Famotidine (Famotidine 20 Mg Tablet) 20 mg PO DAILY [facility] Last Admin: 02/02/24 08:57 Dose: 20 mg Loperamide HCl (Loperamide Hcl 2 Mg Capsule) 2 mg PO Q4H PRN PRN Reason: loose stools Last Admin: 01/13/24 15:22 Dose: 2 mg Memantine (Memantine Hcl 5 Mg Tablet) 5 mg PO BID [facility] Last Admin: 02/02/24 08:57 Dose: 5 mg Mirtazapine (Mirtazapine 7.5 Mg Tablet) 7.5 mg PO BEDTIME [facility] Last Admin: 02/01/24 20:12 Dose: 7.5 mg Modafinil (Modafinil 100 Mg Tablet) 50 mg PO DAILY [facility] Last Admin: 02/02/24 08:57 Dose: 50 mg Ondansetron HCl (Ondansetron Odt 4 Mg Tab.Rapdis) 4 mg TRANSLINGU Q8H PRN PRN Reason: Nausea and Vomiting Last Admin: 12/02/23 11:31 Dose: 4 mg Polyethylene Glycol (Polyethylene Glycol 3350 17 Gm Powd.Pack) 17 gm PO DAILY [facility] Last Admin: 02/02/24 08:57 Dose: 17 gm Risperidone (Risperidone 2 Mg Tablet) 2 mg PO BEDTIME [facility] Last Admin: 02/01/24 20:12 Dose: 2 mg Senna (Sennosides 8.6 Mg Tablet) 8.6 mg PO BEDTIME [facility] Last Admin: 02/01/24 20:12 Dose: 8.6 mg Vortioxetine (Vortioxetine Hydrobromide 5 Mg Tablet) 5 mg PO DAILY [facility] Last Admin: 02/02/24 08:57 Dose: 5 mg Allergies Allergies Allergy/AdvReac Type Severity Reaction Status Date / Time omeprazole Allergy Unknown Verified 10/30/23 00:09 Assessment & Plan Assessment & Plan (1) Schizophrenia: Status: Acute Code(s): F20.9 - Schizophrenia, unspecified (2) Failure to thrive in adult: Status: Acute Code(s): R62.7 - Adult failure to thrive Plan The patient is a 63-year-old male with a past history of schizophrenia who had been in and out of several facilities in the last year with severe hypoactive behavior, catatonic like symptoms and chronic noncompliance who needed to go for [facility] 7 and 8 for ECT. Even though that he had been treated with antipsychotics he remains still internally preoccupied. Plan 01/22/2024: No changes to current plan. Will add MiraLax 01/22: no changes 01/23 continue tx 01/24 continue tx. 01/25 continue tx 01/27 continue tx. 01/28: Continue current regimen and plans 01/29: Continue current regimen and plans. 01/30 continue tx. awaiting guardianship. 01/31 continue tx. 02/01 continue tx. Reason for continued inpatient stay Substantial Risk for: inability to function Time Spent With Patient Time: Total time managing care of this patient today ____ minutes.
[2024-02-02 20:00] VITALS: BP 101/87; PULSE 92; RESP 16; TEMP 36.6; O2SAT 95
[2024-02-02] MEDS: Sennosides 8.6 MG TABLET PO (20:59)
[2024-02-02] MEDS: risperiDONE 2 MG TABLET PO (20:59)
[2024-02-02] MEDS: Mirtazapine 7.5 MG TABLET PO (20:59)
[2024-02-03 07:00] VITALS: BMI 18.3
[2024-02-03 08:00] VITALS: BP 96/63; PULSE 100; RESP 16; TEMP 36.7; O2SAT 95
[2024-02-03] MEDS: Memantine HCl 5 MG TABLET PO ×2 (08:15→21:13)
[2024-02-03] MEDS: modafiniL 100 MG TABLET 50 MG PO (08:15)
[2024-02-03] MEDS: Famotidine 20 MG TABLET PO (08:16)
[2024-02-03] MEDS: Vortioxetine Hydrobromide 5 MG TABLET PO (08:16)
[2024-02-03] MEDS: polyethylene glycoL 3350 17 GM POWD.PACK PO (08:16)
--- NOTE | 2024-02-03 09:04 | HO.PSYCHPN ---
Subjective Subjective Date of Service: 02/03/24 Reason For Visit: Schizoaffective disorder, unspecified type Interim History: pt slept 6 hrs. Visible during meals and briefly at other times during the day. Not very social with peers. No aggression. No behavioral concerns. functioning is limited although at this point at baseline. Review of Systems Review of Systems Constipation improving Yes all other systems are reviewed and are negative and Unobtainable due to mental status Mental Status Exam Mental Status Exam Patient Appearance: Appropriate Patient Orientation: Person and Situation Level of Consciousness: Awake Patient Behavior: Guarded and Passive Mood Description: Withdrawn Affect Description: Blunted Patient Cognition Impaired: Yes Ability to Follow Directions: Good Speech Pattern: Clear Diagnostics Vital Signs (24Hr): Vital Signs - 24 hr 02/02/24 20:00 02/03/24 08:00 Temperature 97.8 F 98.1 F Pulse Rate 92 100 Respiratory Rate 16 16 Blood Pressure 101/87 96/63 Pulse Oximetry 95 95 Oxygen Delivery Method Room Air Room Air BMI result Body Mass Index 18.3 Labs 01/18/24 08:02 01/18/24 08:02 Imaging Radiology Impressions: ITS Impressions Chest X-Ray 11/14/23 15:16 IMPRESSION: No evidence of acute disease. No pulmonary mass, pneumonia or pleural effusion. Chest CT 12/21/23 14:32 IMPRESSION: 1. No focal infiltrate is seen. 2. A 4 mm noncalcified subpleural nodule is seen within the posterior segment of the right upper lobe. According to the UPDATED 2017 Fleischner Society recommendations, the advised follow-up imaging for solid nodules < 6 mm is: LOW RISK PATIENT: No routine follow-up. HIGH RISK PATIENT: Optional CT at 12 months. 3. There is no thoracic lymphadenopathy or pleural effusion. 4. There is a marked kyphoscoliosis. No acute or aggressive osseous lesion is seen. 5. There is mild cholelithiasis. Fleischner guidelines were followed. KUB X-Ray 01/17/24 10:57 IMPRESSION: Multiple prominent, distended air-filled loops of small and large bowel. [id number] amount of stool in the colon. Correlation with clinical exam recommended to determine further management including possible additional imaging with CT scan of the abdomen and pelvis if abdominal pathology is suspected. This study was presented today January 19, 2024 for interpretation. Stat results provided at this time as requested by referring provider. Medications Medications Current Medications Famotidine (Famotidine 20 Mg Tablet) 20 mg PO DAILY [facility] Last Admin: 02/03/24 08:16 Dose: 20 mg Loperamide HCl (Loperamide Hcl 2 Mg Capsule) 2 mg PO Q4H PRN PRN Reason: loose stools Last Admin: 01/13/24 15:22 Dose: 2 mg Memantine (Memantine Hcl 5 Mg Tablet) 5 mg PO BID [facility] Last Admin: 02/03/24 08:15 Dose: 5 mg Mirtazapine (Mirtazapine 7.5 Mg Tablet) 7.5 mg PO BEDTIME [facility] Last Admin: 02/02/24 20:59 Dose: 7.5 mg Modafinil (Modafinil 100 Mg Tablet) 50 mg PO DAILY [facility] Last Admin: 02/03/24 08:15 Dose: 50 mg Ondansetron HCl (Ondansetron Odt 4 Mg Tab.Rapdis) 4 mg TRANSLINGU Q8H PRN PRN Reason: Nausea and Vomiting Last Admin: 12/02/23 11:31 Dose: 4 mg Polyethylene Glycol (Polyethylene Glycol 3350 17 Gm Powd.Pack) 17 gm PO DAILY [facility] Last Admin: 02/03/24 08:16 Dose: 17 gm Risperidone (Risperidone 2 Mg Tablet) 2 mg PO BEDTIME [facility] Last Admin: 02/02/24 20:59 Dose: 2 mg Senna (Sennosides 8.6 Mg Tablet) 8.6 mg PO BEDTIME [facility] Last Admin: 02/02/24 20:59 Dose: 8.6 mg Vortioxetine (Vortioxetine Hydrobromide 5 Mg Tablet) 5 mg PO DAILY [facility] Last Admin: 02/03/24 08:16 Dose: 5 mg Allergies Allergies Allergy/AdvReac Type Severity Reaction Status Date / Time omeprazole Allergy Unknown Verified 10/30/23 00:09 Assessment & Plan Assessment & Plan (1) Schizophrenia: Status: Acute Code(s): F20.9 - Schizophrenia, unspecified (2) Failure to thrive in adult: Status: Acute Code(s): R62.7 - Adult failure to thrive Plan The patient is a 63-year-old male with a past history of schizophrenia who had been in and out of several facilities in the last year with severe hypoactive behavior, catatonic like symptoms and chronic noncompliance who needed to go for Section 7 and 8 for ECT. Even though that he had been treated with antipsychotics he remains still internally preoccupied. Plan 01/22/2024: No changes to current plan. Will add MiraLax 01/22: no changes 01/23 continue tx 01/24 continue tx. 01/25 continue tx 01/27 continue tx. 01/28: Continue current regimen and plans 01/29: Continue current regimen and plans. 01/30 continue tx. awaiting guardianship. 01/31 continue tx. 02/01 continue tx. 02/02 continue tx. Reason for continued inpatient stay Substantial Risk for: inability to function Time Spent With Patient Time: Total time managing care of this patient today ____ minutes.
[2024-02-03 20:00] VITALS: BP 98/57; PULSE 86; RESP 18; TEMP 36.8; O2SAT 97
[2024-02-03] MEDS: Mirtazapine 7.5 MG TABLET PO (21:13)
[2024-02-03] MEDS: Sennosides 8.6 MG TABLET PO (21:13)
[2024-02-03] MEDS: risperiDONE 2 MG TABLET PO (21:13)
[2024-02-04 07:39] VITALS: BP 139/83; PULSE 96; RESP 16; TEMP 36.7; O2SAT 96
[2024-02-04] MEDS: Memantine HCl 5 MG TABLET PO ×2 (08:05→20:28)
[2024-02-04] MEDS: Vortioxetine Hydrobromide 5 MG TABLET PO (08:05)
[2024-02-04] MEDS: Famotidine 20 MG TABLET PO (08:05)
[2024-02-04] MEDS: modafiniL 100 MG TABLET 50 MG PO (08:06)
[2024-02-04] MEDS: polyethylene glycoL 3350 17 GM POWD.PACK PO (08:06)
--- NOTE | 2024-02-04 12:16 | P.PNPSI_ITS ---
Subjective Subjective Date of Service: 02/04/24 Reason For Visit: Schizoaffective disorder, unspecified type Subjective Notes: Section 8 Interim History: pt slept 6 hrs. Visible during meals and briefly at other times during the day. Not very social with peers. No aggression. No behavioral concerns. functioning is limited although at this point at baseline. Review of Systems Review of Systems Constipation improving Yes all other systems are reviewed and are negative and Unobtainable due to mental status Mental Status Exam Mental Status Exam Patient Appearance: Appropriate Patient Orientation: Person and Situation Level of Consciousness: Awake Patient Behavior: Guarded and Passive Mood Description: Withdrawn Affect Description: Blunted Patient Cognition Impaired: Yes Ability to Follow Directions: Good Speech Pattern: Clear Diagnostics Vital Signs (24Hr): Vital Signs - 24 hr 02/03/24 20:00 02/04/24 07:39 Temperature 98.3 F 98.1 F Pulse Rate 86 96 Respiratory Rate 18 16 Blood Pressure 98/57 L 139/83 Pulse Oximetry 97 96 Oxygen Delivery Method Room Air Room Air BMI result Body Mass Index 18.3 Labs 01/18/24 08:02 01/18/24 08:02 Imaging Radiology Impressions: ITS Impressions Chest X-Ray 11/14/23 15:16 IMPRESSION: No evidence of acute disease. No pulmonary mass, pneumonia or pleural effusion. Chest CT 12/21/23 14:32 IMPRESSION: 1. No focal infiltrate is seen. 2. A 4 mm noncalcified subpleural nodule is seen within the posterior segment of the right upper lobe. According to the UPDATED 2017 Fleischner Society recommendations, the advised follow-up imaging for solid nodules < 6 mm is: LOW RISK PATIENT: No routine follow-up. HIGH RISK PATIENT: Optional CT at 12 months. 3. There is no thoracic lymphadenopathy or pleural effusion. 4. There is a marked kyphoscoliosis. No acute or aggressive osseous lesion is seen. 5. There is mild cholelithiasis. Fleischner guidelines were followed. KUB X-Ray 01/17/24 10:57 IMPRESSION: Multiple prominent, distended air-filled loops of small and large bowel. [id number] amount of stool in the colon. Correlation with clinical exam recommended to determine further management including possible additional imaging with CT scan of the abdomen and pelvis if abdominal pathology is suspected. This study was presented today January 19, 2024 for interpretation. Stat results provided at this time as requested by referring provider. Medications Medications Current Medications Famotidine (Famotidine 20 Mg Tablet) 20 mg PO DAILY [facility] Last Admin: 02/04/24 08:05 Dose: 20 mg Loperamide HCl (Loperamide Hcl 2 Mg Capsule) 2 mg PO Q4H PRN PRN Reason: loose stools Last Admin: 01/13/24 15:22 Dose: 2 mg Memantine (Memantine Hcl 5 Mg Tablet) 5 mg PO BID [facility] Last Admin: 02/04/24 08:05 Dose: 5 mg Mirtazapine (Mirtazapine 7.5 Mg Tablet) 7.5 mg PO BEDTIME [facility] Last Admin: 02/03/24 21:13 Dose: 7.5 mg Modafinil (Modafinil 100 Mg Tablet) 50 mg PO DAILY [facility] Last Admin: 02/04/24 08:06 Dose: 50 mg Ondansetron HCl (Ondansetron Odt 4 Mg Tab.Rapdis) 4 mg TRANSLINGU Q8H PRN PRN Reason: Nausea and Vomiting Last Admin: 12/02/23 11:31 Dose: 4 mg Polyethylene Glycol (Polyethylene Glycol 3350 17 Gm Powd.Pack) 17 gm PO DAILY [facility] Last Admin: 02/04/24 08:06 Dose: 17 gm Risperidone (Risperidone 2 Mg Tablet) 2 mg PO BEDTIME [facility] Last Admin: 02/03/24 21:13 Dose: 2 mg Senna (Sennosides 8.6 Mg Tablet) 8.6 mg PO BEDTIME [facility] Last Admin: 02/03/24 21:13 Dose: 8.6 mg Vortioxetine (Vortioxetine Hydrobromide 5 Mg Tablet) 5 mg PO DAILY [facility] Last Admin: 02/04/24 08:05 Dose: 5 mg Allergies Allergies Allergy/AdvReac Type Severity Reaction Status Date / Time omeprazole Allergy Unknown Verified 10/30/23 00:09 Assessment & Plan Assessment & Plan (1) Schizophrenia: Status: Acute Code(s): F20.9 - Schizophrenia, unspecified (2) Failure to thrive in adult: Status: Acute Code(s): R62.7 - Adult failure to thrive Plan The patient is a 63-year-old male with a past history of schizophrenia who had been in and out of several facilities in the last year with severe hypoactive behavior, catatonic like symptoms and chronic noncompliance who needed to go for Section 7 and 8 for ECT. Even though that he had been treated with antipsychotics he remains still internally preoccupied. Plan 01/22/2024: No changes to current plan. Will add MiraLax 01/22: no changes 01/23 continue tx 01/24 continue tx. 01/25 continue tx 01/27 continue tx. 01/28: Continue current regimen and plans 01/29: Continue current regimen and plans. 01/30 continue tx. awaiting guardianship. 01/31 continue tx. 02/01 continue tx. 02/02 continue tx. 02/03 continue tx. Reason for continued inpatient stay Substantial Risk for: inability to function Time Spent With Patient Time: Total time managing care of this patient today ____ minutes.
[2024-02-04 20:00] VITALS: BP 98/59; PULSE 95; RESP 16; TEMP 36.7; O2SAT 96
[2024-02-04] MEDS: Mirtazapine 7.5 MG TABLET PO (20:28)
[2024-02-04] MEDS: risperiDONE 2 MG TABLET PO (20:28)
[2024-02-04] MEDS: Sennosides 8.6 MG TABLET PO (20:29)
[2024-02-05 08:10] VITALS: BP 100/59; PULSE 93; RESP 16; TEMP 36.8; O2SAT 96
--- NOTE | 2024-02-05 08:29 | HO.PSYCHPN ---
Subjective Subjective Date of Service: 02/05/24 Reason For Visit: Schizoaffective disorder, unspecified type Interim History: pt slept 6 hrs. Visible during meals and briefly at other times during the day. Not very social with peers. No aggression. No behavioral concerns. functioning is limited although at this point at baseline. Review of Systems Review of Systems Constipation improving Yes all other systems are reviewed and are negative and Unobtainable due to mental status Mental Status Exam Mental Status Exam Patient Appearance: Appropriate Patient Orientation: Person and Situation Level of Consciousness: Awake Patient Behavior: Guarded and Passive Mood Description: Withdrawn Affect Description: Blunted Patient Cognition Impaired: Yes Ability to Follow Directions: Good Speech Pattern: Clear Diagnostics Vital Signs (24Hr): Vital Signs - 24 hr 02/04/24 20:00 Temperature 98.1 F Pulse Rate 95 Respiratory Rate 16 Blood Pressure 98/59 L Pulse Oximetry 96 Oxygen Delivery Method Room Air BMI result Body Mass Index 18.3 Labs 01/18/24 08:02 01/18/24 08:02 Imaging Radiology Impressions: ITS Impressions Chest X-Ray 11/14/23 15:16 IMPRESSION: No evidence of acute disease. No pulmonary mass, pneumonia or pleural effusion. Chest CT 12/21/23 14:32 IMPRESSION: 1. No focal infiltrate is seen. 2. A 4 mm noncalcified subpleural nodule is seen within the posterior segment of the right upper lobe. According to the UPDATED 2017 Fleischner Society recommendations, the advised follow-up imaging for solid nodules < 6 mm is: LOW RISK PATIENT: No routine follow-up. HIGH RISK PATIENT: Optional CT at 12 months. 3. There is no thoracic lymphadenopathy or pleural effusion. 4. There is a marked kyphoscoliosis. No acute or aggressive osseous lesion is seen. 5. There is mild cholelithiasis. Fleischner guidelines were followed. KUB X-Ray 01/17/24 10:57 IMPRESSION: Multiple prominent, distended air-filled loops of small and large bowel. [id number] amount of stool in the colon. Correlation with clinical exam recommended to determine further management including possible additional imaging with CT scan of the abdomen and pelvis if abdominal pathology is suspected. This study was presented today January 19, 2024 for interpretation. Stat results provided at this time as requested by referring provider. Medications Medications Current Medications Famotidine (Famotidine 20 Mg Tablet) 20 mg PO DAILY [facility] Last Admin: 02/04/24 08:05 Dose: 20 mg Loperamide HCl (Loperamide Hcl 2 Mg Capsule) 2 mg PO Q4H PRN PRN Reason: loose stools Last Admin: 01/13/24 15:22 Dose: 2 mg Memantine (Memantine Hcl 5 Mg Tablet) 5 mg PO BID [facility] Last Admin: 02/04/24 20:28 Dose: 5 mg Mirtazapine (Mirtazapine 7.5 Mg Tablet) 7.5 mg PO BEDTIME [facility] Last Admin: 02/04/24 20:28 Dose: 7.5 mg Modafinil (Modafinil 100 Mg Tablet) 50 mg PO DAILY [facility] Last Admin: 02/04/24 08:06 Dose: 50 mg Ondansetron HCl (Ondansetron Odt 4 Mg Tab.Rapdis) 4 mg TRANSLINGU Q8H PRN PRN Reason: Nausea and Vomiting Last Admin: 12/02/23 11:31 Dose: 4 mg Polyethylene Glycol (Polyethylene Glycol 3350 17 Gm Powd.Pack) 17 gm PO DAILY [facility] Last Admin: 02/04/24 08:06 Dose: 17 gm Risperidone (Risperidone 2 Mg Tablet) 2 mg PO BEDTIME [facility] Last Admin: 02/04/24 20:28 Dose: 2 mg Senna (Sennosides 8.6 Mg Tablet) 8.6 mg PO BEDTIME [facility] Last Admin: 02/04/24 20:29 Dose: 8.6 mg Vortioxetine (Vortioxetine Hydrobromide 5 Mg Tablet) 5 mg PO DAILY [facility] Last Admin: 02/04/24 08:05 Dose: 5 mg Allergies Allergies Allergy/AdvReac Type Severity Reaction Status Date / Time omeprazole Allergy Unknown Verified 10/30/23 00:09 Assessment & Plan Assessment & Plan (1) Schizophrenia: Status: Acute Code(s): F20.9 - Schizophrenia, unspecified (2) Failure to thrive in adult: Status: Acute Code(s): R62.7 - Adult failure to thrive Plan The patient is a 63-year-old male with a past history of schizophrenia who had been in and out of several facilities in the last year with severe hypoactive behavior, catatonic like symptoms and chronic noncompliance who needed to go for Section 7 and 8 for ECT. Even though that he had been treated with antipsychotics he remains still internally preoccupied. Plan 01/22/2024: No changes to current plan. Will add MiraLax 01/22: no changes 01/23 continue tx 01/24 continue tx. 01/25 continue tx 01/27 continue tx. 01/28: Continue current regimen and plans 01/29: Continue current regimen and plans. 01/30 continue tx. awaiting guardianship. 01/31 continue tx. 02/01 continue tx. 02/02 continue tx. 02/03 continue tx. Reason for continued inpatient stay Substantial Risk for: inability to function Time Spent With Patient Time: Total time managing care of this patient today ____ minutes.
[2024-02-05] MEDS: Vortioxetine Hydrobromide 5 MG TABLET PO (08:35)
[2024-02-05] MEDS: Famotidine 20 MG TABLET PO (08:35)
[2024-02-05] MEDS: Memantine HCl 5 MG TABLET PO ×2 (08:35→20:42)
[2024-02-05] MEDS: modafiniL 100 MG TABLET 50 MG PO (08:35)
[2024-02-05 20:00] VITALS: BP 108/73; PULSE 84; RESP 16; TEMP 36.2; O2SAT 97
[2024-02-05] MEDS: Mirtazapine 7.5 MG TABLET PO (20:43)
[2024-02-05] MEDS: risperiDONE 2 MG TABLET PO (20:43)
[2024-02-05] MEDS: Sennosides 8.6 MG TABLET PO (20:43)
[2024-02-06 11:53] VITALS: BP 99/60; PULSE 81; RESP 18; TEMP 37.2; O2SAT 93
[2024-02-06] MEDS: Famotidine 20 MG TABLET PO (12:07)
[2024-02-06] MEDS: Memantine HCl 5 MG TABLET PO ×2 (12:07→20:26)
[2024-02-06] MEDS: Vortioxetine Hydrobromide 5 MG TABLET PO (12:07)
[2024-02-06] MEDS: modafiniL 100 MG TABLET 50 MG PO (12:13)
[2024-02-06 20:00] VITALS: BP 91/56; PULSE 82; RESP 16; TEMP 36.9; O2SAT 97
--- NOTE | 2024-02-06 20:05 | HO.PSYCHPN ---
Subjective Subjective Date of Service: 02/06/24 Reason For Visit: Schizoaffective disorder, unspecified type Subjective Notes: Conditional Voluntary Interim History: pt slept 6 hrs. Visible during meals and briefly at other times during the day. Not very social with peers. No aggression. No behavioral concerns. functioning is limited although at this point at baseline. Review of Systems Review of Systems Constipation improving Yes all other systems are reviewed and are negative and Unobtainable due to mental status Mental Status Exam Mental Status Exam Patient Appearance: Appropriate Patient Orientation: Person and Situation Level of Consciousness: Awake Patient Behavior: Guarded and Passive Mood Description: Withdrawn Affect Description: Blunted Patient Cognition Impaired: Yes Ability to Follow Directions: Good Speech Pattern: Clear Diagnostics Vital Signs (24Hr): Vital Signs - 24 hr 02/06/24 11:53 Temperature 99.0 F Pulse Rate 81 Respiratory Rate 18 Blood Pressure 99/60 Pulse Oximetry 93 Oxygen Delivery Method Room Air BMI result Body Mass Index 18.3 Labs 01/18/24 08:02 01/18/24 08:02 Imaging Radiology Impressions: ITS Impressions Chest X-Ray 11/14/23 15:16 IMPRESSION: No evidence of acute disease. No pulmonary mass, pneumonia or pleural effusion. Chest CT 12/21/23 14:32 IMPRESSION: 1. No focal infiltrate is seen. 2. A 4 mm noncalcified subpleural nodule is seen within the posterior segment of the right upper lobe. According to the UPDATED 2017 Fleischner Society recommendations, the advised follow-up imaging for solid nodules < 6 mm is: LOW RISK PATIENT: No routine follow-up. HIGH RISK PATIENT: Optional CT at 12 months. 3. There is no thoracic lymphadenopathy or pleural effusion. 4. There is a marked kyphoscoliosis. No acute or aggressive osseous lesion is seen. 5. There is mild cholelithiasis. Fleischner guidelines were followed. KUB X-Ray 01/17/24 10:57 IMPRESSION: Multiple prominent, distended air-filled loops of small and large bowel. [id number] amount of stool in the colon. Correlation with clinical exam recommended to determine further management including possible additional imaging with CT scan of the abdomen and pelvis if abdominal pathology is suspected. This study was presented today January 19, 2024 for interpretation. Stat results provided at this time as requested by referring provider. Medications Medications Current Medications Famotidine (Famotidine 20 Mg Tablet) 20 mg PO DAILY [facility] Last Admin: 02/06/24 12:07 Dose: 20 mg Loperamide HCl (Loperamide Hcl 2 Mg Capsule) 2 mg PO Q4H PRN PRN Reason: loose stools Last Admin: 01/13/24 15:22 Dose: 2 mg Memantine (Memantine Hcl 5 Mg Tablet) 5 mg PO BID [facility] Last Admin: 02/06/24 12:07 Dose: 5 mg Mirtazapine (Mirtazapine 7.5 Mg Tablet) 7.5 mg PO BEDTIME [facility] Last Admin: 02/05/24 20:43 Dose: 7.5 mg Modafinil (Modafinil 100 Mg Tablet) 50 mg PO DAILY [facility] Last Admin: 02/06/24 12:13 Dose: 50 mg Ondansetron HCl (Ondansetron Odt 4 Mg Tab.Rapdis) 4 mg TRANSLINGU Q8H PRN PRN Reason: Nausea and Vomiting Last Admin: 12/02/23 11:31 Dose: 4 mg Polyethylene Glycol (Polyethylene Glycol 3350 17 Gm Powd.Pack) 17 gm PO DAILY [facility] Last Admin: 02/06/24 12:15 Dose: Not Given Risperidone (Risperidone 2 Mg Tablet) 2 mg PO BEDTIME [facility] Last Admin: 02/05/24 20:43 Dose: 2 mg Senna (Sennosides 8.6 Mg Tablet) 8.6 mg PO BEDTIME [facility] Last Admin: 02/05/24 20:43 Dose: 8.6 mg Vortioxetine (Vortioxetine Hydrobromide 5 Mg Tablet) 5 mg PO DAILY [facility] Last Admin: 02/06/24 12:07 Dose: 5 mg Allergies Allergies Allergy/AdvReac Type Severity Reaction Status Date / Time omeprazole Allergy Unknown Verified 10/30/23 00:09 Assessment & Plan Assessment & Plan (1) Schizophrenia: Status: Acute Code(s): F20.9 - Schizophrenia, unspecified (2) Failure to thrive in adult: Status: Acute Code(s): R62.7 - Adult failure to thrive Plan The patient is a 63-year-old male with a past history of schizophrenia who had been in and out of several facilities in the last year with severe hypoactive behavior, catatonic like symptoms and chronic noncompliance who needed to go for Section 7 and 8 for ECT. Even though that he had been treated with antipsychotics he remains still internally preoccupied. Plan 01/22/2024: No changes to current plan. Will add MiraLax 01/22: no changes 01/23 continue tx 01/24 continue tx. 01/25 continue tx 01/27 continue tx. 01/28: Continue current regimen and plans 01/29: Continue current regimen and plans. 01/30 continue tx. awaiting guardianship. 01/31 continue tx. 02/01 continue tx. 02/02 continue tx. 02/03 continue tx. Reason for continued inpatient stay Substantial Risk for: inability to function Time Spent With Patient Time: Total time managing care of this patient today ____ minutes.
[2024-02-06] MEDS: risperiDONE 2 MG TABLET PO (20:26)
[2024-02-06] MEDS: Mirtazapine 7.5 MG TABLET PO (20:26)
[2024-02-07 09:03] VITALS: BP 91/72; PULSE 73; RESP 16; TEMP 37; O2SAT 94
[2024-02-07] MEDS: Famotidine 20 MG TABLET PO (09:04)
[2024-02-07] MEDS: Memantine HCl 5 MG TABLET PO ×2 (09:04→20:25)
[2024-02-07] MEDS: modafiniL 100 MG TABLET 50 MG PO (09:04)
[2024-02-07] MEDS: Vortioxetine Hydrobromide 5 MG TABLET PO (09:04)
--- NOTE | 2024-02-07 09:54 | HO.PSYCHPN ---
Subjective Subjective Date of Service: 02/07/24 Reason For Visit: Schizoaffective disorder, unspecified type Subjective Notes: Section 8 Interim History: pt slept 6 hrs. Visible during meals and briefly at other times during the day. Not very social with peers. No aggression. No behavioral concerns. functioning is limited although at this point at baseline. Review of Systems Review of Systems Constipation improving Yes all other systems are reviewed and are negative and Unobtainable due to mental status Mental Status Exam Mental Status Exam Patient Appearance: Appropriate Patient Orientation: Person and Situation Level of Consciousness: Awake Patient Behavior: Guarded and Passive Mood Description: Withdrawn Affect Description: Blunted Patient Cognition Impaired: Yes Ability to Follow Directions: Good Speech Pattern: Clear Diagnostics Vital Signs (24Hr): Vital Signs - 24 hr 02/06/24 11:53 02/06/24 20:00 02/07/24 09:03 Temperature 99.0 F 98.4 F 98.6 F Pulse Rate 81 82 73 Respiratory Rate 18 16 16 Blood Pressure 99/60 91/56 L 91/72 Pulse Oximetry 93 97 94 Oxygen Delivery Method Room Air Room Air Room Air BMI result Body Mass Index 18.3 Labs 01/18/24 08:02 01/18/24 08:02 Imaging Radiology Impressions: ITS Impressions Chest X-Ray 11/14/23 15:16 IMPRESSION: No evidence of acute disease. No pulmonary mass, pneumonia or pleural effusion. Chest CT 12/21/23 14:32 IMPRESSION: 1. No focal infiltrate is seen. 2. A 4 mm noncalcified subpleural nodule is seen within the posterior segment of the right upper lobe. According to the UPDATED 2017 Fleischner Society recommendations, the advised follow-up imaging for solid nodules < 6 mm is: LOW RISK PATIENT: No routine follow-up. HIGH RISK PATIENT: Optional CT at 12 months. 3. There is no thoracic lymphadenopathy or pleural effusion. 4. There is a marked kyphoscoliosis. No acute or aggressive osseous lesion is seen. 5. There is mild cholelithiasis. Fleischner guidelines were followed. [facility] X-Ray 01/17/24 10:57 IMPRESSION: Multiple prominent, distended air-filled loops of small and large bowel. [id number]-[id number] amount of stool in the colon. Correlation with clinical exam recommended to determine further management including possible additional imaging with CT scan of the abdomen and pelvis if abdominal pathology is suspected. This study was presented today January 19, 2024 for interpretation. Stat results provided at this time as requested by referring provider. Medications Medications Current Medications Famotidine (Famotidine 20 Mg Tablet) 20 mg PO DAILY [facility] Last Admin: 02/07/24 09:04 Dose: 20 mg Loperamide HCl (Loperamide Hcl 2 Mg Capsule) 2 mg PO Q4H PRN PRN Reason: loose stools Last Admin: 01/13/24 15:22 Dose: 2 mg Memantine (Memantine Hcl 5 Mg Tablet) 5 mg PO BID [facility] Last Admin: 02/07/24 09:04 Dose: 5 mg Mirtazapine (Mirtazapine 7.5 Mg Tablet) 7.5 mg PO BEDTIME [facility] Last Admin: 02/06/24 20:26 Dose: 7.5 mg Modafinil (Modafinil 100 Mg Tablet) 50 mg PO DAILY [facility] Last Admin: 02/07/24 09:04 Dose: 50 mg Ondansetron HCl (Ondansetron Odt 4 Mg Tab.Rapdis) 4 mg TRANSLINGU Q8H PRN PRN Reason: Nausea and Vomiting Last Admin: 12/02/23 11:31 Dose: 4 mg Polyethylene Glycol (Polyethylene Glycol 3350 17 Gm Powd.Pack) 17 gm PO DAILY [facility] Last Admin: 02/07/24 09:06 Dose: Not Given Risperidone (Risperidone 2 Mg Tablet) 2 mg PO BEDTIME [facility] Last Admin: 02/06/24 20:26 Dose: 2 mg Senna (Sennosides 8.6 Mg Tablet) 8.6 mg PO BEDTIME [facility] Last Admin: 02/06/24 20:27 Dose: Not Given Vortioxetine (Vortioxetine Hydrobromide 5 Mg Tablet) 5 mg PO DAILY [facility] Last Admin: 02/07/24 09:04 Dose: 5 mg Allergies Allergies Allergy/AdvReac Type Severity Reaction Status Date / Time omeprazole Allergy Unknown Verified 10/30/23 00:09 Assessment & Plan Assessment & Plan (1) Schizophrenia: Status: Acute Code(s): F20.9 - Schizophrenia, unspecified (2) Failure to thrive in adult: Status: Acute Code(s): R62.7 - Adult failure to thrive Plan The patient is a 63-year-old male with a past history of schizophrenia who had been in and out of several facilities in the last year with severe hypoactive behavior, catatonic like symptoms and chronic noncompliance who needed to go for Section 7 and 8 for ECT. Even though that he had been treated with antipsychotics he remains still internally preoccupied. Plan 01/22/2024: No changes to current plan. Will add MiraLax 01/22: no changes 01/23 continue tx 01/24 continue tx. 01/25 continue tx 01/27 continue tx. 01/28: Continue current regimen and plans 01/29: Continue current regimen and plans. 01/30 continue tx. awaiting guardianship. 01/31 continue tx. 02/01 continue tx. 02/02 continue tx. 02/03 continue tx. 02/06 continue tx. Reason for continued inpatient stay Substantial Risk for: inability to function Time Spent With Patient Time: Total time managing care of this patient today ____ minutes.
[2024-02-07 20:00] VITALS: BP 98/86; PULSE 77; RESP 16; TEMP 37; O2SAT 95
[2024-02-07] MEDS: risperiDONE 2 MG TABLET PO (20:25)
[2024-02-07] MEDS: Mirtazapine 7.5 MG TABLET PO (20:25)
[2024-02-07] MEDS: Sennosides 8.6 MG TABLET PO (20:25)
[2024-02-08 08:00] VITALS: BP 94/52; PULSE 104; RESP 15; TEMP 37.1; O2SAT 93
--- NOTE | 2024-02-08 14:38 | P.PNPSI_ITS ---
Subjective Subjective Date of Service: 02/08/24 Reason For Visit: Schizoaffective disorder, unspecified type Interim History: pt slept 6 hrs. Visible during meals and briefly at other times during the day. Not very social with peers. No aggression. No behavioral concerns. functioning is limited although at this point at baseline. Review of Systems Review of Systems Constipation improving Yes all other systems are reviewed and are negative and Unobtainable due to mental status Mental Status Exam Mental Status Exam Patient Appearance: Appropriate Patient Orientation: Person and Situation Level of Consciousness: Awake Patient Behavior: Guarded and Passive Mood Description: Withdrawn Affect Description: Blunted Patient Cognition Impaired: Yes Ability to Follow Directions: Good Speech Pattern: Clear Diagnostics Vital Signs (24Hr): Vital Signs - 24 hr 02/07/24 20:00 02/08/24 08:00 Temperature 98.6 F 98.7 F Pulse Rate 77 104 H Respiratory Rate 16 15 Blood Pressure 98/86 94/52 L Pulse Oximetry 95 93 Oxygen Delivery Method Room Air Room Air BMI result Body Mass Index 18.3 Labs 01/18/24 08:02 01/18/24 08:02 Imaging Radiology Impressions: ITS Impressions Chest X-Ray 11/14/23 15:16 IMPRESSION: No evidence of acute disease. No pulmonary mass, pneumonia or pleural effusion. Chest CT 12/21/23 14:32 IMPRESSION: 1. No focal infiltrate is seen. 2. A 4 mm noncalcified subpleural nodule is seen within the posterior segment of the right upper lobe. According to the UPDATED 2017 Fleischner Society recommendations, the advised follow-up imaging for solid nodules < 6 mm is: LOW RISK PATIENT: No routine follow-up. HIGH RISK PATIENT: Optional CT at 12 months. 3. There is no thoracic lymphadenopathy or pleural effusion. 4. There is a marked kyphoscoliosis. No acute or aggressive osseous lesion is seen. 5. There is mild cholelithiasis. Fleischner guidelines were followed. KUB X-Ray 01/17/24 10:57 IMPRESSION: Multiple prominent, distended air-filled loops of small and large bowel. [id number] amount of stool in the colon. Correlation with clinical exam recommended to determine further management including possible additional imaging with CT scan of the abdomen and pelvis if abdominal pathology is suspected. This study was presented today January 19, 2024 for interpretation. Stat results provided at this time as requested by referring provider. Medications Medications Current Medications Famotidine (Famotidine 20 Mg Tablet) 20 mg PO DAILY [facility] Last Admin: 02/08/24 08:16 Dose: Not Given Loperamide HCl (Loperamide Hcl 2 Mg Capsule) 2 mg PO Q4H PRN PRN Reason: loose stools Last Admin: 01/13/24 15:22 Dose: 2 mg Memantine (Memantine Hcl 5 Mg Tablet) 5 mg PO BID [facility] Last Admin: 02/08/24 08:16 Dose: Not Given Mirtazapine (Mirtazapine 7.5 Mg Tablet) 7.5 mg PO BEDTIME [facility] Last Admin: 02/07/24 20:25 Dose: 7.5 mg Modafinil (Modafinil 100 Mg Tablet) 50 mg PO DAILY [facility] Last Admin: 02/08/24 08:16 Dose: Not Given Ondansetron HCl (Ondansetron Odt 4 Mg Tab.Rapdis) 4 mg TRANSLINGU Q8H PRN PRN Reason: Nausea and Vomiting Last Admin: 12/02/23 11:31 Dose: 4 mg Polyethylene Glycol (Polyethylene Glycol 3350 17 Gm Powd.Pack) 17 gm PO DAILY [facility] Last Admin: 02/08/24 08:16 Dose: Not Given Risperidone (Risperidone 2 Mg Tablet) 2 mg PO BEDTIME [facility] Last Admin: 02/07/24 20:25 Dose: 2 mg Senna (Sennosides 8.6 Mg Tablet) 8.6 mg PO BEDTIME [facility] Last Admin: 02/07/24 20:25 Dose: 8.6 mg Vortioxetine (Vortioxetine Hydrobromide 5 Mg Tablet) 5 mg PO DAILY [facility] Last Admin: 02/08/24 08:16 Dose: Not Given Allergies Allergies Allergy/AdvReac Type Severity Reaction Status Date / Time omeprazole Allergy Unknown Verified 10/30/23 00:09 Assessment & Plan Assessment & Plan (1) Schizophrenia: Status: Acute Code(s): F20.9 - Schizophrenia, unspecified (2) Failure to thrive in adult: Status: Acute Code(s): R62.7 - Adult failure to thrive Plan The patient is a 63-year-old male with a past history of schizophrenia who had been in and out of several facilities in the last year with severe hypoactive behavior, catatonic like symptoms and chronic noncompliance who needed to go for [facility] for ECT. Even though that he had been treated with antipsychotics he remains still internally preoccupied. Plan 01/22/2024: No changes to current plan. Will add MiraLax 01/22: no changes 01/23 continue tx 01/24 continue tx. 01/25 continue tx 01/27 continue tx. 01/28: Continue current regimen and plans 01/29: Continue current regimen and plans. 01/30 continue tx. awaiting guardianship. 01/31 continue tx. 02/01 continue tx. 02/02 continue tx. 02/03 continue tx. 02/06 continue tx. Reason for continued inpatient stay Substantial Risk for: inability to function Time Spent With Patient Time: Total time managing care of this patient today ____ minutes.
[2024-02-08 20:00] VITALS: BP 85/54; PULSE 73; RESP 15; TEMP 36.8; O2SAT 96
[2024-02-08] MEDS: risperiDONE 2 MG TABLET PO (21:26)
[2024-02-08] MEDS: Memantine HCl 5 MG TABLET PO (21:26)
[2024-02-08] MEDS: Mirtazapine 7.5 MG TABLET PO (21:26)
[2024-02-08] MEDS: Sennosides 8.6 MG TABLET PO (21:27)
[2024-02-09 08:00] VITALS: BP 88/58; PULSE 96; RESP 18; TEMP 36.6; O2SAT 93
[2024-02-09] MEDS: Memantine HCl 5 MG TABLET PO ×2 (09:16→20:47)
[2024-02-09] MEDS: Vortioxetine Hydrobromide 5 MG TABLET PO (09:16)
[2024-02-09] MEDS: Famotidine 20 MG TABLET PO (09:16)
[2024-02-09 11:30] VITALS: BP 98/59
--- NOTE | 2024-02-09 12:45 | P.PNPSI_ITS ---
Subjective Subjective Date of Service: 02/09/24 Reason For Visit: Schizoaffective disorder, unspecified type Interim History: somnolent. no complaints or requests other than to be discharged. per staff, sleeping all day, ECT not appearing to be helpful, poor PO intake. Mental Status Exam Mental Status Exam Patient Appearance: Appropriate Patient Orientation: Person and Situation Level of Consciousness: Drowsy Patient Behavior: Guarded and Passive Mood Description: Withdrawn Affect Description: Blunted Patient Cognition Impaired: Yes Ability to Follow Directions: Good Speech Pattern: Clear Diagnostics Vital Signs (24Hr): Vital Signs - 24 hr 02/08/24 20:00 02/09/24 08:00 Temperature 98.3 F 97.9 F Pulse Rate 73 96 Respiratory Rate 15 18 Blood Pressure 85/54 L 88/58 L Pulse Oximetry 96 93 Oxygen Delivery Method Room Air BMI result Body Mass Index 18.3 Labs 01/18/24 08:02 01/18/24 08:02 Imaging Radiology Impressions: ITS Impressions Chest X-Ray 11/14/23 15:16 IMPRESSION: No evidence of acute disease. No pulmonary mass, pneumonia or pleural effusion. Chest CT 12/21/23 14:32 IMPRESSION: 1. No focal infiltrate is seen. 2. A 4 mm noncalcified subpleural nodule is seen within the posterior segment of the right upper lobe. According to the UPDATED 2017 Fleischner Society recommendations, the advised follow-up imaging for solid nodules < 6 mm is: LOW RISK PATIENT: No routine follow-up. HIGH RISK PATIENT: Optional CT at 12 months. 3. There is no thoracic lymphadenopathy or pleural effusion. 4. There is a marked kyphoscoliosis. No acute or aggressive osseous lesion is seen. 5. There is mild cholelithiasis. Fleischner guidelines were followed. KUB X-Ray 01/17/24 10:57 IMPRESSION: Multiple prominent, distended air-filled loops of small and large bowel. [id number] amount of stool in the colon. Correlation with clinical exam recommended to determine further management including possible additional imaging with CT scan of the abdomen and pelvis if abdominal pathology is suspected. This study was presented today January 19, 2024 for interpretation. Stat results provided at this time as requested by referring provider. Medications Medications Current Medications Famotidine (Famotidine 20 Mg Tablet) 20 mg PO DAILY [facility] Last Admin: 02/09/24 09:16 Dose: 20 mg Loperamide HCl (Loperamide Hcl 2 Mg Capsule) 2 mg PO Q4H PRN PRN Reason: loose stools Last Admin: 01/13/24 15:22 Dose: 2 mg Memantine (Memantine Hcl 5 Mg Tablet) 5 mg PO BID [facility] Last Admin: 02/09/24 09:16 Dose: 5 mg Mirtazapine (Mirtazapine 7.5 Mg Tablet) 7.5 mg PO BEDTIME [facility] Last Admin: 02/08/24 21:26 Dose: 7.5 mg Modafinil (Modafinil 100 Mg Tablet) 100 mg PO DAILY [facility] Ondansetron HCl (Ondansetron Odt 4 Mg Tab.Rapdis) 4 mg TRANSLINGU Q8H PRN PRN Reason: Nausea and Vomiting Last Admin: 12/02/23 11:31 Dose: 4 mg Polyethylene Glycol (Polyethylene Glycol 3350 17 Gm Powd.Pack) 17 gm PO DAILY [facility] Last Admin: 02/09/24 09:22 Dose: Not Given Risperidone (Risperidone 2 Mg Tablet) 2 mg PO BEDTIME [facility] Last Admin: 02/08/24 21:26 Dose: 2 mg Senna (Sennosides 8.6 Mg Tablet) 8.6 mg PO BEDTIME [facility] Last Admin: 02/08/24 21:27 Dose: 8.6 mg Vortioxetine (Vortioxetine Hydrobromide 5 Mg Tablet) 5 mg PO DAILY [facility] Last Admin: 02/09/24 09:16 Dose: 5 mg Allergies Allergies Allergy/AdvReac Type Severity Reaction Status Date / Time omeprazole Allergy Unknown Verified 10/30/23 00:09 Assessment & Plan Assessment & Plan (1) Schizophrenia: Status: Acute Code(s): F20.9 - Schizophrenia, unspecified (2) Failure to thrive in adult: Status: Acute Code(s): R62.7 - Adult failure to thrive Plan The patient is a 63-year-old male with a past history of schizophrenia who had been in and out of several facilities in the last year with severe hypoactive behavior, catatonic like symptoms and chronic noncompliance who needed to go for [facility] 8 for ECT. Even though that he had been treated with antipsychotics he remains still internally preoccupied. Plan 01/22/2024: No changes to current plan. Will add MiraLax 01/22: no changes 01/23 continue tx 01/24 continue tx. 01/25 continue tx 01/27 continue tx. 01/28: Continue current regimen and plans 01/29: Continue current regimen and plans. 01/30 continue tx. awaiting guardianship. 01/31 continue tx. 02/01 continue tx. 02/02 continue tx. 02/03 continue tx. 02/06 continue tx. 02/08: stable presentation. continue current mgmt. Reason for continued inpatient stay Substantial Risk for: inability to function Time Spent With Patient Time: Total time managing care of this patient today ____ minutes.
[2024-02-09 20:00] VITALS: BP 106/64; PULSE 86; RESP 18; TEMP 36.1; O2SAT 96
[2024-02-09] MEDS: risperiDONE 2 MG TABLET PO (20:47)
[2024-02-09] MEDS: Mirtazapine 7.5 MG TABLET PO (20:47)
[2024-02-09] MEDS: Sennosides 8.6 MG TABLET PO (20:47)
[2024-02-10 07:55] VITALS: BP 107/72; PULSE 94; RESP 18; TEMP 37; O2SAT 97
[2024-02-10] MEDS: polyethylene glycoL 3350 17 GM POWD.PACK PO (08:23)
[2024-02-10] MEDS: Vortioxetine Hydrobromide 5 MG TABLET PO (08:24)
[2024-02-10] MEDS: Famotidine 20 MG TABLET PO (08:24)
[2024-02-10] MEDS: Memantine HCl 5 MG TABLET PO ×2 (08:24→20:28)
[2024-02-10] MEDS: modafiniL 100 MG TABLET PO (08:24)
[2024-02-10 09:08] VITALS: BMI 17.2
--- NOTE | 2024-02-10 16:27 | HO.PSYCHPN ---
Subjective Subjective Date of Service: 02/10/24 Reason For Visit: Schizoaffective disorder, unspecified type Interim History: no change in presentation. no requests or complaints. per staff, no notable events. withdrawn, poor PO intake. Mental Status Exam Mental Status Exam Patient Appearance: Appropriate Patient Orientation: Person and Situation Level of Consciousness: Drowsy Patient Behavior: Guarded and Passive Mood Description: Withdrawn Affect Description: Blunted Patient Cognition Impaired: Yes Ability to Follow Directions: Good Speech Pattern: Clear Diagnostics Vital Signs (24Hr): Vital Signs - 24 hr 02/09/24 20:00 02/10/24 07:55 Temperature 97 F 98.6 F Pulse Rate 86 94 Respiratory Rate 18 18 Blood Pressure 106/64 107/72 Pulse Oximetry 96 97 Oxygen Delivery Method Room Air Room Air BMI result Body Mass Index 17.2 Labs 01/18/24 08:02 01/18/24 08:02 Imaging Radiology Impressions: ITS Impressions Chest X-Ray 11/14/23 15:16 IMPRESSION: No evidence of acute disease. No pulmonary mass, pneumonia or pleural effusion. Chest CT 12/21/23 14:32 IMPRESSION: 1. No focal infiltrate is seen. 2. A 4 mm noncalcified subpleural nodule is seen within the posterior segment of the right upper lobe. According to the UPDATED 2017 Fleischner Society recommendations, the advised follow-up imaging for solid nodules < 6 mm is: LOW RISK PATIENT: No routine follow-up. HIGH RISK PATIENT: Optional CT at 12 months. 3. There is no thoracic lymphadenopathy or pleural effusion. 4. There is a marked kyphoscoliosis. No acute or aggressive osseous lesion is seen. 5. There is mild cholelithiasis. Fleischner guidelines were followed. KUB X-Ray 01/17/24 10:57 IMPRESSION: Multiple prominent, distended air-filled loops of small and large bowel. [id number] amount of stool in the colon. Correlation with clinical exam recommended to determine further management including possible additional imaging with CT scan of the abdomen and pelvis if abdominal pathology is suspected. This study was presented today January 19, 2024 for interpretation. Stat results provided at this time as requested by referring provider. Medications Medications Current Medications Famotidine (Famotidine 20 Mg Tablet) 20 mg PO DAILY [facility] Last Admin: 02/10/24 08:24 Dose: 20 mg Loperamide HCl (Loperamide Hcl 2 Mg Capsule) 2 mg PO Q4H PRN PRN Reason: loose stools Last Admin: 01/13/24 15:22 Dose: 2 mg Memantine (Memantine Hcl 5 Mg Tablet) 5 mg PO BID [facility] Last Admin: 02/10/24 08:24 Dose: 5 mg Mirtazapine (Mirtazapine 7.5 Mg Tablet) 7.5 mg PO BEDTIME [facility] Last Admin: 02/09/24 20:47 Dose: 7.5 mg Modafinil (Modafinil 100 Mg Tablet) 100 mg PO DAILY [facility] Last Admin: 02/10/24 08:24 Dose: 100 mg Ondansetron HCl (Ondansetron Odt 4 Mg Tab.Rapdis) 4 mg TRANSLINGU Q8H PRN PRN Reason: Nausea and Vomiting Last Admin: 12/02/23 11:31 Dose: 4 mg Polyethylene Glycol (Polyethylene Glycol 3350 17 Gm Powd.Pack) 17 gm PO DAILY [facility] Last Admin: 02/10/24 08:23 Dose: 17 gm Risperidone (Risperidone 2 Mg Tablet) 2 mg PO BEDTIME [facility] Last Admin: 02/09/24 20:47 Dose: 2 mg Senna (Sennosides 8.6 Mg Tablet) 8.6 mg PO BEDTIME [facility] Last Admin: 02/09/24 20:47 Dose: 8.6 mg Vortioxetine (Vortioxetine Hydrobromide 5 Mg Tablet) 5 mg PO DAILY [facility] Last Admin: 02/10/24 08:24 Dose: 5 mg Allergies Allergies Allergy/AdvReac Type Severity Reaction Status Date / Time omeprazole Allergy Unknown Verified 10/30/23 00:09 Assessment & Plan Assessment & Plan (1) Schizophrenia: Status: Acute Code(s): F20.9 - Schizophrenia, unspecified (2) Failure to thrive in adult: Status: Acute Code(s): R62.7 - Adult failure to thrive Plan The patient is a 63-year-old male with a past history of schizophrenia who had been in and out of several facilities in the last year with severe hypoactive behavior, catatonic like symptoms and chronic noncompliance who needed to go for [facility] 8 for ECT. Even though that he had been treated with antipsychotics he remains still internally preoccupied. Plan 01/22/2024: No changes to current plan. Will add MiraLax 01/22: no changes 01/23 continue tx 01/24 continue tx. 01/25 continue tx 01/27 continue tx. 01/28: Continue current regimen and plans 01/29: Continue current regimen and plans. 01/30 continue tx. awaiting guardianship. 01/31 continue tx. 02/01 continue tx. 02/02 continue tx. 02/03 continue tx. 02/06 continue tx. 02/08: stable presentation. continue current mgmt. 02/09: no change Reason for continued inpatient stay Substantial Risk for: inability to function and med/psych decompensation Time Spent With Patient Time: Total time managing care of this patient today ____ minutes.
[2024-02-10 20:00] VITALS: BP 85/59; PULSE 84; RESP 16; TEMP 36.1; O2SAT 96
[2024-02-10] MEDS: risperiDONE 2 MG TABLET PO (20:28)
[2024-02-10] MEDS: Sennosides 8.6 MG TABLET PO (20:28)
[2024-02-10] MEDS: Mirtazapine 7.5 MG TABLET PO (20:28)
[2024-02-11 08:28] VITALS: BP 117/63; PULSE 97; RESP 16; TEMP 36.2; O2SAT 94
[2024-02-11] MEDS: modafiniL 100 MG TABLET PO (09:22)
[2024-02-11] MEDS: Vortioxetine Hydrobromide 5 MG TABLET PO (09:22)
[2024-02-11] MEDS: Famotidine 20 MG TABLET PO (09:22)
[2024-02-11] MEDS: Memantine HCl 5 MG TABLET PO ×2 (09:23→20:31)
[2024-02-11 10:21] LABS: MANUAL DIFF FLAG NO
[2024-02-11 10:28] LABS: Basophils Percent Auto 0.1 % (0-2); Eosinophils Percent Auto 0.3 % (0-4); Hemoglobin 13.7 g/dl (14.0-18.0); Imm Gran Abs Auto 0.04 X10*3/uL (0.00-0.03); Imm Gran Pct Auto 0.5 % (0.0-0.4); Lymphocytes Absolute Auto 1.1 X10*3/uL (1.2-4.9); Lymphocytes Percent Auto 13.9 % (20-40); Mean Corpuscular Hemoglobin 36.1 pg (27.0-33.0); Mean Corpuscular Volume 97.6 fL (80.0-98.0); Mean Platelet Volume 10.2 fL (9.4-12.4); Monocytes Absolute Auto 1.1 X10*3/uL (0.1-1.2); Monocytes Percent Auto 14.8 % (2-11); Neutrophils Absolute Auto 5.4 x10*3/uL (2.0-8.3); Neutrophils Percent Auto 70.4 % (45-73); Platelet Count 189 X10*3/uL (160-400); Red Blood Count 3.79 X10*6/uL (4.60-5.80); Red Cell Distribution Width 12.1 % (11.0-16.0); White Blood Count 7.6 X10*3/uL (4.8-10.8)
[2024-02-11] MEDS: Milk of Magnesia 30 ML ORAL.SUSP PO (11:39)
--- NOTE | 2024-02-11 12:26 | PC.NURSE ---
Patient complaining of constipation but adamantly refusing Miralax because he doesn't like the taste. MOM order receiced and given during lunch. Patient only drank some chocolate milk for lunch and went back to bed.
--- NOTE | 2024-02-11 15:58 | P.PNPSI_ITS ---
Subjective Subjective Date of Service: 02/11/24 Reason For Visit: Schizoaffective disorder, unspecified type Interim History: raised torso off bed today, more clearly vocal. otherwise no change in presentation. per staff, no notable events or behaviors. Mental Status Exam Mental Status Exam Patient Appearance: Appropriate Patient Orientation: Person and Situation Level of Consciousness: Drowsy Patient Behavior: Guarded and Passive Mood Description: Withdrawn Affect Description: Blunted Patient Cognition Impaired: Yes Ability to Follow Directions: Good Speech Pattern: Clear Diagnostics Vital Signs (24Hr): Vital Signs - 24 hr 02/10/24 20:00 02/11/24 08:28 Temperature 97 F 97.1 F Pulse Rate 84 97 Respiratory Rate 16 16 Blood Pressure 85/59 L 117/63 Pulse Oximetry 96 94 Oxygen Delivery Method Room Air Room Air BMI result Body Mass Index 17.2 Labs 02/11/24 10:12 01/18/24 08:02 Labs: Laboratory Results - last 48 hr 02/11/24 10:12 WBC 7.6 RBC 3.79 L Hgb 13.7 L Hct 37.0 L MCV 97.6 MCH 36.1 H MCHC 37.0 H RDW 12.1 Plt Count 189 MPV 10.2 Immature Gran % (Auto) 0.5 H Neut % (Auto) 70.4 Lymph % (Auto) 13.9 L [place] % (Auto) 14.8 H Eos % (Auto) 0.3 Baso % (Auto) 0.1 Lymph # (Auto) 1.1 L [place] # (Auto) 1.1 Eos # (Auto) 0.0 Baso # (Auto) 0.0 Abs Immat Gran (auto) 0.04 H Absolute Neuts (auto) 5.4 Absolute Nucleated RBC 0.000 Nucleated RBC % (auto) 0.0 Imaging Radiology Impressions: ITS Impressions Chest X-Ray 11/14/23 15:16 IMPRESSION: No evidence of acute disease. No pulmonary mass, pneumonia or pleural effusion. Chest CT 12/21/23 14:32 IMPRESSION: 1. No focal infiltrate is seen. 2. A 4 mm noncalcified subpleural nodule is seen within the posterior segment of the right upper lobe. According to the UPDATED 2017 Fleischner Society recommendations, the advised follow-up imaging for solid nodules < 6 mm is: LOW RISK PATIENT: No routine follow-up. HIGH RISK PATIENT: Optional CT at 12 months. 3. There is no thoracic lymphadenopathy or pleural effusion. 4. There is a marked kyphoscoliosis. No acute or aggressive osseous lesion is seen. 5. There is mild cholelithiasis. Fleischner guidelines were followed. KUB X-Ray 01/17/24 10:57 IMPRESSION: Multiple prominent, distended air-filled loops of small and large bowel. [id number] amount of stool in the colon. Correlation with clinical exam recommended to determine further management including possible additional imaging with CT scan of the abdomen and pelvis if abdominal pathology is suspected. This study was presented today January 19, 2024 for interpretation. Stat results provided at this time as requested by referring provider. Medications Medications Current Medications Famotidine (Famotidine 20 Mg Tablet) 20 mg PO DAILY [facility] Last Admin: 02/11/24 09:22 Dose: 20 mg Loperamide HCl (Loperamide Hcl 2 Mg Capsule) 2 mg PO Q4H PRN PRN Reason: loose stools Last Admin: 01/13/24 15:22 Dose: 2 mg Magnesium Hydroxide (Milk Of Magnesia 30 Ml Oral.Susp) 30 ml PO BID PRN PRN Reason: Constipation Last Admin: 02/11/24 11:39 Dose: 30 ml Memantine (Memantine Hcl 5 Mg Tablet) 5 mg PO BID [facility] Last Admin: 02/11/24 09:23 Dose: 5 mg Mirtazapine (Mirtazapine 7.5 Mg Tablet) 7.5 mg PO BEDTIME [facility] Last Admin: 02/10/24 20:28 Dose: 7.5 mg Modafinil (Modafinil 100 Mg Tablet) 100 mg PO DAILY [facility] Last Admin: 02/11/24 09:22 Dose: 100 mg Ondansetron HCl (Ondansetron Odt 4 Mg Tab.Rapdis) 4 mg TRANSLINGU Q8H PRN PRN Reason: Nausea and Vomiting Last Admin: 12/02/23 11:31 Dose: 4 mg Polyethylene Glycol (Polyethylene Glycol 3350 17 Gm Powd.Pack) 17 gm PO DAILY [facility] Last Admin: 02/11/24 09:26 Dose: Not Given Risperidone (Risperidone 2 Mg Tablet) 2 mg PO BEDTIME [facility] Last Admin: 02/10/24 20:28 Dose: 2 mg Senna (Sennosides 8.6 Mg Tablet) 8.6 mg PO BEDTIME [facility] Last Admin: 02/10/24 20:28 Dose: 8.6 mg Vortioxetine (Vortioxetine Hydrobromide 5 Mg Tablet) 5 mg PO DAILY [facility] Last Admin: 02/11/24 09:22 Dose: 5 mg Allergies Allergies Allergy/AdvReac Type Severity Reaction Status Date / Time omeprazole Allergy Unknown Verified 10/30/23 00:09 Assessment & Plan Assessment & Plan (1) Schizophrenia: Status: Acute Code(s): F20.9 - Schizophrenia, unspecified (2) Failure to thrive in adult: Status: Acute Code(s): R62.7 - Adult failure to thrive Plan The patient is a 63-year-old male with a past history of schizophrenia who had been in and out of several facilities in the last year with severe hypoactive behavior, catatonic like symptoms and chronic noncompliance who needed to go for [facility] 8 for ECT. Even though that he had been treated with antipsychotics he remains still internally preoccupied. Plan 01/22/2024: No changes to current plan. Will add MiraLax 01/22: no changes 01/23 continue tx 01/24 continue tx. 01/25 continue tx 01/27 continue tx. 01/28: Continue current regimen and plans 01/29: Continue current regimen and plans. 01/30 continue tx. awaiting guardianship. 01/31 continue tx. 02/01 continue tx. 02/02 continue tx. 02/03 continue tx. 02/06 continue tx. 02/08: stable presentation. continue current mgmt. 02/09: no change 02/10: no change Reason for continued inpatient stay Substantial Risk for: inability to function Time Spent With Patient Time: Total time managing care of this patient today ____ minutes.
[2024-02-11 20:00] VITALS: BP 94/55; PULSE 80; RESP 16; TEMP 36.7; O2SAT 94
[2024-02-11] MEDS: Mirtazapine 7.5 MG TABLET PO (20:31)
[2024-02-11] MEDS: risperiDONE 2 MG TABLET PO (20:31)
[2024-02-11] MEDS: Sennosides 8.6 MG TABLET PO (20:31)
[2024-02-12 08:30] VITALS: BP 100/61; PULSE 86; RESP 14; TEMP 37.1; O2SAT 95
[2024-02-12] MEDS: modafiniL 100 MG TABLET PO (08:49)
[2024-02-12] MEDS: Memantine HCl 5 MG TABLET PO ×2 (08:49→21:17)
[2024-02-12] MEDS: Famotidine 20 MG TABLET PO (08:49)
[2024-02-12] MEDS: polyethylene glycoL 3350 17 GM POWD.PACK PO (08:49)
[2024-02-12] MEDS: Vortioxetine Hydrobromide 5 MG TABLET PO (08:49)
--- NOTE | 2024-02-12 09:25 | HO.PSYCHPN ---
Subjective Subjective Date of Service: 02/12/24 Reason For Visit: Schizoaffective disorder, unspecified type Subjective Notes: Conditional Voluntary Interim History: The nursing staff reported the patient remains with flat affect, he took his medications in his room most of the time slept 7 hours. On interview the patient denies new symptoms, waiting for placement. Mental Status Exam Mental Status Exam Patient Appearance: Appropriate Patient Orientation: Person and Situation Level of Consciousness: Awake Patient Behavior: Guarded and Passive Mood Description: Withdrawn Affect Description: Constricted Patient Cognition Impaired: Yes Ability to Follow Directions: Good Speech Pattern: Clear Hallucinations: None Delusions: Ideas of Reference Thought Process: Distracted and Slowed Thinking Thought Content: positive for [place] and positive for Poverty of Content Judgement: Poor Diagnostics Vital Signs (24Hr): Vital Signs - 24 hr 02/11/24 20:00 02/12/24 08:30 Temperature 98.1 F 98.7 F Pulse Rate 80 86 Respiratory Rate 16 14 Blood Pressure 94/55 L 100/61 Pulse Oximetry 94 95 Oxygen Delivery Method Room Air Room Air BMI result Body Mass Index 17.2 Labs 02/11/24 10:12 01/18/24 08:02 Labs: Laboratory Results - last 48 hr 02/11/24 10:12 WBC 7.6 RBC 3.79 L Hgb 13.7 L Hct 37.0 L MCV 97.6 MCH 36.1 H MCHC 37.0 H RDW 12.1 Plt Count 189 MPV 10.2 Immature Gran % (Auto) 0.5 H Neut % (Auto) 70.4 Lymph % (Auto) 13.9 L [place] % (Auto) 14.8 H Eos % (Auto) 0.3 Baso % (Auto) 0.1 Lymph # (Auto) 1.1 L [place] # (Auto) 1.1 Eos # (Auto) 0.0 Baso # (Auto) 0.0 Abs Immat Gran (auto) 0.04 H Absolute Neuts (auto) 5.4 Absolute Nucleated RBC 0.000 Nucleated RBC % (auto) 0.0 Imaging Radiology Impressions: ITS Impressions Chest X-Ray 11/14/23 15:16 IMPRESSION: No evidence of acute disease. No pulmonary mass, pneumonia or pleural effusion. Chest CT 12/21/23 14:32 IMPRESSION: 1. No focal infiltrate is seen. 2. A 4 mm noncalcified subpleural nodule is seen within the posterior segment of the right upper lobe. According to the UPDATED 2017 Fleischner Society recommendations, the advised follow-up imaging for solid nodules < 6 mm is: LOW RISK PATIENT: No routine follow-up. HIGH RISK PATIENT: Optional CT at 12 months. 3. There is no thoracic lymphadenopathy or pleural effusion. 4. There is a marked kyphoscoliosis. No acute or aggressive osseous lesion is seen. 5. There is mild cholelithiasis. Fleischner guidelines were followed. KUB X-Ray 01/17/24 10:57 IMPRESSION: Multiple prominent, distended air-filled loops of small and large bowel. [id number] amount of stool in the colon. Correlation with clinical exam recommended to determine further management including possible additional imaging with CT scan of the abdomen and pelvis if abdominal pathology is suspected. This study was presented today January 19, 2024 for interpretation. Stat results provided at this time as requested by referring provider. Medications Medications Current Medications Famotidine (Famotidine 20 Mg Tablet) 20 mg PO DAILY [facility] Last Admin: 02/12/24 08:49 Dose: 20 mg Loperamide HCl (Loperamide Hcl 2 Mg Capsule) 2 mg PO Q4H PRN PRN Reason: loose stools Last Admin: 01/13/24 15:22 Dose: 2 mg Magnesium Hydroxide (Milk Of Magnesia 30 Ml Oral.Susp) 30 ml PO BID PRN PRN Reason: Constipation Last Admin: 02/11/24 11:39 Dose: 30 ml Memantine (Memantine Hcl 5 Mg Tablet) 5 mg PO BID [facility] Last Admin: 02/12/24 08:49 Dose: 5 mg Mirtazapine (Mirtazapine 7.5 Mg Tablet) 7.5 mg PO BEDTIME [facility] Last Admin: 02/11/24 20:31 Dose: 7.5 mg Modafinil (Modafinil 100 Mg Tablet) 100 mg PO DAILY [facility] Last Admin: 02/12/24 08:49 Dose: 100 mg Ondansetron HCl (Ondansetron Odt 4 Mg Tab.Rapdis) 4 mg TRANSLINGU Q8H PRN PRN Reason: Nausea and Vomiting Last Admin: 12/02/23 11:31 Dose: 4 mg Polyethylene Glycol (Polyethylene Glycol 3350 17 Gm Powd.Pack) 17 gm PO DAILY [facility] Last Admin: 02/12/24 08:49 Dose: 17 gm Risperidone (Risperidone 2 Mg Tablet) 2 mg PO BEDTIME [facility] Last Admin: 02/11/24 20:31 Dose: 2 mg Senna (Sennosides 8.6 Mg Tablet) 8.6 mg PO BEDTIME [facility] Last Admin: 02/11/24 20:31 Dose: 8.6 mg Vortioxetine (Vortioxetine Hydrobromide 5 Mg Tablet) 5 mg PO DAILY [facility] Last Admin: 02/12/24 08:49 Dose: 5 mg Allergies Allergies Allergy/AdvReac Type Severity Reaction Status Date / Time omeprazole Allergy Unknown Verified 10/30/23 00:09 Assessment & Plan Assessment & Plan (1) Schizophrenia: Status: Acute Code(s): F20.9 - Schizophrenia, unspecified (2) Failure to thrive in adult: Status: Acute Code(s): R62.7 - Adult failure to thrive Plan The patient is a 63-year-old male with a past history of schizophrenia who had been in and out of several facilities in the last year with severe hypoactive behavior, catatonic like symptoms and chronic noncompliance who needed to go for Section 7 and 8 for ECT. Even though that he had been treated with antipsychotics he remains still internally preoccupied. Plan 01/22/2024: No changes to current plan. Will add MiraLax 01/22: no changes 01/23 continue tx 01/24 continue tx. 01/25 continue tx 01/27 continue tx. 01/28: Continue current regimen and plans 01/29: Continue current regimen and plans. 01/30 continue tx. awaiting guardianship. 01/31 continue tx. 02/01 continue tx. 02/02 continue tx. 02/03 continue tx. 02/06 continue tx. 02/08: stable presentation. continue current mgmt. 02/09: no change 02/10: no change 02/11 continue same treatment Reason for continued inpatient stay Substantial Risk for: inability to function, rapid decompensation and med/psych decompensation Time Spent With Patient Time: Total time managing care of this patient today _20___ minutes.
[2024-02-12 20:00] VITALS: BP 102/56; PULSE 92; RESP 16; TEMP 36.8; O2SAT 94
[2024-02-12] MEDS: Mirtazapine 7.5 MG TABLET PO (21:17)
[2024-02-12] MEDS: risperiDONE 2 MG TABLET PO (21:17)
[2024-02-12] MEDS: Sennosides 8.6 MG TABLET PO (21:17)
--- NOTE | 2024-02-13 08:40 | HO.PSYCHPN ---
Subjective Subjective Date of Service: 02/13/24 Reason For Visit: Schizoaffective disorder, unspecified type Subjective Notes: Section 7 and Section 8 Interim History: The nursing staff reported the patient remained most of the time on his room, slept well fully compliant with treatment. No changes in his mental status. On interview the patient denies new symptoms, waiting for placement. Mental Status Exam Mental Status Exam Patient Appearance: Appropriate Patient Orientation: Person and Situation Level of Consciousness: Awake Patient Behavior: Guarded and Passive Mood Description: Withdrawn Affect Description: Constricted Patient Cognition Impaired: Yes Ability to Follow Directions: Good Speech Pattern: Clear Hallucinations: None Delusions: Paranoid Ideation and Ideas of Reference Thought Process: Distracted and Slowed Thinking Thought Content: positive for [place] and positive for Poverty of Content Judgement: Poor Diagnostics Vital Signs (24Hr): Vital Signs - 24 hr 02/12/24 20:00 Temperature 98.3 F Pulse Rate 92 Respiratory Rate 16 Blood Pressure 102/56 L Pulse Oximetry 94 Oxygen Delivery Method Room Air BMI result Body Mass Index 17.2 Labs 02/11/24 10:12 01/18/24 08:02 Labs: Laboratory Results - last 48 hr 02/11/24 10:12 WBC 7.6 RBC 3.79 L Hgb 13.7 L Hct 37.0 L MCV 97.6 MCH 36.1 H MCHC 37.0 H RDW 12.1 Plt Count 189 MPV 10.2 Immature Gran % (Auto) 0.5 H Neut % (Auto) 70.4 Lymph % (Auto) 13.9 L [place] % (Auto) 14.8 H Eos % (Auto) 0.3 Baso % (Auto) 0.1 Lymph # (Auto) 1.1 L [place] # (Auto) 1.1 Eos # (Auto) 0.0 Baso # (Auto) 0.0 Abs Immat Gran (auto) 0.04 H Absolute Neuts (auto) 5.4 Absolute Nucleated RBC 0.000 Nucleated RBC % (auto) 0.0 Imaging Radiology Impressions: ITS Impressions Chest X-Ray 11/14/23 15:16 IMPRESSION: No evidence of acute disease. No pulmonary mass, pneumonia or pleural effusion. Chest CT 12/21/23 14:32 IMPRESSION: 1. No focal infiltrate is seen. 2. A 4 mm noncalcified subpleural nodule is seen within the posterior segment of the right upper lobe. According to the UPDATED 2017 Fleischner Society recommendations, the advised follow-up imaging for solid nodules < 6 mm is: LOW RISK PATIENT: No routine follow-up. HIGH RISK PATIENT: Optional CT at 12 months. 3. There is no thoracic lymphadenopathy or pleural effusion. 4. There is a marked kyphoscoliosis. No acute or aggressive osseous lesion is seen. 5. There is mild cholelithiasis. Fleischner guidelines were followed. KUB X-Ray 01/17/24 10:57 IMPRESSION: Multiple prominent, distended air-filled loops of small and large bowel. [id number] amount of stool in the colon. Correlation with clinical exam recommended to determine further management including possible additional imaging with CT scan of the abdomen and pelvis if abdominal pathology is suspected. This study was presented today January 19, 2024 for interpretation. Stat results provided at this time as requested by referring provider. Medications Medications Current Medications Famotidine (Famotidine 20 Mg Tablet) 20 mg PO DAILY [facility] Last Admin: 02/12/24 08:49 Dose: 20 mg Loperamide HCl (Loperamide Hcl 2 Mg Capsule) 2 mg PO Q4H PRN PRN Reason: loose stools Last Admin: 01/13/24 15:22 Dose: 2 mg Magnesium Hydroxide (Milk Of Magnesia 30 Ml Oral.Susp) 30 ml PO BID PRN PRN Reason: Constipation Last Admin: 02/11/24 11:39 Dose: 30 ml Memantine (Memantine Hcl 5 Mg Tablet) 5 mg PO BID [facility] Last Admin: 02/12/24 21:17 Dose: 5 mg Mirtazapine (Mirtazapine 7.5 Mg Tablet) 7.5 mg PO BEDTIME [facility] Last Admin: 02/12/24 21:17 Dose: 7.5 mg Modafinil (Modafinil 100 Mg Tablet) 100 mg PO DAILY [facility] Last Admin: 02/12/24 08:49 Dose: 100 mg Polyethylene Glycol (Polyethylene Glycol 3350 17 Gm Powd.Pack) 17 gm PO DAILY [facility] Last Admin: 02/12/24 08:49 Dose: 17 gm Risperidone (Risperidone 2 Mg Tablet) 2 mg PO BEDTIME [facility] Last Admin: 02/12/24 21:17 Dose: 2 mg Senna (Sennosides 8.6 Mg Tablet) 8.6 mg PO BEDTIME [facility] Last Admin: 02/12/24 21:17 Dose: 8.6 mg Vortioxetine (Vortioxetine Hydrobromide 5 Mg Tablet) 5 mg PO DAILY [facility] Last Admin: 02/12/24 08:49 Dose: 5 mg Allergies Allergies Allergy/AdvReac Type Severity Reaction Status Date / Time omeprazole Allergy Unknown Verified 10/30/23 00:09 Assessment & Plan Assessment & Plan (1) Schizophrenia: Status: Acute Code(s): F20.9 - Schizophrenia, unspecified (2) Failure to thrive in adult: Status: Acute Code(s): R62.7 - Adult failure to thrive Plan The patient is a 63-year-old male with a past history of schizophrenia who had been in and out of several facilities in the last year with severe hypoactive behavior, catatonic like symptoms and chronic noncompliance who needed to go for Section 7 and 8 for ECT. Even though that he had been treated with antipsychotics he remains still internally preoccupied. Plan 01/22/2024: No changes to current plan. Will add MiraLax 01/22: no changes 01/23 continue tx 01/24 continue tx. 01/25 continue tx 01/27 continue tx. 01/28: Continue current regimen and plans 01/29: Continue current regimen and plans. 01/30 continue tx. awaiting guardianship. 01/31 continue tx. 02/01 continue tx. 02/02 continue tx. 02/03 continue tx. 02/06 continue tx. 02/08: stable presentation. continue current mgmt. 02/09: no change 02/10: no change 02/11 continue same treatment 02/12 continue same treatment Reason for continued inpatient stay Substantial Risk for: inability to function, rapid decompensation and med/psych decompensation Time Spent With Patient Time: Total time managing care of this patient today _20___ minutes.
[2024-02-13 09:01] VITALS: BP 155/81; PULSE 78; RESP 16; TEMP 36.9; O2SAT 93
[2024-02-13] MEDS: Memantine HCl 5 MG TABLET PO (09:10)
[2024-02-13] MEDS: modafiniL 100 MG TABLET PO (09:10)
[2024-02-13] MEDS: Famotidine 20 MG TABLET PO (09:10)
[2024-02-13] MEDS: polyethylene glycoL 3350 17 GM POWD.PACK PO (09:10)
[2024-02-13] MEDS: Vortioxetine Hydrobromide 5 MG TABLET PO (09:10)
[2024-02-13 20:00] VITALS: BP 88/51; PULSE 84; RESP 17; TEMP 37.3; O2SAT 95
[2024-02-14 08:00] VITALS: BP 84/50; PULSE 86; RESP 14; TEMP 36.1; O2SAT 95
--- NOTE | 2024-02-14 09:54 | P.PNPSI_ITS ---
Subjective Subjective Date of Service: 02/14/24 Reason For Visit: Schizoaffective disorder, unspecified type Subjective Notes: Section 8 Interim History: Pt refused medications this morning. He reports he may take later but not sure he feels like they are helpful. He denies SI/HI. No overt delusional content or psychosis other than mistrust of tx. Pt ambulating at times on the unit. He usually drinks ensure. Review of Systems Review of Systems Constipation improving Yes all other systems are reviewed and are negative and Unobtainable due to mental status Mental Status Exam Mental Status Exam Patient Appearance: Appropriate Patient Orientation: Person and Situation Level of Consciousness: Awake Patient Behavior: Guarded and Passive Mood Description: Withdrawn Affect Description: Constricted Patient Cognition Impaired: Yes Ability to Follow Directions: Good Speech Pattern: Clear Diagnostics Vital Signs (24Hr): Vital Signs - 24 hr 02/13/24 20:00 Temperature 99.1 F Pulse Rate 84 Respiratory Rate 17 Blood Pressure 88/51 L Pulse Oximetry 95 Oxygen Delivery Method Room Air BMI result Body Mass Index 17.2 Labs 02/11/24 10:12 01/18/24 08:02 Imaging Radiology Impressions: ITS Impressions Chest X-Ray 11/14/23 15:16 IMPRESSION: No evidence of acute disease. No pulmonary mass, pneumonia or pleural effusion. Chest CT 12/21/23 14:32 IMPRESSION: 1. No focal infiltrate is seen. 2. A 4 mm noncalcified subpleural nodule is seen within the posterior segment of the right upper lobe. According to the UPDATED 2017 Fleischner Society recommendations, the advised follow-up imaging for solid nodules < 6 mm is: LOW RISK PATIENT: No routine follow-up. HIGH RISK PATIENT: Optional CT at 12 months. 3. There is no thoracic lymphadenopathy or pleural effusion. 4. There is a marked kyphoscoliosis. No acute or aggressive osseous lesion is seen. 5. There is mild cholelithiasis. Fleischner guidelines were followed. KUB X-Ray 01/17/24 10:57 IMPRESSION: Multiple prominent, distended air-filled loops of small and large bowel. [id number] amount of stool in the colon. Correlation with clinical exam recommended to determine further management including possible additional imaging with CT scan of the abdomen and pelvis if abdominal pathology is suspected. This study was presented today January 19, 2024 for interpretation. Stat results provided at this time as requested by referring provider. Medications Medications Current Medications Famotidine (Famotidine 20 Mg Tablet) 20 mg PO DAILY [facility] Last Admin: 02/14/24 09:19 Dose: Not Given Loperamide HCl (Loperamide Hcl 2 Mg Capsule) 2 mg PO Q4H PRN PRN Reason: loose stools Last Admin: 01/13/24 15:22 Dose: 2 mg Magnesium Hydroxide (Milk Of Magnesia 30 Ml Oral.Susp) 30 ml PO BID PRN PRN Reason: Constipation Last Admin: 02/11/24 11:39 Dose: 30 ml Memantine (Memantine Hcl 5 Mg Tablet) 5 mg PO BID [facility] Last Admin: 02/14/24 09:19 Dose: Not Given Mirtazapine (Mirtazapine 7.5 Mg Tablet) 7.5 mg PO BEDTIME [facility] Last Admin: 02/13/24 21:29 Dose: Not Given Modafinil (Modafinil 100 Mg Tablet) 100 mg PO DAILY [facility] Last Admin: 02/14/24 09:19 Dose: Not Given Polyethylene Glycol (Polyethylene Glycol 3350 17 Gm Powd.Pack) 17 gm PO DAILY [facility] Last Admin: 02/14/24 09:19 Dose: Not Given Risperidone (Risperidone 2 Mg Tablet) 2 mg PO BEDTIME [facility] Last Admin: 02/13/24 21:29 Dose: Not Given Senna (Sennosides 8.6 Mg Tablet) 8.6 mg PO BEDTIME [facility] Last Admin: 02/13/24 21:29 Dose: Not Given Vortioxetine (Vortioxetine Hydrobromide 5 Mg Tablet) 5 mg PO DAILY [facility] Last Admin: 02/14/24 09:19 Dose: Not Given Allergies Allergies Allergy/AdvReac Type Severity Reaction Status Date / Time omeprazole Allergy Unknown Verified 10/30/23 00:09 Assessment & Plan Assessment & Plan (1) Schizophrenia: Status: Acute Code(s): F20.9 - Schizophrenia, unspecified (2) Failure to thrive in adult: Status: Acute Code(s): R62.7 - Adult failure to thrive Plan The patient is a 63-year-old male with a past history of schizophrenia who had been in and out of several facilities in the last year with severe hypoactive behavior, catatonic like symptoms and chronic noncompliance who needed to go for Section 7 and 8 for ECT. Even though that he had been treated with antipsychotics he remains still internally preoccupied. Plan 01/22/2024: No changes to current plan. Will add MiraLax 01/22: no changes 01/23 continue tx 01/24 continue tx. 01/25 continue tx 01/27 continue tx. 01/28: Continue current regimen and plans 01/29: Continue current regimen and plans. 01/30 continue tx. awaiting guardianship. 01/31 continue tx. 02/01 continue tx. 02/02 continue tx. 02/03 continue tx. 02/06 continue tx. 02/08: stable presentation. continue current mgmt. 02/09: no change 02/10: no change 02/11 continue same treatment 02/12 continue same treatment 02/13 continue tx. Reason for continued inpatient stay Substantial Risk for: inability to function Time Spent With Patient Time: Total time managing care of this patient today ____ minutes.
[2024-02-14 19:11] VITALS: BP 105/55
[2024-02-14 20:00] VITALS: BP 85/55; PULSE 82; RESP 16; TEMP 37; O2SAT 96
[2024-02-15 07:55] VITALS: BP 85/58; PULSE 88; RESP 18; TEMP 37; O2SAT 95
[2024-02-15] MEDS: polyethylene glycoL 3350 17 GM POWD.PACK PO (08:37)
[2024-02-15] MEDS: Memantine HCl 5 MG TABLET PO ×2 (08:37→20:47)
[2024-02-15] MEDS: modafiniL 100 MG TABLET PO (08:38)
[2024-02-15] MEDS: Famotidine 20 MG TABLET PO (08:38)
[2024-02-15] MEDS: Vortioxetine Hydrobromide 5 MG TABLET PO (08:38)
[2024-02-15 20:00] VITALS: BP 84/52; PULSE 72; TEMP 36.1; O2SAT 96
[2024-02-15] MEDS: Sennosides 8.6 MG TABLET PO (20:47)
[2024-02-15] MEDS: risperiDONE 2 MG TABLET PO (20:47)
[2024-02-15] MEDS: Mirtazapine 7.5 MG TABLET PO (20:47)
[2024-02-16 02:46] VITALS: BP 81/53; PULSE 96
[2024-02-16 02:47] VITALS: BP 82/55; PULSE 107
[2024-02-16 08:00] VITALS: BP 100/66; PULSE 89; RESP 18; TEMP 36.2; O2SAT 96
[2024-02-16] MEDS: Vortioxetine Hydrobromide 5 MG TABLET PO (08:38)
[2024-02-16] MEDS: Famotidine 20 MG TABLET PO (08:38)
[2024-02-16] MEDS: modafiniL 100 MG TABLET PO (08:38)
[2024-02-16] MEDS: Memantine HCl 5 MG TABLET PO ×2 (08:38→20:57)
--- NOTE | 2024-02-16 10:42 | HO.PSYCHPN ---
Subjective Subjective Date of Service: 02/15/24 Reason For Visit: Schizoaffective disorder, unspecified type Subjective Notes: Section 8 Interim History: Pt slept 6hrs. Pt took medications this morning. He reports feeling dizzy at times. BP on low end. will check ortho VS. He reports he wants to go home. This screen writer explained that we are waiting for guardianship and placement. He reports many things are wrong but when asked to elaborate he keeps walking to his room. He is visible for meals, not interacting much with peers or staff unless approach directly and even then he tends to want to end conversations soon. He denies SI/HI. Reminded of court mandated tx. Review of Systems Review of Systems Constipation improving Yes all other systems are reviewed and are negative and Unobtainable due to mental status Mental Status Exam Mental Status Exam Patient Appearance: Appropriate Patient Orientation: Person and Situation Level of Consciousness: Awake Patient Behavior: Guarded and Passive Mood Description: Withdrawn Affect Description: Constricted Patient Cognition Impaired: Yes Ability to Follow Directions: Good Speech Pattern: Clear Diagnostics Vital Signs (24Hr): Vital Signs - 24 hr 02/15/24 20:00 02/16/24 08:00 Temperature 97 F 97.2 F Pulse Rate 72 89 Respiratory Rate 18 Blood Pressure 84/52 L 100/66 Pulse Oximetry 96 96 Oxygen Delivery Method Room Air BMI result Body Mass Index 17.2 Labs 02/11/24 10:12 01/18/24 08:02 Imaging Radiology Impressions: ITS Impressions Chest X-Ray 11/14/23 15:16 IMPRESSION: No evidence of acute disease. No pulmonary mass, pneumonia or pleural effusion. Chest CT 12/21/23 14:32 IMPRESSION: 1. No focal infiltrate is seen. 2. A 4 mm noncalcified subpleural nodule is seen within the posterior segment of the right upper lobe. According to the UPDATED 2017 Fleischner Society recommendations, the advised follow-up imaging for solid nodules < 6 mm is: LOW RISK PATIENT: No routine follow-up. HIGH RISK PATIENT: Optional CT at 12 months. 3. There is no thoracic lymphadenopathy or pleural effusion. 4. There is a marked kyphoscoliosis. No acute or aggressive osseous lesion is seen. 5. There is mild cholelithiasis. Fleischner guidelines were followed. KUB X-Ray 01/17/24 10:57 IMPRESSION: Multiple prominent, distended air-filled loops of small and large bowel. [id number] amount of stool in the colon. Correlation with clinical exam recommended to determine further management including possible additional imaging with CT scan of the abdomen and pelvis if abdominal pathology is suspected. This study was presented today January 19, 2024 for interpretation. Stat results provided at this time as requested by referring provider. Medications Medications Current Medications Famotidine (Famotidine 20 Mg Tablet) 20 mg PO DAILY [facility] Last Admin: 02/16/24 08:38 Dose: 20 mg Loperamide HCl (Loperamide Hcl 2 Mg Capsule) 2 mg PO Q4H PRN PRN Reason: loose stools Last Admin: 01/13/24 15:22 Dose: 2 mg Magnesium Hydroxide (Milk Of Magnesia 30 Ml Oral.Susp) 30 ml PO BID PRN PRN Reason: Constipation Last Admin: 02/11/24 11:39 Dose: 30 ml Memantine (Memantine Hcl 5 Mg Tablet) 5 mg PO BID [facility] Last Admin: 02/16/24 08:38 Dose: 5 mg Mirtazapine (Mirtazapine 7.5 Mg Tablet) 7.5 mg PO BEDTIME [facility] Last Admin: 02/15/24 20:47 Dose: 7.5 mg Modafinil (Modafinil 100 Mg Tablet) 100 mg PO DAILY [facility] Last Admin: 02/16/24 08:38 Dose: 100 mg Polyethylene Glycol (Polyethylene Glycol 3350 17 Gm Powd.Pack) 17 gm PO DAILY [facility] Last Admin: 02/16/24 08:41 Dose: Not Given Risperidone (Risperidone 2 Mg Tablet) 2 mg PO BEDTIME [facility] Last Admin: 02/15/24 20:47 Dose: 2 mg Senna (Sennosides 8.6 Mg Tablet) 8.6 mg PO BEDTIME [facility] Last Admin: 02/15/24 20:47 Dose: 8.6 mg Vortioxetine (Vortioxetine Hydrobromide 5 Mg Tablet) 5 mg PO DAILY [facility] Last Admin: 02/16/24 08:38 Dose: 5 mg Allergies Allergies Allergy/AdvReac Type Severity Reaction Status Date / Time omeprazole Allergy Unknown Verified 10/30/23 00:09 Assessment & Plan Assessment & Plan (1) Schizophrenia: Status: Acute Code(s): F20.9 - Schizophrenia, unspecified (2) Failure to thrive in adult: Status: Acute Code(s): R62.7 - Adult failure to thrive Plan The patient is a 63-year-old male with a past history of schizophrenia who had been in and out of several facilities in the last year with severe hypoactive behavior, catatonic like symptoms and chronic noncompliance who needed to go for Section 7 and 8 for ECT. Even though that he had been treated with antipsychotics he remains still internally preoccupied. Plan 01/22/2024: No changes to current plan. Will add MiraLax 01/22: no changes 01/23 continue tx 01/24 continue tx. 01/25 continue tx 01/27 continue tx. 01/28: Continue current regimen and plans 01/29: Continue current regimen and plans. 01/30 continue tx. awaiting guardianship. 01/31 continue tx. 02/01 continue tx. 02/02 continue tx. 02/03 continue tx. 02/06 continue tx. 02/08: stable presentation. continue current mgmt. 02/09: no change 02/10: no change 02/11 continue same treatment 02/12 continue same treatment 02/13 continue tx. 02/14 continue tx. Reason for continued inpatient stay Substantial Risk for: inability to function Time Spent With Patient Time: Total time managing care of this patient today ____ minutes.
--- NOTE | 2024-02-16 10:50 | P.PNPSI_ITS ---
Subjective Subjective Date of Service: 02/16/24 Reason For Visit: Schizoaffective disorder, unspecified type Subjective Notes: Section 8 Interim History: Pt slept 6hrs.Pt more visible, has been going to some groups, tells this jingle writer that he has to sit in those meetings referring to groups, so he can be discharged, pt reminded that we are pending guardian and placement to facility as he needs significant supports in the community. does not think he needs any treatment, no insight into symptoms or needs. Review of Systems Review of Systems Constipation improving Yes all other systems are reviewed and are negative and Unobtainable due to mental status Mental Status Exam Mental Status Exam Patient Appearance: Appropriate Patient Orientation: Person and Situation Level of Consciousness: Awake Patient Behavior: Guarded and Passive Mood Description: Withdrawn Affect Description: Constricted Patient Cognition Impaired: Yes Ability to Follow Directions: Good Speech Pattern: Clear Diagnostics Vital Signs (24Hr): Vital Signs - 24 hr 02/15/24 20:00 02/16/24 08:00 Temperature 97 F 97.2 F Pulse Rate 72 89 Respiratory Rate 18 Blood Pressure 84/52 L 100/66 Pulse Oximetry 96 96 Oxygen Delivery Method Room Air BMI result Body Mass Index 17.2 Labs 02/11/24 10:12 01/18/24 08:02 Imaging Radiology Impressions: ITS Impressions Chest X-Ray 11/14/23 15:16 IMPRESSION: No evidence of acute disease. No pulmonary mass, pneumonia or pleural effusion. Chest CT 12/21/23 14:32 IMPRESSION: 1. No focal infiltrate is seen. 2. A 4 mm noncalcified subpleural nodule is seen within the posterior segment of the right upper lobe. According to the UPDATED 2017 Fleischner Society recommendations, the advised follow-up imaging for solid nodules < 6 mm is: LOW RISK PATIENT: No routine follow-up. HIGH RISK PATIENT: Optional CT at 12 months. 3. There is no thoracic lymphadenopathy or pleural effusion. 4. There is a marked kyphoscoliosis. No acute or aggressive osseous lesion is seen. 5. There is mild cholelithiasis. Fleischner guidelines were followed. KUB X-Ray 01/17/24 10:57 IMPRESSION: Multiple prominent, distended air-filled loops of small and large bowel. [id number] amount of stool in the colon. Correlation with clinical exam recommended to determine further management including possible additional imaging with CT scan of the abdomen and pelvis if abdominal pathology is suspected. This study was presented today January 19, 2024 for interpretation. Stat results provided at this time as requested by referring provider. Medications Medications Current Medications Famotidine (Famotidine 20 Mg Tablet) 20 mg PO DAILY [facility] Last Admin: 02/16/24 08:38 Dose: 20 mg Loperamide HCl (Loperamide Hcl 2 Mg Capsule) 2 mg PO Q4H PRN PRN Reason: loose stools Last Admin: 01/13/24 15:22 Dose: 2 mg Magnesium Hydroxide (Milk Of Magnesia 30 Ml Oral.Susp) 30 ml PO BID PRN PRN Reason: Constipation Last Admin: 02/11/24 11:39 Dose: 30 ml Memantine (Memantine Hcl 5 Mg Tablet) 5 mg PO BID [facility] Last Admin: 02/16/24 08:38 Dose: 5 mg Mirtazapine (Mirtazapine 7.5 Mg Tablet) 7.5 mg PO BEDTIME [facility] Last Admin: 02/15/24 20:47 Dose: 7.5 mg Modafinil (Modafinil 100 Mg Tablet) 100 mg PO DAILY [facility] Last Admin: 02/16/24 08:38 Dose: 100 mg Polyethylene Glycol (Polyethylene Glycol 3350 17 Gm Powd.Pack) 17 gm PO DAILY [facility] Last Admin: 02/16/24 08:41 Dose: Not Given Risperidone (Risperidone 2 Mg Tablet) 2 mg PO BEDTIME [facility] Last Admin: 02/15/24 20:47 Dose: 2 mg Senna (Sennosides 8.6 Mg Tablet) 8.6 mg PO BEDTIME [facility] Last Admin: 02/15/24 20:47 Dose: 8.6 mg Vortioxetine (Vortioxetine Hydrobromide 5 Mg Tablet) 5 mg PO DAILY [facility] Last Admin: 02/16/24 08:38 Dose: 5 mg Allergies Allergies Allergy/AdvReac Type Severity Reaction Status Date / Time omeprazole Allergy Unknown Verified 10/30/23 00:09 Assessment & Plan Assessment & Plan (1) Schizophrenia: Status: Acute Code(s): F20.9 - Schizophrenia, unspecified (2) Failure to thrive in adult: Status: Acute Code(s): R62.7 - Adult failure to thrive Plan The patient is a 63-year-old male with a past history of schizophrenia who had been in and out of several facilities in the last year with severe hypoactive behavior, catatonic like symptoms and chronic noncompliance who needed to go for Section 7 and 8 for ECT. Even though that he had been treated with antipsychotics he remains still internally preoccupied. Plan 01/22/2024: No changes to current plan. Will add MiraLax 01/22: no changes 01/23 continue tx 01/24 continue tx. 01/25 continue tx 01/27 continue tx. 01/28: Continue current regimen and plans 01/29: Continue current regimen and plans. 01/30 continue tx. awaiting guardianship. 01/31 continue tx. 02/01 continue tx. 02/02 continue tx. 02/03 continue tx. 02/06 continue tx. 02/08: stable presentation. continue current mgmt. 02/09: no change 02/10: no change 02/11 continue same treatment 02/12 continue same treatment 02/13 continue tx. 02/14 continue tx. 02/15 continue tx Reason for continued inpatient stay Substantial Risk for: inability to function Time Spent With Patient Time: Total time managing care of this patient today ____ minutes.
--- NOTE | 2024-02-16 13:40 | MHC.CLN ---
F/U DIET=REGULAR. ENSURE TID PROVIDES 1050 KCALS, 60 G PROTEIN. PATIENT ACCEPTS SUPPLEMENT. DISCONTINUE ENSURE CLEAR TID SINCE PATIENT NOT ACCEPTING. INTAKE USUALLY BITES OF FOOD AND ACCEPTS ENSURE. ENCOURAGE ADDITIONAL SNACKS AND SUPPLEMENTS FROM UNIT KITCHEN. CONTINUE CURRENT DIET, SUPPLEMENTS AND ENCOURAGE INTAKE ABLE.
[2024-02-16 14:45] VITALS: BP 84/53; PULSE 75
--- NOTE | 2024-02-16 15:21 | PM.EVENT ---
Event Note Date of Service: 02/16/24 Event Note: Pt with persistent hypotension. Not infection related, blood pressures low/soft ongoing 1+ months. Orthostatics positive given increase in HR >20 with change in position. NO lightheadedness. Not on any antihypertensives. Tolerating adequate fluids (mostly in form of ensure). Add midodrine 5mg TID, hold if SBP >120. Reach out to hospitalist service for recurrent hypotension Time Spent With Patient Time: Total time managing care of this patient today ____ minutes.
--- NOTE | 2024-02-16 16:16 | PC.NURSE ---
Pharmacy notified of a new order for Midodrine, still awaiting for the med. Provider notified.
[2024-02-16] MEDS: Midodrine HCl 5 MG TABLET PO (16:32)
[2024-02-16 17:30] VITALS: BP 95/59; PULSE 73; RESP 18
--- NOTE | 2024-02-16 17:54 | PC.NURSE ---
Pt isolative to his room, comes out for meals only. Poor appetite, has bites of food at meal time and drinks mostly Ensure. Alert, oriented x3. Reports anxiety and depression. Denies SI,HI,AVH. Denies pain. New orders for orthostatic BP and Midodrine. Darryl denies dizziness. No SOB or respiratory distress noted. BP 95/59, P 73 one hr after Midodrine administration. Will continue to monitor.
[2024-02-16 20:00] VITALS: BP 93/61; PULSE 87; RESP 16; TEMP 37; O2SAT 96
[2024-02-16] MEDS: Mirtazapine 7.5 MG TABLET PO (20:57)
[2024-02-16] MEDS: risperiDONE 2 MG TABLET PO (20:57)
[2024-02-16] MEDS: Sennosides 8.6 MG TABLET PO (20:57)
[2024-02-17] MEDS: Midodrine HCl 10 MG TABLET PO ×3 (06:38→18:19)
[2024-02-17 07:00] VITALS: BMI 17.1
[2024-02-17 07:55] VITALS: BP 97/56; PULSE 84; RESP 18; TEMP 36.8; O2SAT 96
[2024-02-17] MEDS: Famotidine 20 MG TABLET PO (08:28)
[2024-02-17] MEDS: Memantine HCl 5 MG TABLET PO ×2 (08:28→20:41)
[2024-02-17] MEDS: modafiniL 100 MG TABLET PO (08:28)
[2024-02-17] MEDS: Vortioxetine Hydrobromide 5 MG TABLET PO (08:29)
--- NOTE | 2024-02-17 11:41 | P.PNPSI_ITS ---
Subjective Subjective Date of Service: 02/17/24 Reason For Visit: Schizoaffective disorder, unspecified type Subjective Notes: Section 7 and Section 8 Interim History: The nursing staff reported no changes in his mental status, he denies suicidal or homicidal ideation denies hallucinations. He slept 8 hours. On interview the patient denies new symptoms no changes in mental status. Mental Status Exam Mental Status Exam Patient Appearance: Unkempt Patient Orientation: Person and Situation Level of Consciousness: Awake Patient Behavior: Guarded and Passive Mood Description: Withdrawn Affect Description: Constricted Patient Cognition Impaired: Yes Ability to Follow Directions: Good Speech Pattern: Clear Hallucinations: None Delusions: Ideas of Reference Thought Process: Distracted and Slowed Thinking Thought Content: positive for [place] and positive for Poverty of Content Judgement: Poor Diagnostics Vital Signs (24Hr): Vital Signs - 24 hr 02/16/24 14:45 02/16/24 17:30 02/16/24 20:00 Temperature 98.6 F Pulse Rate 75 73 87 Respiratory Rate 18 16 Blood Pressure 84/53 L 95/59 L 93/61 Pulse Oximetry 96 Oxygen Delivery Method Room Air 02/17/24 07:55 Temperature 98.3 F Pulse Rate 84 Respiratory Rate 18 Blood Pressure 97/56 L Pulse Oximetry 96 Oxygen Delivery Method Room Air BMI result Body Mass Index 17.2 Labs 02/11/24 10:12 01/18/24 08:02 Imaging Radiology Impressions: ITS Impressions Chest X-Ray 11/14/23 15:16 IMPRESSION: No evidence of acute disease. No pulmonary mass, pneumonia or pleural effusion. Chest CT 12/21/23 14:32 IMPRESSION: 1. No focal infiltrate is seen. 2. A 4 mm noncalcified subpleural nodule is seen within the posterior segment of the right upper lobe. According to the UPDATED 2017 Fleischner Society recommendations, the advised follow-up imaging for solid nodules < 6 mm is: LOW RISK PATIENT: No routine follow-up. HIGH RISK PATIENT: Optional CT at 12 months. 3. There is no thoracic lymphadenopathy or pleural effusion. 4. There is a marked kyphoscoliosis. No acute or aggressive osseous lesion is seen. 5. There is mild cholelithiasis. Fleischner guidelines were followed. KUB X-Ray 01/17/24 10:57 IMPRESSION: Multiple prominent, distended air-filled loops of small and large bowel. [id number] amount of stool in the colon. Correlation with clinical exam recommended to determine further management including possible additional imaging with CT scan of the abdomen and pelvis if abdominal pathology is suspected. This study was presented today January 19, 2024 for interpretation. Stat results provided at this time as requested by referring provider. Medications Medications Current Medications Famotidine (Famotidine 20 Mg Tablet) 20 mg PO DAILY [facility] Last Admin: 02/17/24 08:28 Dose: 20 mg Loperamide HCl (Loperamide Hcl 2 Mg Capsule) 2 mg PO Q4H PRN PRN Reason: loose stools Last Admin: 01/13/24 15:22 Dose: 2 mg Magnesium Hydroxide (Milk Of Magnesia 30 Ml Oral.Susp) 30 ml PO BID PRN PRN Reason: Constipation Last Admin: 02/11/24 11:39 Dose: 30 ml Memantine (Memantine Hcl 5 Mg Tablet) 5 mg PO BID [facility] Last Admin: 02/17/24 08:28 Dose: 5 mg Midodrine (Midodrine Hcl 10 Mg Tablet) 10 mg PO TID@0600,1200,1800 [facility] Last Admin: 02/17/24 06:38 Dose: 10 mg Mirtazapine (Mirtazapine 7.5 Mg Tablet) 7.5 mg PO BEDTIME [facility] Last Admin: 02/16/24 20:57 Dose: 7.5 mg Modafinil (Modafinil 100 Mg Tablet) 100 mg PO DAILY [facility] Last Admin: 02/17/24 08:28 Dose: 100 mg Polyethylene Glycol (Polyethylene Glycol 3350 17 Gm Powd.Pack) 17 gm PO DAILY [facility] Last Admin: 02/17/24 08:42 Dose: Not Given Risperidone (Risperidone 2 Mg Tablet) 2 mg PO BEDTIME [facility] Last Admin: 02/16/24 20:57 Dose: 2 mg Senna (Sennosides 8.6 Mg Tablet) 8.6 mg PO BEDTIME [facility] Last Admin: 02/16/24 20:57 Dose: 8.6 mg Vortioxetine (Vortioxetine Hydrobromide 5 Mg Tablet) 5 mg PO DAILY [facility] Last Admin: 02/17/24 08:29 Dose: 5 mg Allergies Allergies Allergy/AdvReac Type Severity Reaction Status Date / Time omeprazole Allergy Unknown Verified 10/30/23 00:09 Assessment & Plan Assessment & Plan (1) Schizophrenia: Status: Acute Code(s): F20.9 - Schizophrenia, unspecified (2) Failure to thrive in adult: Status: Acute Code(s): R62.7 - Adult failure to thrive Plan The patient is a 63-year-old male with a past history of schizophrenia who had been in and out of several facilities in the last year with severe hypoactive behavior, catatonic like symptoms and chronic noncompliance who needed to go for Section 7 and 8 for ECT. Even though that he had been treated with antipsychotics he remains still internally preoccupied. Plan 01/22/2024: No changes to current plan. Will add MiraLax 01/22: no changes 01/23 continue tx 01/24 continue tx. 01/25 continue tx 01/27 continue tx. 01/28: Continue current regimen and plans 01/29: Continue current regimen and plans. 01/30 continue tx. awaiting guardianship. 01/31 continue tx. 02/01 continue tx. 02/02 continue tx. 02/03 continue tx. 02/06 continue tx. 02/08: stable presentation. continue current mgmt. 02/09: no change 02/10: no change 02/11 continue same treatment 02/12 continue same treatment 02/13 continue tx. 02/14 continue tx. 02/15 continue tx 02/16 continue same treatment Reason for continued inpatient stay Substantial Risk for: inability to function, rapid decompensation and med/psych decompensation Time Spent With Patient Time: Total time managing care of this patient today __20__ minutes.
[2024-02-17 18:05] VITALS: BP 88/59; PULSE 83; RESP 18
[2024-02-17 20:00] VITALS: BP 93/53; PULSE 72; RESP 16; TEMP 36.9; O2SAT 94
[2024-02-17] MEDS: Mirtazapine 7.5 MG TABLET PO (20:41)
[2024-02-17] MEDS: risperiDONE 2 MG TABLET PO (20:41)
[2024-02-17] MEDS: Sennosides 8.6 MG TABLET PO (20:41)
[2024-02-18 08:00] VITALS: BP 92/57; PULSE 74; RESP 17; O2SAT 95
[2024-02-18] MEDS: Famotidine 20 MG TABLET PO (08:29)
[2024-02-18] MEDS: polyethylene glycoL 3350 17 GM POWD.PACK PO (08:29)
[2024-02-18] MEDS: modafiniL 100 MG TABLET PO (08:29)
[2024-02-18] MEDS: Vortioxetine Hydrobromide 5 MG TABLET PO (08:29)
[2024-02-18] MEDS: Memantine HCl 5 MG TABLET PO ×2 (08:29→20:19)
--- NOTE | 2024-02-18 08:38 | HO.PSYCHPN ---
Subjective Subjective Date of Service: 02/18/24 Reason For Visit: Schizoaffective disorder, unspecified type Subjective Notes: Section 8 Interim History: Pt slept all night. He continues to present as visible for meals, going to some groups, mostly just siting there but no participation. No SI/HI. Review of Systems Review of Systems Constipation improving Yes all other systems are reviewed and are negative and Unobtainable due to mental status Mental Status Exam Mental Status Exam Patient Appearance: Unkempt Patient Orientation: Person and Situation Level of Consciousness: Awake Patient Behavior: Guarded and Passive Mood Description: Withdrawn Affect Description: Constricted Patient Cognition Impaired: Yes Ability to Follow Directions: Good Speech Pattern: Clear Diagnostics Vital Signs (24Hr): Vital Signs - 24 hr 02/17/24 18:05 02/17/24 20:00 Temperature 98.4 F Pulse Rate 83 72 Respiratory Rate 18 16 Blood Pressure 88/59 L 93/53 L Pulse Oximetry 94 Oxygen Delivery Method Room Air BMI result Body Mass Index 17.1 Labs 02/11/24 10:12 01/18/24 08:02 Imaging Radiology Impressions: ITS Impressions Chest X-Ray 11/14/23 15:16 IMPRESSION: No evidence of acute disease. No pulmonary mass, pneumonia or pleural effusion. Chest CT 12/21/23 14:32 IMPRESSION: 1. No focal infiltrate is seen. 2. A 4 mm noncalcified subpleural nodule is seen within the posterior segment of the right upper lobe. According to the UPDATED 2017 Fleischner Society recommendations, the advised follow-up imaging for solid nodules < 6 mm is: LOW RISK PATIENT: No routine follow-up. HIGH RISK PATIENT: Optional CT at 12 months. 3. There is no thoracic lymphadenopathy or pleural effusion. 4. There is a marked kyphoscoliosis. No acute or aggressive osseous lesion is seen. 5. There is mild cholelithiasis. Fleischner guidelines were followed. KUB X-Ray 01/17/24 10:57 IMPRESSION: Multiple prominent, distended air-filled loops of small and large bowel. [id number] amount of stool in the colon. Correlation with clinical exam recommended to determine further management including possible additional imaging with CT scan of the abdomen and pelvis if abdominal pathology is suspected. This study was presented today January 19, 2024 for interpretation. Stat results provided at this time as requested by referring provider. Medications Medications Current Medications Famotidine (Famotidine 20 Mg Tablet) 20 mg PO DAILY [facility] Last Admin: 02/18/24 08:29 Dose: 20 mg Loperamide HCl (Loperamide Hcl 2 Mg Capsule) 2 mg PO Q4H PRN PRN Reason: loose stools Last Admin: 01/13/24 15:22 Dose: 2 mg Magnesium Hydroxide (Milk Of Magnesia 30 Ml Oral.Susp) 30 ml PO BID PRN PRN Reason: Constipation Last Admin: 02/11/24 11:39 Dose: 30 ml Memantine (Memantine Hcl 5 Mg Tablet) 5 mg PO BID [facility] Last Admin: 02/18/24 08:29 Dose: 5 mg Midodrine (Midodrine Hcl 10 Mg Tablet) 10 mg PO TID@0600,1200,1800 [facility] Last Admin: 02/18/24 06:59 Dose: Not Given Mirtazapine (Mirtazapine 7.5 Mg Tablet) 7.5 mg PO BEDTIME [facility] Last Admin: 02/17/24 20:41 Dose: 7.5 mg Modafinil (Modafinil 100 Mg Tablet) 100 mg PO DAILY [facility] Last Admin: 02/18/24 08:29 Dose: 100 mg Polyethylene Glycol (Polyethylene Glycol 3350 17 Gm Powd.Pack) 17 gm PO DAILY [facility] Last Admin: 02/18/24 08:29 Dose: 17 gm Risperidone (Risperidone 2 Mg Tablet) 2 mg PO BEDTIME [facility] Last Admin: 02/17/24 20:41 Dose: 2 mg Senna (Sennosides 8.6 Mg Tablet) 8.6 mg PO BEDTIME [facility] Last Admin: 02/17/24 20:41 Dose: 8.6 mg Vortioxetine (Vortioxetine Hydrobromide 5 Mg Tablet) 5 mg PO DAILY [facility] Last Admin: 02/18/24 08:29 Dose: 5 mg Allergies Allergies Allergy/AdvReac Type Severity Reaction Status Date / Time omeprazole Allergy Unknown Verified 10/30/23 00:09 Assessment & Plan Assessment & Plan (1) Schizophrenia: Status: Acute Code(s): F20.9 - Schizophrenia, unspecified (2) Failure to thrive in adult: Status: Acute Code(s): R62.7 - Adult failure to thrive Plan The patient is a 63-year-old male with a past history of schizophrenia who had been in and out of several facilities in the last year with severe hypoactive behavior, catatonic like symptoms and chronic noncompliance who needed to go for Section 7 and 8 for ECT. Even though that he had been treated with antipsychotics he remains still internally preoccupied. Plan 01/22/2024: No changes to current plan. Will add MiraLax 01/22: no changes 01/23 continue tx 01/24 continue tx. 01/25 continue tx 01/27 continue tx. 01/28: Continue current regimen and plans 01/29: Continue current regimen and plans. 01/30 continue tx. awaiting guardianship. 01/31 continue tx. 02/01 continue tx. 02/02 continue tx. 02/03 continue tx. 02/06 continue tx. 02/08: stable presentation. continue current mgmt. 02/09: no change 02/10: no change 02/11 continue same treatment 02/12 continue same treatment 02/13 continue tx. 02/14 continue tx. 02/15 continue tx 02/17 continue same treatment Reason for continued inpatient stay Substantial Risk for: inability to function Time Spent With Patient Time: Total time managing care of this patient today ____ minutes.
[2024-02-18 18:28] VITALS: BP 101/69
[2024-02-18] MEDS: Midodrine HCl 10 MG TABLET PO (18:31)
[2024-02-18 20:00] VITALS: BP 84/52; PULSE 68; RESP 16; TEMP 36.9; O2SAT 96
[2024-02-18] MEDS: risperiDONE 2 MG TABLET PO (20:19)
[2024-02-18] MEDS: Sennosides 8.6 MG TABLET PO (20:19)
[2024-02-18] MEDS: Mirtazapine 7.5 MG TABLET PO (20:19)
[2024-02-19] MEDS: Midodrine HCl 10 MG TABLET PO ×3 (06:49→18:11)
[2024-02-19 08:00] VITALS: BP 95/51; PULSE 63; RESP 17; TEMP 36.3; O2SAT 95
[2024-02-19] MEDS: modafiniL 100 MG TABLET PO (10:03)
[2024-02-19] MEDS: Famotidine 20 MG TABLET PO (10:03)
[2024-02-19] MEDS: Vortioxetine Hydrobromide 5 MG TABLET PO (10:03)
[2024-02-19] MEDS: polyethylene glycoL 3350 17 GM POWD.PACK PO (10:03)
[2024-02-19] MEDS: Memantine HCl 5 MG TABLET PO ×2 (10:03→21:09)
[2024-02-19 12:52] VITALS: BP 84/58; PULSE 68; RESP 17
--- NOTE | 2024-02-19 15:20 | P.PNPSI_ITS ---
Subjective Subjective Date of Service: 02/19/24 Reason For Visit: Schizoaffective disorder, unspecified type Interim History: no issues. appears having more energy and wakefulness than prior. per staff, slept 3-4 hours overnight so sleeping much this morning. poor PO intake. no change otherwise. Mental Status Exam Mental Status Exam Patient Appearance: Unkempt Patient Orientation: Person and Situation Level of Consciousness: Awake Patient Behavior: Guarded and Passive Mood Description: Withdrawn Affect Description: Constricted Patient Cognition Impaired: Yes Ability to Follow Directions: Good Speech Pattern: Clear Diagnostics Vital Signs (24Hr): Vital Signs - 24 hr 02/18/24 18:28 02/18/24 20:00 02/19/24 08:00 Temperature 98.4 F 97.4 F Pulse Rate 68 63 Respiratory Rate 16 17 Blood Pressure 101/69 84/52 L 95/51 L Pulse Oximetry 96 95 Oxygen Delivery Method Room Air Room Air 02/19/24 12:52 Temperature Pulse Rate 68 Respiratory Rate 17 Blood Pressure 84/58 L Pulse Oximetry Oxygen Delivery Method BMI result Body Mass Index 17.1 Labs 02/11/24 10:12 01/18/24 08:02 Imaging Radiology Impressions: ITS Impressions Chest X-Ray 11/14/23 15:16 IMPRESSION: No evidence of acute disease. No pulmonary mass, pneumonia or pleural effusion. Chest CT 12/21/23 14:32 IMPRESSION: 1. No focal infiltrate is seen. 2. A 4 mm noncalcified subpleural nodule is seen within the posterior segment of the right upper lobe. According to the UPDATED 2017 Fleischner Society recommendations, the advised follow-up imaging for solid nodules < 6 mm is: LOW RISK PATIENT: No routine follow-up. HIGH RISK PATIENT: Optional CT at 12 months. 3. There is no thoracic lymphadenopathy or pleural effusion. 4. There is a marked kyphoscoliosis. No acute or aggressive osseous lesion is seen. 5. There is mild cholelithiasis. Fleischner guidelines were followed. KUB X-Ray 01/17/24 10:57 IMPRESSION: Multiple prominent, distended air-filled loops of small and large bowel. [id number] amount of stool in the colon. Correlation with clinical exam recommended to determine further management including possible additional imaging with CT scan of the abdomen and pelvis if abdominal pathology is suspected. This study was presented today January 19, 2024 for interpretation. Stat results provided at this time as requested by referring provider. Medications Medications Current Medications Famotidine (Famotidine 20 Mg Tablet) 20 mg PO DAILY [facility] Last Admin: 02/19/24 10:03 Dose: 20 mg Loperamide HCl (Loperamide Hcl 2 Mg Capsule) 2 mg PO Q4H PRN PRN Reason: loose stools Last Admin: 01/13/24 15:22 Dose: 2 mg Magnesium Hydroxide (Milk Of Magnesia 30 Ml Oral.Susp) 30 ml PO BID PRN PRN Reason: Constipation Last Admin: 02/11/24 11:39 Dose: 30 ml Memantine (Memantine Hcl 5 Mg Tablet) 5 mg PO BID [facility] Last Admin: 02/19/24 10:03 Dose: 5 mg Midodrine (Midodrine Hcl 10 Mg Tablet) 10 mg PO TID@0600,1200,1800 [facility] Last Admin: 02/19/24 12:52 Dose: 10 mg Mirtazapine (Mirtazapine 7.5 Mg Tablet) 7.5 mg PO BEDTIME [facility] Last Admin: 02/18/24 20:19 Dose: 7.5 mg Modafinil (Modafinil 100 Mg Tablet) 100 mg PO DAILY [facility] Last Admin: 02/19/24 10:03 Dose: 100 mg Polyethylene Glycol (Polyethylene Glycol 3350 17 Gm Powd.Pack) 17 gm PO DAILY [facility] Last Admin: 02/19/24 10:03 Dose: 17 gm Risperidone (Risperidone 2 Mg Tablet) 2 mg PO BEDTIME [facility] Last Admin: 02/18/24 20:19 Dose: 2 mg Senna (Sennosides 8.6 Mg Tablet) 8.6 mg PO BEDTIME [facility] Last Admin: 02/18/24 20:19 Dose: 8.6 mg Vortioxetine (Vortioxetine Hydrobromide 5 Mg Tablet) 5 mg PO DAILY [facility] Last Admin: 02/19/24 10:03 Dose: 5 mg Allergies Allergies Allergy/AdvReac Type Severity Reaction Status Date / Time omeprazole Allergy Unknown Verified 10/30/23 00:09 Assessment & Plan Assessment & Plan (1) Schizophrenia: Status: Acute Code(s): F20.9 - Schizophrenia, unspecified (2) Failure to thrive in adult: Status: Acute Code(s): R62.7 - Adult failure to thrive Plan The patient is a 63-year-old male with a past history of schizophrenia who had been in and out of several facilities in the last year with severe hypoactive behavior, catatonic like symptoms and chronic noncompliance who needed to go for Section 7 and 8 for ECT. Even though that he had been treated with antipsychotics he remains still internally preoccupied. Plan 01/22/2024: No changes to current plan. Will add MiraLax 01/22: no changes 01/23 continue tx 01/24 continue tx. 01/25 continue tx 01/27 continue tx. 01/28: Continue current regimen and plans 01/29: Continue current regimen and plans. 01/30 continue tx. awaiting guardianship. 01/31 continue tx. 02/01 continue tx. 02/02 continue tx. 02/03 continue tx. 02/06 continue tx. 02/08: stable presentation. continue current mgmt. 02/09: no change 02/10: no change 02/11 continue same treatment 02/12 continue same treatment 02/13 continue tx. 02/14 continue tx. 02/15 continue tx 02/17 continue same treatment 02/18: appears slightly more wakeful and energetic than last time this continuity writer met with pt. continue current mgmt. Reason for continued inpatient stay Substantial Risk for: inability to function and rapid decompensation Time Spent With Patient Time: Total time managing care of this patient today ____ minutes.
[2024-02-19 18:10] VITALS: BP 85/60; PULSE 75
[2024-02-19 20:00] VITALS: BP 94/66; PULSE 86; RESP 16; TEMP 36.4; O2SAT 95
[2024-02-19] MEDS: risperiDONE 2 MG TABLET PO (21:08)
[2024-02-19] MEDS: Mirtazapine 7.5 MG TABLET PO (21:08)
[2024-02-20 08:00] VITALS: BP 123/57; PULSE 65; RESP 16; TEMP 36.1; O2SAT 97
[2024-02-20] MEDS: Famotidine 20 MG TABLET PO (08:23)
[2024-02-20] MEDS: polyethylene glycoL 3350 17 GM POWD.PACK PO (08:23)
[2024-02-20] MEDS: Vortioxetine Hydrobromide 5 MG TABLET PO (08:23)
[2024-02-20] MEDS: Memantine HCl 5 MG TABLET PO ×2 (08:23→20:34)
[2024-02-20] MEDS: modafiniL 100 MG TABLET PO (08:23)
[2024-02-20 12:40] VITALS: BP 100/65; PULSE 95
[2024-02-20] MEDS: Midodrine HCl 10 MG TABLET PO ×2 (12:48→17:51)
--- NOTE | 2024-02-20 15:12 | HO.PSYCHPN ---
Subjective Subjective Date of Service: 02/20/24 Reason For Visit: Schizoaffective disorder, unspecified type Interim History: no change in presentation from yesterday. no complaints or requests. per staff, up a bit more than prior. had dinner. taking meds. Mental Status Exam Mental Status Exam Patient Appearance: Unkempt Patient Orientation: Person and Situation Level of Consciousness: Awake Patient Behavior: Guarded and Passive Mood Description: Withdrawn Affect Description: Constricted Patient Cognition Impaired: Yes Ability to Follow Directions: Good Speech Pattern: Clear Diagnostics Vital Signs (24Hr): Vital Signs - 24 hr 02/19/24 18:10 02/19/24 20:00 02/20/24 08:00 Temperature 97.6 F 96.9 F Pulse Rate 75 86 65 Respiratory Rate 16 16 Blood Pressure 85/60 L 94/66 123/57 L Pulse Oximetry 95 97 Oxygen Delivery Method Room Air Room Air 02/20/24 12:40 Temperature Pulse Rate 95 Respiratory Rate Blood Pressure 100/65 Pulse Oximetry Oxygen Delivery Method BMI result Body Mass Index 17.1 Labs 02/11/24 10:12 01/18/24 08:02 Imaging Radiology Impressions: ITS Impressions Chest X-Ray 11/14/23 15:16 IMPRESSION: No evidence of acute disease. No pulmonary mass, pneumonia or pleural effusion. Chest CT 12/21/23 14:32 IMPRESSION: 1. No focal infiltrate is seen. 2. A 4 mm noncalcified subpleural nodule is seen within the posterior segment of the right upper lobe. According to the UPDATED 2017 Fleischner Society recommendations, the advised follow-up imaging for solid nodules < 6 mm is: LOW RISK PATIENT: No routine follow-up. HIGH RISK PATIENT: Optional CT at 12 months. 3. There is no thoracic lymphadenopathy or pleural effusion. 4. There is a marked kyphoscoliosis. No acute or aggressive osseous lesion is seen. 5. There is mild cholelithiasis. Fleischner guidelines were followed. KUB X-Ray 01/17/24 10:57 IMPRESSION: Multiple prominent, distended air-filled loops of small and large bowel. [id number] amount of stool in the colon. Correlation with clinical exam recommended to determine further management including possible additional imaging with CT scan of the abdomen and pelvis if abdominal pathology is suspected. This study was presented today January 19, 2024 for interpretation. Stat results provided at this time as requested by referring provider. Medications Medications Current Medications Famotidine (Famotidine 20 Mg Tablet) 20 mg PO DAILY [facility] Last Admin: 02/20/24 08:23 Dose: 20 mg Loperamide HCl (Loperamide Hcl 2 Mg Capsule) 2 mg PO Q4H PRN PRN Reason: loose stools Last Admin: 01/13/24 15:22 Dose: 2 mg Magnesium Hydroxide (Milk Of Magnesia 30 Ml Oral.Susp) 30 ml PO BID PRN PRN Reason: Constipation Last Admin: 02/11/24 11:39 Dose: 30 ml Memantine (Memantine Hcl 5 Mg Tablet) 5 mg PO BID [facility] Last Admin: 02/20/24 08:23 Dose: 5 mg Midodrine (Midodrine Hcl 10 Mg Tablet) 10 mg PO TID@0600,1200,1800 [facility] Last Admin: 02/20/24 12:48 Dose: 10 mg Mirtazapine (Mirtazapine 7.5 Mg Tablet) 7.5 mg PO BEDTIME [facility] Last Admin: 02/19/24 21:08 Dose: 7.5 mg Modafinil (Modafinil 100 Mg Tablet) 100 mg PO DAILY [facility] Last Admin: 02/20/24 08:23 Dose: 100 mg Polyethylene Glycol (Polyethylene Glycol 3350 17 Gm Powd.Pack) 17 gm PO DAILY [facility] Last Admin: 02/20/24 08:23 Dose: 17 gm Risperidone (Risperidone 2 Mg Tablet) 2 mg PO BEDTIME [facility] Last Admin: 02/19/24 21:08 Dose: 2 mg Senna (Sennosides 8.6 Mg Tablet) 8.6 mg PO BEDTIME [facility] Last Admin: 02/19/24 22:14 Dose: Not Given Vortioxetine (Vortioxetine Hydrobromide 5 Mg Tablet) 5 mg PO DAILY [facility] Last Admin: 02/20/24 08:23 Dose: 5 mg Allergies Allergies Allergy/AdvReac Type Severity Reaction Status Date / Time omeprazole Allergy Unknown Verified 10/30/23 00:09 Assessment & Plan Assessment & Plan (1) Schizophrenia: Status: Acute Code(s): F20.9 - Schizophrenia, unspecified (2) Failure to thrive in adult: Status: Acute Code(s): R62.7 - Adult failure to thrive Plan The patient is a 63-year-old male with a past history of schizophrenia who had been in and out of several facilities in the last year with severe hypoactive behavior, catatonic like symptoms and chronic noncompliance who needed to go for [facility] 7 and 8 for ECT. Even though that he had been treated with antipsychotics he remains still internally preoccupied. Plan 01/22/2024: No changes to current plan. Will add MiraLax 01/22: no changes 01/23 continue tx 01/24 continue tx. 01/25 continue tx 01/27 continue tx. 01/28: Continue current regimen and plans 01/29: Continue current regimen and plans. 01/30 continue tx. awaiting guardianship. 01/31 continue tx. 02/01 continue tx. 02/02 continue tx. 02/03 continue tx. 02/06 continue tx. 02/08: stable presentation. continue current mgmt. 02/09: no change 02/10: no change 02/11 continue same treatment 02/12 continue same treatment 02/13 continue tx. 02/14 continue tx. 02/15 continue tx 02/17 continue same treatment 02/18: appears slightly more wakeful and energetic than last time this medical writer met with pt. continue current mgmt. 02/19: as per yesterday. Reason for continued inpatient stay Substantial Risk for: inability to function Time Spent With Patient Time: Total time managing care of this patient today ____ minutes.
[2024-02-20 17:45] VITALS: BP 87/50; PULSE 69
[2024-02-20 20:00] VITALS: BP 98/71; PULSE 85; RESP 16; TEMP 37; O2SAT 95
[2024-02-20] MEDS: Sennosides 8.6 MG TABLET PO (20:34)
[2024-02-20] MEDS: risperiDONE 2 MG TABLET PO (20:34)
[2024-02-20] MEDS: Mirtazapine 7.5 MG TABLET PO (20:34)
[2024-02-21] MEDS: Vortioxetine Hydrobromide 5 MG TABLET PO (09:15)
[2024-02-21] MEDS: Midodrine HCl 10 MG TABLET PO ×3 (09:15→17:52)
[2024-02-21] MEDS: Famotidine 20 MG TABLET PO (09:15)
[2024-02-21] MEDS: Memantine HCl 5 MG TABLET PO ×2 (09:15→20:54)
[2024-02-21] MEDS: modafiniL 100 MG TABLET PO (09:15)
--- NOTE | 2024-02-21 09:50 | P.PNPSI_ITS ---
Subjective Subjective Date of Service: 02/21/24 Reason For Visit: Schizoaffective disorder, unspecified type Subjective Notes: Conditional Voluntary Interim History: Pt slept 6hrs. Pt visible in the morning, ambulating asking for food. He denies any physical concerns. He is not very talkative other than reporting he wants to go home. GUarded, taking medications as prescribed at least for past day. No behavioral concerns. Review of Systems Review of Systems Constipation improving Yes all other systems are reviewed and are negative and Unobtainable due to mental status Mental Status Exam Mental Status Exam Patient Appearance: Unkempt Patient Orientation: Person and Situation Level of Consciousness: Awake Patient Behavior: Guarded and Passive Mood Description: Withdrawn Affect Description: Constricted Patient Cognition Impaired: Yes Ability to Follow Directions: Good Speech Pattern: Clear Diagnostics Vital Signs (24Hr): Vital Signs - 24 hr 02/20/24 12:40 02/20/24 17:45 02/20/24 20:00 Temperature 98.6 F Pulse Rate 95 69 85 Respiratory Rate 16 Blood Pressure 100/65 87/50 L 98/71 Pulse Oximetry 95 Oxygen Delivery Method Room Air BMI result Body Mass Index 17.1 Labs 02/11/24 10:12 01/18/24 08:02 Imaging Radiology Impressions: ITS Impressions Chest X-Ray 11/14/23 15:16 IMPRESSION: No evidence of acute disease. No pulmonary mass, pneumonia or pleural effusion. Chest CT 12/21/23 14:32 IMPRESSION: 1. No focal infiltrate is seen. 2. A 4 mm noncalcified subpleural nodule is seen within the posterior segment of the right upper lobe. According to the UPDATED 2017 Fleischner Society recommendations, the advised follow-up imaging for solid nodules < 6 mm is: LOW RISK PATIENT: No routine follow-up. HIGH RISK PATIENT: Optional CT at 12 months. 3. There is no thoracic lymphadenopathy or pleural effusion. 4. There is a marked kyphoscoliosis. No acute or aggressive osseous lesion is seen. 5. There is mild cholelithiasis. Fleischner guidelines were followed. KUB X-Ray 01/17/24 10:57 IMPRESSION: Multiple prominent, distended air-filled loops of small and large bowel. [id number] amount of stool in the colon. Correlation with clinical exam recommended to determine further management including possible additional imaging with CT scan of the abdomen and pelvis if abdominal pathology is suspected. This study was presented today January 19, 2024 for interpretation. Stat results provided at this time as requested by referring provider. Medications Medications Current Medications Famotidine (Famotidine 20 Mg Tablet) 20 mg PO DAILY [facility] Last Admin: 02/21/24 09:15 Dose: 20 mg Loperamide HCl (Loperamide Hcl 2 Mg Capsule) 2 mg PO Q4H PRN PRN Reason: loose stools Last Admin: 01/13/24 15:22 Dose: 2 mg Magnesium Hydroxide (Milk Of Magnesia 30 Ml Oral.Susp) 30 ml PO BID PRN PRN Reason: Constipation Last Admin: 02/11/24 11:39 Dose: 30 ml Memantine (Memantine Hcl 5 Mg Tablet) 5 mg PO BID [facility] Last Admin: 02/21/24 09:15 Dose: 5 mg Midodrine (Midodrine Hcl 10 Mg Tablet) 10 mg PO TID@0600,1200,1800 [facility] Last Admin: 02/21/24 09:15 Dose: 10 mg Mirtazapine (Mirtazapine 7.5 Mg Tablet) 7.5 mg PO BEDTIME [facility] Last Admin: 02/20/24 20:34 Dose: 7.5 mg Modafinil (Modafinil 100 Mg Tablet) 100 mg PO DAILY [facility] Last Admin: 02/21/24 09:15 Dose: 100 mg Polyethylene Glycol (Polyethylene Glycol 3350 17 Gm Powd.Pack) 17 gm PO DAILY [facility] Last Admin: 02/21/24 09:16 Dose: Not Given Risperidone (Risperidone 2 Mg Tablet) 2 mg PO BEDTIME [facility] Last Admin: 02/20/24 20:34 Dose: 2 mg Senna (Sennosides 8.6 Mg Tablet) 8.6 mg PO BEDTIME [facility] Last Admin: 02/20/24 20:34 Dose: 8.6 mg Vortioxetine (Vortioxetine Hydrobromide 5 Mg Tablet) 5 mg PO DAILY [facility] Last Admin: 02/21/24 09:15 Dose: 5 mg Allergies Allergies Allergy/AdvReac Type Severity Reaction Status Date / Time omeprazole Allergy Unknown Verified 10/30/23 00:09 Assessment & Plan Assessment & Plan (1) Schizophrenia: Status: Acute Code(s): F20.9 - Schizophrenia, unspecified (2) Failure to thrive in adult: Status: Acute Code(s): R62.7 - Adult failure to thrive Plan The patient is a 63-year-old male with a past history of schizophrenia who had been in and out of several facilities in the last year with severe hypoactive behavior, catatonic like symptoms and chronic noncompliance who needed to go for [facility] 7 and 8 for ECT. Even though that he had been treated with antipsychotics he remains still internally preoccupied. Plan 01/22/2024: No changes to current plan. Will add MiraLax 01/22: no changes 01/23 continue tx 01/24 continue tx. 01/25 continue tx 01/27 continue tx. 01/28: Continue current regimen and plans 01/29: Continue current regimen and plans. 01/30 continue tx. awaiting guardianship. 01/31 continue tx. 02/01 continue tx. 02/02 continue tx. 02/03 continue tx. 02/06 continue tx. 02/08: stable presentation. continue current mgmt. 02/09: no change 02/10: no change 02/11 continue same treatment 02/12 continue same treatment 02/13 continue tx. 02/14 continue tx. 02/15 continue tx 02/17 continue same treatment 02/18: appears slightly more wakeful and energetic than last time this filing writer met with pt. continue current mgmt. 02/19: as per yesterday. 02/20 continue tx. Reason for continued inpatient stay Substantial Risk for: inability to function Time Spent With Patient Time: Total time managing care of this patient today ____ minutes.
[2024-02-21 12:50] VITALS: BP 83/52
[2024-02-21 17:52] VITALS: BP 108/65
[2024-02-21 20:00] VITALS: BP 97/63; PULSE 62; RESP 16; TEMP 36.3; O2SAT 95
[2024-02-21] MEDS: Mirtazapine 7.5 MG TABLET PO (20:54)
[2024-02-21] MEDS: risperiDONE 2 MG TABLET PO (20:54)
[2024-02-21] MEDS: Sennosides 8.6 MG TABLET PO (20:54)
[2024-02-22] MEDS: Midodrine HCl 10 MG TABLET PO ×3 (05:12→20:15)
[2024-02-22 08:00] VITALS: BP 98/60; O2SAT 95
[2024-02-22] MEDS: modafiniL 100 MG TABLET PO (08:29)
[2024-02-22] MEDS: Memantine HCl 5 MG TABLET PO ×2 (08:29→20:16)
[2024-02-22] MEDS: Famotidine 20 MG TABLET PO (08:29)
[2024-02-22] MEDS: Vortioxetine Hydrobromide 5 MG TABLET PO (08:29)
--- NOTE | 2024-02-22 09:53 | P.PNPSI_ITS ---
Subjective Subjective Date of Service: 02/22/24 Reason For Visit: Schizoaffective disorder, unspecified type Subjective Notes: Section 8 Interim History: Pt slept 6 hrs. Pt visible at times for meals. Not interacting with peers or staff much. He at times declines medications, stating that they don't work. He has poverty of speech. He does state he wants to go to his own place. No aggression towards self or others. Review of Systems Review of Systems Constipation improving Yes all other systems are reviewed and are negative and Unobtainable due to mental status Mental Status Exam Mental Status Exam Patient Appearance: Unkempt Patient Orientation: Person and Situation Level of Consciousness: Awake Patient Behavior: Guarded and Passive Mood Description: Withdrawn Affect Description: Constricted Patient Cognition Impaired: Yes Ability to Follow Directions: Good Speech Pattern: Clear Diagnostics Vital Signs (24Hr): Vital Signs - 24 hr 02/21/24 12:50 02/21/24 17:52 02/21/24 20:00 Temperature 97.4 F Pulse Rate 62 Respiratory Rate 16 Blood Pressure 83/52 L 108/65 97/63 Pulse Oximetry 95 Oxygen Delivery Method Room Air 02/22/24 08:00 Temperature Pulse Rate Respiratory Rate Blood Pressure 98/60 Pulse Oximetry 95 Oxygen Delivery Method Room Air BMI result Body Mass Index 17.1 Labs 02/11/24 10:12 01/18/24 08:02 Imaging Radiology Impressions: ITS Impressions Chest X-Ray 11/14/23 15:16 IMPRESSION: No evidence of acute disease. No pulmonary mass, pneumonia or pleural effusion. Chest CT 12/21/23 14:32 IMPRESSION: 1. No focal infiltrate is seen. 2. A 4 mm noncalcified subpleural nodule is seen within the posterior segment of the right upper lobe. According to the UPDATED 2017 Fleischner Society recommendations, the advised follow-up imaging for solid nodules < 6 mm is: LOW RISK PATIENT: No routine follow-up. HIGH RISK PATIENT: Optional CT at 12 months. 3. There is no thoracic lymphadenopathy or pleural effusion. 4. There is a marked kyphoscoliosis. No acute or aggressive osseous lesion is seen. 5. There is mild cholelithiasis. Fleischner guidelines were followed. KUB X-Ray 01/17/24 10:57 IMPRESSION: Multiple prominent, distended air-filled loops of small and large bowel. [id number] amount of stool in the colon. Correlation with clinical exam recommended to determine further management including possible additional imaging with CT scan of the abdomen and pelvis if abdominal pathology is suspected. This study was presented today January 19, 2024 for interpretation. Stat results provided at this time as requested by referring provider. Medications Medications Current Medications Famotidine (Famotidine 20 Mg Tablet) 20 mg PO DAILY [facility] Last Admin: 02/22/24 08:29 Dose: 20 mg Loperamide HCl (Loperamide Hcl 2 Mg Capsule) 2 mg PO Q4H PRN PRN Reason: loose stools Last Admin: 01/13/24 15:22 Dose: 2 mg Magnesium Hydroxide (Milk Of Magnesia 30 Ml Oral.Susp) 30 ml PO BID PRN PRN Reason: Constipation Last Admin: 02/11/24 11:39 Dose: 30 ml Memantine (Memantine Hcl 5 Mg Tablet) 5 mg PO BID [facility] Last Admin: 02/22/24 08:29 Dose: 5 mg Midodrine (Midodrine Hcl 10 Mg Tablet) 10 mg PO TID@0600,1200,1800 [facility] Last Admin: 02/22/24 05:12 Dose: 10 mg Mirtazapine (Mirtazapine 7.5 Mg Tablet) 7.5 mg PO BEDTIME [facility] Last Admin: 02/21/24 20:54 Dose: 7.5 mg Modafinil (Modafinil 100 Mg Tablet) 100 mg PO DAILY [facility] Last Admin: 02/22/24 08:29 Dose: 100 mg Polyethylene Glycol (Polyethylene Glycol 3350 17 Gm Powd.Pack) 17 gm PO DAILY [facility] Last Admin: 02/22/24 08:31 Dose: Not Given Risperidone (Risperidone 2 Mg Tablet) 2 mg PO BEDTIME [facility] Last Admin: 02/21/24 20:54 Dose: 2 mg Senna (Sennosides 8.6 Mg Tablet) 8.6 mg PO BEDTIME [facility] Last Admin: 02/21/24 20:54 Dose: 8.6 mg Vortioxetine (Vortioxetine Hydrobromide 5 Mg Tablet) 5 mg PO DAILY [facility] Last Admin: 02/22/24 08:29 Dose: 5 mg Allergies Allergies Allergy/AdvReac Type Severity Reaction Status Date / Time omeprazole Allergy Unknown Verified 10/30/23 00:09 Assessment & Plan Assessment & Plan (1) Schizophrenia: Status: Acute Code(s): F20.9 - Schizophrenia, unspecified (2) Failure to thrive in adult: Status: Acute Code(s): R62.7 - Adult failure to thrive Plan The patient is a 63-year-old male with a past history of schizophrenia who had been in and out of several facilities in the last year with severe hypoactive behavior, catatonic like symptoms and chronic noncompliance who needed to go for Section 7 and 8 for ECT. Even though that he had been treated with antipsychotics he remains still internally preoccupied. Plan 01/22/2024: No changes to current plan. Will add MiraLax 01/22: no changes 01/23 continue tx 01/24 continue tx. 01/25 continue tx 01/27 continue tx. 01/28: Continue current regimen and plans 01/29: Continue current regimen and plans. 01/30 continue tx. awaiting guardianship. 01/31 continue tx. 02/01 continue tx. 02/02 continue tx. 02/03 continue tx. 02/06 continue tx. 02/08: stable presentation. continue current mgmt. 02/09: no change 02/10: no change 02/11 continue same treatment 02/12 continue same treatment 02/13 continue tx. 02/14 continue tx. 02/15 continue tx 02/17 continue same treatment 02/18: appears slightly more wakeful and energetic than last time this production underwriter met with pt. continue current mgmt. 02/19: as per yesterday. 02/20 continue tx. 02/21 continue tx. Reason for continued inpatient stay Substantial Risk for: inability to function Time Spent With Patient Time: Total time managing care of this patient today ____ minutes.
[2024-02-22 20:00] VITALS: BP 92/60; PULSE 72; RESP 16; TEMP 35.7; O2SAT 96
[2024-02-22] MEDS: Mirtazapine 7.5 MG TABLET PO (20:15)
[2024-02-22] MEDS: Sennosides 8.6 MG TABLET PO (20:16)
[2024-02-22] MEDS: risperiDONE 2 MG TABLET PO (20:17)
[2024-02-23] MEDS: Midodrine HCl 10 MG TABLET PO ×3 (06:30→17:34)
--- NOTE | 2024-02-23 08:53 | HO.PSYCHPN ---
Subjective Subjective Date of Service: 02/23/24 Reason For Visit: Schizoaffective disorder, unspecified type Interim History: Pt slept 6 hrs. Pt visible at times for meals. Not interacting with peers or staff much. He at times declines medications, stating that they don't work. He has poverty of speech. He does state he wants to go to his own place. No aggression towards self or others. Review of Systems Review of Systems Constipation improving Yes all other systems are reviewed and are negative and Unobtainable due to mental status Mental Status Exam Mental Status Exam Patient Appearance: Unkempt Patient Orientation: Person and Situation Level of Consciousness: Awake Patient Behavior: Guarded and Passive Mood Description: Withdrawn Affect Description: Constricted Patient Cognition Impaired: Yes Ability to Follow Directions: Good Speech Pattern: Clear Diagnostics Vital Signs (24Hr): Vital Signs - 24 hr 02/22/24 20:00 Temperature 96.2 F L Pulse Rate 72 Respiratory Rate 16 Blood Pressure 92/60 Pulse Oximetry 96 Oxygen Delivery Method Room Air BMI result Body Mass Index 17.1 Labs 02/11/24 10:12 01/18/24 08:02 Imaging Radiology Impressions: ITS Impressions Chest X-Ray 11/14/23 15:16 IMPRESSION: No evidence of acute disease. No pulmonary mass, pneumonia or pleural effusion. Chest CT 12/21/23 14:32 IMPRESSION: 1. No focal infiltrate is seen. 2. A 4 mm noncalcified subpleural nodule is seen within the posterior segment of the right upper lobe. According to the UPDATED 2017 Fleischner Society recommendations, the advised follow-up imaging for solid nodules < 6 mm is: LOW RISK PATIENT: No routine follow-up. HIGH RISK PATIENT: Optional CT at 12 months. 3. There is no thoracic lymphadenopathy or pleural effusion. 4. There is a marked kyphoscoliosis. No acute or aggressive osseous lesion is seen. 5. There is mild cholelithiasis. Fleischner guidelines were followed. KUB X-Ray 01/17/24 10:57 IMPRESSION: Multiple prominent, distended air-filled loops of small and large bowel. [id number] amount of stool in the colon. Correlation with clinical exam recommended to determine further management including possible additional imaging with CT scan of the abdomen and pelvis if abdominal pathology is suspected. This study was presented today January 19, 2024 for interpretation. Stat results provided at this time as requested by referring provider. Medications Medications Current Medications Famotidine (Famotidine 20 Mg Tablet) 20 mg PO DAILY [facility] Last Admin: 02/22/24 08:29 Dose: 20 mg Loperamide HCl (Loperamide Hcl 2 Mg Capsule) 2 mg PO Q4H PRN PRN Reason: loose stools Last Admin: 01/13/24 15:22 Dose: 2 mg Magnesium Hydroxide (Milk Of Magnesia 30 Ml Oral.Susp) 30 ml PO BID PRN PRN Reason: Constipation Last Admin: 02/11/24 11:39 Dose: 30 ml Memantine (Memantine Hcl 5 Mg Tablet) 5 mg PO BID [facility] Last Admin: 02/22/24 20:16 Dose: 5 mg Midodrine (Midodrine Hcl 10 Mg Tablet) 10 mg PO TID@0600,1200,1800 [facility] Last Admin: 02/23/24 06:30 Dose: 10 mg Mirtazapine (Mirtazapine 7.5 Mg Tablet) 7.5 mg PO BEDTIME [facility] Last Admin: 02/22/24 20:15 Dose: 7.5 mg Modafinil (Modafinil 100 Mg Tablet) 100 mg PO DAILY [facility] Last Admin: 02/22/24 08:29 Dose: 100 mg Polyethylene Glycol (Polyethylene Glycol 3350 17 Gm Powd.Pack) 17 gm PO DAILY [facility] Last Admin: 02/22/24 08:31 Dose: Not Given Risperidone (Risperidone 2 Mg Tablet) 2 mg PO BEDTIME [facility] Last Admin: 02/22/24 20:17 Dose: 2 mg Senna (Sennosides 8.6 Mg Tablet) 8.6 mg PO BEDTIME [facility] Last Admin: 02/22/24 20:16 Dose: 8.6 mg Vortioxetine (Vortioxetine Hydrobromide 5 Mg Tablet) 5 mg PO DAILY [facility] Last Admin: 02/22/24 08:29 Dose: 5 mg Allergies Allergies Allergy/AdvReac Type Severity Reaction Status Date / Time omeprazole Allergy Unknown Verified 10/30/23 00:09 Assessment & Plan Assessment & Plan (1) Schizophrenia: Status: Acute Code(s): F20.9 - Schizophrenia, unspecified (2) Failure to thrive in adult: Status: Acute Code(s): R62.7 - Adult failure to thrive Plan The patient is a 63-year-old male with a past history of schizophrenia who had been in and out of several facilities in the last year with severe hypoactive behavior, catatonic like symptoms and chronic noncompliance who needed to go for Section 7 and 8 for ECT. Even though that he had been treated with antipsychotics he remains still internally preoccupied. Plan 01/22/2024: No changes to current plan. Will add MiraLax 01/22: no changes 01/23 continue tx 01/24 continue tx. 01/25 continue tx 01/27 continue tx. 01/28: Continue current regimen and plans 01/29: Continue current regimen and plans. 01/30 continue tx. awaiting guardianship. 01/31 continue tx. 02/01 continue tx. 02/02 continue tx. 02/03 continue tx. 02/06 continue tx. 02/08: stable presentation. continue current mgmt. 02/09: no change 02/10: no change 02/11 continue same treatment 02/12 continue same treatment 02/13 continue tx. 02/14 continue tx. 02/15 continue tx 02/17 continue same treatment 02/18: appears slightly more wakeful and energetic than last time this marketing copywriter met with pt. continue current mgmt. 02/19: as per yesterday. 02/20 continue tx. 02/21 continue tx. 02/22 continue tx. Reason for continued inpatient stay Substantial Risk for: inability to function Time Spent With Patient Time: Total time managing care of this patient today ____ minutes.
[2024-02-23 10:27] VITALS: BP 105/71; PULSE 78; RESP 15; TEMP 36.9; O2SAT 96
[2024-02-23] MEDS: Famotidine 20 MG TABLET PO (10:29)
[2024-02-23] MEDS: Vortioxetine Hydrobromide 5 MG TABLET PO (10:29)
[2024-02-23] MEDS: modafiniL 100 MG TABLET PO (10:29)
[2024-02-23] MEDS: Memantine HCl 5 MG TABLET PO ×2 (10:29→20:23)
--- NOTE | 2024-02-23 12:09 | MHC.CLN ---
F/U DIET=REGULAR. ENSURE TID PROVIDES 1050 KCALS, 60 G PROTEIN. PATIENT ACCEPTS SUPPLEMENT. INTAKE USUALLY BITES OF FOOD AND ACCEPTS ENSURE. ENCOURAGE ADDITIONAL SNACKS AND SUPPLEMENTS FROM UNIT KITCHEN. REVIEW OF WEIGHT HX SHOWS WEIGHT OVERALL STABLE SINCE 11/03 (X 3 MONTHS). CONTINUE CURRENT DIET, SUPPLEMENTS AND ENCOURAGE INTAKE ABLE. RD TO FOLLOW UP WEEKLY.
[2024-02-23 13:13] VITALS: BP 106/74
[2024-02-23 17:27] VITALS: BP 90/57; PULSE 80
[2024-02-23 20:00] VITALS: RESP 18
[2024-02-23] MEDS: Mirtazapine 7.5 MG TABLET PO (20:23)
[2024-02-23] MEDS: risperiDONE 2 MG TABLET PO (20:23)
[2024-02-23] MEDS: Sennosides 8.6 MG TABLET PO (20:24)
[2024-02-24] MEDS: Midodrine HCl 10 MG TABLET PO ×3 (06:16→18:30)
[2024-02-24 07:00] VITALS: BMI 18.2
[2024-02-24 08:00] VITALS: BP 115/70; PULSE 83; RESP 16; TEMP 36.4; O2SAT 95
[2024-02-24] MEDS: Vortioxetine Hydrobromide 5 MG TABLET PO (08:34)
[2024-02-24] MEDS: Memantine HCl 5 MG TABLET PO ×2 (08:34→20:37)
[2024-02-24] MEDS: modafiniL 100 MG TABLET PO (08:34)
[2024-02-24] MEDS: Famotidine 20 MG TABLET PO (08:34)
[2024-02-24] MEDS: polyethylene glycoL 3350 17 GM POWD.PACK PO (08:35)
--- NOTE | 2024-02-24 09:09 | HO.PSYCHPN ---
Subjective Subjective Date of Service: 02/24/24 Reason For Visit: Schizoaffective disorder, unspecified type Subjective Notes: Section 8 Interim History: Pt slept 6 hrs. Pt was in bed most of the morning today, declined to talk with this sql report writer. Not interacting with peers or staff much. He at times declines medications, stating that they don't work. He has poverty of speech. He does state he wants to go to his own place. No aggression towards self or others. Review of Systems Review of Systems Constipation improving Yes all other systems are reviewed and are negative and Unobtainable due to mental status Mental Status Exam Mental Status Exam Patient Appearance: Unkempt Patient Orientation: Person and Situation Level of Consciousness: Awake Patient Behavior: Guarded and Passive Mood Description: Withdrawn Affect Description: Constricted Patient Cognition Impaired: Yes Ability to Follow Directions: Good Speech Pattern: Clear Diagnostics Vital Signs (24Hr): Vital Signs - 24 hr 02/23/24 10:27 02/23/24 13:13 02/23/24 17:27 Temperature 98.4 F Pulse Rate 78 80 Respiratory Rate 15 Blood Pressure 105/71 106/74 90/57 L Pulse Oximetry 96 Oxygen Delivery Method Room Air 02/23/24 20:00 02/24/24 08:00 Temperature 97.6 F Pulse Rate 83 Respiratory Rate 18 16 Blood Pressure 115/70 Pulse Oximetry 95 Oxygen Delivery Method Room Air BMI result Body Mass Index 17.1 Labs 02/11/24 10:12 01/18/24 08:02 Imaging Radiology Impressions: ITS Impressions Chest X-Ray 11/14/23 15:16 IMPRESSION: No evidence of acute disease. No pulmonary mass, pneumonia or pleural effusion. Chest CT 12/21/23 14:32 IMPRESSION: 1. No focal infiltrate is seen. 2. A 4 mm noncalcified subpleural nodule is seen within the posterior segment of the right upper lobe. According to the UPDATED 2017 Fleischner Society recommendations, the advised follow-up imaging for solid nodules < 6 mm is: LOW RISK PATIENT: No routine follow-up. HIGH RISK PATIENT: Optional CT at 12 months. 3. There is no thoracic lymphadenopathy or pleural effusion. 4. There is a marked kyphoscoliosis. No acute or aggressive osseous lesion is seen. 5. There is mild cholelithiasis. Fleischner guidelines were followed. KUB X-Ray 01/17/24 10:57 IMPRESSION: Multiple prominent, distended air-filled loops of small and large bowel. [id number] amount of stool in the colon. Correlation with clinical exam recommended to determine further management including possible additional imaging with CT scan of the abdomen and pelvis if abdominal pathology is suspected. This study was presented today January 19, 2024 for interpretation. Stat results provided at this time as requested by referring provider. Medications Medications Current Medications Famotidine (Famotidine 20 Mg Tablet) 20 mg PO DAILY [facility] Last Admin: 02/24/24 08:34 Dose: 20 mg Loperamide HCl (Loperamide Hcl 2 Mg Capsule) 2 mg PO Q4H PRN PRN Reason: loose stools Last Admin: 01/13/24 15:22 Dose: 2 mg Magnesium Hydroxide (Milk Of Magnesia 30 Ml Oral.Susp) 30 ml PO BID PRN PRN Reason: Constipation Last Admin: 02/11/24 11:39 Dose: 30 ml Memantine (Memantine Hcl 5 Mg Tablet) 5 mg PO BID [facility] Last Admin: 02/24/24 08:34 Dose: 5 mg Midodrine (Midodrine Hcl 10 Mg Tablet) 10 mg PO TID@0600,1200,1800 [facility] Last Admin: 02/24/24 06:16 Dose: 10 mg Mirtazapine (Mirtazapine 7.5 Mg Tablet) 7.5 mg PO BEDTIME [facility] Last Admin: 02/23/24 20:23 Dose: 7.5 mg Modafinil (Modafinil 100 Mg Tablet) 100 mg PO DAILY [facility] Last Admin: 02/24/24 08:34 Dose: 100 mg Polyethylene Glycol (Polyethylene Glycol 3350 17 Gm Powd.Pack) 17 gm PO DAILY [facility] Last Admin: 02/24/24 08:35 Dose: 17 gm Risperidone (Risperidone 2 Mg Tablet) 2 mg PO BEDTIME [facility] Last Admin: 02/23/24 20:23 Dose: 2 mg Senna (Sennosides 8.6 Mg Tablet) 8.6 mg PO BEDTIME [facility] Last Admin: 02/23/24 20:24 Dose: 8.6 mg Vortioxetine (Vortioxetine Hydrobromide 5 Mg Tablet) 5 mg PO DAILY [facility] Last Admin: 02/24/24 08:34 Dose: 5 mg Allergies Allergies Allergy/AdvReac Type Severity Reaction Status Date / Time omeprazole Allergy Unknown Verified 10/30/23 00:09 Assessment & Plan Assessment & Plan (1) Schizophrenia: Status: Acute Code(s): F20.9 - Schizophrenia, unspecified (2) Failure to thrive in adult: Status: Acute Code(s): R62.7 - Adult failure to thrive Plan The patient is a 63-year-old male with a past history of schizophrenia who had been in and out of several facilities in the last year with severe hypoactive behavior, catatonic like symptoms and chronic noncompliance who needed to go for Section 7 and 8 for ECT. Even though that he had been treated with antipsychotics he remains still internally preoccupied. Plan 01/22/2024: No changes to current plan. Will add MiraLax 01/22: no changes 01/23 continue tx 01/24 continue tx. 01/25 continue tx 01/27 continue tx. 01/28: Continue current regimen and plans 01/29: Continue current regimen and plans. 01/30 continue tx. awaiting guardianship. 01/31 continue tx. 02/01 continue tx. 02/02 continue tx. 02/03 continue tx. 02/06 continue tx. 02/08: stable presentation. continue current mgmt. 02/09: no change 02/10: no change 02/11 continue same treatment 02/12 continue same treatment 02/13 continue tx. 02/14 continue tx. 02/15 continue tx 02/17 continue same treatment 02/18: appears slightly more wakeful and energetic than last time this sql report writer met with pt. continue current mgmt. 02/19: as per yesterday. 02/20 continue tx. 02/21 continue tx. 02/22 continue tx. 02/23 continue tx. Reason for continued inpatient stay Substantial Risk for: inability to function Time Spent With Patient Time: Total time managing care of this patient today ____ minutes.
[2024-02-24 12:52] VITALS: BP 99/63; PULSE 83; RESP 16
[2024-02-24 18:29] VITALS: BP 90/60
[2024-02-24 20:00] VITALS: BP 100/65; PULSE 98; RESP 16; TEMP 36.9; O2SAT 96
[2024-02-24] MEDS: risperiDONE 2 MG TABLET PO (20:37)
[2024-02-24] MEDS: Sennosides 8.6 MG TABLET PO (20:37)
[2024-02-24] MEDS: Mirtazapine 7.5 MG TABLET PO (20:37)
[2024-02-25] MEDS: Midodrine HCl 10 MG TABLET PO ×3 (06:07→17:09)
[2024-02-25 06:11] VITALS: BP 91/66; PULSE 94
--- NOTE | 2024-02-25 08:26 | P.PNPSI_ITS ---
Subjective Subjective Date of Service: 02/25/24 Reason For Visit: Schizoaffective disorder, unspecified type Subjective Notes: Section 8 Interim History: Pt slept 6 hrs. Pt was in bed most of the morning today, declined to talk with this jingle writer. Not interacting with peers or staff much. He at times declines medications, stating that they don't work. He has poverty of speech. He does state he wants to go to his own place. No aggression towards self or others. Review of Systems Review of Systems Constipation improving Yes all other systems are reviewed and are negative and Unobtainable due to mental status Mental Status Exam Mental Status Exam Patient Appearance: Unkempt Patient Orientation: Person and Situation Level of Consciousness: Awake Patient Behavior: Guarded and Passive Mood Description: Withdrawn Affect Description: Constricted Patient Cognition Impaired: Yes Ability to Follow Directions: Good Speech Pattern: Clear Diagnostics Vital Signs (24Hr): Vital Signs - 24 hr 02/24/24 12:52 02/24/24 18:29 02/24/24 20:00 Temperature 98.5 F Pulse Rate 83 98 Respiratory Rate 16 16 Blood Pressure 99/63 90/60 100/65 Pulse Oximetry 96 Oxygen Delivery Method Room Air 02/25/24 06:11 Temperature Pulse Rate 94 Respiratory Rate Blood Pressure 91/66 Pulse Oximetry Oxygen Delivery Method BMI result Body Mass Index 18.2 Labs 02/11/24 10:12 01/18/24 08:02 Imaging Radiology Impressions: ITS Impressions Chest X-Ray 11/14/23 15:16 IMPRESSION: No evidence of acute disease. No pulmonary mass, pneumonia or pleural effusion. Chest CT 12/21/23 14:32 IMPRESSION: 1. No focal infiltrate is seen. 2. A 4 mm noncalcified subpleural nodule is seen within the posterior segment of the right upper lobe. According to the UPDATED 2017 Fleischner Society recommendations, the advised follow-up imaging for solid nodules < 6 mm is: LOW RISK PATIENT: No routine follow-up. HIGH RISK PATIENT: Optional CT at 12 months. 3. There is no thoracic lymphadenopathy or pleural effusion. 4. There is a marked kyphoscoliosis. No acute or aggressive osseous lesion is seen. 5. There is mild cholelithiasis. Fleischner guidelines were followed. KUB X-Ray 01/17/24 10:57 IMPRESSION: Multiple prominent, distended air-filled loops of small and large bowel. [id number] amount of stool in the colon. Correlation with clinical exam recommended to determine further management including possible additional imaging with CT scan of the abdomen and pelvis if abdominal pathology is suspected. This study was presented today January 19, 2024 for interpretation. Stat results provided at this time as requested by referring provider. Medications Medications Current Medications Famotidine (Famotidine 20 Mg Tablet) 20 mg PO DAILY [facility] Last Admin: 02/24/24 08:34 Dose: 20 mg Loperamide HCl (Loperamide Hcl 2 Mg Capsule) 2 mg PO Q4H PRN PRN Reason: loose stools Last Admin: 01/13/24 15:22 Dose: 2 mg Magnesium Hydroxide (Milk Of Magnesia 30 Ml Oral.Susp) 30 ml PO BID PRN PRN Reason: Constipation Last Admin: 02/11/24 11:39 Dose: 30 ml Memantine (Memantine Hcl 5 Mg Tablet) 5 mg PO BID [facility]PL[facility]ED BY [facility] Last Admin: 02/24/24 20:37 Dose: 5 mg Midodrine (Midodrine Hcl 10 Mg Tablet) 10 mg PO TID@0600,1200,1800 REPLACED BY [facility] Last Admin: 02/25/24 06:07 Dose: 10 mg Mirtazapine (Mirtazapine 7.5 Mg Tablet) 7.5 mg PO BEDTIME REPLACED BY [facility] Last Admin: 02/24/24 20:37 Dose: 7.5 mg Modafinil (Modafinil 100 Mg Tablet) 100 mg PO DAILY [facility]PL[facility] Last Admin: 02/24/24 08:34 Dose: 100 mg Polyethylene Glycol (Polyethylene Glycol 3350 17 Gm Powd.Pack) 17 gm PO DAILY [facility]PL[facility] BY [facility] Last Admin: 02/24/24 08:35 Dose: 17 gm Risperidone (Risperidone 2 Mg Tablet) 2 mg PO BEDTIME REPLACED BY [facility] Last Admin: 02/24/24 20:37 Dose: 2 mg Senna (Sennosides 8.6 Mg Tablet) 8.6 mg PO BEDTIME REPLACED BY [facility] Last Admin: 02/24/24 20:37 Dose: 8.6 mg Vortioxetine (Vortioxetine Hydrobromide 5 Mg Tablet) 5 mg PO DAILY [facility]PLACED BY [facility] Last Admin: 02/24/24 08:34 Dose: 5 mg Allergies Allergies Allergy/AdvReac Type Severity Reaction Status Date / Time omeprazole Allergy Unknown Verified 10/30/23 00:09 Assessment & Plan Assessment & Plan (1) Schizophrenia: Status: Acute Code(s): F20.9 - Schizophrenia, unspecified (2) Failure to thrive in adult: Status: Acute Code(s): R62.7 - Adult failure to thrive Plan The patient is a 63-year-old male with a past history of schizophrenia who had been in and out of several facilities in the last year with severe hypoactive behavior, catatonic like symptoms and chronic noncompliance who needed to go for Section 7 and 8 for ECT. Even though that he had been treated with antipsychotics he remains still internally preoccupied. Plan 01/22/2024: No changes to current plan. Will add MiraLax 01/22: no changes 01/23 continue tx 01/24 continue tx. 01/25 continue tx 01/27 continue tx. 01/28: Continue current regimen and plans 01/29: Continue current regimen and plans. 01/30 continue tx. awaiting guardianship. 01/31 continue tx. 02/01 continue tx. 02/02 continue tx. 02/03 continue tx. 02/06 continue tx. 02/08: stable presentation. continue current mgmt. 02/09: no change 02/10: no change 02/11 continue same treatment 02/12 continue same treatment 02/13 continue tx. 02/14 continue tx. 02/15 continue tx 02/17 continue same treatment 02/18: appears slightly more wakeful and energetic than last time this jingle writer met with pt. continue current mgmt. 02/19: as per yesterday. 02/20 continue tx. 02/21 continue tx. 02/22 continue tx. 02/24 continue tx. Reason for continued inpatient stay Substantial Risk for: inability to function Time Spent With Patient Time: Total time managing care of this patient today ____ minutes.
[2024-02-25 13:07] VITALS: BP 98/65
[2024-02-25 17:08] VITALS: BP 112/55
[2024-02-25] MEDS: Sennosides 8.6 MG TABLET PO (20:21)
[2024-02-25] MEDS: Memantine HCl 5 MG TABLET PO (20:21)
[2024-02-25] MEDS: risperiDONE 2 MG TABLET PO (20:21)
[2024-02-25] MEDS: Mirtazapine 7.5 MG TABLET PO (20:21)
[2024-02-26 08:00] VITALS: BP 90/54; PULSE 64; RESP 18; TEMP 36.6; O2SAT 95
[2024-02-26] MEDS: Midodrine HCl 10 MG TABLET PO (18:34)
[2024-02-26 20:00] VITALS: BP 97/69; PULSE 85; RESP 18; TEMP 36.5; O2SAT 95
[2024-02-26] MEDS: Sennosides 8.6 MG TABLET PO (20:32)
[2024-02-26] MEDS: Memantine HCl 5 MG TABLET PO (20:32)
[2024-02-26] MEDS: Mirtazapine 7.5 MG TABLET PO (20:32)
[2024-02-26] MEDS: risperiDONE 2 MG TABLET PO (20:32)
--- NOTE | 2024-02-26 21:04 | P.PNPSI_ITS ---
Subjective Subjective Date of Service: 02/26/24 Reason For Visit: Schizoaffective disorder, unspecified type Subjective Notes: Section 8 Interim History: 63 yo quite withdrawn, saying doesn't feel well doesn't want to talk - did not eat this am and refused am bp boosting med- suggested to pt eat and drink fluids to keep bp up as well as take his med- says he doesn't feel up to it FTT vs catatonic like state? Medication Compliance: Intermittent Side effects from medications: No Attending Groups: No Review of Systems will need to follow if he stops eating/drinking if he develops medical changes from this Medical Review of Systems: changed (says doesn't feel well but very vague can't specify) Mental Status Exam Mental Status Exam Patient Appearance: Fatigued, Disheveled and Unkempt Patient Orientation: Person and Place Level of Consciousness: Drowsy Patient Behavior: Passive, Resistive to Care and Poor Eye Contact Mood Description: Withdrawn, Constricted and Flat Affect Description: Flat Ability to Follow Directions: Poor Speech Pattern: Clear Thought Process: Intact Thought Content: positive for [place] and positive for Poverty of Content Depressive Symptoms: Sleeping More Than Usual and Loss of Int. in Activity Abnormal Motor Activity Signs and Symptoms: Psychomotor Retardation Judgement: Poor Diagnostics Vital Signs (24Hr): Vital Signs - 24 hr 02/26/24 08:00 02/26/24 20:00 Temperature 97.8 F 97.7 F Pulse Rate 64 85 Respiratory Rate 18 18 Blood Pressure 90/54 L 97/69 Pulse Oximetry 95 95 Oxygen Delivery Method Room Air Room Air BMI result Body Mass Index 18.2 Labs 02/11/24 10:12 01/18/24 08:02 Imaging Radiology Impressions: ITS Impressions Chest X-Ray 11/14/23 15:16 IMPRESSION: No evidence of acute disease. No pulmonary mass, pneumonia or pleural effusion. Chest CT 12/21/23 14:32 IMPRESSION: 1. No focal infiltrate is seen. 2. A 4 mm noncalcified subpleural nodule is seen within the posterior segment of the right upper lobe. According to the UPDATED 2017 Fleischner Society recommendations, the advised follow-up imaging for solid nodules < 6 mm is: LOW RISK PATIENT: No routine follow-up. HIGH RISK PATIENT: Optional CT at 12 months. 3. There is no thoracic lymphadenopathy or pleural effusion. 4. There is a marked kyphoscoliosis. No acute or aggressive osseous lesion is seen. 5. There is mild cholelithiasis. Fleischner guidelines were followed. KUB X-Ray 01/17/24 10:57 IMPRESSION: Multiple prominent, distended air-filled loops of small and large bowel. [id number] amount of stool in the colon. Correlation with clinical exam recommended to determine further management including possible additional imaging with CT scan of the abdomen and pelvis if abdominal pathology is suspected. This study was presented today January 19, 2024 for interpretation. Stat results provided at this time as requested by referring provider. Medications Medications Current Medications Famotidine (Famotidine 20 Mg Tablet) 20 mg PO DAILY [facility] Last Admin: 02/26/24 09:36 Dose: Not Given Loperamide HCl (Loperamide Hcl 2 Mg Capsule) 2 mg PO Q4H PRN PRN Reason: loose stools Last Admin: 01/13/24 15:22 Dose: 2 mg Magnesium Hydroxide (Milk Of Magnesia 30 Ml Oral.Susp) 30 ml PO BID PRN PRN Reason: Constipation Last Admin: 02/11/24 11:39 Dose: 30 ml Memantine (Memantine Hcl 5 Mg Tablet) 5 mg PO BID [facility] Last Admin: 02/26/24 20:32 Dose: 5 mg Midodrine (Midodrine Hcl 10 Mg Tablet) 10 mg PO TID@0600,1200,1800 [facility] Last Admin: 02/26/24 18:34 Dose: 10 mg Mirtazapine (Mirtazapine 7.5 Mg Tablet) 7.5 mg PO BEDTIME [facility] Last Admin: 02/26/24 20:32 Dose: 7.5 mg Modafinil (Modafinil 100 Mg Tablet) 100 mg PO DAILY [facility] Last Admin: 02/26/24 09:36 Dose: Not Given Polyethylene Glycol (Polyethylene Glycol 3350 17 Gm Powd.Pack) 17 gm PO DAILY [facility] Last Admin: 02/26/24 09:36 Dose: Not Given Risperidone (Risperidone 2 Mg Tablet) 2 mg PO BEDTIME [facility] Last Admin: 02/26/24 20:32 Dose: 2 mg Senna (Sennosides 8.6 Mg Tablet) 8.6 mg PO BEDTIME [facility] Last Admin: 02/26/24 20:32 Dose: 8.6 mg Vortioxetine (Vortioxetine Hydrobromide 5 Mg Tablet) 5 mg PO DAILY [facility] Last Admin: 02/26/24 09:36 Dose: Not Given Allergies Allergies Allergy/AdvReac Type Severity Reaction Status Date / Time omeprazole Allergy Unknown Verified 10/30/23 00:09 Assessment & Plan Assessment & Plan (1) Schizophrenia: Status: Acute Code(s): F20.9 - Schizophrenia, unspecified (2) Failure to thrive in adult: Status: Acute Code(s): R62.7 - Adult failure to thrive Plan The patient is a 63-year-old male with a past history of schizophrenia who had been in and out of several facilities in the last year with severe hypoactive behavior, catatonic like symptoms and chronic noncompliance who needed to go for Section 7 and 8 for ECT. Even though that he had been treated with antipsychotics he remains still internally preoccupied. Plan 01/22/2024: No changes to current plan. Will add MiraLax 01/22: no changes 01/23 continue tx 01/24 continue tx. 01/25 continue tx 01/27 continue tx. 01/28: Continue current regimen and plans 01/29: Continue current regimen and plans. 01/30 continue tx. awaiting guardianship. 01/31 continue tx. 02/01 continue tx. 02/02 continue tx. 02/03 continue tx. 02/06 continue tx. 02/08: stable presentation. continue current mgmt. 02/09: no change 02/10: no change 02/11 continue same treatment 02/12 continue same treatment 02/13 continue tx. 02/14 continue tx. 02/15 continue tx 02/17 continue same treatment 02/18: appears slightly more wakeful and energetic than last time this check writer salesperson met with pt. continue current mgmt. 02/19: as per yesterday. 02/20 continue tx. 02/21 continue tx. 02/22 continue tx. 02/24 continue tx. 02/25 no change ? worsening- follow vs get labs if continues to refuse food/hydration Patient educated on: medical condition Informed Consent: further education needed (may understand but feel unable to do differently) Reason for continued inpatient stay Substantial Risk for: inability to function, rapid decompensation and med/psych decompensation Time Spent With Patient Time: Total time managing care of this patient today ____ minutes.
[2024-02-27] MEDS: Midodrine HCl 10 MG TABLET PO ×3 (06:40→17:00)
[2024-02-27 08:13] VITALS: BP 98/68; PULSE 82; RESP 18; TEMP 36.3; O2SAT 97
[2024-02-27] MEDS: Vortioxetine Hydrobromide 5 MG TABLET PO (09:02)
[2024-02-27] MEDS: Memantine HCl 5 MG TABLET PO ×2 (09:02→20:36)
[2024-02-27] MEDS: Famotidine 20 MG TABLET PO (09:02)
[2024-02-27] MEDS: modafiniL 100 MG TABLET PO (09:02)
[2024-02-27 11:50] VITALS: BP 104/77
[2024-02-27 16:57] VITALS: BP 111/73
[2024-02-27 20:00] VITALS: BP 98/59; PULSE 88; RESP 16; TEMP 36.2; O2SAT 96
[2024-02-27] MEDS: Sennosides 8.6 MG TABLET PO (20:36)
[2024-02-27] MEDS: Mirtazapine 7.5 MG TABLET PO (20:36)
[2024-02-27] MEDS: risperiDONE 2 MG TABLET PO (20:36)
[2024-02-27] MEDS: Milk of Magnesia 30 ML ORAL.SUSP PO (20:36)
[2024-02-28 05:51] VITALS: BP 103/61; PULSE 89
[2024-02-28] MEDS: Midodrine HCl 10 MG TABLET PO ×3 (05:56→17:53)
[2024-02-28 08:00] VITALS: BP 128/80; PULSE 87; RESP 18; TEMP 36.6; O2SAT 99
--- NOTE | 2024-02-28 08:55 | P.PNPSI_ITS ---
Subjective Subjective Date of Service: 02/28/24 Reason For Visit: Schizoaffective disorder, unspecified type Subjective Notes: Section 8 Interim History: Pt slept through the night. He reports he has a mobile home here in parking lot that he explains won while watching the rush is right while here on the unit. He states that it was home audience and he heard the TV called his name. When asked about other messages from the TV, he denies. He denies SI/HI. He continues to report that sister are to blame for him being here. He takes medications intermittently. Review of Systems Review of Systems Constipation improving Yes all other systems are reviewed and are negative and Unobtainable due to mental status Mental Status Exam Mental Status Exam Patient Appearance: Fatigued, Disheveled and Unkempt Patient Orientation: Person and Place Level of Consciousness: Drowsy Patient Behavior: Passive, Resistive to Care and Poor Eye Contact Mood Description: Withdrawn, Constricted and Flat Affect Description: Flat Patient Cognition Impaired: Yes Ability to Follow Directions: Poor Speech Pattern: Clear Diagnostics Vital Signs (24Hr): Vital Signs - 24 hr 02/27/24 11:50 02/27/24 16:57 02/27/24 20:00 Temperature 97.1 F Pulse Rate 88 Respiratory Rate 16 Blood Pressure 104/77 111/73 98/59 L Pulse Oximetry 96 Oxygen Delivery Method Room Air 02/28/24 05:51 02/28/24 08:00 Temperature 97.8 F Pulse Rate 89 87 Respiratory Rate 18 Blood Pressure 103/61 128/80 Pulse Oximetry 99 Oxygen Delivery Method Room Air BMI result Body Mass Index 18.2 Labs 02/11/24 10:12 01/18/24 08:02 Imaging Radiology Impressions: ITS Impressions Chest X-Ray 11/14/23 15:16 IMPRESSION: No evidence of acute disease. No pulmonary mass, pneumonia or pleural effusion. Chest CT 12/21/23 14:32 IMPRESSION: 1. No focal infiltrate is seen. 2. A 4 mm noncalcified subpleural nodule is seen within the posterior segment of the right upper lobe. According to the UPDATED 2017 Fleischner Society recommendations, the advised follow-up imaging for solid nodules < 6 mm is: LOW RISK PATIENT: No routine follow-up. HIGH RISK PATIENT: Optional CT at 12 months. 3. There is no thoracic lymphadenopathy or pleural effusion. 4. There is a marked kyphoscoliosis. No acute or aggressive osseous lesion is seen. 5. There is mild cholelithiasis. Fleischner guidelines were followed. KUB X-Ray 01/17/24 10:57 IMPRESSION: Multiple prominent, distended air-filled loops of small and large bowel. [id number] amount of stool in the colon. Correlation with clinical exam recommended to determine further management including possible additional imaging with CT scan of the abdomen and pelvis if abdominal pathology is suspected. This study was presented today January 19, 2024 for interpretation. Stat results provided at this time as requested by referring provider. Medications Medications Current Medications Famotidine (Famotidine 20 Mg Tablet) 20 mg PO DAILY [facility] Last Admin: 02/27/24 09:02 Dose: 20 mg Loperamide HCl (Loperamide Hcl 2 Mg Capsule) 2 mg PO Q4H PRN PRN Reason: loose stools Last Admin: 01/13/24 15:22 Dose: 2 mg Magnesium Hydroxide (Milk Of Magnesia 30 Ml Oral.Susp) 30 ml PO BID PRN PRN Reason: Constipation Last Admin: 02/27/24 20:36 Dose: 30 ml Memantine (Memantine Hcl 5 Mg Tablet) 5 mg PO BID [facility] Last Admin: 02/27/24 20:36 Dose: 5 mg Midodrine (Midodrine Hcl 10 Mg Tablet) 10 mg PO TID@0600,1200,1800 [facility] Last Admin: 02/28/24 05:56 Dose: 10 mg Mirtazapine (Mirtazapine 7.5 Mg Tablet) 7.5 mg PO BEDTIME [facility] Last Admin: 02/27/24 20:36 Dose: 7.5 mg Modafinil (Modafinil 100 Mg Tablet) 100 mg PO DAILY [facility] Last Admin: 02/27/24 09:02 Dose: 100 mg Polyethylene Glycol (Polyethylene Glycol 3350 17 Gm Powd.Pack) 17 gm PO DAILY [facility] Last Admin: 02/27/24 09:02 Dose: Not Given Risperidone (Risperidone 2 Mg Tablet) 2 mg PO BEDTIME [facility] Last Admin: 02/27/24 20:36 Dose: 2 mg Senna (Sennosides 8.6 Mg Tablet) 8.6 mg PO BEDTIME [facility] Last Admin: 02/27/24 20:36 Dose: 8.6 mg Vortioxetine (Vortioxetine Hydrobromide 5 Mg Tablet) 5 mg PO DAILY [facility] Last Admin: 02/27/24 09:02 Dose: 5 mg Allergies Allergies Allergy/AdvReac Type Severity Reaction Status Date / Time omeprazole Allergy Unknown Verified 10/30/23 00:09 Assessment & Plan Assessment & Plan (1) Schizophrenia: Status: Acute Code(s): F20.9 - Schizophrenia, unspecified (2) Failure to thrive in adult: Status: Acute Code(s): R62.7 - Adult failure to thrive Plan The patient is a 63-year-old male with a past history of schizophrenia who had been in and out of several facilities in the last year with severe hypoactive behavior, catatonic like symptoms and chronic noncompliance who needed to go for Section 7 and 8 for ECT. Even though that he had been treated with antipsychotics he remains still internally preoccupied. Plan 01/22/2024: No changes to current plan. Will add MiraLax 01/22: no changes 01/23 continue tx 01/24 continue tx. 01/25 continue tx 01/27 continue tx. 01/28: Continue current regimen and plans 01/29: Continue current regimen and plans. 01/30 continue tx. awaiting guardianship. 01/31 continue tx. 02/01 continue tx. 02/02 continue tx. 02/03 continue tx. 02/06 continue tx. 02/08: stable presentation. continue current mgmt. 02/09: no change 02/10: no change 02/11 continue same treatment 02/12 continue same treatment 02/13 continue tx. 02/14 continue tx. 02/15 continue tx 02/17 continue same treatment 02/18: appears slightly more wakeful and energetic than last time this health underwriter met with pt. continue current mgmt. 02/19: as per yesterday. 02/20 continue tx. 02/21 continue tx. 02/22 continue tx. 02/24 continue tx. 02/25 no change ? worsening- follow vs get labs if continues to refuse food/hydration 02/27 continue tx. Reason for continued inpatient stay Substantial Risk for: inability to function Time Spent With Patient Time: Total time managing care of this patient today ____ minutes.
[2024-02-28] MEDS: Famotidine 20 MG TABLET PO (09:50)
[2024-02-28] MEDS: Memantine HCl 5 MG TABLET PO ×2 (09:50→20:21)
[2024-02-28] MEDS: Vortioxetine Hydrobromide 5 MG TABLET PO (09:50)
[2024-02-28] MEDS: modafiniL 100 MG TABLET PO (09:50)
--- NOTE | 2024-02-28 17:54 | PC.NURSE ---
Bp 109/75, p 86 at 12:00 and 98/56, P 78 at 5:50pm. Midodrine given to pt.
[2024-02-28 20:00] VITALS: BP 91/56; PULSE 66; RESP 18; TEMP 36.1; O2SAT 98
[2024-02-28] MEDS: Mirtazapine 7.5 MG TABLET PO (20:21)
[2024-02-28] MEDS: Sennosides 8.6 MG TABLET PO (20:21)
[2024-02-28] MEDS: risperiDONE 2 MG TABLET PO (20:21)
[2024-02-29] MEDS: Midodrine HCl 10 MG TABLET PO ×3 (06:16→17:33)
[2024-02-29 07:55] VITALS: BP 91/69; PULSE 82; RESP 18; TEMP 36.6; O2SAT 97
[2024-02-29] MEDS: polyethylene glycoL 3350 17 GM POWD.PACK PO (08:36)
[2024-02-29] MEDS: Memantine HCl 5 MG TABLET PO ×2 (08:36→20:39)
[2024-02-29] MEDS: Famotidine 20 MG TABLET PO (08:36)
[2024-02-29] MEDS: Vortioxetine Hydrobromide 5 MG TABLET PO (08:36)
[2024-02-29] MEDS: modafiniL 100 MG TABLET PO (08:36)
--- NOTE | 2024-02-29 09:07 | P.PNPSI_ITS ---
Subjective Subjective Date of Service: 02/29/24 Reason For Visit: Schizoaffective disorder, unspecified type Subjective Notes: Section 8 Interim History: Pt slept through the night. He continues to report he has a mobile home here in parking lot that he explains won while watching the rush is right while here on the unit. He states that it was home audience and he heard the TV called his name. When asked about other messages from the TV, he denies. He denies SI/HI. He continues to report that sister are to blame for him being here. He takes medications intermittently. He is visible for some meals. attempting to go out the unit stating that he was going to his mobile home in the parking lot. Review of Systems Review of Systems Constipation improving Yes all other systems are reviewed and are negative and Unobtainable due to mental status Mental Status Exam Mental Status Exam Patient Appearance: Fatigued, Disheveled and Unkempt Patient Orientation: Person and Place Level of Consciousness: Drowsy Patient Behavior: Passive, Resistive to Care and Poor Eye Contact Mood Description: Withdrawn, Constricted and Flat Affect Description: Flat Patient Cognition Impaired: Yes Ability to Follow Directions: Poor Speech Pattern: Clear Diagnostics Vital Signs (24Hr): Vital Signs - 24 hr 02/28/24 20:00 Temperature 96.9 F Pulse Rate 66 Respiratory Rate 18 Blood Pressure 91/56 L Pulse Oximetry 98 Oxygen Delivery Method Room Air BMI result Body Mass Index 18.2 Labs 02/11/24 10:12 01/18/24 08:02 Imaging Radiology Impressions: ITS Impressions Chest X-Ray 11/14/23 15:16 IMPRESSION: No evidence of acute disease. No pulmonary mass, pneumonia or pleural effusion. Chest CT 12/21/23 14:32 IMPRESSION: 1. No focal infiltrate is seen. 2. A 4 mm noncalcified subpleural nodule is seen within the posterior segment of the right upper lobe. According to the UPDATED 2017 Fleischner Society recommendations, the advised follow-up imaging for solid nodules < 6 mm is: LOW RISK PATIENT: No routine follow-up. HIGH RISK PATIENT: Optional CT at 12 months. 3. There is no thoracic lymphadenopathy or pleural effusion. 4. There is a marked kyphoscoliosis. No acute or aggressive osseous lesion is seen. 5. There is mild cholelithiasis. Fleischner guidelines were followed. KUB X-Ray 01/17/24 10:57 IMPRESSION: Multiple prominent, distended air-filled loops of small and large bowel. [id number] amount of stool in the colon. Correlation with clinical exam recommended to determine further management including possible additional imaging with CT scan of the abdomen and pelvis if abdominal pathology is suspected. This study was presented today January 19, 2024 for interpretation. Stat results provided at this time as requested by referring provider. Medications Medications Current Medications Famotidine (Famotidine 20 Mg Tablet) 20 mg PO DAILY [facility] Last Admin: 02/29/24 08:36 Dose: 20 mg Loperamide HCl (Loperamide Hcl 2 Mg Capsule) 2 mg PO Q4H PRN PRN Reason: loose stools Last Admin: 01/13/24 15:22 Dose: 2 mg Magnesium Hydroxide (Milk Of Magnesia 30 Ml Oral.Susp) 30 ml PO BID PRN PRN Reason: Constipation Last Admin: 02/27/24 20:36 Dose: 30 ml Memantine (Memantine Hcl 5 Mg Tablet) 5 mg PO BID [facility] Last Admin: 02/29/24 08:36 Dose: 5 mg Midodrine (Midodrine Hcl 10 Mg Tablet) 10 mg PO TID@0600,1200,1800 [facility] Last Admin: 02/29/24 06:16 Dose: 10 mg Mirtazapine (Mirtazapine 7.5 Mg Tablet) 7.5 mg PO BEDTIME [facility] Last Admin: 02/28/24 20:21 Dose: 7.5 mg Modafinil (Modafinil 100 Mg Tablet) 100 mg PO DAILY [facility] Last Admin: 02/29/24 08:36 Dose: 100 mg Polyethylene Glycol (Polyethylene Glycol 3350 17 Gm Powd.Pack) 17 gm PO DAILY [facility] Last Admin: 02/29/24 08:36 Dose: 17 gm Risperidone (Risperidone 2 Mg Tablet) 2 mg PO BEDTIME [facility] Last Admin: 02/28/24 20:21 Dose: 2 mg Senna (Sennosides 8.6 Mg Tablet) 8.6 mg PO BEDTIME [facility] Last Admin: 02/28/24 20:21 Dose: 8.6 mg Vortioxetine (Vortioxetine Hydrobromide 5 Mg Tablet) 5 mg PO DAILY [facility] Last Admin: 02/29/24 08:36 Dose: 5 mg Allergies Allergies Allergy/AdvReac Type Severity Reaction Status Date / Time omeprazole Allergy Unknown Verified 10/30/23 00:09 Assessment & Plan Assessment & Plan (1) Schizophrenia: Status: Acute Code(s): F20.9 - Schizophrenia, unspecified (2) Failure to thrive in adult: Status: Acute Code(s): R62.7 - Adult failure to thrive Plan The patient is a 63-year-old male with a past history of schizophrenia who had been in and out of several facilities in the last year with severe hypoactive behavior, catatonic like symptoms and chronic noncompliance who needed to go for Section 7 and 8 for ECT. Even though that he had been treated with antipsychotics he remains still internally preoccupied. Plan 01/22/2024: No changes to current plan. Will add MiraLax 01/22: no changes 01/23 continue tx 01/24 continue tx. 01/25 continue tx 01/27 continue tx. 01/28: Continue current regimen and plans 01/29: Continue current regimen and plans. 01/30 continue tx. awaiting guardianship. 01/31 continue tx. 02/01 continue tx. 02/02 continue tx. 02/03 continue tx. 02/06 continue tx. 02/08: stable presentation. continue current mgmt. 02/09: no change 02/10: no change 02/11 continue same treatment 02/12 continue same treatment 02/13 continue tx. 02/14 continue tx. 02/15 continue tx 02/17 continue same treatment 02/18: appears slightly more wakeful and energetic than last time this staff writer met with pt. continue current mgmt. 02/19: as per yesterday. 02/20 continue tx. 02/21 continue tx. 02/22 continue tx. 02/24 continue tx. 02/25 no change ? worsening- follow vs get labs if continues to refuse food/hydration 02/27 continue tx. 02/28 continue tx. Reason for continued inpatient stay Substantial Risk for: inability to function Time Spent With Patient Time: Total time managing care of this patient today ____ minutes.
[2024-02-29 20:00] VITALS: BP 159/75; PULSE 75; RESP 16; TEMP 36; O2SAT 98
[2024-02-29] MEDS: Mirtazapine 7.5 MG TABLET PO (20:39)
[2024-02-29] MEDS: Sennosides 8.6 MG TABLET PO (20:39)
[2024-02-29] MEDS: risperiDONE 2 MG TABLET PO (20:39)
[2024-03-01] MEDS: Midodrine HCl 10 MG TABLET PO ×3 (05:32→17:21)
[2024-03-01 05:34] VITALS: BP 74/48
[2024-03-01 08:00] VITALS: BP 88/56; PULSE 64; RESP 18; TEMP 36.2; O2SAT 97
[2024-03-01] MEDS: Famotidine 20 MG TABLET PO (09:11)
[2024-03-01] MEDS: Vortioxetine Hydrobromide 5 MG TABLET PO (09:11)
[2024-03-01] MEDS: modafiniL 100 MG TABLET PO (09:11)
[2024-03-01] MEDS: Memantine HCl 5 MG TABLET PO ×2 (09:11→20:58)
[2024-03-01] MEDS: polyethylene glycoL 3350 17 GM POWD.PACK PO (09:12)
--- NOTE | 2024-03-01 10:09 | HO.PSYCHPN ---
Subjective Subjective Date of Service: 03/01/24 Reason For Visit: Schizoaffective disorder, unspecified type Interim History: Pt slept through the night. He continues to report he has a mobile home here in parking lot that he explains won while watching the rush is right while here on the unit. He states that it was home audience and he heard the TV called his name. When asked about other messages from the TV, he denies. He denies SI/HI. He continues to report that sister are to blame for him being here. He takes medications intermittently. He is visible for some meals. attempting to go out the unit stating that he was going to his mobile home in the parking lot. Review of Systems Review of Systems Constipation improving Yes all other systems are reviewed and are negative and Unobtainable due to mental status Mental Status Exam Mental Status Exam Patient Appearance: Fatigued, Disheveled and Unkempt Patient Orientation: Person and Place Level of Consciousness: Drowsy Patient Behavior: Passive, Resistive to Care and Poor Eye Contact Mood Description: Withdrawn, Constricted and Flat Affect Description: Flat Patient Cognition Impaired: Yes Ability to Follow Directions: Poor Speech Pattern: Clear Diagnostics Vital Signs (24Hr): Vital Signs - 24 hr 02/29/24 20:00 03/01/24 05:34 03/01/24 08:00 Temperature 96.8 F 97.2 F Pulse Rate 75 64 Respiratory Rate 16 18 Blood Pressure 159/75 H 74/48 L 88/56 L Pulse Oximetry 98 97 Oxygen Delivery Method Room Air Room Air BMI result Body Mass Index 18.2 Labs 02/11/24 10:12 01/18/24 08:02 Imaging Radiology Impressions: ITS Impressions Chest X-Ray 11/14/23 15:16 IMPRESSION: No evidence of acute disease. No pulmonary mass, pneumonia or pleural effusion. Chest CT 12/21/23 14:32 IMPRESSION: 1. No focal infiltrate is seen. 2. A 4 mm noncalcified subpleural nodule is seen within the posterior segment of the right upper lobe. According to the UPDATED 2017 Fleischner Society recommendations, the advised follow-up imaging for solid nodules < 6 mm is: LOW RISK PATIENT: No routine follow-up. HIGH RISK PATIENT: Optional CT at 12 months. 3. There is no thoracic lymphadenopathy or pleural effusion. 4. There is a marked kyphoscoliosis. No acute or aggressive osseous lesion is seen. 5. There is mild cholelithiasis. Fleischner guidelines were followed. KUB X-Ray 01/17/24 10:57 IMPRESSION: Multiple prominent, distended air-filled loops of small and large bowel. [id number] amount of stool in the colon. Correlation with clinical exam recommended to determine further management including possible additional imaging with CT scan of the abdomen and pelvis if abdominal pathology is suspected. This study was presented today January 19, 2024 for interpretation. Stat results provided at this time as requested by referring provider. Medications Medications Current Medications Famotidine (Famotidine 20 Mg Tablet) 20 mg PO DAILY [facility] Last Admin: 03/01/24 09:11 Dose: 20 mg Loperamide HCl (Loperamide Hcl 2 Mg Capsule) 2 mg PO Q4H PRN PRN Reason: loose stools Last Admin: 01/13/24 15:22 Dose: 2 mg Magnesium Hydroxide (Milk Of Magnesia 30 Ml Oral.Susp) 30 ml PO BID PRN PRN Reason: Constipation Last Admin: 02/27/24 20:36 Dose: 30 ml Memantine (Memantine Hcl 5 Mg Tablet) 5 mg PO BID [facility] Last Admin: 03/01/24 09:11 Dose: 5 mg Midodrine (Midodrine Hcl 10 Mg Tablet) 10 mg PO TID@0600,1200,1800 [facility] Last Admin: 03/01/24 05:32 Dose: 10 mg Mirtazapine (Mirtazapine 7.5 Mg Tablet) 7.5 mg PO BEDTIME [facility] Last Admin: 02/29/24 20:39 Dose: 7.5 mg Modafinil (Modafinil 100 Mg Tablet) 100 mg PO DAILY [facility] Last Admin: 03/01/24 09:11 Dose: 100 mg Polyethylene Glycol (Polyethylene Glycol 3350 17 Gm Powd.Pack) 17 gm PO DAILY [facility] Last Admin: 03/01/24 09:12 Dose: 17 gm Risperidone (Risperidone 2 Mg Tablet) 2 mg PO BEDTIME [facility] Last Admin: 02/29/24 20:39 Dose: 2 mg Senna (Sennosides 8.6 Mg Tablet) 8.6 mg PO BEDTIME [facility] Last Admin: 02/29/24 20:39 Dose: 8.6 mg Vortioxetine (Vortioxetine Hydrobromide 5 Mg Tablet) 5 mg PO DAILY [facility] Last Admin: 03/01/24 09:11 Dose: 5 mg Allergies Allergies Allergy/AdvReac Type Severity Reaction Status Date / Time omeprazole Allergy Unknown Verified 10/30/23 00:09 Assessment & Plan Assessment & Plan (1) Schizophrenia: Status: Acute Code(s): F20.9 - Schizophrenia, unspecified (2) Failure to thrive in adult: Status: Acute Code(s): R62.7 - Adult failure to thrive Plan The patient is a 63-year-old male with a past history of schizophrenia who had been in and out of several facilities in the last year with severe hypoactive behavior, catatonic like symptoms and chronic noncompliance who needed to go for Section 7 and 8 for ECT. Even though that he had been treated with antipsychotics he remains still internally preoccupied. Plan 01/22/2024: No changes to current plan. Will add MiraLax 01/22: no changes 01/23 continue tx 01/24 continue tx. 01/25 continue tx 01/27 continue tx. 01/28: Continue current regimen and plans 01/29: Continue current regimen and plans. 01/30 continue tx. awaiting guardianship. 01/31 continue tx. 02/01 continue tx. 02/02 continue tx. 02/03 continue tx. 02/06 continue tx. 02/08: stable presentation. continue current mgmt. 02/09: no change 02/10: no change 02/11 continue same treatment 02/12 continue same treatment 02/13 continue tx. 02/14 continue tx. 02/15 continue tx 02/17 continue same treatment 02/18: appears slightly more wakeful and energetic than last time this technical document writer met with pt. continue current mgmt. 02/19: as per yesterday. 02/20 continue tx. 02/21 continue tx. 02/22 continue tx. 02/24 continue tx. 02/25 no change ? worsening- follow vs get labs if continues to refuse food/hydration 02/27 continue tx. 02/28 continue tx. Reason for continued inpatient stay Substantial Risk for: inability to function Time Spent With Patient Time: Total time managing care of this patient today ____ minutes.
--- NOTE | 2024-03-01 14:32 | MHC.CLN ---
F/U DIET=REGULAR, SAFETY TRAY. ENSURE TID PROVIDES 1050 KCALS, 60 G PROTEIN. PATIENT ACCEPTS SUPPLEMENT. INTAKE USUALLY BITES OF FOOD AND ACCEPTS ENSURE. REVIEW OF WEIGHT HX SHOWS WEIGHT OVERALL STABLE SINCE 11/03. CONTINUE CURRENT DIET, SUPPLEMENTS AND ENCOURAGE INTAKE ABLE. RD TO FOLLOW UP WEEKLY.
[2024-03-01 15:23] VITALS: BP 98/57
[2024-03-01 20:00] VITALS: BP 90/60; PULSE 88; RESP 18; TEMP 36.9; O2SAT 95
[2024-03-01] MEDS: risperiDONE 2 MG TABLET PO (20:58)
[2024-03-01] MEDS: Mirtazapine 7.5 MG TABLET PO (20:58)
[2024-03-01] MEDS: Sennosides 8.6 MG TABLET PO (20:59)
[2024-03-02] MEDS: Midodrine HCl 10 MG TABLET PO ×3 (05:51→17:31)
[2024-03-02 07:00] VITALS: BMI 17.7
[2024-03-02 08:00] VITALS: BP 104/72; PULSE 87; RESP 17; TEMP 36.3; O2SAT 95
[2024-03-02] MEDS: Vortioxetine Hydrobromide 5 MG TABLET PO (08:40)
[2024-03-02] MEDS: modafiniL 100 MG TABLET PO (08:40)
[2024-03-02] MEDS: Famotidine 20 MG TABLET PO (08:40)
[2024-03-02] MEDS: Memantine HCl 5 MG TABLET PO ×2 (08:40→20:01)
--- NOTE | 2024-03-02 10:50 | P.PNPSI_ITS ---
Subjective Subjective Date of Service: 03/02/24 Reason For Visit: Schizoaffective disorder, unspecified type Interim History: calm, cooperative. PMR, appears tired/fatigued. denies any problems, no requests or complaints. later seen up and about the unit. per staff, isolative, withdrawn. slept 8 hours. poor PO intake. Mental Status Exam Mental Status Exam Patient Appearance: Fatigued, Disheveled and Unkempt Patient Orientation: Person and Place Level of Consciousness: Drowsy Patient Behavior: Passive, Resistive to Care and Poor Eye Contact Mood Description: Withdrawn, Constricted and Flat Affect Description: Flat Patient Cognition Impaired: Yes Ability to Follow Directions: Poor Speech Pattern: Clear Diagnostics Vital Signs (24Hr): Vital Signs - 24 hr 03/01/24 15:23 03/01/24 20:00 03/02/24 08:00 Temperature 98.4 F 97.3 F Pulse Rate 88 87 Respiratory Rate 18 17 Blood Pressure 98/57 L 90/60 104/72 Pulse Oximetry 95 95 Oxygen Delivery Method Room Air Room Air BMI result Body Mass Index 18.2 Labs 02/11/24 10:12 01/18/24 08:02 Imaging Radiology Impressions: ITS Impressions Chest X-Ray 11/14/23 15:16 IMPRESSION: No evidence of acute disease. No pulmonary mass, pneumonia or pleural effusion. Chest CT 12/21/23 14:32 IMPRESSION: 1. No focal infiltrate is seen. 2. A 4 mm noncalcified subpleural nodule is seen within the posterior segment of the right upper lobe. According to the UPDATED 2017 Fleischner Society recommendations, the advised follow-up imaging for solid nodules < 6 mm is: LOW RISK PATIENT: No routine follow-up. HIGH RISK PATIENT: Optional CT at 12 months. 3. There is no thoracic lymphadenopathy or pleural effusion. 4. There is a marked kyphoscoliosis. No acute or aggressive osseous lesion is seen. 5. There is mild cholelithiasis. Fleischner guidelines were followed. KUB X-Ray 01/17/24 10:57 IMPRESSION: Multiple prominent, distended air-filled loops of small and large bowel. [id number]-[id number] amount of stool in the colon. Correlation with clinical exam recommended to determine further management including possible additional imaging with CT scan of the abdomen and pelvis if abdominal pathology is suspected. This study was presented today January 19, 2024 for interpretation. Stat results provided at this time as requested by referring provider. Medications Medications Current Medications Famotidine (Famotidine 20 Mg Tablet) 20 mg PO DAILY [facility] Last Admin: 03/02/24 08:40 Dose: 20 mg Loperamide HCl (Loperamide Hcl 2 Mg Capsule) 2 mg PO Q4H PRN PRN Reason: loose stools Last Admin: 01/13/24 15:22 Dose: 2 mg Magnesium Hydroxide (Milk Of Magnesia 30 Ml Oral.Susp) 30 ml PO BID PRN PRN Reason: Constipation Last Admin: 02/27/24 20:36 Dose: 30 ml Memantine (Memantine Hcl 5 Mg Tablet) 5 mg PO BID [facility] Last Admin: 03/02/24 08:40 Dose: 5 mg Midodrine (Midodrine Hcl 10 Mg Tablet) 10 mg PO TID@0600,1200,1800 [facility] Last Admin: 03/02/24 05:51 Dose: 10 mg Mirtazapine (Mirtazapine 7.5 Mg Tablet) 7.5 mg PO BEDTIME [facility] Last Admin: 03/01/24 20:58 Dose: 7.5 mg Modafinil (Modafinil 100 Mg Tablet) 100 mg PO DAILY [facility] Last Admin: 03/02/24 08:40 Dose: 100 mg Polyethylene Glycol (Polyethylene Glycol 3350 17 Gm Powd.Pack) 17 gm PO DAILY [facility] Last Admin: 03/02/24 08:47 Dose: Not Given Risperidone (Risperidone 2 Mg Tablet) 2 mg PO BEDTIME [facility] Last Admin: 03/01/24 20:58 Dose: 2 mg Senna (Sennosides 8.6 Mg Tablet) 8.6 mg PO BEDTIME [facility] Last Admin: 03/01/24 20:59 Dose: 8.6 mg Vortioxetine (Vortioxetine Hydrobromide 5 Mg Tablet) 5 mg PO DAILY [facility] Last Admin: 03/02/24 08:40 Dose: 5 mg Allergies Allergies Allergy/AdvReac Type Severity Reaction Status Date / Time omeprazole Allergy Unknown Verified 10/30/23 00:09 Assessment & Plan Assessment & Plan (1) Schizophrenia: Status: Acute Code(s): F20.9 - Schizophrenia, unspecified (2) Failure to thrive in adult: Status: Acute Code(s): R62.7 - Adult failure to thrive Plan The patient is a 63-year-old male with a past history of schizophrenia who had been in and out of several facilities in the last year with severe hypoactive behavior, catatonic like symptoms and chronic noncompliance who needed to go for Section 7 and 8 for ECT. Even though that he had been treated with antipsychotics he remains still internally preoccupied. Plan 01/22/2024: No changes to current plan. Will add MiraLax 01/22: no changes 01/23 continue tx 01/24 continue tx. 01/25 continue tx 01/27 continue tx. 01/28: Continue current regimen and plans 01/29: Continue current regimen and plans. 01/30 continue tx. awaiting guardianship. 01/31 continue tx. 02/01 continue tx. 02/02 continue tx. 02/03 continue tx. 02/06 continue tx. 02/08: stable presentation. continue current mgmt. 02/09: no change 02/10: no change 02/11 continue same treatment 02/12 continue same treatment 02/13 continue tx. 02/14 continue tx. 02/15 continue tx 02/17 continue same treatment 02/18: appears slightly more wakeful and energetic than last time this marine underwriter met with pt. continue current mgmt. 02/19: as per yesterday. 02/20 continue tx. 02/21 continue tx. 02/22 continue tx. 02/24 continue tx. 02/25 no change ? worsening- follow vs get labs if continues to refuse food/hydration 02/27 continue tx. 02/28 continue tx. 03/02: slowed, appears tired/fatigued. poor PO intake. continue current mgmt. Reason for continued inpatient stay Substantial Risk for: inability to function Time Spent With Patient Time: Total time managing care of this patient today ____ minutes.
[2024-03-02 12:00] VITALS: BP 93/64; PULSE 89
[2024-03-02 17:30] VITALS: BP 118/59; PULSE 95
[2024-03-02 20:00] VITALS: BP 100/64; PULSE 82; RESP 18; TEMP 36; O2SAT 97
[2024-03-02] MEDS: Mirtazapine 7.5 MG TABLET PO (20:01)
[2024-03-02] MEDS: risperiDONE 2 MG TABLET PO (20:01)
[2024-03-02] MEDS: Sennosides 8.6 MG TABLET PO (20:01)
[2024-03-03] MEDS: Midodrine HCl 10 MG TABLET PO ×3 (05:43→18:04)
--- NOTE | 2024-03-03 07:51 | HO.PSYCHPN ---
Subjective Subjective Date of Service: 03/03/24 Reason For Visit: Schizoaffective disorder, unspecified type Subjective Notes: Section 8 Interim History: Pt slept through the night. He was up earlier for breakfast, then went back to bed. He reports he feels fine but asks this telegraphic typewriter operator chief to let him sleep... He denies SI/HI. he also denies physical concerns. underlying ideas of having won mobile home, TV called his name still present. Review of Systems Review of Systems Constipation improving Yes all other systems are reviewed and are negative and Unobtainable due to mental status Mental Status Exam Mental Status Exam Patient Appearance: Fatigued, Disheveled and Unkempt Patient Orientation: Person and Place Level of Consciousness: Drowsy Patient Behavior: Passive, Resistive to Care and Poor Eye Contact Mood Description: Withdrawn, Constricted and Flat Affect Description: Flat Patient Cognition Impaired: Yes Ability to Follow Directions: Poor Speech Pattern: Clear Diagnostics Vital Signs (24Hr): Vital Signs - 24 hr 03/02/24 08:00 03/02/24 12:00 03/02/24 17:30 Temperature 97.3 F Pulse Rate 87 89 95 Respiratory Rate 17 Blood Pressure 104/72 93/64 118/59 L Pulse Oximetry 95 Oxygen Delivery Method Room Air 03/02/24 20:00 Temperature 96.8 F Pulse Rate 82 Respiratory Rate 18 Blood Pressure 100/64 Pulse Oximetry 97 Oxygen Delivery Method Room Air BMI result Body Mass Index 17.7 Labs 02/11/24 10:12 01/18/24 08:02 Imaging Radiology Impressions: ITS Impressions Chest X-Ray 11/14/23 15:16 IMPRESSION: No evidence of acute disease. No pulmonary mass, pneumonia or pleural effusion. Chest CT 12/21/23 14:32 IMPRESSION: 1. No focal infiltrate is seen. 2. A 4 mm noncalcified subpleural nodule is seen within the posterior segment of the right upper lobe. According to the UPDATED 2017 Fleischner Society recommendations, the advised follow-up imaging for solid nodules < 6 mm is: LOW RISK PATIENT: No routine follow-up. HIGH RISK PATIENT: Optional CT at 12 months. 3. There is no thoracic lymphadenopathy or pleural effusion. 4. There is a marked kyphoscoliosis. No acute or aggressive osseous lesion is seen. 5. There is mild cholelithiasis. Fleischner guidelines were followed. KUB X-Ray 01/17/24 10:57 IMPRESSION: Multiple prominent, distended air-filled loops of small and large bowel. [id number] amount of stool in the colon. Correlation with clinical exam recommended to determine further management including possible additional imaging with CT scan of the abdomen and pelvis if abdominal pathology is suspected. This study was presented today January 19, 2024 for interpretation. Stat results provided at this time as requested by referring provider. Medications Medications Current Medications Famotidine (Famotidine 20 Mg Tablet) 20 mg PO DAILY [facility] Last Admin: 03/02/24 08:40 Dose: 20 mg Loperamide HCl (Loperamide Hcl 2 Mg Capsule) 2 mg PO Q4H PRN PRN Reason: loose stools Last Admin: 01/13/24 15:22 Dose: 2 mg Magnesium Hydroxide (Milk Of Magnesia 30 Ml Oral.Susp) 30 ml PO BID PRN PRN Reason: Constipation Last Admin: 02/27/24 20:36 Dose: 30 ml Memantine (Memantine Hcl 5 Mg Tablet) 5 mg PO BID [facility] Last Admin: 03/02/24 20:01 Dose: 5 mg Midodrine (Midodrine Hcl 10 Mg Tablet) 10 mg PO TID@0600,1200,1800 [facility] Last Admin: 03/03/24 05:43 Dose: 10 mg Mirtazapine (Mirtazapine 7.5 Mg Tablet) 7.5 mg PO BEDTIME [facility] Last Admin: 03/02/24 20:01 Dose: 7.5 mg Modafinil (Modafinil 100 Mg Tablet) 100 mg PO DAILY [facility] Last Admin: 03/02/24 08:40 Dose: 100 mg Polyethylene Glycol (Polyethylene Glycol 3350 17 Gm Powd.Pack) 17 gm PO DAILY [facility] Last Admin: 03/02/24 08:47 Dose: Not Given Risperidone (Risperidone 2 Mg Tablet) 2 mg PO BEDTIME [facility] Last Admin: 03/02/24 20:01 Dose: 2 mg Senna (Sennosides 8.6 Mg Tablet) 8.6 mg PO BEDTIME YESY Last Admin: 03/02/24 20:01 Dose: 8.6 mg Vortioxetine (Vortioxetine Hydrobromide 5 Mg Tablet) 5 mg PO DAILY [facility] Last Admin: 03/02/24 08:40 Dose: 5 mg Allergies Allergies Allergy/AdvReac Type Severity Reaction Status Date / Time omeprazole Allergy Unknown Verified 10/30/23 00:09 Assessment & Plan Assessment & Plan (1) Schizophrenia: Status: Acute Code(s): F20.9 - Schizophrenia, unspecified (2) Failure to thrive in adult: Status: Acute Code(s): R62.7 - Adult failure to thrive Plan The patient is a 63-year-old male with a past history of schizophrenia who had been in and out of several facilities in the last year with severe hypoactive behavior, catatonic like symptoms and chronic noncompliance who needed to go for Section 7 and 8 for ECT. Even though that he had been treated with antipsychotics he remains still internally preoccupied. Plan 01/22/2024: No changes to current plan. Will add MiraLax 01/22: no changes 01/23 continue tx 01/24 continue tx. 01/25 continue tx 01/27 continue tx. 01/28: Continue current regimen and plans 01/29: Continue current regimen and plans. 01/30 continue tx. awaiting guardianship. 01/31 continue tx. 02/01 continue tx. 02/02 continue tx. 02/03 continue tx. 02/06 continue tx. 02/08: stable presentation. continue current mgmt. 02/09: no change 02/10: no change 02/11 continue same treatment 02/12 continue same treatment 02/13 continue tx. 02/14 continue tx. 02/15 continue tx 02/17 continue same treatment 02/18: appears slightly more wakeful and energetic than last time this telegraphic typewriter operator chief met with pt. continue current mgmt. 02/19: as per yesterday. 02/20 continue tx. 02/21 continue tx. 02/22 continue tx. 02/24 continue tx. 02/25 no change ? worsening- follow vs get labs if continues to refuse food/hydration 02/27 continue tx. 02/28 continue tx. 03/02: slowed, appears tired/fatigued. poor PO intake. continue current mgmt. 03/03 continue tx. Reason for continued inpatient stay Substantial Risk for: inability to function Time Spent With Patient Time: Total time managing care of this patient today ____ minutes.
[2024-03-03 08:00] VITALS: BP 84/58; PULSE 84; RESP 18; TEMP 36.8; O2SAT 96
[2024-03-03] MEDS: Vortioxetine Hydrobromide 5 MG TABLET PO (09:21)
[2024-03-03] MEDS: modafiniL 100 MG TABLET PO (09:21)
[2024-03-03] MEDS: Memantine HCl 5 MG TABLET PO ×2 (09:21→20:43)
[2024-03-03] MEDS: Famotidine 20 MG TABLET PO (09:21)
[2024-03-03 09:33] VITALS: BP 96/69; PULSE 90; RESP 18
--- NOTE | 2024-03-03 12:05 | PC.NURSE ---
BP 82/50, P 69 at 11:50 am. Midodrine given as ordered, fluids. No signs of distress. Roya Gar notified. Will continue to monitor.
[2024-03-03 18:00] VITALS: BP 91/62; PULSE 83; RESP 18
[2024-03-03 20:00] VITALS: BP 98/57; PULSE 51; RESP 18; TEMP 36.6; O2SAT 96
[2024-03-03] MEDS: risperiDONE 2 MG TABLET PO (20:43)
[2024-03-03] MEDS: Sennosides 8.6 MG TABLET PO (20:43)
[2024-03-03] MEDS: Mirtazapine 7.5 MG TABLET PO (20:43)
[2024-03-04] MEDS: Midodrine HCl 10 MG TABLET PO ×3 (05:58→17:02)
--- NOTE | 2024-03-04 09:09 | HO.PSYCHPN ---
Subjective Subjective Date of Service: 03/04/24 Reason For Visit: Schizoaffective disorder, unspecified type Interim History: Patient seen. He isolates in his room most of the time. Out of his room for meals. Flat but polite. No SI/AVH.Medication adherent. Review of Systems Review of Systems Constipation improving Yes all other systems are reviewed and are negative and Unobtainable due to mental status Mental Status Exam Mental Status Exam Narrative: In today's visit he is alert and minimally responsive. Soft-spoken speech. No eye contact. Affect is subdued. Appears depressed. No signs of psychosis. No SI. Cognitively he has slowed thought processes Patient Appearance: Fatigued, Disheveled and Unkempt Patient Orientation: Person and Place Level of Consciousness: Drowsy Patient Behavior: Passive, Resistive to Care and Poor Eye Contact Mood Description: Withdrawn, Constricted and Flat Affect Description: Flat Patient Cognition Impaired: Yes Ability to Follow Directions: Poor Speech Pattern: Clear Diagnostics Vital Signs (24Hr): Vital Signs - 24 hr 03/03/24 09:33 03/03/24 18:00 03/03/24 20:00 Temperature 97.8 F Pulse Rate 90 83 51 Respiratory Rate 18 18 18 Blood Pressure 96/69 91/62 98/57 L Pulse Oximetry 96 Oxygen Delivery Method Room Air BMI result Body Mass Index 17.7 Labs 02/11/24 10:12 01/18/24 08:02 Imaging Radiology Impressions: ITS Impressions Chest X-Ray 11/14/23 15:16 IMPRESSION: No evidence of acute disease. No pulmonary mass, pneumonia or pleural effusion. Chest CT 12/21/23 14:32 IMPRESSION: 1. No focal infiltrate is seen. 2. A 4 mm noncalcified subpleural nodule is seen within the posterior segment of the right upper lobe. According to the UPDATED 2017 Fleischner Society recommendations, the advised follow-up imaging for solid nodules < 6 mm is: LOW RISK PATIENT: No routine follow-up. HIGH RISK PATIENT: Optional CT at 12 months. 3. There is no thoracic lymphadenopathy or pleural effusion. 4. There is a marked kyphoscoliosis. No acute or aggressive osseous lesion is seen. 5. There is mild cholelithiasis. Fleischner guidelines were followed. KUB X-Ray 01/17/24 10:57 IMPRESSION: Multiple prominent, distended air-filled loops of small and large bowel. [id number] amount of stool in the colon. Correlation with clinical exam recommended to determine further management including possible additional imaging with CT scan of the abdomen and pelvis if abdominal pathology is suspected. This study was presented today January 19, 2024 for interpretation. Stat results provided at this time as requested by referring provider. Medications Medications Current Medications Famotidine (Famotidine 20 Mg Tablet) 20 mg PO DAILY [facility] Last Admin: 03/03/24 09:21 Dose: 20 mg Loperamide HCl (Loperamide Hcl 2 Mg Capsule) 2 mg PO Q4H PRN PRN Reason: loose stools Last Admin: 01/13/24 15:22 Dose: 2 mg Magnesium Hydroxide (Milk Of Magnesia 30 Ml Oral.Susp) 30 ml PO BID PRN PRN Reason: Constipation Last Admin: 02/27/24 20:36 Dose: 30 ml Memantine (Memantine Hcl 5 Mg Tablet) 5 mg PO BID [facility] Last Admin: 03/03/24 20:43 Dose: 5 mg Midodrine (Midodrine Hcl 10 Mg Tablet) 10 mg PO TID@0600,1200,1800 [facility] Last Admin: 03/04/24 05:58 Dose: 10 mg Mirtazapine (Mirtazapine 7.5 Mg Tablet) 7.5 mg PO BEDTIME YESY Last Admin: 03/03/24 20:43 Dose: 7.5 mg Modafinil (Modafinil 100 Mg Tablet) 100 mg PO DAILY [facility] Last Admin: 03/03/24 09:21 Dose: 100 mg Polyethylene Glycol (Polyethylene Glycol 3350 17 Gm Powd.Pack) 17 gm PO DAILY [facility] Last Admin: 03/03/24 09:25 Dose: Not Given Risperidone (Risperidone 2 Mg Tablet) 2 mg PO BEDTIME [facility] Last Admin: 03/03/24 20:43 Dose: 2 mg Senna (Sennosides 8.6 Mg Tablet) 8.6 mg PO BEDTIME [facility] Last Admin: 03/03/24 20:43 Dose: 8.6 mg Vortioxetine (Vortioxetine Hydrobromide 5 Mg Tablet) 5 mg PO DAILY [facility] Last Admin: 03/03/24 09:21 Dose: 5 mg Allergies Allergies Allergy/AdvReac Type Severity Reaction Status Date / Time omeprazole Allergy Unknown Verified 10/30/23 00:09 Assessment & Plan Assessment & Plan (1) Schizophrenia: Status: Acute Code(s): F20.9 - Schizophrenia, unspecified (2) Failure to thrive in adult: Status: Acute Code(s): R62.7 - Adult failure to thrive Plan The patient is a 63-year-old male with a past history of schizophrenia who had been in and out of several facilities in the last year with severe hypoactive behavior, catatonic like symptoms and chronic noncompliance who needed to go for Section 7 and 8 for ECT. Even though that he had been treated with antipsychotics he remains still internally preoccupied. Plan 01/22/2024: No changes to current plan. Will add MiraLax 01/22: no changes 01/23 continue tx 01/24 continue tx. 01/25 continue tx 01/27 continue tx. 01/28: Continue current regimen and plans 01/29: Continue current regimen and plans. 01/30 continue tx. awaiting guardianship. 01/31 continue tx. 02/01 continue tx. 02/02 continue tx. 02/03 continue tx. 02/06 continue tx. 02/08: stable presentation. continue current mgmt. 02/09: no change 02/10: no change 02/11 continue same treatment 02/12 continue same treatment 02/13 continue tx. 02/14 continue tx. 02/15 continue tx 02/17 continue same treatment 02/18: appears slightly more wakeful and energetic than last time this credit underwriter met with pt. continue current mgmt. 02/19: as per yesterday. 02/20 continue tx. 02/21 continue tx. 02/22 continue tx. 02/24 continue tx. 02/25 no change ? worsening- follow vs get labs if continues to refuse food/hydration 02/27 continue tx. 02/28 continue tx. 03/02: slowed, appears tired/fatigued. poor PO intake. continue current mgmt. 03/03 continue tx. 03/04: continue current management and treatment plan. Reason for continued inpatient stay Substantial Risk for: inability to function and rapid decompensation Time Spent With Patient Time: Total time managing care of this patient today ____ minutes.
[2024-03-04 09:16] VITALS: BP 106/73; PULSE 80; RESP 17; TEMP 36.1; O2SAT 98
[2024-03-04] MEDS: Memantine HCl 5 MG TABLET PO ×2 (09:17→20:14)
[2024-03-04] MEDS: modafiniL 100 MG TABLET PO (09:17)
[2024-03-04] MEDS: Vortioxetine Hydrobromide 5 MG TABLET PO (09:17)
[2024-03-04] MEDS: Famotidine 20 MG TABLET PO (09:17)
[2024-03-04 12:31] VITALS: BP 93/60
[2024-03-04 17:06] VITALS: BP 109/72
[2024-03-04 20:00] VITALS: BP 107/71; PULSE 74; RESP 16; TEMP 36.6; O2SAT 94
[2024-03-04] MEDS: Mirtazapine 7.5 MG TABLET PO (20:14)
[2024-03-04] MEDS: Sennosides 8.6 MG TABLET PO (20:15)
[2024-03-04] MEDS: risperiDONE 2 MG TABLET PO (20:15)
[2024-03-05] MEDS: Milk of Magnesia 30 ML ORAL.SUSP PO (00:29)
[2024-03-05] MEDS: Midodrine HCl 10 MG TABLET PO ×3 (05:56→17:27)
[2024-03-05 08:00] VITALS: BP 99/67; PULSE 85; RESP 16; TEMP 36.2; O2SAT 96
[2024-03-05] MEDS: Famotidine 20 MG TABLET PO (09:23)
[2024-03-05] MEDS: modafiniL 100 MG TABLET PO (09:23)
[2024-03-05] MEDS: Vortioxetine Hydrobromide 5 MG TABLET PO (09:23)
[2024-03-05] MEDS: Memantine HCl 5 MG TABLET PO ×2 (09:23→21:15)
--- NOTE | 2024-03-05 11:41 | HO.PSYCHPN ---
Subjective Subjective Date of Service: 03/05/24 Reason For Visit: Schizoaffective disorder, unspecified type Interim History: Patient seen. Had some loose stool. No other GI symptoms. Isolates in his room most of the time. Out of his room for meals. Flat but polite. No SI/AVH. Medication adherent. Review of Systems Review of Systems Constipation improving Yes all other systems are reviewed and are negative and Unobtainable due to mental status Mental Status Exam Mental Status Exam Narrative: In today's visit he is alert and minimally responsive. Soft-spoken speech. No eye contact. Affect is subdued. Appears depressed. No signs of psychosis. No SI. Cognitively he has slowed thought processes Patient Appearance: Fatigued, Disheveled and Unkempt Patient Orientation: Person and Place Level of Consciousness: Drowsy Patient Behavior: Passive, Resistive to Care and Poor Eye Contact Mood Description: Withdrawn, Constricted and Flat Affect Description: Flat Patient Cognition Impaired: Yes Ability to Follow Directions: Poor Speech Pattern: Clear Diagnostics Vital Signs (24Hr): Vital Signs - 24 hr 03/04/24 12:31 03/04/24 17:06 03/04/24 20:00 Temperature 97.8 F Pulse Rate 74 Respiratory Rate 16 Blood Pressure 93/60 109/72 107/71 Pulse Oximetry 94 Oxygen Delivery Method Room Air 03/05/24 08:00 Temperature 97.2 F Pulse Rate 85 Respiratory Rate 16 Blood Pressure 99/67 Pulse Oximetry 96 Oxygen Delivery Method Room Air BMI result Body Mass Index 17.7 Labs 02/11/24 10:12 01/18/24 08:02 Imaging Radiology Impressions: ITS Impressions Chest X-Ray 11/14/23 15:16 IMPRESSION: No evidence of acute disease. No pulmonary mass, pneumonia or pleural effusion. Chest CT 12/21/23 14:32 IMPRESSION: 1. No focal infiltrate is seen. 2. A 4 mm noncalcified subpleural nodule is seen within the posterior segment of the right upper lobe. According to the UPDATED 2017 Fleischner Society recommendations, the advised follow-up imaging for solid nodules < 6 mm is: LOW RISK PATIENT: No routine follow-up. HIGH RISK PATIENT: Optional CT at 12 months. 3. There is no thoracic lymphadenopathy or pleural effusion. 4. There is a marked kyphoscoliosis. No acute or aggressive osseous lesion is seen. 5. There is mild cholelithiasis. Fleischner guidelines were followed. KUB X-Ray 01/17/24 10:57 IMPRESSION: Multiple prominent, distended air-filled loops of small and large bowel. [id number] amount of stool in the colon. Correlation with clinical exam recommended to determine further management including possible additional imaging with CT scan of the abdomen and pelvis if abdominal pathology is suspected. This study was presented today January 19, 2024 for interpretation. Stat results provided at this time as requested by referring provider. Medications Medications Current Medications Famotidine (Famotidine 20 Mg Tablet) 20 mg PO DAILY [facility] Last Admin: 03/05/24 09:23 Dose: 20 mg Loperamide HCl (Loperamide Hcl 2 Mg Capsule) 2 mg PO Q4H PRN PRN Reason: loose stools Last Admin: 01/13/24 15:22 Dose: 2 mg Magnesium Hydroxide (Milk Of Magnesia 30 Ml Oral.Susp) 30 ml PO BID PRN PRN Reason: Constipation Last Admin: 03/05/24 00:29 Dose: 30 ml Memantine (Memantine Hcl 5 Mg Tablet) 5 mg PO BID [facility] Last Admin: 03/05/24 09:23 Dose: 5 mg Midodrine (Midodrine Hcl 10 Mg Tablet) 10 mg PO TID@0600,1200,1800 [facility] Last Admin: 03/05/24 05:56 Dose: 10 mg Mirtazapine (Mirtazapine 7.5 Mg Tablet) 7.5 mg PO BEDTIME [facility] Last Admin: 03/04/24 20:14 Dose: 7.5 mg Modafinil (Modafinil 100 Mg Tablet) 100 mg PO DAILY [facility] Last Admin: 03/05/24 09:23 Dose: 100 mg Polyethylene Glycol (Polyethylene Glycol 3350 17 Gm Powd.Pack) 17 gm PO DAILY [facility] Last Admin: 03/05/24 09:26 Dose: Not Given Risperidone (Risperidone 2 Mg Tablet) 2 mg PO BEDTIME [facility] Last Admin: 03/04/24 20:15 Dose: 2 mg Senna (Sennosides 8.6 Mg Tablet) 8.6 mg PO BEDTIME [facility] Last Admin: 03/04/24 20:15 Dose: 8.6 mg Vortioxetine (Vortioxetine Hydrobromide 5 Mg Tablet) 5 mg PO DAILY [facility] Last Admin: 03/05/24 09:23 Dose: 5 mg Allergies Allergies Allergy/AdvReac Type Severity Reaction Status Date / Time omeprazole Allergy Unknown Verified 10/30/23 00:09 Assessment & Plan Assessment & Plan (1) Schizophrenia: Status: Acute Code(s): F20.9 - Schizophrenia, unspecified (2) Failure to thrive in adult: Status: Acute Code(s): R62.7 - Adult failure to thrive Plan The patient is a 63-year-old male with a past history of schizophrenia who had been in and out of several facilities in the last year with severe hypoactive behavior, catatonic like symptoms and chronic noncompliance who needed to go for Section 7 and 8 for ECT. Even though that he had been treated with antipsychotics he remains still internally preoccupied. Plan 01/22/2024: No changes to current plan. Will add MiraLax 01/22: no changes 01/23 continue tx 01/24 continue tx. 01/25 continue tx 01/27 continue tx. 01/28: Continue current regimen and plans 01/29: Continue current regimen and plans. 01/30 continue tx. awaiting guardianship. 01/31 continue tx. 02/01 continue tx. 02/02 continue tx. 02/03 continue tx. 02/06 continue tx. 02/08: stable presentation. continue current mgmt. 02/09: no change 02/10: no change 02/11 continue same treatment 02/12 continue same treatment 02/13 continue tx. 02/14 continue tx. 02/15 continue tx 02/17 continue same treatment 02/18: appears slightly more wakeful and energetic than last time this racebook writer met with pt. continue current mgmt. 02/19: as per yesterday. 02/20 continue tx. 02/21 continue tx. 02/22 continue tx. 02/24 continue tx. 02/25 no change ? worsening- follow vs get labs if continues to refuse food/hydration 02/27 continue tx. 02/28 continue tx. 03/02: slowed, appears tired/fatigued. poor PO intake. continue current mgmt. 03/03 continue tx. 03/04: continue current management and treatment plan. 03/05: Continue current management and treatment plan. Reason for continued inpatient stay Substantial Risk for: inability to function and rapid decompensation Time Spent With Patient Time: Total time managing care of this patient today ____ minutes.
[2024-03-05 17:26] VITALS: BP 98/65; PULSE 90
[2024-03-05 20:00] VITALS: BP 96/64; PULSE 91; RESP 16; TEMP 37.1; O2SAT 95
[2024-03-05] MEDS: Mirtazapine 7.5 MG TABLET PO (21:15)
[2024-03-05] MEDS: Sennosides 8.6 MG TABLET PO (21:15)
[2024-03-05] MEDS: risperiDONE 2 MG TABLET PO (21:15)
[2024-03-06 08:52] VITALS: BP 84/58; PULSE 96; RESP 16; TEMP 36.2; O2SAT 92
[2024-03-06] MEDS: Memantine HCl 5 MG TABLET PO ×2 (08:55→20:46)
[2024-03-06] MEDS: Midodrine HCl 10 MG TABLET PO ×3 (08:56→17:45)
[2024-03-06] MEDS: Vortioxetine Hydrobromide 5 MG TABLET PO (08:56)
[2024-03-06] MEDS: modafiniL 100 MG TABLET PO (08:56)
[2024-03-06] MEDS: Famotidine 20 MG TABLET PO (08:56)
[2024-03-06 11:36] VITALS: BP 78/49; PULSE 68
--- NOTE | 2024-03-06 16:29 | P.PNPSI_ITS ---
Subjective Subjective Date of Service: 03/06/24 Reason For Visit: Schizoaffective disorder, unspecified type Interim History: Patient seen. Mostly isolates in his room. No behavioral concerns. Appetite decreased but takes supplements. Out of his room for meals and snacks. Flat but polite. No SI/AVH. Medication adherent. Review of Systems Review of Systems Constipation improving Yes all other systems are reviewed and are negative and Unobtainable due to mental status Mental Status Exam Mental Status Exam Narrative: In today's visit he is alert and minimally responsive. Soft-spoken speech. No eye contact. Affect is subdued. Appears depressed. No signs of psychosis. No SI. Cognitively he has slowed thought processes Patient Appearance: Fatigued, Disheveled and Unkempt Patient Orientation: Person and Place Level of Consciousness: Drowsy Patient Behavior: Passive, Resistive to Care and Poor Eye Contact Mood Description: Withdrawn, Constricted and Flat Affect Description: Flat Patient Cognition Impaired: Yes Ability to Follow Directions: Poor Speech Pattern: Clear Diagnostics Vital Signs (24Hr): Vital Signs - 24 hr 03/05/24 17:26 03/05/24 20:00 03/06/24 08:52 Temperature 98.8 F 97.1 F Pulse Rate 90 91 96 Respiratory Rate 16 16 Blood Pressure 98/65 96/64 84/58 L Pulse Oximetry 95 92 Oxygen Delivery Method Room Air Room Air 03/06/24 11:36 Temperature Pulse Rate 68 Respiratory Rate Blood Pressure 78/49 L Pulse Oximetry Oxygen Delivery Method BMI result Body Mass Index 17.7 Labs 02/11/24 10:12 01/18/24 08:02 Imaging Radiology Impressions: ITS Impressions Chest X-Ray 11/14/23 15:16 IMPRESSION: No evidence of acute disease. No pulmonary mass, pneumonia or pleural effusion. Chest CT 12/21/23 14:32 IMPRESSION: 1. No focal infiltrate is seen. 2. A 4 mm noncalcified subpleural nodule is seen within the posterior segment of the right upper lobe. According to the UPDATED 2017 Fleischner Society recommendations, the advised follow-up imaging for solid nodules < 6 mm is: LOW RISK PATIENT: No routine follow-up. HIGH RISK PATIENT: Optional CT at 12 months. 3. There is no thoracic lymphadenopathy or pleural effusion. 4. There is a marked kyphoscoliosis. No acute or aggressive osseous lesion is seen. 5. There is mild cholelithiasis. Fleischner guidelines were followed. KUB X-Ray 01/17/24 10:57 IMPRESSION: Multiple prominent, distended air-filled loops of small and large bowel. [id number] amount of stool in the colon. Correlation with clinical exam recommended to determine further management including possible additional imaging with CT scan of the abdomen and pelvis if abdominal pathology is suspected. This study was presented today January 19, 2024 for interpretation. Stat results provided at this time as requested by referring provider. Medications Medications Current Medications Famotidine (Famotidine 20 Mg Tablet) 20 mg PO DAILY [facility] Last Admin: 03/06/24 08:56 Dose: 20 mg Loperamide HCl (Loperamide Hcl 2 Mg Capsule) 2 mg PO Q4H PRN PRN Reason: loose stools Last Admin: 01/13/24 15:22 Dose: 2 mg Magnesium Hydroxide (Milk Of Magnesia 30 Ml Oral.Susp) 30 ml PO BID PRN PRN Reason: Constipation Last Admin: 03/05/24 00:29 Dose: 30 ml Memantine (Memantine Hcl 5 Mg Tablet) 5 mg PO BID [facility] Last Admin: 03/06/24 08:55 Dose: 5 mg Midodrine (Midodrine Hcl 10 Mg Tablet) 10 mg PO TID@0600,1200,1800 [facility] Last Admin: 03/06/24 11:49 Dose: 10 mg Mirtazapine (Mirtazapine 7.5 Mg Tablet) 7.5 mg PO BEDTIME [facility] Last Admin: 03/05/24 21:15 Dose: 7.5 mg Modafinil (Modafinil 100 Mg Tablet) 100 mg PO DAILY [facility] Last Admin: 03/06/24 08:56 Dose: 100 mg Polyethylene Glycol (Polyethylene Glycol 3350 17 Gm Powd.Pack) 17 gm PO DAILY [facility] Last Admin: 03/06/24 08:57 Dose: Not Given Risperidone (Risperidone 2 Mg Tablet) 2 mg PO BEDTIME [facility] Last Admin: 03/05/24 21:15 Dose: 2 mg Senna (Sennosides 8.6 Mg Tablet) 8.6 mg PO BEDTIME [facility] Last Admin: 03/05/24 21:15 Dose: 8.6 mg Vortioxetine (Vortioxetine Hydrobromide 5 Mg Tablet) 5 mg PO DAILY [facility] Last Admin: 03/06/24 08:56 Dose: 5 mg Allergies Allergies Allergy/AdvReac Type Severity Reaction Status Date / Time omeprazole Allergy Unknown Verified 10/30/23 00:09 Assessment & Plan Assessment & Plan (1) Schizophrenia: Status: Acute Code(s): F20.9 - Schizophrenia, unspecified (2) Failure to thrive in adult: Status: Acute Code(s): R62.7 - Adult failure to thrive Plan The patient is a 63-year-old male with a past history of schizophrenia who had been in and out of several facilities in the last year with severe hypoactive behavior, catatonic like symptoms and chronic noncompliance who needed to go for [facility] 8 for ECT. Even though that he had been treated with antipsychotics he remains still internally preoccupied. Plan 01/22/2024: No changes to current plan. Will add MiraLax 01/22: no changes 01/23 continue tx 01/24 continue tx. 01/25 continue tx 01/27 continue tx. 01/28: Continue current regimen and plans 01/29: Continue current regimen and plans. 01/30 continue tx. awaiting guardianship. 01/31 continue tx. 02/01 continue tx. 02/02 continue tx. 02/03 continue tx. 02/06 continue tx. 02/08: stable presentation. continue current mgmt. 02/09: no change 02/10: no change 02/11 continue same treatment 02/12 continue same treatment 02/13 continue tx. 02/14 continue tx. 02/15 continue tx 02/17 continue same treatment 02/18: appears slightly more wakeful and energetic than last time this insurance underwriter sales met with pt. continue current mgmt. 02/19: as per yesterday. 02/20 continue tx. 02/21 continue tx. 02/22 continue tx. 02/24 continue tx. 02/25 no change ? worsening- follow vs get labs if continues to refuse food/hydration 02/27 continue tx. 02/28 continue tx. 03/02: slowed, appears tired/fatigued. poor PO intake. continue current mgmt. 03/03 continue tx. 03/04: continue current management and treatment plan. 03/05: Continue current management and treatment plan. 03/06: Continue current management and treatment plan. Reason for continued inpatient stay Substantial Risk for: inability to function, rapid decompensation and med/psych decompensation Time Spent With Patient Time: Total time managing care of this patient today ____ minutes.
[2024-03-06 17:42] VITALS: BP 102/65; PULSE 77
--- NOTE | 2024-03-06 17:56 | PC.NURSE ---
B/P low today before Midodrine, 84/58, 78/49 and 102/65. B/P better when sitting up.
[2024-03-06 20:00] VITALS: BP 101/59; PULSE 57; RESP 16; TEMP 36.6; O2SAT 94
[2024-03-06] MEDS: Sennosides 8.6 MG TABLET PO (20:46)
[2024-03-06] MEDS: Mirtazapine 7.5 MG TABLET PO (20:46)
[2024-03-06] MEDS: risperiDONE 2 MG TABLET PO (20:46)
[2024-03-07] MEDS: Midodrine HCl 10 MG TABLET PO ×3 (06:31→18:06)
[2024-03-07 08:00] VITALS: BP 81/65; PULSE 86; RESP 18; TEMP 36.3; O2SAT 97
--- NOTE | 2024-03-07 09:17 | P.PNPSI_ITS ---
Subjective Subjective Date of Service: 03/07/24 Reason For Visit: Schizoaffective disorder, unspecified type Subjective Notes: Section 8 Interim History: Pt slept most of the night. BP on low end even at times with midodrine, encouraged to take fluids. He is mostly in bed, goes out at times for meals. pending guardianship paperwork, to start placement referrals. Review of Systems Review of Systems Constipation improving Yes all other systems are reviewed and are negative and Unobtainable due to mental status Mental Status Exam Mental Status Exam Patient Appearance: Fatigued, Disheveled and Unkempt Patient Orientation: Person and Place Level of Consciousness: Drowsy Patient Behavior: Passive, Resistive to Care and Poor Eye Contact Mood Description: Withdrawn, Constricted and Flat Affect Description: Flat Patient Cognition Impaired: Yes Ability to Follow Directions: Poor Speech Pattern: Clear Diagnostics Vital Signs (24Hr): Vital Signs - 24 hr 03/06/24 11:36 03/06/24 17:42 03/06/24 20:00 Temperature 97.9 F Pulse Rate 68 77 57 Respiratory Rate 16 Blood Pressure 78/49 L 102/65 101/59 L Pulse Oximetry 94 Oxygen Delivery Method Room Air 03/07/24 08:00 Temperature 97.3 F Pulse Rate 86 Respiratory Rate 18 Blood Pressure 81/65 L Pulse Oximetry 97 Oxygen Delivery Method Room Air BMI result Body Mass Index 17.7 Labs 02/11/24 10:12 01/18/24 08:02 Imaging Radiology Impressions: ITS Impressions Chest X-Ray 11/14/23 15:16 IMPRESSION: No evidence of acute disease. No pulmonary mass, pneumonia or pleural effusion. Chest CT 12/21/23 14:32 IMPRESSION: 1. No focal infiltrate is seen. 2. A 4 mm noncalcified subpleural nodule is seen within the posterior segment of the right upper lobe. According to the UPDATED 2017 Fleischner Society recommendations, the advised follow-up imaging for solid nodules < 6 mm is: LOW RISK PATIENT: No routine follow-up. HIGH RISK PATIENT: Optional CT at 12 months. 3. There is no thoracic lymphadenopathy or pleural effusion. 4. There is a marked kyphoscoliosis. No acute or aggressive osseous lesion is seen. 5. There is mild cholelithiasis. Fleischner guidelines were followed. KUB X-Ray 01/17/24 10:57 IMPRESSION: Multiple prominent, distended air-filled loops of small and large bowel. [id number] amount of stool in the colon. Correlation with clinical exam recommended to determine further management including possible additional imaging with CT scan of the abdomen and pelvis if abdominal pathology is suspected. This study was presented today January 19, 2024 for interpretation. Stat results provided at this time as requested by referring provider. Medications Medications Current Medications Famotidine (Famotidine 20 Mg Tablet) 20 mg PO DAILY [facility] Last Admin: 03/06/24 08:56 Dose: 20 mg Loperamide HCl (Loperamide Hcl 2 Mg Capsule) 2 mg PO Q4H PRN PRN Reason: loose stools Last Admin: 01/13/24 15:22 Dose: 2 mg Magnesium Hydroxide (Milk Of Magnesia 30 Ml Oral.Susp) 30 ml PO BID PRN PRN Reason: Constipation Last Admin: 03/05/24 00:29 Dose: 30 ml Memantine (Memantine Hcl 5 Mg Tablet) 5 mg PO BID [facility] Last Admin: 03/06/24 20:46 Dose: 5 mg Midodrine (Midodrine Hcl 10 Mg Tablet) 10 mg PO TID@0600,1200,1800 [facility] Last Admin: 03/07/24 06:31 Dose: 10 mg Mirtazapine (Mirtazapine 7.5 Mg Tablet) 7.5 mg PO BEDTIME [facility] Last Admin: 03/06/24 20:46 Dose: 7.5 mg Modafinil (Modafinil 100 Mg Tablet) 100 mg PO DAILY [facility] Last Admin: 03/06/24 08:56 Dose: 100 mg Polyethylene Glycol (Polyethylene Glycol 3350 17 Gm Powd.Pack) 17 gm PO DAILY [facility] Last Admin: 03/06/24 08:57 Dose: Not Given Risperidone (Risperidone 2 Mg Tablet) 2 mg PO BEDTIME [facility] Last Admin: 03/06/24 20:46 Dose: 2 mg Senna (Sennosides 8.6 Mg Tablet) 8.6 mg PO BEDTIME [facility] Last Admin: 03/06/24 20:46 Dose: 8.6 mg Vortioxetine (Vortioxetine Hydrobromide 5 Mg Tablet) 5 mg PO DAILY [facility] Last Admin: 03/06/24 08:56 Dose: 5 mg Allergies Allergies Allergy/AdvReac Type Severity Reaction Status Date / Time omeprazole Allergy Unknown Verified 10/30/23 00:09 Assessment & Plan Assessment & Plan (1) Schizophrenia: Status: Acute Code(s): F20.9 - Schizophrenia, unspecified (2) Failure to thrive in adult: Status: Acute Code(s): R62.7 - Adult failure to thrive Plan The patient is a 63-year-old male with a past history of schizophrenia who had been in and out of several facilities in the last year with severe hypoactive behavior, catatonic like symptoms and chronic noncompliance who needed to go for [facility] 7 [facility] 8 for ECT. Even though that he had been treated with antipsychotics he remains still internally preoccupied. Plan 01/22/2024: No changes to current plan. Will add MiraLax 01/22: no changes 01/23 continue tx 01/24 continue tx. 01/25 continue tx 01/27 continue tx. 01/28: Continue current regimen and plans 01/29: Continue current regimen and plans. 01/30 continue tx. awaiting guardianship. 01/31 continue tx. 02/01 continue tx. 02/02 continue tx. 02/03 continue tx. 02/06 continue tx. 02/08: stable presentation. continue current mgmt. 02/09: no change 02/10: no change 02/11 continue same treatment 02/12 continue same treatment 02/13 continue tx. 02/14 continue tx. 02/15 continue tx 02/17 continue same treatment 02/18: appears slightly more wakeful and energetic than last time this science writer met with pt. continue current mgmt. 02/19: as per yesterday. 02/20 continue tx. 02/21 continue tx. 02/22 continue tx. 02/24 continue tx. 02/25 no change ? worsening- follow vs get labs if continues to refuse food/hydration 02/27 continue tx. 02/28 continue tx. 03/02: slowed, appears tired/fatigued. poor PO intake. continue current mgmt. 03/03 continue tx. 03/04: continue current management and treatment plan. 03/05: Continue current management and treatment plan. 03/06: Continue current management and treatment plan. 03/07 continue tx. Reason for continued inpatient stay Substantial Risk for: inability to function Time Spent With Patient Time: Total time managing care of this patient today ____ minutes.
[2024-03-07] MEDS: Famotidine 20 MG TABLET PO (09:35)
[2024-03-07] MEDS: Memantine HCl 5 MG TABLET PO ×2 (09:35→20:45)
[2024-03-07] MEDS: Vortioxetine Hydrobromide 5 MG TABLET PO (09:35)
[2024-03-07] MEDS: modafiniL 100 MG TABLET PO (09:35)
[2024-03-07 09:45] VITALS: BP 93/70; PULSE 82; RESP 18
--- NOTE | 2024-03-07 09:53 | PC.NURSE ---
BP 81/65, p 86 at 8am. Pt feeling tired and cold, wants to sleep. Poor po intake. Provider Isabela notified. Re-check at 9:45 am after drinking chocolate milk for BP 93/70, P 82, R 18. Pt resting in bed, covered with two blankets. No signs of distress noted. Will continue to monitor.
[2024-03-07 20:00] VITALS: BP 100/65; PULSE 79; RESP 18; TEMP 37.1; O2SAT 96
[2024-03-07] MEDS: Sennosides 8.6 MG TABLET PO (20:45)
[2024-03-07] MEDS: risperiDONE 2 MG TABLET PO (20:45)
[2024-03-07] MEDS: Mirtazapine 7.5 MG TABLET PO (20:45)
[2024-03-08] MEDS: Midodrine HCl 10 MG TABLET PO ×3 (06:48→17:22)
[2024-03-08 09:00] VITALS: BP 87/64; PULSE 67; RESP 18; TEMP 37.1; O2SAT 95
[2024-03-08] MEDS: Famotidine 20 MG TABLET PO (09:04)
[2024-03-08] MEDS: Memantine HCl 5 MG TABLET PO ×2 (09:04→21:02)
[2024-03-08] MEDS: Vortioxetine Hydrobromide 5 MG TABLET PO (09:04)
[2024-03-08] MEDS: modafiniL 100 MG TABLET PO (09:04)
--- NOTE | 2024-03-08 09:09 | PC.NURSE ---
Blood pressure 87/64 and Darryl is asymptomatic. He declined breakfast but drank an Ensure. Roya Condon NP notified of blood pressure.
[2024-03-08 11:39] VITALS: BP 98/69
--- NOTE | 2024-03-08 14:11 | MHC.CLN ---
F/U DIET=REGULAR, SAFETY TRAY. ENSURE TID PROVIDES 1050 KCALS, 60 G PROTEIN. PATIENT ACCEPTS SUPPLEMENT. INTAKE USUALLY BITES OF FOOD AND ACCEPTS ENSURE. SOME MEALS >50%. CONTINUE CURRENT DIET, SUPPLEMENTS AND ENCOURAGE INTAKE ABLE. RD TO FOLLOW UP WEEKLY.
--- NOTE | 2024-03-08 15:11 | P.PNPSI_ITS ---
Subjective Subjective Date of Service: 03/08/24 Reason For Visit: Schizoaffective disorder, unspecified type Interim History: Pt slept most of the night. BP on low end even at times with midodrine, encouraged to take fluids. He is mostly in bed, goes out at times for meals. pending guardianship paperwork, to start placement referrals. Review of Systems Review of Systems Constipation improving Yes all other systems are reviewed and are negative and Unobtainable due to mental status Mental Status Exam Mental Status Exam Patient Appearance: Fatigued, Disheveled and Unkempt Patient Orientation: Person and Place Level of Consciousness: Drowsy Patient Behavior: Passive, Resistive to Care and Poor Eye Contact Mood Description: Withdrawn, Constricted and Flat Affect Description: Flat Patient Cognition Impaired: Yes Ability to Follow Directions: Poor Speech Pattern: Clear Diagnostics Vital Signs (24Hr): Vital Signs - 24 hr 03/07/24 20:00 03/08/24 09:00 03/08/24 11:39 Temperature 98.8 F 98.8 F Pulse Rate 79 67 Respiratory Rate 18 18 Blood Pressure 100/65 87/64 L 98/69 Pulse Oximetry 96 95 Oxygen Delivery Method Room Air Room Air BMI result Body Mass Index 17.7 Labs 03/09/24 10:51 03/09/24 10:51 Imaging Radiology Impressions: ITS Impressions Chest X-Ray 11/14/23 15:16 IMPRESSION: No evidence of acute disease. No pulmonary mass, pneumonia or pleural effusion. Chest CT 12/21/23 14:32 IMPRESSION: 1. No focal infiltrate is seen. 2. A 4 mm noncalcified subpleural nodule is seen within the posterior segment of the right upper lobe. According to the UPDATED 2017 Fleischner Society recommendations, the advised follow-up imaging for solid nodules < 6 mm is: LOW RISK PATIENT: No routine follow-up. HIGH RISK PATIENT: Optional CT at 12 months. 3. There is no thoracic lymphadenopathy or pleural effusion. 4. There is a marked kyphoscoliosis. No acute or aggressive osseous lesion is seen. 5. There is mild cholelithiasis. Fleischner guidelines were followed. KUB X-Ray 01/17/24 10:57 IMPRESSION: Multiple prominent, distended air-filled loops of small and large bowel. [id number] amount of stool in the colon. Correlation with clinical exam recommended to determine further management including possible additional imaging with CT scan of the abdomen and pelvis if abdominal pathology is suspected. This study was presented today January 19, 2024 for interpretation. Stat results provided at this time as requested by referring provider. Medications Medications Current Medications Famotidine (Famotidine 20 Mg Tablet) 20 mg PO DAILY [facility] Last Admin: 03/08/24 09:04 Dose: 20 mg Loperamide HCl (Loperamide Hcl 2 Mg Capsule) 2 mg PO Q4H PRN PRN Reason: loose stools Last Admin: 01/13/24 15:22 Dose: 2 mg Magnesium Hydroxide (Milk Of Magnesia 30 Ml Oral.Susp) 30 ml PO BID PRN PRN Reason: Constipation Last Admin: 03/05/24 00:29 Dose: 30 ml Memantine (Memantine Hcl 5 Mg Tablet) 5 mg PO BID [facility] Last Admin: 03/08/24 09:04 Dose: 5 mg Midodrine (Midodrine Hcl 10 Mg Tablet) 10 mg PO TID@0600,1200,1800 [facility] Last Admin: 03/08/24 11:41 Dose: 10 mg Mirtazapine (Mirtazapine 7.5 Mg Tablet) 7.5 mg PO BEDTIME [facility] Last Admin: 03/07/24 20:45 Dose: 7.5 mg Modafinil (Modafinil 100 Mg Tablet) 100 mg PO DAILY [facility] Last Admin: 03/08/24 09:04 Dose: 100 mg Polyethylene Glycol (Polyethylene Glycol 3350 17 Gm Powd.Pack) 17 gm PO DAILY [facility] Last Admin: 03/08/24 09:05 Dose: Not Given Risperidone (Risperidone 2 Mg Tablet) 2 mg PO BEDTIME [facility] Last Admin: 03/07/24 20:45 Dose: 2 mg Senna (Sennosides 8.6 Mg Tablet) 8.6 mg PO BEDTIME [facility] Last Admin: 03/07/24 20:45 Dose: 8.6 mg Vortioxetine (Vortioxetine Hydrobromide 5 Mg Tablet) 5 mg PO DAILY [facility] Last Admin: 03/08/24 09:04 Dose: 5 mg Allergies Allergies Allergy/AdvReac Type Severity Reaction Status Date / Time omeprazole Allergy Unknown Verified 10/30/23 00:09 Assessment & Plan Assessment & Plan (1) Schizophrenia: Status: Acute Code(s): F20.9 - Schizophrenia, unspecified (2) Failure to thrive in adult: Status: Acute Code(s): R62.7 - Adult failure to thrive Plan The patient is a 63-year-old male with a past history of schizophrenia who had been in and out of several facilities in the last year with severe hypoactive behavior, catatonic like symptoms and chronic noncompliance who needed to go for [facility] 7 and 8 for ECT. Even though that he had been treated with antipsychotics he remains still internally preoccupied. Plan 01/22/2024: No changes to current plan. Will add MiraLax 01/22: no changes 01/23 continue tx 01/24 continue tx. 01/25 continue tx 01/27 continue tx. 01/28: Continue current regimen and plans 01/29: Continue current regimen and plans. 01/30 continue tx. awaiting guardianship. 01/31 continue tx. 02/01 continue tx. 02/02 continue tx. 02/03 continue tx. 02/06 continue tx. 02/08: stable presentation. continue current mgmt. 02/09: no change 02/10: no change 02/11 continue same treatment 02/12 continue same treatment 02/13 continue tx. 02/14 continue tx. 02/15 continue tx 02/17 continue same treatment 02/18: appears slightly more wakeful and energetic than last time this grant writer met with pt. continue current mgmt. 02/19: as per yesterday. 02/20 continue tx. 02/21 continue tx. 02/22 continue tx. 02/24 continue tx. 02/25 no change ? worsening- follow vs get labs if continues to refuse food/hydration 02/27 continue tx. 02/28 continue tx. 03/02: slowed, appears tired/fatigued. poor PO intake. continue current mgmt. 03/03 continue tx. 03/04: continue current management and treatment plan. 03/05: Continue current management and treatment plan. 03/06: Continue current management and treatment plan. 03/07 continue tx. Reason for continued inpatient stay Substantial Risk for: inability to function Time Spent With Patient Time: Total time managing care of this patient today ____ minutes.
[2024-03-08 17:16] VITALS: BP 114/74
[2024-03-08 20:00] VITALS: BP 90/57; PULSE 74; RESP 16; TEMP 37.6; O2SAT 94
[2024-03-08] MEDS: Mirtazapine 7.5 MG TABLET PO (21:01)
[2024-03-08] MEDS: risperiDONE 2 MG TABLET PO (21:02)
[2024-03-09] MEDS: Midodrine HCl 10 MG TABLET PO ×3 (05:59→18:08)
[2024-03-09 08:00] VITALS: BP 97/63; PULSE 76; RESP 18; TEMP 2.7; TEMP 36.9; O2SAT 96
[2024-03-09] MEDS: Memantine HCl 5 MG TABLET PO ×2 (08:58→20:35)
[2024-03-09] MEDS: polyethylene glycoL 3350 17 GM POWD.PACK PO (08:58)
[2024-03-09] MEDS: Famotidine 20 MG TABLET PO (08:59)
[2024-03-09] MEDS: modafiniL 100 MG TABLET PO (08:59)
[2024-03-09] MEDS: Vortioxetine Hydrobromide 5 MG TABLET PO (08:59)
[2024-03-09 11:02] LABS: MANUAL DIFF FLAG NO
[2024-03-09 11:03] VITALS: BMI 17.6
[2024-03-09 11:06] LABS: Eosinophils Percent Auto 0.4 % (0-4); Hematocrit 38.1 % (42.0-52.0); Hemoglobin 13.9 g/dl (14.0-18.0); Imm Gran Abs Auto 0.01 X10*3/uL (0.00-0.03); Imm Gran Pct Auto 0.2 % (0.0-0.4); Lymphocytes Absolute Auto 1.4 X10*3/uL (1.2-4.9); Lymphocytes Percent Auto 25.3 % (20-40); Mean Corpuscular HGB Conc 36.5 g/dl (31.0-36.0); Mean Corpuscular Hemoglobin 35.8 pg (27.0-33.0); Mean Corpuscular Volume 98.2 fL (80.0-98.0); Mean Platelet Volume 10.7 fL (9.4-12.4); Monocytes Absolute Auto 0.7 X10*3/uL (0.1-1.2); Monocytes Percent Auto 12.4 % (2-11); Neutrophils Absolute Auto 3.4 x10*3/uL (2.0-8.3); Neutrophils Percent Auto 61.7 % (45-73); Platelet Count 188 X10*3/uL (160-400); Red Blood Count 3.88 X10*6/uL (4.60-5.80); Red Cell Distribution Width 12.4 % (11.0-16.0); White Blood Count 5.4 X10*3/uL (4.8-10.8)
[2024-03-09 11:21] LABS: Alanine Aminotransferase 27 U/L (0-40); Albumin Level 3.3 g/dL (3.5-5.0); Alkaline Phosphatase 84 U/L (39-117); Anion Gap 11 (12-20); Aspartate Amino Transferase 17 U/L (5-37); Blood Urea Nitrogen 36 mg/dL (9-16); Calcium 9.4 mg/dL (8.4-10.2); Carbon Dioxide 25 mmol/L (22-29); Chloride 107 mmol/L (96-108); Estimated Glomerular Filt Rate > 60; Glucose Random 91 mg/dL (60-115); Potassium 4.6 mmol/L (3.3-5.1); Sodium 138 mmol/L (135-145); Total Protein 6.6 g/dL (6.5-8.0)
[2024-03-09 20:00] VITALS: BP 113/59; PULSE 70; RESP 14; TEMP 36.1; O2SAT 93
[2024-03-09] MEDS: risperiDONE 2 MG TABLET PO (20:34)
[2024-03-09] MEDS: Mirtazapine 7.5 MG TABLET PO (20:35)
[2024-03-10] MEDS: Midodrine HCl 10 MG TABLET PO ×3 (05:50→17:11)
[2024-03-10 08:00] VITALS: BP 104/64; PULSE 78; RESP 16; TEMP 36; O2SAT 95
[2024-03-10] MEDS: Vortioxetine Hydrobromide 5 MG TABLET PO (08:21)
[2024-03-10] MEDS: Famotidine 20 MG TABLET PO (08:21)
[2024-03-10] MEDS: polyethylene glycoL 3350 17 GM POWD.PACK PO (08:21)
[2024-03-10] MEDS: Memantine HCl 5 MG TABLET PO ×2 (08:21→20:08)
[2024-03-10] MEDS: modafiniL 100 MG TABLET PO (08:21)
--- NOTE | 2024-03-10 10:54 | HO.PSYCHPN ---
Subjective Subjective Date of Service: 03/09/24 Reason For Visit: Schizoaffective disorder, unspecified type Subjective Notes: Section 8 Interim History: Pt slept through the night. CMP with elevation in BUN, Cr 1.03. BP lower even with midodrine, does seem to be dehydrated. Pt adviced to drink fluids, but takes sips and then decline. May consider IV fluids. Pt mostly in bed. He denies SI/HI. No behavioral concerns. Diagnostics Vital Signs (24Hr): Vital Signs - 24 hr 03/09/24 20:00 03/10/24 08:00 Temperature 97 F 96.8 F Pulse Rate 70 78 Respiratory Rate 14 16 Blood Pressure 113/59 L 104/64 Pulse Oximetry 93 95 Oxygen Delivery Method Room Air Room Air BMI result Body Mass Index 17.6 Labs 03/09/24 10:51 03/09/24 10:51 Labs: Laboratory Results - last 48 hr 03/09/24 10:51 WBC 5.4 RBC 3.88 L Hgb 13.9 L Hct 38.1 L MCV 98.2 H MCH 35.8 H MCHC 36.5 H RDW 12.4 Plt Count 188 MPV 10.7 Immature Gran % (Auto) 0.2 Neut % (Auto) 61.7 Lymph % (Auto) 25.3 [place] % (Auto) 12.4 H Eos % (Auto) 0.4 Baso % (Auto) 0.0 Lymph # (Auto) 1.4 [place] # (Auto) 0.7 Eos # (Auto) 0.0 Baso # (Auto) 0.0 Abs Immat Gran (auto) 0.01 Absolute Neuts (auto) 3.4 Absolute Nucleated RBC 0.000 Nucleated RBC % (auto) 0.0 Sodium 138 Potassium 4.6 Chloride 107 Carbon Dioxide 25 Anion Gap 11 L BUN 36 H Creatinine 1.03 Estim Creat Clear Calc 53.0 Estimated GFR > 60 Random Glucose 91 Calcium 9.4 Total Bilirubin 1.0 AST 17 ALT 27 Alkaline Phosphatase 84 Total Protein 6.6 Albumin 3.3 L Imaging Radiology Impressions: ITS Impressions Chest X-Ray 11/14/23 15:16 IMPRESSION: No evidence of acute disease. No pulmonary mass, pneumonia or pleural effusion. Chest CT 12/21/23 14:32 IMPRESSION: 1. No focal infiltrate is seen. 2. A 4 mm noncalcified subpleural nodule is seen within the posterior segment of the right upper lobe. According to the UPDATED 2017 Fleischner Society recommendations, the advised follow-up imaging for solid nodules < 6 mm is: LOW RISK PATIENT: No routine follow-up. HIGH RISK PATIENT: Optional CT at 12 months. 3. There is no thoracic lymphadenopathy or pleural effusion. 4. There is a marked kyphoscoliosis. No acute or aggressive osseous lesion is seen. 5. There is mild cholelithiasis. Fleischner guidelines were followed. KUB X-Ray 01/17/24 10:57 IMPRESSION: Multiple prominent, distended air-filled loops of small and large bowel. [id number] amount of stool in the colon. Correlation with clinical exam recommended to determine further management including possible additional imaging with CT scan of the abdomen and pelvis if abdominal pathology is suspected. This study was presented today January 19, 2024 for interpretation. Stat results provided at this time as requested by referring provider. Medications Medications Current Medications Famotidine (Famotidine 20 Mg Tablet) 20 mg PO DAILY [facility] Last Admin: 03/10/24 08:21 Dose: 20 mg Loperamide HCl (Loperamide Hcl 2 Mg Capsule) 2 mg PO Q4H PRN PRN Reason: loose stools Last Admin: 01/13/24 15:22 Dose: 2 mg Magnesium Hydroxide (Milk Of Magnesia 30 Ml Oral.Susp) 30 ml PO BID PRN PRN Reason: Constipation Last Admin: 03/05/24 00:29 Dose: 30 ml Memantine (Memantine Hcl 5 Mg Tablet) 5 mg PO BID [facility] Last Admin: 03/10/24 08:21 Dose: 5 mg Midodrine (Midodrine Hcl 10 Mg Tablet) 10 mg PO TID@0600,1200,1800 [facility] Last Admin: 03/10/24 05:50 Dose: 10 mg Mirtazapine (Mirtazapine 7.5 Mg Tablet) 7.5 mg PO BEDTIME [facility] Last Admin: 03/09/24 20:35 Dose: 7.5 mg Modafinil (Modafinil 100 Mg Tablet) 100 mg PO DAILY [facility] Last Admin: 03/10/24 08:21 Dose: 100 mg Polyethylene Glycol (Polyethylene Glycol 3350 17 Gm Powd.Pack) 17 gm PO DAILY [facility] Last Admin: 03/10/24 08:21 Dose: 17 gm Risperidone (Risperidone 2 Mg Tablet) 2 mg PO BEDTIME [facility] Last Admin: 03/09/24 20:34 Dose: 2 mg Senna (Sennosides 8.6 Mg Tablet) 8.6 mg PO BEDTIME YESY Last Admin: 03/09/24 21:26 Dose: Not Given Vortioxetine (Vortioxetine Hydrobromide 5 Mg Tablet) 5 mg PO DAILY [facility] Last Admin: 03/10/24 08:21 Dose: 5 mg Allergies Allergies Allergy/AdvReac Type Severity Reaction Status Date / Time omeprazole Allergy Unknown Verified 10/30/23 00:09 Assessment & Plan Assessment & Plan (1) Schizophrenia: Status: Acute Code(s): F20.9 - Schizophrenia, unspecified (2) Failure to thrive in adult: Status: Acute Code(s): R62.7 - Adult failure to thrive Plan The patient is a 63-year-old male with a past history of schizophrenia who had been in and out of several facilities in the last year with severe hypoactive behavior, catatonic like symptoms and chronic noncompliance who needed to go for Section 7 and 8 for ECT. Even though that he had been treated with antipsychotics he remains still internally preoccupied. Plan 01/22/2024: No changes to current plan. Will add MiraLax 01/22: no changes 01/23 continue tx 01/24 continue tx. 01/25 continue tx 01/27 continue tx. 01/28: Continue current regimen and plans 01/29: Continue current regimen and plans. 01/30 continue tx. awaiting guardianship. 01/31 continue tx. 02/01 continue tx. 02/02 continue tx. 02/03 continue tx. 02/06 continue tx. 02/08: stable presentation. continue current mgmt. 02/09: no change 02/10: no change 02/11 continue same treatment 02/12 continue same treatment 02/13 continue tx. 02/14 continue tx. 02/15 continue tx 02/17 continue same treatment 02/18: appears slightly more wakeful and energetic than last time this policy writer sales met with pt. continue current mgmt. 02/19: as per yesterday. 02/20 continue tx. 02/21 continue tx. 02/22 continue tx. 02/24 continue tx. 02/25 no change ? worsening- follow vs get labs if continues to refuse food/hydration 02/27 continue tx. 02/28 continue tx. 03/02: slowed, appears tired/fatigued. poor PO intake. continue current mgmt. 03/03 continue tx. 03/04: continue current management and treatment plan. 03/05: Continue current management and treatment plan. 03/06: Continue current management and treatment plan. 03/07 continue tx. 03/08 cmp elevation in BUN, cr at baseline. BP low even with midodrine, may benefit from IV fluids if refuses increase fluid intake. Reason for continued inpatient stay Substantial Risk for: inability to function Time Spent With Patient Time: Total time managing care of this patient today ____ minutes.
--- NOTE | 2024-03-10 11:18 | HO.PSYCHPN ---
Subjective Subjective Date of Service: 03/10/24 Reason For Visit: Schizoaffective disorder, unspecified type Interim History: Pt slept through the night. CMP with elevation in BUN, Cr 1.03. BP lower even with midodrine, does seem to be dehydrated. Pt adviced to drink fluids, but takes sips and then decline. May consider IV fluids. Pt mostly in bed. He denies SI/HI. No behavioral concerns. Review of Systems Review of Systems Constipation improving Yes all other systems are reviewed and are negative and Unobtainable due to mental status Mental Status Exam Mental Status Exam Patient Appearance: Fatigued, Disheveled and Unkempt Patient Orientation: Person and Place Level of Consciousness: Drowsy Patient Behavior: Passive, Resistive to Care and Poor Eye Contact Mood Description: Withdrawn, Constricted and Flat Affect Description: Flat Patient Cognition Impaired: Yes Ability to Follow Directions: Poor Speech Pattern: Clear Diagnostics Vital Signs (24Hr): Vital Signs - 24 hr 03/09/24 20:00 03/10/24 08:00 Temperature 97 F 96.8 F Pulse Rate 70 78 Respiratory Rate 14 16 Blood Pressure 113/59 L 104/64 Pulse Oximetry 93 95 Oxygen Delivery Method Room Air Room Air BMI result Body Mass Index 17.6 Labs 03/09/24 10:51 03/09/24 10:51 Labs: Laboratory Results - last 48 hr 03/09/24 10:51 WBC 5.4 RBC 3.88 L Hgb 13.9 L Hct 38.1 L MCV 98.2 H MCH 35.8 H MCHC 36.5 H RDW 12.4 Plt Count 188 MPV 10.7 Immature Gran % (Auto) 0.2 Neut % (Auto) 61.7 Lymph % (Auto) 25.3 [place] % (Auto) 12.4 H Eos % (Auto) 0.4 Baso % (Auto) 0.0 Lymph # (Auto) 1.4 [place] # (Auto) 0.7 Eos # (Auto) 0.0 Baso # (Auto) 0.0 Abs Immat Gran (auto) 0.01 Absolute Neuts (auto) 3.4 Absolute Nucleated RBC 0.000 Nucleated RBC % (auto) 0.0 Sodium 138 Potassium 4.6 Chloride 107 Carbon Dioxide 25 Anion Gap 11 L BUN 36 H Creatinine 1.03 Estim Creat Clear Calc 53.0 Estimated GFR > 60 Random Glucose 91 Calcium 9.4 Total Bilirubin 1.0 AST 17 ALT 27 Alkaline Phosphatase 84 Total Protein 6.6 Albumin 3.3 L Imaging Radiology Impressions: ITS Impressions Chest X-Ray 11/14/23 15:16 IMPRESSION: No evidence of acute disease. No pulmonary mass, pneumonia or pleural effusion. Chest CT 12/21/23 14:32 IMPRESSION: 1. No focal infiltrate is seen. 2. A 4 mm noncalcified subpleural nodule is seen within the posterior segment of the right upper lobe. According to the UPDATED 2017 Fleischner Society recommendations, the advised follow-up imaging for solid nodules < 6 mm is: LOW RISK PATIENT: No routine follow-up. HIGH RISK PATIENT: Optional CT at 12 months. 3. There is no thoracic lymphadenopathy or pleural effusion. 4. There is a marked kyphoscoliosis. No acute or aggressive osseous lesion is seen. 5. There is mild cholelithiasis. Fleischner guidelines were followed. KUB X-Ray 01/17/24 10:57 IMPRESSION: Multiple prominent, distended air-filled loops of small and large bowel. [id number] amount of stool in the colon. Correlation with clinical exam recommended to determine further management including possible additional imaging with CT scan of the abdomen and pelvis if abdominal pathology is suspected. This study was presented today January 19, 2024 for interpretation. Stat results provided at this time as requested by referring provider. Medications Medications Current Medications Cyanocobalamin (Cyanocobalamin (Vitamin B-12) 1,000 Mcg Tablet) 1,000 mcg PO DAILY [facility] Famotidine (Famotidine 20 Mg Tablet) 20 mg PO DAILY [facility] Last Admin: 03/10/24 08:21 Dose: 20 mg Loperamide HCl (Loperamide Hcl 2 Mg Capsule) 2 mg PO Q4H PRN PRN Reason: loose stools Last Admin: 01/13/24 15:22 Dose: 2 mg Magnesium Hydroxide (Milk Of Magnesia 30 Ml Oral.Susp) 30 ml PO BID PRN PRN Reason: Constipation Last Admin: 03/05/24 00:29 Dose: 30 ml Memantine (Memantine Hcl 5 Mg Tablet) 5 mg PO BID [facility] Last Admin: 03/10/24 08:21 Dose: 5 mg Midodrine (Midodrine Hcl 10 Mg Tablet) 10 mg PO TID@0600,1200,1800 [facility] Last Admin: 03/10/24 05:50 Dose: 10 mg Mirtazapine (Mirtazapine 7.5 Mg Tablet) 7.5 mg PO BEDTIME [facility] Last Admin: 03/09/24 20:35 Dose: 7.5 mg Modafinil (Modafinil 100 Mg Tablet) 100 mg PO DAILY [facility] Last Admin: 03/10/24 08:21 Dose: 100 mg Polyethylene Glycol (Polyethylene Glycol 3350 17 Gm Powd.Pack) 17 gm PO DAILY PRN PRN Reason: contipation Risperidone (Risperidone 2 Mg Tablet) 2 mg PO BEDTIME [facility] Last Admin: 03/09/24 20:34 Dose: 2 mg Senna (Sennosides 8.6 Mg Tablet) 8.6 mg PO BEDTIME [facility] Last Admin: 03/09/24 21:26 Dose: Not Given Vitamin D (Cholecalciferol (Vitamin D3) 25 Mcg Tablet) 25 mcg PO DAILY [facility] Vortioxetine (Vortioxetine Hydrobromide 5 Mg Tablet) 5 mg PO DAILY [facility] Last Admin: 03/10/24 08:21 Dose: 5 mg Allergies Allergies Allergy/AdvReac Type Severity Reaction Status Date / Time omeprazole Allergy Unknown Verified 10/30/23 00:09 Assessment & Plan Assessment & Plan (1) Schizophrenia: Status: Acute Code(s): F20.9 - Schizophrenia, unspecified (2) Failure to thrive in adult: Status: Acute Code(s): R62.7 - Adult failure to thrive Plan The patient is a 63-year-old male with a past history of schizophrenia who had been in and out of several facilities in the last year with severe hypoactive behavior, catatonic like symptoms and chronic noncompliance who needed to go for Section 7 and 8 for ECT. Even though that he had been treated with antipsychotics he remains still internally preoccupied. Plan 01/22/2024: No changes to current plan. Will add MiraLax 01/22: no changes 01/23 continue tx 01/24 continue tx. 01/25 continue tx 01/27 continue tx. 01/28: Continue current regimen and plans 01/29: Continue current regimen and plans. 01/30 continue tx. awaiting guardianship. 01/31 continue tx. 02/01 continue tx. 02/02 continue tx. 02/03 continue tx. 02/06 continue tx. 02/08: stable presentation. continue current mgmt. 02/09: no change 02/10: no change 02/11 continue same treatment 02/12 continue same treatment 02/13 continue tx. 02/14 continue tx. 02/15 continue tx 02/17 continue same treatment 02/18: appears slightly more wakeful and energetic than last time this sports book writer met with pt. continue current mgmt. 02/19: as per yesterday. 02/20 continue tx. 02/21 continue tx. 02/22 continue tx. 02/24 continue tx. 02/25 no change ? worsening- follow vs get labs if continues to refuse food/hydration 02/27 continue tx. 02/28 continue tx. 03/02: slowed, appears tired/fatigued. poor PO intake. continue current mgmt. 03/03 continue tx. 03/04: continue current management and treatment plan. 03/05: Continue current management and treatment plan. 03/06: Continue current management and treatment plan. 03/07 continue tx. 03/10 cmp elevation in BUN, cr at baseline. BP low even with midodrine, may benefit from IV fluids if refuses increase fluid intake. Reason for continued inpatient stay Substantial Risk for: inability to function Time Spent With Patient Time: Total time managing care of this patient today ____ minutes.
[2024-03-10] MEDS: Cholecalciferol (Vitamin D3) 25 MCG TABLET PO (11:37)
[2024-03-10] MEDS: Cyanocobalamin (Vitamin B-12) 1,000 MCG TABLET 1000 MCG PO (11:37)
[2024-03-10 20:00] VITALS: BP 123/76; PULSE 76; RESP 16; TEMP 36.1; O2SAT 97
[2024-03-10] MEDS: Sennosides 8.6 MG TABLET PO (20:08)
[2024-03-10] MEDS: risperiDONE 2 MG TABLET PO (20:08)
[2024-03-10] MEDS: Mirtazapine 7.5 MG TABLET PO (20:08)
[2024-03-11 05:24] VITALS: BP 106/73; PULSE 99
[2024-03-11] MEDS: Midodrine HCl 10 MG TABLET PO ×2 (05:25→16:39)
[2024-03-11 08:01] VITALS: BP 90/52; PULSE 82; RESP 18; TEMP 36.2; O2SAT 94
--- NOTE | 2024-03-11 08:17 | PC.NURSE ---
Blood pressure 90/52 and Darryl is asymptomatic. Received Midodrine dose this morning. Encouraged po fluids and Darryl ate breakfast and drank Ensure. Dr. Galarza notified.
[2024-03-11] MEDS: Famotidine 20 MG TABLET PO (08:59)
[2024-03-11] MEDS: Memantine HCl 5 MG TABLET PO ×2 (08:59→20:42)
[2024-03-11] MEDS: Cholecalciferol (Vitamin D3) 25 MCG TABLET PO (08:59)
[2024-03-11] MEDS: modafiniL 100 MG TABLET PO (08:59)
[2024-03-11] MEDS: Vortioxetine Hydrobromide 5 MG TABLET PO (08:59)
[2024-03-11] MEDS: Cyanocobalamin (Vitamin B-12) 1,000 MCG TABLET 1000 MCG PO (08:59)
--- NOTE | 2024-03-11 09:29 | P.PNPSI_ITS ---
Subjective Subjective Date of Service: 03/11/24 Reason For Visit: Schizoaffective disorder, unspecified type Subjective Notes: Section 7 and Section 8 Interim History: The nursing staff reported the patient took his medications, he had 5 hours movement yesterday. He slept 4 hours due to his GI problems. Yesterday he had blood work and he was started on vitamin-B 12 and vitamin D3. On interview the patient denies new symptoms, blunted affect. Waiting for placement. Mental Status Exam Mental Status Exam Patient Appearance: Appropriate Patient Orientation: Person and Situation Level of Consciousness: Awake and Appropriate Patient Behavior: Guarded and Passive Mood Description: Withdrawn Affect Description: Constricted Patient Cognition Impaired: Yes Ability to Follow Directions: Good Speech Pattern: Clear Hallucinations: None Delusions: Ideas of Reference Thought Process: Distracted and Slowed Thinking Thought Content: positive for Poverty of Content Judgement: Fair Diagnostics Vital Signs (24Hr): Vital Signs - 24 hr 03/10/24 20:00 03/11/24 05:24 03/11/24 08:01 Temperature 97 F 97.1 F Pulse Rate 76 99 82 Respiratory Rate 16 18 Blood Pressure 123/76 106/73 90/52 L Pulse Oximetry 97 94 Oxygen Delivery Method Room Air Room Air BMI result Body Mass Index 17.6 Labs 03/09/24 10:51 03/09/24 10:51 Labs: Laboratory Results - last 48 hr 03/09/24 10:51 WBC 5.4 RBC 3.88 L Hgb 13.9 L Hct 38.1 L MCV 98.2 H MCH 35.8 H MCHC 36.5 H RDW 12.4 Plt Count 188 MPV 10.7 Immature Gran % (Auto) 0.2 Neut % (Auto) 61.7 Lymph % (Auto) 25.3 [place] % (Auto) 12.4 H Eos % (Auto) 0.4 Baso % (Auto) 0.0 Lymph # (Auto) 1.4 [place] # (Auto) 0.7 Eos # (Auto) 0.0 Baso # (Auto) 0.0 Abs Immat Gran (auto) 0.01 Absolute Neuts (auto) 3.4 Absolute Nucleated RBC 0.000 Nucleated RBC % (auto) 0.0 Sodium 138 Potassium 4.6 Chloride 107 Carbon Dioxide 25 Anion Gap 11 L BUN 36 H Creatinine 1.03 Estim Creat Clear Calc 53.0 Estimated GFR > 60 Random Glucose 91 Calcium 9.4 Total Bilirubin 1.0 AST 17 ALT 27 Alkaline Phosphatase 84 Total Protein 6.6 Albumin 3.3 L Imaging Radiology Impressions: ITS Impressions Chest X-Ray 11/14/23 15:16 IMPRESSION: No evidence of acute disease. No pulmonary mass, pneumonia or pleural effusion. Chest CT 12/21/23 14:32 IMPRESSION: 1. No focal infiltrate is seen. 2. A 4 mm noncalcified subpleural nodule is seen within the posterior segment of the right upper lobe. According to the UPDATED 2017 Fleischner Society recommendations, the advised follow-up imaging for solid nodules < 6 mm is: LOW RISK PATIENT: No routine follow-up. HIGH RISK PATIENT: Optional CT at 12 months. 3. There is no thoracic lymphadenopathy or pleural effusion. 4. There is a marked kyphoscoliosis. No acute or aggressive osseous lesion is seen. 5. There is mild cholelithiasis. Fleischner guidelines were followed. KUB X-Ray 01/17/24 10:57 IMPRESSION: Multiple prominent, distended air-filled loops of small and large bowel. [id number] amount of stool in the colon. Correlation with clinical exam recommended to determine further management including possible additional imaging with CT scan of the abdomen and pelvis if abdominal pathology is suspected. This study was presented today January 19, 2024 for interpretation. Stat results provided at this time as requested by referring provider. Medications Medications Current Medications Cyanocobalamin (Cyanocobalamin (Vitamin B-12) 1,000 Mcg Tablet) 1,000 mcg PO DAILY [facility] Last Admin: 03/11/24 08:59 Dose: 1,000 mcg Famotidine (Famotidine 20 Mg Tablet) 20 mg PO DAILY [facility] Last Admin: 03/11/24 08:59 Dose: 20 mg Loperamide HCl (Loperamide Hcl 2 Mg Capsule) 2 mg PO Q4H PRN PRN Reason: loose stools Last Admin: 01/13/24 15:22 Dose: 2 mg Magnesium Hydroxide (Milk Of Magnesia 30 Ml Oral.Susp) 30 ml PO BID PRN PRN Reason: Constipation Last Admin: 03/05/24 00:29 Dose: 30 ml Memantine (Memantine Hcl 5 Mg Tablet) 5 mg PO BID [facility] Last Admin: 03/11/24 08:59 Dose: 5 mg Midodrine (Midodrine Hcl 10 Mg Tablet) 10 mg PO TID@0600,1200,1800 [facility] Last Admin: 03/11/24 05:25 Dose: 10 mg Mirtazapine (Mirtazapine 7.5 Mg Tablet) 7.5 mg PO BEDTIME [facility] Last Admin: 03/10/24 20:08 Dose: 7.5 mg Modafinil (Modafinil 100 Mg Tablet) 100 mg PO DAILY [facility] Last Admin: 03/11/24 08:59 Dose: 100 mg Polyethylene Glycol (Polyethylene Glycol 3350 17 Gm Powd.Pack) 17 gm PO DAILY PRN PRN Reason: contipation Risperidone (Risperidone 2 Mg Tablet) 2 mg PO BEDTIME [facility] Last Admin: 03/10/24 20:08 Dose: 2 mg Senna (Sennosides 8.6 Mg Tablet) 8.6 mg PO BEDTIME [facility] Last Admin: 03/10/24 20:08 Dose: 8.6 mg Vitamin D (Cholecalciferol (Vitamin D3) 25 Mcg Tablet) 25 mcg PO DAILY [facility] Last Admin: 03/11/24 08:59 Dose: 25 mcg Vortioxetine (Vortioxetine Hydrobromide 5 Mg Tablet) 5 mg PO DAILY [facility] Last Admin: 03/11/24 08:59 Dose: 5 mg Allergies Allergies Allergy/AdvReac Type Severity Reaction Status Date / Time omeprazole Allergy Unknown Verified 10/30/23 00:09 Assessment & Plan Assessment & Plan (1) Schizophrenia: Status: Acute Code(s): F20.9 - Schizophrenia, unspecified (2) Failure to thrive in adult: Status: Acute Code(s): R62.7 - Adult failure to thrive Plan The patient is a 63-year-old male with a past history of schizophrenia who had been in and out of several facilities in the last year with severe hypoactive behavior, catatonic like symptoms and chronic noncompliance who needed to go for Section 7 and 8 for ECT. Even though that he had been treated with antipsychotics he remains still internally preoccupied. Plan 01/22/2024: No changes to current plan. Will add MiraLax 01/22: no changes 01/23 continue tx 01/24 continue tx. 01/25 continue tx 01/27 continue tx. 01/28: Continue current regimen and plans 01/29: Continue current regimen and plans. 01/30 continue tx. awaiting guardianship. 01/31 continue tx. 02/01 continue tx. 02/02 continue tx. 02/03 continue tx. 02/06 continue tx. 02/08: stable presentation. continue current mgmt. 02/09: no change 02/10: no change 02/11 continue same treatment 02/12 continue same treatment 02/13 continue tx. 02/14 continue tx. 02/15 continue tx 02/17 continue same treatment 02/18: appears slightly more wakeful and energetic than last time this television script writer met with pt. continue current mgmt. 02/19: as per yesterday. 02/20 continue tx. 02/21 continue tx. 02/22 continue tx. 02/24 continue tx. 02/25 no change ? worsening- follow vs get labs if continues to refuse food/hydration 02/27 continue tx. 02/28 continue tx. 03/02: slowed, appears tired/fatigued. poor PO intake. continue current mgmt. 03/03 continue tx. 03/04: continue current management and treatment plan. 03/05: Continue current management and treatment plan. 03/06: Continue current management and treatment plan. 03/07 continue tx. 03/10 cmp elevation in BUN, cr at baseline. BP low even with midodrine, may benefit from IV fluids if refuses increase fluid intake. 03/11 keep same treatment Reason for continued inpatient stay Substantial Risk for: inability to function, rapid decompensation and med/psych decompensation Time Spent With Patient Time: Total time managing care of this patient today __20__ minutes.
[2024-03-11 11:33] VITALS: BP 131/84
[2024-03-11 16:38] VITALS: BP 109/79
[2024-03-11 19:59] VITALS: BP 91/53; PULSE 85; RESP 16; TEMP 36.9; O2SAT 98
[2024-03-11] MEDS: Mirtazapine 7.5 MG TABLET PO (20:41)
[2024-03-11] MEDS: risperiDONE 2 MG TABLET PO (20:42)
[2024-03-11] MEDS: Sennosides 8.6 MG TABLET PO (20:42)
[2024-03-12] MEDS: Midodrine HCl 10 MG TABLET PO ×3 (05:31→17:24)
[2024-03-12 05:32] VITALS: BP 80/55; PULSE 71; RESP 16; TEMP 36.1; O2SAT 95
[2024-03-12 07:56] VITALS: BP 124/72; PULSE 80; RESP 18; TEMP 36.1; O2SAT 96
[2024-03-12] MEDS: Famotidine 20 MG TABLET PO (08:17)
[2024-03-12] MEDS: Memantine HCl 5 MG TABLET PO ×2 (08:17→19:45)
[2024-03-12] MEDS: Vortioxetine Hydrobromide 5 MG TABLET PO (08:17)
[2024-03-12] MEDS: modafiniL 100 MG TABLET PO (08:17)
[2024-03-12] MEDS: Cyanocobalamin (Vitamin B-12) 1,000 MCG TABLET 1000 MCG PO (08:17)
[2024-03-12] MEDS: Cholecalciferol (Vitamin D3) 25 MCG TABLET PO (08:18)
--- NOTE | 2024-03-12 10:37 | HO.PSYCHPN ---
Subjective Subjective Date of Service: 03/12/24 Reason For Visit: Schizoaffective disorder, unspecified type Subjective Notes: Section 7 and Section 8 Interim History: The nursing staff reported the patient slept better last night he had been compliant with medications baseline. On interview the patient denies new symptoms Mental Status Exam Mental Status Exam Patient Appearance: Appropriate Patient Orientation: Person and Situation Level of Consciousness: Awake Patient Behavior: Guarded and Passive Mood Description: Withdrawn Affect Description: Constricted Patient Cognition Impaired: Yes Ability to Follow Directions: Fair Speech Pattern: Clear Hallucinations: None Delusions: Ideas of Reference Thought Process: Distracted and Slowed Thinking Thought Content: positive for [place] and positive for Poverty of Content Judgement: Poor Diagnostics Vital Signs (24Hr): Vital Signs - 24 hr 03/11/24 11:33 03/11/24 16:38 03/11/24 19:59 Temperature 98.4 F Pulse Rate 85 Respiratory Rate 16 Blood Pressure 131/84 109/79 91/53 L Pulse Oximetry 98 Oxygen Delivery Method Room Air 03/12/24 05:32 03/12/24 07:56 Temperature 96.9 F 96.9 F Pulse Rate 71 80 Respiratory Rate 16 18 Blood Pressure 80/55 L 124/72 Pulse Oximetry 95 96 Oxygen Delivery Method Room Air Room Air BMI result Body Mass Index 17.6 Labs 03/09/24 10:51 03/09/24 10:51 Imaging Radiology Impressions: ITS Impressions Chest X-Ray 11/14/23 15:16 IMPRESSION: No evidence of acute disease. No pulmonary mass, pneumonia or pleural effusion. Chest CT 12/21/23 14:32 IMPRESSION: 1. No focal infiltrate is seen. 2. A 4 mm noncalcified subpleural nodule is seen within the posterior segment of the right upper lobe. According to the UPDATED 2017 Fleischner Society recommendations, the advised follow-up imaging for solid nodules < 6 mm is: LOW RISK PATIENT: No routine follow-up. HIGH RISK PATIENT: Optional CT at 12 months. 3. There is no thoracic lymphadenopathy or pleural effusion. 4. There is a marked kyphoscoliosis. No acute or aggressive osseous lesion is seen. 5. There is mild cholelithiasis. Fleischner guidelines were followed. KUB X-Ray 01/17/24 10:57 IMPRESSION: Multiple prominent, distended air-filled loops of small and large bowel. [id number] amount of stool in the colon. Correlation with clinical exam recommended to determine further management including possible additional imaging with CT scan of the abdomen and pelvis if abdominal pathology is suspected. This study was presented today January 19, 2024 for interpretation. Stat results provided at this time as requested by referring provider. Medications Medications Current Medications Cyanocobalamin (Cyanocobalamin (Vitamin B-12) 1,000 Mcg Tablet) 1,000 mcg PO DAILY [facility] Last Admin: 03/12/24 08:17 Dose: 1,000 mcg Famotidine (Famotidine 20 Mg Tablet) 20 mg PO DAILY [facility] Last Admin: 03/12/24 08:17 Dose: 20 mg Loperamide HCl (Loperamide Hcl 2 Mg Capsule) 2 mg PO Q4H PRN PRN Reason: loose stools Last Admin: 01/13/24 15:22 Dose: 2 mg Magnesium Hydroxide (Milk Of Magnesia 30 Ml Oral.Susp) 30 ml PO BID PRN PRN Reason: Constipation Last Admin: 03/05/24 00:29 Dose: 30 ml Memantine (Memantine Hcl 5 Mg Tablet) 5 mg PO BID [facility] Last Admin: 03/12/24 08:17 Dose: 5 mg Midodrine (Midodrine Hcl 10 Mg Tablet) 10 mg PO TID@0600,1200,1800 [facility] Last Admin: 03/12/24 05:31 Dose: 10 mg Mirtazapine (Mirtazapine 7.5 Mg Tablet) 7.5 mg PO BEDTIME [facility] Last Admin: 03/11/24 20:41 Dose: 7.5 mg Modafinil (Modafinil 100 Mg Tablet) 100 mg PO DAILY [facility] Last Admin: 03/12/24 08:17 Dose: 100 mg Polyethylene Glycol (Polyethylene Glycol 3350 17 Gm Powd.Pack) 17 gm PO DAILY PRN PRN Reason: contipation Risperidone (Risperidone 2 Mg Tablet) 2 mg PO BEDTIME [facility] Last Admin: 03/11/24 20:42 Dose: 2 mg Senna (Sennosides 8.6 Mg Tablet) 8.6 mg PO BEDTIME [facility] Last Admin: 03/11/24 20:42 Dose: 8.6 mg Vitamin D (Cholecalciferol (Vitamin D3) 25 Mcg Tablet) 25 mcg PO DAILY [facility] Last Admin: 03/12/24 08:18 Dose: 25 mcg Vortioxetine (Vortioxetine Hydrobromide 5 Mg Tablet) 5 mg PO DAILY [facility] Last Admin: 03/12/24 08:17 Dose: 5 mg Allergies Allergies Allergy/AdvReac Type Severity Reaction Status Date / Time omeprazole Allergy Unknown Verified 10/30/23 00:09 Assessment & Plan Assessment & Plan (1) Schizophrenia: Status: Acute Code(s): F20.9 - Schizophrenia, unspecified (2) Failure to thrive in adult: Status: Acute Code(s): R62.7 - Adult failure to thrive Plan The patient is a 63-year-old male with a past history of schizophrenia who had been in and out of several facilities in the last year with severe hypoactive behavior, catatonic like symptoms and chronic noncompliance who needed to go for Section 7 and 8 for ECT. Even though that he had been treated with antipsychotics he remains still internally preoccupied. Plan 01/22/2024: No changes to current plan. Will add MiraLax 01/22: no changes 01/23 continue tx 01/24 continue tx. 01/25 continue tx 01/27 continue tx. 01/28: Continue current regimen and plans 01/29: Continue current regimen and plans. 01/30 continue tx. awaiting guardianship. 01/31 continue tx. 02/01 continue tx. 02/02 continue tx. 02/03 continue tx. 02/06 continue tx. 02/08: stable presentation. continue current mgmt. 02/09: no change 02/10: no change 02/11 continue same treatment 02/12 continue same treatment 02/13 continue tx. 02/14 continue tx. 02/15 continue tx 02/17 continue same treatment 02/18: appears slightly more wakeful and energetic than last time this automatic typewriter inspector met with pt. continue current mgmt. 02/19: as per yesterday. 02/20 continue tx. 02/21 continue tx. 02/22 continue tx. 02/24 continue tx. 02/25 no change ? worsening- follow vs get labs if continues to refuse food/hydration 02/27 continue tx. 02/28 continue tx. 03/02: slowed, appears tired/fatigued. poor PO intake. continue current mgmt. 03/03 continue tx. 03/04: continue current management and treatment plan. 03/05: Continue current management and treatment plan. 03/06: Continue current management and treatment plan. 03/07 continue tx. 03/10 cmp elevation in BUN, cr at baseline. BP low even with midodrine, may benefit from IV fluids if refuses increase fluid intake. 03/11 keep same treatment 03/12 keep same treatment Reason for continued inpatient stay Substantial Risk for: inability to function, rapid decompensation and med/psych decompensation Time Spent With Patient Time: Total time managing care of this patient today __20__ minutes.
[2024-03-12 11:38] VITALS: BP 99/63
[2024-03-12 17:22] VITALS: BP 87/52
[2024-03-12] MEDS: Sennosides 8.6 MG TABLET PO (19:45)
[2024-03-12] MEDS: risperiDONE 2 MG TABLET PO (19:45)
[2024-03-12] MEDS: Mirtazapine 7.5 MG TABLET PO (19:45)
[2024-03-12 20:00] VITALS: BP 87/48; PULSE 61; RESP 15; TEMP 36.3; O2SAT 97
[2024-03-13 05:10] VITALS: BP 99/64; PULSE 81
[2024-03-13] MEDS: Midodrine HCl 10 MG TABLET PO ×3 (05:12→17:24)
--- NOTE | 2024-03-13 08:51 | P.PNPSI_ITS ---
Subjective Subjective Date of Service: 03/13/24 Reason For Visit: Schizoaffective disorder, unspecified type Subjective Notes: Section 8 Interim History: Pt slept through the night. He is mostly in bed, minimally interacting with peers. Needs encouragement to get out of the room, have enough fluids. No SI/HI. severe poverty of thought. Review of Systems Review of Systems Constipation improving Yes all other systems are reviewed and are negative and Unobtainable due to mental status Mental Status Exam Mental Status Exam Patient Appearance: Appropriate Patient Orientation: Person and Situation Level of Consciousness: Awake Patient Behavior: Guarded and Passive Mood Description: Withdrawn Affect Description: Constricted Patient Cognition Impaired: Yes Ability to Follow Directions: Fair Speech Pattern: Clear Diagnostics Vital Signs (24Hr): Vital Signs - 24 hr 03/12/24 11:38 03/12/24 17:22 03/12/24 20:00 Temperature 97.3 F Pulse Rate 61 Respiratory Rate 15 Blood Pressure 99/63 87/52 L 87/48 L Pulse Oximetry 97 Oxygen Delivery Method Room Air 03/13/24 05:10 Temperature Pulse Rate 81 Respiratory Rate Blood Pressure 99/64 Pulse Oximetry Oxygen Delivery Method BMI result Body Mass Index 17.6 Labs 03/09/24 10:51 03/09/24 10:51 Imaging Radiology Impressions: ITS Impressions Chest X-Ray 11/14/23 15:16 IMPRESSION: No evidence of acute disease. No pulmonary mass, pneumonia or pleural effusion. Chest CT 12/21/23 14:32 IMPRESSION: 1. No focal infiltrate is seen. 2. A 4 mm noncalcified subpleural nodule is seen within the posterior segment of the right upper lobe. According to the UPDATED 2017 Fleischner Society recommendations, the advised follow-up imaging for solid nodules < 6 mm is: LOW RISK PATIENT: No routine follow-up. HIGH RISK PATIENT: Optional CT at 12 months. 3. There is no thoracic lymphadenopathy or pleural effusion. 4. There is a marked kyphoscoliosis. No acute or aggressive osseous lesion is seen. 5. There is mild cholelithiasis. Fleischner guidelines were followed. KUB X-Ray 01/17/24 10:57 IMPRESSION: Multiple prominent, distended air-filled loops of small and large bowel. [id number] amount of stool in the colon. Correlation with clinical exam recommended to determine further management including possible additional imaging with CT scan of the abdomen and pelvis if abdominal pathology is suspected. This study was presented today January 19, 2024 for interpretation. Stat results provided at this time as requested by referring provider. Medications Medications Current Medications Cyanocobalamin (Cyanocobalamin (Vitamin B-12) 1,000 Mcg Tablet) 1,000 mcg PO DAILY [facility] Last Admin: 03/12/24 08:17 Dose: 1,000 mcg Famotidine (Famotidine 20 Mg Tablet) 20 mg PO DAILY [facility] Last Admin: 03/12/24 08:17 Dose: 20 mg Loperamide HCl (Loperamide Hcl 2 Mg Capsule) 2 mg PO Q4H PRN PRN Reason: loose stools Last Admin: 01/13/24 15:22 Dose: 2 mg Magnesium Hydroxide (Milk Of Magnesia 30 Ml Oral.Susp) 30 ml PO BID PRN PRN Reason: Constipation Last Admin: 03/05/24 00:29 Dose: 30 ml Memantine (Memantine Hcl 5 Mg Tablet) 5 mg PO BID [facility] Last Admin: 03/12/24 19:45 Dose: 5 mg Midodrine (Midodrine Hcl 10 Mg Tablet) 10 mg PO TID@0600,1200,1800 [facility] Last Admin: 03/13/24 05:12 Dose: 10 mg Mirtazapine (Mirtazapine 7.5 Mg Tablet) 7.5 mg PO BEDTIME [facility] Last Admin: 03/12/24 19:45 Dose: 7.5 mg Modafinil (Modafinil 100 Mg Tablet) 100 mg PO DAILY [facility] Last Admin: 03/12/24 08:17 Dose: 100 mg Polyethylene Glycol (Polyethylene Glycol 3350 17 Gm Powd.Pack) 17 gm PO DAILY PRN PRN Reason: contipation Risperidone (Risperidone 2 Mg Tablet) 2 mg PO BEDTIME [facility] Last Admin: 03/12/24 19:45 Dose: 2 mg Senna (Sennosides 8.6 Mg Tablet) 8.6 mg PO BEDTIME [facility] Last Admin: 03/12/24 19:45 Dose: 8.6 mg Vitamin D (Cholecalciferol (Vitamin D3) 25 Mcg Tablet) 25 mcg PO DAILY [facility] Last Admin: 03/12/24 08:18 Dose: 25 mcg Vortioxetine (Vortioxetine Hydrobromide 5 Mg Tablet) 5 mg PO DAILY [facility] Last Admin: 03/12/24 08:17 Dose: 5 mg Allergies Allergies Allergy/AdvReac Type Severity Reaction Status Date / Time omeprazole Allergy Unknown Verified 10/30/23 00:09 Assessment & Plan Assessment & Plan (1) Schizophrenia: Status: Acute Code(s): F20.9 - Schizophrenia, unspecified (2) Failure to thrive in adult: Status: Acute Code(s): R62.7 - Adult failure to thrive Plan The patient is a 63-year-old male with a past history of schizophrenia who had been in and out of several facilities in the last year with severe hypoactive behavior, catatonic like symptoms and chronic noncompliance who needed to go for Section 7 and 8 for ECT. Even though that he had been treated with antipsychotics he remains still internally preoccupied. Plan 01/22/2024: No changes to current plan. Will add MiraLax 01/22: no changes 01/23 continue tx 01/24 continue tx. 01/25 continue tx 01/27 continue tx. 01/28: Continue current regimen and plans 01/29: Continue current regimen and plans. 01/30 continue tx. awaiting guardianship. 01/31 continue tx. 02/01 continue tx. 02/02 continue tx. 02/03 continue tx. 02/06 continue tx. 02/08: stable presentation. continue current mgmt. 02/09: no change 02/10: no change 02/11 continue same treatment 02/12 continue same treatment 02/13 continue tx. 02/14 continue tx. 02/15 continue tx 02/17 continue same treatment 02/18: appears slightly more wakeful and energetic than last time this conventional underwriter met with pt. continue current mgmt. 02/19: as per yesterday. 02/20 continue tx. 02/21 continue tx. 02/22 continue tx. 02/24 continue tx. 02/25 no change ? worsening- follow vs get labs if continues to refuse food/hydration 02/27 continue tx. 02/28 continue tx. 03/02: slowed, appears tired/fatigued. poor PO intake. continue current mgmt. 03/03 continue tx. 03/04: continue current management and treatment plan. 03/05: Continue current management and treatment plan. 03/06: Continue current management and treatment plan. 03/07 continue tx. 03/10 cmp elevation in BUN, cr at baseline. BP low even with midodrine, may benefit from IV fluids if refuses increase fluid intake. 03/11 keep same treatment 03/12 keep same treatment 03/13 continue tx. Reason for continued inpatient stay Substantial Risk for: inability to function Time Spent With Patient Time: Total time managing care of this patient today ____ minutes.
[2024-03-13 08:53] VITALS: BP 94/60; PULSE 80; RESP 18; TEMP 36.1; O2SAT 96
[2024-03-13 13:26] VITALS: BP 81/51; PULSE 74
--- NOTE | 2024-03-13 13:27 | PC.NURSE ---
Patient refusing all medication today. Roya Condon FINISH MENDER notified. Patient re approached after lunch about taking noontime Midodrine and agreed to take it if he needed it. B/P low 81/51 and patient took medication.
[2024-03-13 17:21] VITALS: BP 89/54
[2024-03-13 20:00] VITALS: BP 97/67; PULSE 100; RESP 16; TEMP 36.6; O2SAT 97
[2024-03-13] MEDS: Memantine HCl 5 MG TABLET PO (20:48)
[2024-03-13] MEDS: risperiDONE 2 MG TABLET PO (20:48)
[2024-03-13] MEDS: Mirtazapine 7.5 MG TABLET PO (20:48)
[2024-03-14] MEDS: Milk of Magnesia 30 ML ORAL.SUSP PO (03:41)
[2024-03-14] MEDS: Midodrine HCl 10 MG TABLET PO ×3 (06:03→17:21)
[2024-03-14 08:05] VITALS: BP 108/64; PULSE 92; RESP 18; TEMP 36.4; O2SAT 97
--- NOTE | 2024-03-14 08:37 | P.PNPSI_ITS ---
Subjective Subjective Date of Service: 03/14/24 Reason For Visit: Schizoaffective disorder, unspecified type Subjective Notes: Section 8 Interim History: Pt was up most of the night. He is mostly in bed, minimally interacting with peers. Needs encouragement to get out of the room, have enough fluids. No SI/HI. severe poverty of thought. Minimally verbal. avoids interactions. Review of Systems Review of Systems Constipation improving Yes all other systems are reviewed and are negative and Unobtainable due to mental status Mental Status Exam Mental Status Exam Patient Appearance: Appropriate Patient Orientation: Person and Situation Level of Consciousness: Awake Patient Behavior: Guarded and Passive Mood Description: Withdrawn Affect Description: Constricted Patient Cognition Impaired: Yes Ability to Follow Directions: Fair Speech Pattern: Clear Diagnostics Vital Signs (24Hr): Vital Signs - 24 hr 03/13/24 08:53 03/13/24 13:26 03/13/24 17:21 Temperature 96.9 F Pulse Rate 80 74 Respiratory Rate 18 Blood Pressure 94/60 81/51 L 89/54 L Pulse Oximetry 96 Oxygen Delivery Method Room Air 03/13/24 20:00 Temperature 97.9 F Pulse Rate 100 Respiratory Rate 16 Blood Pressure 97/67 Pulse Oximetry 97 Oxygen Delivery Method Room Air BMI result Body Mass Index 17.6 Labs 03/09/24 10:51 03/09/24 10:51 Imaging Radiology Impressions: ITS Impressions Chest X-Ray 11/14/23 15:16 IMPRESSION: No evidence of acute disease. No pulmonary mass, pneumonia or pleural effusion. Chest CT 12/21/23 14:32 IMPRESSION: 1. No focal infiltrate is seen. 2. A 4 mm noncalcified subpleural nodule is seen within the posterior segment of the right upper lobe. According to the UPDATED 2017 Fleischner Society recommendations, the advised follow-up imaging for solid nodules < 6 mm is: LOW RISK PATIENT: No routine follow-up. HIGH RISK PATIENT: Optional CT at 12 months. 3. There is no thoracic lymphadenopathy or pleural effusion. 4. There is a marked kyphoscoliosis. No acute or aggressive osseous lesion is seen. 5. There is mild cholelithiasis. Fleischner guidelines were followed. KUB X-Ray 01/17/24 10:57 IMPRESSION: Multiple prominent, distended air-filled loops of small and large bowel. [id number] amount of stool in the colon. Correlation with clinical exam recommended to determine further management including possible additional imaging with CT scan of the abdomen and pelvis if abdominal pathology is suspected. This study was presented today January 19, 2024 for interpretation. Stat results provided at this time as requested by referring provider. Medications Medications Current Medications Cyanocobalamin (Cyanocobalamin (Vitamin B-12) 1,000 Mcg Tablet) 1,000 mcg PO DAILY [facility] Last Admin: 03/13/24 08:58 Dose: Not Given Famotidine (Famotidine 20 Mg Tablet) 20 mg PO DAILY [facility] Last Admin: 03/13/24 08:58 Dose: Not Given Loperamide HCl (Loperamide Hcl 2 Mg Capsule) 2 mg PO Q4H PRN PRN Reason: loose stools Last Admin: 01/13/24 15:22 Dose: 2 mg Magnesium Hydroxide (Milk Of Magnesia 30 Ml Oral.Susp) 30 ml PO BID PRN PRN Reason: Constipation Last Admin: 03/14/24 03:41 Dose: 30 ml Memantine (Memantine Hcl 5 Mg Tablet) 5 mg PO BID [facility] Last Admin: 03/13/24 20:48 Dose: 5 mg Midodrine (Midodrine Hcl 10 Mg Tablet) 10 mg PO TID@0600,1200,1800 [facility] Last Admin: 03/14/24 06:03 Dose: 10 mg Mirtazapine (Mirtazapine 7.5 Mg Tablet) 7.5 mg PO BEDTIME [facility] Last Admin: 03/13/24 20:48 Dose: 7.5 mg Modafinil (Modafinil 100 Mg Tablet) 100 mg PO DAILY [facility] Last Admin: 03/13/24 08:58 Dose: Not Given Polyethylene Glycol (Polyethylene Glycol 3350 17 Gm Powd.Pack) 17 gm PO DAILY PRN PRN Reason: contipation Risperidone (Risperidone 2 Mg Tablet) 2 mg PO BEDTIME [facility] Last Admin: 03/13/24 20:48 Dose: 2 mg Senna (Sennosides 8.6 Mg Tablet) 8.6 mg PO BEDTIME [facility] Last Admin: 03/13/24 22:07 Dose: Not Given Vitamin D (Cholecalciferol (Vitamin D3) 25 Mcg Tablet) 25 mcg PO DAILY [facility] Last Admin: 03/13/24 08:58 Dose: Not Given Vortioxetine (Vortioxetine Hydrobromide 5 Mg Tablet) 5 mg PO DAILY [facility] Last Admin: 03/13/24 08:58 Dose: Not Given Allergies Allergies Allergy/AdvReac Type Severity Reaction Status Date / Time omeprazole Allergy Unknown Verified 10/30/23 00:09 Assessment & Plan Assessment & Plan (1) Schizophrenia: Status: Acute Code(s): F20.9 - Schizophrenia, unspecified (2) Failure to thrive in adult: Status: Acute Code(s): R62.7 - Adult failure to thrive Plan The patient is a 63-year-old male with a past history of schizophrenia who had been in and out of several facilities in the last year with severe hypoactive behavior, catatonic like symptoms and chronic noncompliance who needed to go for Section 7 and 8 for ECT. Even though that he had been treated with antipsychotics he remains still internally preoccupied. Plan 01/22/2024: No changes to current plan. Will add MiraLax 01/22: no changes 01/23 continue tx 01/24 continue tx. 01/25 continue tx 01/27 continue tx. 01/28: Continue current regimen and plans 01/29: Continue current regimen and plans. 01/30 continue tx. awaiting guardianship. 01/31 continue tx. 02/01 continue tx. 02/02 continue tx. 02/03 continue tx. 02/06 continue tx. 02/08: stable presentation. continue current mgmt. 02/09: no change 02/10: no change 02/11 continue same treatment 02/12 continue same treatment 02/13 continue tx. 02/14 continue tx. 02/15 continue tx 02/17 continue same treatment 02/18: appears slightly more wakeful and energetic than last time this bond writer met with pt. continue current mgmt. 02/19: as per yesterday. 02/20 continue tx. 02/21 continue tx. 02/22 continue tx. 02/24 continue tx. 02/25 no change ? worsening- follow vs get labs if continues to refuse food/hydration 02/27 continue tx. 02/28 continue tx. 03/02: slowed, appears tired/fatigued. poor PO intake. continue current mgmt. 03/03 continue tx. 03/04: continue current management and treatment plan. 03/05: Continue current management and treatment plan. 03/06: Continue current management and treatment plan. 03/07 continue tx. 03/10 cmp elevation in BUN, cr at baseline. BP low even with midodrine, may benefit from IV fluids if refuses increase fluid intake. 03/11 keep same treatment 03/12 keep same treatment 03/13 continue tx. 03/14 continue tx. Reason for continued inpatient stay Substantial Risk for: inability to function Time Spent With Patient Time: Total time managing care of this patient today ____ minutes.
[2024-03-14] MEDS: polyethylene glycoL 3350 17 GM POWD.PACK PO (08:50)
[2024-03-14] MEDS: modafiniL 100 MG TABLET PO (08:50)
[2024-03-14] MEDS: Cholecalciferol (Vitamin D3) 25 MCG TABLET PO (08:50)
[2024-03-14] MEDS: Vortioxetine Hydrobromide 5 MG TABLET PO (08:50)
[2024-03-14] MEDS: Memantine HCl 5 MG TABLET PO ×2 (08:50→21:18)
[2024-03-14] MEDS: Cyanocobalamin (Vitamin B-12) 1,000 MCG TABLET 1000 MCG PO (08:50)
[2024-03-14] MEDS: Famotidine 20 MG TABLET PO (08:50)
[2024-03-14 20:00] VITALS: BP 90/62; PULSE 73; RESP 17; TEMP 36.9; O2SAT 97
[2024-03-14] MEDS: risperiDONE 2 MG TABLET PO (21:18)
[2024-03-14] MEDS: Mirtazapine 7.5 MG TABLET PO (21:18)
[2024-03-14] MEDS: Sennosides 8.6 MG TABLET PO (21:18)
[2024-03-15] MEDS: Midodrine HCl 10 MG TABLET PO ×3 (05:59→17:40)
[2024-03-15 08:05] VITALS: BP 100/62; PULSE 67; RESP 18; TEMP 36.8; O2SAT 97
[2024-03-15] MEDS: Memantine HCl 5 MG TABLET PO ×2 (08:13→20:40)
[2024-03-15] MEDS: Cyanocobalamin (Vitamin B-12) 1,000 MCG TABLET 1000 MCG PO (08:13)
[2024-03-15] MEDS: Vortioxetine Hydrobromide 5 MG TABLET PO (08:13)
[2024-03-15] MEDS: Famotidine 20 MG TABLET PO (08:13)
[2024-03-15] MEDS: modafiniL 100 MG TABLET PO (08:13)
[2024-03-15] MEDS: Cholecalciferol (Vitamin D3) 25 MCG TABLET PO (08:13)
--- NOTE | 2024-03-15 08:59 | HO.PSYCHPN ---
Subjective Subjective Date of Service: 03/15/24 Reason For Visit: Schizoaffective disorder, unspecified type Subjective Notes: Section 8 Interim History: Pt slept through the night. He is mostly in bed, minimally interacting with peers. Needs encouragement to get out of the room, have enough fluids. No SI/HI. severe poverty of thought. Minimally verbal. avoids interactions. Review of Systems Review of Systems Constipation improving Yes all other systems are reviewed and are negative and Unobtainable due to mental status Mental Status Exam Mental Status Exam Patient Appearance: Appropriate Patient Orientation: Person and Situation Level of Consciousness: Awake Patient Behavior: Guarded and Passive Mood Description: Withdrawn Affect Description: Constricted Patient Cognition Impaired: Yes Ability to Follow Directions: Fair Speech Pattern: Clear Diagnostics Vital Signs (24Hr): Vital Signs - 24 hr 03/14/24 20:00 Temperature 98.4 F Pulse Rate 73 Respiratory Rate 17 Blood Pressure 90/62 Pulse Oximetry 97 Oxygen Delivery Method Room Air BMI result Body Mass Index 17.6 Labs 03/09/24 10:51 03/09/24 10:51 Imaging Radiology Impressions: ITS Impressions Chest X-Ray 11/14/23 15:16 IMPRESSION: No evidence of acute disease. No pulmonary mass, pneumonia or pleural effusion. Chest CT 12/21/23 14:32 IMPRESSION: 1. No focal infiltrate is seen. 2. A 4 mm noncalcified subpleural nodule is seen within the posterior segment of the right upper lobe. According to the UPDATED 2017 Fleischner Society recommendations, the advised follow-up imaging for solid nodules < 6 mm is: LOW RISK PATIENT: No routine follow-up. HIGH RISK PATIENT: Optional CT at 12 months. 3. There is no thoracic lymphadenopathy or pleural effusion. 4. There is a marked kyphoscoliosis. No acute or aggressive osseous lesion is seen. 5. There is mild cholelithiasis. Fleischner guidelines were followed. KUB X-Ray 01/17/24 10:57 IMPRESSION: Multiple prominent, distended air-filled loops of small and large bowel. [id number] amount of stool in the colon. Correlation with clinical exam recommended to determine further management including possible additional imaging with CT scan of the abdomen and pelvis if abdominal pathology is suspected. This study was presented today January 19, 2024 for interpretation. Stat results provided at this time as requested by referring provider. Medications Medications Current Medications Cyanocobalamin (Cyanocobalamin (Vitamin B-12) 1,000 Mcg Tablet) 1,000 mcg PO DAILY [facility] Last Admin: 03/15/24 08:13 Dose: 1,000 mcg Famotidine (Famotidine 20 Mg Tablet) 20 mg PO DAILY [facility] Last Admin: 03/15/24 08:13 Dose: 20 mg Loperamide HCl (Loperamide Hcl 2 Mg Capsule) 2 mg PO Q4H PRN PRN Reason: loose stools Last Admin: 01/13/24 15:22 Dose: 2 mg Magnesium Hydroxide (Milk Of Magnesia 30 Ml Oral.Susp) 30 ml PO BID PRN PRN Reason: Constipation Last Admin: 03/14/24 03:41 Dose: 30 ml Memantine (Memantine Hcl 5 Mg Tablet) 5 mg PO BID [facility] Last Admin: 03/15/24 08:13 Dose: 5 mg Midodrine (Midodrine Hcl 10 Mg Tablet) 10 mg PO TID@0600,1200,1800 [facility] Last Admin: 03/15/24 05:59 Dose: 10 mg Mirtazapine (Mirtazapine 7.5 Mg Tablet) 7.5 mg PO BEDTIME [facility] Last Admin: 03/14/24 21:18 Dose: 7.5 mg Modafinil (Modafinil 100 Mg Tablet) 100 mg PO DAILY [facility] Last Admin: 03/15/24 08:13 Dose: 100 mg Polyethylene Glycol (Polyethylene Glycol 3350 17 Gm Powd.Pack) 17 gm PO DAILY PRN PRN Reason: contipation Last Admin: 03/14/24 08:50 Dose: 17 gm Risperidone (Risperidone 2 Mg Tablet) 2 mg PO BEDTIME [facility] Last Admin: 03/14/24 21:18 Dose: 2 mg Senna (Sennosides 8.6 Mg Tablet) 8.6 mg PO BEDTIME [facility] Last Admin: 03/14/24 21:18 Dose: 8.6 mg Vitamin D (Cholecalciferol (Vitamin D3) 25 Mcg Tablet) 25 mcg PO DAILY [facility] Last Admin: 03/15/24 08:13 Dose: 25 mcg Vortioxetine (Vortioxetine Hydrobromide 5 Mg Tablet) 5 mg PO DAILY [facility] Last Admin: 03/15/24 08:13 Dose: 5 mg Allergies Allergies Allergy/AdvReac Type Severity Reaction Status Date / Time omeprazole Allergy Unknown Verified 10/30/23 00:09 Assessment & Plan Assessment & Plan (1) Schizophrenia: Status: Acute Code(s): F20.9 - Schizophrenia, unspecified (2) Failure to thrive in adult: Status: Acute Code(s): R62.7 - Adult failure to thrive Plan The patient is a 63-year-old male with a past history of schizophrenia who had been in and out of several facilities in the last year with severe hypoactive behavior, catatonic like symptoms and chronic noncompliance who needed to go for Section 7 and 8 for ECT. Even though that he had been treated with antipsychotics he remains still internally preoccupied. Plan 01/22/2024: No changes to current plan. Will add MiraLax 01/22: no changes 01/23 continue tx 01/24 continue tx. 01/25 continue tx 01/27 continue tx. 01/28: Continue current regimen and plans 01/29: Continue current regimen and plans. 01/30 continue tx. awaiting guardianship. 01/31 continue tx. 02/01 continue tx. 02/02 continue tx. 02/03 continue tx. 02/06 continue tx. 02/08: stable presentation. continue current mgmt. 02/09: no change 02/10: no change 02/11 continue same treatment 02/12 continue same treatment 02/13 continue tx. 02/14 continue tx. 02/15 continue tx 02/17 continue same treatment 02/18: appears slightly more wakeful and energetic than last time this selling underwriter met with pt. continue current mgmt. 02/19: as per yesterday. 02/20 continue tx. 02/21 continue tx. 02/22 continue tx. 02/24 continue tx. 02/25 no change ? worsening- follow vs get labs if continues to refuse food/hydration 02/27 continue tx. 02/28 continue tx. 03/02: slowed, appears tired/fatigued. poor PO intake. continue current mgmt. 03/03 continue tx. 03/04: continue current management and treatment plan. 03/05: Continue current management and treatment plan. 03/06: Continue current management and treatment plan. 03/07 continue tx. 03/10 cmp elevation in BUN, cr at baseline. BP low even with midodrine, may benefit from IV fluids if refuses increase fluid intake. 03/11 keep same treatment 9/8 keep same treatment 03/13 continue tx. 03/14 continue tx. 03/15 continue tx. Reason for continued inpatient stay Substantial Risk for: inability to function Time Spent With Patient Time: Total time managing care of this patient today ____ minutes.
--- NOTE | 2024-03-15 14:48 | MHC.CLN ---
F/U DIET=REGULAR, SAFETY TRAY. ENSURE TID PROVIDES 1050 KCALS, 60 G PROTEIN. PATIENT ACCEPTS SUPPLEMENT. ACCEPTS ENSURE. VARIABLE INTAKE AT MEALS, MOSTLY BITES TO 50%. CONTINUE CURRENT DIET, SUPPLEMENTS AND ENCOURAGE INTAKE ABLE. RD TO FOLLOW UP WEEKLY.
[2024-03-15 20:00] VITALS: BP 109/75; PULSE 87; RESP 18; TEMP 36.1; O2SAT 97
[2024-03-15] MEDS: Mirtazapine 7.5 MG TABLET PO (20:40)
[2024-03-15] MEDS: Sennosides 8.6 MG TABLET PO (20:40)
[2024-03-15] MEDS: risperiDONE 2 MG TABLET PO (20:40)
[2024-03-16] MEDS: Midodrine HCl 10 MG TABLET PO ×3 (06:26→18:17)
[2024-03-16 08:05] VITALS: BP 92/57; PULSE 64; RESP 18; TEMP 36.6; O2SAT 98
[2024-03-16] MEDS: Famotidine 20 MG TABLET PO (08:23)
[2024-03-16] MEDS: Memantine HCl 5 MG TABLET PO ×2 (08:23→20:34)
[2024-03-16] MEDS: Cholecalciferol (Vitamin D3) 25 MCG TABLET PO (08:23)
[2024-03-16] MEDS: modafiniL 100 MG TABLET PO (08:23)
[2024-03-16] MEDS: Cyanocobalamin (Vitamin B-12) 1,000 MCG TABLET 1000 MCG PO (08:23)
[2024-03-16] MEDS: Vortioxetine Hydrobromide 5 MG TABLET PO (08:23)
--- NOTE | 2024-03-16 08:56 | P.PNPSI_ITS ---
Subjective Subjective Date of Service: 03/16/24 Reason For Visit: Schizoaffective disorder, unspecified type Subjective Notes: Conditional Voluntary Interim History: Pt slept through the night. He is mostly in bed, minimally interacting with peers. Needs encouragement to get out of the room, have enough fluids. No SI/HI. severe poverty of thought. Minimally verbal. avoids interactions. Review of Systems Review of Systems Constipation improving Yes all other systems are reviewed and are negative and Unobtainable due to mental status Mental Status Exam Mental Status Exam Patient Appearance: Appropriate Patient Orientation: Person and Place Level of Consciousness: Awake Patient Behavior: Guarded and Passive Mood Description: Withdrawn Affect Description: Constricted Patient Cognition Impaired: Yes Ability to Follow Directions: Fair Speech Pattern: Clear and Spontaneous Speech (minimally spontaneous) Judgement and Insight: impaired x 2. Diagnostics Vital Signs (24Hr): Vital Signs - 24 hr 03/15/24 20:00 Temperature 97 F Pulse Rate 87 Respiratory Rate 18 Blood Pressure 109/75 Pulse Oximetry 97 Oxygen Delivery Method Room Air BMI result Body Mass Index 17.6 Labs 03/09/24 10:51 03/09/24 10:51 Imaging Radiology Impressions: ITS Impressions Chest X-Ray 11/14/23 15:16 IMPRESSION: No evidence of acute disease. No pulmonary mass, pneumonia or pleural effusion. Chest CT 12/21/23 14:32 IMPRESSION: 1. No focal infiltrate is seen. 2. A 4 mm noncalcified subpleural nodule is seen within the posterior segment of the right upper lobe. According to the UPDATED 2017 Fleischner Society recommendations, the advised follow-up imaging for solid nodules < 6 mm is: LOW RISK PATIENT: No routine follow-up. HIGH RISK PATIENT: Optional CT at 12 months. 3. There is no thoracic lymphadenopathy or pleural effusion. 4. There is a marked kyphoscoliosis. No acute or aggressive osseous lesion is seen. 5. There is mild cholelithiasis. Fleischner guidelines were followed. KUB X-Ray 01/17/24 10:57 IMPRESSION: Multiple prominent, distended air-filled loops of small and large bowel. [id number] amount of stool in the colon. Correlation with clinical exam recommended to determine further management including possible additional imaging with CT scan of the abdomen and pelvis if abdominal pathology is suspected. This study was presented today January 19, 2024 for interpretation. Stat results provided at this time as requested by referring provider. Medications Medications Current Medications Cyanocobalamin (Cyanocobalamin (Vitamin B-12) 1,000 Mcg Tablet) 1,000 mcg PO DAILY [facility] Last Admin: 03/16/24 08:23 Dose: 1,000 mcg Famotidine (Famotidine 20 Mg Tablet) 20 mg PO DAILY [facility] Last Admin: 03/16/24 08:23 Dose: 20 mg Loperamide HCl (Loperamide Hcl 2 Mg Capsule) 2 mg PO Q4H PRN PRN Reason: loose stools Last Admin: 01/13/24 15:22 Dose: 2 mg Magnesium Hydroxide (Milk Of Magnesia 30 Ml Oral.Susp) 30 ml PO BID PRN PRN Reason: Constipation Last Admin: 03/14/24 03:41 Dose: 30 ml Memantine (Memantine Hcl 5 Mg Tablet) 5 mg PO BID [facility] Last Admin: 03/16/24 08:23 Dose: 5 mg Midodrine (Midodrine Hcl 10 Mg Tablet) 10 mg PO TID@0600,1200,1800 [facility] Last Admin: 03/16/24 06:26 Dose: 10 mg Mirtazapine (Mirtazapine 7.5 Mg Tablet) 7.5 mg PO BEDTIME [facility] Last Admin: 03/15/24 20:40 Dose: 7.5 mg Modafinil (Modafinil 100 Mg Tablet) 100 mg PO DAILY [facility] Last Admin: 03/16/24 08:23 Dose: 100 mg Polyethylene Glycol (Polyethylene Glycol 3350 17 Gm Powd.Pack) 17 gm PO DAILY PRN PRN Reason: contipation Last Admin: 03/14/24 08:50 Dose: 17 gm Risperidone (Risperidone 2 Mg Tablet) 2 mg PO BEDTIME [facility] Last Admin: 03/15/24 20:40 Dose: 2 mg Senna (Sennosides 8.6 Mg Tablet) 8.6 mg PO BEDTIME [facility] Last Admin: 03/15/24 20:40 Dose: 8.6 mg Vitamin D (Cholecalciferol (Vitamin D3) 25 Mcg Tablet) 25 mcg PO DAILY [facility] Last Admin: 03/16/24 08:23 Dose: 25 mcg Vortioxetine (Vortioxetine Hydrobromide 5 Mg Tablet) 5 mg PO DAILY [facility] Last Admin: 03/16/24 08:23 Dose: 5 mg Allergies Allergies Allergy/AdvReac Type Severity Reaction Status Date / Time omeprazole Allergy Unknown Verified 10/30/23 00:09 Assessment & Plan Assessment & Plan (1) Schizophrenia: Status: Acute Code(s): F20.9 - Schizophrenia, unspecified (2) Failure to thrive in adult: Status: Acute Code(s): R62.7 - Adult failure to thrive Plan The patient is a 63-year-old male with a past history of schizophrenia who had been in and out of several facilities in the last year with severe hypoactive behavior, catatonic like symptoms and chronic noncompliance who needed to go for Section 7 and 8 for ECT. Even though that he had been treated with antipsychotics he remains still internally preoccupied. Plan 01/22/2024: No changes to current plan. Will add MiraLax 01/22: no changes 01/23 continue tx 01/24 continue tx. 01/25 continue tx 01/27 continue tx. 01/28: Continue current regimen and plans 01/29: Continue current regimen and plans. 01/30 continue tx. awaiting guardianship. 01/31 continue tx. 02/01 continue tx. 02/02 continue tx. 02/03 continue tx. 02/06 continue tx. 02/08: stable presentation. continue current mgmt. 02/09: no change 02/10: no change 02/11 continue same treatment 02/12 continue same treatment 02/13 continue tx. 02/14 continue tx. 02/15 continue tx 02/17 continue same treatment 02/18: appears slightly more wakeful and energetic than last time this ad copy writer met with pt. continue current mgmt. 02/19: as per yesterday. 02/20 continue tx. 02/21 continue tx. 02/22 continue tx. 02/24 continue tx. 02/25 no change ? worsening- follow vs get labs if continues to refuse food/hydration 02/27 continue tx. 02/28 continue tx. 03/02: slowed, appears tired/fatigued. poor PO intake. continue current mgmt. 03/03 continue tx. 03/04: continue current management and treatment plan. 03/05: Continue current management and treatment plan. 03/06: Continue current management and treatment plan. 03/07 continue tx. 03/10 cmp elevation in BUN, cr at baseline. BP low even with midodrine, may benefit from IV fluids if refuses increase fluid intake. 03/11 keep same treatment 03/12 keep same treatment 03/13 continue tx. 03/14 continue tx. 03/15 continue tx. 03/16 add am dose of risperidone 0.5mg po daily. Reason for continued inpatient stay Substantial Risk for: inability to function Time Spent With Patient Time: Total time managing care of this patient today ____ minutes.
[2024-03-16 10:29] VITALS: BMI 18.0
[2024-03-16 18:15] VITALS: BP 98/62
[2024-03-16 20:00] VITALS: BP 89/60; PULSE 73; RESP 16; TEMP 36.5; O2SAT 95
[2024-03-16] MEDS: Mirtazapine 7.5 MG TABLET PO (20:34)
[2024-03-16] MEDS: Sennosides 8.6 MG TABLET PO (20:34)
[2024-03-16] MEDS: risperiDONE 2 MG TABLET PO (20:34)
[2024-03-17] MEDS: Midodrine HCl 10 MG TABLET PO ×3 (05:47→17:17)
[2024-03-17 06:01] VITALS: BP 73/49; PULSE 58
[2024-03-17 06:44] VITALS: BP 111/79; PULSE 97
--- NOTE | 2024-03-17 08:47 | HO.PSYCHPN ---
Subjective Subjective Date of Service: 03/17/24 Reason For Visit: Schizoaffective disorder, unspecified type Subjective Notes: Section 8 Interim History: Pt slept through the night. He is mostly in bed, minimally interacting with peers. Needs encouragement to get out of the room, have enough fluids. No SI/HI. severe poverty of thought. Minimally verbal. avoids interactions. continues to talk about having a trailer outside of the hospital. Review of Systems Review of Systems Constipation improving Yes all other systems are reviewed and are negative and Unobtainable due to mental status Mental Status Exam Mental Status Exam Patient Appearance: Appropriate Patient Orientation: Person and Place Level of Consciousness: Awake Patient Behavior: Guarded and Passive Mood Description: Withdrawn Affect Description: Constricted Patient Cognition Impaired: Yes Ability to Follow Directions: Fair Speech Pattern: Clear and Spontaneous Speech (minimally spontaneous) Diagnostics Vital Signs (24Hr): Vital Signs - 24 hr 03/16/24 18:15 03/16/24 20:00 03/17/24 06:01 Temperature 97.7 F Pulse Rate 73 58 Respiratory Rate 16 Blood Pressure 98/62 89/60 L 73/49 L Pulse Oximetry 95 Oxygen Delivery Method Room Air 03/17/24 06:44 Temperature Pulse Rate 97 Respiratory Rate Blood Pressure 111/79 Pulse Oximetry Oxygen Delivery Method BMI result Body Mass Index 18.0 Labs 03/09/24 10:51 03/09/24 10:51 Imaging Radiology Impressions: ITS Impressions Chest X-Ray 11/14/23 15:16 IMPRESSION: No evidence of acute disease. No pulmonary mass, pneumonia or pleural effusion. Chest CT 12/21/23 14:32 IMPRESSION: 1. No focal infiltrate is seen. 2. A 4 mm noncalcified subpleural nodule is seen within the posterior segment of the right upper lobe. According to the UPDATED 2017 Fleischner Society recommendations, the advised follow-up imaging for solid nodules < 6 mm is: LOW RISK PATIENT: No routine follow-up. HIGH RISK PATIENT: Optional CT at 12 months. 3. There is no thoracic lymphadenopathy or pleural effusion. 4. There is a marked kyphoscoliosis. No acute or aggressive osseous lesion is seen. 5. There is mild cholelithiasis. Fleischner guidelines were followed. KUB X-Ray 01/17/24 10:57 IMPRESSION: Multiple prominent, distended air-filled loops of small and large bowel. [id number] amount of stool in the colon. Correlation with clinical exam recommended to determine further management including possible additional imaging with CT scan of the abdomen and pelvis if abdominal pathology is suspected. This study was presented today January 19, 2024 for interpretation. Stat results provided at this time as requested by referring provider. Medications Medications Current Medications Cyanocobalamin (Cyanocobalamin (Vitamin B-12) 1,000 Mcg Tablet) 1,000 mcg PO DAILY [facility] Last Admin: 03/16/24 08:23 Dose: 1,000 mcg Famotidine (Famotidine 20 Mg Tablet) 20 mg PO DAILY [facility] Last Admin: 03/16/24 08:23 Dose: 20 mg Loperamide HCl (Loperamide Hcl 2 Mg Capsule) 2 mg PO Q4H PRN PRN Reason: loose stools Last Admin: 01/13/24 15:22 Dose: 2 mg Magnesium Hydroxide (Milk Of Magnesia 30 Ml Oral.Susp) 30 ml PO BID PRN PRN Reason: Constipation Last Admin: 03/14/24 03:41 Dose: 30 ml Memantine (Memantine Hcl 5 Mg Tablet) 5 mg PO BID [facility] Last Admin: 03/16/24 20:34 Dose: 5 mg Midodrine (Midodrine Hcl 10 Mg Tablet) 10 mg PO TID@0600,1200,1800 [facility] Last Admin: 03/17/24 05:47 Dose: 10 mg Mirtazapine (Mirtazapine 7.5 Mg Tablet) 7.5 mg PO BEDTIME [facility] Last Admin: 03/16/24 20:34 Dose: 7.5 mg Modafinil (Modafinil 100 Mg Tablet) 100 mg PO DAILY [facility] Last Admin: 03/16/24 08:23 Dose: 100 mg Polyethylene Glycol (Polyethylene Glycol 3350 17 Gm Powd.Pack) 17 gm PO DAILY PRN PRN Reason: contipation Last Admin: 03/14/24 08:50 Dose: 17 gm Risperidone (Risperidone 2 Mg Tablet) 2 mg PO BEDTIME [facility] Last Admin: 03/16/24 20:34 Dose: 2 mg Risperidone (Risperidone 0.5 Mg Tablet) 0.5 mg PO DAILY [facility] Senna (Sennosides 8.6 Mg Tablet) 8.6 mg PO BEDTIME [facility] Last Admin: 03/16/24 20:34 Dose: 8.6 mg Vitamin D (Cholecalciferol (Vitamin D3) 25 Mcg Tablet) 25 mcg PO DAILY [facility] Last Admin: 03/16/24 08:23 Dose: 25 mcg Vortioxetine (Vortioxetine Hydrobromide 5 Mg Tablet) 5 mg PO DAILY [facility] Last Admin: 03/16/24 08:23 Dose: 5 mg Allergies Allergies Allergy/AdvReac Type Severity Reaction Status Date / Time omeprazole Allergy Unknown Verified 10/30/23 00:09 Assessment & Plan Assessment & Plan (1) Schizophrenia: Status: Acute Code(s): F20.9 - Schizophrenia, unspecified (2) Failure to thrive in adult: Status: Acute Code(s): R62.7 - Adult failure to thrive Plan The patient is a 63-year-old male with a past history of schizophrenia who had been in and out of several facilities in the last year with severe hypoactive behavior, catatonic like symptoms and chronic noncompliance who needed to go for Section 7 and 8 for ECT. Even though that he had been treated with antipsychotics he remains still internally preoccupied. Plan 01/22/2024: No changes to current plan. Will add MiraLax 01/22: no changes 01/23 continue tx 01/24 continue tx. 01/25 continue tx 01/27 continue tx. 01/28: Continue current regimen and plans 01/29: Continue current regimen and plans. 01/30 continue tx. awaiting guardianship. 01/31 continue tx. 02/01 continue tx. 02/02 continue tx. 02/03 continue tx. 02/06 continue tx. 02/08: stable presentation. continue current mgmt. 02/09: no change 02/10: no change 02/11 continue same treatment 02/12 continue same treatment 02/13 continue tx. 02/14 continue tx. 02/15 continue tx 02/17 continue same treatment 02/18: appears slightly more wakeful and energetic than last time this grant writer met with pt. continue current mgmt. 02/19: as per yesterday. 02/20 continue tx. 02/21 continue tx. 02/22 continue tx. 02/24 continue tx. 02/25 no change ? worsening- follow vs get labs if continues to refuse food/hydration 02/27 continue tx. 02/28 continue tx. 03/02: slowed, appears tired/fatigued. poor PO intake. continue current mgmt. 03/03 continue tx. 03/04: continue current management and treatment plan. 03/05: Continue current management and treatment plan. 03/06: Continue current management and treatment plan. 03/07 continue tx. 03/10 cmp elevation in BUN, cr at baseline. BP low even with midodrine, may benefit from IV fluids if refuses increase fluid intake. 03/11 keep same treatment 03/12 keep same treatment 03/13 continue tx. 03/14 continue tx. 03/15 continue tx. 03/16 add am dose of risperidone 0.5mg po daily. 03/17 continue tx. Reason for continued inpatient stay Substantial Risk for: inability to function Time Spent With Patient Time: Total time managing care of this patient today ____ minutes.
[2024-03-17 08:58] VITALS: BP 90/62; PULSE 75; RESP 18; TEMP 35.9; O2SAT 96
[2024-03-17] MEDS: modafiniL 100 MG TABLET PO (09:25)
[2024-03-17] MEDS: Vortioxetine Hydrobromide 5 MG TABLET PO (09:25)
[2024-03-17] MEDS: risperiDONE 0.5 MG TABLET PO (09:25)
[2024-03-17] MEDS: Cyanocobalamin (Vitamin B-12) 1,000 MCG TABLET 1000 MCG PO (09:25)
[2024-03-17] MEDS: Memantine HCl 5 MG TABLET PO ×2 (09:25→20:43)
[2024-03-17] MEDS: Cholecalciferol (Vitamin D3) 25 MCG TABLET PO (09:25)
[2024-03-17] MEDS: Famotidine 20 MG TABLET PO (09:25)
[2024-03-17 11:39] VITALS: BP 100/73
[2024-03-17 17:16] VITALS: BP 94/59
[2024-03-17 20:00] VITALS: BP 89/51; PULSE 63; RESP 16; TEMP 36.3; O2SAT 96
[2024-03-17] MEDS: Sennosides 8.6 MG TABLET PO (20:43)
[2024-03-17] MEDS: risperiDONE 2 MG TABLET PO (20:43)
[2024-03-17] MEDS: Mirtazapine 7.5 MG TABLET PO (20:43)
[2024-03-18] MEDS: Midodrine HCl 10 MG TABLET PO ×3 (06:25→18:07)
[2024-03-18 08:00] VITALS: BP 97/59; PULSE 83; RESP 18; TEMP 36.6; O2SAT 97
[2024-03-18] MEDS: Vortioxetine Hydrobromide 5 MG TABLET PO (08:58)
[2024-03-18] MEDS: Cholecalciferol (Vitamin D3) 25 MCG TABLET PO (08:58)
[2024-03-18] MEDS: risperiDONE 0.5 MG TABLET PO (08:58)
[2024-03-18] MEDS: Memantine HCl 5 MG TABLET PO ×2 (08:58→20:08)
[2024-03-18] MEDS: Cyanocobalamin (Vitamin B-12) 1,000 MCG TABLET 1000 MCG PO (08:58)
[2024-03-18] MEDS: Famotidine 20 MG TABLET PO (08:58)
[2024-03-18] MEDS: modafiniL 100 MG TABLET PO (08:58)
--- NOTE | 2024-03-18 09:26 | P.PNPSI_ITS ---
Subjective Subjective Date of Service: 03/18/24 Reason For Visit: Schizoaffective disorder, unspecified type Subjective Notes: Section 8 Interim History: Pt slept through the night. He is mostly in bed, minimally interacting with peers. Needs encouragement to get out of the room, have enough fluids. No SI/HI. severe poverty of thought. Minimally verbal. avoids interactions. continues to talk about having a trailer outside of the hospital. Review of Systems Review of Systems Constipation improving Yes all other systems are reviewed and are negative and Unobtainable due to mental status Mental Status Exam Mental Status Exam Patient Appearance: Appropriate Patient Orientation: Person and Place Level of Consciousness: Awake Patient Behavior: Guarded and Passive Mood Description: Withdrawn Affect Description: Constricted Patient Cognition Impaired: Yes Ability to Follow Directions: Fair Speech Pattern: Clear and Spontaneous Speech (minimally spontaneous) Diagnostics Vital Signs (24Hr): Vital Signs - 24 hr 03/17/24 11:39 03/17/24 17:16 03/17/24 20:00 Temperature 97.4 F Pulse Rate 63 Respiratory Rate 16 Blood Pressure 100/73 94/59 L 89/51 L Pulse Oximetry 96 Oxygen Delivery Method Room Air BMI result Body Mass Index 18.0 Labs 03/09/24 10:51 03/09/24 10:51 Imaging Radiology Impressions: ITS Impressions Chest X-Ray 11/14/23 15:16 IMPRESSION: No evidence of acute disease. No pulmonary mass, pneumonia or pleural effusion. Chest CT 12/21/23 14:32 IMPRESSION: 1. No focal infiltrate is seen. 2. A 4 mm noncalcified subpleural nodule is seen within the posterior segment of the right upper lobe. According to the UPDATED 2017 Fleischner Society recommendations, the advised follow-up imaging for solid nodules < 6 mm is: LOW RISK PATIENT: No routine follow-up. HIGH RISK PATIENT: Optional CT at 12 months. 3. There is no thoracic lymphadenopathy or pleural effusion. 4. There is a marked kyphoscoliosis. No acute or aggressive osseous lesion is seen. 5. There is mild cholelithiasis. Fleischner guidelines were followed. KUB X-Ray 01/17/24 10:57 IMPRESSION: Multiple prominent, distended air-filled loops of small and large bowel. [id number] amount of stool in the colon. Correlation with clinical exam recommended to determine further management including possible additional imaging with CT scan of the abdomen and pelvis if abdominal pathology is suspected. This study was presented today January 19, 2024 for interpretation. Stat results provided at this time as requested by referring provider. Medications Medications Current Medications Cyanocobalamin (Cyanocobalamin (Vitamin B-12) 1,000 Mcg Tablet) 1,000 mcg PO DAILY [facility] Last Admin: 03/18/24 08:58 Dose: 1,000 mcg Famotidine (Famotidine 20 Mg Tablet) 20 mg PO DAILY [facility]Y Last Admin: 03/18/24 08:58 Dose: 20 mg Loperamide HCl (Loperamide Hcl 2 Mg Capsule) 2 mg PO Q4H PRN PRN Reason: loose stools Last Admin: 01/13/24 15:22 Dose: 2 mg Magnesium Hydroxide (Milk Of Magnesia 30 Ml Oral.Susp) 30 ml PO BID PRN PRN Reason: Constipation Last Admin: 03/14/24 03:41 Dose: 30 ml Memantine (Memantine Hcl 5 Mg Tablet) 5 mg PO BID [facility] Last Admin: 03/18/24 08:58 Dose: 5 mg Midodrine (Midodrine Hcl 10 Mg Tablet) 10 mg PO TID@0600,1200,1800 [facility] Last Admin: 03/18/24 06:25 Dose: 10 mg Mirtazapine (Mirtazapine 7.5 Mg Tablet) 7.5 mg PO BEDTIME [facility]Y Last Admin: 03/17/24 20:43 Dose: 7.5 mg Modafinil (Modafinil 100 Mg Tablet) 100 mg PO DAILY [facility] Last Admin: 03/18/24 08:58 Dose: 100 mg Polyethylene Glycol (Polyethylene Glycol 3350 17 Gm Powd.Pack) 17 gm PO DAILY PRN PRN Reason: contipation Last Admin: 03/14/24 08:50 Dose: 17 gm Risperidone (Risperidone 2 Mg Tablet) 2 mg PO BEDTIME YESY Last Admin: 03/17/24 20:43 Dose: 2 mg Risperidone (Risperidone 0.5 Mg Tablet) 0.5 mg PO DAILY [facility] Last Admin: 03/18/24 08:58 Dose: 0.5 mg Senna (Sennosides 8.6 Mg Tablet) 8.6 mg PO BEDTIME YESY Last Admin: 03/17/24 20:43 Dose: 8.6 mg Vitamin D (Cholecalciferol (Vitamin D3) 25 Mcg Tablet) 25 mcg PO DAILY [facility] Last Admin: 03/18/24 08:58 Dose: 25 mcg Vortioxetine (Vortioxetine Hydrobromide 5 Mg Tablet) 5 mg PO DAILY [facility] Last Admin: 03/18/24 08:58 Dose: 5 mg Allergies Allergies Allergy/AdvReac Type Severity Reaction Status Date / Time omeprazole Allergy Unknown Verified 10/30/23 00:09 Assessment & Plan Assessment & Plan (1) Schizophrenia: Status: Acute Code(s): F20.9 - Schizophrenia, unspecified (2) Failure to thrive in adult: Status: Acute Code(s): R62.7 - Adult failure to thrive Plan The patient is a 63-year-old male with a past history of schizophrenia who had been in and out of several facilities in the last year with severe hypoactive behavior, catatonic like symptoms and chronic noncompliance who needed to go for Section 7 and 8 for ECT. Even though that he had been treated with antipsychotics he remains still internally preoccupied. Plan 01/22/2024: No changes to current plan. Will add MiraLax 01/22: no changes 01/23 continue tx 01/24 continue tx. 01/25 continue tx 01/27 continue tx. 01/28: Continue current regimen and plans 01/29: Continue current regimen and plans. 01/30 continue tx. awaiting guardianship. 01/31 continue tx. 02/01 continue tx. 02/02 continue tx. 02/03 continue tx. 02/06 continue tx. 02/08: stable presentation. continue current mgmt. 02/09: no change 02/10: no change 02/11 continue same treatment 02/12 continue same treatment 02/13 continue tx. 02/14 continue tx. 02/15 continue tx 02/17 continue same treatment 02/18: appears slightly more wakeful and energetic than last time this global technical writer met with pt. continue current mgmt. 02/19: as per yesterday. 02/20 continue tx. 02/21 continue tx. 02/22 continue tx. 02/24 continue tx. 02/25 no change ? worsening- follow vs get labs if continues to refuse food/hydration 02/27 continue tx. 02/28 continue tx. 03/02: slowed, appears tired/fatigued. poor PO intake. continue current mgmt. 03/03 continue tx. 8/31: continue current management and treatment plan. 03/05: Continue current management and treatment plan. 03/06: Continue current management and treatment plan. 03/07 continue tx. 03/10 cmp elevation in BUN, cr at baseline. BP low even with midodrine, may benefit from IV fluids if refuses increase fluid intake. 03/11 keep same treatment 03/12 keep same treatment 03/13 continue tx. 03/14 continue tx. 03/15 continue tx. 03/16 add am dose of risperidone 0.5mg po daily. 03/17 continue tx. 03/18 continue tx. Reason for continued inpatient stay Substantial Risk for: inability to function Time Spent With Patient Time: Total time managing care of this patient today ____ minutes.
[2024-03-18 18:05] VITALS: BP 90/58
[2024-03-18 20:00] VITALS: BP 88/61; PULSE 81; RESP 16; TEMP 36.8; O2SAT 95
[2024-03-18] MEDS: Mirtazapine 7.5 MG TABLET PO (20:07)
[2024-03-18] MEDS: risperiDONE 2 MG TABLET PO (20:08)
[2024-03-18] MEDS: Sennosides 8.6 MG TABLET PO (20:08)
[2024-03-19] MEDS: Midodrine HCl 10 MG TABLET PO ×3 (06:28→17:35)
[2024-03-19 06:47] VITALS: BP 94/56
[2024-03-19 08:00] VITALS: BP 111/76; PULSE 72; RESP 18; TEMP 36.6; O2SAT 98
[2024-03-19] MEDS: risperiDONE 0.5 MG TABLET PO (08:45)
[2024-03-19] MEDS: Cyanocobalamin (Vitamin B-12) 1,000 MCG TABLET 1000 MCG PO (08:45)
[2024-03-19] MEDS: Vortioxetine Hydrobromide 5 MG TABLET PO (08:45)
[2024-03-19] MEDS: modafiniL 100 MG TABLET PO (08:45)
[2024-03-19] MEDS: Famotidine 20 MG TABLET PO (08:45)
[2024-03-19] MEDS: Cholecalciferol (Vitamin D3) 25 MCG TABLET PO (08:46)
[2024-03-19] MEDS: Memantine HCl 5 MG TABLET PO ×2 (08:46→20:45)
--- NOTE | 2024-03-19 11:21 | HO.PSYCHPN ---
Subjective Subjective Date of Service: 03/19/24 Reason For Visit: Schizoaffective disorder, unspecified type Interim History: Pt slept through the night. He is mostly in bed, minimally interacting with peers. Needs encouragement to get out of the room, have enough fluids. No SI/HI. severe poverty of thought. Minimally verbal. avoids interactions. continues to talk about having a trailer outside of the hospital. Review of Systems Review of Systems Constipation improving Yes all other systems are reviewed and are negative and Unobtainable due to mental status Mental Status Exam Mental Status Exam Patient Appearance: Appropriate Patient Orientation: Person and Place Level of Consciousness: Awake Patient Behavior: Guarded and Passive Mood Description: Withdrawn Affect Description: Constricted Patient Cognition Impaired: Yes Ability to Follow Directions: Fair Speech Pattern: Clear and Spontaneous Speech (minimally spontaneous) Diagnostics Vital Signs (24Hr): Vital Signs - 24 hr 03/18/24 18:05 03/18/24 20:00 03/19/24 06:47 Temperature 98.3 F Pulse Rate 81 Respiratory Rate 16 Blood Pressure 90/58 L 88/61 L 94/56 L Pulse Oximetry 95 Oxygen Delivery Method Room Air 03/19/24 08:00 Temperature 97.9 F Pulse Rate 72 Respiratory Rate 18 Blood Pressure 111/76 Pulse Oximetry 98 Oxygen Delivery Method Room Air BMI result Body Mass Index 18.0 Labs 03/09/24 10:51 03/09/24 10:51 Imaging Radiology Impressions: ITS Impressions Chest X-Ray 11/14/23 15:16 IMPRESSION: No evidence of acute disease. No pulmonary mass, pneumonia or pleural effusion. Chest CT 12/21/23 14:32 IMPRESSION: 1. No focal infiltrate is seen. 2. A 4 mm noncalcified subpleural nodule is seen within the posterior segment of the right upper lobe. According to the UPDATED 2017 Fleischner Society recommendations, the advised follow-up imaging for solid nodules < 6 mm is: LOW RISK PATIENT: No routine follow-up. HIGH RISK PATIENT: Optional CT at 12 months. 3. There is no thoracic lymphadenopathy or pleural effusion. 4. There is a marked kyphoscoliosis. No acute or aggressive osseous lesion is seen. 5. There is mild cholelithiasis. Fleischner guidelines were followed. KUB X-Ray 01/17/24 10:57 IMPRESSION: Multiple prominent, distended air-filled loops of small and large bowel. [id number] amount of stool in the colon. Correlation with clinical exam recommended to determine further management including possible additional imaging with CT scan of the abdomen and pelvis if abdominal pathology is suspected. This study was presented today January 19, 2024 for interpretation. Stat results provided at this time as requested by referring provider. Medications Medications Current Medications Cyanocobalamin (Cyanocobalamin (Vitamin B-12) 1,000 Mcg Tablet) 1,000 mcg PO DAILY [facility] Last Admin: 03/19/24 08:45 Dose: 1,000 mcg Famotidine (Famotidine 20 Mg Tablet) 20 mg PO DAILY [facility] Last Admin: 03/19/24 08:45 Dose: 20 mg Loperamide HCl (Loperamide Hcl 2 Mg Capsule) 2 mg PO Q4H PRN PRN Reason: loose stools Last Admin: 01/13/24 15:22 Dose: 2 mg Magnesium Hydroxide (Milk Of Magnesia 30 Ml Oral.Susp) 30 ml PO BID PRN PRN Reason: Constipation Last Admin: 03/14/24 03:41 Dose: 30 ml Memantine (Memantine Hcl 5 Mg Tablet) 5 mg PO BID [facility] Last Admin: 03/19/24 08:46 Dose: 5 mg Midodrine (Midodrine Hcl 10 Mg Tablet) 10 mg PO TID@0600,1200,1800 [facility] Last Admin: 03/19/24 06:28 Dose: 10 mg Mirtazapine (Mirtazapine 7.5 Mg Tablet) 7.5 mg PO BEDTIME [facility] Last Admin: 03/18/24 20:07 Dose: 7.5 mg Modafinil (Modafinil 100 Mg Tablet) 100 mg PO DAILY [facility] Last Admin: 03/19/24 08:45 Dose: 100 mg Polyethylene Glycol (Polyethylene Glycol 3350 17 Gm Powd.Pack) 17 gm PO DAILY PRN PRN Reason: contipation Last Admin: 03/14/24 08:50 Dose: 17 gm Risperidone (Risperidone 2 Mg Tablet) 2 mg PO BEDTIME [facility] Last Admin: 03/18/24 20:08 Dose: 2 mg Risperidone (Risperidone 0.5 Mg Tablet) 0.5 mg PO DAILY [facility] Last Admin: 03/19/24 08:45 Dose: 0.5 mg Senna (Sennosides 8.6 Mg Tablet) 8.6 mg PO BEDTIME [facility] Last Admin: 03/18/24 20:08 Dose: 8.6 mg Vitamin D (Cholecalciferol (Vitamin D3) 25 Mcg Tablet) 25 mcg PO DAILY [facility] Last Admin: 03/19/24 08:46 Dose: 25 mcg Vortioxetine (Vortioxetine Hydrobromide 5 Mg Tablet) 5 mg PO DAILY [facility] Last Admin: 03/19/24 08:45 Dose: 5 mg Allergies Allergies Allergy/AdvReac Type Severity Reaction Status Date / Time omeprazole Allergy Unknown Verified 10/30/23 00:09 Assessment & Plan Assessment & Plan (1) Schizophrenia: Status: Acute Code(s): F20.9 - Schizophrenia, unspecified (2) Failure to thrive in adult: Status: Acute Code(s): R62.7 - Adult failure to thrive Plan The patient is a 63-year-old male with a past history of schizophrenia who had been in and out of several facilities in the last year with severe hypoactive behavior, catatonic like symptoms and chronic noncompliance who needed to go for Section 7 and 8 for ECT. Even though that he had been treated with antipsychotics he remains still internally preoccupied. Plan 01/22/2024: No changes to current plan. Will add MiraLax 01/22: no changes 01/23 continue tx 01/24 continue tx. 01/25 continue tx 01/27 continue tx. 01/28: Continue current regimen and plans 01/29: Continue current regimen and plans. 01/30 continue tx. awaiting guardianship. 01/31 continue tx. 02/01 continue tx. 02/02 continue tx. 02/03 continue tx. 02/06 continue tx. 02/08: stable presentation. continue current mgmt. 02/09: no change 02/10: no change 02/11 continue same treatment 02/12 continue same treatment 02/13 continue tx. 02/14 continue tx. 02/15 continue tx 02/17 continue same treatment 02/18: appears slightly more wakeful and energetic than last time this freelance writer met with pt. continue current mgmt. 02/19: as per yesterday. 02/20 continue tx. 02/21 continue tx. 02/22 continue tx. 02/24 continue tx. 02/25 no change ? worsening- follow vs get labs if continues to refuse food/hydration 02/27 continue tx. 02/28 continue tx. 03/02: slowed, appears tired/fatigued. poor PO intake. continue current mgmt. 03/03 continue tx. 03/04: continue current management and treatment plan. 03/05: Continue current management and treatment plan. 03/06: Continue current management and treatment plan. 03/07 continue tx. 03/10 cmp elevation in BUN, cr at baseline. BP low even with midodrine, may benefit from IV fluids if refuses increase fluid intake. 03/11 keep same treatment 03/12 keep same treatment 03/13 continue tx. 03/14 continue tx. 03/15 continue tx. 03/16 add am dose of risperidone 0.5mg po daily. 03/17 continue tx. 03/18 continue tx. 03/19 increase daily risperidone to 1mg po daily. continue risperidone 2mg po qhs. Reason for continued inpatient stay Substantial Risk for: inability to function Time Spent With Patient Time: Total time managing care of this patient today ____ minutes.
[2024-03-19 17:30] VITALS: BP 96/57
[2024-03-19 20:00] VITALS: BP 103/67; PULSE 84; RESP 16; TEMP 36.6; O2SAT 96
[2024-03-19] MEDS: Mirtazapine 7.5 MG TABLET PO (20:44)
[2024-03-19] MEDS: risperiDONE 2 MG TABLET PO (20:45)
[2024-03-19] MEDS: Sennosides 8.6 MG TABLET PO (20:45)
[2024-03-20] MEDS: Midodrine HCl 10 MG TABLET PO ×3 (06:07→17:37)
[2024-03-20 06:21] VITALS: BP 94/73; PULSE 76; RESP 16; O2SAT 98
[2024-03-20 08:00] VITALS: BP 98/62; PULSE 64; RESP 18; TEMP 36.6; O2SAT 98
[2024-03-20] MEDS: Vortioxetine Hydrobromide 5 MG TABLET PO (08:08)
[2024-03-20] MEDS: risperiDONE 1 MG TABLET PO (08:08)
[2024-03-20] MEDS: Cyanocobalamin (Vitamin B-12) 1,000 MCG TABLET 1000 MCG PO (08:08)
[2024-03-20] MEDS: Cholecalciferol (Vitamin D3) 25 MCG TABLET PO (08:08)
[2024-03-20] MEDS: Famotidine 20 MG TABLET PO (08:08)
[2024-03-20] MEDS: modafiniL 100 MG TABLET PO (08:08)
[2024-03-20] MEDS: Memantine HCl 5 MG TABLET PO ×2 (08:08→21:39)
--- NOTE | 2024-03-20 09:40 | HO.PSYCHPN ---
Subjective Subjective Date of Service: 03/20/24 Reason For Visit: Schizoaffective disorder, unspecified type Interim History: Pt slept through the night. He is mostly in bed, minimally interacting with peers. Needs encouragement to get out of the room, have enough fluids. No SI/HI. severe poverty of thought. Minimally verbal. avoids interactions. continues to talk about having a trailer outside of the hospital. Review of Systems Review of Systems Constipation improving Yes all other systems are reviewed and are negative and Unobtainable due to mental status Mental Status Exam Mental Status Exam Patient Appearance: Appropriate Patient Orientation: Person and Place Level of Consciousness: Awake Patient Behavior: Guarded and Passive Mood Description: Withdrawn Affect Description: Constricted Patient Cognition Impaired: Yes Ability to Follow Directions: Fair Speech Pattern: Clear and Spontaneous Speech (minimally spontaneous) Diagnostics Vital Signs (24Hr): Vital Signs - 24 hr 03/19/24 17:30 03/19/24 20:00 03/20/24 06:21 Temperature 98 F Pulse Rate 84 76 Respiratory Rate 16 16 Blood Pressure 96/57 L 103/67 94/73 Pulse Oximetry 96 98 Oxygen Delivery Method Room Air Room Air 03/20/24 08:00 Temperature 97.9 F Pulse Rate 64 Respiratory Rate 18 Blood Pressure 98/62 Pulse Oximetry 98 Oxygen Delivery Method Room Air BMI result Body Mass Index 18.0 Labs 03/09/24 10:51 03/09/24 10:51 Imaging Radiology Impressions: ITS Impressions Chest X-Ray 11/14/23 15:16 IMPRESSION: No evidence of acute disease. No pulmonary mass, pneumonia or pleural effusion. Chest CT 12/21/23 14:32 IMPRESSION: 1. No focal infiltrate is seen. 2. A 4 mm noncalcified subpleural nodule is seen within the posterior segment of the right upper lobe. According to the UPDATED 2017 Fleischner Society recommendations, the advised follow-up imaging for solid nodules < 6 mm is: LOW RISK PATIENT: No routine follow-up. HIGH RISK PATIENT: Optional CT at 12 months. 3. There is no thoracic lymphadenopathy or pleural effusion. 4. There is a marked kyphoscoliosis. No acute or aggressive osseous lesion is seen. 5. There is mild cholelithiasis. Fleischner guidelines were followed. KUB X-Ray 01/17/24 10:57 IMPRESSION: Multiple prominent, distended air-filled loops of small and large bowel. [id number] amount of stool in the colon. Correlation with clinical exam recommended to determine further management including possible additional imaging with CT scan of the abdomen and pelvis if abdominal pathology is suspected. This study was presented today January 19, 2024 for interpretation. Stat results provided at this time as requested by referring provider. Medications Medications Current Medications Cyanocobalamin (Cyanocobalamin (Vitamin B-12) 1,000 Mcg Tablet) 1,000 mcg PO DAILY [facility] Last Admin: 03/20/24 08:08 Dose: 1,000 mcg Famotidine (Famotidine 20 Mg Tablet) 20 mg PO DAILY [facility] Last Admin: 03/20/24 08:08 Dose: 20 mg Loperamide HCl (Loperamide Hcl 2 Mg Capsule) 2 mg PO Q4H PRN PRN Reason: loose stools Last Admin: 01/13/24 15:22 Dose: 2 mg Magnesium Hydroxide (Milk Of Magnesia 30 Ml Oral.Susp) 30 ml PO BID PRN PRN Reason: Constipation Last Admin: 03/14/24 03:41 Dose: 30 ml Memantine (Memantine Hcl 5 Mg Tablet) 5 mg PO BID [facility] Last Admin: 03/20/24 08:08 Dose: 5 mg Midodrine (Midodrine Hcl 10 Mg Tablet) 10 mg PO TID@0600,1200,1800 [facility] Last Admin: 03/20/24 06:07 Dose: 10 mg Mirtazapine (Mirtazapine 7.5 Mg Tablet) 7.5 mg PO BEDTIME [facility] Last Admin: 03/19/24 20:44 Dose: 7.5 mg Modafinil (Modafinil 100 Mg Tablet) 100 mg PO DAILY [facility] Last Admin: 03/20/24 08:08 Dose: 100 mg Polyethylene Glycol (Polyethylene Glycol 3350 17 Gm Powd.Pack) 17 gm PO DAILY PRN PRN Reason: contipation Last Admin: 03/14/24 08:50 Dose: 17 gm Risperidone (Risperidone 2 Mg Tablet) 2 mg PO BEDTIME [facility]Y Last Admin: 03/19/24 20:45 Dose: 2 mg Risperidone (Risperidone 1 Mg Tablet) 1 mg PO DAILY [facility] Last Admin: 03/20/24 08:08 Dose: 1 mg Senna (Sennosides 8.6 Mg Tablet) 8.6 mg PO BEDTIME [facility]Y Last Admin: 03/19/24 20:45 Dose: 8.6 mg Vitamin D (Cholecalciferol (Vitamin D3) 25 Mcg Tablet) 25 mcg PO DAILY [facility] Last Admin: 03/20/24 08:08 Dose: 25 mcg Vortioxetine (Vortioxetine Hydrobromide 5 Mg Tablet) 5 mg PO DAILY [facility] Last Admin: 03/20/24 08:08 Dose: 5 mg Allergies Allergies Allergy/AdvReac Type Severity Reaction Status Date / Time omeprazole Allergy Unknown Verified 10/30/23 00:09 Assessment & Plan Assessment & Plan (1) Schizophrenia: Status: Acute Code(s): F20.9 - Schizophrenia, unspecified (2) Failure to thrive in adult: Status: Acute Code(s): R62.7 - Adult failure to thrive Plan The patient is a 63-year-old male with a past history of schizophrenia who had been in and out of several facilities in the last year with severe hypoactive behavior, catatonic like symptoms and chronic noncompliance who needed to go for [facility] 7 and 8 for ECT. Even though that he had been treated with antipsychotics he remains still internally preoccupied. Plan 01/22/2024: No changes to current plan. Will add MiraLax 01/22: no changes 01/23 continue tx 01/24 continue tx. 01/25 continue tx 01/27 continue tx. 01/28: Continue current regimen and plans 01/29: Continue current regimen and plans. 01/30 continue tx. awaiting guardianship. 01/31 continue tx. 02/01 continue tx. 02/02 continue tx. 02/03 continue tx. 02/06 continue tx. 02/08: stable presentation. continue current mgmt. 02/09: no change 02/10: no change 02/11 continue same treatment 02/12 continue same treatment 02/13 continue tx. 02/14 continue tx. 02/15 continue tx 02/17 continue same treatment 02/18: appears slightly more wakeful and energetic than last time this comic book writer met with pt. continue current mgmt. 02/19: as per yesterday. 02/20 continue tx. 02/21 continue tx. 02/22 continue tx. 02/24 continue tx. 02/25 no change ? worsening- follow vs get labs if continues to refuse food/hydration 02/27 continue tx. 02/28 continue tx. 03/02: slowed, appears tired/fatigued. poor PO intake. continue current mgmt. 03/03 continue tx. 03/04: continue current management and treatment plan. 03/05: Continue current management and treatment plan. 03/06: Continue current management and treatment plan. 03/07 continue tx. 03/10 cmp elevation in BUN, cr at baseline. BP low even with midodrine, may benefit from IV fluids if refuses increase fluid intake. 03/11 keep same treatment 03/12 keep same treatment 03/13 continue tx. 03/14 continue tx. 03/15 continue tx. 03/16 add am dose of risperidone 0.5mg po daily. 03/17 continue tx. 03/18 continue tx. 03/19 increase daily risperidone to 1mg po daily. continue risperidone 2mg po qhs. 03/20 continue tx. Reason for continued inpatient stay Substantial Risk for: inability to function Time Spent With Patient Time: Total time managing care of this patient today ____ minutes.
[2024-03-20 17:30] VITALS: BP 90/67
[2024-03-20 20:00] VITALS: BP 103/63; PULSE 79; RESP 18; TEMP 36.9; O2SAT 96
[2024-03-20] MEDS: Sennosides 8.6 MG TABLET PO (21:39)
[2024-03-20] MEDS: risperiDONE 2 MG TABLET PO (21:39)
[2024-03-20] MEDS: Mirtazapine 7.5 MG TABLET PO (21:39)
[2024-03-21] MEDS: Midodrine HCl 10 MG TABLET PO ×3 (06:08→17:51)
[2024-03-21 07:55] VITALS: BP 100/60; PULSE 68; RESP 18; TEMP 36.6; O2SAT 96
[2024-03-21] MEDS: risperiDONE 1 MG TABLET PO (08:25)
[2024-03-21] MEDS: Vortioxetine Hydrobromide 5 MG TABLET PO (08:25)
[2024-03-21] MEDS: Cyanocobalamin (Vitamin B-12) 1,000 MCG TABLET 1000 MCG PO (08:25)
[2024-03-21] MEDS: modafiniL 100 MG TABLET PO (08:25)
[2024-03-21] MEDS: Famotidine 20 MG TABLET PO (08:25)
[2024-03-21] MEDS: Memantine HCl 5 MG TABLET PO ×2 (08:25→20:23)
[2024-03-21] MEDS: Cholecalciferol (Vitamin D3) 25 MCG TABLET PO (08:25)
--- NOTE | 2024-03-21 15:27 | HO.PSYCHPN ---
Subjective Subjective Date of Service: 03/21/24 Reason For Visit: Schizoaffective disorder, unspecified type Subjective Notes: Section 8 Interim History: Pt slept through the night. He is mostly in bed, minimally interacting with peers. Needs encouragement to get out of the room, have enough fluids. severe poverty of thought. Review of Systems Review of Systems Constipation improving Yes all other systems are reviewed and are negative and Unobtainable due to mental status Mental Status Exam Mental Status Exam Patient Appearance: Appropriate Patient Orientation: Person and Place Level of Consciousness: Awake Patient Behavior: Guarded and Passive Mood Description: Withdrawn Affect Description: Constricted Patient Cognition Impaired: Yes Ability to Follow Directions: Fair Speech Pattern: Clear and Spontaneous Speech (minimally spontaneous) Diagnostics Vital Signs (24Hr): Vital Signs - 24 hr 03/20/24 17:30 03/20/24 20:00 03/21/24 07:55 Temperature 98.4 F 97.9 F Pulse Rate 79 68 Respiratory Rate 18 18 Blood Pressure 90/67 103/63 100/60 Pulse Oximetry 96 96 Oxygen Delivery Method Room Air Room Air BMI result Body Mass Index 18.0 Labs 03/09/24 10:51 03/09/24 10:51 Imaging Radiology Impressions: ITS Impressions Chest X-Ray 11/14/23 15:16 IMPRESSION: No evidence of acute disease. No pulmonary mass, pneumonia or pleural effusion. Chest CT 12/21/23 14:32 IMPRESSION: 1. No focal infiltrate is seen. 2. A 4 mm noncalcified subpleural nodule is seen within the posterior segment of the right upper lobe. According to the UPDATED 2017 Fleischner Society recommendations, the advised follow-up imaging for solid nodules < 6 mm is: LOW RISK PATIENT: No routine follow-up. HIGH RISK PATIENT: Optional CT at 12 months. 3. There is no thoracic lymphadenopathy or pleural effusion. 4. There is a marked kyphoscoliosis. No acute or aggressive osseous lesion is seen. 5. There is mild cholelithiasis. Fleischner guidelines were followed. KUB X-Ray 01/17/24 10:57 IMPRESSION: Multiple prominent, distended air-filled loops of small and large bowel. [id number] amount of stool in the colon. Correlation with clinical exam recommended to determine further management including possible additional imaging with CT scan of the abdomen and pelvis if abdominal pathology is suspected. This study was presented today January 19, 2024 for interpretation. Stat results provided at this time as requested by referring provider. Medications Medications Current Medications Cyanocobalamin (Cyanocobalamin (Vitamin B-12) 1,000 Mcg Tablet) 1,000 mcg PO DAILY [facility] Last Admin: 03/21/24 08:25 Dose: 1,000 mcg Famotidine (Famotidine 20 Mg Tablet) 20 mg PO DAILY [facility] Last Admin: 03/21/24 08:25 Dose: 20 mg Loperamide HCl (Loperamide Hcl 2 Mg Capsule) 2 mg PO Q4H PRN PRN Reason: loose stools Last Admin: 01/13/24 15:22 Dose: 2 mg Magnesium Hydroxide (Milk Of Magnesia 30 Ml Oral.Susp) 30 ml PO BID PRN PRN Reason: Constipation Last Admin: 03/14/24 03:41 Dose: 30 ml Memantine (Memantine Hcl 5 Mg Tablet) 5 mg PO BID [facility] Last Admin: 03/21/24 08:25 Dose: 5 mg Midodrine (Midodrine Hcl 10 Mg Tablet) 10 mg PO TID@0600,1200,1800 [facility] Last Admin: 03/21/24 11:57 Dose: 10 mg Mirtazapine (Mirtazapine 7.5 Mg Tablet) 7.5 mg PO BEDTIME [facility] Last Admin: 03/20/24 21:39 Dose: 7.5 mg Modafinil (Modafinil 100 Mg Tablet) 100 mg PO DAILY [facility] Last Admin: 03/21/24 08:25 Dose: 100 mg Polyethylene Glycol (Polyethylene Glycol 3350 17 Gm Powd.Pack) 17 gm PO DAILY PRN PRN Reason: contipation Last Admin: 03/14/24 08:50 Dose: 17 gm Risperidone (Risperidone 2 Mg Tablet) 2 mg PO BEDTIME [facility] Last Admin: 03/20/24 21:39 Dose: 2 mg Risperidone (Risperidone 1 Mg Tablet) 1 mg PO DAILY [facility] Last Admin: 03/21/24 08:25 Dose: 1 mg Senna (Sennosides 8.6 Mg Tablet) 8.6 mg PO BEDTIME [facility] Last Admin: 03/20/24 21:39 Dose: 8.6 mg Vitamin D (Cholecalciferol (Vitamin D3) 25 Mcg Tablet) 25 mcg PO DAILY [facility] Last Admin: 03/21/24 08:25 Dose: 25 mcg Vortioxetine (Vortioxetine Hydrobromide 5 Mg Tablet) 5 mg PO DAILY [facility] Last Admin: 03/21/24 08:25 Dose: 5 mg Allergies Allergies Allergy/AdvReac Type Severity Reaction Status Date / Time omeprazole Allergy Unknown Verified 10/30/23 00:09 Assessment & Plan Assessment & Plan (1) Schizophrenia: Status: Acute Code(s): F20.9 - Schizophrenia, unspecified (2) Failure to thrive in adult: Status: Acute Code(s): R62.7 - Adult failure to thrive Plan The patient is a 63-year-old male with a past history of schizophrenia who had been in and out of several facilities in the last year with severe hypoactive behavior, catatonic like symptoms and chronic noncompliance who needed to go for Section 7 and 8 for ECT. Even though that he had been treated with antipsychotics he remains still internally preoccupied. Plan 01/22/2024: No changes to current plan. Will add MiraLax 01/22: no changes 01/23 continue tx 01/24 continue tx. 01/25 continue tx 01/27 continue tx. 01/28: Continue current regimen and plans 01/29: Continue current regimen and plans. 01/30 continue tx. awaiting guardianship. 01/31 continue tx. 02/01 continue tx. 02/02 continue tx. 02/03 continue tx. 02/06 continue tx. 02/08: stable presentation. continue current mgmt. 02/09: no change 02/10: no change 02/11 continue same treatment 02/12 continue same treatment 02/13 continue tx. 02/14 continue tx. 02/15 continue tx 02/17 continue same treatment 02/18: appears slightly more wakeful and energetic than last time this racebook writer met with pt. continue current mgmt. 02/19: as per yesterday. 02/20 continue tx. 02/21 continue tx. 02/22 continue tx. 02/24 continue tx. 02/25 no change ? worsening- follow vs get labs if continues to refuse food/hydration 02/27 continue tx. 02/28 continue tx. 03/02: slowed, appears tired/fatigued. poor PO intake. continue current mgmt. 03/03 continue tx. 03/04: continue current management and treatment plan. 03/05: Continue current management and treatment plan. 03/06: Continue current management and treatment plan. 03/07 continue tx. 03/10 cmp elevation in BUN, cr at baseline. BP low even with midodrine, may benefit from IV fluids if refuses increase fluid intake. 03/11 keep same treatment 03/12 keep same treatment 03/13 continue tx. 03/14 continue tx. 03/15 continue tx. 03/16 add am dose of risperidone 0.5mg po daily. 03/17 continue tx. 03/18 continue tx. 03/19 increase daily risperidone to 1mg po daily. continue risperidone 2mg po qhs. 03/20 continue tx. Reason for continued inpatient stay Substantial Risk for: inability to function Time Spent With Patient Time: Total time managing care of this patient today ____ minutes.
[2024-03-21 20:00] VITALS: BP 98/70; PULSE 80; RESP 17; TEMP 36.9; O2SAT 96
[2024-03-21] MEDS: Mirtazapine 7.5 MG TABLET PO (20:23)
[2024-03-21] MEDS: risperiDONE 2 MG TABLET PO (20:23)
[2024-03-21] MEDS: Sennosides 8.6 MG TABLET PO (20:23)
[2024-03-22 05:29] VITALS: BP 117/78; PULSE 100; RESP 18; TEMP 36; O2SAT 95
[2024-03-22] MEDS: Midodrine HCl 10 MG TABLET PO ×3 (05:35→18:06)
[2024-03-22 08:51] VITALS: BP 113/86; PULSE 107; RESP 18; TEMP 36.3; O2SAT 97
[2024-03-22] MEDS: Memantine HCl 5 MG TABLET PO ×2 (09:45→20:22)
[2024-03-22] MEDS: Cholecalciferol (Vitamin D3) 25 MCG TABLET PO (09:45)
[2024-03-22] MEDS: Cyanocobalamin (Vitamin B-12) 1,000 MCG TABLET 1000 MCG PO (09:45)
[2024-03-22] MEDS: modafiniL 100 MG TABLET PO (09:45)
[2024-03-22] MEDS: Vortioxetine Hydrobromide 5 MG TABLET PO (09:45)
[2024-03-22] MEDS: Famotidine 20 MG TABLET PO (09:45)
[2024-03-22] MEDS: risperiDONE 1 MG TABLET PO (09:45)
--- NOTE | 2024-03-22 14:04 | MHC.CLN ---
F/U DIET=REGULAR, SAFETY TRAY. ENSURE TID PROVIDES 1050 KCALS, 60 G PROTEIN. PATIENT ACCEPTS SUPPLEMENT. VARIABLE INTAKE AT MEALS, BITES TO 75%. CONTINUE CURRENT DIET, SUPPLEMENTS AND ENCOURAGE INTAKE ABLE. RD TO FOLLOW UP EVERY 2 WEEKS.
[2024-03-22 18:03] VITALS: BP 98/60; PULSE 80; RESP 18
[2024-03-22 20:00] VITALS: BP 100/67; PULSE 82; RESP 16; TEMP 35.8; O2SAT 96
[2024-03-22] MEDS: risperiDONE 2 MG TABLET PO (20:21)
[2024-03-22] MEDS: Mirtazapine 7.5 MG TABLET PO (20:22)
[2024-03-22] MEDS: Sennosides 8.6 MG TABLET PO (20:22)
[2024-03-23] MEDS: Midodrine HCl 10 MG TABLET PO ×2 (06:33→19:11)
[2024-03-23 06:35] VITALS: BP 99/56; PULSE 63; RESP 16; TEMP 36.3; O2SAT 95
[2024-03-23 08:54] VITALS: BMI 18.2
[2024-03-23] MEDS: Cyanocobalamin (Vitamin B-12) 1,000 MCG TABLET 1000 MCG PO (09:39)
[2024-03-23] MEDS: risperiDONE 1 MG TABLET PO (09:39)
[2024-03-23] MEDS: Famotidine 20 MG TABLET PO (09:39)
[2024-03-23] MEDS: Memantine HCl 5 MG TABLET PO ×2 (09:39→20:31)
[2024-03-23] MEDS: modafiniL 100 MG TABLET PO (09:39)
[2024-03-23] MEDS: Cholecalciferol (Vitamin D3) 25 MCG TABLET PO (09:39)
[2024-03-23 09:40] VITALS: BP 143/63; PULSE 74; RESP 16; TEMP 36.2; O2SAT 97
[2024-03-23] MEDS: Vortioxetine Hydrobromide 5 MG TABLET PO (09:40)
[2024-03-23 20:00] VITALS: BP 90/51; PULSE 73; RESP 16; TEMP 36; O2SAT 95
[2024-03-23] MEDS: Mirtazapine 7.5 MG TABLET PO (20:31)
[2024-03-23] MEDS: risperiDONE 2 MG TABLET PO (20:31)
[2024-03-23] MEDS: Sennosides 8.6 MG TABLET PO (20:31)
[2024-03-24] MEDS: Midodrine HCl 10 MG TABLET PO ×3 (06:27→21:16)
[2024-03-24 06:28] VITALS: BP 72/47; PULSE 55
--- NOTE | 2024-03-24 08:39 | P.PNPSI_ITS ---
Subjective Subjective Date of Service: 03/22/24 Reason For Visit: Schizoaffective disorder, unspecified type Subjective Notes: Section 8 Interim History: Pt slept through the night. He is mostly in bed, minimally interacting with peers. Needs encouragement to get out of the room, have enough fluids. severe poverty of thought. He reports he is tired, declined talking with this junior technical writer Review of Systems Review of Systems Constipation improving Yes all other systems are reviewed and are negative and Unobtainable due to mental status Mental Status Exam Mental Status Exam Patient Appearance: Appropriate Patient Orientation: Person and Place Level of Consciousness: Awake Patient Behavior: Guarded and Passive Mood Description: Withdrawn Affect Description: Constricted Patient Cognition Impaired: Yes Ability to Follow Directions: Fair Speech Pattern: Clear and Spontaneous Speech (minimally spontaneous) Diagnostics Vital Signs (24Hr): Vital Signs - 24 hr 03/23/24 09:40 03/23/24 20:00 03/24/24 06:28 Temperature 97.2 F 96.8 F Pulse Rate 74 73 55 Respiratory Rate 16 16 Blood Pressure 143/63 H 90/51 L 72/47 L Pulse Oximetry 97 95 Oxygen Delivery Method Room Air Room Air BMI result Body Mass Index 18.2 Labs 03/09/24 10:51 03/09/24 10:51 Imaging Radiology Impressions: ITS Impressions Chest X-Ray 11/14/23 15:16 IMPRESSION: No evidence of acute disease. No pulmonary mass, pneumonia or pleural effusion. Chest CT 12/21/23 14:32 IMPRESSION: 1. No focal infiltrate is seen. 2. A 4 mm noncalcified subpleural nodule is seen within the posterior segment of the right upper lobe. According to the UPDATED 2017 Fleischner Society recommendations, the advised follow-up imaging for solid nodules < 6 mm is: LOW RISK PATIENT: No routine follow-up. HIGH RISK PATIENT: Optional CT at 12 months. 3. There is no thoracic lymphadenopathy or pleural effusion. 4. There is a marked kyphoscoliosis. No acute or aggressive osseous lesion is seen. 5. There is mild cholelithiasis. Fleischner guidelines were followed. KUB X-Ray 01/17/24 10:57 IMPRESSION: Multiple prominent, distended air-filled loops of small and large bowel. [id number] amount of stool in the colon. Correlation with clinical exam recommended to determine further management including possible additional imaging with CT scan of the abdomen and pelvis if abdominal pathology is suspected. This study was presented today January 19, 2024 for interpretation. Stat results provided at this time as requested by referring provider. Medications Medications Current Medications Cyanocobalamin (Cyanocobalamin (Vitamin B-12) 1,000 Mcg Tablet) 1,000 mcg PO DAILY [facility] Last Admin: 03/23/24 09:39 Dose: 1,000 mcg Famotidine (Famotidine 20 Mg Tablet) 20 mg PO DAILY [facility] Last Admin: 03/23/24 09:39 Dose: 20 mg Loperamide HCl (Loperamide Hcl 2 Mg Capsule) 2 mg PO Q4H PRN PRN Reason: loose stools Last Admin: 01/13/24 15:22 Dose: 2 mg Magnesium Hydroxide (Milk Of Magnesia 30 Ml Oral.Susp) 30 ml PO BID PRN PRN Reason: Constipation Last Admin: 03/14/24 03:41 Dose: 30 ml Memantine (Memantine Hcl 5 Mg Tablet) 5 mg PO BID [facility] Last Admin: 03/23/24 20:31 Dose: 5 mg Midodrine (Midodrine Hcl 10 Mg Tablet) 10 mg PO TID@0600,1200,1800 [facility] Last Admin: 03/24/24 06:27 Dose: 10 mg Mirtazapine (Mirtazapine 7.5 Mg Tablet) 7.5 mg PO BEDTIME [facility] Last Admin: 03/23/24 20:31 Dose: 7.5 mg Modafinil (Modafinil 100 Mg Tablet) 100 mg PO DAILY [facility] Last Admin: 03/23/24 09:39 Dose: 100 mg Polyethylene Glycol (Polyethylene Glycol 3350 17 Gm Powd.Pack) 17 gm PO DAILY PRN PRN Reason: contipation Last Admin: 03/14/24 08:50 Dose: 17 gm Risperidone (Risperidone 2 Mg Tablet) 2 mg PO BEDTIME [facility] Last Admin: 03/23/24 20:31 Dose: 2 mg Risperidone (Risperidone 1 Mg Tablet) 1 mg PO DAILY [facility] Last Admin: 03/23/24 09:39 Dose: 1 mg Senna (Sennosides 8.6 Mg Tablet) 8.6 mg PO BEDTIME [facility] Last Admin: 03/23/24 20:31 Dose: 8.6 mg Vitamin D (Cholecalciferol (Vitamin D3) 25 Mcg Tablet) 25 mcg PO DAILY [facility] Last Admin: 03/23/24 09:39 Dose: 25 mcg Vortioxetine (Vortioxetine Hydrobromide 5 Mg Tablet) 5 mg PO DAILY [facility] Last Admin: 03/23/24 09:40 Dose: 5 mg Allergies Allergies Allergy/AdvReac Type Severity Reaction Status Date / Time omeprazole Allergy Unknown Verified 10/30/23 00:09 Assessment & Plan Assessment & Plan (1) Schizophrenia: Status: Acute Code(s): F20.9 - Schizophrenia, unspecified (2) Failure to thrive in adult: Status: Acute Code(s): R62.7 - Adult failure to thrive Plan The patient is a 63-year-old male with a past history of schizophrenia who had been in and out of several facilities in the last year with severe hypoactive behavior, catatonic like symptoms and chronic noncompliance who needed to go for Section 7 and 8 for ECT. Even though that he had been treated with antipsychotics he remains still internally preoccupied. Plan 01/22/2024: No changes to current plan. Will add MiraLax 01/22: no changes 01/23 continue tx 01/24 continue tx. 01/25 continue tx 01/27 continue tx. 01/28: Continue current regimen and plans 01/29: Continue current regimen and plans. 01/30 continue tx. awaiting guardianship. 01/31 continue tx. 02/01 continue tx. 02/02 continue tx. 02/03 continue tx. 02/06 continue tx. 02/08: stable presentation. continue current mgmt. 02/09: no change 02/10: no change 02/11 continue same treatment 02/12 continue same treatment 02/13 continue tx. 02/14 continue tx. 02/15 continue tx 02/17 continue same treatment 02/18: appears slightly more wakeful and energetic than last time this junior technical writer met with pt. continue current mgmt. 02/19: as per yesterday. 02/20 continue tx. 02/21 continue tx. 02/22 continue tx. 02/24 continue tx. 02/25 no change ? worsening- follow vs get labs if continues to refuse food/hydration 02/27 continue tx. 02/28 continue tx. 03/02: slowed, appears tired/fatigued. poor PO intake. continue current mgmt. 03/03 continue tx. 03/04: continue current management and treatment plan. 03/05: Continue current management and treatment plan. 03/06: Continue current management and treatment plan. 03/07 continue tx. 03/10 cmp elevation in BUN, cr at baseline. BP low even with midodrine, may benefit from IV fluids if refuses increase fluid intake. 03/11 keep same treatment 03/12 keep same treatment 03/13 continue tx. 03/14 continue tx. 03/15 continue tx. 03/16 add am dose of risperidone 0.5mg po daily. 03/17 continue tx. 03/18 continue tx. 03/19 increase daily risperidone to 1mg po daily. continue risperidone 2mg po qhs. 03/20 continue tx. Reason for continued inpatient stay Substantial Risk for: inability to function Time Spent With Patient Time: Total time managing care of this patient today ____ minutes.
--- NOTE | 2024-03-24 08:40 | P.PNPSI_ITS ---
Subjective Subjective Date of Service: 03/23/24 Reason For Visit: Schizoaffective disorder, unspecified type Interim History: Pt slept through the night. He is mostly in bed, minimally interacting with peers. Needs encouragement to get out of the room, have enough fluids. severe poverty of thought. He reports he is tired, declined talking with this movie writer Review of Systems Review of Systems Constipation improving Yes all other systems are reviewed and are negative and Unobtainable due to mental status Mental Status Exam Mental Status Exam Patient Appearance: Appropriate Patient Orientation: Person and Place Level of Consciousness: Awake Patient Behavior: Guarded and Passive Mood Description: Withdrawn Affect Description: Constricted Patient Cognition Impaired: Yes Ability to Follow Directions: Fair Speech Pattern: Clear and Spontaneous Speech (minimally spontaneous) Diagnostics Vital Signs (24Hr): Vital Signs - 24 hr 03/23/24 09:40 03/23/24 20:00 03/24/24 06:28 Temperature 97.2 F 96.8 F Pulse Rate 74 73 55 Respiratory Rate 16 16 Blood Pressure 143/63 H 90/51 L 72/47 L Pulse Oximetry 97 95 Oxygen Delivery Method Room Air Room Air BMI result Body Mass Index 18.2 Labs 03/09/24 10:51 03/09/24 10:51 Imaging Radiology Impressions: ITS Impressions Chest X-Ray 11/14/23 15:16 IMPRESSION: No evidence of acute disease. No pulmonary mass, pneumonia or pleural effusion. Chest CT 12/21/23 14:32 IMPRESSION: 1. No focal infiltrate is seen. 2. A 4 mm noncalcified subpleural nodule is seen within the posterior segment of the right upper lobe. According to the UPDATED 2017 Fleischner Society recommendations, the advised follow-up imaging for solid nodules < 6 mm is: LOW RISK PATIENT: No routine follow-up. HIGH RISK PATIENT: Optional CT at 12 months. 3. There is no thoracic lymphadenopathy or pleural effusion. 4. There is a marked kyphoscoliosis. No acute or aggressive osseous lesion is seen. 5. There is mild cholelithiasis. Fleischner guidelines were followed. KUB X-Ray 01/17/24 10:57 IMPRESSION: Multiple prominent, distended air-filled loops of small and large bowel. [id number] amount of stool in the colon. Correlation with clinical exam recommended to determine further management including possible additional imaging with CT scan of the abdomen and pelvis if abdominal pathology is suspected. This study was presented today January 19, 2024 for interpretation. Stat results provided at this time as requested by referring provider. Medications Medications Current Medications Cyanocobalamin (Cyanocobalamin (Vitamin B-12) 1,000 Mcg Tablet) 1,000 mcg PO DAILY [facility] Last Admin: 03/23/24 09:39 Dose: 1,000 mcg Famotidine (Famotidine 20 Mg Tablet) 20 mg PO DAILY [facility] Last Admin: 03/23/24 09:39 Dose: 20 mg Loperamide HCl (Loperamide Hcl 2 Mg Capsule) 2 mg PO Q4H PRN PRN Reason: loose stools Last Admin: 01/13/24 15:22 Dose: 2 mg Magnesium Hydroxide (Milk Of Magnesia 30 Ml Oral.Susp) 30 ml PO BID PRN PRN Reason: Constipation Last Admin: 03/14/24 03:41 Dose: 30 ml Memantine (Memantine Hcl 5 Mg Tablet) 5 mg PO BID [facility] Last Admin: 03/23/24 20:31 Dose: 5 mg Midodrine (Midodrine Hcl 10 Mg Tablet) 10 mg PO TID@0600,1200,1800 [facility] Last Admin: 03/24/24 06:27 Dose: 10 mg Mirtazapine (Mirtazapine 7.5 Mg Tablet) 7.5 mg PO BEDTIME [facility] Last Admin: 03/23/24 20:31 Dose: 7.5 mg Modafinil (Modafinil 100 Mg Tablet) 100 mg PO DAILY [facility] Last Admin: 03/23/24 09:39 Dose: 100 mg Polyethylene Glycol (Polyethylene Glycol 3350 17 Gm Powd.Pack) 17 gm PO DAILY PRN PRN Reason: contipation Last Admin: 03/14/24 08:50 Dose: 17 gm Risperidone (Risperidone 2 Mg Tablet) 2 mg PO BEDTIME [facility] Last Admin: 03/23/24 20:31 Dose: 2 mg Risperidone (Risperidone 1 Mg Tablet) 1 mg PO DAILY [facility] Last Admin: 03/23/24 09:39 Dose: 1 mg Senna (Sennosides 8.6 Mg Tablet) 8.6 mg PO BEDTIME [facility] Last Admin: 03/23/24 20:31 Dose: 8.6 mg Vitamin D (Cholecalciferol (Vitamin D3) 25 Mcg Tablet) 25 mcg PO DAILY [facility] Last Admin: 03/23/24 09:39 Dose: 25 mcg Vortioxetine (Vortioxetine Hydrobromide 5 Mg Tablet) 5 mg PO DAILY [facility] Last Admin: 03/23/24 09:40 Dose: 5 mg Allergies Allergies Allergy/AdvReac Type Severity Reaction Status Date / Time omeprazole Allergy Unknown Verified 10/30/23 00:09 Assessment & Plan Assessment & Plan (1) Schizophrenia: Status: Acute Code(s): F20.9 - Schizophrenia, unspecified (2) Failure to thrive in adult: Status: Acute Code(s): R62.7 - Adult failure to thrive Plan The patient is a 63-year-old male with a past history of schizophrenia who had been in and out of several facilities in the last year with severe hypoactive behavior, catatonic like symptoms and chronic noncompliance who needed to go for Section 7 and 8 for ECT. Even though that he had been treated with antipsychotics he remains still internally preoccupied. Plan 01/22/2024: No changes to current plan. Will add MiraLax 01/22: no changes 01/23 continue tx 01/24 continue tx. 01/25 continue tx 01/27 continue tx. 01/28: Continue current regimen and plans 01/29: Continue current regimen and plans. 01/30 continue tx. awaiting guardianship. 01/31 continue tx. 02/01 continue tx. 02/02 continue tx. 02/03 continue tx. 02/06 continue tx. 02/08: stable presentation. continue current mgmt. 02/09: no change 02/10: no change 02/11 continue same treatment 02/12 continue same treatment 02/13 continue tx. 02/14 continue tx. 02/15 continue tx 02/17 continue same treatment 02/18: appears slightly more wakeful and energetic than last time this movie writer met with pt. continue current mgmt. 02/19: as per yesterday. 02/20 continue tx. 02/21 continue tx. 02/22 continue tx. 02/24 continue tx. 02/25 no change ? worsening- follow vs get labs if continues to refuse food/hydration 02/27 continue tx. 02/28 continue tx. 03/02: slowed, appears tired/fatigued. poor PO intake. continue current mgmt. 03/03 continue tx. 03/04: continue current management and treatment plan. 9/1: Continue current management and treatment plan. 03/06: Continue current management and treatment plan. 03/07 continue tx. 03/10 cmp elevation in BUN, cr at baseline. BP low even with midodrine, may benefit from IV fluids if refuses increase fluid intake. 03/11 keep same treatment 03/12 keep same treatment 03/13 continue tx. 03/14 continue tx. 03/15 continue tx. 03/16 add am dose of risperidone 0.5mg po daily. 03/17 continue tx. 03/18 continue tx. 03/19 increase daily risperidone to 1mg po daily. continue risperidone 2mg po qhs. 03/20 continue tx. Reason for continued inpatient stay Substantial Risk for: inability to function Time Spent With Patient Time: Total time managing care of this patient today ____ minutes.
[2024-03-24 09:08] VITALS: BP 111/75; PULSE 75; RESP 16; TEMP 36.3; O2SAT 96
[2024-03-24] MEDS: modafiniL 100 MG TABLET PO (09:24)
[2024-03-24] MEDS: Cyanocobalamin (Vitamin B-12) 1,000 MCG TABLET 1000 MCG PO (09:24)
[2024-03-24] MEDS: Memantine HCl 5 MG TABLET PO ×2 (09:24→21:16)
[2024-03-24] MEDS: Vortioxetine Hydrobromide 5 MG TABLET PO (09:24)
[2024-03-24] MEDS: risperiDONE 1 MG TABLET PO (09:24)
[2024-03-24] MEDS: Famotidine 20 MG TABLET PO (09:24)
[2024-03-24] MEDS: Cholecalciferol (Vitamin D3) 25 MCG TABLET PO (09:24)
--- NOTE | 2024-03-24 15:59 | HO.PSYCHPN ---
Subjective Subjective Date of Service: 03/24/24 Reason For Visit: Schizoaffective disorder, unspecified type Subjective Notes: Section 7 and Section 8 Interim History: The nursing staff reported no changes in his mental status he slept nearly all night. The social work program coordinator reported the guardian contact and they are still working on [employer]. Interview the patient remains hypoactive no changes in mental status, waiting for placement Mental Status Exam Mental Status Exam Patient Appearance: Appropriate Patient Orientation: Person and Situation Level of Consciousness: Awake Patient Behavior: Guarded and Passive Mood Description: Withdrawn Affect Description: Constricted Patient Cognition Impaired: Yes Ability to Follow Directions: Good Speech Pattern: Clear Hallucinations: None Delusions: Ideas of Reference Thought Process: Distracted and Slowed Thinking Thought Content: positive for [place], positive for Poverty of Content and positive for Thought Blocking Judgement: Poor Diagnostics Vital Signs (24Hr): Vital Signs - 24 hr 03/23/24 20:00 03/24/24 06:28 03/24/24 09:08 Temperature 96.8 F 97.4 F Pulse Rate 73 55 75 Respiratory Rate 16 16 Blood Pressure 90/51 L 72/47 L 111/75 Pulse Oximetry 95 96 Oxygen Delivery Method Room Air Room Air BMI result Body Mass Index 18.2 Labs 03/09/24 10:51 03/09/24 10:51 Imaging Radiology Impressions: ITS Impressions Chest X-Ray 11/14/23 15:16 IMPRESSION: No evidence of acute disease. No pulmonary mass, pneumonia or pleural effusion. Chest CT 12/21/23 14:32 IMPRESSION: 1. No focal infiltrate is seen. 2. A 4 mm noncalcified subpleural nodule is seen within the posterior segment of the right upper lobe. According to the UPDATED 2017 Fleischner Society recommendations, the advised follow-up imaging for solid nodules < 6 mm is: LOW RISK PATIENT: No routine follow-up. HIGH RISK PATIENT: Optional CT at 12 months. 3. There is no thoracic lymphadenopathy or pleural effusion. 4. There is a marked kyphoscoliosis. No acute or aggressive osseous lesion is seen. 5. There is mild cholelithiasis. Fleischner guidelines were followed. KUB X-Ray 01/17/24 10:57 IMPRESSION: Multiple prominent, distended air-filled loops of small and large bowel. [id number] amount of stool in the colon. Correlation with clinical exam recommended to determine further management including possible additional imaging with CT scan of the abdomen and pelvis if abdominal pathology is suspected. This study was presented today January 19, 2024 for interpretation. Stat results provided at this time as requested by referring provider. Medications Medications Current Medications Cyanocobalamin (Cyanocobalamin (Vitamin B-12) 1,000 Mcg Tablet) 1,000 mcg PO DAILY [facility] Last Admin: 03/24/24 09:24 Dose: 1,000 mcg Famotidine (Famotidine 20 Mg Tablet) 20 mg PO DAILY [facility] Last Admin: 03/24/24 09:24 Dose: 20 mg Loperamide HCl (Loperamide Hcl 2 Mg Capsule) 2 mg PO Q4H PRN PRN Reason: loose stools Last Admin: 01/13/24 15:22 Dose: 2 mg Magnesium Hydroxide (Milk Of Magnesia 30 Ml Oral.Susp) 30 ml PO BID PRN PRN Reason: Constipation Last Admin: 03/14/24 03:41 Dose: 30 ml Memantine (Memantine Hcl 5 Mg Tablet) 5 mg PO BID [facility] Last Admin: 03/24/24 09:24 Dose: 5 mg Midodrine (Midodrine Hcl 10 Mg Tablet) 10 mg PO TID@0600,1200,1800 [facility] Last Admin: 03/24/24 11:56 Dose: 10 mg Mirtazapine (Mirtazapine 7.5 Mg Tablet) 7.5 mg PO BEDTIME [facility] Last Admin: 03/23/24 20:31 Dose: 7.5 mg Modafinil (Modafinil 100 Mg Tablet) 100 mg PO DAILY [facility] Last Admin: 03/24/24 09:24 Dose: 100 mg Polyethylene Glycol (Polyethylene Glycol 3350 17 Gm Powd.Pack) 17 gm PO DAILY PRN PRN Reason: contipation Last Admin: 03/14/24 08:50 Dose: 17 gm Risperidone (Risperidone 2 Mg Tablet) 2 mg PO BEDTIME [facility]Y Last Admin: 03/23/24 20:31 Dose: 2 mg Risperidone (Risperidone 1 Mg Tablet) 1 mg PO DAILY [facility] Last Admin: 03/24/24 09:24 Dose: 1 mg Senna (Sennosides 8.6 Mg Tablet) 8.6 mg PO BEDTIME [facility] Last Admin: 03/23/24 20:31 Dose: 8.6 mg Vitamin D (Cholecalciferol (Vitamin D3) 25 Mcg Tablet) 25 mcg PO DAILY [facility] Last Admin: 03/24/24 09:24 Dose: 25 mcg Vortioxetine (Vortioxetine Hydrobromide 5 Mg Tablet) 5 mg PO DAILY [facility] Last Admin: 03/24/24 09:24 Dose: 5 mg Allergies Allergies Allergy/AdvReac Type Severity Reaction Status Date / Time omeprazole Allergy Unknown Verified 10/30/23 00:09 Assessment & Plan Assessment & Plan (1) Schizophrenia: Status: Acute Code(s): F20.9 - Schizophrenia, unspecified (2) Failure to thrive in adult: Status: Acute Code(s): R62.7 - Adult failure to thrive Plan The patient is a 63-year-old male with a past history of schizophrenia who had been in and out of several facilities in the last year with severe hypoactive behavior, catatonic like symptoms and chronic noncompliance who needed to go for Section 7 and 8 for ECT. Even though that he had been treated with antipsychotics he remains still internally preoccupied. Plan 01/22/2024: No changes to current plan. Will add MiraLax 01/22: no changes 01/23 continue tx 01/24 continue tx. 01/25 continue tx 01/27 continue tx. 01/28: Continue current regimen and plans 01/29: Continue current regimen and plans. 01/30 continue tx. awaiting guardianship. 01/31 continue tx. 02/01 continue tx. 02/02 continue tx. 02/03 continue tx. 02/06 continue tx. 02/08: stable presentation. continue current mgmt. 02/09: no change 02/10: no change 02/11 continue same treatment 02/12 continue same treatment 02/13 continue tx. 02/14 continue tx. 02/15 continue tx 02/17 continue same treatment 02/18: appears slightly more wakeful and energetic than last time this clinical writer met with pt. continue current mgmt. 02/19: as per yesterday. 02/20 continue tx. 02/21 continue tx. 02/22 continue tx. 02/24 continue tx. 02/25 no change ? worsening- follow vs get labs if continues to refuse food/hydration 02/27 continue tx. 02/28 continue tx. 03/02: slowed, appears tired/fatigued. poor PO intake. continue current mgmt. 03/03 continue tx. 8/31: continue current management and treatment plan. 03/05: Continue current management and treatment plan. 03/06: Continue current management and treatment plan. 03/07 continue tx. 03/10 cmp elevation in BUN, cr at baseline. BP low even with midodrine, may benefit from IV fluids if refuses increase fluid intake. 03/11 keep same treatment 03/12 keep same treatment 03/13 continue tx. 03/14 continue tx. 03/15 continue tx. 03/16 add am dose of risperidone 0.5mg po daily. 03/17 continue tx. 03/18 continue tx. 03/19 increase daily risperidone to 1mg po daily. continue risperidone 2mg po qhs. 03/20 continue tx. 03/24 continue same treatment Reason for continued inpatient stay Substantial Risk for: inability to function, rapid decompensation and med/psych decompensation Time Spent With Patient Time: Total time managing care of this patient today __20__ minutes.
[2024-03-24 20:00] VITALS: BP 107/61; PULSE 80; RESP 18; TEMP 36.9; O2SAT 95
[2024-03-24] MEDS: Sennosides 8.6 MG TABLET PO (21:16)
[2024-03-24] MEDS: Mirtazapine 7.5 MG TABLET PO (21:16)
[2024-03-24] MEDS: risperiDONE 2 MG TABLET PO (21:16)
[2024-03-25] MEDS: Midodrine HCl 10 MG TABLET PO ×3 (06:45→17:00)
[2024-03-25 08:04] VITALS: BP 102/61; PULSE 88; RESP 16; TEMP 36.3; O2SAT 95
[2024-03-25] MEDS: Vortioxetine Hydrobromide 5 MG TABLET PO (08:55)
[2024-03-25] MEDS: risperiDONE 1 MG TABLET PO (08:55)
[2024-03-25] MEDS: Cyanocobalamin (Vitamin B-12) 1,000 MCG TABLET 1000 MCG PO (08:55)
[2024-03-25] MEDS: modafiniL 100 MG TABLET PO (08:55)
[2024-03-25] MEDS: Memantine HCl 5 MG TABLET PO ×2 (08:55→20:54)
[2024-03-25] MEDS: Famotidine 20 MG TABLET PO (08:55)
[2024-03-25] MEDS: Cholecalciferol (Vitamin D3) 25 MCG TABLET PO (08:55)
[2024-03-25] MEDS: Milk of Magnesia 30 ML ORAL.SUSP PO (09:00)
--- NOTE | 2024-03-25 11:22 | P.PNPSI_ITS ---
Subjective Subjective Date of Service: 03/25/24 Reason For Visit: Schizoaffective disorder, unspecified type Subjective Notes: Conditional Voluntary Interim History: Patient was seen and discussed in rounds today. Records and plans were reviewed. Remains isolative. Continues to have a lot of negative symptoms. Eating and sleeping adequately. No complaints or side effects. No changes were made today Review of Systems Review of Systems Yes Unobtainable due to mental status Mental Status Exam Mental Status Exam Patient Appearance: Appropriate Patient Orientation: Person and Situation Level of Consciousness: Awake Patient Behavior: Guarded and Passive Mood Description: Withdrawn Affect Description: Constricted Patient Cognition Impaired: Yes Ability to Follow Directions: Good Speech Pattern: Clear Hallucinations: None Delusions: Ideas of Reference Thought Process: Distracted and Slowed Thinking Thought Content: positive for [place], positive for Poverty of Content and positive for Thought Blocking Judgement: Poor Diagnostics Vital Signs (24Hr): Vital Signs - 24 hr 03/24/24 20:00 03/25/24 08:04 Temperature 98.5 F 97.4 F Pulse Rate 80 88 Respiratory Rate 18 16 Blood Pressure 107/61 102/61 Pulse Oximetry 95 95 Oxygen Delivery Method Room Air Room Air BMI result Body Mass Index 18.2 Labs 03/09/24 10:51 03/09/24 10:51 Imaging Radiology Impressions: ITS Impressions Chest X-Ray 11/14/23 15:16 IMPRESSION: No evidence of acute disease. No pulmonary mass, pneumonia or pleural effusion. Chest CT 12/21/23 14:32 IMPRESSION: 1. No focal infiltrate is seen. 2. A 4 mm noncalcified subpleural nodule is seen within the posterior segment of the right upper lobe. According to the UPDATED 2017 Fleischner Society recommendations, the advised follow-up imaging for solid nodules < 6 mm is: LOW RISK PATIENT: No routine follow-up. HIGH RISK PATIENT: Optional CT at 12 months. 3. There is no thoracic lymphadenopathy or pleural effusion. 4. There is a marked kyphoscoliosis. No acute or aggressive osseous lesion is seen. 5. There is mild cholelithiasis. Fleischner guidelines were followed. KUB X-Ray 01/17/24 10:57 IMPRESSION: Multiple prominent, distended air-filled loops of small and large bowel. [id number] amount of stool in the colon. Correlation with clinical exam recommended to determine further management including possible additional imaging with CT scan of the abdomen and pelvis if abdominal pathology is suspected. This study was presented today January 19, 2024 for interpretation. Stat results provided at this time as requested by referring provider. Medications Medications Current Medications Cyanocobalamin (Cyanocobalamin (Vitamin B-12) 1,000 Mcg Tablet) 1,000 mcg PO DAILY [facility] Last Admin: 03/25/24 08:55 Dose: 1,000 mcg Famotidine (Famotidine 20 Mg Tablet) 20 mg PO DAILY [facility] Last Admin: 03/25/24 08:55 Dose: 20 mg Loperamide HCl (Loperamide Hcl 2 Mg Capsule) 2 mg PO Q4H PRN PRN Reason: loose stools Last Admin: 01/13/24 15:22 Dose: 2 mg Magnesium Hydroxide (Milk Of Magnesia 30 Ml Oral.Susp) 30 ml PO BID PRN PRN Reason: Constipation Last Admin: 03/25/24 09:00 Dose: 30 ml Memantine (Memantine Hcl 5 Mg Tablet) 5 mg PO BID [facility] Last Admin: 03/25/24 08:55 Dose: 5 mg Midodrine (Midodrine Hcl 10 Mg Tablet) 10 mg PO TID@0600,1200,1800 [facility] Last Admin: 03/25/24 06:45 Dose: 10 mg Mirtazapine (Mirtazapine 7.5 Mg Tablet) 7.5 mg PO BEDTIME [facility] Last Admin: 03/24/24 21:16 Dose: 7.5 mg Modafinil (Modafinil 100 Mg Tablet) 100 mg PO DAILY [facility] Last Admin: 03/25/24 08:55 Dose: 100 mg Polyethylene Glycol (Polyethylene Glycol 3350 17 Gm Powd.Pack) 17 gm PO DAILY PRN PRN Reason: contipation Last Admin: 03/14/24 08:50 Dose: 17 gm Risperidone (Risperidone 2 Mg Tablet) 2 mg PO BEDTIME [facility] Last Admin: 03/24/24 21:16 Dose: 2 mg Risperidone (Risperidone 1 Mg Tablet) 1 mg PO DAILY [facility] Last Admin: 03/25/24 08:55 Dose: 1 mg Senna (Sennosides 8.6 Mg Tablet) 8.6 mg PO BEDTIME [facility] Last Admin: 03/24/24 21:16 Dose: 8.6 mg Vitamin D (Cholecalciferol (Vitamin D3) 25 Mcg Tablet) 25 mcg PO DAILY [facility] Last Admin: 03/25/24 08:55 Dose: 25 mcg Vortioxetine (Vortioxetine Hydrobromide 5 Mg Tablet) 5 mg PO DAILY [facility] Last Admin: 03/25/24 08:55 Dose: 5 mg Allergies Allergies Allergy/AdvReac Type Severity Reaction Status Date / Time omeprazole Allergy Unknown Verified 10/30/23 00:09 Assessment & Plan Assessment & Plan (1) Schizophrenia: Status: Acute Code(s): F20.9 - Schizophrenia, unspecified (2) Failure to thrive in adult: Status: Acute Code(s): R62.7 - Adult failure to thrive Plan The patient is a 63-year-old male with a past history of schizophrenia who had been in and out of several facilities in the last year with severe hypoactive behavior, catatonic like symptoms and chronic noncompliance who needed to go for Section 7 and 8 for ECT. Even though that he had been treated with antipsychotics he remains still internally preoccupied. Plan 01/22/2024: No changes to current plan. Will add MiraLax 01/22: no changes 01/23 continue tx 01/24 continue tx. 01/25 continue tx 01/27 continue tx. 01/28: Continue current regimen and plans 01/29: Continue current regimen and plans. 01/30 continue tx. awaiting guardianship. 01/31 continue tx. 02/01 continue tx. 02/02 continue tx. 02/03 continue tx. 02/06 continue tx. 02/08: stable presentation. continue current mgmt. 02/09: no change 02/10: no change 02/11 continue same treatment 02/12 continue same treatment 02/13 continue tx. 02/14 continue tx. 02/15 continue tx 02/17 continue same treatment 02/18: appears slightly more wakeful and energetic than last time this policy writer sales met with pt. continue current mgmt. 02/19: as per yesterday. 02/20 continue tx. 02/21 continue tx. 02/22 continue tx. 02/24 continue tx. 02/25 no change ? worsening- follow vs get labs if continues to refuse food/hydration 02/27 continue tx. 02/28 continue tx. 03/02: slowed, appears tired/fatigued. poor PO intake. continue current mgmt. 03/03 continue tx. 03/04: continue current management and treatment plan. 03/05: Continue current management and treatment plan. 03/06: Continue current management and treatment plan. 03/07 continue tx. 03/10 cmp elevation in BUN, cr at baseline. BP low even with midodrine, may benefit from IV fluids if refuses increase fluid intake. 03/11 keep same treatment 03/12 keep same treatment 03/13 continue tx. 03/14 continue tx. 03/15 continue tx. 03/16 add am dose of risperidone 0.5mg po daily. 03/17 continue tx. 03/18 continue tx. 03/19 increase daily risperidone to 1mg po daily. continue risperidone 2mg po qhs. 03/20 continue tx. 03/24 continue same treatment 03/25: Continue current regimen and plans Reason for continued inpatient stay Substantial Risk for: inability to function Time Spent With Patient Time: Total time managing care of this patient today ____ minutes.
[2024-03-25 11:46] VITALS: BP 97/57
[2024-03-25 16:54] VITALS: BP 109/76
[2024-03-25 20:00] VITALS: BP 101/63; PULSE 92; RESP 16; TEMP 36.6; O2SAT 95
[2024-03-25] MEDS: Sennosides 8.6 MG TABLET PO (20:53)
[2024-03-25] MEDS: Mirtazapine 7.5 MG TABLET PO (20:53)
[2024-03-25] MEDS: risperiDONE 2 MG TABLET PO (20:54)
[2024-03-26] MEDS: Midodrine HCl 10 MG TABLET PO ×3 (06:02→17:04)
[2024-03-26 07:42] VITALS: BP 100/66; PULSE 97; RESP 16; TEMP 36.5; O2SAT 96
--- NOTE | 2024-03-26 08:32 | HO.PSYCHPN ---
Subjective Subjective Date of Service: 03/26/24 Reason For Visit: Schizoaffective disorder, unspecified type Subjective Notes: Conditional Voluntary Interim History: Patient was seen and discussed in rounds today. Records and plans were reviewed. He continues to be mostly in bed and isolative. Has been a little constipated. He is med compliant. No complaints or side effects. Eating and sleeping adequately. No changes were made today Review of Systems Review of Systems Constipation Yes all other systems are reviewed and are negative Mental Status Exam Mental Status Exam Patient Appearance: Appropriate Patient Orientation: Person and Situation Level of Consciousness: Awake Patient Behavior: Guarded and Passive Mood Description: Withdrawn Affect Description: Constricted Patient Cognition Impaired: Yes Ability to Follow Directions: Good Speech Pattern: Clear Hallucinations: None Delusions: Ideas of Reference Thought Process: Distracted and Slowed Thinking Thought Content: positive for [place], positive for Poverty of Content and positive for Thought Blocking Judgement: Poor Diagnostics Vital Signs (24Hr): Vital Signs - 24 hr 03/25/24 11:46 03/25/24 16:54 03/25/24 20:00 Temperature 97.9 F Pulse Rate 92 Respiratory Rate 16 Blood Pressure 97/57 L 109/76 101/63 Pulse Oximetry 95 Oxygen Delivery Method Room Air 03/26/24 07:42 Temperature 97.7 F Pulse Rate 97 Respiratory Rate 16 Blood Pressure 100/66 Pulse Oximetry 96 Oxygen Delivery Method Room Air BMI result Body Mass Index 18.2 Labs 03/09/24 10:51 03/09/24 10:51 Imaging Radiology Impressions: ITS Impressions Chest X-Ray 11/14/23 15:16 IMPRESSION: No evidence of acute disease. No pulmonary mass, pneumonia or pleural effusion. Chest CT 12/21/23 14:32 IMPRESSION: 1. No focal infiltrate is seen. 2. A 4 mm noncalcified subpleural nodule is seen within the posterior segment of the right upper lobe. According to the UPDATED 2017 Fleischner Society recommendations, the advised follow-up imaging for solid nodules < 6 mm is: LOW RISK PATIENT: No routine follow-up. HIGH RISK PATIENT: Optional CT at 12 months. 3. There is no thoracic lymphadenopathy or pleural effusion. 4. There is a marked kyphoscoliosis. No acute or aggressive osseous lesion is seen. 5. There is mild cholelithiasis. Fleischner guidelines were followed. KUB X-Ray 01/17/24 10:57 IMPRESSION: Multiple prominent, distended air-filled loops of small and large bowel. [id number] amount of stool in the colon. Correlation with clinical exam recommended to determine further management including possible additional imaging with CT scan of the abdomen and pelvis if abdominal pathology is suspected. This study was presented today January 19, 2024 for interpretation. Stat results provided at this time as requested by referring provider. Medications Medications Current Medications Cyanocobalamin (Cyanocobalamin (Vitamin B-12) 1,000 Mcg Tablet) 1,000 mcg PO DAILY [facility] Last Admin: 03/25/24 08:55 Dose: 1,000 mcg Famotidine (Famotidine 20 Mg Tablet) 20 mg PO DAILY [facility] Last Admin: 03/25/24 08:55 Dose: 20 mg Loperamide HCl (Loperamide Hcl 2 Mg Capsule) 2 mg PO Q4H PRN PRN Reason: loose stools Last Admin: 01/13/24 15:22 Dose: 2 mg Magnesium Hydroxide (Milk Of Magnesia 30 Ml Oral.Susp) 30 ml PO BID PRN PRN Reason: Constipation Last Admin: 03/25/24 09:00 Dose: 30 ml Memantine (Memantine Hcl 5 Mg Tablet) 5 mg PO BID [facility] Last Admin: 03/25/24 20:54 Dose: 5 mg Midodrine (Midodrine Hcl 10 Mg Tablet) 10 mg PO TID@0600,1200,1800 [facility] Last Admin: 03/26/24 06:02 Dose: 10 mg Mirtazapine (Mirtazapine 7.5 Mg Tablet) 7.5 mg PO BEDTIME [facility] Last Admin: 03/25/24 20:53 Dose: 7.5 mg Modafinil (Modafinil 100 Mg Tablet) 100 mg PO DAILY [facility] Last Admin: 03/25/24 08:55 Dose: 100 mg Polyethylene Glycol (Polyethylene Glycol 3350 17 Gm Powd.Pack) 17 gm PO DAILY PRN PRN Reason: contipation Last Admin: 03/14/24 08:50 Dose: 17 gm Risperidone (Risperidone 2 Mg Tablet) 2 mg PO BEDTIME [facility] Last Admin: 03/25/24 20:54 Dose: 2 mg Risperidone (Risperidone 1 Mg Tablet) 1 mg PO DAILY [facility] Last Admin: 03/25/24 08:55 Dose: 1 mg Senna (Sennosides 8.6 Mg Tablet) 8.6 mg PO BEDTIME [facility] Last Admin: 03/25/24 20:53 Dose: 8.6 mg Vitamin D (Cholecalciferol (Vitamin D3) 25 Mcg Tablet) 25 mcg PO DAILY [facility] Last Admin: 03/25/24 08:55 Dose: 25 mcg Vortioxetine (Vortioxetine Hydrobromide 5 Mg Tablet) 5 mg PO DAILY [facility] Last Admin: 03/25/24 08:55 Dose: 5 mg Allergies Allergies Allergy/AdvReac Type Severity Reaction Status Date / Time omeprazole Allergy Unknown Verified 10/30/23 00:09 Assessment & Plan Assessment & Plan (1) Schizophrenia: Status: Acute Code(s): F20.9 - Schizophrenia, unspecified (2) Failure to thrive in adult: Status: Acute Code(s): R62.7 - Adult failure to thrive Plan The patient is a 63-year-old male with a past history of schizophrenia who had been in and out of several facilities in the last year with severe hypoactive behavior, catatonic like symptoms and chronic noncompliance who needed to go for Section 7 and 8 for ECT. Even though that he had been treated with antipsychotics he remains still internally preoccupied. Plan 01/22/2024: No changes to current plan. Will add MiraLax 01/22: no changes 01/23 continue tx 01/24 continue tx. 01/25 continue tx 01/27 continue tx. 01/28: Continue current regimen and plans 01/29: Continue current regimen and plans. 01/30 continue tx. awaiting guardianship. 01/31 continue tx. 02/01 continue tx. 02/02 continue tx. 02/03 continue tx. 02/06 continue tx. 02/08: stable presentation. continue current mgmt. 02/09: no change 02/10: no change 02/11 continue same treatment 02/12 continue same treatment 02/13 continue tx. 02/14 continue tx. 02/15 continue tx 02/17 continue same treatment 02/18: appears slightly more wakeful and energetic than last time this residential mortgage underwriter met with pt. continue current mgmt. 02/19: as per yesterday. 02/20 continue tx. 02/21 continue tx. 02/22 continue tx. 02/24 continue tx. 02/25 no change ? worsening- follow vs get labs if continues to refuse food/hydration 02/27 continue tx. 02/28 continue tx. 03/02: slowed, appears tired/fatigued. poor PO intake. continue current mgmt. 03/03 continue tx. 03/04: continue current management and treatment plan. 03/05: Continue current management and treatment plan. 03/06: Continue current management and treatment plan. 03/07 continue tx. 03/10 cmp elevation in BUN, cr at baseline. BP low even with midodrine, may benefit from IV fluids if refuses increase fluid intake. 03/11 keep same treatment 03/12 keep same treatment 03/13 continue tx. 03/14 continue tx. 03/15 continue tx. 03/16 add am dose of risperidone 0.5mg po daily. 03/17 continue tx. 03/18 continue tx. 03/19 increase daily risperidone to 1mg po daily. continue risperidone 2mg po qhs. 03/20 continue tx. 03/24 continue same treatment 03/25: Continue current regimen and plans 03/26: Continue current regimen and plans Reason for continued inpatient stay Substantial Risk for: med/psych decompensation Time Spent With Patient Time: Total time managing care of this patient today ____ minutes.
[2024-03-26] MEDS: modafiniL 100 MG TABLET PO (08:49)
[2024-03-26] MEDS: Cyanocobalamin (Vitamin B-12) 1,000 MCG TABLET 1000 MCG PO (08:49)
[2024-03-26] MEDS: Vortioxetine Hydrobromide 5 MG TABLET PO (08:49)
[2024-03-26] MEDS: Memantine HCl 5 MG TABLET PO ×2 (08:49→20:07)
[2024-03-26] MEDS: risperiDONE 1 MG TABLET PO (08:49)
[2024-03-26] MEDS: Cholecalciferol (Vitamin D3) 25 MCG TABLET PO (08:49)
[2024-03-26] MEDS: Famotidine 20 MG TABLET PO (08:49)
[2024-03-26 11:24] VITALS: BP 96/61
[2024-03-26 17:03] VITALS: BP 109/58
[2024-03-26 20:00] VITALS: BP 87/51; PULSE 74; RESP 16; TEMP 37.1; O2SAT 95
[2024-03-26] MEDS: Sennosides 8.6 MG TABLET PO (20:07)
[2024-03-26] MEDS: risperiDONE 2 MG TABLET PO (20:07)
[2024-03-26] MEDS: Mirtazapine 7.5 MG TABLET PO (20:07)
[2024-03-27 05:44] VITALS: BP 92/59; PULSE 84; RESP 15; TEMP 36.4; O2SAT 94
[2024-03-27] MEDS: Midodrine HCl 10 MG TABLET PO ×3 (05:46→17:57)
[2024-03-27 08:00] VITALS: BP 100/55; PULSE 52; RESP 18; TEMP 36.2; O2SAT 96
[2024-03-27] MEDS: modafiniL 100 MG TABLET PO (08:45)
[2024-03-27] MEDS: Famotidine 20 MG TABLET PO (08:45)
[2024-03-27] MEDS: risperiDONE 1 MG TABLET PO (08:45)
[2024-03-27] MEDS: Cholecalciferol (Vitamin D3) 25 MCG TABLET PO (08:45)
[2024-03-27] MEDS: Memantine HCl 5 MG TABLET PO ×2 (08:45→19:58)
[2024-03-27] MEDS: Cyanocobalamin (Vitamin B-12) 1,000 MCG TABLET 1000 MCG PO (08:46)
[2024-03-27] MEDS: Vortioxetine Hydrobromide 5 MG TABLET PO (08:46)
--- NOTE | 2024-03-27 08:52 | P.PNPSI_ITS ---
Subjective Subjective Date of Service: 03/27/24 Reason For Visit: Schizoaffective disorder, unspecified type Subjective Notes: Section 8 Interim History: Pt presenting as more withdrawn, in bed, not engage much in conversation. Some regression noted after some initial partial response to ECT. Will switch provigil to adderall. increase trintellix to target abulia Diagnostics Vital Signs (24Hr): Vital Signs - 24 hr 03/26/24 11:24 03/26/24 17:03 03/26/24 20:00 Temperature 98.7 F Pulse Rate 74 Respiratory Rate 16 Blood Pressure 96/61 109/58 L 87/51 L Pulse Oximetry 95 Oxygen Delivery Method Room Air 03/27/24 05:44 Temperature 97.6 F Pulse Rate 84 Respiratory Rate 15 Blood Pressure 92/59 L Pulse Oximetry 94 Oxygen Delivery Method Room Air BMI result Body Mass Index 18.2 Labs 03/09/24 10:51 03/09/24 10:51 Imaging Radiology Impressions: ITS Impressions Chest X-Ray 11/14/23 15:16 IMPRESSION: No evidence of acute disease. No pulmonary mass, pneumonia or pleural effusion. Chest CT 12/21/23 14:32 IMPRESSION: 1. No focal infiltrate is seen. 2. A 4 mm noncalcified subpleural nodule is seen within the posterior segment of the right upper lobe. According to the UPDATED 2017 Fleischner Society recommendations, the advised follow-up imaging for solid nodules < 6 mm is: LOW RISK PATIENT: No routine follow-up. HIGH RISK PATIENT: Optional CT at 12 months. 3. There is no thoracic lymphadenopathy or pleural effusion. 4. There is a marked kyphoscoliosis. No acute or aggressive osseous lesion is seen. 5. There is mild cholelithiasis. Fleischner guidelines were followed. KUB X-Ray 01/17/24 10:57 IMPRESSION: Multiple prominent, distended air-filled loops of small and large bowel. [id number] amount of stool in the colon. Correlation with clinical exam recommended to determine further management including possible additional imaging with CT scan of the abdomen and pelvis if abdominal pathology is suspected. This study was presented today January 19, 2024 for interpretation. Stat results provided at this time as requested by referring provider. Medications Medications Current Medications Cyanocobalamin (Cyanocobalamin (Vitamin B-12) 1,000 Mcg Tablet) 1,000 mcg PO DAILY YESY Last Admin: 03/27/24 08:46 Dose: 1,000 mcg Famotidine (Famotidine 20 Mg Tablet) 20 mg PO DAILY [facility] Last Admin: 03/27/24 08:45 Dose: 20 mg Loperamide HCl (Loperamide Hcl 2 Mg Capsule) 2 mg PO Q4H PRN PRN Reason: loose stools Last Admin: 01/13/24 15:22 Dose: 2 mg Magnesium Hydroxide (Milk Of Magnesia 30 Ml Oral.Susp) 30 ml PO BID PRN PRN Reason: Constipation Last Admin: 03/25/24 09:00 Dose: 30 ml Memantine (Memantine Hcl 5 Mg Tablet) 5 mg PO BID [facility] Last Admin: 03/27/24 08:45 Dose: 5 mg Midodrine (Midodrine Hcl 10 Mg Tablet) 10 mg PO TID@0600,1200,1800 [facility] Last Admin: 03/27/24 05:46 Dose: 10 mg Mirtazapine (Mirtazapine 7.5 Mg Tablet) 7.5 mg PO BEDTIME [facility] Last Admin: 03/26/24 20:07 Dose: 7.5 mg Modafinil (Modafinil 100 Mg Tablet) 100 mg PO DAILY [facility] Last Admin: 03/27/24 08:45 Dose: 100 mg Polyethylene Glycol (Polyethylene Glycol 3350 17 Gm Powd.Pack) 17 gm PO DAILY PRN PRN Reason: contipation Last Admin: 03/14/24 08:50 Dose: 17 gm Risperidone (Risperidone 2 Mg Tablet) 2 mg PO BEDTIME [facility] Last Admin: 03/26/24 20:07 Dose: 2 mg Risperidone (Risperidone 1 Mg Tablet) 1 mg PO DAILY [facility] Last Admin: 03/27/24 08:45 Dose: 1 mg Senna (Sennosides 8.6 Mg Tablet) 8.6 mg PO BEDTIME [facility] Last Admin: 03/26/24 20:07 Dose: 8.6 mg Vitamin D (Cholecalciferol (Vitamin D3) 25 Mcg Tablet) 25 mcg PO DAILY [facility] Last Admin: 03/27/24 08:45 Dose: 25 mcg Vortioxetine (Vortioxetine Hydrobromide 5 Mg Tablet) 5 mg PO DAILY [facility] Last Admin: 03/27/24 08:46 Dose: 5 mg Allergies Allergies Allergy/AdvReac Type Severity Reaction Status Date / Time omeprazole Allergy Unknown Verified 10/30/23 00:09 Assessment & Plan Assessment & Plan (1) Schizophrenia: Status: Acute Code(s): F20.9 - Schizophrenia, unspecified (2) Failure to thrive in adult: Status: Acute Code(s): R62.7 - Adult failure to thrive Plan The patient is a 63-year-old male with a past history of schizophrenia who had been in and out of several facilities in the last year with severe hypoactive behavior, catatonic like symptoms and chronic noncompliance who needed to go for Section 7 and 8 for ECT. Even though that he had been treated with antipsychotics he remains still internally preoccupied. Plan 01/22/2024: No changes to current plan. Will add MiraLax 01/22: no changes 01/23 continue tx 01/24 continue tx. 01/25 continue tx 01/27 continue tx. 01/28: Continue current regimen and plans 01/29: Continue current regimen and plans. 01/30 continue tx. awaiting guardianship. 01/31 continue tx. 02/01 continue tx. 02/02 continue tx. 02/03 continue tx. 02/06 continue tx. 02/08: stable presentation. continue current mgmt. 02/09: no change 02/10: no change 02/11 continue same treatment 02/12 continue same treatment 02/13 continue tx. 02/14 continue tx. 02/15 continue tx 02/17 continue same treatment 02/18: appears slightly more wakeful and energetic than last time this display card writer met with pt. continue current mgmt. 02/19: as per yesterday. 02/20 continue tx. 02/21 continue tx. 02/22 continue tx. 02/24 continue tx. 02/25 no change ? worsening- follow vs get labs if continues to refuse food/hydration 02/27 continue tx. 02/28 continue tx. 03/02: slowed, appears tired/fatigued. poor PO intake. continue current mgmt. 03/03 continue tx. 03/04: continue current management and treatment plan. 03/05: Continue current management and treatment plan. 03/06: Continue current management and treatment plan. 03/07 continue tx. 03/10 cmp elevation in BUN, cr at baseline. BP low even with midodrine, may benefit from IV fluids if refuses increase fluid intake. 03/11 keep same treatment 03/12 keep same treatment 03/13 continue tx. 03/14 continue tx. 03/15 continue tx. 03/16 add am dose of risperidone 0.5mg po daily. 03/17 continue tx. 03/18 continue tx. 03/19 increase daily risperidone to 1mg po daily. continue risperidone 2mg po qhs. 03/20 continue tx. 03/24 continue same treatment 03/25: Continue current regimen and plans 03/26: Continue current regimen and plans 03/27 regression in abulia noted- will switch provigil to adderall, increase trintellix Reason for continued inpatient stay Substantial Risk for: inability to function Time Spent With Patient Time: Total time managing care of this patient today ____ minutes.
[2024-03-27 11:45] VITALS: BP 100/52
[2024-03-27 17:57] VITALS: BP 98/51
[2024-03-27] MEDS: risperiDONE 2 MG TABLET PO (19:58)
[2024-03-27] MEDS: Mirtazapine 7.5 MG TABLET PO (19:58)
[2024-03-27] MEDS: Sennosides 8.6 MG TABLET PO (19:58)
[2024-03-27 20:00] VITALS: BP 106/69; PULSE 82; RESP 16; TEMP 36.3; O2SAT 93
[2024-03-28 05:37] VITALS: BP 87/50; PULSE 64
[2024-03-28] MEDS: Midodrine HCl 10 MG TABLET PO ×3 (05:41→17:55)
[2024-03-28 08:30] VITALS: BP 85/56; PULSE 70; RESP 16; TEMP 36.6; O2SAT 95
[2024-03-28] MEDS: Vortioxetine Hydrobromide 10 MG TABLET PO (08:39)
[2024-03-28] MEDS: Dextroamphetamine/Amphetamine XR 5 MG CAP.ER.24H PO (08:40)
[2024-03-28] MEDS: risperiDONE 1 MG TABLET PO (08:40)
[2024-03-28] MEDS: Famotidine 20 MG TABLET PO (08:40)
[2024-03-28] MEDS: Cyanocobalamin (Vitamin B-12) 1,000 MCG TABLET 1000 MCG PO (08:40)
[2024-03-28] MEDS: Cholecalciferol (Vitamin D3) 25 MCG TABLET PO (08:40)
[2024-03-28] MEDS: Memantine HCl 5 MG TABLET PO ×2 (08:40→19:49)
[2024-03-28 11:45] VITALS: BP 120/82
[2024-03-28 17:55] VITALS: BP 106/64
[2024-03-28] MEDS: Sennosides 8.6 MG TABLET PO (19:49)
[2024-03-28] MEDS: Mirtazapine 7.5 MG TABLET PO (19:49)
[2024-03-28] MEDS: risperiDONE 2 MG TABLET PO (19:49)
[2024-03-28 20:05] VITALS: BP 87/51; PULSE 63; RESP 17; TEMP 36.1; O2SAT 93
--- NOTE | 2024-03-28 21:10 | HO.PSYCHPN ---
Subjective Subjective Date of Service: 03/28/24 Reason For Visit: Schizoaffective disorder, unspecified type Subjective Notes: Section 8 Interim History: Pt slept through the night. He has been mostly in bed. MInimally engaging with peers or staff, avoids conversation and turns around. Review of Systems Review of Systems Constipation Yes all other systems are reviewed and are negative and Unobtainable due to mental status Mental Status Exam Mental Status Exam Patient Appearance: Appropriate Patient Orientation: Person and Situation Level of Consciousness: Awake Patient Behavior: Guarded and Passive Mood Description: Withdrawn Affect Description: Constricted Patient Cognition Impaired: Yes Ability to Follow Directions: Good Speech Pattern: Clear Diagnostics Vital Signs (24Hr): Vital Signs - 24 hr 03/28/24 05:37 03/28/24 08:30 03/28/24 11:45 Temperature 97.9 F Pulse Rate 64 70 Respiratory Rate 16 Blood Pressure 87/50 L 85/56 L 120/82 Pulse Oximetry 95 Oxygen Delivery Method Room Air 03/28/24 17:55 03/28/24 20:05 Temperature 96.9 F Pulse Rate 63 Respiratory Rate 17 Blood Pressure 106/64 87/51 L Pulse Oximetry 93 Oxygen Delivery Method Room Air BMI result Body Mass Index 18.2 Labs 03/09/24 10:51 03/09/24 10:51 Imaging Radiology Impressions: ITS Impressions Chest X-Ray 11/14/23 15:16 IMPRESSION: No evidence of acute disease. No pulmonary mass, pneumonia or pleural effusion. Chest CT 12/21/23 14:32 IMPRESSION: 1. No focal infiltrate is seen. 2. A 4 mm noncalcified subpleural nodule is seen within the posterior segment of the right upper lobe. According to the UPDATED 2017 Fleischner Society recommendations, the advised follow-up imaging for solid nodules < 6 mm is: LOW RISK PATIENT: No routine follow-up. HIGH RISK PATIENT: Optional CT at 12 months. 3. There is no thoracic lymphadenopathy or pleural effusion. 4. There is a marked kyphoscoliosis. No acute or aggressive osseous lesion is seen. 5. There is mild cholelithiasis. Fleischner guidelines were followed. KUB X-Ray 01/17/24 10:57 IMPRESSION: Multiple prominent, distended air-filled loops of small and large bowel. [id number] amount of stool in the colon. Correlation with clinical exam recommended to determine further management including possible additional imaging with CT scan of the abdomen and pelvis if abdominal pathology is suspected. This study was presented today January 19, 2024 for interpretation. Stat results provided at this time as requested by referring provider. Medications Medications Current Medications Amphetamine/Dextroamphetamine (Dextroamphetamine/Amphetamine Xr 5 Mg Cap.Er.24h) 5 mg PO DAILY [facility] Last Admin: 03/28/24 08:40 Dose: 5 mg Cyanocobalamin (Cyanocobalamin (Vitamin B-12) 1,000 Mcg Tablet) 1,000 mcg PO DAILY YESY Last Admin: 03/28/24 08:40 Dose: 1,000 mcg Famotidine (Famotidine 20 Mg Tablet) 20 mg PO DAILY YESY Last Admin: 03/28/24 08:40 Dose: 20 mg Loperamide HCl (Loperamide Hcl 2 Mg Capsule) 2 mg PO Q4H PRN PRN Reason: loose stools Last Admin: 01/13/24 15:22 Dose: 2 mg Magnesium Hydroxide (Milk Of Magnesia 30 Ml Oral.Susp) 30 ml PO BID PRN PRN Reason: Constipation Last Admin: 03/25/24 09:00 Dose: 30 ml Memantine (Memantine Hcl 5 Mg Tablet) 5 mg PO BID [facility] Last Admin: 03/28/24 19:49 Dose: 5 mg Midodrine (Midodrine Hcl 10 Mg Tablet) 10 mg PO TID@0600,1200,1800 YESY Last Admin: 03/28/24 17:55 Dose: 10 mg Mirtazapine (Mirtazapine 7.5 Mg Tablet) 7.5 mg PO BEDTIME YESY Last Admin: 03/28/24 19:49 Dose: 7.5 mg Polyethylene Glycol (Polyethylene Glycol 3350 17 Gm Powd.Pack) 17 gm PO DAILY PRN PRN Reason: contipation Last Admin: 03/14/24 08:50 Dose: 17 gm Risperidone (Risperidone 2 Mg Tablet) 2 mg PO BEDTIME YESY Last Admin: 03/28/24 19:49 Dose: 2 mg Risperidone (Risperidone 1 Mg Tablet) 1 mg PO DAILY YESY Last Admin: 03/28/24 08:40 Dose: 1 mg Senna (Sennosides 8.6 Mg Tablet) 8.6 mg PO BEDTIME YESY Last Admin: 03/28/24 19:49 Dose: 8.6 mg Vitamin D (Cholecalciferol (Vitamin D3) 25 Mcg Tablet) 25 mcg PO DAILY [facility] Last Admin: 03/28/24 08:40 Dose: 25 mcg Vortioxetine (Vortioxetine Hydrobromide 10 Mg Tablet) 10 mg PO DAILY [facility] Last Admin: 03/28/24 08:39 Dose: 10 mg Allergies Allergies Allergy/AdvReac Type Severity Reaction Status Date / Time omeprazole Allergy Unknown Verified 10/30/23 00:09 Assessment & Plan Assessment & Plan (1) Schizophrenia: Status: Acute Code(s): F20.9 - Schizophrenia, unspecified (2) Failure to thrive in adult: Status: Acute Code(s): R62.7 - Adult failure to thrive Plan The patient is a 63-year-old male with a past history of schizophrenia who had been in and out of several facilities in the last year with severe hypoactive behavior, catatonic like symptoms and chronic noncompliance who needed to go for Section 7 and 8 for ECT. Even though that he had been treated with antipsychotics he remains still internally preoccupied. Plan 01/22/2024: No changes to current plan. Will add MiraLax 01/22: no changes 01/23 continue tx 01/24 continue tx. 01/25 continue tx 01/27 continue tx. 01/28: Continue current regimen and plans 01/29: Continue current regimen and plans. 01/30 continue tx. awaiting guardianship. 01/31 continue tx. 02/01 continue tx. 02/02 continue tx. 02/03 continue tx. 02/06 continue tx. 02/08: stable presentation. continue current mgmt. 02/09: no change 02/10: no change 02/11 continue same treatment 02/12 continue same treatment 02/13 continue tx. 02/14 continue tx. 02/15 continue tx 02/17 continue same treatment 02/18: appears slightly more wakeful and energetic than last time this keno writer met with pt. continue current mgmt. 02/19: as per yesterday. 02/20 continue tx. 02/21 continue tx. 02/22 continue tx. 02/24 continue tx. 02/25 no change ? worsening- follow vs get labs if continues to refuse food/hydration 02/27 continue tx. 02/28 continue tx. 03/02: slowed, appears tired/fatigued. poor PO intake. continue current mgmt. 03/03 continue tx. 03/04: continue current management and treatment plan. 03/05: Continue current management and treatment plan. 03/06: Continue current management and treatment plan. 03/07 continue tx. 03/10 cmp elevation in BUN, cr at baseline. BP low even with midodrine, may benefit from IV fluids if refuses increase fluid intake. 03/11 keep same treatment 03/12 keep same treatment 03/13 continue tx. 03/14 continue tx. 03/15 continue tx. 03/16 add am dose of risperidone 0.5mg po daily. 03/17 continue tx. 03/18 continue tx. 03/19 increase daily risperidone to 1mg po daily. continue risperidone 2mg po qhs. 03/20 continue tx. 03/24 continue same treatment 03/25: Continue current regimen and plans 03/26: Continue current regimen and plans 03/27 continue tx. switch provigil to adderall. increase trintellix. 03/28 continue tx. Reason for continued inpatient stay Substantial Risk for: inability to function Time Spent With Patient Time: Total time managing care of this patient today ____ minutes.
[2024-03-29 05:34] VITALS: BP 99/64; PULSE 82
[2024-03-29] MEDS: Midodrine HCl 10 MG TABLET PO ×3 (05:34→18:13)
[2024-03-29 08:00] VITALS: BP 98/62; PULSE 70; RESP 16; TEMP 36.2; O2SAT 95
[2024-03-29] MEDS: Cholecalciferol (Vitamin D3) 25 MCG TABLET PO (08:17)
[2024-03-29] MEDS: Dextroamphetamine/Amphetamine XR 5 MG CAP.ER.24H PO (08:17)
[2024-03-29] MEDS: risperiDONE 1 MG TABLET PO (08:17)
[2024-03-29] MEDS: Vortioxetine Hydrobromide 10 MG TABLET PO (08:17)
[2024-03-29] MEDS: Cyanocobalamin (Vitamin B-12) 1,000 MCG TABLET 1000 MCG PO (08:17)
[2024-03-29] MEDS: Famotidine 20 MG TABLET PO (08:17)
[2024-03-29] MEDS: Memantine HCl 5 MG TABLET PO ×2 (08:17→21:13)
[2024-03-29 11:47] VITALS: BP 105/62
[2024-03-29 18:13] VITALS: BP 91/67
[2024-03-29 20:00] VITALS: BP 98/53; PULSE 80; RESP 18; TEMP 36.7; O2SAT 95
[2024-03-29] MEDS: Mirtazapine 7.5 MG TABLET PO (21:13)
[2024-03-29] MEDS: Sennosides 8.6 MG TABLET PO (21:13)
[2024-03-29] MEDS: risperiDONE 2 MG TABLET PO (21:13)
[2024-03-30 06:45] VITALS: BP 92/64
[2024-03-30] MEDS: Midodrine HCl 10 MG TABLET PO ×2 (06:45→17:48)
[2024-03-30 08:00] VITALS: BP 101/61; PULSE 70; RESP 16; TEMP 36.5; O2SAT 96
[2024-03-30] MEDS: risperiDONE 1 MG TABLET PO (09:23)
[2024-03-30] MEDS: Dextroamphetamine/Amphetamine XR 5 MG CAP.ER.24H PO (09:23)
[2024-03-30] MEDS: Famotidine 20 MG TABLET PO (09:23)
[2024-03-30] MEDS: Vortioxetine Hydrobromide 10 MG TABLET PO (09:23)
[2024-03-30] MEDS: Cyanocobalamin (Vitamin B-12) 1,000 MCG TABLET 1000 MCG PO (09:23)
[2024-03-30] MEDS: Memantine HCl 5 MG TABLET PO ×2 (09:23→20:03)
[2024-03-30] MEDS: Cholecalciferol (Vitamin D3) 25 MCG TABLET PO (09:24)
[2024-03-30 13:12] VITALS: BMI 18.6
[2024-03-30 13:41] VITALS: BP 130/56; PULSE 102; RESP 16
--- NOTE | 2024-03-30 15:13 | HO.PSYCHPN ---
Subjective Subjective Date of Service: 03/30/24 Reason For Visit: Schizoaffective disorder, unspecified type Subjective Notes: Section 8 Interim History: Pt slept through the night, speech bit more spontaneous when questions asked, per nursing, more visible on the unit. No SI/HI. Needs to be encouraged to eat and drink appropriately. No behavioral concerns. Medication Compliance: Yes Diagnostics Vital Signs (24Hr): Vital Signs - 24 hr 03/29/24 18:13 03/29/24 20:00 03/30/24 06:45 Temperature 98.1 F Pulse Rate 80 Respiratory Rate 18 Blood Pressure 91/67 98/53 L 92/64 Pulse Oximetry 95 Oxygen Delivery Method Room Air 03/30/24 08:00 03/30/24 13:41 Temperature 97.7 F Pulse Rate 70 102 H Respiratory Rate 16 16 Blood Pressure 101/61 130/56 L Pulse Oximetry 96 Oxygen Delivery Method Room Air BMI result Body Mass Index 18.6 Labs 03/09/24 10:51 03/09/24 10:51 Imaging Radiology Impressions: ITS Impressions Chest X-Ray 11/14/23 15:16 IMPRESSION: No evidence of acute disease. No pulmonary mass, pneumonia or pleural effusion. Chest CT 12/21/23 14:32 IMPRESSION: 1. No focal infiltrate is seen. 2. A 4 mm noncalcified subpleural nodule is seen within the posterior segment of the right upper lobe. According to the UPDATED 2017 Fleischner Society recommendations, the advised follow-up imaging for solid nodules < 6 mm is: LOW RISK PATIENT: No routine follow-up. HIGH RISK PATIENT: Optional CT at 12 months. 3. There is no thoracic lymphadenopathy or pleural effusion. 4. There is a marked kyphoscoliosis. No acute or aggressive osseous lesion is seen. 5. There is mild cholelithiasis. Fleischner guidelines were followed. KUB X-Ray 01/17/24 10:57 IMPRESSION: Multiple prominent, distended air-filled loops of small and large bowel. [id number] amount of stool in the colon. Correlation with clinical exam recommended to determine further management including possible additional imaging with CT scan of the abdomen and pelvis if abdominal pathology is suspected. This study was presented today January 19, 2024 for interpretation. Stat results provided at this time as requested by referring provider. Medications Medications Current Medications Cyanocobalamin (Cyanocobalamin (Vitamin B-12) 1,000 Mcg Tablet) 1,000 mcg PO DAILY [facility] Last Admin: 03/30/24 09:23 Dose: 1,000 mcg Famotidine (Famotidine 20 Mg Tablet) 20 mg PO DAILY [facility] Last Admin: 03/30/24 09:23 Dose: 20 mg Loperamide HCl (Loperamide Hcl 2 Mg Capsule) 2 mg PO Q4H PRN PRN Reason: loose stools Last Admin: 01/13/24 15:22 Dose: 2 mg Magnesium Hydroxide (Milk Of Magnesia 30 Ml Oral.Susp) 30 ml PO BID PRN PRN Reason: Constipation Last Admin: 03/25/24 09:00 Dose: 30 ml Memantine (Memantine Hcl 5 Mg Tablet) 5 mg PO BID [facility] Last Admin: 03/30/24 09:23 Dose: 5 mg Midodrine (Midodrine Hcl 10 Mg Tablet) 10 mg PO TID@0600,1200,1800 [facility] Last Admin: 03/30/24 13:43 Dose: Not Given Mirtazapine (Mirtazapine 7.5 Mg Tablet) 7.5 mg PO BEDTIME [facility] Last Admin: 03/29/24 21:13 Dose: 7.5 mg Polyethylene Glycol (Polyethylene Glycol 3350 17 Gm Powd.Pack) 17 gm PO DAILY PRN PRN Reason: contipation Last Admin: 03/14/24 08:50 Dose: 17 gm Risperidone (Risperidone 2 Mg Tablet) 2 mg PO BEDTIME [facility] Last Admin: 03/29/24 21:13 Dose: 2 mg Risperidone (Risperidone 1 Mg Tablet) 1 mg PO DAILY [facility] Last Admin: 03/30/24 09:23 Dose: 1 mg Senna (Sennosides 8.6 Mg Tablet) 8.6 mg PO BEDTIME [facility] Last Admin: 03/29/24 21:13 Dose: 8.6 mg Vitamin D (Cholecalciferol (Vitamin D3) 25 Mcg Tablet) 25 mcg PO DAILY [facility] Last Admin: 03/30/24 09:24 Dose: 25 mcg Vortioxetine (Vortioxetine Hydrobromide 10 Mg Tablet) 10 mg PO DAILY [facility] Last Admin: 03/30/24 09:23 Dose: 10 mg Allergies Allergies Allergy/AdvReac Type Severity Reaction Status Date / Time omeprazole Allergy Unknown Verified 10/30/23 00:09 Assessment & Plan Assessment & Plan (1) Schizophrenia: Status: Acute Code(s): F20.9 - Schizophrenia, unspecified (2) Failure to thrive in adult: Status: Acute Code(s): R62.7 - Adult failure to thrive Plan The patient is a 63-year-old male with a past history of schizophrenia who had been in and out of several facilities in the last year with severe hypoactive behavior, catatonic like symptoms and chronic noncompliance who needed to go for Section 7 and 8 for ECT. Even though that he had been treated with antipsychotics he remains still internally preoccupied. Plan 01/22/2024: No changes to current plan. Will add MiraLax 01/22: no changes 01/23 continue tx 01/24 continue tx. 01/25 continue tx 01/27 continue tx. 01/28: Continue current regimen and plans 01/29: Continue current regimen and plans. 01/30 continue tx. awaiting guardianship. 01/31 continue tx. 02/01 continue tx. 02/02 continue tx. 02/03 continue tx. 02/06 continue tx. 02/08: stable presentation. continue current mgmt. 02/09: no change 02/10: no change 02/11 continue same treatment 02/12 continue same treatment 02/13 continue tx. 02/14 continue tx. 02/15 continue tx 02/17 continue same treatment 02/18: appears slightly more wakeful and energetic than last time this designer writer met with pt. continue current mgmt. 02/19: as per yesterday. 02/20 continue tx. 02/21 continue tx. 02/22 continue tx. 02/24 continue tx. 02/25 no change ? worsening- follow vs get labs if continues to refuse food/hydration 02/27 continue tx. 02/28 continue tx. 03/02: slowed, appears tired/fatigued. poor PO intake. continue current mgmt. 03/03 continue tx. 03/04: continue current management and treatment plan. 03/05: Continue current management and treatment plan. 03/06: Continue current management and treatment plan. 03/07 continue tx. 03/10 cmp elevation in BUN, cr at baseline. BP low even with midodrine, may benefit from IV fluids if refuses increase fluid intake. 03/11 keep same treatment 03/12 keep same treatment 03/13 continue tx. 03/14 continue tx. 03/15 continue tx. 03/16 add am dose of risperidone 0.5mg po daily. 03/17 continue tx. 03/18 continue tx. 03/19 increase daily risperidone to 1mg po daily. continue risperidone 2mg po qhs. 03/20 continue tx. 03/24 continue same treatment 03/25: Continue current regimen and plans 03/26: Continue current regimen and plans 03/27 continue tx. switch provigil to adderall. increase trintellix. 03/28 continue tx. 03/29 continue td 03/30 increase adderall to 10mg po daily Reason for continued inpatient stay Substantial Risk for: inability to function Time Spent With Patient Time: Total time managing care of this patient today ____ minutes.
[2024-03-30 17:45] VITALS: BP 89/51; PULSE 77; RESP 16
[2024-03-30 20:00] VITALS: BP 106/66; PULSE 87; RESP 16; TEMP 37.1; O2SAT 95
[2024-03-30] MEDS: risperiDONE 2 MG TABLET PO (20:03)
[2024-03-30] MEDS: Sennosides 8.6 MG TABLET PO (20:03)
[2024-03-30] MEDS: Mirtazapine 7.5 MG TABLET PO (20:03)
[2024-03-31 06:21] VITALS: BP 90/54
[2024-03-31] MEDS: Midodrine HCl 10 MG TABLET PO ×3 (06:21→17:55)
[2024-03-31 06:24] VITALS: BP 90/54; PULSE 63
[2024-03-31 08:00] VITALS: BP 100/72; PULSE 83; RESP 16; TEMP 36.1; O2SAT 95
[2024-03-31] MEDS: Cholecalciferol (Vitamin D3) 25 MCG TABLET PO (09:00)
[2024-03-31] MEDS: Cyanocobalamin (Vitamin B-12) 1,000 MCG TABLET 1000 MCG PO (09:01)
[2024-03-31] MEDS: risperiDONE 1 MG TABLET PO (09:01)
[2024-03-31] MEDS: Dextroamphetamine/Amphetamine XR 5 MG CAP.ER.24H 10 MG PO (09:01)
[2024-03-31] MEDS: Memantine HCl 5 MG TABLET PO ×2 (09:01→20:50)
[2024-03-31] MEDS: Famotidine 20 MG TABLET PO (09:01)
[2024-03-31] MEDS: Vortioxetine Hydrobromide 10 MG TABLET PO (09:13)
[2024-03-31 11:55] VITALS: BP 105/68; PULSE 96; RESP 16; O2SAT 92
[2024-03-31 18:00] VITALS: BP 95/63; PULSE 87; RESP 16; O2SAT 96
[2024-03-31 20:00] VITALS: BP 105/64; PULSE 88; RESP 16; TEMP 36.4; O2SAT 96
[2024-03-31] MEDS: risperiDONE 2 MG TABLET PO (20:50)
[2024-03-31] MEDS: Mirtazapine 7.5 MG TABLET PO (20:50)
[2024-03-31] MEDS: Sennosides 8.6 MG TABLET PO (20:50)
[2024-04-01 06:14] VITALS: BP 85/46
[2024-04-01] MEDS: Midodrine HCl 10 MG TABLET PO ×3 (06:14→18:11)
[2024-04-01 06:18] VITALS: BP 85/46; PULSE 72
[2024-04-01 08:15] VITALS: BP 104/63; PULSE 67; RESP 18; TEMP 36.6; O2SAT 98
[2024-04-01] MEDS: Dextroamphetamine/Amphetamine XR 5 MG CAP.ER.24H 10 MG PO (08:52)
[2024-04-01] MEDS: Famotidine 20 MG TABLET PO (08:52)
[2024-04-01] MEDS: Cholecalciferol (Vitamin D3) 25 MCG TABLET PO (08:52)
[2024-04-01] MEDS: Vortioxetine Hydrobromide 10 MG TABLET PO (08:52)
[2024-04-01] MEDS: Memantine HCl 5 MG TABLET PO ×2 (08:52→20:00)
[2024-04-01] MEDS: risperiDONE 1 MG TABLET PO (08:52)
[2024-04-01] MEDS: Cyanocobalamin (Vitamin B-12) 1,000 MCG TABLET 1000 MCG PO (08:52)
--- NOTE | 2024-04-01 09:03 | HO.PSYCHPN ---
Subjective Subjective Date of Service: 03/31/24 Reason For Visit: Schizoaffective disorder, unspecified type Subjective Notes: Section 8 Interim History: Pt slept through the night, speech bit more spontaneous when questions asked, per nursing, more visible on the unit. No SI/HI. Needs to be encouraged to eat and drink appropriately. No behavioral concerns. Review of Systems Review of Systems Constipation Yes all other systems are reviewed and are negative and Unobtainable due to mental status Mental Status Exam Mental Status Exam Patient Appearance: Appropriate Patient Orientation: Person and Situation Level of Consciousness: Awake Patient Behavior: Guarded and Passive Mood Description: Withdrawn Affect Description: Constricted Patient Cognition Impaired: Yes Ability to Follow Directions: Good Speech Pattern: Clear Diagnostics Vital Signs (24Hr): Vital Signs - 24 hr 03/31/24 11:55 03/31/24 18:00 03/31/24 20:00 Temperature 97.5 F Pulse Rate 96 87 88 Respiratory Rate 16 16 16 Blood Pressure 105/68 95/63 105/64 Pulse Oximetry 92 96 96 Oxygen Delivery Method Room Air Room Air Room Air 04/01/24 06:14 04/01/24 06:18 Temperature Pulse Rate 72 Respiratory Rate Blood Pressure 85/46 L 85/46 L Pulse Oximetry Oxygen Delivery Method BMI result Body Mass Index 18.6 Labs 03/09/24 10:51 03/09/24 10:51 Imaging Radiology Impressions: ITS Impressions Chest X-Ray 11/14/23 15:16 IMPRESSION: No evidence of acute disease. No pulmonary mass, pneumonia or pleural effusion. Chest CT 12/21/23 14:32 IMPRESSION: 1. No focal infiltrate is seen. 2. A 4 mm noncalcified subpleural nodule is seen within the posterior segment of the right upper lobe. According to the UPDATED 2017 Fleischner Society recommendations, the advised follow-up imaging for solid nodules < 6 mm is: LOW RISK PATIENT: No routine follow-up. HIGH RISK PATIENT: Optional CT at 12 months. 3. There is no thoracic lymphadenopathy or pleural effusion. 4. There is a marked kyphoscoliosis. No acute or aggressive osseous lesion is seen. 5. There is mild cholelithiasis. Fleischner guidelines were followed. KUB X-Ray 01/17/24 10:57 IMPRESSION: Multiple prominent, distended air-filled loops of small and large bowel. [id number] amount of stool in the colon. Correlation with clinical exam recommended to determine further management including possible additional imaging with CT scan of the abdomen and pelvis if abdominal pathology is suspected. This study was presented today January 19, 2024 for interpretation. Stat results provided at this time as requested by referring provider. Medications Medications Current Medications Amphetamine/Dextroamphetamine (Dextroamphetamine/Amphetamine Xr 5 Mg Cap.Er.24h) 10 mg PO DAILY [facility] Last Admin: 04/01/24 08:52 Dose: 10 mg Cyanocobalamin (Cyanocobalamin (Vitamin B-12) 1,000 Mcg Tablet) 1,000 mcg PO DAILY [facility] Last Admin: 04/01/24 08:52 Dose: 1,000 mcg Famotidine (Famotidine 20 Mg Tablet) 20 mg PO DAILY [facility] Last Admin: 04/01/24 08:52 Dose: 20 mg Loperamide HCl (Loperamide Hcl 2 Mg Capsule) 2 mg PO Q4H PRN PRN Reason: loose stools Last Admin: 01/13/24 15:22 Dose: 2 mg Magnesium Hydroxide (Milk Of Magnesia 30 Ml Oral.Susp) 30 ml PO BID PRN PRN Reason: Constipation Last Admin: 03/25/24 09:00 Dose: 30 ml Memantine (Memantine Hcl 5 Mg Tablet) 5 mg PO BID [facility] Last Admin: 04/01/24 08:52 Dose: 5 mg Midodrine (Midodrine Hcl 10 Mg Tablet) 10 mg PO TID@0600,1200,1800 [facility] Last Admin: 04/01/24 06:14 Dose: 10 mg Mirtazapine (Mirtazapine 7.5 Mg Tablet) 7.5 mg PO BEDTIME [facility] Last Admin: 03/31/24 20:50 Dose: 7.5 mg Polyethylene Glycol (Polyethylene Glycol 3350 17 Gm Powd.Pack) 17 gm PO DAILY PRN PRN Reason: contipation Last Admin: 03/14/24 08:50 Dose: 17 gm Risperidone (Risperidone 2 Mg Tablet) 2 mg PO BEDTIME [facility] Last Admin: 03/31/24 20:50 Dose: 2 mg Risperidone (Risperidone 1 Mg Tablet) 1 mg PO DAILY [facility] Last Admin: 04/01/24 08:52 Dose: 1 mg Senna (Sennosides 8.6 Mg Tablet) 8.6 mg PO BEDTIME [facility] Last Admin: 03/31/24 20:50 Dose: 8.6 mg Vitamin D (Cholecalciferol (Vitamin D3) 25 Mcg Tablet) 25 mcg PO DAILY [facility] Last Admin: 04/01/24 08:52 Dose: 25 mcg Vortioxetine (Vortioxetine Hydrobromide 10 Mg Tablet) 10 mg PO DAILY [facility] Last Admin: 04/01/24 08:52 Dose: 10 mg Allergies Allergies Allergy/AdvReac Type Severity Reaction Status Date / Time omeprazole Allergy Unknown Verified 10/30/23 00:09 Assessment & Plan Assessment & Plan (1) Schizophrenia: Status: Acute Code(s): F20.9 - Schizophrenia, unspecified (2) Failure to thrive in adult: Status: Acute Code(s): R62.7 - Adult failure to thrive Plan The patient is a 63-year-old male with a past history of schizophrenia who had been in and out of several facilities in the last year with severe hypoactive behavior, catatonic like symptoms and chronic noncompliance who needed to go for [facility] 7 and 8 for ECT. Even though that he had been treated with antipsychotics he remains still internally preoccupied. Plan 01/22/2024: No changes to current plan. Will add MiraLax 01/22: no changes 01/23 continue tx 01/24 continue tx. 01/25 continue tx 01/27 continue tx. 01/28: Continue current regimen and plans 01/29: Continue current regimen and plans. 01/30 continue tx. awaiting guardianship. 01/31 continue tx. 02/01 continue tx. 02/02 continue tx. 02/03 continue tx. 02/06 continue tx. 02/08: stable presentation. continue current mgmt. 02/09: no change 02/10: no change 02/11 continue same treatment 02/12 continue same treatment 02/13 continue tx. 02/14 continue tx. 02/15 continue tx 02/17 continue same treatment 02/18: appears slightly more wakeful and energetic than last time this comic writer met with pt. continue current mgmt. 02/19: as per yesterday. 02/20 continue tx. 02/21 continue tx. 02/22 continue tx. 02/24 continue tx. 02/25 no change ? worsening- follow vs get labs if continues to refuse food/hydration 02/27 continue tx. 02/28 continue tx. 03/02: slowed, appears tired/fatigued. poor PO intake. continue current mgmt. 03/03 continue tx. 03/04: continue current management and treatment plan. 03/05: Continue current management and treatment plan. 03/06: Continue current management and treatment plan. 03/07 continue tx. 03/10 cmp elevation in BUN, cr at baseline. BP low even with midodrine, may benefit from IV fluids if refuses increase fluid intake. 03/11 keep same treatment 03/12 keep same treatment 03/13 continue tx. 03/14 continue tx. 03/15 continue tx. 03/16 add am dose of risperidone 0.5mg po daily. 03/17 continue tx. 03/18 continue tx. 03/19 increase daily risperidone to 1mg po daily. continue risperidone 2mg po qhs. 03/20 continue tx. 03/24 continue same treatment 03/25: Continue current regimen and plans 03/26: Continue current regimen and plans 03/27 continue tx. switch provigil to adderall. increase trintellix. 03/28 continue tx. 03/29 continue td 03/30 increase adderall to 10mg po daily Reason for continued inpatient stay Substantial Risk for: inability to function Time Spent With Patient Time: Total time managing care of this patient today ____ minutes.
--- NOTE | 2024-04-01 11:11 | HO.PSYCHPN ---
Subjective Subjective Date of Service: 04/01/24 Reason For Visit: Schizoaffective disorder, unspecified type Subjective Notes: Section 8 Interim History: Case reviewed with nursing staff treatment team. Pt mostly lethargic fatigued limited engagement needs encouragement to get out of bed eat or drink no response noted to modafinil or to stimulants to this point Mental Status Exam Mental Status Exam Patient Appearance: Appropriate Patient Orientation: Person and Situation Level of Consciousness: Awake Patient Behavior: Guarded and Passive Mood Description: Withdrawn Affect Description: Constricted Patient Cognition Impaired: Yes Ability to Follow Directions: Good Speech Pattern: Clear Depressive Symptoms: Increased Anxiety, Changes in Appetite and Loss of Energy Abnormal Motor Activity Signs and Symptoms: Psychomotor Retardation Judgement: Poor Diagnostics Vital Signs (24Hr): Vital Signs - 24 hr 03/31/24 11:55 03/31/24 18:00 03/31/24 20:00 Temperature 97.5 F Pulse Rate 96 87 88 Respiratory Rate 16 16 16 Blood Pressure 105/68 95/63 105/64 Pulse Oximetry 92 96 96 Oxygen Delivery Method Room Air Room Air Room Air 04/01/24 06:14 04/01/24 06:18 04/01/24 08:15 Temperature 97.9 F Pulse Rate 72 67 Respiratory Rate 18 Blood Pressure 85/46 L 85/46 L 104/63 Pulse Oximetry 98 Oxygen Delivery Method Room Air BMI result Body Mass Index 18.6 Labs 03/09/24 10:51 03/09/24 10:51 Imaging Radiology Impressions: ITS Impressions Chest X-Ray 11/14/23 15:16 IMPRESSION: No evidence of acute disease. No pulmonary mass, pneumonia or pleural effusion. Chest CT 12/21/23 14:32 IMPRESSION: 1. No focal infiltrate is seen. 2. A 4 mm noncalcified subpleural nodule is seen within the posterior segment of the right upper lobe. According to the UPDATED 2017 Fleischner Society recommendations, the advised follow-up imaging for solid nodules < 6 mm is: LOW RISK PATIENT: No routine follow-up. HIGH RISK PATIENT: Optional CT at 12 months. 3. There is no thoracic lymphadenopathy or pleural effusion. 4. There is a marked kyphoscoliosis. No acute or aggressive osseous lesion is seen. 5. There is mild cholelithiasis. Fleischner guidelines were followed. KUB X-Ray 01/17/24 10:57 IMPRESSION: Multiple prominent, distended air-filled loops of small and large bowel. [id number] amount of stool in the colon. Correlation with clinical exam recommended to determine further management including possible additional imaging with CT scan of the abdomen and pelvis if abdominal pathology is suspected. This study was presented today January 19, 2024 for interpretation. Stat results provided at this time as requested by referring provider. Medications Medications Current Medications Amphetamine/Dextroamphetamine (Dextroamphetamine/Amphetamine Xr 5 Mg Cap.Er.24h) 10 mg PO DAILY [facility] Last Admin: 04/01/24 08:52 Dose: 10 mg Cyanocobalamin (Cyanocobalamin (Vitamin B-12) 1,000 Mcg Tablet) 1,000 mcg PO DAILY [facility] Last Admin: 04/01/24 08:52 Dose: 1,000 mcg Famotidine (Famotidine 20 Mg Tablet) 20 mg PO DAILY [facility] Last Admin: 04/01/24 08:52 Dose: 20 mg Loperamide HCl (Loperamide Hcl 2 Mg Capsule) 2 mg PO Q4H PRN PRN Reason: loose stools Last Admin: 01/13/24 15:22 Dose: 2 mg Magnesium Hydroxide (Milk Of Magnesia 30 Ml Oral.Susp) 30 ml PO BID PRN PRN Reason: Constipation Last Admin: 03/25/24 09:00 Dose: 30 ml Memantine (Memantine Hcl 5 Mg Tablet) 5 mg PO BID [facility] Last Admin: 04/01/24 08:52 Dose: 5 mg Midodrine (Midodrine Hcl 10 Mg Tablet) 10 mg PO TID@0600,1200,1800 [facility] Last Admin: 04/01/24 06:14 Dose: 10 mg Mirtazapine (Mirtazapine 7.5 Mg Tablet) 7.5 mg PO BEDTIME [facility] Last Admin: 03/31/24 20:50 Dose: 7.5 mg Polyethylene Glycol (Polyethylene Glycol 3350 17 Gm Powd.Pack) 17 gm PO DAILY PRN PRN Reason: contipation Last Admin: 03/14/24 08:50 Dose: 17 gm Risperidone (Risperidone 2 Mg Tablet) 2 mg PO BEDTIME [facility] Last Admin: 03/31/24 20:50 Dose: 2 mg Risperidone (Risperidone 1 Mg Tablet) 1 mg PO DAILY [facility] Last Admin: 04/01/24 08:52 Dose: 1 mg Senna (Sennosides 8.6 Mg Tablet) 8.6 mg PO BEDTIME [facility] Last Admin: 03/31/24 20:50 Dose: 8.6 mg Vitamin D (Cholecalciferol (Vitamin D3) 25 Mcg Tablet) 25 mcg PO DAILY [facility] Last Admin: 04/01/24 08:52 Dose: 25 mcg Vortioxetine (Vortioxetine Hydrobromide 10 Mg Tablet) 10 mg PO DAILY [facility] Last Admin: 04/01/24 08:52 Dose: 10 mg Allergies Allergies Allergy/AdvReac Type Severity Reaction Status Date / Time omeprazole Allergy Unknown Verified 10/30/23 00:09 Assessment & Plan Assessment & Plan (1) Schizophrenia: Status: Acute Code(s): F20.9 - Schizophrenia, unspecified (2) Failure to thrive in adult: Status: Acute Code(s): R62.7 - Adult failure to thrive Plan The patient is a 63-year-old male with a past history of schizophrenia who had been in and out of several facilities in the last year with severe hypoactive behavior, catatonic like symptoms and chronic noncompliance who needed to go for Section 7 and 8 for ECT. Even though that he had been treated with antipsychotics he remains still internally preoccupied. Plan 01/22/2024: No changes to current plan. Will add MiraLax 01/22: no changes 01/23 continue tx 01/24 continue tx. 01/25 continue tx 01/27 continue tx. 01/28: Continue current regimen and plans 01/29: Continue current regimen and plans. 01/30 continue tx. awaiting guardianship. 01/31 continue tx. 02/01 continue tx. 02/02 continue tx. 02/03 continue tx. 02/06 continue tx. 02/08: stable presentation. continue current mgmt. 02/09: no change 02/10: no change 02/11 continue same treatment 02/12 continue same treatment 02/13 continue tx. 02/14 continue tx. 02/15 continue tx 02/17 continue same treatment 02/18: appears slightly more wakeful and energetic than last time this underwriter solicitation director met with pt. continue current mgmt. 02/19: as per yesterday. 02/20 continue tx. 02/21 continue tx. 02/22 continue tx. 02/24 continue tx. 02/25 no change ? worsening- follow vs get labs if continues to refuse food/hydration 02/27 continue tx. 02/28 continue tx. 03/02: slowed, appears tired/fatigued. poor PO intake. continue current mgmt. 03/03 continue tx. 03/04: continue current management and treatment plan. 03/05: Continue current management and treatment plan. 03/06: Continue current management and treatment plan. 03/07 continue tx. 03/10 cmp elevation in BUN, cr at baseline. BP low even with midodrine, may benefit from IV fluids if refuses increase fluid intake. 03/11 keep same treatment 03/12 keep same treatment 03/13 continue tx. 03/14 continue tx. 03/15 continue tx. 03/16 add am dose of risperidone 0.5mg po daily. 03/17 continue tx. 03/18 continue tx. 03/19 increase daily risperidone to 1mg po daily. continue risperidone 2mg po qhs. 03/20 continue tx. 03/24 continue same treatment 03/25: Continue current regimen and plans 03/26: Continue current regimen and plans 03/27 continue tx. switch provigil to adderall. increase trintellix. 03/28 continue tx. 03/29 continue td 03/30 increase adderall to 10mg po daily 04/01/2024 Continue Adderall mirtazapine Risperdal do not appear to be effective we would consider trial of unilateral ECT consider more stimulating antipsychotic Reason for continued inpatient stay Substantial Risk for: inability to function, rapid decompensation and med/psych decompensation Time Spent With Patient Time: Total time managing care of this patient today ____ minutes.
[2024-04-01 11:23] VITALS: BP 82/61
[2024-04-01 18:11] VITALS: BP 95/68
[2024-04-01 20:00] VITALS: BP 90/45; PULSE 83; RESP 16; TEMP 36.8; O2SAT 93
[2024-04-01] MEDS: Mirtazapine 7.5 MG TABLET PO (20:00)
[2024-04-01] MEDS: risperiDONE 2 MG TABLET PO (20:00)
[2024-04-01] MEDS: Sennosides 8.6 MG TABLET PO (20:00)
[2024-04-02 06:18] VITALS: BP 98/53
[2024-04-02] MEDS: Midodrine HCl 10 MG TABLET PO ×3 (06:18→17:31)
[2024-04-02 06:20] VITALS: BP 98/53; PULSE 75
[2024-04-02 08:05] VITALS: BP 88/51; PULSE 66; RESP 16; TEMP 36.2; O2SAT 94
[2024-04-02] MEDS: Cyanocobalamin (Vitamin B-12) 1,000 MCG TABLET 1000 MCG PO (08:06)
[2024-04-02] MEDS: risperiDONE 1 MG TABLET PO (08:06)
[2024-04-02] MEDS: Cholecalciferol (Vitamin D3) 25 MCG TABLET PO (08:07)
[2024-04-02] MEDS: Vortioxetine Hydrobromide 10 MG TABLET PO (08:07)
[2024-04-02] MEDS: Dextroamphetamine/Amphetamine XR 5 MG CAP.ER.24H 10 MG PO (08:07)
[2024-04-02] MEDS: Famotidine 20 MG TABLET PO (08:07)
[2024-04-02] MEDS: Memantine HCl 5 MG TABLET PO ×2 (08:07→20:27)
--- NOTE | 2024-04-02 10:26 | HO.PSYCHPN ---
Subjective Subjective Date of Service: 04/02/24 Reason For Visit: Schizoaffective disorder, unspecified type Subjective Notes: Section 8 Interim History: Patient seen psychiatric follow-up patient's mood depressed hopeless helpless withdrawn Mental Status Exam Mental Status Exam Patient Appearance: Appropriate Patient Orientation: Person and Situation Level of Consciousness: Awake Patient Behavior: Guarded and Passive Mood Description: Withdrawn Affect Description: Constricted Patient Cognition Impaired: Yes Ability to Follow Directions: Good Speech Pattern: Clear Depressive Symptoms: Increased Anxiety, Changes in Appetite and Loss of Energy Abnormal Motor Activity Signs and Symptoms: Psychomotor Retardation Judgement: Poor Diagnostics Vital Signs (24Hr): Vital Signs - 24 hr 04/01/24 11:23 04/01/24 18:11 04/01/24 20:00 Temperature 98.3 F Pulse Rate 83 Respiratory Rate 16 Blood Pressure 82/61 L 95/68 90/45 L Pulse Oximetry 93 Oxygen Delivery Method Room Air 04/02/24 06:18 04/02/24 06:20 04/02/24 08:05 Temperature 97.2 F Pulse Rate 75 66 Respiratory Rate 16 Blood Pressure 98/53 L 98/53 L 88/51 L Pulse Oximetry 94 Oxygen Delivery Method Room Air BMI result Body Mass Index 18.6 Labs 03/09/24 10:51 03/09/24 10:51 Imaging Radiology Impressions: ITS Impressions Chest X-Ray 11/14/23 15:16 IMPRESSION: No evidence of acute disease. No pulmonary mass, pneumonia or pleural effusion. Chest CT 12/21/23 14:32 IMPRESSION: 1. No focal infiltrate is seen. 2. A 4 mm noncalcified subpleural nodule is seen within the posterior segment of the right upper lobe. According to the UPDATED 2017 Fleischner Society recommendations, the advised follow-up imaging for solid nodules < 6 mm is: LOW RISK PATIENT: No routine follow-up. HIGH RISK PATIENT: Optional CT at 12 months. 3. There is no thoracic lymphadenopathy or pleural effusion. 4. There is a marked kyphoscoliosis. No acute or aggressive osseous lesion is seen. 5. There is mild cholelithiasis. Fleischner guidelines were followed. KUB X-Ray 01/17/24 10:57 IMPRESSION: Multiple prominent, distended air-filled loops of small and large bowel. [id number]-[id number] amount of stool in the colon. Correlation with clinical exam recommended to determine further management including possible additional imaging with CT scan of the abdomen and pelvis if abdominal pathology is suspected. This study was presented today January 19, 2024 for interpretation. Stat results provided at this time as requested by referring provider. Medications Medications Current Medications Amphetamine/Dextroamphetamine (Dextroamphetamine/Amphetamine Xr 5 Mg Cap.Er.24h) 10 mg PO DAILY [facility] Last Admin: 04/02/24 08:07 Dose: 10 mg Cyanocobalamin (Cyanocobalamin (Vitamin B-12) 1,000 Mcg Tablet) 1,000 mcg PO DAILY [facility] Last Admin: 04/02/24 08:06 Dose: 1,000 mcg Famotidine (Famotidine 20 Mg Tablet) 20 mg PO DAILY [facility] Last Admin: 04/02/24 08:07 Dose: 20 mg Loperamide HCl (Loperamide Hcl 2 Mg Capsule) 2 mg PO Q4H PRN PRN Reason: loose stools Last Admin: 01/13/24 15:22 Dose: 2 mg Magnesium Hydroxide (Milk Of Magnesia 30 Ml Oral.Susp) 30 ml PO BID PRN PRN Reason: Constipation Last Admin: 03/25/24 09:00 Dose: 30 ml Memantine (Memantine Hcl 5 Mg Tablet) 5 mg PO BID [facility] Last Admin: 04/02/24 08:07 Dose: 5 mg Midodrine (Midodrine Hcl 10 Mg Tablet) 10 mg PO TID@0600,1200,1800 [facility] Last Admin: 04/02/24 06:18 Dose: 10 mg Mirtazapine (Mirtazapine 7.5 Mg Tablet) 7.5 mg PO BEDTIME [facility] Last Admin: 04/01/24 20:00 Dose: 7.5 mg Polyethylene Glycol (Polyethylene Glycol 3350 17 Gm Powd.Pack) 17 gm PO DAILY PRN PRN Reason: contipation Last Admin: 03/14/24 08:50 Dose: 17 gm Risperidone (Risperidone 2 Mg Tablet) 2 mg PO BEDTIME [facility] Last Admin: 04/01/24 20:00 Dose: 2 mg Risperidone (Risperidone 1 Mg Tablet) 1 mg PO DAILY [facility] Last Admin: 04/02/24 08:06 Dose: 1 mg Senna (Sennosides 8.6 Mg Tablet) 8.6 mg PO BEDTIME [facility] Last Admin: 04/01/24 20:00 Dose: 8.6 mg Vitamin D (Cholecalciferol (Vitamin D3) 25 Mcg Tablet) 25 mcg PO DAILY [facility] Last Admin: 04/02/24 08:07 Dose: 25 mcg Vortioxetine (Vortioxetine Hydrobromide 10 Mg Tablet) 10 mg PO DAILY [facility] Last Admin: 04/02/24 08:07 Dose: 10 mg Allergies Allergies Allergy/AdvReac Type Severity Reaction Status Date / Time omeprazole Allergy Unknown Verified 10/30/23 00:09 Assessment & Plan Assessment & Plan (1) Schizophrenia: Status: Acute Code(s): F20.9 - Schizophrenia, unspecified (2) Failure to thrive in adult: Status: Acute Code(s): R62.7 - Adult failure to thrive Plan The patient is a 63-year-old male with a past history of schizophrenia who had been in and out of several facilities in the last year with severe hypoactive behavior, catatonic like symptoms and chronic noncompliance who needed to go for [facility] 7 and 8 for ECT. Even though that he had been treated with antipsychotics he remains still internally preoccupied. Plan 01/22/2024: No changes to current plan. Will add MiraLax 01/22: no changes 01/23 continue tx 01/24 continue tx. 01/25 continue tx 01/27 continue tx. 01/28: Continue current regimen and plans 01/29: Continue current regimen and plans. 01/30 continue tx. awaiting guardianship. 01/31 continue tx. 02/01 continue tx. 02/02 continue tx. 02/03 continue tx. 02/06 continue tx. 02/08: stable presentation. continue current mgmt. 02/09: no change 02/10: no change 02/11 continue same treatment 02/12 continue same treatment 02/13 continue tx. 02/14 continue tx. 02/15 continue tx 02/17 continue same treatment 02/18: appears slightly more wakeful and energetic than last time this automobile and property underwriter met with pt. continue current mgmt. 02/19: as per yesterday. 02/20 continue tx. 02/21 continue tx. 02/22 continue tx. 02/24 continue tx. 02/25 no change ? worsening- follow vs get labs if continues to refuse food/hydration 02/27 continue tx. 02/28 continue tx. 03/02: slowed, appears tired/fatigued. poor PO intake. continue current mgmt. 03/03 continue tx. 03/04: continue current management and treatment plan. 03/05: Continue current management and treatment plan. 03/06: Continue current management and treatment plan. 03/07 continue tx. 03/10 cmp elevation in BUN, cr at baseline. BP low even with midodrine, may benefit from IV fluids if refuses increase fluid intake. 03/11 keep same treatment 03/12 keep same treatment 03/13 continue tx. 03/14 continue tx. 03/15 continue tx. 03/16 add am dose of risperidone 0.5mg po daily. 03/17 continue tx. 03/18 continue tx. 03/19 increase daily risperidone to 1mg po daily. continue risperidone 2mg po qhs. 03/20 continue tx. 03/24 continue same treatment 03/25: Continue current regimen and plans 03/26: Continue current regimen and plans 03/27 continue tx. switch provigil to adderall. increase trintellix. 03/28 continue tx. 03/29 continue td 03/30 increase adderall to 10mg po daily 04/01/2024 Continue Adderall mirtazapine Risperdal do not appear to be effective we would consider trial of unilateral ECT consider more stimulating antipsychotic 04/02/2024 See above continue recommendations encourage out of bed Reason for continued inpatient stay Substantial Risk for: inability to function, rapid decompensation and med/psych decompensation Time Spent With Patient Time: Total time managing care of this patient today ____ minutes.
[2024-04-02 11:56] VITALS: BP 103/61
[2024-04-02 17:31] VITALS: BP 94/63
[2024-04-02 20:00] VITALS: BP 124/61; PULSE 86; RESP 16; TEMP 36.8; O2SAT 94
[2024-04-02] MEDS: risperiDONE 2 MG TABLET PO (20:27)
[2024-04-02] MEDS: Mirtazapine 7.5 MG TABLET PO (20:27)
[2024-04-02] MEDS: Sennosides 8.6 MG TABLET PO (20:29)
[2024-04-03 06:15] VITALS: BP 128/50
[2024-04-03] MEDS: Midodrine HCl 10 MG TABLET PO ×3 (06:15→17:47)
[2024-04-03 07:53] VITALS: BP 124/80; PULSE 86; RESP 16; TEMP 36.2; O2SAT 95
[2024-04-03] MEDS: Cyanocobalamin (Vitamin B-12) 1,000 MCG TABLET 1000 MCG PO (09:35)
[2024-04-03] MEDS: Cholecalciferol (Vitamin D3) 25 MCG TABLET PO (09:35)
[2024-04-03] MEDS: Vortioxetine Hydrobromide 10 MG TABLET PO (09:35)
[2024-04-03] MEDS: Memantine HCl 5 MG TABLET PO ×2 (09:35→20:55)
[2024-04-03] MEDS: risperiDONE 1 MG TABLET PO (09:35)
[2024-04-03] MEDS: Dextroamphetamine/Amphetamine XR 5 MG CAP.ER.24H 10 MG PO (09:35)
[2024-04-03] MEDS: Famotidine 20 MG TABLET PO (09:35)
[2024-04-03 11:45] VITALS: BP 109/80
--- NOTE | 2024-04-03 12:12 | P.PNPSI_ITS ---
Subjective Subjective Date of Service: 04/03/24 Reason For Visit: Schizoaffective disorder, unspecified type Subjective Notes: Conditional Voluntary Interim History: Pt sleeping through the night. He is mostly in his bed, minimally interacting with peers or staff. taking medications. Review of Systems Review of Systems Constipation Yes all other systems are reviewed and are negative and Unobtainable due to mental status Mental Status Exam Mental Status Exam Patient Appearance: Appropriate Patient Orientation: Person and Situation Level of Consciousness: Awake Patient Behavior: Guarded and Passive Mood Description: Withdrawn Affect Description: Constricted Patient Cognition Impaired: Yes Ability to Follow Directions: Good Speech Pattern: Clear Diagnostics Vital Signs (24Hr): Vital Signs - 24 hr 04/02/24 17:31 04/02/24 20:00 04/03/24 06:15 Temperature 98.2 F Pulse Rate 86 Respiratory Rate 16 Blood Pressure 94/63 124/61 128/50 L Pulse Oximetry 94 Oxygen Delivery Method Room Air 04/03/24 07:53 04/03/24 11:45 Temperature 97.1 F Pulse Rate 86 Respiratory Rate 16 Blood Pressure 124/80 109/80 Pulse Oximetry 95 Oxygen Delivery Method Room Air BMI result Body Mass Index 18.6 Labs 03/09/24 10:51 03/09/24 10:51 Imaging Radiology Impressions: ITS Impressions Chest X-Ray 11/14/23 15:16 IMPRESSION: No evidence of acute disease. No pulmonary mass, pneumonia or pleural effusion. Chest CT 12/21/23 14:32 IMPRESSION: 1. No focal infiltrate is seen. 2. A 4 mm noncalcified subpleural nodule is seen within the posterior segment of the right upper lobe. According to the UPDATED 2017 Fleischner Society recommendations, the advised follow-up imaging for solid nodules < 6 mm is: LOW RISK PATIENT: No routine follow-up. HIGH RISK PATIENT: Optional CT at 12 months. 3. There is no thoracic lymphadenopathy or pleural effusion. 4. There is a marked kyphoscoliosis. No acute or aggressive osseous lesion is seen. 5. There is mild cholelithiasis. Fleischner guidelines were followed. KUB X-Ray 01/17/24 10:57 IMPRESSION: Multiple prominent, distended air-filled loops of small and large bowel. [id number]-[id number] amount of stool in the colon. Correlation with clinical exam recommended to determine further management including possible additional imaging with CT scan of the abdomen and pelvis if abdominal pathology is suspected. This study was presented today January 19, 2024 for interpretation. Stat results provided at this time as requested by referring provider. Medications Medications Current Medications Amphetamine/Dextroamphetamine (Dextroamphetamine/Amphetamine Xr 5 Mg Cap.Er.24h) 10 mg PO DAILY [facility] Last Admin: 04/03/24 09:35 Dose: 10 mg Cyanocobalamin (Cyanocobalamin (Vitamin B-12) 1,000 Mcg Tablet) 1,000 mcg PO DAILY [facility] Last Admin: 04/03/24 09:35 Dose: 1,000 mcg Famotidine (Famotidine 20 Mg Tablet) 20 mg PO DAILY [facility] Last Admin: 04/03/24 09:35 Dose: 20 mg Loperamide HCl (Loperamide Hcl 2 Mg Capsule) 2 mg PO Q4H PRN PRN Reason: loose stools Last Admin: 01/13/24 15:22 Dose: 2 mg Magnesium Hydroxide (Milk Of Magnesia 30 Ml Oral.Susp) 30 ml PO BID PRN PRN Reason: Constipation Last Admin: 03/25/24 09:00 Dose: 30 ml Memantine (Memantine Hcl 5 Mg Tablet) 5 mg PO BID [facility] Last Admin: 04/03/24 09:35 Dose: 5 mg Midodrine (Midodrine Hcl 10 Mg Tablet) 10 mg PO TID@0600,1200,1800 [facility] Last Admin: 04/03/24 11:46 Dose: 10 mg Mirtazapine (Mirtazapine 7.5 Mg Tablet) 7.5 mg PO BEDTIME [facility] Last Admin: 04/02/24 20:27 Dose: 7.5 mg Polyethylene Glycol (Polyethylene Glycol 3350 17 Gm Powd.Pack) 17 gm PO DAILY PRN PRN Reason: contipation Last Admin: 03/14/24 08:50 Dose: 17 gm Risperidone (Risperidone 2 Mg Tablet) 2 mg PO BEDTIME [facility] Last Admin: 04/02/24 20:27 Dose: 2 mg Risperidone (Risperidone 1 Mg Tablet) 1 mg PO DAILY [facility] Last Admin: 04/03/24 09:35 Dose: 1 mg Senna (Sennosides 8.6 Mg Tablet) 8.6 mg PO BEDTIME [facility] Last Admin: 04/02/24 20:29 Dose: 8.6 mg Vitamin D (Cholecalciferol (Vitamin D3) 25 Mcg Tablet) 25 mcg PO DAILY [facility] Last Admin: 04/03/24 09:35 Dose: 25 mcg Vortioxetine (Vortioxetine Hydrobromide 10 Mg Tablet) 10 mg PO DAILY [facility] Last Admin: 04/03/24 09:35 Dose: 10 mg Allergies Allergies Allergy/AdvReac Type Severity Reaction Status Date / Time omeprazole Allergy Unknown Verified 10/30/23 00:09 Assessment & Plan Assessment & Plan (1) Schizophrenia: Status: Acute Code(s): F20.9 - Schizophrenia, unspecified (2) Failure to thrive in adult: Status: Acute Code(s): R62.7 - Adult failure to thrive Plan The patient is a 63-year-old male with a past history of schizophrenia who had been in and out of several facilities in the last year with severe hypoactive behavior, catatonic like symptoms and chronic noncompliance who needed to go for [facility] 8 for ECT. Even though that he had been treated with antipsychotics he remains still internally preoccupied. Plan 01/22/2024: No changes to current plan. Will add MiraLax 01/22: no changes 01/23 continue tx 01/24 continue tx. 01/25 continue tx 01/27 continue tx. 01/28: Continue current regimen and plans 01/29: Continue current regimen and plans. 01/30 continue tx. awaiting guardianship. 01/31 continue tx. 02/01 continue tx. 02/02 continue tx. 02/03 continue tx. 02/06 continue tx. 02/08: stable presentation. continue current mgmt. 02/09: no change 02/10: no change 02/11 continue same treatment 02/12 continue same treatment 02/13 continue tx. 02/14 continue tx. 02/15 continue tx 02/17 continue same treatment 02/18: appears slightly more wakeful and energetic than last time this justowriter operator met with pt. continue current mgmt. 02/19: as per yesterday. 02/20 continue tx. 02/21 continue tx. 02/22 continue tx. 02/24 continue tx. 02/25 no change ? worsening- follow vs get labs if continues to refuse food/hydration 02/27 continue tx. 02/28 continue tx. 03/02: slowed, appears tired/fatigued. poor PO intake. continue current mgmt. 03/03 continue tx. 03/04: continue current management and treatment plan. 03/05: Continue current management and treatment plan. 03/06: Continue current management and treatment plan. 03/07 continue tx. 03/10 cmp elevation in BUN, cr at baseline. BP low even with midodrine, may benefit from IV fluids if refuses increase fluid intake. 03/11 keep same treatment 03/12 keep same treatment 03/13 continue tx. 03/14 continue tx. 03/15 continue tx. 03/16 add am dose of risperidone 0.5mg po daily. 03/17 continue tx. 03/18 continue tx. 03/19 increase daily risperidone to 1mg po daily. continue risperidone 2mg po qhs. 03/20 continue tx. 03/24 continue same treatment 03/25: Continue current regimen and plans 03/26: Continue current regimen and plans 03/27 continue tx. switch provigil to adderall. increase trintellix. 03/28 continue tx. 03/29 continue td 03/30 increase adderall to 10mg po daily 04/01/2024 Continue Adderall mirtazapine Risperdal do not appear to be effective we would consider trial of unilateral ECT consider more stimulating antipsychotic 04/02/2024 See above continue recommendations encourage out of bed 04/03 continue tx. Reason for continued inpatient stay Substantial Risk for: inability to function Time Spent With Patient Time: Total time managing care of this patient today ____ minutes.
[2024-04-03 17:46] VITALS: BP 120/79
[2024-04-03 20:00] VITALS: BP 103/68; PULSE 78; RESP 18; TEMP 36.6; O2SAT 95
[2024-04-03] MEDS: risperiDONE 2 MG TABLET PO (20:55)
[2024-04-03] MEDS: Mirtazapine 7.5 MG TABLET PO (20:55)
[2024-04-03] MEDS: Sennosides 8.6 MG TABLET PO (20:55)
[2024-04-04 06:45] VITALS: BP 81/53
[2024-04-04] MEDS: Midodrine HCl 10 MG TABLET PO ×3 (06:45→17:10)
[2024-04-04 08:00] VITALS: BP 93/61; PULSE 81; RESP 16; TEMP 36.4; O2SAT 97
[2024-04-04] MEDS: risperiDONE 1 MG TABLET PO (08:56)
[2024-04-04] MEDS: Vortioxetine Hydrobromide 10 MG TABLET PO (08:56)
[2024-04-04] MEDS: Dextroamphetamine/Amphetamine XR 5 MG CAP.ER.24H 10 MG PO (08:56)
[2024-04-04] MEDS: Memantine HCl 5 MG TABLET PO ×2 (08:56→19:58)
[2024-04-04] MEDS: Famotidine 20 MG TABLET PO (08:56)
[2024-04-04] MEDS: Cyanocobalamin (Vitamin B-12) 1,000 MCG TABLET 1000 MCG PO (08:56)
[2024-04-04] MEDS: Cholecalciferol (Vitamin D3) 25 MCG TABLET PO (08:56)
--- NOTE | 2024-04-04 08:59 | P.PNPSI_ITS ---
Subjective Subjective Date of Service: 04/04/24 Reason For Visit: Schizoaffective disorder, unspecified type Subjective Notes: Section 8 Interim History: Pt sleeping through the night. He is mostly in his bed, minimally interacting with peers or staff. taking medications. He has been visible for meals. Review of Systems Review of Systems Constipation Yes all other systems are reviewed and are negative and Unobtainable due to mental status Mental Status Exam Mental Status Exam Patient Appearance: Appropriate Patient Orientation: Person and Situation Level of Consciousness: Awake Patient Behavior: Guarded and Passive Mood Description: Withdrawn Affect Description: Constricted Patient Cognition Impaired: Yes Ability to Follow Directions: Good Speech Pattern: Clear Diagnostics Vital Signs (24Hr): Vital Signs - 24 hr 04/03/24 11:45 04/03/24 17:46 04/03/24 20:00 Temperature 98 F Pulse Rate 78 Respiratory Rate 18 Blood Pressure 109/80 120/79 103/68 Pulse Oximetry 95 Oxygen Delivery Method Room Air 04/04/24 06:45 Temperature Pulse Rate Respiratory Rate Blood Pressure 81/53 L Pulse Oximetry Oxygen Delivery Method BMI result Body Mass Index 18.6 Labs 03/09/24 10:51 03/09/24 10:51 Imaging Radiology Impressions: ITS Impressions Chest X-Ray 11/14/23 15:16 IMPRESSION: No evidence of acute disease. No pulmonary mass, pneumonia or pleural effusion. Chest CT 12/21/23 14:32 IMPRESSION: 1. No focal infiltrate is seen. 2. A 4 mm noncalcified subpleural nodule is seen within the posterior segment of the right upper lobe. According to the UPDATED 2017 Fleischner Society recommendations, the advised follow-up imaging for solid nodules < 6 mm is: LOW RISK PATIENT: No routine follow-up. HIGH RISK PATIENT: Optional CT at 12 months. 3. There is no thoracic lymphadenopathy or pleural effusion. 4. There is a marked kyphoscoliosis. No acute or aggressive osseous lesion is seen. 5. There is mild cholelithiasis. Fleischner guidelines were followed. KUB X-Ray 01/17/24 10:57 IMPRESSION: Multiple prominent, distended air-filled loops of small and large bowel. [id number] amount of stool in the colon. Correlation with clinical exam recommended to determine further management including possible additional imaging with CT scan of the abdomen and pelvis if abdominal pathology is suspected. This study was presented today January 19, 2024 for interpretation. Stat results provided at this time as requested by referring provider. Medications Medications Current Medications Amphetamine/Dextroamphetamine (Dextroamphetamine/Amphetamine Xr 5 Mg Cap.Er.24h) 10 mg PO DAILY [facility] Last Admin: 04/03/24 09:35 Dose: 10 mg Cyanocobalamin (Cyanocobalamin (Vitamin B-12) 1,000 Mcg Tablet) 1,000 mcg PO DAILY [facility] Last Admin: 04/03/24 09:35 Dose: 1,000 mcg Famotidine (Famotidine 20 Mg Tablet) 20 mg PO DAILY [facility] Last Admin: 04/03/24 09:35 Dose: 20 mg Loperamide HCl (Loperamide Hcl 2 Mg Capsule) 2 mg PO Q4H PRN PRN Reason: loose stools Last Admin: 01/13/24 15:22 Dose: 2 mg Magnesium Hydroxide (Milk Of Magnesia 30 Ml Oral.Susp) 30 ml PO BID PRN PRN Reason: Constipation Last Admin: 03/25/24 09:00 Dose: 30 ml Memantine (Memantine Hcl 5 Mg Tablet) 5 mg PO BID [facility] Last Admin: 04/03/24 20:55 Dose: 5 mg Midodrine (Midodrine Hcl 10 Mg Tablet) 10 mg PO TID@0600,1200,1800 [facility] Last Admin: 04/04/24 06:45 Dose: 10 mg Mirtazapine (Mirtazapine 7.5 Mg Tablet) 7.5 mg PO BEDTIME [facility] Last Admin: 04/03/24 20:55 Dose: 7.5 mg Polyethylene Glycol (Polyethylene Glycol 3350 17 Gm Powd.Pack) 17 gm PO DAILY PRN PRN Reason: contipation Last Admin: 03/14/24 08:50 Dose: 17 gm Risperidone (Risperidone 2 Mg Tablet) 2 mg PO BEDTIME [facility] Last Admin: 04/03/24 20:55 Dose: 2 mg Risperidone (Risperidone 1 Mg Tablet) 1 mg PO DAILY [facility] Last Admin: 04/03/24 09:35 Dose: 1 mg Senna (Sennosides 8.6 Mg Tablet) 8.6 mg PO BEDTIME [facility] Last Admin: 04/03/24 20:55 Dose: 8.6 mg Vitamin D (Cholecalciferol (Vitamin D3) 25 Mcg Tablet) 25 mcg PO DAILY [facility] Last Admin: 04/03/24 09:35 Dose: 25 mcg Vortioxetine (Vortioxetine Hydrobromide 10 Mg Tablet) 10 mg PO DAILY [facility] Last Admin: 04/03/24 09:35 Dose: 10 mg Allergies Allergies Allergy/AdvReac Type Severity Reaction Status Date / Time omeprazole Allergy Unknown Verified 10/30/23 00:09 Assessment & Plan Assessment & Plan (1) Schizophrenia: Status: Acute Code(s): F20.9 - Schizophrenia, unspecified (2) Failure to thrive in adult: Status: Acute Code(s): R62.7 - Adult failure to thrive Plan The patient is a 63-year-old male with a past history of schizophrenia who had been in and out of several facilities in the last year with severe hypoactive behavior, catatonic like symptoms and chronic noncompliance who needed to go for [facility] 7 and 8 for ECT. Even though that he had been treated with antipsychotics he remains still internally preoccupied. Plan 01/22/2024: No changes to current plan. Will add MiraLax 01/22: no changes 01/23 continue tx 01/24 continue tx. 01/25 continue tx 01/27 continue tx. 01/28: Continue current regimen and plans 01/29: Continue current regimen and plans. 01/30 continue tx. awaiting guardianship. 01/31 continue tx. 02/01 continue tx. 02/02 continue tx. 02/03 continue tx. 02/06 continue tx. 02/08: stable presentation. continue current mgmt. 02/09: no change 02/10: no change 02/11 continue same treatment 02/12 continue same treatment 02/13 continue tx. 02/14 continue tx. 02/15 continue tx 02/17 continue same treatment 02/18: appears slightly more wakeful and energetic than last time this mortgage underwriter met with pt. continue current mgmt. 02/19: as per yesterday. 02/20 continue tx. 02/21 continue tx. 02/22 continue tx. 02/24 continue tx. 02/25 no change ? worsening- follow vs get labs if continues to refuse food/hydration 02/27 continue tx. 02/28 continue tx. 03/02: slowed, appears tired/fatigued. poor PO intake. continue current mgmt. 03/03 continue tx. 03/04: continue current management and treatment plan. 03/05: Continue current management and treatment plan. 03/06: Continue current management and treatment plan. 03/07 continue tx. 03/10 cmp elevation in BUN, cr at baseline. BP low even with midodrine, may benefit from IV fluids if refuses increase fluid intake. 03/11 keep same treatment 03/12 keep same treatment 03/13 continue tx. 03/14 continue tx. 03/15 continue tx. 03/16 add am dose of risperidone 0.5mg po daily. 03/17 continue tx. 03/18 continue tx. 03/19 increase daily risperidone to 1mg po daily. continue risperidone 2mg po qhs. 03/20 continue tx. 03/24 continue same treatment 03/25: Continue current regimen and plans 03/26: Continue current regimen and plans 03/27 continue tx. switch provigil to adderall. increase trintellix. 03/28 continue tx. 03/29 continue td 03/30 increase adderall to 10mg po daily 04/01/2024 Continue Adderall mirtazapine Risperdal do not appear to be effective we would consider trial of unilateral ECT consider more stimulating antipsychotic 04/02/2024 See above continue recommendations encourage out of bed 04/03 continue tx. 04/04 continue tx. Reason for continued inpatient stay Substantial Risk for: inability to function Time Spent With Patient Time: Total time managing care of this patient today ____ minutes.
[2024-04-04] MEDS: Mirtazapine 7.5 MG TABLET PO (19:58)
[2024-04-04] MEDS: Sennosides 8.6 MG TABLET PO (19:58)
[2024-04-04] MEDS: risperiDONE 2 MG TABLET PO (19:58)
[2024-04-04 19:59] VITALS: BP 83/59; PULSE 97; RESP 17; TEMP 35.6; O2SAT 98
[2024-04-05 05:46] VITALS: BP 76/51; PULSE 73; RESP 15; TEMP 36; O2SAT 94
[2024-04-05 05:47] VITALS: BP 76/51
[2024-04-05] MEDS: Midodrine HCl 10 MG TABLET PO ×3 (05:47→17:20)
[2024-04-05 08:00] VITALS: BP 105/68; PULSE 86; RESP 18; O2SAT 95
[2024-04-05] MEDS: Cholecalciferol (Vitamin D3) 25 MCG TABLET PO (08:00)
[2024-04-05] MEDS: Memantine HCl 5 MG TABLET PO ×2 (08:00→19:46)
[2024-04-05] MEDS: Vortioxetine Hydrobromide 10 MG TABLET PO (08:00)
[2024-04-05] MEDS: Cyanocobalamin (Vitamin B-12) 1,000 MCG TABLET 1000 MCG PO (08:00)
[2024-04-05] MEDS: Famotidine 20 MG TABLET PO (08:00)
[2024-04-05] MEDS: risperiDONE 1 MG TABLET PO (08:00)
[2024-04-05] MEDS: Dextroamphetamine/Amphetamine XR 5 MG CAP.ER.24H 10 MG PO (08:00)
--- NOTE | 2024-04-05 10:04 | HO.PSYCHPN ---
Subjective Subjective Date of Service: 04/05/24 Reason For Visit: Schizoaffective disorder, unspecified type Subjective Notes: Section 8 Interim History: Pt sleeping through the night. He is mostly in his bed, minimally interacting with peers or staff. taking medications. He has been visible for meals. No significant change. Review of Systems Review of Systems Constipation Yes all other systems are reviewed and are negative and Unobtainable due to mental status Mental Status Exam Mental Status Exam Patient Appearance: Appropriate Patient Orientation: Person and Situation Level of Consciousness: Awake Patient Behavior: Guarded and Passive Mood Description: Withdrawn Affect Description: Constricted Patient Cognition Impaired: Yes Ability to Follow Directions: Good Speech Pattern: Clear Diagnostics Vital Signs (24Hr): Vital Signs - 24 hr 04/04/24 19:59 04/05/24 05:46 04/05/24 05:47 Temperature 96.1 F L 96.8 F Pulse Rate 97 73 Respiratory Rate 17 15 Blood Pressure 83/59 L 76/51 L 76/51 L Pulse Oximetry 98 94 Oxygen Delivery Method Room Air Room Air 04/05/24 08:00 Temperature Pulse Rate 86 Respiratory Rate 18 Blood Pressure 105/68 Pulse Oximetry 95 Oxygen Delivery Method Room Air BMI result Body Mass Index 18.6 Labs 03/09/24 10:51 03/09/24 10:51 Imaging Radiology Impressions: ITS Impressions Chest X-Ray 11/14/23 15:16 IMPRESSION: No evidence of acute disease. No pulmonary mass, pneumonia or pleural effusion. Chest CT 12/21/23 14:32 IMPRESSION: 1. No focal infiltrate is seen. 2. A 4 mm noncalcified subpleural nodule is seen within the posterior segment of the right upper lobe. According to the UPDATED 2017 Fleischner Society recommendations, the advised follow-up imaging for solid nodules < 6 mm is: LOW RISK PATIENT: No routine follow-up. HIGH RISK PATIENT: Optional CT at 12 months. 3. There is no thoracic lymphadenopathy or pleural effusion. 4. There is a marked kyphoscoliosis. No acute or aggressive osseous lesion is seen. 5. There is mild cholelithiasis. Fleischner guidelines were followed. KUB X-Ray 01/17/24 10:57 IMPRESSION: Multiple prominent, distended air-filled loops of small and large bowel. Brqxqhty-[id number]-arnhe amount of stool in the colon. Correlation with clinical exam recommended to determine further management including possible additional imaging with CT scan of the abdomen and pelvis if abdominal pathology is suspected. This study was presented today January 19, 2024 for interpretation. Stat results provided at this time as requested by referring provider. Medications Medications Current Medications Amphetamine/Dextroamphetamine (Dextroamphetamine/Amphetamine Xr 5 Mg Cap.Er.24h) 10 mg PO DAILY [facility] Last Admin: 04/05/24 08:00 Dose: 10 mg Cyanocobalamin (Cyanocobalamin (Vitamin B-12) 1,000 Mcg Tablet) 1,000 mcg PO DAILY [facility] Last Admin: 04/05/24 08:00 Dose: 1,000 mcg Famotidine (Famotidine 20 Mg Tablet) 20 mg PO DAILY [facility] Last Admin: 04/05/24 08:00 Dose: 20 mg Loperamide HCl (Loperamide Hcl 2 Mg Capsule) 2 mg PO Q4H PRN PRN Reason: loose stools Last Admin: 01/13/24 15:22 Dose: 2 mg Magnesium Hydroxide (Milk Of Magnesia 30 Ml Oral.Susp) 30 ml PO BID PRN PRN Reason: Constipation Last Admin: 03/25/24 09:00 Dose: 30 ml Memantine (Memantine Hcl 5 Mg Tablet) 5 mg PO BID [facility] Last Admin: 04/05/24 08:00 Dose: 5 mg Midodrine (Midodrine Hcl 10 Mg Tablet) 10 mg PO TID@0600,1200,1800 [facility] Last Admin: 04/05/24 05:47 Dose: 10 mg Mirtazapine (Mirtazapine 7.5 Mg Tablet) 7.5 mg PO BEDTIME [facility] Last Admin: 04/04/24 19:58 Dose: 7.5 mg Polyethylene Glycol (Polyethylene Glycol 3350 17 Gm Powd.Pack) 17 gm PO DAILY PRN PRN Reason: contipation Last Admin: 03/14/24 08:50 Dose: 17 gm Risperidone (Risperidone 2 Mg Tablet) 2 mg PO BEDTIME [facility] Last Admin: 04/04/24 19:58 Dose: 2 mg Risperidone (Risperidone 1 Mg Tablet) 1 mg PO DAILY [facility] Last Admin: 04/05/24 08:00 Dose: 1 mg Senna (Sennosides 8.6 Mg Tablet) 8.6 mg PO BEDTIME [facility] Last Admin: 04/04/24 19:58 Dose: 8.6 mg Vitamin D (Cholecalciferol (Vitamin D3) 25 Mcg Tablet) 25 mcg PO DAILY [facility] Last Admin: 04/05/24 08:00 Dose: 25 mcg Vortioxetine (Vortioxetine Hydrobromide 10 Mg Tablet) 10 mg PO DAILY [facility] Last Admin: 04/05/24 08:00 Dose: 10 mg Allergies Allergies Allergy/AdvReac Type Severity Reaction Status Date / Time omeprazole Allergy Unknown Verified 10/30/23 00:09 Assessment & Plan Assessment & Plan (1) Schizophrenia: Status: Acute Code(s): F20.9 - Schizophrenia, unspecified (2) Failure to thrive in adult: Status: Acute Code(s): R62.7 - Adult failure to thrive Plan The patient is a 63-year-old male with a past history of schizophrenia who had been in and out of several facilities in the last year with severe hypoactive behavior, catatonic like symptoms and chronic noncompliance who needed to go for [facility] 7 and 8 for ECT. Even though that he had been treated with antipsychotics he remains still internally preoccupied. Plan 01/22/2024: No changes to current plan. Will add MiraLax 01/22: no changes 01/23 continue tx 01/24 continue tx. 01/25 continue tx 01/27 continue tx. 01/28: Continue current regimen and plans 01/29: Continue current regimen and plans. 01/30 continue tx. awaiting guardianship. 01/31 continue tx. 02/01 continue tx. 02/02 continue tx. 02/03 continue tx. 02/06 continue tx. 02/08: stable presentation. continue current mgmt. 02/09: no change 02/10: no change 02/11 continue same treatment 02/12 continue same treatment 02/13 continue tx. 02/14 continue tx. 02/15 continue tx 02/17 continue same treatment 02/18: appears slightly more wakeful and energetic than last time this technical proposal writer met with pt. continue current mgmt. 02/19: as per yesterday. 02/20 continue tx. 02/21 continue tx. 02/22 continue tx. 02/24 continue tx. 02/25 no change ? worsening- follow vs get labs if continues to refuse food/hydration 02/27 continue tx. 02/28 continue tx. 03/02: slowed, appears tired/fatigued. poor PO intake. continue current mgmt. 03/03 continue tx. 03/04: continue current management and treatment plan. 03/05: Continue current management and treatment plan. 03/06: Continue current management and treatment plan. 03/07 continue tx. 03/10 cmp elevation in BUN, cr at baseline. BP low even with midodrine, may benefit from IV fluids if refuses increase fluid intake. 03/11 keep same treatment 03/12 keep same treatment 03/13 continue tx. 03/14 continue tx. 03/15 continue tx. 03/16 add am dose of risperidone 0.5mg po daily. 03/17 continue tx. 03/18 continue tx. 03/19 increase daily risperidone to 1mg po daily. continue risperidone 2mg po qhs. 03/20 continue tx. 03/24 continue same treatment 03/25: Continue current regimen and plans 03/26: Continue current regimen and plans 03/27 continue tx. switch provigil to adderall. increase trintellix. 03/28 continue tx. 03/29 continue td 03/30 increase adderall to 10mg po daily 04/01/2024 Continue Adderall mirtazapine Risperdal do not appear to be effective we would consider trial of unilateral ECT consider more stimulating antipsychotic 04/02/2024 See above continue recommendations encourage out of bed 04/03 continue tx. 04/04 continue tx. 04/05 continue tx. Reason for continued inpatient stay Substantial Risk for: inability to function Time Spent With Patient Time: Total time managing care of this patient today ____ minutes.
[2024-04-05 12:27] VITALS: BP 84/52
--- NOTE | 2024-04-05 15:17 | MHC.CLN ---
F/U DIET=REGULAR, SAFETY TRAY. ENSURE TID TO INCREASE KCALS/NUTRITION (1050 KCALS, 60 G PROTEIN). INTAKE VARIABLE, WITH MOST RECENT MEALS AVERAGING >50%. BMI=18.6. NO RECENT WEIGHT CHANGE. NOT AT HIGH NUTRITIONAL RISK. RD TO FOLLOW WEEKLY POTENTIAL RISK (NUTRITION LEVEL II).
[2024-04-05 17:20] VITALS: BP 86/57
[2024-04-05] MEDS: risperiDONE 2 MG TABLET PO (19:46)
[2024-04-05] MEDS: Sennosides 8.6 MG TABLET PO (19:46)
[2024-04-05] MEDS: Mirtazapine 7.5 MG TABLET PO (19:46)
[2024-04-05 20:00] VITALS: BP 75/47; PULSE 78; RESP 16; TEMP 36.3; O2SAT 93
[2024-04-06 05:08] VITALS: BP 103/71
[2024-04-06] MEDS: Midodrine HCl 10 MG TABLET PO ×3 (05:08→17:51)
[2024-04-06 09:03] VITALS: BP 101/66; PULSE 75; RESP 17; TEMP 36.2; O2SAT 95
[2024-04-06] MEDS: Cyanocobalamin (Vitamin B-12) 1,000 MCG TABLET 1000 MCG PO (09:04)
[2024-04-06] MEDS: risperiDONE 1 MG TABLET PO (09:04)
[2024-04-06] MEDS: Memantine HCl 5 MG TABLET PO ×2 (09:04→19:55)
[2024-04-06] MEDS: Dextroamphetamine/Amphetamine XR 5 MG CAP.ER.24H 10 MG PO (09:04)
[2024-04-06] MEDS: Cholecalciferol (Vitamin D3) 25 MCG TABLET PO (09:04)
[2024-04-06] MEDS: Famotidine 20 MG TABLET PO (09:05)
[2024-04-06] MEDS: Vortioxetine Hydrobromide 10 MG TABLET PO (09:05)
--- NOTE | 2024-04-06 11:00 | HO.PSYCHPN ---
Subjective Subjective Date of Service: 04/06/24 Reason For Visit: Schizoaffective disorder, unspecified type Subjective Notes: Conditional Voluntary Interim History: Pt sleeping through the night. He is mostly in his bed, minimally interacting with peers or staff. taking medications. He has been visible for meals. No significant change. VS stable. Review of Systems Review of Systems Constipation Yes all other systems are reviewed and are negative and Unobtainable due to mental status Mental Status Exam Mental Status Exam Patient Appearance: Appropriate Patient Orientation: Person and Situation Level of Consciousness: Awake Patient Behavior: Guarded and Passive Mood Description: Withdrawn Affect Description: Constricted Patient Cognition Impaired: Yes Ability to Follow Directions: Good Speech Pattern: Clear Diagnostics Vital Signs (24Hr): Vital Signs - 24 hr 04/05/24 12:27 04/05/24 17:20 04/05/24 20:00 Temperature 97.4 F Pulse Rate 78 Respiratory Rate 16 Blood Pressure 84/52 L 86/57 L 75/47 L Pulse Oximetry 93 Oxygen Delivery Method Room Air 04/06/24 05:08 04/06/24 09:03 Temperature 97.1 F Pulse Rate 75 Respiratory Rate 17 Blood Pressure 103/71 101/66 Pulse Oximetry 95 Oxygen Delivery Method Room Air BMI result Body Mass Index 18.6 Labs 03/09/24 10:51 03/09/24 10:51 Imaging Radiology Impressions: ITS Impressions Chest X-Ray 11/14/23 15:16 IMPRESSION: No evidence of acute disease. No pulmonary mass, pneumonia or pleural effusion. Chest CT 12/21/23 14:32 IMPRESSION: 1. No focal infiltrate is seen. 2. A 4 mm noncalcified subpleural nodule is seen within the posterior segment of the right upper lobe. According to the UPDATED 2017 Fleischner Society recommendations, the advised follow-up imaging for solid nodules < 6 mm is: LOW RISK PATIENT: No routine follow-up. HIGH RISK PATIENT: Optional CT at 12 months. 3. There is no thoracic lymphadenopathy or pleural effusion. 4. There is a marked kyphoscoliosis. No acute or aggressive osseous lesion is seen. 5. There is mild cholelithiasis. Fleischner guidelines were followed. KUB X-Ray 01/17/24 10:57 IMPRESSION: Multiple prominent, distended air-filled loops of small and large bowel. [id number] amount of stool in the colon. Correlation with clinical exam recommended to determine further management including possible additional imaging with CT scan of the abdomen and pelvis if abdominal pathology is suspected. This study was presented today January 19, 2024 for interpretation. Stat results provided at this time as requested by referring provider. Medications Medications Current Medications Amphetamine/Dextroamphetamine (Dextroamphetamine/Amphetamine Xr 5 Mg Cap.Er.24h) 10 mg PO DAILY [facility] Last Admin: 04/06/24 09:04 Dose: 10 mg Cyanocobalamin (Cyanocobalamin (Vitamin B-12) 1,000 Mcg Tablet) 1,000 mcg PO DAILY [facility] Last Admin: 04/06/24 09:04 Dose: 1,000 mcg Famotidine (Famotidine 20 Mg Tablet) 20 mg PO DAILY [facility] Last Admin: 04/06/24 09:05 Dose: 20 mg Loperamide HCl (Loperamide Hcl 2 Mg Capsule) 2 mg PO Q4H PRN PRN Reason: loose stools Last Admin: 01/13/24 15:22 Dose: 2 mg Magnesium Hydroxide (Milk Of Magnesia 30 Ml Oral.Susp) 30 ml PO BID PRN PRN Reason: Constipation Last Admin: 03/25/24 09:00 Dose: 30 ml Memantine (Memantine Hcl 5 Mg Tablet) 5 mg PO BID [facility] Last Admin: 04/06/24 09:04 Dose: 5 mg Midodrine (Midodrine Hcl 10 Mg Tablet) 10 mg PO TID@0600,1200,1800 [facility] Last Admin: 04/06/24 05:08 Dose: 10 mg Mirtazapine (Mirtazapine 7.5 Mg Tablet) 7.5 mg PO BEDTIME [facility] Last Admin: 04/05/24 19:46 Dose: 7.5 mg Polyethylene Glycol (Polyethylene Glycol 3350 17 Gm Powd.Pack) 17 gm PO DAILY PRN PRN Reason: contipation Last Admin: 03/14/24 08:50 Dose: 17 gm Risperidone (Risperidone 2 Mg Tablet) 2 mg PO BEDTIME [facility] Last Admin: 04/05/24 19:46 Dose: 2 mg Risperidone (Risperidone 1 Mg Tablet) 1 mg PO DAILY [facility] Last Admin: 04/06/24 09:04 Dose: 1 mg Senna (Sennosides 8.6 Mg Tablet) 8.6 mg PO BEDTIME [facility] Last Admin: 04/05/24 19:46 Dose: 8.6 mg Vitamin D (Cholecalciferol (Vitamin D3) 25 Mcg Tablet) 25 mcg PO DAILY [facility] Last Admin: 04/06/24 09:04 Dose: 25 mcg Vortioxetine (Vortioxetine Hydrobromide 10 Mg Tablet) 10 mg PO DAILY [facility] Last Admin: 04/06/24 09:05 Dose: 10 mg Allergies Allergies Allergy/AdvReac Type Severity Reaction Status Date / Time omeprazole Allergy Unknown Verified 10/30/23 00:09 Assessment & Plan Assessment & Plan (1) Schizophrenia: Status: Acute Code(s): F20.9 - Schizophrenia, unspecified (2) Failure to thrive in adult: Status: Acute Code(s): R62.7 - Adult failure to thrive Plan The patient is a 63-year-old male with a past history of schizophrenia who had been in and out of several facilities in the last year with severe hypoactive behavior, catatonic like symptoms and chronic noncompliance who needed to go for [facility] 8 for ECT. Even though that he had been treated with antipsychotics he remains still internally preoccupied. Plan 01/22/2024: No changes to current plan. Will add MiraLax 01/22: no changes 01/23 continue tx 01/24 continue tx. 01/25 continue tx 01/27 continue tx. 01/28: Continue current regimen and plans 01/29: Continue current regimen and plans. 01/30 continue tx. awaiting guardianship. 01/31 continue tx. 02/01 continue tx. 02/02 continue tx. 02/03 continue tx. 02/06 continue tx. 02/08: stable presentation. continue current mgmt. 02/09: no change 02/10: no change 02/11 continue same treatment 02/12 continue same treatment 02/13 continue tx. 02/14 continue tx. 02/15 continue tx 02/17 continue same treatment 02/18: appears slightly more wakeful and energetic than last time this specifications writer met with pt. continue current mgmt. 02/19: as per yesterday. 02/20 continue tx. 02/21 continue tx. 02/22 continue tx. 02/24 continue tx. 02/25 no change ? worsening- follow vs get labs if continues to refuse food/hydration 02/27 continue tx. 02/28 continue tx. 03/02: slowed, appears tired/fatigued. poor PO intake. continue current mgmt. 03/03 continue tx. 03/04: continue current management and treatment plan. 03/05: Continue current management and treatment plan. 03/06: Continue current management and treatment plan. 03/07 continue tx. 03/10 cmp elevation in BUN, cr at baseline. BP low even with midodrine, may benefit from IV fluids if refuses increase fluid intake. 03/11 keep same treatment 03/12 keep same treatment 03/13 continue tx. 03/14 continue tx. 03/15 continue tx. 03/16 add am dose of risperidone 0.5mg po daily. 03/17 continue tx. 03/18 continue tx. 03/19 increase daily risperidone to 1mg po daily. continue risperidone 2mg po qhs. 03/20 continue tx. 03/24 continue same treatment 03/25: Continue current regimen and plans 03/26: Continue current regimen and plans 03/27 continue tx. switch provigil to adderall. increase trintellix. 03/28 continue tx. 03/29 continue td 03/30 increase adderall to 10mg po daily 04/01/2024 Continue Adderall mirtazapine Risperdal do not appear to be effective we would consider trial of unilateral ECT consider more stimulating antipsychotic 04/02/2024 See above continue recommendations encourage out of bed 04/03 continue tx. 04/04 continue tx. 04/05 continue tx. 04/06 continue tx. Reason for continued inpatient stay Substantial Risk for: inability to function Time Spent With Patient Time: Total time managing care of this patient today ____ minutes.
[2024-04-06 12:05] VITALS: BP 80/53
[2024-04-06 17:51] VITALS: BP 115/72
[2024-04-06] MEDS: Mirtazapine 7.5 MG TABLET PO (19:55)
[2024-04-06] MEDS: risperiDONE 2 MG TABLET PO (19:55)
[2024-04-06] MEDS: Sennosides 8.6 MG TABLET PO (19:55)
[2024-04-06 20:00] VITALS: BP 91/48; PULSE 63; RESP 16; TEMP 36.9; O2SAT 95
[2024-04-07 06:13] VITALS: BP 105/69; PULSE 92
[2024-04-07 06:14] VITALS: BP 105/69
[2024-04-07] MEDS: Midodrine HCl 10 MG TABLET PO ×3 (06:14→17:20)
[2024-04-07 08:44] VITALS: BP 119/75; PULSE 80; RESP 17; TEMP 36.6; O2SAT 97
[2024-04-07] MEDS: Cyanocobalamin (Vitamin B-12) 1,000 MCG TABLET 1000 MCG PO (08:45)
[2024-04-07] MEDS: Dextroamphetamine/Amphetamine XR 5 MG CAP.ER.24H 10 MG PO (08:45)
[2024-04-07] MEDS: Famotidine 20 MG TABLET PO (08:45)
[2024-04-07] MEDS: Cholecalciferol (Vitamin D3) 25 MCG TABLET PO (08:46)
[2024-04-07] MEDS: Vortioxetine Hydrobromide 10 MG TABLET PO (08:46)
[2024-04-07] MEDS: Memantine HCl 5 MG TABLET PO ×2 (08:46→20:25)
[2024-04-07] MEDS: risperiDONE 1 MG TABLET PO (08:46)
[2024-04-07 12:12] VITALS: BP 101/61
--- NOTE | 2024-04-07 14:57 | P.PNPSI_ITS ---
Subjective Subjective Date of Service: 04/07/24 Reason For Visit: Schizoaffective disorder, unspecified type Subjective Notes: Section 8 Interim History: Pt slept about 6hrs. He was up in the morning for breakfast. He reports he is a little depressed. He continues to report that he could go to the mobile home [place]. Pt informed there is no mobile home in the parking lot waiting for him. He declined visit from sister, still thinks she put him here. He is not able to tell the month or the year. He then walks towards his room and ends conversation with senior underwriter. He denies SI/HI. Still mostly in bed, minimally interacting with peers or staff. He is taking medications as prescribed. Review of Systems Review of Systems Constipation Yes all other systems are reviewed and are negative and Unobtainable due to mental status Mental Status Exam Mental Status Exam Patient Appearance: Appropriate Patient Orientation: Person and Situation Level of Consciousness: Awake Patient Behavior: Guarded and Passive Mood Description: Withdrawn Affect Description: Constricted Patient Cognition Impaired: Yes Ability to Follow Directions: Good Speech Pattern: Clear Diagnostics Vital Signs (24Hr): Vital Signs - 24 hr 04/06/24 17:51 04/06/24 20:00 04/07/24 06:13 Temperature 98.4 F Pulse Rate 63 92 Respiratory Rate 16 Blood Pressure 115/72 91/48 L 105/69 Pulse Oximetry 95 Oxygen Delivery Method Room Air 04/07/24 06:14 04/07/24 08:44 04/07/24 12:12 Temperature 97.9 F Pulse Rate 80 Respiratory Rate 17 Blood Pressure 105/69 119/75 101/61 Pulse Oximetry 97 Oxygen Delivery Method Room Air BMI result Body Mass Index 18.6 Labs 03/09/24 10:51 03/09/24 10:51 Imaging Radiology Impressions: ITS Impressions Chest X-Ray 11/14/23 15:16 IMPRESSION: No evidence of acute disease. No pulmonary mass, pneumonia or pleural effusion. Chest CT 12/21/23 14:32 IMPRESSION: 1. No focal infiltrate is seen. 2. A 4 mm noncalcified subpleural nodule is seen within the posterior segment of the right upper lobe. According to the UPDATED 2017 Fleischner Society recommendations, the advised follow-up imaging for solid nodules < 6 mm is: LOW RISK PATIENT: No routine follow-up. HIGH RISK PATIENT: Optional CT at 12 months. 3. There is no thoracic lymphadenopathy or pleural effusion. 4. There is a marked kyphoscoliosis. No acute or aggressive osseous lesion is seen. 5. There is mild cholelithiasis. Fleischner guidelines were followed. KUB X-Ray 01/17/24 10:57 IMPRESSION: Multiple prominent, distended air-filled loops of small and large bowel. [id number] amount of stool in the colon. Correlation with clinical exam recommended to determine further management including possible additional imaging with CT scan of the abdomen and pelvis if abdominal pathology is suspected. This study was presented today January 19, 2024 for interpretation. Stat results provided at this time as requested by referring provider. Medications Medications Current Medications Amphetamine/Dextroamphetamine (Dextroamphetamine/Amphetamine Xr 5 Mg Cap.Er.24h) 10 mg PO DAILY [facility] Last Admin: 04/07/24 08:45 Dose: 10 mg Cyanocobalamin (Cyanocobalamin (Vitamin B-12) 1,000 Mcg Tablet) 1,000 mcg PO DAILY [facility] Last Admin: 04/07/24 08:45 Dose: 1,000 mcg Famotidine (Famotidine 20 Mg Tablet) 20 mg PO DAILY [facility] Last Admin: 04/07/24 08:45 Dose: 20 mg Loperamide HCl (Loperamide Hcl 2 Mg Capsule) 2 mg PO Q4H PRN PRN Reason: loose stools Last Admin: 01/13/24 15:22 Dose: 2 mg Magnesium Hydroxide (Milk Of Magnesia 30 Ml Oral.Susp) 30 ml PO BID PRN PRN Reason: Constipation Last Admin: 03/25/24 09:00 Dose: 30 ml Memantine (Memantine Hcl 5 Mg Tablet) 5 mg PO BID [facility] Last Admin: 04/07/24 08:46 Dose: 5 mg Midodrine (Midodrine Hcl 10 Mg Tablet) 10 mg PO TID@0600,1200,1800 [facility] Last Admin: 04/07/24 12:14 Dose: 10 mg Mirtazapine (Mirtazapine 7.5 Mg Tablet) 7.5 mg PO BEDTIME [facility] Last Admin: 04/06/24 19:55 Dose: 7.5 mg Polyethylene Glycol (Polyethylene Glycol 3350 17 Gm Powd.Pack) 17 gm PO DAILY PRN PRN Reason: contipation Last Admin: 03/14/24 08:50 Dose: 17 gm Risperidone (Risperidone 2 Mg Tablet) 2 mg PO BEDTIME [facility] Last Admin: 04/06/24 19:55 Dose: 2 mg Risperidone (Risperidone 1 Mg Tablet) 1 mg PO DAILY [facility] Last Admin: 04/07/24 08:46 Dose: 1 mg Senna (Sennosides 8.6 Mg Tablet) 8.6 mg PO BEDTIME [facility] Last Admin: 04/06/24 19:55 Dose: 8.6 mg Vitamin D (Cholecalciferol (Vitamin D3) 25 Mcg Tablet) 25 mcg PO DAILY [facility] Last Admin: 04/07/24 08:46 Dose: 25 mcg Vortioxetine (Vortioxetine Hydrobromide 10 Mg Tablet) 10 mg PO DAILY [facility] Last Admin: 04/07/24 08:46 Dose: 10 mg Allergies Allergies Allergy/AdvReac Type Severity Reaction Status Date / Time omeprazole Allergy Unknown Verified 10/30/23 00:09 Assessment & Plan Assessment & Plan (1) Schizophrenia: Status: Acute Code(s): F20.9 - Schizophrenia, unspecified (2) Failure to thrive in adult: Status: Acute Code(s): R62.7 - Adult failure to thrive Plan The patient is a 63-year-old male with a past history of schizophrenia who had been in and out of several facilities in the last year with severe hypoactive behavior, catatonic like symptoms and chronic noncompliance who needed to go for [facility] 8 for ECT. Even though that he had been treated with antipsychotics he remains still internally preoccupied. Plan 01/22/2024: No changes to current plan. Will add MiraLax 01/22: no changes 01/23 continue tx 01/24 continue tx. 01/25 continue tx 01/27 continue tx. 01/28: Continue current regimen and plans 01/29: Continue current regimen and plans. 01/30 continue tx. awaiting guardianship. 01/31 continue tx. 02/01 continue tx. 02/02 continue tx. 02/03 continue tx. 02/06 continue tx. 02/08: stable presentation. continue current mgmt. 02/09: no change 02/10: no change 02/11 continue same treatment 02/12 continue same treatment 02/13 continue tx. 02/14 continue tx. 02/15 continue tx 02/17 continue same treatment 02/18: appears slightly more wakeful and energetic than last time this senior underwriter met with pt. continue current mgmt. 02/19: as per yesterday. 02/20 continue tx. 02/21 continue tx. 02/22 continue tx. 02/24 continue tx. 02/25 no change ? worsening- follow vs get labs if continues to refuse food/hydration 02/27 continue tx. 02/28 continue tx. 03/02: slowed, appears tired/fatigued. poor PO intake. continue current mgmt. 03/03 continue tx. 03/04: continue current management and treatment plan. 03/05: Continue current management and treatment plan. 03/06: Continue current management and treatment plan. 03/07 continue tx. 03/10 cmp elevation in BUN, cr at baseline. BP low even with midodrine, may benefit from IV fluids if refuses increase fluid intake. 03/11 keep same treatment 03/12 keep same treatment 03/13 continue tx. 03/14 continue tx. 03/15 continue tx. 03/16 add am dose of risperidone 0.5mg po daily. 03/17 continue tx. 03/18 continue tx. 03/19 increase daily risperidone to 1mg po daily. continue risperidone 2mg po qhs. 03/20 continue tx. 03/24 continue same treatment 03/25: Continue current regimen and plans 03/26: Continue current regimen and plans 03/27 continue tx. switch provigil to adderall. increase trintellix. 03/28 continue tx. 03/29 continue td 03/30 increase adderall to 10mg po daily 04/01/2024 Continue Adderall mirtazapine Risperdal do not appear to be effective we would consider trial of unilateral ECT consider more stimulating antipsychotic 04/02/2024 See above continue recommendations encourage out of bed 04/03 continue tx. 04/04 continue tx. 04/05 continue tx. 04/06 continue tx. 04/07 continue tx. Reason for continued inpatient stay Substantial Risk for: inability to function Time Spent With Patient Time: Total time managing care of this patient today ____ minutes.
[2024-04-07 17:20] VITALS: BP 92/68
[2024-04-07 20:00] VITALS: BP 97/57; PULSE 72; RESP 16; TEMP 36.4; O2SAT 95
[2024-04-07] MEDS: Sennosides 8.6 MG TABLET PO (20:25)
[2024-04-07] MEDS: risperiDONE 2 MG TABLET PO (20:25)
[2024-04-07] MEDS: Mirtazapine 7.5 MG TABLET PO (20:25)
[2024-04-08 05:58] VITALS: BP 103/80
[2024-04-08] MEDS: Midodrine HCl 10 MG TABLET PO ×3 (05:58→17:33)
[2024-04-08 08:00] VITALS: BP 119/72; PULSE 81; RESP 16; TEMP 36.4; O2SAT 96
[2024-04-08] MEDS: Cholecalciferol (Vitamin D3) 25 MCG TABLET PO (08:39)
[2024-04-08] MEDS: Cyanocobalamin (Vitamin B-12) 1,000 MCG TABLET 1000 MCG PO (08:39)
[2024-04-08] MEDS: Famotidine 20 MG TABLET PO (08:39)
[2024-04-08] MEDS: Memantine HCl 5 MG TABLET PO ×2 (08:39→20:37)
[2024-04-08] MEDS: Dextroamphetamine/Amphetamine XR 5 MG CAP.ER.24H 10 MG PO (08:39)
[2024-04-08] MEDS: risperiDONE 1 MG TABLET PO (08:39)
[2024-04-08] MEDS: Vortioxetine Hydrobromide 10 MG TABLET PO (08:39)
[2024-04-08 12:11] VITALS: BP 88/54
[2024-04-08 12:12] VITALS: BP 88/54
--- NOTE | 2024-04-08 14:10 | P.PNPSI_ITS ---
Subjective Subjective Date of Service: 04/08/24 Reason For Visit: Schizoaffective disorder, unspecified type Subjective Notes: Section 8 Interim History: 64 yo reports not feeling well emotionally - lying in bed , fair eye contact- is getting out of bed for meals- Medication Compliance: Yes Side effects from medications: No Attending Groups: No Review of Systems Acute medical concerns: No Medical Review of Systems: unchanged Mental Status Exam Mental Status Exam Patient Appearance: Fatigued and Disheveled Patient Orientation: Person, Place and Situation Level of Consciousness: Awake and Drowsy Patient Behavior: Dependent and Passive Mood Description: Withdrawn Affect Description: Blunted Speech Pattern: Impoverished Thought Process: Intact and Goal Oriented Thought Content: positive for Poverty of Content Judgement: Fair Diagnostics Vital Signs (24Hr): Vital Signs - 24 hr 04/07/24 17:20 04/07/24 20:00 04/08/24 05:58 Temperature 97.5 F Pulse Rate 72 Respiratory Rate 16 Blood Pressure 92/68 97/57 L 103/80 Pulse Oximetry 95 Oxygen Delivery Method Room Air 04/08/24 08:00 04/08/24 12:11 04/08/24 12:12 Temperature 97.6 F Pulse Rate 81 Respiratory Rate 16 Blood Pressure 119/72 88/54 L 88/54 L Pulse Oximetry 96 Oxygen Delivery Method Room Air BMI result Body Mass Index 18.6 Labs 03/09/24 10:51 03/09/24 10:51 Imaging Radiology Impressions: ITS Impressions Chest X-Ray 11/14/23 15:16 IMPRESSION: No evidence of acute disease. No pulmonary mass, pneumonia or pleural effusion. Chest CT 12/21/23 14:32 IMPRESSION: 1. No focal infiltrate is seen. 2. A 4 mm noncalcified subpleural nodule is seen within the posterior segment of the right upper lobe. According to the UPDATED 2017 Fleischner Society recommendations, the advised follow-up imaging for solid nodules < 6 mm is: LOW RISK PATIENT: No routine follow-up. HIGH RISK PATIENT: Optional CT at 12 months. 3. There is no thoracic lymphadenopathy or pleural effusion. 4. There is a marked kyphoscoliosis. No acute or aggressive osseous lesion is seen. 5. There is mild cholelithiasis. Fleischner guidelines were followed. KUB X-Ray 01/17/24 10:57 IMPRESSION: Multiple prominent, distended air-filled loops of small and large bowel. [id number] amount of stool in the colon. Correlation with clinical exam recommended to determine further management including possible additional imaging with CT scan of the abdomen and pelvis if abdominal pathology is suspected. This study was presented today January 19, 2024 for interpretation. Stat results provided at this time as requested by referring provider. Medications Medications Current Medications Amphetamine/Dextroamphetamine (Dextroamphetamine/Amphetamine Xr 5 Mg Cap.Er.24h) 10 mg PO DAILY [facility] Last Admin: 04/08/24 08:39 Dose: 10 mg Cyanocobalamin (Cyanocobalamin (Vitamin B-12) 1,000 Mcg Tablet) 1,000 mcg PO DAILY [facility] Last Admin: 04/08/24 08:39 Dose: 1,000 mcg Famotidine (Famotidine 20 Mg Tablet) 20 mg PO DAILY [facility] Last Admin: 04/08/24 08:39 Dose: 20 mg Loperamide HCl (Loperamide Hcl 2 Mg Capsule) 2 mg PO Q4H PRN PRN Reason: loose stools Last Admin: 01/13/24 15:22 Dose: 2 mg Magnesium Hydroxide (Milk Of Magnesia 30 Ml Oral.Susp) 30 ml PO BID PRN PRN Reason: Constipation Last Admin: 03/25/24 09:00 Dose: 30 ml Memantine (Memantine Hcl 5 Mg Tablet) 5 mg PO BID [facility] Last Admin: 04/08/24 08:39 Dose: 5 mg Midodrine (Midodrine Hcl 10 Mg Tablet) 10 mg PO TID@0600,1200,1800 [facility] Last Admin: 04/08/24 12:12 Dose: 10 mg Mirtazapine (Mirtazapine 7.5 Mg Tablet) 7.5 mg PO BEDTIME [facility] Last Admin: 04/07/24 20:25 Dose: 7.5 mg Polyethylene Glycol (Polyethylene Glycol 3350 17 Gm Powd.Pack) 17 gm PO DAILY PRN PRN Reason: contipation Last Admin: 03/14/24 08:50 Dose: 17 gm Risperidone (Risperidone 2 Mg Tablet) 2 mg PO BEDTIME [facility] Last Admin: 04/07/24 20:25 Dose: 2 mg Risperidone (Risperidone 1 Mg Tablet) 1 mg PO DAILY [facility] Last Admin: 04/08/24 08:39 Dose: 1 mg Senna (Sennosides 8.6 Mg Tablet) 8.6 mg PO BEDTIME [facility] Last Admin: 04/07/24 20:25 Dose: 8.6 mg Vitamin D (Cholecalciferol (Vitamin D3) 25 Mcg Tablet) 25 mcg PO DAILY [facility] Last Admin: 04/08/24 08:39 Dose: 25 mcg Vortioxetine (Vortioxetine Hydrobromide 10 Mg Tablet) 10 mg PO DAILY [facility] Last Admin: 04/08/24 08:39 Dose: 10 mg Allergies Allergies Allergy/AdvReac Type Severity Reaction Status Date / Time omeprazole Allergy Unknown Verified 10/30/23 00:09 Assessment & Plan Assessment & Plan (1) Schizophrenia: Status: Acute Code(s): F20.9 - Schizophrenia, unspecified (2) Failure to thrive in adult: Status: Acute Code(s): R62.7 - Adult failure to thrive Plan The patient is a 63-year-old male with a past history of schizophrenia who had been in and out of several facilities in the last year with severe hypoactive behavior, catatonic like symptoms and chronic noncompliance who needed to go for [facility] 8 for ECT. Even though that he had been treated with antipsychotics he remains still internally preoccupied. Plan 01/22/2024: No changes to current plan. Will add MiraLax 01/22: no changes 01/23 continue tx 01/24 continue tx. 01/25 continue tx 01/27 continue tx. 01/28: Continue current regimen and plans 01/29: Continue current regimen and plans. 01/30 continue tx. awaiting guardianship. 01/31 continue tx. 02/01 continue tx. 02/02 continue tx. 02/03 continue tx. 02/06 continue tx. 02/08: stable presentation. continue current mgmt. 02/09: no change 02/10: no change 02/11 continue same treatment 02/12 continue same treatment 02/13 continue tx. 02/14 continue tx. 02/15 continue tx 02/17 continue same treatment 02/18: appears slightly more wakeful and energetic than last time this sheet writer met with pt. continue current mgmt. 02/19: as per yesterday. 02/20 continue tx. 02/21 continue tx. 02/22 continue tx. 02/24 continue tx. 02/25 no change ? worsening- follow vs get labs if continues to refuse food/hydration 02/27 continue tx. 02/28 continue tx. 03/02: slowed, appears tired/fatigued. poor PO intake. continue current mgmt. 03/03 continue tx. 03/04: continue current management and treatment plan. 03/05: Continue current management and treatment plan. 03/06: Continue current management and treatment plan. 03/07 continue tx. 03/10 cmp elevation in BUN, cr at baseline. BP low even with midodrine, may benefit from IV fluids if refuses increase fluid intake. 03/11 keep same treatment 03/12 keep same treatment 03/13 continue tx. 03/14 continue tx. 03/15 continue tx. 03/16 add am dose of risperidone 0.5mg po daily. 03/17 continue tx. 03/18 continue tx. 03/19 increase daily risperidone to 1mg po daily. continue risperidone 2mg po qhs. 03/20 continue tx. 03/24 continue same treatment 03/25: Continue current regimen and plans 03/26: Continue current regimen and plans 03/27 continue tx. switch provigil to adderall. increase trintellix. 03/28 continue tx. 03/29 continue td 03/30 increase adderall to 10mg po daily 04/01/2024 Continue Adderall mirtazapine Risperdal do not appear to be effective we would consider trial of unilateral ECT consider more stimulating antipsychotic 04/02/2024 See above continue recommendations encourage out of bed 04/03 continue tx. 04/04 continue tx. 04/05 continue tx. 04/06 continue tx. 04/07 continue tx. 04/08 CTP Reason for continued inpatient stay Substantial Risk for: rapid decompensation Time Spent With Patient Time: Total time managing care of this patient today ____ minutes.
[2024-04-08 17:28] VITALS: BP 86/61
[2024-04-08 20:00] VITALS: BP 107/63; PULSE 82; RESP 16; TEMP 36.3; O2SAT 96
[2024-04-08] MEDS: Sennosides 8.6 MG TABLET PO (20:37)
[2024-04-08] MEDS: Mirtazapine 7.5 MG TABLET PO (20:37)
[2024-04-08] MEDS: risperiDONE 2 MG TABLET PO (20:37)
[2024-04-09 08:00] VITALS: BP 84/58; PULSE 65; RESP 16; TEMP 37.8; O2SAT 94
[2024-04-09 11:42] VITALS: BP 78/56
[2024-04-09] MEDS: Midodrine HCl 10 MG TABLET PO ×2 (11:42→18:07)
--- NOTE | 2024-04-09 14:14 | HO.PSYCHPN ---
Subjective Subjective Date of Service: 04/09/24 Reason For Visit: Schizoaffective disorder, unspecified type Subjective Notes: Section 8 Interim History: 64 yo continues withdrawn and depressed- not very reactive today- still taking in po food/liquid- limited verbal engagement Medication Compliance: Yes Side effects from medications: No Attending Groups: No Review of Systems Acute medical concerns: No Medical Review of Systems: changed Review of Systems: nausea, wrote for prn zofran Mental Status Exam Mental Status Exam Patient Appearance: Fatigued and Disheveled Patient Orientation: Person, Place and Situation Level of Consciousness: Awake and Drowsy Patient Behavior: Dependent and Passive Mood Description: Withdrawn Affect Description: Blunted Speech Pattern: Impoverished Thought Process: Intact and Goal Oriented Thought Content: positive for Poverty of Content Judgement: Fair Diagnostics Vital Signs (24Hr): Vital Signs - 24 hr 04/08/24 17:28 04/08/24 20:00 04/09/24 08:00 Temperature 97.3 F 100.0 F Pulse Rate 82 65 Respiratory Rate 16 16 Blood Pressure 86/61 L 107/63 84/58 L Pulse Oximetry 96 94 Oxygen Delivery Method Room Air Room Air 04/09/24 11:42 Temperature Pulse Rate Respiratory Rate Blood Pressure 78/56 L Pulse Oximetry Oxygen Delivery Method BMI result Body Mass Index 18.6 Labs 03/09/24 10:51 03/09/24 10:51 Imaging Radiology Impressions: ITS Impressions Chest X-Ray 11/14/23 15:16 IMPRESSION: No evidence of acute disease. No pulmonary mass, pneumonia or pleural effusion. Chest CT 12/21/23 14:32 IMPRESSION: 1. No focal infiltrate is seen. 2. A 4 mm noncalcified subpleural nodule is seen within the posterior segment of the right upper lobe. According to the UPDATED 2017 Fleischner Society recommendations, the advised follow-up imaging for solid nodules < 6 mm is: LOW RISK PATIENT: No routine follow-up. HIGH RISK PATIENT: Optional CT at 12 months. 3. There is no thoracic lymphadenopathy or pleural effusion. 4. There is a marked kyphoscoliosis. No acute or aggressive osseous lesion is seen. 5. There is mild cholelithiasis. Fleischner guidelines were followed. KUB X-Ray 01/17/24 10:57 IMPRESSION: Multiple prominent, distended air-filled loops of small and large bowel. [id number] amount of stool in the colon. Correlation with clinical exam recommended to determine further management including possible additional imaging with CT scan of the abdomen and pelvis if abdominal pathology is suspected. This study was presented today January 19, 2024 for interpretation. Stat results provided at this time as requested by referring provider. Medications Medications Current Medications Amphetamine/Dextroamphetamine (Dextroamphetamine/Amphetamine Xr 5 Mg Cap.Er.24h) 10 mg PO DAILY [facility] Last Admin: 04/09/24 08:43 Dose: Not Given Cyanocobalamin (Cyanocobalamin (Vitamin B-12) 1,000 Mcg Tablet) 1,000 mcg PO DAILY [facility] Last Admin: 04/09/24 08:43 Dose: Not Given Famotidine (Famotidine 20 Mg Tablet) 20 mg PO DAILY [facility] Last Admin: 04/09/24 08:43 Dose: Not Given Loperamide HCl (Loperamide Hcl 2 Mg Capsule) 2 mg PO Q4H PRN PRN Reason: loose stools Last Admin: 01/13/24 15:22 Dose: 2 mg Magnesium Hydroxide (Milk Of Magnesia 30 Ml Oral.Susp) 30 ml PO BID PRN PRN Reason: Constipation Last Admin: 03/25/24 09:00 Dose: 30 ml Memantine (Memantine Hcl 5 Mg Tablet) 5 mg PO BID [facility] Last Admin: 04/09/24 08:43 Dose: Not Given Midodrine (Midodrine Hcl 10 Mg Tablet) 10 mg PO TID@0600,1200,1800 [facility] Last Admin: 04/09/24 11:42 Dose: 10 mg Mirtazapine (Mirtazapine 7.5 Mg Tablet) 7.5 mg PO BEDTIME [facility] Last Admin: 04/08/24 20:37 Dose: 7.5 mg Ondansetron HCl (Ondansetron Odt 4 Mg Tab.Rapdis) 4 mg TRANSLINGU Q12H PRN PRN Reason: Nausea and Vomiting Polyethylene Glycol (Polyethylene Glycol 3350 17 Gm Powd.Pack) 17 gm PO DAILY PRN PRN Reason: contipation Last Admin: 03/14/24 08:50 Dose: 17 gm Risperidone (Risperidone 2 Mg Tablet) 2 mg PO BEDTIME [facility] Last Admin: 04/08/24 20:37 Dose: 2 mg Risperidone (Risperidone 1 Mg Tablet) 1 mg PO DAILY [facility] Last Admin: 04/09/24 08:43 Dose: Not Given Senna (Sennosides 8.6 Mg Tablet) 8.6 mg PO BEDTIME [facility] Last Admin: 04/08/24 20:37 Dose: 8.6 mg Vitamin D (Cholecalciferol (Vitamin D3) 25 Mcg Tablet) 25 mcg PO DAILY [facility] Last Admin: 04/09/24 08:42 Dose: Not Given Vortioxetine (Vortioxetine Hydrobromide 10 Mg Tablet) 10 mg PO DAILY [facility] Last Admin: 04/09/24 08:43 Dose: Not Given Allergies Allergies Allergy/AdvReac Type Severity Reaction Status Date / Time omeprazole Allergy Unknown Verified 10/30/23 00:09 Assessment & Plan Assessment & Plan (1) Schizophrenia: Status: Acute Code(s): F20.9 - Schizophrenia, unspecified (2) Failure to thrive in adult: Status: Acute Code(s): R62.7 - Adult failure to thrive Plan The patient is a 63-year-old male with a past history of schizophrenia who had been in and out of several facilities in the last year with severe hypoactive behavior, catatonic like symptoms and chronic noncompliance who needed to go for [facility] 7 and 8 for ECT. Even though that he had been treated with antipsychotics he remains still internally preoccupied. Plan 01/22/2024: No changes to current plan. Will add MiraLax 01/22: no changes 01/23 continue tx 01/24 continue tx. 01/25 continue tx 01/27 continue tx. 01/28: Continue current regimen and plans 01/29: Continue current regimen and plans. 01/30 continue tx. awaiting guardianship. 01/31 continue tx. 02/01 continue tx. 02/02 continue tx. 02/03 continue tx. 02/06 continue tx. 02/08: stable presentation. continue current mgmt. 02/09: no change 02/10: no change 02/11 continue same treatment 02/12 continue same treatment 02/13 continue tx. 02/14 continue tx. 02/15 continue tx 02/17 continue same treatment 02/18: appears slightly more wakeful and energetic than last time this auto service writer met with pt. continue current mgmt. 02/19: as per yesterday. 02/20 continue tx. 02/21 continue tx. 02/22 continue tx. 02/24 continue tx. 02/25 no change ? worsening- follow vs get labs if continues to refuse food/hydration 02/27 continue tx. 02/28 continue tx. 03/02: slowed, appears tired/fatigued. poor PO intake. continue current mgmt. 03/03 continue tx. 03/04: continue current management and treatment plan. 03/05: Continue current management and treatment plan. 03/06: Continue current management and treatment plan. 03/07 continue tx. 03/10 cmp elevation in BUN, cr at baseline. BP low even with midodrine, may benefit from IV fluids if refuses increase fluid intake. 03/11 keep same treatment 03/12 keep same treatment 03/13 continue tx. 03/14 continue tx. 03/15 continue tx. 03/16 add am dose of risperidone 0.5mg po daily. 03/17 continue tx. 03/18 continue tx. 03/19 increase daily risperidone to 1mg po daily. continue risperidone 2mg po qhs. 03/20 continue tx. 03/24 continue same treatment 03/25: Continue current regimen and plans 03/26: Continue current regimen and plans 03/27 continue tx. switch provigil to adderall. increase trintellix. 03/28 continue tx. 03/29 continue td 03/30 increase adderall to 10mg po daily 04/01/2024 Continue Adderall mirtazapine Risperdal do not appear to be effective we would consider trial of unilateral ECT consider more stimulating antipsychotic 04/02/2024 See above continue recommendations encourage out of bed 04/03 continue tx. 04/04 continue tx. 04/05 continue tx. 04/06 continue tx. 04/07 continue tx. 04/08 CTP 04/09 zofran prn nausea, and inc mirtazapine to 15mg..otherwise CTP Patient educated on: medication risk/benefits Informed Consent: further education needed Reason for continued inpatient stay Substantial Risk for: inability to function, rapid decompensation and med/psych decompensation Time Spent With Patient Time: Total time managing care of this patient today ____ minutes.
[2024-04-09 18:05] VITALS: BP 105/61
[2024-04-09 20:00] VITALS: BP 102/61; TEMP 36.9; O2SAT 94
[2024-04-09] MEDS: Memantine HCl 5 MG TABLET PO (20:46)
[2024-04-09] MEDS: Sennosides 8.6 MG TABLET PO (20:46)
[2024-04-09] MEDS: Mirtazapine 15 MG TABLET PO (20:47)
[2024-04-09] MEDS: risperiDONE 2 MG TABLET PO (20:47)
[2024-04-10 05:59] VITALS: BP 86/55
[2024-04-10] MEDS: Midodrine HCl 10 MG TABLET PO ×3 (05:59→18:14)
[2024-04-10 08:00] VITALS: BP 123/65; PULSE 88; TEMP 37.7; O2SAT 96
[2024-04-10] MEDS: Vortioxetine Hydrobromide 10 MG TABLET PO (09:23)
[2024-04-10] MEDS: Dextroamphetamine/Amphetamine XR 5 MG CAP.ER.24H 10 MG PO (09:23)
[2024-04-10] MEDS: Cholecalciferol (Vitamin D3) 25 MCG TABLET PO (09:23)
[2024-04-10] MEDS: Cyanocobalamin (Vitamin B-12) 1,000 MCG TABLET 1000 MCG PO (09:23)
[2024-04-10] MEDS: Memantine HCl 5 MG TABLET PO ×2 (09:23→19:45)
[2024-04-10] MEDS: Famotidine 20 MG TABLET PO (09:23)
[2024-04-10] MEDS: risperiDONE 1 MG TABLET PO (09:24)
--- NOTE | 2024-04-10 09:58 | HO.PSYCHPN ---
Subjective Subjective Date of Service: 04/10/24 Reason For Visit: Schizoaffective disorder, unspecified type Subjective Notes: Section 8 Interim History: Slept through the night. Minimal interactions with peers or staff, avoids conversation. No aggression towards self or others. Review of Systems Review of Systems Constipation Yes all other systems are reviewed and are negative and Unobtainable due to mental status Mental Status Exam Mental Status Exam Patient Appearance: Fatigued and Disheveled Patient Orientation: Person, Place and Situation Level of Consciousness: Awake and Drowsy Patient Behavior: Dependent and Passive Mood Description: Withdrawn Affect Description: Blunted Patient Cognition Impaired: Yes Ability to Follow Directions: Good Speech Pattern: Impoverished Diagnostics Vital Signs (24Hr): Vital Signs - 24 hr 04/09/24 11:42 04/09/24 18:05 04/09/24 20:00 Temperature 98.4 F Pulse Rate Blood Pressure 78/56 L 105/61 102/61 Pulse Oximetry 94 Oxygen Delivery Method Room Air 04/10/24 05:59 04/10/24 08:00 Temperature 99.9 F Pulse Rate 88 Blood Pressure 86/55 L 123/65 Pulse Oximetry 96 Oxygen Delivery Method Room Air BMI result Body Mass Index 18.6 Labs 03/09/24 10:51 03/09/24 10:51 Imaging Radiology Impressions: ITS Impressions Chest X-Ray 11/14/23 15:16 IMPRESSION: No evidence of acute disease. No pulmonary mass, pneumonia or pleural effusion. Chest CT 12/21/23 14:32 IMPRESSION: 1. No focal infiltrate is seen. 2. A 4 mm noncalcified subpleural nodule is seen within the posterior segment of the right upper lobe. According to the UPDATED 2017 Fleischner Society recommendations, the advised follow-up imaging for solid nodules < 6 mm is: LOW RISK PATIENT: No routine follow-up. HIGH RISK PATIENT: Optional CT at 12 months. 3. There is no thoracic lymphadenopathy or pleural effusion. 4. There is a marked kyphoscoliosis. No acute or aggressive osseous lesion is seen. 5. There is mild cholelithiasis. Fleischner guidelines were followed. KUB X-Ray 01/17/24 10:57 IMPRESSION: Multiple prominent, distended air-filled loops of small and large bowel. [id number] amount of stool in the colon. Correlation with clinical exam recommended to determine further management including possible additional imaging with CT scan of the abdomen and pelvis if abdominal pathology is suspected. This study was presented today January 19, 2024 for interpretation. Stat results provided at this time as requested by referring provider. Medications Medications Current Medications Amphetamine/Dextroamphetamine (Dextroamphetamine/Amphetamine Xr 5 Mg Cap.Er.24h) 10 mg PO DAILY [facility] Last Admin: 04/10/24 09:23 Dose: 10 mg Cyanocobalamin (Cyanocobalamin (Vitamin B-12) 1,000 Mcg Tablet) 1,000 mcg PO DAILY [facility] Last Admin: 04/10/24 09:23 Dose: 1,000 mcg Famotidine (Famotidine 20 Mg Tablet) 20 mg PO DAILY [facility] Last Admin: 04/10/24 09:23 Dose: 20 mg Loperamide HCl (Loperamide Hcl 2 Mg Capsule) 2 mg PO Q4H PRN PRN Reason: loose stools Last Admin: 01/13/24 15:22 Dose: 2 mg Magnesium Hydroxide (Milk Of Magnesia 30 Ml Oral.Susp) 30 ml PO BID PRN PRN Reason: Constipation Last Admin: 03/25/24 09:00 Dose: 30 ml Memantine (Memantine Hcl 5 Mg Tablet) 5 mg PO BID [facility] Last Admin: 04/10/24 09:23 Dose: 5 mg Midodrine (Midodrine Hcl 10 Mg Tablet) 10 mg PO TID@0600,1200,1800 [facility] Last Admin: 04/10/24 05:59 Dose: 10 mg Mirtazapine (Mirtazapine 15 Mg Tablet) 15 mg PO BEDTIME [facility] Last Admin: 04/09/24 20:47 Dose: 15 mg Ondansetron HCl (Ondansetron Odt 4 Mg Tab.Rapdis) 4 mg TRANSLINGU Q12H PRN PRN Reason: Nausea and Vomiting Polyethylene Glycol (Polyethylene Glycol 3350 17 Gm Powd.Pack) 17 gm PO DAILY PRN PRN Reason: contipation Last Admin: 03/14/24 08:50 Dose: 17 gm Risperidone (Risperidone 2 Mg Tablet) 2 mg PO BEDTIME [facility] Last Admin: 04/09/24 20:47 Dose: 2 mg Risperidone (Risperidone 1 Mg Tablet) 1 mg PO DAILY [facility] Last Admin: 04/10/24 09:24 Dose: 1 mg Senna (Sennosides 8.6 Mg Tablet) 8.6 mg PO BEDTIME [facility] Last Admin: 04/09/24 20:46 Dose: 8.6 mg Vitamin D (Cholecalciferol (Vitamin D3) 25 Mcg Tablet) 25 mcg PO DAILY [facility] Last Admin: 04/10/24 09:23 Dose: 25 mcg Vortioxetine (Vortioxetine Hydrobromide 10 Mg Tablet) 10 mg PO DAILY [facility] Last Admin: 04/10/24 09:23 Dose: 10 mg Allergies Allergies Allergy/AdvReac Type Severity Reaction Status Date / Time omeprazole Allergy Unknown Verified 10/30/23 00:09 Assessment & Plan Assessment & Plan (1) Schizophrenia: Status: Acute Code(s): F20.9 - Schizophrenia, unspecified (2) Failure to thrive in adult: Status: Acute Code(s): R62.7 - Adult failure to thrive Plan The patient is a 63-year-old male with a past history of schizophrenia who had been in and out of several facilities in the last year with severe hypoactive behavior, catatonic like symptoms and chronic noncompliance who needed to go for Section 7 and 8 for ECT. Even though that he had been treated with antipsychotics he remains still internally preoccupied. Plan 01/22/2024: No changes to current plan. Will add MiraLax 01/22: no changes 01/23 continue tx 01/24 continue tx. 01/25 continue tx 01/27 continue tx. 01/28: Continue current regimen and plans 01/29: Continue current regimen and plans. 01/30 continue tx. awaiting guardianship. 01/31 continue tx. 02/01 continue tx. 02/02 continue tx. 02/03 continue tx. 02/06 continue tx. 02/08: stable presentation. continue current mgmt. 02/09: no change 02/10: no change 02/11 continue same treatment 02/12 continue same treatment 02/13 continue tx. 02/14 continue tx. 02/15 continue tx 02/17 continue same treatment 02/18: appears slightly more wakeful and energetic than last time this medical writer met with pt. continue current mgmt. 02/19: as per yesterday. 02/20 continue tx. 02/21 continue tx. 02/22 continue tx. 02/24 continue tx. 02/25 no change ? worsening- follow vs get labs if continues to refuse food/hydration 02/27 continue tx. 02/28 continue tx. 03/02: slowed, appears tired/fatigued. poor PO intake. continue current mgmt. 03/03 continue tx. 03/04: continue current management and treatment plan. 03/05: Continue current management and treatment plan. 03/06: Continue current management and treatment plan. 03/07 continue tx. 03/10 cmp elevation in BUN, cr at baseline. BP low even with midodrine, may benefit from IV fluids if refuses increase fluid intake. 03/11 keep same treatment 03/12 keep same treatment 03/13 continue tx. 03/14 continue tx. 03/15 continue tx. 03/16 add am dose of risperidone 0.5mg po daily. 03/17 continue tx. 03/18 continue tx. 03/19 increase daily risperidone to 1mg po daily. continue risperidone 2mg po qhs. 03/20 continue tx. 03/24 continue same treatment 03/25: Continue current regimen and plans 03/26: Continue current regimen and plans 03/27 continue tx. switch provigil to adderall. increase trintellix. 03/28 continue tx. 03/29 continue td 03/30 increase adderall to 10mg po daily 04/01/2024 Continue Adderall mirtazapine Risperdal do not appear to be effective we would consider trial of unilateral ECT consider more stimulating antipsychotic 04/02/2024 See above continue recommendations encourage out of bed 04/03 continue tx. 04/04 continue tx. 04/05 continue tx. 04/06 continue tx. 04/07 continue tx. 04/08 CTP 04/09 continue tx. Reason for continued inpatient stay Substantial Risk for: inability to function Time Spent With Patient Time: Total time managing care of this patient today ____ minutes.
[2024-04-10 11:26] VITALS: BP 108/65
[2024-04-10 18:15] VITALS: BP 88/51
[2024-04-10] MEDS: Sennosides 8.6 MG TABLET PO (19:45)
[2024-04-10] MEDS: Mirtazapine 15 MG TABLET PO (19:45)
[2024-04-10] MEDS: risperiDONE 2 MG TABLET PO (19:45)
[2024-04-10 20:00] VITALS: BP 103/63; PULSE 70; RESP 18; TEMP 36.6; O2SAT 96
[2024-04-11 05:29] VITALS: BP 94/65; PULSE 74; RESP 14; TEMP 36.6; O2SAT 94
[2024-04-11 05:31] VITALS: BP 94/65
[2024-04-11] MEDS: Midodrine HCl 10 MG TABLET PO ×3 (05:31→17:53)
--- NOTE | 2024-04-11 07:32 | P.PNPSI_ITS ---
Subjective Subjective Date of Service: 04/11/24 Reason For Visit: Schizoaffective disorder, unspecified type Subjective Notes: Section 8 Interim History: Slept through the night. Minimal interactions with peers or staff, avoids conversation. No aggression towards self or others. Visible for some meals. VS stable. Review of Systems Review of Systems Constipation Yes all other systems are reviewed and are negative and Unobtainable due to mental status Mental Status Exam Mental Status Exam Patient Appearance: Fatigued and Disheveled Patient Orientation: Person, Place and Situation Level of Consciousness: Awake and Drowsy Patient Behavior: Dependent and Passive Mood Description: Withdrawn Affect Description: Blunted Patient Cognition Impaired: Yes Ability to Follow Directions: Good Speech Pattern: Impoverished Diagnostics Vital Signs (24Hr): Vital Signs - 24 hr 04/10/24 08:00 04/10/24 11:26 04/10/24 18:15 Temperature 99.9 F Pulse Rate 88 Respiratory Rate Blood Pressure 123/65 108/65 88/51 L Pulse Oximetry 96 Oxygen Delivery Method Room Air 04/10/24 20:00 04/11/24 05:29 04/11/24 05:31 Temperature 97.8 F 97.8 F Pulse Rate 70 74 Respiratory Rate 18 14 Blood Pressure 103/63 94/65 94/65 Pulse Oximetry 96 94 Oxygen Delivery Method Room Air Room Air BMI result Body Mass Index 18.6 Labs 03/09/24 10:51 03/09/24 10:51 Imaging Radiology Impressions: ITS Impressions Chest X-Ray 11/14/23 15:16 IMPRESSION: No evidence of acute disease. No pulmonary mass, pneumonia or pleural effusion. Chest CT 12/21/23 14:32 IMPRESSION: 1. No focal infiltrate is seen. 2. A 4 mm noncalcified subpleural nodule is seen within the posterior segment of the right upper lobe. According to the UPDATED 2017 Fleischner Society recommendations, the advised follow-up imaging for solid nodules < 6 mm is: LOW RISK PATIENT: No routine follow-up. HIGH RISK PATIENT: Optional CT at 12 months. 3. There is no thoracic lymphadenopathy or pleural effusion. 4. There is a marked kyphoscoliosis. No acute or aggressive osseous lesion is seen. 5. There is mild cholelithiasis. Fleischner guidelines were followed. KUB X-Ray 01/17/24 10:57 IMPRESSION: Multiple prominent, distended air-filled loops of small and large bowel. [id number]-[id number] amount of stool in the colon. Correlation with clinical exam recommended to determine further management including possible additional imaging with CT scan of the abdomen and pelvis if abdominal pathology is suspected. This study was presented today January 19, 2024 for interpretation. Stat results provided at this time as requested by referring provider. Medications Medications Current Medications Amphetamine/Dextroamphetamine (Dextroamphetamine/Amphetamine Xr 5 Mg Cap.Er.24h) 10 mg PO DAILY [facility] Last Admin: 04/10/24 09:23 Dose: 10 mg Cyanocobalamin (Cyanocobalamin (Vitamin B-12) 1,000 Mcg Tablet) 1,000 mcg PO DAILY [facility] Last Admin: 04/10/24 09:23 Dose: 1,000 mcg Famotidine (Famotidine 20 Mg Tablet) 20 mg PO DAILY [facility] Last Admin: 04/10/24 09:23 Dose: 20 mg Loperamide HCl (Loperamide Hcl 2 Mg Capsule) 2 mg PO Q4H PRN PRN Reason: loose stools Last Admin: 01/13/24 15:22 Dose: 2 mg Magnesium Hydroxide (Milk Of Magnesia 30 Ml Oral.Susp) 30 ml PO BID PRN PRN Reason: Constipation Last Admin: 03/25/24 09:00 Dose: 30 ml Memantine (Memantine Hcl 5 Mg Tablet) 5 mg PO BID [facility] Last Admin: 04/10/24 19:45 Dose: 5 mg Midodrine (Midodrine Hcl 10 Mg Tablet) 10 mg PO TID@0600,1200,1800 [facility] Last Admin: 04/11/24 05:31 Dose: 10 mg Mirtazapine (Mirtazapine 15 Mg Tablet) 15 mg PO BEDTIME [facility] Last Admin: 04/10/24 19:45 Dose: 15 mg Ondansetron HCl (Ondansetron Odt 4 Mg Tab.Rapdis) 4 mg TRANSLINGU Q12H PRN PRN Reason: Nausea and Vomiting Polyethylene Glycol (Polyethylene Glycol 3350 17 Gm Powd.Pack) 17 gm PO DAILY PRN PRN Reason: contipation Last Admin: 03/14/24 08:50 Dose: 17 gm Risperidone (Risperidone 2 Mg Tablet) 2 mg PO BEDTIME [facility] Last Admin: 04/10/24 19:45 Dose: 2 mg Risperidone (Risperidone 1 Mg Tablet) 1 mg PO DAILY [facility] Last Admin: 04/10/24 09:24 Dose: 1 mg Senna (Sennosides 8.6 Mg Tablet) 8.6 mg PO BEDTIME [facility] Last Admin: 04/10/24 19:45 Dose: 8.6 mg Vitamin D (Cholecalciferol (Vitamin D3) 25 Mcg Tablet) 25 mcg PO DAILY [facility] Last Admin: 04/10/24 09:23 Dose: 25 mcg Vortioxetine (Vortioxetine Hydrobromide 10 Mg Tablet) 10 mg PO DAILY [facility] Last Admin: 04/10/24 09:23 Dose: 10 mg Allergies Allergies Allergy/AdvReac Type Severity Reaction Status Date / Time omeprazole Allergy Unknown Verified 10/30/23 00:09 Assessment & Plan Assessment & Plan (1) Schizophrenia: Status: Acute Code(s): F20.9 - Schizophrenia, unspecified (2) Failure to thrive in adult: Status: Acute Code(s): R62.7 - Adult failure to thrive Plan The patient is a 63-year-old male with a past history of schizophrenia who had been in and out of several facilities in the last year with severe hypoactive behavior, catatonic like symptoms and chronic noncompliance who needed to go for [facility] 7 and 8 for ECT. Even though that he had been treated with antipsychotics he remains still internally preoccupied. Plan 01/22/2024: No changes to current plan. Will add MiraLax 01/22: no changes 01/23 continue tx 01/24 continue tx. 01/25 continue tx 01/27 continue tx. 01/28: Continue current regimen and plans 01/29: Continue current regimen and plans. 01/30 continue tx. awaiting guardianship. 01/31 continue tx. 02/01 continue tx. 02/02 continue tx. 02/03 continue tx. 02/06 continue tx. 02/08: stable presentation. continue current mgmt. 02/09: no change 02/10: no change 02/11 continue same treatment 02/12 continue same treatment 02/13 continue tx. 02/14 continue tx. 02/15 continue tx 02/17 continue same treatment 02/18: appears slightly more wakeful and energetic than last time this commercial insurance underwriter met with pt. continue current mgmt. 02/19: as per yesterday. 02/20 continue tx. 02/21 continue tx. 02/22 continue tx. 02/24 continue tx. 02/25 no change ? worsening- follow vs get labs if continues to refuse food/hydration 02/27 continue tx. 02/28 continue tx. 03/02: slowed, appears tired/fatigued. poor PO intake. continue current mgmt. 03/03 continue tx. 03/04: continue current management and treatment plan. 03/05: Continue current management and treatment plan. 03/06: Continue current management and treatment plan. 03/07 continue tx. 03/10 cmp elevation in BUN, cr at baseline. BP low even with midodrine, may benefit from IV fluids if refuses increase fluid intake. 03/11 keep same treatment 03/12 keep same treatment 03/13 continue tx. 03/14 continue tx. 03/15 continue tx. 03/16 add am dose of risperidone 0.5mg po daily. 03/17 continue tx. 03/18 continue tx. 03/19 increase daily risperidone to 1mg po daily. continue risperidone 2mg po qhs. 03/20 continue tx. 03/24 continue same treatment 03/25: Continue current regimen and plans 03/26: Continue current regimen and plans 03/27 continue tx. switch provigil to adderall. increase trintellix. 03/28 continue tx. 03/29 continue td 03/30 increase adderall to 10mg po daily 04/01/2024 Continue Adderall mirtazapine Risperdal do not appear to be effective we would consider trial of unilateral ECT consider more stimulating antipsychotic 04/02/2024 See above continue recommendations encourage out of bed 04/03 continue tx. 04/04 continue tx. 04/05 continue tx. 04/06 continue tx. 04/07 continue tx. 04/08 CTP 04/09 continue tx. 04/11 continue tx. Reason for continued inpatient stay Substantial Risk for: inability to function Time Spent With Patient Time: Total time managing care of this patient today ____ minutes.
[2024-04-11 08:00] VITALS: BP 138/51; PULSE 77; RESP 16; TEMP 36.1; O2SAT 94
[2024-04-11] MEDS: Famotidine 20 MG TABLET PO (08:18)
[2024-04-11] MEDS: Vortioxetine Hydrobromide 10 MG TABLET PO (08:18)
[2024-04-11] MEDS: risperiDONE 1 MG TABLET PO (08:18)
[2024-04-11] MEDS: Dextroamphetamine/Amphetamine XR 5 MG CAP.ER.24H 10 MG PO (08:18)
[2024-04-11] MEDS: Cyanocobalamin (Vitamin B-12) 1,000 MCG TABLET 1000 MCG PO (08:18)
[2024-04-11] MEDS: Cholecalciferol (Vitamin D3) 25 MCG TABLET PO (08:18)
[2024-04-11] MEDS: Memantine HCl 5 MG TABLET PO ×2 (08:18→20:33)
[2024-04-11 12:23] VITALS: BP 93/51; PULSE 77; RESP 16
[2024-04-11 17:46] VITALS: BP 92/53; PULSE 74; RESP 16; O2SAT 92
[2024-04-11 20:00] VITALS: BP 96/66; PULSE 78; RESP 18; TEMP 36.4; O2SAT 96
[2024-04-11] MEDS: Mirtazapine 15 MG TABLET PO (20:33)
[2024-04-11] MEDS: risperiDONE 2 MG TABLET PO (20:33)
[2024-04-11] MEDS: Sennosides 8.6 MG TABLET PO (20:33)
[2024-04-12 06:34] VITALS: BP 96/63
[2024-04-12] MEDS: Midodrine HCl 10 MG TABLET PO ×3 (06:34→17:29)
[2024-04-12 08:00] VITALS: BP 94/50; PULSE 64; RESP 16; TEMP 36.9; O2SAT 95
[2024-04-12] MEDS: Famotidine 20 MG TABLET PO (08:14)
[2024-04-12] MEDS: Cholecalciferol (Vitamin D3) 25 MCG TABLET PO (08:14)
[2024-04-12] MEDS: Dextroamphetamine/Amphetamine XR 5 MG CAP.ER.24H 10 MG PO (08:14)
[2024-04-12] MEDS: Cyanocobalamin (Vitamin B-12) 1,000 MCG TABLET 1000 MCG PO (08:15)
[2024-04-12] MEDS: Vortioxetine Hydrobromide 10 MG TABLET PO (08:15)
[2024-04-12] MEDS: risperiDONE 1 MG TABLET PO (08:22)
[2024-04-12] MEDS: Memantine HCl 5 MG TABLET PO ×2 (08:23→19:53)
[2024-04-12 12:20] VITALS: BP 109/75; PULSE 96; RESP 16; O2SAT 93
--- NOTE | 2024-04-12 16:55 | P.PNPSI_ITS ---
Subjective Subjective Date of Service: 04/12/24 Reason For Visit: Schizoaffective disorder, unspecified type Subjective Notes: Section 8 Interim History: Slept through the night. Minimal interactions with peers or staff, avoids conversation. No aggression towards self or others. Visible for some meals. VS stable. Review of Systems Review of Systems Constipation Yes all other systems are reviewed and are negative and Unobtainable due to mental status Mental Status Exam Mental Status Exam Patient Appearance: Fatigued and Disheveled Patient Orientation: Person, Place and Situation Level of Consciousness: Awake and Drowsy Patient Behavior: Dependent and Passive Mood Description: Withdrawn Affect Description: Blunted Patient Cognition Impaired: Yes Ability to Follow Directions: Good Speech Pattern: Impoverished Diagnostics Vital Signs (24Hr): Vital Signs - 24 hr 04/11/24 17:46 04/11/24 20:00 04/12/24 06:34 Temperature 97.5 F Pulse Rate 74 78 Respiratory Rate 16 18 Blood Pressure 92/53 L 96/66 96/63 Pulse Oximetry 92 96 Oxygen Delivery Method Room Air Room Air 04/12/24 08:00 04/12/24 12:20 Temperature 98.4 F Pulse Rate 64 96 Respiratory Rate 16 16 Blood Pressure 94/50 L 109/75 Pulse Oximetry 95 93 Oxygen Delivery Method Room Air Room Air BMI result Body Mass Index 18.6 Labs 03/09/24 10:51 03/09/24 10:51 Imaging Radiology Impressions: ITS Impressions Chest X-Ray 11/14/23 15:16 IMPRESSION: No evidence of acute disease. No pulmonary mass, pneumonia or pleural effusion. Chest CT 12/21/23 14:32 IMPRESSION: 1. No focal infiltrate is seen. 2. A 4 mm noncalcified subpleural nodule is seen within the posterior segment of the right upper lobe. According to the UPDATED 2017 Fleischner Society recommendations, the advised follow-up imaging for solid nodules < 6 mm is: LOW RISK PATIENT: No routine follow-up. HIGH RISK PATIENT: Optional CT at 12 months. 3. There is no thoracic lymphadenopathy or pleural effusion. 4. There is a marked kyphoscoliosis. No acute or aggressive osseous lesion is seen. 5. There is mild cholelithiasis. Fleischner guidelines were followed. KUB X-Ray 01/17/24 10:57 IMPRESSION: Multiple prominent, distended air-filled loops of small and large bowel. Ymchuawv-mm-umiod amount of stool in the colon. Correlation with clinical exam recommended to determine further management including possible additional imaging with CT scan of the abdomen and pelvis if abdominal pathology is suspected. This study was presented today January 19, 2024 for interpretation. Stat results provided at this time as requested by referring provider. Medications Medications Current Medications Amphetamine/Dextroamphetamine (Dextroamphetamine/Amphetamine Xr 5 Mg Cap.Er.24h) 10 mg PO DAILY COUNTS INCLUDE 234 BEDS AT THE [facility] Last Admin: 04/12/24 08:14 Dose: 10 mg Cyanocobalamin (Cyanocobalamin (Vitamin B-12) 1,000 Mcg Tablet) 1,000 mcg PO DAILY YESY Last Admin: 04/12/24 08:15 Dose: 1,000 mcg Famotidine (Famotidine 20 Mg Tablet) 20 mg PO DAILY COUNTS INCLUDE 234 BEDS AT THE [facility] Last Admin: 04/12/24 08:14 Dose: 20 mg Loperamide HCl (Loperamide Hcl 2 Mg Capsule) 2 mg PO Q4H PRN PRN Reason: loose stools Last Admin: 01/13/24 15:22 Dose: 2 mg Magnesium Hydroxide (Milk Of Magnesia 30 Ml Oral.Susp) 30 ml PO BID PRN PRN Reason: Constipation Last Admin: 03/25/24 09:00 Dose: 30 ml Memantine (Memantine Hcl 5 Mg Tablet) 5 mg PO BID COUNTS INCLUDE 234 BEDS AT THE [facility] Last Admin: 04/12/24 08:23 Dose: 5 mg Midodrine (Midodrine Hcl 10 Mg Tablet) 10 mg PO TID@0600,1200,1800 COUNTS INCLUDE 234 BEDS AT THE [facility] Last Admin: 04/12/24 12:04 Dose: 10 mg Mirtazapine (Mirtazapine 15 Mg Tablet) 15 mg PO BEDTIME COUNTS INCLUDE 234 BEDS AT THE [facility] Last Admin: 04/11/24 20:33 Dose: 15 mg Ondansetron HCl (Ondansetron Odt 4 Mg Tab.Rapdis) 4 mg TRANSLINGU Q12H PRN PRN Reason: Nausea and Vomiting Polyethylene Glycol (Polyethylene Glycol 3350 17 Gm Powd.Pack) 17 gm PO DAILY PRN PRN Reason: contipation Last Admin: 03/14/24 08:50 Dose: 17 gm Risperidone (Risperidone 2 Mg Tablet) 2 mg PO BEDTIME COUNTS INCLUDE 234 BEDS AT THE [facility] Last Admin: 04/11/24 20:33 Dose: 2 mg Risperidone (Risperidone 1 Mg Tablet) 1 mg PO DAILY COUNTS INCLUDE 234 BEDS AT THE [facility] Last Admin: 04/12/24 08:22 Dose: 1 mg Senna (Sennosides 8.6 Mg Tablet) 8.6 mg PO BEDTIME COUNTS INCLUDE 234 BEDS AT THE [facility] Last Admin: 04/11/24 20:33 Dose: 8.6 mg Vitamin D (Cholecalciferol (Vitamin D3) 25 Mcg Tablet) 25 mcg PO DAILY COUNTS INCLUDE 234 BEDS AT THE [facility] Last Admin: 04/12/24 08:14 Dose: 25 mcg Vortioxetine (Vortioxetine Hydrobromide 10 Mg Tablet) 10 mg PO DAILY COUNTS INCLUDE 234 BEDS AT THE [facility] Last Admin: 04/12/24 08:15 Dose: 10 mg Allergies Allergies Allergy/AdvReac Type Severity Reaction Status Date / Time omeprazole Allergy Unknown Verified 10/30/23 00:09 Assessment & Plan Assessment & Plan (1) Schizophrenia: Status: Acute Code(s): F20.9 - Schizophrenia, unspecified (2) Failure to thrive in adult: Status: Acute Code(s): R62.7 - Adult failure to thrive Plan The patient is a 63-year-old male with a past history of schizophrenia who had been in and out of several facilities in the last year with severe hypoactive behavior, catatonic like symptoms and chronic noncompliance who needed to go for [facility] 8 for ECT. Even though that he had been treated with antipsychotics he remains still internally preoccupied. Plan 01/22/2024: No changes to current plan. Will add MiraLax 01/22: no changes 01/23 continue tx 01/24 continue tx. 01/25 continue tx 01/27 continue tx. 01/28: Continue current regimen and plans 01/29: Continue current regimen and plans. 01/30 continue tx. awaiting guardianship. 01/31 continue tx. 02/01 continue tx. 02/02 continue tx. 02/03 continue tx. 02/06 continue tx. 02/08: stable presentation. continue current mgmt. 02/09: no change 02/10: no change 02/11 continue same treatment 02/12 continue same treatment 02/13 continue tx. 02/14 continue tx. 02/15 continue tx 02/17 continue same treatment 02/18: appears slightly more wakeful and energetic than last time this mortgage or loan underwriter met with pt. continue current mgmt. 02/19: as per yesterday. 02/20 continue tx. 02/21 continue tx. 02/22 continue tx. 02/24 continue tx. 02/25 no change ? worsening- follow vs get labs if continues to refuse food/hydration 02/27 continue tx. 02/28 continue tx. 03/02: slowed, appears tired/fatigued. poor PO intake. continue current mgmt. 03/03 continue tx. 03/04: continue current management and treatment plan. 03/05: Continue current management and treatment plan. 03/06: Continue current management and treatment plan. 03/07 continue tx. 03/10 cmp elevation in BUN, cr at baseline. BP low even with midodrine, may benefit from IV fluids if refuses increase fluid intake. 03/11 keep same treatment 03/12 keep same treatment 03/13 continue tx. 03/14 continue tx. 03/15 continue tx. 03/16 add am dose of risperidone 0.5mg po daily. 03/17 continue tx. 03/18 continue tx. 03/19 increase daily risperidone to 1mg po daily. continue risperidone 2mg po qhs. 03/20 continue tx. 03/24 continue same treatment 03/25: Continue current regimen and plans 03/26: Continue current regimen and plans 03/27 continue tx. switch provigil to adderall. increase trintellix. 03/28 continue tx. 03/29 continue td 03/30 increase adderall to 10mg po daily 04/01/2024 Continue Adderall mirtazapine Risperdal do not appear to be effective we would consider trial of unilateral ECT consider more stimulating antipsychotic 04/02/2024 See above continue recommendations encourage out of bed 04/03 continue tx. 04/04 continue tx. 04/05 continue tx. 04/06 continue tx. 04/07 continue tx. 04/08 CTP 04/09 continue tx. 04/11 continue tx. 04/12 continue tx. Reason for continued inpatient stay Substantial Risk for: inability to function Time Spent With Patient Time: Total time managing care of this patient today ____ minutes.
[2024-04-12 17:25] VITALS: BP 109/64; PULSE 89; RESP 16; O2SAT 93
[2024-04-12 19:52] VITALS: BP 107/74; PULSE 96; RESP 16; TEMP 36.3; O2SAT 96
[2024-04-12] MEDS: risperiDONE 2 MG TABLET PO (19:52)
[2024-04-12] MEDS: Mirtazapine 15 MG TABLET PO (19:53)
[2024-04-12] MEDS: Sennosides 8.6 MG TABLET PO (19:53)
[2024-04-13 05:28] VITALS: BP 93/69; PULSE 81
[2024-04-13 05:29] VITALS: BP 93/69
[2024-04-13] MEDS: Midodrine HCl 10 MG TABLET PO ×3 (05:29→18:47)
[2024-04-13 07:00] VITALS: BMI 19.6
[2024-04-13 09:43] VITALS: BP 106/68; PULSE 74; RESP 20; TEMP 36.9; O2SAT 95
[2024-04-13] MEDS: Famotidine 20 MG TABLET PO (09:45)
[2024-04-13] MEDS: Dextroamphetamine/Amphetamine XR 5 MG CAP.ER.24H 10 MG PO (09:45)
[2024-04-13] MEDS: Cyanocobalamin (Vitamin B-12) 1,000 MCG TABLET 1000 MCG PO (09:45)
[2024-04-13] MEDS: risperiDONE 1 MG TABLET PO (09:45)
[2024-04-13] MEDS: Cholecalciferol (Vitamin D3) 25 MCG TABLET PO (09:46)
[2024-04-13] MEDS: Vortioxetine Hydrobromide 10 MG TABLET PO (09:46)
[2024-04-13] MEDS: Memantine HCl 5 MG TABLET PO ×2 (09:46→20:08)
[2024-04-13 13:46] VITALS: BP 88/57; PULSE 71
--- NOTE | 2024-04-13 18:34 | HO.PSYCHPN ---
Subjective Subjective Date of Service: 04/13/24 Reason For Visit: Schizoaffective disorder, unspecified type Subjective Notes: Section 8 Interim History: Slept through the night. Minimal interactions with peers or staff, avoids conversation. No aggression towards self or others. Visible for some meals. VS stable. Review of Systems Review of Systems Constipation Yes all other systems are reviewed and are negative and Unobtainable due to mental status Mental Status Exam Mental Status Exam Patient Appearance: Fatigued and Disheveled Patient Orientation: Person, Place and Situation Level of Consciousness: Awake and Drowsy Patient Behavior: Dependent and Passive Mood Description: Withdrawn Affect Description: Blunted Patient Cognition Impaired: Yes Ability to Follow Directions: Good Speech Pattern: Impoverished Diagnostics Vital Signs (24Hr): Vital Signs - 24 hr 04/12/24 19:52 04/13/24 05:28 04/13/24 05:29 Temperature 97.3 F Pulse Rate 96 81 Respiratory Rate 16 Blood Pressure 107/74 93/69 93/69 Pulse Oximetry 96 Oxygen Delivery Method Room Air 04/13/24 09:43 04/13/24 13:46 Temperature 98.4 F Pulse Rate 74 71 Respiratory Rate 20 Blood Pressure 106/68 88/57 L Pulse Oximetry 95 Oxygen Delivery Method Room Air BMI result Body Mass Index 19.6 Labs 03/09/24 10:51 03/09/24 10:51 Imaging Radiology Impressions: ITS Impressions Chest X-Ray 11/14/23 15:16 IMPRESSION: No evidence of acute disease. No pulmonary mass, pneumonia or pleural effusion. Chest CT 12/21/23 14:32 IMPRESSION: 1. No focal infiltrate is seen. 2. A 4 mm noncalcified subpleural nodule is seen within the posterior segment of the right upper lobe. According to the UPDATED 2017 Fleischner Society recommendations, the advised follow-up imaging for solid nodules < 6 mm is: LOW RISK PATIENT: No routine follow-up. HIGH RISK PATIENT: Optional CT at 12 months. 3. There is no thoracic lymphadenopathy or pleural effusion. 4. There is a marked kyphoscoliosis. No acute or aggressive osseous lesion is seen. 5. There is mild cholelithiasis. Fleischner guidelines were followed. KUB X-Ray 01/17/24 10:57 IMPRESSION: Multiple prominent, distended air-filled loops of small and large bowel. Gvmtemft-mg-woagz amount of stool in the colon. Correlation with clinical exam recommended to determine further management including possible additional imaging with CT scan of the abdomen and pelvis if abdominal pathology is suspected. This study was presented today January 19, 2024 for interpretation. Stat results provided at this time as requested by referring provider. Medications Medications Current Medications Amphetamine/Dextroamphetamine (Dextroamphetamine/Amphetamine Xr 5 Mg Cap.Er.24h) 10 mg PO DAILY [facility] Last Admin: 04/13/24 09:45 Dose: 10 mg Cyanocobalamin (Cyanocobalamin (Vitamin B-12) 1,000 Mcg Tablet) 1,000 mcg PO DAILY [facility] Last Admin: 04/13/24 09:45 Dose: 1,000 mcg Famotidine (Famotidine 20 Mg Tablet) 20 mg PO DAILY [facility] Last Admin: 04/13/24 09:45 Dose: 20 mg Loperamide HCl (Loperamide Hcl 2 Mg Capsule) 2 mg PO Q4H PRN PRN Reason: loose stools Last Admin: 01/13/24 15:22 Dose: 2 mg Magnesium Hydroxide (Milk Of Magnesia 30 Ml Oral.Susp) 30 ml PO BID PRN PRN Reason: Constipation Last Admin: 03/25/24 09:00 Dose: 30 ml Memantine (Memantine Hcl 5 Mg Tablet) 5 mg PO BID [facility] Last Admin: 04/13/24 09:46 Dose: 5 mg Midodrine (Midodrine Hcl 10 Mg Tablet) 10 mg PO TID@0600,1200,1800 [facility] Last Admin: 04/13/24 13:47 Dose: 10 mg Mirtazapine (Mirtazapine 15 Mg Tablet) 15 mg PO BEDTIME [facility] Last Admin: 04/12/24 19:53 Dose: 15 mg Ondansetron HCl (Ondansetron Odt 4 Mg Tab.Rapdis) 4 mg TRANSLINGU Q12H PRN PRN Reason: Nausea and Vomiting Polyethylene Glycol (Polyethylene Glycol 3350 17 Gm Powd.Pack) 17 gm PO DAILY PRN PRN Reason: contipation Last Admin: 03/14/24 08:50 Dose: 17 gm Risperidone (Risperidone 2 Mg Tablet) 2 mg PO BEDTIME [facility] Last Admin: 04/12/24 19:52 Dose: 2 mg Risperidone (Risperidone 1 Mg Tablet) 1 mg PO DAILY [facility] Last Admin: 04/13/24 09:45 Dose: 1 mg Senna (Sennosides 8.6 Mg Tablet) 8.6 mg PO BEDTIME [facility] Last Admin: 04/12/24 19:53 Dose: 8.6 mg Vitamin D (Cholecalciferol (Vitamin D3) 25 Mcg Tablet) 25 mcg PO DAILY [facility] Last Admin: 04/13/24 09:46 Dose: 25 mcg Vortioxetine (Vortioxetine Hydrobromide 10 Mg Tablet) 10 mg PO DAILY [facility] Last Admin: 04/13/24 09:46 Dose: 10 mg Allergies Allergies Allergy/AdvReac Type Severity Reaction Status Date / Time omeprazole Allergy Unknown Verified 10/30/23 00:09 Assessment & Plan Assessment & Plan (1) Schizophrenia: Status: Acute Code(s): F20.9 - Schizophrenia, unspecified (2) Failure to thrive in adult: Status: Acute Code(s): R62.7 - Adult failure to thrive Plan The patient is a 63-year-old male with a past history of schizophrenia who had been in and out of several facilities in the last year with severe hypoactive behavior, catatonic like symptoms and chronic noncompliance who needed to go for [facility] 7 [facility] 8 for ECT. Even though that he had been treated with antipsychotics he remains still internally preoccupied. Plan 01/22/2024: No changes to current plan. Will add MiraLax 01/22: no changes 01/23 continue tx 01/24 continue tx. 01/25 continue tx 01/27 continue tx. 01/28: Continue current regimen and plans 01/29: Continue current regimen and plans. 01/30 continue tx. awaiting guardianship. 01/31 continue tx. 02/01 continue tx. 02/02 continue tx. 02/03 continue tx. 02/06 continue tx. 02/08: stable presentation. continue current mgmt. 02/09: no change 02/10: no change 02/11 continue same treatment 02/12 continue same treatment 02/13 continue tx. 02/14 continue tx. 02/15 continue tx 02/17 continue same treatment 02/18: appears slightly more wakeful and energetic than last time this freelance copywriter met with pt. continue current mgmt. 02/19: as per yesterday. 02/20 continue tx. 02/21 continue tx. 02/22 continue tx. 02/24 continue tx. 02/25 no change ? worsening- follow vs get labs if continues to refuse food/hydration 02/27 continue tx. 02/28 continue tx. 03/02: slowed, appears tired/fatigued. poor PO intake. continue current mgmt. 03/03 continue tx. 03/04: continue current management and treatment plan. 03/05: Continue current management and treatment plan. 03/06: Continue current management and treatment plan. 03/07 continue tx. 03/10 cmp elevation in BUN, cr at baseline. BP low even with midodrine, may benefit from IV fluids if refuses increase fluid intake. 03/11 keep same treatment 03/12 keep same treatment 03/13 continue tx. 03/14 continue tx. 03/15 continue tx. 03/16 add am dose of risperidone 0.5mg po daily. 03/17 continue tx. 03/18 continue tx. 03/19 increase daily risperidone to 1mg po daily. continue risperidone 2mg po qhs. 03/20 continue tx. 03/24 continue same treatment 03/25: Continue current regimen and plans 03/26: Continue current regimen and plans 03/27 continue tx. switch provigil to adderall. increase trintellix. 03/28 continue tx. 03/29 continue td 03/30 increase adderall to 10mg po daily 04/01/2024 Continue Adderall mirtazapine Risperdal do not appear to be effective we would consider trial of unilateral ECT consider more stimulating antipsychotic 04/02/2024 See above continue recommendations encourage out of bed 04/03 continue tx. 04/04 continue tx. 04/05 continue tx. 04/06 continue tx. 04/07 continue tx. 04/08 CTP 04/09 continue tx. 04/11 continue tx. 04/12 continue tx. 04/13 continue tx. Reason for continued inpatient stay Substantial Risk for: inability to function Time Spent With Patient Time: Total time managing care of this patient today ____ minutes.
[2024-04-13 18:46] VITALS: BP 89/52; PULSE 70; RESP 20; TEMP 36.9; O2SAT 95
[2024-04-13 20:00] VITALS: BP 96/68; PULSE 79; RESP 16; TEMP 36.5; O2SAT 94
[2024-04-13] MEDS: Sennosides 8.6 MG TABLET PO (20:08)
[2024-04-13] MEDS: Mirtazapine 15 MG TABLET PO (20:08)
[2024-04-13] MEDS: risperiDONE 2 MG TABLET PO (20:08)
[2024-04-14 05:02] VITALS: BP 147/79; PULSE 106
[2024-04-14 05:03] VITALS: BP 147/79
[2024-04-14 08:30] VITALS: BP 89/57; PULSE 73; RESP 16; TEMP 36.6; O2SAT 93
[2024-04-14] MEDS: Cyanocobalamin (Vitamin B-12) 1,000 MCG TABLET 1000 MCG PO (08:34)
[2024-04-14] MEDS: Dextroamphetamine/Amphetamine XR 5 MG CAP.ER.24H 10 MG PO (08:34)
[2024-04-14] MEDS: Midodrine HCl 10 MG TABLET PO ×3 (08:35→17:33)
[2024-04-14] MEDS: Vortioxetine Hydrobromide 10 MG TABLET PO (08:35)
[2024-04-14] MEDS: Famotidine 20 MG TABLET PO (08:35)
[2024-04-14] MEDS: Memantine HCl 5 MG TABLET PO ×2 (08:35→21:10)
[2024-04-14] MEDS: Cholecalciferol (Vitamin D3) 25 MCG TABLET PO (08:35)
[2024-04-14] MEDS: risperiDONE 1 MG TABLET PO (08:35)
--- NOTE | 2024-04-14 09:35 | P.PNPSI_ITS ---
Subjective Subjective Date of Service: 04/14/24 Reason For Visit: Schizoaffective disorder, unspecified type Subjective Notes: Section 8 Interim History: Pt slept through the night. He is mostly in bed. avoids interactions and conversations with others. no behavioral concerns. visible for meals. No SI/HI. Diagnostics Vital Signs (24Hr): Vital Signs - 24 hr 04/13/24 09:43 04/13/24 13:46 04/13/24 18:46 Temperature 98.4 F 98.5 F Pulse Rate 74 71 70 Respiratory Rate 20 20 Blood Pressure 106/68 88/57 L 89/52 L Pulse Oximetry 95 95 Oxygen Delivery Method Room Air Room Air 04/13/24 20:00 04/14/24 05:02 04/14/24 05:03 Temperature 97.7 F Pulse Rate 79 106 H Respiratory Rate 16 Blood Pressure 96/68 147/79 H 147/79 H Pulse Oximetry 94 Oxygen Delivery Method Room Air 04/14/24 08:30 Temperature 97.9 F Pulse Rate 73 Respiratory Rate 16 Blood Pressure 89/57 L Pulse Oximetry 93 Oxygen Delivery Method Room Air BMI result Body Mass Index 19.6 Labs 03/09/24 10:51 03/09/24 10:51 Imaging Radiology Impressions: ITS Impressions Chest X-Ray 11/14/23 15:16 IMPRESSION: No evidence of acute disease. No pulmonary mass, pneumonia or pleural effusion. Chest CT 12/21/23 14:32 IMPRESSION: 1. No focal infiltrate is seen. 2. A 4 mm noncalcified subpleural nodule is seen within the posterior segment of the right upper lobe. According to the UPDATED 2017 Fleischner Society recommendations, the advised follow-up imaging for solid nodules < 6 mm is: LOW RISK PATIENT: No routine follow-up. HIGH RISK PATIENT: Optional CT at 12 months. 3. There is no thoracic lymphadenopathy or pleural effusion. 4. There is a marked kyphoscoliosis. No acute or aggressive osseous lesion is seen. 5. There is mild cholelithiasis. Fleischner guidelines were followed. KUB X-Ray 01/17/24 10:57 IMPRESSION: Multiple prominent, distended air-filled loops of small and large bowel. Atduudoy-cm-ueven amount of stool in the colon. Correlation with clinical exam recommended to determine further management including possible additional imaging with CT scan of the abdomen and pelvis if abdominal pathology is suspected. This study was presented today January 19, 2024 for interpretation. Stat results provided at this time as requested by referring provider. Medications Medications Current Medications Amphetamine/Dextroamphetamine (Dextroamphetamine/Amphetamine Xr 5 Mg Cap.Er.24h) 10 mg PO DAILY [facility] Last Admin: 04/14/24 08:34 Dose: 10 mg Cyanocobalamin (Cyanocobalamin (Vitamin B-12) 1,000 Mcg Tablet) 1,000 mcg PO DAILY [facility] Last Admin: 04/14/24 08:34 Dose: 1,000 mcg Famotidine (Famotidine 20 Mg Tablet) 20 mg PO DAILY [facility] Last Admin: 04/14/24 08:35 Dose: 20 mg Loperamide HCl (Loperamide Hcl 2 Mg Capsule) 2 mg PO Q4H PRN PRN Reason: loose stools Last Admin: 01/13/24 15:22 Dose: 2 mg Magnesium Hydroxide (Milk Of Magnesia 30 Ml Oral.Susp) 30 ml PO BID PRN PRN Reason: Constipation Last Admin: 03/25/24 09:00 Dose: 30 ml Memantine (Memantine Hcl 5 Mg Tablet) 5 mg PO BID [facility] Last Admin: 04/14/24 08:35 Dose: 5 mg Midodrine (Midodrine Hcl 10 Mg Tablet) 10 mg PO TID@0600,1200,1800 [facility] Last Admin: 04/14/24 08:35 Dose: 10 mg Mirtazapine (Mirtazapine 15 Mg Tablet) 15 mg PO BEDTIME [facility] Last Admin: 04/13/24 20:08 Dose: 15 mg Ondansetron HCl (Ondansetron Odt 4 Mg Tab.Rapdis) 4 mg TRANSLINGU Q12H PRN PRN Reason: Nausea and Vomiting Polyethylene Glycol (Polyethylene Glycol 3350 17 Gm Powd.Pack) 17 gm PO DAILY PRN PRN Reason: contipation Last Admin: 03/14/24 08:50 Dose: 17 gm Risperidone (Risperidone 2 Mg Tablet) 2 mg PO BEDTIME [facility] Last Admin: 04/13/24 20:08 Dose: 2 mg Risperidone (Risperidone 1 Mg Tablet) 1 mg PO DAILY [facility] Last Admin: 04/14/24 08:35 Dose: 1 mg Senna (Sennosides 8.6 Mg Tablet) 8.6 mg PO BEDTIME [facility] Last Admin: 04/13/24 20:08 Dose: 8.6 mg Vitamin D (Cholecalciferol (Vitamin D3) 25 Mcg Tablet) 25 mcg PO DAILY [facility] Last Admin: 04/14/24 08:35 Dose: 25 mcg Vortioxetine (Vortioxetine Hydrobromide 10 Mg Tablet) 10 mg PO DAILY [facility] Last Admin: 04/14/24 08:35 Dose: 10 mg Allergies Allergies Allergy/AdvReac Type Severity Reaction Status Date / Time omeprazole Allergy Unknown Verified 10/30/23 00:09 Assessment & Plan Assessment & Plan (1) Schizophrenia: Status: Acute Code(s): F20.9 - Schizophrenia, unspecified (2) Failure to thrive in adult: Status: Acute Code(s): R62.7 - Adult failure to thrive Plan The patient is a 63-year-old male with a past history of schizophrenia who had been in and out of several facilities in the last year with severe hypoactive behavior, catatonic like symptoms and chronic noncompliance who needed to go for [facility] 7 [facility] 8 for ECT. Even though that he had been treated with antipsychotics he remains still internally preoccupied. Plan 01/22/2024: No changes to current plan. Will add MiraLax 01/22: no changes 01/23 continue tx 01/24 continue tx. 01/25 continue tx 01/27 continue tx. 01/28: Continue current regimen and plans 01/29: Continue current regimen and plans. 01/30 continue tx. awaiting guardianship. 01/31 continue tx. 02/01 continue tx. 02/02 continue tx. 02/03 continue tx. 02/06 continue tx. 02/08: stable presentation. continue current mgmt. 02/09: no change 02/10: no change 02/11 continue same treatment 02/12 continue same treatment 02/13 continue tx. 02/14 continue tx. 02/15 continue tx 02/17 continue same treatment 02/18: appears slightly more wakeful and energetic than last time this health science writer met with pt. continue current mgmt. 02/19: as per yesterday. 02/20 continue tx. 02/21 continue tx. 02/22 continue tx. 02/24 continue tx. 02/25 no change ? worsening- follow vs get labs if continues to refuse food/hydration 02/27 continue tx. 02/28 continue tx. 03/02: slowed, appears tired/fatigued. poor PO intake. continue current mgmt. 03/03 continue tx. 03/04: continue current management and treatment plan. 03/05: Continue current management and treatment plan. 03/06: Continue current management and treatment plan. 03/07 continue tx. 03/10 cmp elevation in BUN, cr at baseline. BP low even with midodrine, may benefit from IV fluids if refuses increase fluid intake. 03/11 keep same treatment 03/12 keep same treatment 03/13 continue tx. 03/14 continue tx. 03/15 continue tx. 03/16 add am dose of risperidone 0.5mg po daily. 03/17 continue tx. 03/18 continue tx. 03/19 increase daily risperidone to 1mg po daily. continue risperidone 2mg po qhs. 03/20 continue tx. 03/24 continue same treatment 03/25: Continue current regimen and plans 03/26: Continue current regimen and plans 03/27 continue tx. switch provigil to adderall. increase trintellix. 03/28 continue tx. 03/29 continue td 03/30 increase adderall to 10mg po daily 04/01/2024 Continue Adderall mirtazapine Risperdal do not appear to be effective we would consider trial of unilateral ECT consider more stimulating antipsychotic 04/02/2024 See above continue recommendations encourage out of bed 04/03 continue tx. 04/04 continue tx. 04/05 continue tx. 04/06 continue tx. 04/07 continue tx. 04/08 CTP 04/09 continue tx. 04/11 continue tx. 04/12 continue tx. 04/13 continue tx. 04/14 continue tx. Reason for continued inpatient stay Substantial Risk for: inability to function Time Spent With Patient Time: Total time managing care of this patient today ____ minutes.
[2024-04-14 13:10] VITALS: BP 111/65; PULSE 103
[2024-04-14 17:33] VITALS: BP 100/64
[2024-04-14 20:00] VITALS: BP 97/54; PULSE 72; RESP 16; TEMP 36.1; O2SAT 93
[2024-04-14] MEDS: risperiDONE 2 MG TABLET PO (21:11)
[2024-04-14] MEDS: Mirtazapine 15 MG TABLET PO (21:11)
[2024-04-14] MEDS: Sennosides 8.6 MG TABLET PO (21:11)
[2024-04-15 06:50] VITALS: BP 99/69
[2024-04-15] MEDS: Midodrine HCl 10 MG TABLET PO ×3 (06:50→18:41)
[2024-04-15 08:57] VITALS: BP 80/53; PULSE 68; RESP 20; TEMP 36.9; O2SAT 94
[2024-04-15] MEDS: Dextroamphetamine/Amphetamine XR 5 MG CAP.ER.24H 10 MG PO (08:58)
[2024-04-15] MEDS: Cyanocobalamin (Vitamin B-12) 1,000 MCG TABLET 1000 MCG PO (08:59)
[2024-04-15] MEDS: Vortioxetine Hydrobromide 10 MG TABLET PO (08:59)
[2024-04-15] MEDS: Cholecalciferol (Vitamin D3) 25 MCG TABLET PO (08:59)
[2024-04-15] MEDS: risperiDONE 1 MG TABLET PO (08:59)
[2024-04-15] MEDS: Memantine HCl 5 MG TABLET PO ×2 (08:59→20:24)
[2024-04-15] MEDS: Famotidine 20 MG TABLET PO (09:00)
[2024-04-15 12:47] VITALS: BP 89/54; PULSE 71; RESP 20
[2024-04-15 18:40] VITALS: BP 93/55; PULSE 89
[2024-04-15 20:00] VITALS: BP 122/69; PULSE 93; RESP 18; TEMP 36.2; O2SAT 96
[2024-04-15] MEDS: risperiDONE 2 MG TABLET PO (20:22)
[2024-04-15] MEDS: Sennosides 8.6 MG TABLET PO (20:22)
[2024-04-15] MEDS: Mirtazapine 15 MG TABLET PO (20:23)
--- NOTE | 2024-04-15 21:08 | HO.PSYCHPN ---
Subjective Subjective Date of Service: 04/15/24 Reason For Visit: Schizoaffective disorder, unspecified type Interim History: c/o vision problems. per staff, no change in presentation. hypotensive at baseline. on midodrine. Mental Status Exam Mental Status Exam Patient Appearance: Fatigued and Disheveled Patient Orientation: Person, Place and Situation Level of Consciousness: Awake and Drowsy Patient Behavior: Dependent and Passive Mood Description: Withdrawn Affect Description: Blunted Patient Cognition Impaired: Yes Ability to Follow Directions: Good Speech Pattern: Impoverished Diagnostics Vital Signs (24Hr): Vital Signs - 24 hr 04/15/24 06:50 04/15/24 08:57 04/15/24 12:47 Temperature 98.4 F Pulse Rate 68 71 Respiratory Rate 20 20 Blood Pressure 99/69 80/53 L 89/54 L Pulse Oximetry 94 Oxygen Delivery Method Room Air 04/15/24 18:40 Temperature Pulse Rate 89 Respiratory Rate Blood Pressure 93/55 L Pulse Oximetry Oxygen Delivery Method BMI result Body Mass Index 19.6 Labs 03/09/24 10:51 03/09/24 10:51 Imaging Radiology Impressions: ITS Impressions Chest X-Ray 11/14/23 15:16 IMPRESSION: No evidence of acute disease. No pulmonary mass, pneumonia or pleural effusion. Chest CT 12/21/23 14:32 IMPRESSION: 1. No focal infiltrate is seen. 2. A 4 mm noncalcified subpleural nodule is seen within the posterior segment of the right upper lobe. According to the UPDATED 2017 Fleischner Society recommendations, the advised follow-up imaging for solid nodules < 6 mm is: LOW RISK PATIENT: No routine follow-up. HIGH RISK PATIENT: Optional CT at 12 months. 3. There is no thoracic lymphadenopathy or pleural effusion. 4. There is a marked kyphoscoliosis. No acute or aggressive osseous lesion is seen. 5. There is mild cholelithiasis. Fleischner guidelines were followed. KUB X-Ray 01/17/24 10:57 IMPRESSION: Multiple prominent, distended air-filled loops of small and large bowel. [id number] amount of stool in the colon. Correlation with clinical exam recommended to determine further management including possible additional imaging with CT scan of the abdomen and pelvis if abdominal pathology is suspected. This study was presented today January 19, 2024 for interpretation. Stat results provided at this time as requested by referring provider. Medications Medications Current Medications Amphetamine/Dextroamphetamine (Dextroamphetamine/Amphetamine Xr 5 Mg Cap.Er.24h) 10 mg PO DAILY [facility] Last Admin: 04/15/24 08:58 Dose: 10 mg Cyanocobalamin (Cyanocobalamin (Vitamin B-12) 1,000 Mcg Tablet) 1,000 mcg PO DAILY [facility] Last Admin: 04/15/24 08:59 Dose: 1,000 mcg Famotidine (Famotidine 20 Mg Tablet) 20 mg PO DAILY [facility] Last Admin: 04/15/24 09:00 Dose: 20 mg Loperamide HCl (Loperamide Hcl 2 Mg Capsule) 2 mg PO Q4H PRN PRN Reason: loose stools Last Admin: 01/13/24 15:22 Dose: 2 mg Magnesium Hydroxide (Milk Of Magnesia 30 Ml Oral.Susp) 30 ml PO BID PRN PRN Reason: Constipation Last Admin: 03/25/24 09:00 Dose: 30 ml Memantine (Memantine Hcl 5 Mg Tablet) 5 mg PO BID [facility] Last Admin: 04/15/24 20:24 Dose: 5 mg Midodrine (Midodrine Hcl 10 Mg Tablet) 10 mg PO TID@0600,1200,1800 [facility] Last Admin: 04/15/24 18:41 Dose: 10 mg Mirtazapine (Mirtazapine 15 Mg Tablet) 15 mg PO BEDTIME [facility] Last Admin: 04/15/24 20:23 Dose: 15 mg Ondansetron HCl (Ondansetron Odt 4 Mg Tab.Rapdis) 4 mg TRANSLINGU Q12H PRN PRN Reason: Nausea and Vomiting Polyethylene Glycol (Polyethylene Glycol 3350 17 Gm Powd.Pack) 17 gm PO DAILY PRN PRN Reason: contipation Last Admin: 03/14/24 08:50 Dose: 17 gm Risperidone (Risperidone 2 Mg Tablet) 2 mg PO BEDTIME [facility] Last Admin: 04/15/24 20:22 Dose: 2 mg Risperidone (Risperidone 1 Mg Tablet) 1 mg PO DAILY [facility] Last Admin: 04/15/24 08:59 Dose: 1 mg Senna (Sennosides 8.6 Mg Tablet) 8.6 mg PO BEDTIME [facility] Last Admin: 04/15/24 20:22 Dose: 8.6 mg Vitamin D (Cholecalciferol (Vitamin D3) 25 Mcg Tablet) 25 mcg PO DAILY [facility] Last Admin: 04/15/24 08:59 Dose: 25 mcg Vortioxetine (Vortioxetine Hydrobromide 10 Mg Tablet) 10 mg PO DAILY [facility] Last Admin: 04/15/24 08:59 Dose: 10 mg Allergies Allergies Allergy/AdvReac Type Severity Reaction Status Date / Time omeprazole Allergy Unknown Verified 10/30/23 00:09 Assessment & Plan Assessment & Plan (1) Schizophrenia: Status: Acute Code(s): F20.9 - Schizophrenia, unspecified (2) Failure to thrive in adult: Status: Acute Code(s): R62.7 - Adult failure to thrive Plan The patient is a 63-year-old male with a past history of schizophrenia who had been in and out of several facilities in the last year with severe hypoactive behavior, catatonic like symptoms and chronic noncompliance who needed to go for [facility] for ECT. Even though that he had been treated with antipsychotics he remains still internally preoccupied. Plan 01/22/2024: No changes to current plan. Will add MiraLax 01/22: no changes 01/23 continue tx 01/24 continue tx. 01/25 continue tx 01/27 continue tx. 01/28: Continue current regimen and plans 01/29: Continue current regimen and plans. 01/30 continue tx. awaiting guardianship. 01/31 continue tx. 02/01 continue tx. 02/02 continue tx. 02/03 continue tx. 02/06 continue tx. 02/08: stable presentation. continue current mgmt. 02/09: no change 02/10: no change 02/11 continue same treatment 02/12 continue same treatment 02/13 continue tx. 02/14 continue tx. 02/15 continue tx 02/17 continue same treatment 02/18: appears slightly more wakeful and energetic than last time this signwriter met with pt. continue current mgmt. 02/19: as per yesterday. 02/20 continue tx. 02/21 continue tx. 02/22 continue tx. 02/24 continue tx. 02/25 no change ? worsening- follow vs get labs if continues to refuse food/hydration 02/27 continue tx. 02/28 continue tx. 03/02: slowed, appears tired/fatigued. poor PO intake. continue current mgmt. 03/03 continue tx. 03/04: continue current management and treatment plan. 03/05: Continue current management and treatment plan. 03/06: Continue current management and treatment plan. 03/07 continue tx. 03/10 cmp elevation in BUN, cr at baseline. BP low even with midodrine, may benefit from IV fluids if refuses increase fluid intake. 03/11 keep same treatment 03/12 keep same treatment 03/13 continue tx. 03/14 continue tx. 03/15 continue tx. 03/16 add am dose of risperidone 0.5mg po daily. 03/17 continue tx. 03/18 continue tx. 03/19 increase daily risperidone to 1mg po daily. continue risperidone 2mg po qhs. 03/20 continue tx. 03/24 continue same treatment 03/25: Continue current regimen and plans 03/26: Continue current regimen and plans 03/27 continue tx. switch provigil to adderall. increase trintellix. 03/28 continue tx. 03/29 continue td 03/30 increase adderall to 10mg po daily 04/01/2024 Continue Adderall mirtazapine Risperdal do not appear to be effective we would consider trial of unilateral ECT consider more stimulating antipsychotic 04/02/2024 See above continue recommendations encourage out of bed 04/03 continue tx. 04/04 continue tx. 04/05 continue tx. 04/06 continue tx. 04/07 continue tx. 04/08 CTP 04/09 continue tx. 04/11 continue tx. 04/12 continue tx. 04/13 continue tx. 04/15: no change in presentation. continue current mgmt. c/o vision problems. Reason for continued inpatient stay Substantial Risk for: inability to function Time Spent With Patient Time: Total time managing care of this patient today ____ minutes.
[2024-04-16 06:46] VITALS: BP 100/65
[2024-04-16] MEDS: Midodrine HCl 10 MG TABLET PO ×3 (06:46→17:33)
[2024-04-16 07:59] VITALS: BP 113/69; PULSE 83; RESP 20; TEMP 36.1; O2SAT 95
[2024-04-16] MEDS: Dextroamphetamine/Amphetamine XR 5 MG CAP.ER.24H 10 MG PO (08:03)
[2024-04-16] MEDS: Vortioxetine Hydrobromide 10 MG TABLET PO (08:03)
[2024-04-16] MEDS: risperiDONE 1 MG TABLET PO (08:03)
[2024-04-16] MEDS: Cholecalciferol (Vitamin D3) 25 MCG TABLET PO (08:03)
[2024-04-16] MEDS: Cyanocobalamin (Vitamin B-12) 1,000 MCG TABLET 1000 MCG PO (08:04)
[2024-04-16] MEDS: Memantine HCl 5 MG TABLET PO ×2 (08:04→21:00)
[2024-04-16] MEDS: Famotidine 20 MG TABLET PO (08:04)
[2024-04-16 11:56] VITALS: BP 111/83; PULSE 93
--- NOTE | 2024-04-16 15:33 | HO.PSYCHPN ---
Subjective Subjective Date of Service: 04/16/24 Reason For Visit: Schizoaffective disorder, unspecified type Interim History: no change in presentation. no questions or concerns. per staff, doing better. showered, ate. Mental Status Exam Mental Status Exam Patient Appearance: Fatigued and Disheveled Patient Orientation: Person, Place and Situation Level of Consciousness: Awake and Drowsy Patient Behavior: Dependent and Passive Mood Description: Withdrawn Affect Description: Blunted Patient Cognition Impaired: Yes Ability to Follow Directions: Good Speech Pattern: Impoverished Diagnostics Vital Signs (24Hr): Vital Signs - 24 hr 04/15/24 18:40 04/15/24 20:00 04/16/24 06:46 Temperature 97.2 F Pulse Rate 89 93 Respiratory Rate 18 Blood Pressure 93/55 L 122/69 100/65 Pulse Oximetry 96 Oxygen Delivery Method Room Air 04/16/24 07:59 04/16/24 11:56 Temperature 97.0 F Pulse Rate 83 93 Respiratory Rate 20 Blood Pressure 113/69 111/83 Pulse Oximetry 95 Oxygen Delivery Method Room Air BMI result Body Mass Index 19.6 Labs 03/09/24 10:51 03/09/24 10:51 Imaging Radiology Impressions: ITS Impressions Chest X-Ray 11/14/23 15:16 IMPRESSION: No evidence of acute disease. No pulmonary mass, pneumonia or pleural effusion. Chest CT 12/21/23 14:32 IMPRESSION: 1. No focal infiltrate is seen. 2. A 4 mm noncalcified subpleural nodule is seen within the posterior segment of the right upper lobe. According to the UPDATED 2017 Fleischner Society recommendations, the advised follow-up imaging for solid nodules < 6 mm is: LOW RISK PATIENT: No routine follow-up. HIGH RISK PATIENT: Optional CT at 12 months. 3. There is no thoracic lymphadenopathy or pleural effusion. 4. There is a marked kyphoscoliosis. No acute or aggressive osseous lesion is seen. 5. There is mild cholelithiasis. Fleischner guidelines were followed. KUB X-Ray 01/17/24 10:57 IMPRESSION: Multiple prominent, distended air-filled loops of small and large bowel. [id number] amount of stool in the colon. Correlation with clinical exam recommended to determine further management including possible additional imaging with CT scan of the abdomen and pelvis if abdominal pathology is suspected. This study was presented today January 19, 2024 for interpretation. Stat results provided at this time as requested by referring provider. Medications Medications Current Medications Amphetamine/Dextroamphetamine (Dextroamphetamine/Amphetamine Xr 5 Mg Cap.Er.24h) 10 mg PO DAILY [facility] Last Admin: 04/16/24 08:03 Dose: 10 mg Cyanocobalamin (Cyanocobalamin (Vitamin B-12) 1,000 Mcg Tablet) 1,000 mcg PO DAILY [facility] Last Admin: 04/16/24 08:04 Dose: 1,000 mcg Famotidine (Famotidine 20 Mg Tablet) 20 mg PO DAILY [facility] Last Admin: 04/16/24 08:04 Dose: 20 mg Loperamide HCl (Loperamide Hcl 2 Mg Capsule) 2 mg PO Q4H PRN PRN Reason: loose stools Last Admin: 01/13/24 15:22 Dose: 2 mg Magnesium Hydroxide (Milk Of Magnesia 30 Ml Oral.Susp) 30 ml PO BID PRN PRN Reason: Constipation Last Admin: 03/25/24 09:00 Dose: 30 ml Memantine (Memantine Hcl 5 Mg Tablet) 5 mg PO BID [facility] Last Admin: 04/16/24 08:04 Dose: 5 mg Midodrine (Midodrine Hcl 10 Mg Tablet) 10 mg PO TID@0600,1200,1800 [facility] Last Admin: 04/16/24 11:58 Dose: 10 mg Mirtazapine (Mirtazapine 15 Mg Tablet) 15 mg PO BEDTIME [facility] Last Admin: 04/15/24 20:23 Dose: 15 mg Ondansetron HCl (Ondansetron Odt 4 Mg Tab.Rapdis) 4 mg TRANSLINGU Q12H PRN PRN Reason: Nausea and Vomiting Polyethylene Glycol (Polyethylene Glycol 3350 17 Gm Powd.Pack) 17 gm PO DAILY PRN PRN Reason: contipation Last Admin: 03/14/24 08:50 Dose: 17 gm Risperidone (Risperidone 2 Mg Tablet) 2 mg PO BEDTIME [facility] Last Admin: 04/15/24 20:22 Dose: 2 mg Risperidone (Risperidone 1 Mg Tablet) 1 mg PO DAILY [facility] Last Admin: 04/16/24 08:03 Dose: 1 mg Senna (Sennosides 8.6 Mg Tablet) 8.6 mg PO BEDTIME [facility] Last Admin: 04/15/24 20:22 Dose: 8.6 mg Vitamin D (Cholecalciferol (Vitamin D3) 25 Mcg Tablet) 25 mcg PO DAILY [facility] Last Admin: 04/16/24 08:03 Dose: 25 mcg Vortioxetine (Vortioxetine Hydrobromide 10 Mg Tablet) 10 mg PO DAILY [facility] Last Admin: 04/16/24 08:03 Dose: 10 mg Allergies Allergies Allergy/AdvReac Type Severity Reaction Status Date / Time omeprazole Allergy Unknown Verified 10/30/23 00:09 Assessment & Plan Assessment & Plan (1) Schizophrenia: Status: Acute Code(s): F20.9 - Schizophrenia, unspecified (2) Failure to thrive in adult: Status: Acute Code(s): R62.7 - Adult failure to thrive Plan The patient is a 63-year-old male with a past history of schizophrenia who had been in and out of several facilities in the last year with severe hypoactive behavior, catatonic like symptoms and chronic noncompliance who needed to go for [facility] for ECT. Even though that he had been treated with antipsychotics he remains still internally preoccupied. Plan 01/22/2024: No changes to current plan. Will add MiraLax 01/22: no changes 01/23 continue tx 01/24 continue tx. 01/25 continue tx 01/27 continue tx. 01/28: Continue current regimen and plans 01/29: Continue current regimen and plans. 01/30 continue tx. awaiting guardianship. 01/31 continue tx. 02/01 continue tx. 02/02 continue tx. 02/03 continue tx. 02/06 continue tx. 02/08: stable presentation. continue current mgmt. 02/09: no change 02/10: no change 02/11 continue same treatment 02/12 continue same treatment 02/13 continue tx. 02/14 continue tx. 02/15 continue tx 02/17 continue same treatment 02/18: appears slightly more wakeful and energetic than last time this speech writer met with pt. continue current mgmt. 02/19: as per yesterday. 02/20 continue tx. 02/21 continue tx. 02/22 continue tx. 02/24 continue tx. 02/25 no change ? worsening- follow vs get labs if continues to refuse food/hydration 02/27 continue tx. 02/28 continue tx. 03/02: slowed, appears tired/fatigued. poor PO intake. continue current mgmt. 03/03 continue tx. 03/04: continue current management and treatment plan. 03/05: Continue current management and treatment plan. 03/06: Continue current management and treatment plan. 03/07 continue tx. 03/10 cmp elevation in BUN, cr at baseline. BP low even with midodrine, may benefit from IV fluids if refuses increase fluid intake. 03/11 keep same treatment 03/12 keep same treatment 03/13 continue tx. 03/14 continue tx. 03/15 continue tx. 03/16 add am dose of risperidone 0.5mg po daily. 03/17 continue tx. 03/18 continue tx. 03/19 increase daily risperidone to 1mg po daily. continue risperidone 2mg po qhs. 03/20 continue tx. 03/24 continue same treatment 03/25: Continue current regimen and plans 03/26: Continue current regimen and plans 03/27 continue tx. switch provigil to adderall. increase trintellix. 03/28 continue tx. 03/29 continue td 03/30 increase adderall to 10mg po daily 04/01/2024 Continue Adderall mirtazapine Risperdal do not appear to be effective we would consider trial of unilateral ECT consider more stimulating antipsychotic 04/02/2024 See above continue recommendations encourage out of bed 04/03 continue tx. 04/04 continue tx. 04/05 continue tx. 04/06 continue tx. 04/07 continue tx. 04/08 CTP 04/09 continue tx. 04/11 continue tx. 04/12 continue tx. 04/13 continue tx. 04/15: no change in presentation. continue current mgmt. c/o vision problems. 04/16: no complaints. same presentation. per staff, doing better. ate and showered. Reason for continued inpatient stay Substantial Risk for: inability to function Time Spent With Patient Time: Total time managing care of this patient today ____ minutes.
[2024-04-16 17:31] VITALS: BP 102/69; PULSE 81; RESP 16; TEMP 36.8; O2SAT 93
[2024-04-16 20:00] VITALS: BP 94/61; PULSE 73; RESP 16; TEMP 37.3; O2SAT 95
[2024-04-16] MEDS: Mirtazapine 15 MG TABLET PO (21:00)
[2024-04-16] MEDS: Sennosides 8.6 MG TABLET PO (21:00)
[2024-04-16] MEDS: risperiDONE 2 MG TABLET PO (21:00)
[2024-04-17 05:30] VITALS: BP 98/64; PULSE 84
[2024-04-17 06:11] VITALS: BP 98/64
[2024-04-17] MEDS: Midodrine HCl 10 MG TABLET PO ×3 (06:11→17:19)
[2024-04-17 08:00] VITALS: BP 115/70; PULSE 66; RESP 17; TEMP 36.2; O2SAT 95
[2024-04-17] MEDS: Vortioxetine Hydrobromide 10 MG TABLET PO (09:12)
[2024-04-17] MEDS: Cholecalciferol (Vitamin D3) 25 MCG TABLET PO (09:13)
[2024-04-17] MEDS: Dextroamphetamine/Amphetamine XR 5 MG CAP.ER.24H 10 MG PO (09:14)
[2024-04-17] MEDS: Cyanocobalamin (Vitamin B-12) 1,000 MCG TABLET 1000 MCG PO (09:14)
[2024-04-17] MEDS: Famotidine 20 MG TABLET PO (09:14)
[2024-04-17] MEDS: risperiDONE 1 MG TABLET PO (09:14)
[2024-04-17] MEDS: Memantine HCl 5 MG TABLET PO ×2 (09:15→21:19)
[2024-04-17 12:00] VITALS: BP 111/85
--- NOTE | 2024-04-17 17:06 | HO.PSYCHPN ---
Subjective Subjective Date of Service: 04/17/24 Reason For Visit: Schizoaffective disorder, unspecified type Interim History: no change in presentation. per staff, no notable events or behaviors. Mental Status Exam Mental Status Exam Patient Appearance: Fatigued and Disheveled Patient Orientation: Person, Place and Situation Level of Consciousness: Awake and Drowsy Patient Behavior: Dependent and Passive Mood Description: Withdrawn Affect Description: Blunted Patient Cognition Impaired: Yes Ability to Follow Directions: Good Speech Pattern: Impoverished Diagnostics Vital Signs (24Hr): Vital Signs - 24 hr 04/16/24 17:31 04/16/24 20:00 04/17/24 05:30 Temperature 98.3 F 99.1 F Pulse Rate 81 73 84 Respiratory Rate 16 16 Blood Pressure 102/69 94/61 98/64 Pulse Oximetry 93 95 Oxygen Delivery Method Room Air Room Air 04/17/24 06:11 04/17/24 08:00 04/17/24 12:00 Temperature 97.2 F Pulse Rate 66 Respiratory Rate 17 Blood Pressure 98/64 115/70 111/85 Pulse Oximetry 95 Oxygen Delivery Method Room Air BMI result Body Mass Index 19.6 Labs 03/09/24 10:51 03/09/24 10:51 Imaging Radiology Impressions: ITS Impressions Chest X-Ray 11/14/23 15:16 IMPRESSION: No evidence of acute disease. No pulmonary mass, pneumonia or pleural effusion. Chest CT 12/21/23 14:32 IMPRESSION: 1. No focal infiltrate is seen. 2. A 4 mm noncalcified subpleural nodule is seen within the posterior segment of the right upper lobe. According to the UPDATED 2017 Fleischner Society recommendations, the advised follow-up imaging for solid nodules < 6 mm is: LOW RISK PATIENT: No routine follow-up. HIGH RISK PATIENT: Optional CT at 12 months. 3. There is no thoracic lymphadenopathy or pleural effusion. 4. There is a marked kyphoscoliosis. No acute or aggressive osseous lesion is seen. 5. There is mild cholelithiasis. Fleischner guidelines were followed. KUB X-Ray 01/17/24 10:57 IMPRESSION: Multiple prominent, distended air-filled loops of small and large bowel. [id number] amount of stool in the colon. Correlation with clinical exam recommended to determine further management including possible additional imaging with CT scan of the abdomen and pelvis if abdominal pathology is suspected. This study was presented today January 19, 2024 for interpretation. Stat results provided at this time as requested by referring provider. Medications Medications Current Medications Amphetamine/Dextroamphetamine (Dextroamphetamine/Amphetamine Xr 5 Mg Cap.Er.24h) 10 mg PO DAILY [facility] Last Admin: 04/17/24 09:14 Dose: 10 mg Cyanocobalamin (Cyanocobalamin (Vitamin B-12) 1,000 Mcg Tablet) 1,000 mcg PO DAILY [facility] Last Admin: 04/17/24 09:14 Dose: 1,000 mcg Famotidine (Famotidine 20 Mg Tablet) 20 mg PO DAILY [facility] Last Admin: 04/17/24 09:14 Dose: 20 mg Loperamide HCl (Loperamide Hcl 2 Mg Capsule) 2 mg PO Q4H PRN PRN Reason: loose stools Last Admin: 01/13/24 15:22 Dose: 2 mg Magnesium Hydroxide (Milk Of Magnesia 30 Ml Oral.Susp) 30 ml PO BID PRN PRN Reason: Constipation Last Admin: 03/25/24 09:00 Dose: 30 ml Memantine (Memantine Hcl 5 Mg Tablet) 5 mg PO BID [facility] Last Admin: 04/17/24 09:15 Dose: 5 mg Midodrine (Midodrine Hcl 10 Mg Tablet) 10 mg PO TID@0600,1200,1800 [facility] Last Admin: 04/17/24 12:00 Dose: 10 mg Mirtazapine (Mirtazapine 15 Mg Tablet) 15 mg PO BEDTIME [facility] Last Admin: 04/16/24 21:00 Dose: 15 mg Ondansetron HCl (Ondansetron Odt 4 Mg Tab.Rapdis) 4 mg TRANSLINGU Q12H PRN PRN Reason: Nausea and Vomiting Polyethylene Glycol (Polyethylene Glycol 3350 17 Gm Powd.Pack) 17 gm PO DAILY PRN PRN Reason: contipation Last Admin: 03/14/24 08:50 Dose: 17 gm Risperidone (Risperidone 2 Mg Tablet) 2 mg PO BEDTIME [facility] Last Admin: 04/16/24 21:00 Dose: 2 mg Risperidone (Risperidone 1 Mg Tablet) 1 mg PO DAILY [facility] Last Admin: 04/17/24 09:14 Dose: 1 mg Senna (Sennosides 8.6 Mg Tablet) 8.6 mg PO BEDTIME [facility] Last Admin: 04/16/24 21:00 Dose: 8.6 mg Vitamin D (Cholecalciferol (Vitamin D3) 25 Mcg Tablet) 25 mcg PO DAILY [facility] Last Admin: 04/17/24 09:13 Dose: 25 mcg Vortioxetine (Vortioxetine Hydrobromide 10 Mg Tablet) 10 mg PO DAILY [facility] Last Admin: 04/17/24 09:12 Dose: 10 mg Allergies Allergies Allergy/AdvReac Type Severity Reaction Status Date / Time omeprazole Allergy Unknown Verified 10/30/23 00:09 Assessment & Plan Assessment & Plan (1) Schizophrenia: Status: Acute Code(s): F20.9 - Schizophrenia, unspecified (2) Failure to thrive in adult: Status: Acute Code(s): R62.7 - Adult failure to thrive Plan The patient is a 63-year-old male with a past history of schizophrenia who had been in and out of several facilities in the last year with severe hypoactive behavior, catatonic like symptoms and chronic noncompliance who needed to go for [facility] for ECT. Even though that he had been treated with antipsychotics he remains still internally preoccupied. Plan 01/22/2024: No changes to current plan. Will add MiraLax 01/22: no changes 01/23 continue tx 01/24 continue tx. 01/25 continue tx 01/27 continue tx. 01/28: Continue current regimen and plans 01/29: Continue current regimen and plans. 01/30 continue tx. awaiting guardianship. 01/31 continue tx. 02/01 continue tx. 02/02 continue tx. 02/03 continue tx. 02/06 continue tx. 02/08: stable presentation. continue current mgmt. 02/09: no change 02/10: no change 02/11 continue same treatment 02/12 continue same treatment 02/13 continue tx. 02/14 continue tx. 02/15 continue tx 02/17 continue same treatment 02/18: appears slightly more wakeful and energetic than last time this bond underwriter met with pt. continue current mgmt. 02/19: as per yesterday. 02/20 continue tx. 02/21 continue tx. 02/22 continue tx. 02/24 continue tx. 02/25 no change ? worsening- follow vs get labs if continues to refuse food/hydration 02/27 continue tx. 02/28 continue tx. 03/02: slowed, appears tired/fatigued. poor PO intake. continue current mgmt. 03/03 continue tx. 03/04: continue current management and treatment plan. 03/05: Continue current management and treatment plan. 03/06: Continue current management and treatment plan. 03/07 continue tx. 03/10 cmp elevation in BUN, cr at baseline. BP low even with midodrine, may benefit from IV fluids if refuses increase fluid intake. 03/11 keep same treatment 03/12 keep same treatment 03/13 continue tx. 03/14 continue tx. 03/15 continue tx. 03/16 add am dose of risperidone 0.5mg po daily. 03/17 continue tx. 03/18 continue tx. 03/19 increase daily risperidone to 1mg po daily. continue risperidone 2mg po qhs. 03/20 continue tx. 03/24 continue same treatment 03/25: Continue current regimen and plans 03/26: Continue current regimen and plans 03/27 continue tx. switch provigil to adderall. increase trintellix. 03/28 continue tx. 03/29 continue td 03/30 increase adderall to 10mg po daily 04/01/2024 Continue Adderall mirtazapine Risperdal do not appear to be effective we would consider trial of unilateral ECT consider more stimulating antipsychotic 04/02/2024 See above continue recommendations encourage out of bed 04/03 continue tx. 04/04 continue tx. 04/05 continue tx. 04/06 continue tx. 04/07 continue tx. 04/08 CTP 04/09 continue tx. 04/11 continue tx. 04/12 continue tx. 04/13 continue tx. 04/14 continue tx. Reason for continued inpatient stay Substantial Risk for: inability to function Time Spent With Patient Time: Total time managing care of this patient today ____ minutes.
[2024-04-17 17:19] VITALS: BP 101/65
[2024-04-17 20:00] VITALS: BP 100/71; PULSE 86; RESP 16; TEMP 36.9; O2SAT 96
[2024-04-17] MEDS: Sennosides 8.6 MG TABLET PO (21:19)
[2024-04-17] MEDS: Mirtazapine 15 MG TABLET PO (21:19)
[2024-04-17] MEDS: risperiDONE 2 MG TABLET PO (21:20)
[2024-04-18 06:32] VITALS: BP 90/56
[2024-04-18] MEDS: Midodrine HCl 10 MG TABLET PO (06:32)
[2024-04-18 08:00] VITALS: BP 86/53; PULSE 59; RESP 16; TEMP 36.3; O2SAT 94
--- NOTE | 2024-04-18 08:59 | PM.PSYDC ---
DS: Providers Provider Date of Service: 04/18/24 Date of admission: 10/29/23 19:04 Date of discharge: 04/18/24 Primary care physician: Unknown Physician Consults: 10/30/23 11:01 Consult to Hospitalist Routine Comment: Consulting Provider: Hospitalist Reason For Exam: medical H&P 11/14/23 13:30 Consult to Hospitalist Routine Comment: Consulting Provider: Hospitalist Reason For Exam: lethargic inc bun low tsh inc bilirubin 11/14/23 15:55 Consult to Gastroenterology Routine Consulting Provider: [facility] G[facility]ology Services Reason for consultation: dysphagia thrush failure thrive Has provider been notified: No 11/23/23 08:41 Consult to Psychiatry Routine Consulting Provider: Psych Covering Reason for consultation: ECT Has provider been notified: Yes Discharging clinician: Roya Condon DS: Diagnosis Discharge Diagnosis (1) Schizophrenia: Status: Acute (2) Failure to thrive in adult: Status: Acute DS: Medications Discharge Medications Home Medications: Home Medications ?Medication ?Instructions ?Recorded ?Confirmed Ativan 1 mg PO Q4-6H PRN Anxiety 10/29/23 10/29/23 Miralax 17 g PO BID 10/29/23 10/29/23 Zofran 4 mg IV Q4-6H PRN Nausea 10/29/23 10/29/23 acetaminophen 650 mg PO Q4-6H 10/29/23 10/29/23 aripiprazole 20 mg PO DAILY 10/29/23 10/29/23 calcium carbonate 500 mg PO Q3-4H PRN Indigestion 10/29/23 10/29/23 divalproex 250 mg PO BID 10/29/23 10/29/23 magnesium hydroxide 15 ml PO DAILY 10/29/23 10/29/23 nystatin 5 ml PO TID 10/29/23 10/29/23 paliperidone 3 mg PO BEDTIME 10/29/23 10/29/23 pantoprazole 40 mg PO DAILY 10/29/23 10/29/23 senna 8.6 mg PO BEDTIME 10/29/23 10/29/23 sodium phosphate 1 appl Not Applicable DAILY PRN 10/29/23 10/29/23 Constipation Mental Status Exam Mental Status Exam Narrative: Appearance: cachectic, malnourished, in NAD Behavior: guarded, not engaging in any conversation Psychomotor: no agitation or retardation noted Speech: mostly clear, regular rate, minimally spontaneous TP: wanting to rest TC: tired Mood: tired Affect: constricted SI: denies HI:denies VH/AH:no overt Delusions: ideas of having won mobile home. Insight/judgment: impaired x 2. memory/cog: alert, not oriented to month, year or situation. Data Imaging Diagnostic Imaging Impressions Chest X-Ray 11/14/23 15:16 IMPRESSION: No evidence of acute disease. No pulmonary mass, pneumonia or pleural effusion. Chest CT 12/21/23 14:32 IMPRESSION: 1. No focal infiltrate is seen. 2. A 4 mm noncalcified subpleural nodule is seen within the posterior segment of the right upper lobe. According to the UPDATED 2017 Fleischner Society recommendations, the advised follow-up imaging for solid nodules < 6 mm is: LOW RISK PATIENT: No routine follow-up. HIGH RISK PATIENT: Optional CT at 12 months. 3. There is no thoracic lymphadenopathy or pleural effusion. 4. There is a marked kyphoscoliosis. No acute or aggressive osseous lesion is seen. 5. There is mild cholelithiasis. Fleischner guidelines were followed. KUB X-Ray 01/17/24 10:57 IMPRESSION: Multiple prominent, distended air-filled loops of small and large bowel. [id number] amount of stool in the colon. Correlation with clinical exam recommended to determine further management including possible additional imaging with CT scan of the abdomen and pelvis if abdominal pathology is suspected. This study was presented today January 19, 2024 for interpretation. Stat results provided at this time as requested by referring provider. DS: Summary Hospital Course Hospital Course: Narrative: Mr. Borjas is a 63 years-old with a hx of schizophrenia. He was initially admitted to psychiatric unit at [facility] in 04/2023 after he was sent from skilled nursing due to suicidal statements, presenting with persecutory and paranoid delusions stating family, government and others were after him because he had millions that he has not been able to access. Prior to going to the skilled nursing pt had been incarcerated for 7 days for violating restraining order that sister had on him for threats to harm her. He was noted to not be eating nor drinking well. He was psychiatrically committed on 05/19/23 and started on olanzapine. He was sent to ED due to dehydration, found to have cholelithiasis, positive aeromonas, treated with IV ceftriaxone. Once medically cleared, he was readmitted to [facility] inpatient psych admission due to inability to care for himself, failure to thrive and committed once again for involuntary psychiatric treatment on 08/10/23. He last admission there was from 07/20-09/06/2023, however, he was sent out about 7 times to the ED, due to severe HOTN and dehydration. [facility] declined to take him back as pt medically more compromised (failure to thrive). Per records, pt was tried on olanzapine, initially then switch to seroquel due to increase confusion with olanzapine. He was also tried on seroquel. He was also tried on clozaril but it states that it was discontinued due to acute mental status changes than improved once clozaril was discontinued. He ultimately treated with combination of abilify, titrated to 20mg po daily, depakote. It does appear that pt did not show any significant improvement and was mostly in bed, with very limited oral intake. On the unit, pt reports he was in the hospital because they were concern about the fact that he was not eating nor drinking. He asked this conventional mortgage underwriter to let him sleep, because he felt tired and declined to answer any more questions. He refused all medications today. He also refused labs. 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 Pt was mostly in bed, minimally interacting with peers or staff, decreased oral intake. Pt presented with some paranoid delusions thinking his sister was the one who wanted him here on the unit. CV was revoked as pt was deteriorating and there was hope that ECT could be most effective for his presentation after several antipsychotic trials with no significant improvement. Petition for involuntary treatment was filed including ECT as main treatment, which was granted. He had a total of 8 ECT treatment, mostly right unilateral, and last one was bilateral. He showed some mild improvement after 5 ECT treatment in that he came out of his room and requested hair cut and showered. He also sat with peers and introduced himself. However, improvement after that plateau. He was visible for meals, but minimally interactive with peers or staff. His oral intake did improved. Over the course of this admission his BMI went from 17 to 19. His poverty of speech continued to be significant. He reported thinking that he heard on TV that he had [place]. He was not oriented to month, year, situation nor year. He was unable to complete clock draw test showing significant stimulus-bound behavior and unable to re-code and severe conceptual deficit showing severe semantic memory deficits. His most salient and debilitating symptom seem to be abulia. Several medications to target this symptoms along with depression. He was started on trintellix, which was titrated to 10mg po daily. He was initially trialed on provigil and has somewhat of response but then he was switched to adderall which seemed to be slightly more effecting in more spontaneous speech and briefly more interaction with those who directly approach him. He was sleeping for the most part but would have times when he would sleep only 5-6hrs. He took medications most of the time consistently with rare instances of declining for unclear reason. He had no episodes of disruptive behaviors nor need for restraints. His BP was low even after appropriate fluid intake. He was started on midodrine. Status at Discharge Cognitive/behavioral status at discharge: Pt with constricted affect. No aggression towards self or others. No SI/HI. residual delusions. POverty of thought, avoidance of interaction with others. Abulia. Sleeping and eating well. Functional status at discharge: independent ambulation Overall status at discharge: patient is progressing back to baseline Time Spent with Patient Time attestation: Total time managing care of this patient today __35__ minutes. Time spent: Greater than 30 minutes Discharge Plan Discharge Anticipated Discharge Date/Time: 04/18/24 08:49 Patient Disposition: er SNF Discharge Diagnosis: Schizophrenia Referrals: Olvin Pham [Other] - 04/18/24 10:30 am (Transfer to [facility] on Wednesday04/18/24 at 1030) Discharge Medications: New sennosides [Senna Lax] 8.6 mg Tablet 8.6 mg PO BEDTIME Qty: 0 0RF cyanocobalamin (vitamin B-12) [Vitamin B-12] 1,000 mcg Tablet 1,000 mcg PO DAILY Qty: 0 0RF risperidone 2 mg Tablet 2 mg PO BEDTIME Qty: 0 0RF famotidine 20 mg Tablet 20 mg PO DAILY Qty: 0 0RF risperidone 1 mg Tablet 1 mg PO DAILY Qty: 0 0RF midodrine 10 mg Tablet 10 mg PO TID@0600,1200,1800 Qty: 0 0RF memantine 5 mg Tablet 5 mg PO BID Qty: 0 0RF cholecalciferol (vitamin D3) 25 mcg (1,000 unit) Tablet 25 mcg PO DAILY Qty: 0 0RF Trintellix 10 mg Tablet 10 mg PO DAILY Qty: 0 0RF mirtazapine 15 mg Tablet 15 mg PO BEDTIME Qty: 0 0RF Discontinued Ativan 1 mg PO Q4-6H PRN (Reason: Anxiety) Miralax packet 17 g PO BID acetaminophen 650 mg PO Q4-6H aripiprazole 20 mg PO DAILY calcium carbonate 500 mg PO Q3-4H PRN (Reason: Indigestion) divalproex 250 mg PO BID magnesium hydroxide 15 ml PO DAILY nystatin 5 ml PO TID paliperidone 3 mg PO BEDTIME pantoprazole 40 mg PO DAILY senna 8.6 mg PO BEDTIME Zofran 4 mg IV Q4-6H PRN (Reason: Nausea) sodium phosphate enema 1 appl Not Applicable DAILY PRN (Reason: Constipation) Discharge Orders: Discharge Order (Routine); Ordered 04/18/24 Ordered By: Roya Condon Diet: Regular diet Activity on Discharge: As tolerated Stand Alone Forms: Patient Portal Discharge page, Community Support Print Language: Citizen Of [place] Care Plan Goals: maintain mood No aggression towards self or others No SI/HI Health Concerns: Follow up with PCP- hypotensive, on midodrine Plan of Treatment: 1. take medications as prescribed 2. go to nearest ED or call 911 in event of emergency Assessment: Pt with constricted affect. No agitation or retardation noted. severe poverty of thought. residual delusions of having trailer he [place]. Severe abulia and negative symptoms. Discharge Date/Time: 04/18/24 10:59
--- NOTE | 2024-04-18 10:05 | PC.NURSE ---
Pt refused all his am meds. BP 86/53, P 59, T 97.4, O2sat 94% on RA. Provider aware. No c/o pain. No SOB or respiratory distress noted. Will continue to monitor.
--- NOTE | 2024-04-18 11:19 | PC.NURSE ---
Darryl aware of discharge, reported readiness to be discharge. D/C instructions given to the patient. Darryl took his belongings. Left the unit via [facility] at 10:59 to [facility].
--- NOTE | 2024-04-26 16:27 | HO.ECTPROC ---
ECT Procedure Note Diagnosis/Treatment Date of Service: 12/24/23 Diagnosis: Schizoaffective Disorder Previous ECT Date: 12/22/23 Current Treatment Number: 10 Treatment: Series Interval Clinical Notes: Patient depressed withdrawn thought blocking hesitant anergic continues ect ? initial benefit Time: Total time managing care of this patient today ____ minutes. ECT Settings Device: THYMATRON DGx Electrode Placement: Rt temporal/ Lt frontal Program/Pulse Width: 0.50 Energy Percent: 100 Seizure Duration By EEG (in seconds): 32 (computer didn't record seizure but seizure activity until 34 s) Medications Administration General Anesthetic: Etomidate (16) Muscle Relaxant: Succinylcholine (100) Ancillary Medications Anti-emetics: Zofran - Pre ECT Airway Management Airway Management: Bag Mask Ventilation Treatment Recommendations Notes: would stop ect then reevaluate Pt Tolerated Procedure w/o Issue: Yes
== END 2024-04-18 10:59 | disposition skilled nursing facility (03) | DRG 885 ==
PROVIDERS: Clinical Nurse Specialist Psychiatric/Mental Health, Adult; Physician Assistant; Psychiatry & Neurology Psychiatry; Social Worker; Admitting Provider Psychiatry & Neurology Psychiatry; Visit Provider Psychiatry & Neurology Psychiatry
PROC: (CPT 90870; principal; 2023-12-03 08:00)
PROC: GZB4ZZZ Other Electroconvulsive Therapy (ICD-10-PCS; CPT 90870; principal; 2023-12-06 07:30)
DX: F20.9 Schizophrenia, unspecified (principal); Z59.02 Unsheltered homelessness; R64 Cachexia; Z68.1 Body mass index [BMI] 19.9 or less, adult; I95.1 Orthostatic hypotension; R62.7 Adult failure to thrive; K21.9 Gastro-esophageal reflux disease without esophagitis; F03.90 Unspecified dementia, unspecified severity, without behavioral disturbance, psychotic disturbance, mood disturbance, and anxiety; E86.1 Hypovolemia; Z75.1 Person awaiting admission to adequate facility elsewhere; Z79.899 Other long term (current) drug therapy
CPT/HCPCS: 36415; 71045; 71250; 74018; 80053; 82306; 82607; 82746; 82947; 83735; 84100; 84132; 84439; 84443; 85025; 85652; 86038; 86039; 86140; 86780; 90870; 92526; 92610; 93005; J0330; J1596; J1805; J2405; J2704; J7120

== ENCOUNTER → 2023-10-29 19:04 | Outpatient (BNV) | payer MEDICARE, SELFPAY | PROVIDERS: Admitting Provider Psychiatry & Neurology Psychiatry; Visit Provider Internal Medicine Gastroenterology | DX: R62.7 Adult failure to thrive (principal); K21.9 Gastro-esophageal reflux disease without esophagitis | CPT/HCPCS: 99222 ==

== ENCOUNTER → 2023-10-29 19:04 | Outpatient (BNV) | payer MEDICARE, SELFPAY | PROVIDERS: Admitting Provider Psychiatry & Neurology Psychiatry; Visit Provider Social Worker | DX: F20.0 Paranoid schizophrenia (principal); R62.7 Adult failure to thrive | CPT/HCPCS: 90792; 90870; 99231; 99232; 99239 ==

== ENCOUNTER → 2023-10-29 19:04 | Outpatient (BNV) | payer MEDICARE, SELFPAY | PROVIDERS: Admitting Provider Psychiatry & Neurology Psychiatry; Visit Provider Physician Assistant | DX: Z02.2 Encounter for examination for admission to residential institution (principal); R62.7 Adult failure to thrive | CPT/HCPCS: 99429; 99499 ==

== ENCOUNTER → 2023-10-29 19:04 | Outpatient (BNV) | payer MEDICARE, SELFPAY | PROVIDERS: Admitting Provider Psychiatry & Neurology Psychiatry; Visit Provider Psychiatry & Neurology Psychiatry | DX: F20.0 Paranoid schizophrenia (principal) | CPT/HCPCS: 90870; 99231; 99232 ==